=== PATIENT | male | born 1965 | race Caucasian/White ===

== ENCOUNTER 2021-06-19 14:11 | Inpatient (IN) | payer MEDICARE, OTHER ==
[2021-06-19] MEDS ORDERED: SODIUM CHLORIDE 0.9% 1,000 ML IV STA ×2 (15:05)
[2021-06-19 15:23] LABS: ALT 123 U/L (4-49); AST 99 U/L (17-59); African American GFR (CKD) >90 (>60 ml/min/1.73 sqM); Albumin 3.1 g/dL (3.5-5.0); Alkaline Phosphatase 208 U/L (38-126); Anion Gap 10 mmol/L; Basophils % (A) 0 %; Blood Urea Nitrogen 16 mg/dL (9-20); Carbon Dioxide 22 mmol/L (22-30); Chloride 97 mmol/L (98-107); Creatine Kinase 25 U/L (55-170); Eosinophils # (A) 0.3 k/uL (0-0.7); Eosinophils % (A) 3 %; Glucose 122 mg/dL (74-99); HGB 12.5 gm/dL (13.0-17.5); Lipase 23 U/L (23-300); Lymphocytes # (A) 0.9 k/uL (1.0-4.8); Lymphocytes % (A) 9 %; MCHC 32.9 g/dL (31.0-37.0); MCV 88.2 fL (80.0-100.0); Magnesium 1.8 mg/dL (1.6-2.3); Mean Platelet Volume 7.1; Monocytes # (A) 0.7 k/uL (0-1.0); Monocytes % (A) 6 %; Neutrophils # (A) 8.7 k/uL (1.3-7.7); Neutrophils % (A) 81 %; Non-African American GFR(CKD) >90 (>60 ml/min/1.73 sqM); Platelet Count 596 k/uL (150-450); Potassium 5.2 mmol/L (3.5-5.1); RBC 4.31 m/uL (4.30-5.90); RDW 13.2 % (11.5-15.5); Sodium 129 mmol/L (137-145); Total Bilirubin 0.8 mg/dL (0.2-1.3); Total Protein 6.5 g/dL (6.3-8.2); WBC 10.7 k/uL (3.8-10.6)
--- NOTE | 2021-06-19 15:27 | XR ---
EXAMINATION TYPE: XR chest 2V DATE OF EXAM: 06/19/2021 COMPARISON: 03/27/2017 HISTORY: Shortness of breath TECHNIQUE: Frontal and lateral views of the chest are obtained. FINDINGS: Scattered senescent parenchymal changes noted. Hyperinflation compatible with COPD. Coarse upper lobe infiltrates with underlying emphysematous change. Correlate for underlying pneumoni a. Superimposed interstitial lung disease difficult to exclude. Heart size is stable. Mediastinal structures are stable and grossly unremarkable. No evidence for hilar prominence. Degenerative changes dorsal spine. IMPRESSION: 1. Coarse upper lobe infiltrates with underlying emphysematous change. Correlate for underlying pneum onia. Superimposed interstitial lung disease difficult to exclude.
--- NOTE | 2021-06-19 16:19 | ED ---
Dizziness HPI - General Chief Complaint: Syncope Stated Complaint: FLORA Time Seen by Provider: 06/19/21 14:15 Source: patient, RN notes reviewed Mode of arrival: ambulatory Limitations: no limitations - History of Present Illness Initial Comments: 56-year-old male with a history of smoking history of heart disease who presents with complaints of weakness and near syncopal episodes. Lightheaded. He states she's been having black out episodes for past week or so he was found at home they have a blood pressure 71/47. He does admit to decreased oral intake and the 15th 20 pound weight loss over last month or so. He states he is urinating dark foul-smelling urine he was found have a temperature 100.5 upon arrival to emergency department orally but he does admit to smoking a cigarette just prior to coming in. He does not feel short of breath at this time he did earlier today he does get exertional dyspnea. No other current complaints or modifying factors MD Complaint: dizziness, lightheadedness, near syncope - Related Data Home Medications Medication Instructions Recorded Confirmed Buprenorphine HCl/Naloxone HCl 1 film SL TID 03/13/15 06/19/21 [Suboxone 8 mg-2 mg Sl Film] Aspirin [Adult Low Dose Aspirin EC] 81 tab PO DAILY 03/28/17 06/19/21 Albuterol Inhaler [Ventolin Hfa 2 puff INHALATION RT-QID PRN 06/19/21 06/19/21 Inhaler] Atorvastatin [Lipitor] 40 mg PO DAILY 06/19/21 06/19/21 Budesonide/Formoterol Fumarate 2 puff INHALATION RT-BID PRN 06/19/21 06/19/21 [Symbicort 160-4.5 Mcg Inhaler] Carvedilol [Coreg] 6.25 mg PO BID 06/19/21 06/19/21 Fluticasone/Umeclidin/Vilanter 1 puff INHALATION RT-DAILY PRN 06/19/21 06/19/21 [Trelegy Ellipta 200-62.5-25] Nicotine 21Mg/24Hr Patch [Habitrol] 1 patch TRANSDERM DAILY PRN 06/19/21 06/19/21 Sacubitril/Valsartan [Entresto 97 1 tab PO BID 06/19/21 06/19/21 mg-103 mg Tablet] Allergies Allergy/AdvReac Type Severity Reaction Status Date / Time clopidogrel bisulfate Allergy Dyspnea,HIV Verified 06/19/21 16:32 [From Plavix] ES,SWELLING Review of Systems ROS Statement: Those systems with pertinent positive or pertinent negative responses have been documented in the HPI. ROS Other: All systems not noted in ROS Statement are negative. 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, takes saboxone Last Myocardial Infarction Date:: 2008 History of Any Multi-Drug Resistant Organisms: None Reported Past Surgical History: Heart Catheterization, Heart Catheterization With Stent, Hernia Repair, Pacemaker Additional Past Surgical History / Comment(s): CARPAL TUNNEL BILATERAL, Heart cath 9 times with 5 stents Past Anesthesia/Blood Transfusion Reactions: No Reported Reaction Date of Last Stent Placement:: 2010 Type of Cardiac Device: Permanent Pacemaker Device Placement Date:: 2008 Past Psychological History: No Psychological Hx Reported Smoking Status: Current every day smoker Past Alcohol Use History: None Reported Past Drug Use History: Marijuana - Past Family History Father Family Medical History: No Reported History Mother Family Medical History: Myocardial Infarction ([place]) General Exam - General Exam Comments Initial Comments: This a well-developed thin appearing male who is awake alert oriented 3 Limitations: no limitations General appearance: alert, in no apparent distress Head exam: Present: atraumatic, normocephalic, normal inspection Eye exam: Present: normal appearance, PERRL, EOMI. Absent: scleral icterus, conjunctival injection, periorbital swelling ENT exam: Present: mucous membranes dry Neck exam: Present: normal inspection, full ROM, other. Absent: tenderness, meningismus, lymphadenopathy Respiratory exam: Present: decreased breath sounds. Absent: respiratory distress, wheezes, rales, rhonchi, stridor Cardiovascular Exam: Present: normal rhythm, tachycardia (No stridor JVD or bruits), normal heart sounds. Absent: systolic murmur, diastolic murmur, rubs, gallop, clicks GI/Abdominal exam: Present: soft, normal bowel sounds. Absent: distended, tenderness, guarding, rebound, rigid, bruit, pulsatile mass Extremities exam: Present: normal inspection, full ROM, normal capillary refill. Absent: tenderness, pedal edema, joint swelling, calf tenderness Back exam: Present: normal inspection Neurological exam: Present: alert, oriented X3, CN II-XII intact Psychiatric exam: Present: normal affect, normal mood Skin exam: Present: warm, dry, intact, normal color. Absent: rash Course Vital Signs 06/19/21 06/19/21 06/19/21 14:23 14:47 18:52 Temperature 100.1 F H Pulse Rate 105 H 90 82 Respiratory 20 18 20 Rate Blood Pressure 83/51 106/62 93/70 O2 Sat by Pulse 95 92 L 92 L Oximetry EKG Findings - EKG Results: EKG: interpreted by ERMD (Sinus rhythm 98. Interval 123 QRS 101 QT since QTC 360/372 poor R-wave progression no apparent acute ST-T wave changes.) Medical Decision Making - Medical Decision Making I did discuss findings with patient and his as well as with Dr. Pretty. Patient will be admitted for inpatient evaluation and treatment evidence pneumonia due to the symptom complex concern for neoplasm. Pulmonary medicine will be consulted - Lab Data Result diagrams: 06/19/21 15:07 06/19/21 15:07 Lab Results 06/19/21 06/19/21 06/19/21 Range/Units 14:45 15:07 15:07 WBC 10.7 H (3.8-10.6) k/uL RBC 4.31 (4.30-5.90) m/uL Hgb 12.5 L (13.0-17.5) gm/dL Hct 38.0 L (39.0-53.0) % MCV 88.2 (80.0-100.0) fL MCH 29.0 (25.0-35.0) pg MCHC 32.9 (31.0-37.0) g/dL RDW 13.2 (11.5-15.5) % Plt Count 596 H (150-450) k/uL MPV 7.1 Neutrophils % 81 % Lymphocytes % 9 % Monocytes % 6 % Eosinophils % 3 % Basophils % 0 % Neutrophils # 8.7 H (1.3-7.7) k/uL Lymphocytes # 0.9 L (1.0-4.8) k/uL Monocytes # 0.7 (0-1.0) k/uL Eosinophils # 0.3 (0-0.7) k/uL Basophils # 0.0 (0-0.2) k/uL Sodium 129 L (137-145) mmol/L Potassium 5.2 H (3.5-5.1) mmol/L Chloride 97 L (98-107) mmol/L Carbon Dioxide 22 (22-30) mmol/L Anion Gap 10 mmol/L BUN 16 (9-20) mg/dL Creatinine 0.73 (0.66-1.25) mg/dL Est GFR (CKD-EPI)AfAm >90 (>60 ml/min/1.73 sqM) Est GFR (CKD-EPI)NonAf >90 (>60 ml/min/1.73 sqM) Glucose 122 H (74-99) mg/dL Plasma Lactic Acid Yevgeniy (0.7-2.0) mmol/L Calcium 9.0 (8.4-10.2) mg/dL Magnesium 1.8 (1.6-2.3) mg/dL Total Bilirubin 0.8 (0.2-1.3) mg/dL AST 99 H (17-59) U/L ALT 123 H (4-49) U/L Alkaline Phosphatase 208 H (38-126) U/L Creatine Kinase 25 L (55-170) U/L Troponin I (0.000-0.034) ng/mL Total Protein 6.5 (6.3-8.2) g/dL Albumin 3.1 L (3.5-5.0) g/dL Lipase 23 (23-300) U/L Coronavirus (PCR) Not Detected (Not Detectd) 06/19/21 06/19/21 Range/Units 15:07 15:07 WBC (3.8-10.6) k/uL RBC (4.30-5.90) m/uL Hgb (13.0-17.5) gm/dL Hct (39.0-53.0) % MCV (80.0-100.0) fL MCH (25.0-35.0) pg MCHC (31.0-37.0) g/dL RDW (11.5-15.5) % Plt Count (150-450) k/uL MPV Neutrophils % % Lymphocytes % % Monocytes % % Eosinophils % % Basophils % % Neutrophils # (1.3-7.7) k/uL Lymphocytes # (1.0-4.8) k/uL Monocytes # (0-1.0) k/uL Eosinophils # (0-0.7) k/uL Basophils # (0-0.2) k/uL Sodium (137-145) mmol/L Potassium (3.5-5.1) mmol/L Chloride (98-107) mmol/L Carbon Dioxide (22-30) mmol/L Anion Gap mmol/L BUN (9-20) mg/dL Creatinine (0.66-1.25) mg/dL Est GFR (CKD-EPI)AfAm (>60 ml/min/1.73 sqM) Est GFR (CKD-EPI)NonAf (>60 ml/min/1.73 sqM) Glucose (74-99) mg/dL Plasma Lactic Acid Yevgeniy 1.6 (0.7-2.0) mmol/L Calcium (8.4-10.2) mg/dL Magnesium (1.6-2.3) mg/dL Total Bilirubin (0.2-1.3) mg/dL AST (17-59) U/L ALT (4-49) U/L Alkaline Phosphatase (38-126) U/L Creatine Kinase (55-170) U/L Troponin I <0.012 (0.000-0.034) ng/mL Total Protein (6.3-8.2) g/dL Albumin (3.5-5.0) g/dL Lipase (23-300) U/L Coronavirus (PCR) (Not Detectd) - Radiology Data Radiology results: report reviewed (Imaging reviewed evidence of bilateral upper lobe infiltrates), image reviewed Disposition Clinical Impression: Bilateral upper lobe pneumonia due to Escherichia coli, Febrile illness, acute, Dehydration, Failure to thrive in adult Disposition: ADMITTED IP TO THIS HOSP Condition: Fair Referrals: Celso Garcia MD [Primary Care Provider] - 1-2 days
[2021-06-19] MEDS ORDERED: LOPERAMIDE 2 MG CAP PO PRN (18:37)
[2021-06-19] MEDS ORDERED: ONDANSETRON 4 MG/2 ML VIAL IVP PRN (18:37)
[2021-06-19] MEDS ORDERED: MAG HYDROX/AL HYDROX/SIMETH 30 ML CUP PO PRN (18:37)
[2021-06-19] MEDS ORDERED: NALOXONE 0.4 MG/ML 1 ML VIAL IV PRN (18:37)
[2021-06-19] MEDS ORDERED: cefTRIAXone IN SWFI 1,000 MG/10 ML SYRINGE IVP STA (18:39)
[2021-06-19] MEDS ORDERED: SYMBICORT 160-4.5 MCG INHALER INHALATION PRN (18:42)
--- NOTE | 2021-06-19 18:45 | P.HPIM ---
History of Present Illness H&P Date: 06/19/21 This 56-year-old male with past medical history of coronary artery disease status post multiple stents COPD hypertension admitted to the hospital for not feeding well for the last several days feeding weak feeling dizzy losing weight Review of systems and systems has been reviewed all negative and positive findings as per history of present illness Constitutional: No acute distress, conversant, pleasant Eyes: Anicteric sclerae, moist conjunctiva, no lid-lag PERRLA ENMT: NC/AT Oropharynx clear, no erythema, exudates Neck: Supple, FROM, no masses, or JVD No carotid bruits No thyromegaly Lungs: Clear to auscultation Clear to percussion Normal respiratory effort, no accessory muscle use Cardiovascular: Heart regular in rate and rhythm, No murmurs, gallops, or rubs No peripheral edema Abdominal: Soft Nontender, no guarding, rebound or rigidity Abdomen moving with respiration Normoactive bowel sounds No hepatomegaly, No splenomegaly No palpable mass No abdominal wall hernia noted Skin: Normal temperature, tone, texture, turgor No induration No subcutaneous nodules No rash, lesions No ulcers Extremities: No digital cyanosis No clubbing Pedal pulses intact and symmetrical Radial pulses intact and symmetrical Normal gait and station No calf tenderness Psychiatric:Alert and oriented to person, place and time Appropriate affect Intact judgement Neuro: Muscles Strength 5/5 in all 4 extremities Sensation to light touch grossly present throughout Cranial nerves II-XII grossly intact No focal sensory deficits Suspected pneumonia we'll start the patient on IV antibiotics Lung mass and malignancy cannot be ruled out initially we'll check d-dimer if it's positive we'll check computed tomography scan of the lungs to rule out PE if not we'll check computed tomography scan of the lungs with IV contrast will consult pulmonology Current artery disease with dizziness we'll check troponins and will consult cardiology Status post pacemaker and defibrillator placement Multiple medical problems Past Medical History Past Medical History: Atrial Fibrillation, Coronary Artery Disease (CAD), Chest Pain / Angina, Heart Failure, COPD, Myocardial Infarction ([place]) Additional Past Medical History / Comment(s): 3 MIs in 2008, 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, takes saboxone Last Myocardial Infarction Date:: 2008 History of Any Multi-Drug Resistant Organisms: None Reported Past Surgical History: Heart Catheterization, Heart Catheterization With Stent, Hernia Repair, Pacemaker Additional Past Surgical History / Comment(s): CARPAL TUNNEL BILATERAL, Heart cath 9 times with 5 stents Past Anesthesia/Blood Transfusion Reactions: No Reported Reaction Date of Last Stent Placement:: 2010 Type of Cardiac Device: Permanent Pacemaker Device Placement Date:: 2008 Past Psychological History: No Psychological Hx Reported Smoking Status: Current every day smoker Past Alcohol Use History: None Reported Past Drug Use History: Marijuana - Past Family History Father Family Medical History: No Reported History Mother Family Medical History: Myocardial Infarction ([place]) Medications and Allergies Home Medications Medication Instructions Recorded Confirmed Type Buprenorphine HCl/Naloxone HCl 1 film SL TID 03/13/15 06/19/21 History [Suboxone 8 mg-2 mg Sl Film] Aspirin [Adult Low Dose Aspirin EC] 81 tab PO DAILY 03/28/17 06/19/21 History Albuterol Inhaler [Ventolin Hfa 2 puff INHALATION RT-QID PRN 06/19/21 06/19/21 History Inhaler] Atorvastatin [Lipitor] 40 mg PO DAILY 06/19/21 06/19/21 History Budesonide/Formoterol Fumarate 2 puff INHALATION RT-BID PRN 06/19/21 06/19/21 History [Symbicort 160-4.5 Mcg Inhaler] Carvedilol [Coreg] 6.25 mg PO BID 06/19/21 06/19/21 History Fluticasone/Umeclidin/Vilanter 1 puff INHALATION RT-DAILY PRN 06/19/21 06/19/21 History [Trelegy Ellipta 200-62.5-25] Nicotine 21Mg/24Hr Patch [Habitrol] 1 patch TRANSDERM DAILY PRN 06/19/21 06/19/21 History Sacubitril/Valsartan [Entresto 97 1 tab PO BID 06/19/21 06/19/21 History mg-103 mg Tablet] Allergies Allergy/AdvReac Type Severity Reaction Status Date / Time clopidogrel bisulfate Allergy Dyspnea,HIV Verified 06/19/21 16:32 [From Plavix] ES,SWELLING Physical Exam Vitals: Vital Signs Temp Pulse Resp BP Pulse Ox 06/19/21 14:47 90 18 106/62 92 L 06/19/21 14:23 100.1 F H 105 H 20 83/51 95 Intake and Output 06/19/21 06/19/21 06/19/21 06:59 14:59 22:59 Other: Weight 50.802 kg Results CBC & Chem 7: 06/19/21 15:07 06/19/21 15:07 Labs: Abnormal Lab Results - Last 24 Hours (Table) 06/19/21 06/19/21 Range/Units 15:07 15:07 WBC 10.7 H (3.8-10.6) k/uL Hgb 12.5 L (13.0-17.5) gm/dL Hct 38.0 L (39.0-53.0) % Plt Count 596 H (150-450) k/uL Neutrophils # 8.7 H (1.3-7.7) k/uL Lymphocytes # 0.9 L (1.0-4.8) k/uL Sodium 129 L (137-145) mmol/L Potassium 5.2 H (3.5-5.1) mmol/L Chloride 97 L (98-107) mmol/L Glucose 122 H (74-99) mg/dL AST 99 H (17-59) U/L ALT 123 H (4-49) U/L Alkaline Phosphatase 208 H (38-126) U/L Creatine Kinase 25 L (55-170) U/L Albumin 3.1 L (3.5-5.0) g/dL
[2021-06-19] MEDS ORDERED: PNEUMONIA PROTOCOL UTILIZED 1 EACH MISC PO PRN (18:58)
--- NOTE | 2021-06-19 19:05 | ED ---
Medical Decision Making - Lab Data Result diagrams: 06/19/21 15:07 06/19/21 15:07 Lab Results 06/19/21 06/19/21 06/19/21 Range/Units 14:45 15:07 15:07 WBC 10.7 H (3.8-10.6) k/uL RBC 4.31 (4.30-5.90) m/uL Hgb 12.5 L (13.0-17.5) gm/dL Hct 38.0 L (39.0-53.0) % MCV 88.2 (80.0-100.0) fL MCH 29.0 (25.0-35.0) pg MCHC 32.9 (31.0-37.0) g/dL RDW 13.2 (11.5-15.5) % Plt Count 596 H (150-450) k/uL MPV 7.1 Neutrophils % 81 % Lymphocytes % 9 % Monocytes % 6 % Eosinophils % 3 % Basophils % 0 % Neutrophils # 8.7 H (1.3-7.7) k/uL Lymphocytes # 0.9 L (1.0-4.8) k/uL Monocytes # 0.7 (0-1.0) k/uL Eosinophils # 0.3 (0-0.7) k/uL Basophils # 0.0 (0-0.2) k/uL Sodium 129 L (137-145) mmol/L Potassium 5.2 H (3.5-5.1) mmol/L Chloride 97 L (98-107) mmol/L Carbon Dioxide 22 (22-30) mmol/L Anion Gap 10 mmol/L BUN 16 (9-20) mg/dL Creatinine 0.73 (0.66-1.25) mg/dL Est GFR (CKD-EPI)AfAm >90 (>60 ml/min/1.73 sqM) Est GFR (CKD-EPI)NonAf >90 (>60 ml/min/1.73 sqM) Glucose 122 H (74-99) mg/dL Plasma Lactic Acid Yevgeniy (0.7-2.0) mmol/L Calcium 9.0 (8.4-10.2) mg/dL Magnesium 1.8 (1.6-2.3) mg/dL Total Bilirubin 0.8 (0.2-1.3) mg/dL AST 99 H (17-59) U/L ALT 123 H (4-49) U/L Alkaline Phosphatase 208 H (38-126) U/L Creatine Kinase 25 L (55-170) U/L Troponin I (0.000-0.034) ng/mL Total Protein 6.5 (6.3-8.2) g/dL Albumin 3.1 L (3.5-5.0) g/dL Lipase 23 (23-300) U/L Coronavirus (PCR) Not Detected (Not Detectd) 06/19/21 06/19/21 Range/Units 15:07 15:07 WBC (3.8-10.6) k/uL RBC (4.30-5.90) m/uL Hgb (13.0-17.5) gm/dL Hct (39.0-53.0) % MCV (80.0-100.0) fL MCH (25.0-35.0) pg MCHC (31.0-37.0) g/dL RDW (11.5-15.5) % Plt Count (150-450) k/uL MPV Neutrophils % % Lymphocytes % % Monocytes % % Eosinophils % % Basophils % % Neutrophils # (1.3-7.7) k/uL Lymphocytes # (1.0-4.8) k/uL Monocytes # (0-1.0) k/uL Eosinophils # (0-0.7) k/uL Basophils # (0-0.2) k/uL Sodium (137-145) mmol/L Potassium (3.5-5.1) mmol/L Chloride (98-107) mmol/L Carbon Dioxide (22-30) mmol/L Anion Gap mmol/L BUN (9-20) mg/dL Creatinine (0.66-1.25) mg/dL Est GFR (CKD-EPI)AfAm (>60 ml/min/1.73 sqM) Est GFR (CKD-EPI)NonAf (>60 ml/min/1.73 sqM) Glucose (74-99) mg/dL Plasma Lactic Acid Yevgeniy 1.6 (0.7-2.0) mmol/L Calcium (8.4-10.2) mg/dL Magnesium (1.6-2.3) mg/dL Total Bilirubin (0.2-1.3) mg/dL AST (17-59) U/L ALT (4-49) U/L Alkaline Phosphatase (38-126) U/L Creatine Kinase (55-170) U/L Troponin I <0.012 (0.000-0.034) ng/mL Total Protein (6.3-8.2) g/dL Albumin (3.5-5.0) g/dL Lipase (23-300) U/L Coronavirus (PCR) (Not Detectd) Disposition Clinical Impression: Bilateral upper lobe pneumonia due to Escherichia coli, Febrile illness, acute, Dehydration, Failure to thrive in adult, Hypotensive episode Disposition: ADMITTED IP TO THIS HOSP Condition: Fair Referrals: Celso Garcia MD [Primary Care Provider] - 1-2 days
--- NOTE | 2021-06-19 19:52 | CT ---
EXAMINATION TYPE: CT brain wo con DATE OF EXAM: 06/19/2021 COMPARISON: None HISTORY: Dizziness. CT DLP: 1119.4 mGycm Automated exposure control for dose reduction was used. Ventricles have normal size. There is no mass effect or midline shift. There is no sign of intracrani al hemorrhage. Calvarium is intact. There is normal aeration of the mastoid sinuses. There is wedge-s haped 3 cm area of hypodensity left posterior temporal lobe. The skull base is intact. 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
[2021-06-19] MEDS: AZITHROMYCIN 500 MG in SODIUM CHLORIDE 0.9% 250 ML IVPB SCH (19:54)
--- NOTE | 2021-06-19 20:34 | CT ---
EXAMINATION TYPE: CT angio chest DATE OF EXAM: 06/19/2021 COMPARISON: 03/27/2017 HISTORY: Elevated d-dimer. CT DLP: 288 mGycm Automated exposure control for dose reduction was used. CONTRAST: Performed with IV Contrast, patient injected with 100ml mL of Isovue 370. There are Three-D postprocessed images. There is extensive pulmonary emphysema. There is extensive honeycomb pattern throughout the lungs wit h coalescent areas in the mid and upper lung hendricks. There is bullous emphysema. Heart size is normal . There is no pericardial effusion. There is no evidence of filling defect in the pulmonary arteries. There are a few paratracheal lymph nodes up to 1 cm. There is left axillary pacemaker. The bony thorax is intact. IMPRESSION: No evidence of pulmonary embolism. Extensive bullous pulmonary emphysema. There is extensive honeycom b infiltrate in the mid and upper lung hendricks which is mostly new compared to the old exam.
[2021-06-19] MEDS: carvediloL 6.25 MG TAB PO SCH (23:11)
[2021-06-19] MEDS: NON FORMULARY DRUG (Buprenorphine Hcl/Naloxone Hcl [Suboxone 8 Mg-2 Mg Sl Film] 1 EACH Fil SUBLINGUAL SCH (23:33)
[2021-06-19] MEDS ORDERED: NICOTINE 21MG/24HR PATCH TRANSDERM SCH (23:45)
[2021-06-20 00:01] LABS: Appearance,Urine Clear (Clear); Bilirubin,Urine Negative (Negative); Blood,Urine Negative (Negative); Color,Urine Light Yellow; Glucose,Urine (UA) Negative (Negative); Ketones,Urine Negative (Negative); Leukocyte Esterase,Urine Negative (Negative); Nitrite,Urine Negative (Negative); PH, Urine 6.5 (5.0-8.0); Protein,Urine Negative (Negative); Urobilinogen,Urine <2.0 mg/dL (<2.0)
[2021-06-20] MEDS: carvediloL 6.25 MG TAB PO SCH ×2 (06:25→17:03)
[2021-06-20 07:46] LABS: Basophils % (A) 0 %; Eosinophils # (A) 0.7 k/uL (0-0.7); Eosinophils % (A) 7 %; HCT 36.6 % (39.0-53.0); HGB 12.2 gm/dL (13.0-17.5); Hypochromasia Slight; Lymphocytes % (A) 10 %; MCH 29.7 pg (25.0-35.0); MCHC 33.2 g/dL (31.0-37.0); MCV 89.5 fL (80.0-100.0); Mean Platelet Volume 6.9; Monocytes # (A) 0.7 k/uL (0-1.0); Monocytes % (A) 7 %; Neutrophils # (A) 7.7 k/uL (1.3-7.7); Neutrophils % (A) 76 %; Platelet Count 591 k/uL (150-450); RBC 4.09 m/uL (4.30-5.90); RDW 13.3 % (11.5-15.5); WBC 10.2 k/uL (3.8-10.6)
[2021-06-20 07:52] LABS: ALT 97 U/L (4-49); AST 68 U/L (17-59); African American GFR (CKD) >90 (>60 ml/min/1.73 sqM); Albumin 2.7 g/dL (3.5-5.0); Alkaline Phosphatase 165 U/L (38-126); Anion Gap 7 mmol/L; Blood Urea Nitrogen 9 mg/dL (9-20); Calcium 8.7 mg/dL (8.4-10.2); Carbon Dioxide 24 mmol/L (22-30); Chloride 101 mmol/L (98-107); Glucose 125 mg/dL (74-99); Non-African American GFR(CKD) >90 (>60 ml/min/1.73 sqM); Potassium 4.8 mmol/L (3.5-5.1); Sodium 132 mmol/L (137-145); Total Bilirubin 0.6 mg/dL (0.2-1.3)
[2021-06-20] MEDS: ALBUTEROL HFA INHALER INHALATION PRN ×2 (08:23→12:10)
[2021-06-20] MEDS: NICOTINE 14MG/24HR PATCH TRANSDERM SCH (09:42)
[2021-06-20] MEDS: NON FORMULARY DRUG (Buprenorphine Hcl/Naloxone Hcl [Suboxone 8 Mg-2 Mg Sl Film] 1 EACH Fil SUBLINGUAL SCH ×3 (09:42→19:47)
[2021-06-20] MEDS: ASPIRIN 81 MG PO SCH (09:42)
[2021-06-20] MEDS: ATORVASTATIN 40 MG TAB PO SCH (09:42)
--- NOTE | 2021-06-20 09:44 | XR ---
EXAMINATION TYPE: XR chest 2V DATE OF EXAM: 06/20/2021 COMPARISON: 06/19/2021 HISTORY: 56 years Male. STUDY INDICATION GIVEN: pneumonia . TECHNIQUE: Frontal and lateral chest radiographs. IMPRESSION: COPD/emphysema and/ or interstitial lung disease-fibrotic changes again seen. Bilateral upper lung op acities are not significantly changed and may be reflective of above process though developing/underl ricky infiltrate is difficult to entirely exclude. Cardiac device stable in position. Heart is normal in size. No pneumothorax or large effusion. Osseous structures acutely intact.
--- NOTE | 2021-06-20 10:46 | P.CRDCN ---
History of Present Illness Consult date: 06/20/21 Reason for Consult (text): CAD, dizziness History of present illness: HISTORY OF PRESENT ILLNESS This is a 56-year-old male with past medical history of paroxysmal atrial fibrillation not on correction anticoagulation, coronary artery disease with multiple stents placed [address] Arteaga from [place], heart failure with pacemaker/ICD placement at the time of his heart attacks 7 years ago, COPD, chronic tobacco and marijuana use. We have been asked to see him in consultation for and CAD. Patient gives history starting last Tuesday of lightheadedness when he bends over he stands up he starts feeling lightheaded like he is in a pass out. He checked his blood pressure was 82/46 he stopped taking his Coreg for about 3 days. 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 Patient states that he has been losing weight and forcing himself to eat and he has no appetite. He denies having any fever or chills. He continues to smoke with history of 43 years at 2-3 packs per day currently trying to stop at half a pack per day with nicotine patch. Patient denies having any cough or sputum production. He does have some wheezing. He does not recall when he had a last stress test or echocardiogram but thinks it's at least a year ago. EKG normal sinus rhythm with previous myocardial infarction. WBC 10.7, hemoglobin 12.5, platelet count 596. D-dimer 5.01. Sodium 129, potassium 5.2, chloride 92, CO2 22, BUN 16 and creatinine 0.73. Blood sugar 1 22. AST 99, ALT 123, alkaline phosphatase 208. CK 25. Albumin 3.1. Troponins negative on 3 draws. CAT scan of the brain revealed left posterior temporal lobe infarct which appears old or subacute. CT angiogram of the chest revealed no evidence of pulmonary embolism. Extensive bullous pulmonary emphysema. Extensive honeycomb infiltrate in the mid and upper lung hendricks which is mostly no Current cardiac medications include aspirin 81 mg daily, atorvastatin 40 mg daily, Coreg 6.25 mg twice daily, Entresto 97 mg103 mg twice daily. REVIEW OF SYSTEMS Constitutional: No fever, no chills. No weakness, fatigue or lethargy. EENT: No headache. Reports dizziness. Lungs: No shortness of breath, cough, no sputum production. No wheezing. Cardiovascular: No chest pain, no lower extremity edema. No palpitations. No paroxysmal nocturnal dyspnea. No orthopnea. Reports lightheadedness or dizziness. No syncopal episodes. Abdominal: No abdominal pain. No nausea, vomiting. No diarrhea. No constipation. No bloody or tarry stools.. Reports chronic loss of appetite. Reports weight loss Genitourinary: No dysuria.. No urinary retention. Musculoskeletal: No myalgias. No muscle weakness, no gait dysfunction, no frequent falls. No back pain. No neck pain. Integumentary: No wounds, no lesions. No rash or pruritus. No unusual bruising. Neurologic: No aphasia. No facial droop. No change in mentation. No head injury. No headache. No paralysis. No paresthesia. Psychiatric: No depression. No anxiety. Endocrine: No abnormal blood sugars. PHYSICAL EXAMINATION Gen: This is a thin cachectic appearing 56-year-old male. He is resting in bed appears to be comfortable and in no acute distress. VS: Afebrile, heart rate 93, blood pressure 111/65, pulse ox 92% on 2 L nasal cannula. HEENT: Head is atraumatic, normocephalic. Pupils equal, round. Sclerae is anicteric. NECK: Supple. No JVD. No lymphadenopathy. No thyromegaly. No carotid bruit LUNGS: Clear to auscultation. No wheezes or rhonchi. No intercostal retractions. HEART: Regular rate and rhythm. No murmur. ABDOMEN: Soft. Bowel sounds are present. No masses. No tenderness. EXTREMITIES: No pedal edema. No calf tenderness. NEUROLOGICAL: Patient is awake, alert and oriented x3. Cranial nerves 2 through 12 are grossly intact. 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 Nurse practitioner note has been reviewed, I agree with documented findings and plan of care. Patient was seen and examined. 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, takes saboxone Last Myocardial Infarction Date:: 2008 History of Any Multi-Drug Resistant Organisms: None Reported Past Surgical History: Heart Catheterization, Heart Catheterization With Stent, Hernia Repair, Pacemaker Additional Past Surgical History / Comment(s): CARPAL TUNNEL BILATERAL, Heart cath 9 times with 5 stents Past Anesthesia/Blood Transfusion Reactions: No Reported Reaction Date of Last Stent Placement:: 2010 Type of Cardiac Device: Permanent Pacemaker Device Placement Date:: 2008 Past Psychological History: No Psychological Hx Reported Smoking Status: Current every day smoker Past Alcohol Use History: None Reported Additional Past Alcohol Use History / Comment(s): half pack a day smoker Past Drug Use History: Marijuana Additional Drug Use History / Comment(s): Marijuana at night 6 nights a week to sleep - Past Family History Father Family Medical History: No Reported History Mother Family Medical History: Myocardial Infarction ([place]) Medications and Allergies Home Medications Medication Instructions Recorded Confirmed Type Buprenorphine HCl/Naloxone HCl 1 film SL TID 03/13/15 06/19/21 History [Suboxone 8 mg-2 mg Sl Film] Aspirin [Adult Low Dose Aspirin EC] 81 tab PO DAILY 03/28/17 06/19/21 History Albuterol Inhaler [Ventolin Hfa 2 puff INHALATION RT-QID PRN 06/19/21 06/19/21 History Inhaler] Atorvastatin [Lipitor] 40 mg PO DAILY 06/19/21 06/19/21 History Budesonide/Formoterol Fumarate 2 puff INHALATION RT-BID PRN 06/19/21 06/19/21 History [Symbicort 160-4.5 Mcg Inhaler] Carvedilol [Coreg] 6.25 mg PO BID 06/19/21 06/19/21 History Fluticasone/Umeclidin/Vilanter 1 puff INHALATION RT-DAILY PRN 06/19/21 06/19/21 History [Trelegy Ellipta 200-62.5-25] Nicotine 21Mg/24Hr Patch [Habitrol] 1 patch TRANSDERM DAILY PRN 06/19/21 06/19/21 History Sacubitril/Valsartan [Entresto 97 1 tab PO BID 06/19/21 06/19/21 History mg-103 mg Tablet] Allergies Allergy/AdvReac Type Severity Reaction Status Date / Time clopidogrel bisulfate Allergy Dyspnea,HIV Verified 06/19/21 16:32 [From Plavix] ES,SWELLING Physical Exam Vitals: Vital Signs Temp Pulse Pulse Resp BP BP Pulse Ox 06/20/21 03:55 98.1 F 85 16 95/52 91 L 06/20/21 00:00 98.3 F 85 18 103/61 94 L 06/19/21 23:08 68 18 94/64 93 L 06/19/21 18:52 82 20 93/70 92 L 06/19/21 14:47 90 18 106/62 92 L 06/19/21 14:23 100.1 F H 105 H 20 83/51 95 Intake and Output 06/19/21 06/20/21 06/20/21 22:59 06:59 14:59 Intake Total 540 Output Total 300 Balance 240 Intake: Oral 540 Output: Urine 300 Other: Voiding Method Toilet # Voids 1 Weight 50.802 kg Results 06/20/21 07:15 06/20/21 07:15 Cardiac Enzymes 06/19/21 06/19/21 06/19/21 Range/Units 15:07 15:07 18:50 AST 99 H (17-59) U/L Troponin I <0.012 <0.012 (0.000-0.034) ng/mL 06/19/21 06/20/21 Range/Units 20:32 07:15 AST 68 H (17-59) U/L Troponin I <0.012 (0.000-0.034) ng/mL CBC 06/19/21 06/20/21 Range/Units 15:07 07:15 WBC 10.7 H 10.2 (3.8-10.6) k/uL RBC 4.31 4.09 L (4.30-5.90) m/uL Hgb 12.5 L 12.2 L (13.0-17.5) gm/dL Hct 38.0 L 36.6 L (39.0-53.0) % Plt Count 596 H 591 H (150-450) k/uL Comprehensive Metabolic Panel 06/19/21 06/20/21 Range/Units 15:07 07:15 Sodium 129 L 132 L (137-145) mmol/L Potassium 5.2 H 4.8 (3.5-5.1) mmol/L Chloride 97 L 101 (98-107) mmol/L Carbon Dioxide 22 24 (22-30) mmol/L BUN 16 9 (9-20) mg/dL Creatinine 0.73 0.58 L (0.66-1.25) mg/dL Glucose 122 H 125 H (74-99) mg/dL Calcium 9.0 8.7 (8.4-10.2) mg/dL AST 99 H 68 H (17-59) U/L ALT 123 H 97 H (4-49) U/L Alkaline Phosphatase 208 H 165 H (38-126) U/L Total Protein 6.5 6.0 L (6.3-8.2) g/dL Albumin 3.1 L 2.7 L (3.5-5.0) g/dL Current Medications Generic Name Dose Route Start Last Admin Trade Name Freq PRN Reason Stop Dose Admin Acetaminophen 650 mg 06/19/21 18:37 Acetaminophen Tab 325 Mg Tab PO Q6HR PRN Mild Pain or Fever > 100.5 Al Hydroxide/Mg Hydroxide 15 ml 06/19/21 18:37 Mag Hydrox/Al Hydrox/Simeth 30 Ml Cup PO Q6HR PRN Indigestion Albuterol Sulfate 2 puff 06/19/21 18:42 Albuterol Hfa Inhaler INHALATION RT-QID PRN Shortness Of Breath Aspirin 81 mg 06/20/21 09:00 Aspirin 81 Mg PO DAILY [facility] Atorvastatin Calcium 40 mg 06/20/21 09:00 Atorvastatin 40 Mg Tab PO DAILY [facility] Budesonide/Formoterol Fumarate 2 puff 06/19/21 18:42 Symbicort 160-4.5 Mcg Inhaler INHALATION RT-BID PRN Shortness Of Breath Carvedilol 6.25 mg 06/19/21 19:45 06/20/21 06:25 Carvedilol 6.25 Mg Tab PO Not Given BID-W/MEALS [facility] Azithromycin 500 mg/ Sodium 250 mls @ 250 mls/hr 06/19/21 19:00 06/19/21 19:54 Chloride IVPB 250 mls/hr DAILY@1900 [facility] Administration Ceftriaxone Sodium 1 gm/ 50 mls @ 100 mls/hr 06/20/21 09:00 Sodium Chloride IVPB DAILY [facility] Loperamide HCl 2 mg 06/19/21 18:37 Loperamide 2 Mg Cap PO Q2HR PRN Loose Stool Miscellaneous Information 1 each 06/19/21 18:58 Pneumonia Protocol Utilized 1 Each Misc PO ONCE PRN Per Protocol Naloxone HCl 0.2 mg 06/19/21 18:37 Naloxone 0.4 Mg/Ml 1 Ml Vial IV Q2M PRN Opioid Reversal Nicotine 1 patch 06/19/21 23:45 06/20/21 00:03 Nicotine 21mg/24hr Patch TRANSDERM Not Given DAILY [facility] Non-Formulary Medication 1 film 06/19/21 22:00 06/19/21 23:33 Buprenorphine Hcl/Naloxone Hcl [Suboxone 8 Mg-2 Mg Sl Film] SUBLINGUAL Not Given TID [facility] Ondansetron HCl 4 mg 06/19/21 18:37 Ondansetron 4 Mg/2 Ml Vial IVP Q8HR PRN Nausea And Vomiting Intake and Output 06/19/21 06/20/21 06/20/21 22:59 06:59 14:59 Intake Total 540 Output Total 300 Balance 240 Intake: Oral 540 Output: Urine 300 Other: Voiding Method Toilet # Voids 1 Weight 50.802 kg 06/20/21 07:15 06/20/21 07:15
[2021-06-20] MEDS ORDERED: LORazepam 0.5 MG TAB PO PRN (10:58)
[2021-06-20 12:33] VITALS: BMI 17.5
[2021-06-20] MEDS: MIDODRINE 5 MG TAB PO SCH ×2 (12:33→17:03)
--- NOTE | 2021-06-20 13:07 | P.PN ---
Subjective Progress Note Date: 06/20/21 Principal diagnosis: This 56-year-old male with past medical history of coronary artery disease status post multiple stents COPD hypertension admitted to the hospital for not feeding well for the last several days feeding weak feeling dizzy losing weight Review of systems and systems has been reviewed all negative and positive findings as per history of present illness Patient feels better today continues to be weak less short of breath less dizzy Constitutional: No acute distress, conversant, pleasant Eyes: Anicteric sclerae, moist conjunctiva, no lid-lag PERRLA ENMT: NC/AT Oropharynx clear, no erythema, exudates Neck: Supple, FROM, no masses, or JVD No carotid bruits No thyromegaly Lungs: Clear to auscultation Clear to percussion Normal respiratory effort, no accessory muscle use Cardiovascular: Heart regular in rate and rhythm, No murmurs, gallops, or rubs No peripheral edema Abdominal: Soft Nontender, no guarding, rebound or rigidity Abdomen moving with respiration Normoactive bowel sounds No hepatomegaly, No splenomegaly No palpable mass No abdominal wall hernia noted Skin: Normal temperature, tone, texture, turgor No induration No subcutaneous nodules No rash, lesions No ulcers Extremities: No digital cyanosis No clubbing Pedal pulses intact and symmetrical Radial pulses intact and symmetrical Normal gait and station No calf tenderness Psychiatric:Alert and oriented to person, place and time Appropriate affect Intact judgement Neuro: Muscles Strength 5/5 in all 4 extremities Sensation to light touch grossly present throughout Cranial nerves II-XII grossly intact No focal sensory deficits Suspected pneumonia we'll start the patient on IV antibiotics Pneumonia on the computed tomography scan pulmonology has been consulted Current artery disease with dizziness we'll check troponins and will consult cardiology Status post pacemaker and defibrillator placement Multiple medical problems Objective - Vital Signs Vital signs: Vital Signs Temp 98.2 F 06/20/21 12:32 Pulse 79 06/20/21 12:32 Resp 16 06/20/21 12:32 BP 100/66 06/20/21 12:32 Pulse Ox 92 L 06/20/21 09:19 Intake & Output 06/19/21 06/20/21 06/20/21 18:59 06:59 18:59 Intake Total 540 118 Output Total 300 Balance 240 118 Weight 50.802 kg 50.802 kg 50.802 kg Intake: Oral 540 118 Output: Urine 300 Other: Voiding Method Toilet Toilet # Voids 1 - Labs CBC & Chem 7: 06/20/21 07:15 06/20/21 07:15 Labs: Abnormal Lab Results - Last 24 Hours (Table) 06/19/21 06/19/21 06/19/21 Range/Units 15:07 15:07 18:54 WBC 10.7 H (3.8-10.6) k/uL RBC (4.30-5.90) m/uL Hgb 12.5 L (13.0-17.5) gm/dL Hct 38.0 L (39.0-53.0) % Plt Count 596 H (150-450) k/uL Neutrophils # 8.7 H (1.3-7.7) k/uL Lymphocytes # 0.9 L (1.0-4.8) k/uL D-Dimer 5.01 H (<0.60) mg/L FEU Sodium 129 L (137-145) mmol/L Potassium 5.2 H (3.5-5.1) mmol/L Chloride 97 L (98-107) mmol/L Creatinine (0.66-1.25) mg/dL Glucose 122 H (74-99) mg/dL AST 99 H (17-59) U/L ALT 123 H (4-49) U/L Alkaline Phosphatase 208 H (38-126) U/L Creatine Kinase 25 L (55-170) U/L Total Protein (6.3-8.2) g/dL Albumin 3.1 L (3.5-5.0) g/dL 06/20/21 06/20/21 Range/Units 07:15 07:15 WBC (3.8-10.6) k/uL RBC 4.09 L (4.30-5.90) m/uL Hgb 12.2 L (13.0-17.5) gm/dL Hct 36.6 L (39.0-53.0) % Plt Count 591 H (150-450) k/uL Neutrophils # (1.3-7.7) k/uL Lymphocytes # (1.0-4.8) k/uL D-Dimer (<0.60) mg/L FEU Sodium 132 L (137-145) mmol/L Potassium (3.5-5.1) mmol/L Chloride (98-107) mmol/L Creatinine 0.58 L (0.66-1.25) mg/dL Glucose 125 H (74-99) mg/dL AST 68 H (17-59) U/L ALT 97 H (4-49) U/L Alkaline Phosphatase 165 H (38-126) U/L Creatine Kinase (55-170) U/L Total Protein 6.0 L (6.3-8.2) g/dL Albumin 2.7 L (3.5-5.0) g/dL
--- NOTE | 2021-06-20 15:47 | P.CNPUL ---
History of Present Illness Consult date: 06/20/21 Requesting physician: Mariana Pretty Reason for consult: dyspnea, cough, COPD, hypoxemia, abnormal CXR/CT Chief complaint: Shortness of breath. History of present illness: Pulmonary consult dated 06/20/2021. 56-year-old male who has a long-standing history of tobacco use, for many years, who presents with complaints of weakness, low blood pressure, and near syncope. He apparently was lightheaded. He apparently was having low blood pressures in the range of 70 systolic. The patient has apparently had significant weight loss over the last month or so. He apparently lost 15-20 pounds or so in the last month or we were asked to see the patient because of underlying COPD. The patient's chest x-ray showed significant COPD. He does have shortness of breath, although he tends to minimize his complaints. Shortness of breath occurs primarily with exertion. She denies any cough, phlegm production, hemoptysis, fever, chills, or chest pain. He's never seen a lung doctor other than see my partner here in the hospital, in the past. He's never been to our office, or had pulmonary function testing. He does continue to smoke cigarettes. He's been smoking probably for about 44 years. Currently, he has his oxygen off. He is getting saline at 20 mL an hour. His breathing medicat ions is Trelegy, 1 puff a day, which is a combination long-acting beta agonist, inhaled corticosteroid, and long-acting muscarinic antagonist. White count 10.2, hemoglobin 12.2, hematocrit 36.6, and platelet count 591,000. D-dimer was 5.01. Sodium 132, potassium 4.8, chlorides 101, CO2 24, anion gap 7, BUN 9, creatinine 0.58. AST was 68, ALT 97, and total protein was 2.7. Troponins were negative 3. Urine was negative. Chest x-ray shows some coarse upper lobe infiltrates, and emphysematous changes. Brain CT shows a left posterior temporal lobe infarct which appears old or subacute. CT angiogram showed no evidence of pulmonary embolism, extensive bullous pulmonary emphysema, and exte nsive honeycomb infiltrates in the mid and upper lung hendricks. Review of Systems REVIEW OF SYSTEMS: CONSTITUTIONAL: [Negative.] NEUROLOGIC: [ Negative.] HEENT: [ Negative.] CARDIAC: [Negative.] PULMONARY: Shortness of breath on exertion, more typically in the morning. GI: [Negative.] : [Negative.] RHEUMATOLOGIC: [ Negative.] IMMUNOLOGIC: [ Negative.] ENDOCRINE: [Negative. 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, takes saboxone Last Myocardial Infarction Date:: 2008 History of Any Multi-Drug Resistant Organisms: None Reported Past Surgical History: Heart Catheterization, Heart Catheterization With Stent, Hernia Repair, Pacemaker Additional Past Surgical History / Comment(s): CARPAL TUNNEL BILATERAL, Heart cath 9 times with 5 stents Past Anesthesia/Blood Transfusion Reactions: No Reported Reaction Date of Last Stent Placement:: 2010 Type of Cardiac Device: Permanent Pacemaker Device Placement Date:: 2008 Past Psychological History: No Psychological Hx Reported Smoking Status: Current every day smoker Past Alcohol Use History: None Reported Additional Past Alcohol Use History / Comment(s): half pack a day smoker Past Drug Use History: Marijuana Additional Drug Use History / Comment(s): Marijuana at night 6 nights a week to sleep - Past Family History Father Family Medical History: No Reported History Mother Family Medical History: Myocardial Infarction ([place]) Medications and Allergies Home Medications Medication Instructions Recorded Confirmed Type Buprenorphine HCl/Naloxone HCl 1 film SL TID 03/13/15 06/19/21 History [Suboxone 8 mg-2 mg Sl Film] Aspirin [Adult Low Dose Aspirin EC] 81 tab PO DAILY 03/28/17 06/19/21 History Albuterol Inhaler [Ventolin Hfa 2 puff INHALATION RT-QID PRN 06/19/21 06/19/21 History Inhaler] Atorvastatin [Lipitor] 40 mg PO DAILY 06/19/21 06/19/21 History Budesonide/Formoterol Fumarate 2 puff INHALATION RT-BID PRN 06/19/21 06/19/21 History [Symbicort 160-4.5 Mcg Inhaler] Carvedilol [Coreg] 6.25 mg PO BID 06/19/21 06/19/21 History Fluticasone/Umeclidin/Vilanter 1 puff INHALATION RT-DAILY PRN 06/19/21 06/19/21 History [Trelegy Ellipta 200-62.5-25] Nicotine 21Mg/24Hr Patch [Habitrol] 1 patch TRANSDERM DAILY PRN 06/19/21 06/19/21 History Sacubitril/Valsartan [Entresto 97 1 tab PO BID 06/19/21 06/19/21 History mg-103 mg Tablet] Allergies Allergy/AdvReac Type Severity Reaction Status Date / Time clopidogrel bisulfate Allergy Dyspnea,HIV Verified 06/19/21 16:32 [From Plavix] ES,SWELLING Physical Exam Osteopathic Statement: *. No significant issues noted on an osteopathic structural exam other than those noted in the History and Physical/Consult. Vitals: Vital Signs Temp Pulse Pulse Resp BP BP BP 06/20/21 12:32 98.2 F 79 16 06/20/21 09:26 111/75 06/20/21 09:19 93 16 111/65 06/20/21 03:55 98.1 F 85 16 95/52 06/20/21 00:00 98.3 F 85 18 103/61 06/19/21 23:08 68 18 94/64 06/19/21 18:52 82 20 93/70 BP BP Pulse Ox 06/20/21 12:32 100/66 06/20/21 09:26 116/87 112/72 06/20/21 09:19 92 L 06/20/21 03:55 91 L 06/20/21 00:00 94 L 06/19/21 23:08 93 L 06/19/21 18:52 92 L Intake and Output 06/20/21 06/20/21 06/20/21 06:59 14:59 22:59 Intake Total 540 358 Output Total 300 Balance 240 358 Intake: Oral 540 358 Output: Urine 300 Other: Voiding Method Toilet Toilet # Voids 1 Weight 50.802 kg 50.802 kg No acute distress, oriented 3. No respiratory distress. No audible wheezing or use of accessory muscles. HEENT examination is grossly unremarkable. Neck supple. Full range of motion. No adenopathy thyromegaly or neck vein dist ention. Cardiovascular examination reveals regular rhythm rate. S1-S2 normal. No S3 or S4. No discernible murmur noted. Heart rate 79 bpm. Lungs reveal severely diminished breath sounds bilaterally. No wheezes. No crackles. Minimal rhonchi. Room air saturation 95%. Abdomen soft bowel sounds are heard. No masses or tenderness. Extremities are intact. No cyanosis clubbing or edema. Skin is without rash or lesion. Neurologic examination is brief but nonfocal. Results - Laboratory Findings CBC and BMP: 06/20/21 07:15 06/20/21 07:15 PT/INR, D-dimer D-Dimer 5.01 mg/L FEU (<0.60) H 06/19/21 18:54 Abnormal lab findings: Abnormal Labs 06/19/21 06/19/21 06/19/21 15:07 15:07 18:54 WBC 10.7 H RBC Hgb 12.5 L Hct 38.0 L Plt Count 596 H Neutrophils # 8.7 H Lymphocytes # 0.9 L D-Dimer 5.01 H Sodium 129 L Potassium 5.2 H Chloride 97 L Creatinine Glucose 122 H AST 99 H ALT 123 H Alkaline Phosphatase 208 H Creatine Kinase 25 L Total Protein Albumin 3.1 L 06/20/21 06/20/21 07:15 07:15 WBC RBC 4.09 L Hgb 12.2 L Hct 36.6 L Plt Count 591 H Neutrophils # Lymphocytes # D-Dimer Sodium 132 L Potassium Chloride Creatinine 0.58 L Glucose 125 H AST 68 H ALT 97 H Alkaline Phosphatase 165 H Creatine Kinase Total Protein 6.0 L Albumin 2.7 L - Diagnostic Findings Chest x-ray: image reviewed CT scan - chest: image reviewed Assessment and Plan Assessment: Significant radiographic findings consistent with severe emphysema, in a patient with minimal pulmonary complaints. History of long-standing tobacco use, from 43-44 years. Near-syncope, currently being evaluated by the primary service. Prior history of myocardial infarction. History of atrial fibrillation, status post pacemaker insertion. History of CAD, with previous catheterization and multiple stents. History of angina pectoris. History of CHF. Her history of myocardial infarction. Plan: Plan dated 06/20/2021. Currently, the patient appears to be relatively stable from the pulmonary standpoint. The patient should follow-up with us after being discharged. The patient will need a full pulmonary function test, to better classify his chronic lung disease. Currently he is on an excellent medication, which contains a long-acting beta agonist, inhaled corticosteroid, and long-acting muscarinic antagonist. We will continue to follow make recommendations where appropriate. Patient's on room air. Saturations are stable. The patient is encouraged to quit smoking. Additional recommendations are forthcoming. Time with Patient: Greater than 30
--- NOTE | 2021-06-20 16:34 | ECHOF ---
Referral Reason:LVF MEASUREMENTS -------- HEIGHT: 170.2 cm WEIGHT: 50.8 kg BP: RVIDd: 2.5 cm (< 3.3) IVSd: 0.7 cm (0.6 - 1.1) LVIDd: 5.2 cm (3.9 - 5.3) LVPWd: 1.0 cm (0.6 - 1.1) IVSs: 0.9 cm LVIDs: 3.9 cm LVPWs: 1.2 cm Ao Diam: 3.2 cm (2.0 - 3.7) AV Cusp: 1.8 cm (1.5 - 2.6) MV EXCURSION: 24.534 mm (> 18.000) MV EF SLOPE: 168 mm/s (70 - 150) EPSS: 1.8 cm MV E Milad: 0.57 m/s MV DecT: 128 ms MV A Milad: 0.82 m/s MV E/A Ratio: 0.70 RAP: 5.00 mmHg FINDINGS -------- Paced rhythm. This was a techncally difficult study with suboptimal views, , Lumason utilized for enhancement of im ages. The left ventricular size is normal. Left ventricular wall thickness is normal. Overall left vent ricular systolic function is moderate-severely impaired with, an EF between 30 - 35 %. Mid anterior LV wall motion is hypokinetic. Anterseptal Hypokinesis Lateral hypokinesis Inferior Hypokines is [place] Hypokinesis. The right ventricle is normal in size. The left atrial size is normal. The right atrial size is normal. 5.0mg OF Lumason UTLIZED: 2 OR MORE WALL SEGMENTS NOT VISUALIZED. The aortic valve is trileaflet, and appears structurally normal. No aortic stenosis or regurgitation. Mild mitral regurgitation is present. Mild tricuspid regurgitation present. Right ventricular systolic pressure is normal at < 35 mmHg. There is no pulmonic regurgitation present. Echo free space represents a pericardial fat pad. CONCLUSIONS -------- 1. This was a techncally difficult study with suboptimal views, , Lumason utilized for enhancement of images. 2. The left ventricular size is normal. 3. Left ventricular wall thickness is normal. 4. Overall left ventricular systolic function is moderate-severely impaired with, an EF between 30 - 35 %. 5. Mid anterior LV wall motion is hypokinetic. 6. Anterseptal Hypokinesis 7. Lateral hypokinesis 8. Inferior Hypokinesis 9. [place] Hypokinesis. 10. The right ventricle is normal in size. 11. The left atrial size is normal. 12. The right atrial size is normal. 13. 5.0mg OF Lumason UTLIZED: 2 OR MORE WALL SEGMENTS NOT VISUALIZED. 14. The aortic valve is trileaflet, and appears structurally normal. No aortic stenosis or regurgitat ion. 15. Mild mitral regurgitation is present. 16. Mild tricuspid regurgitation present. 17. Echo free space represents a pericardial fat pad. DOCTOR PODIATRIC MEDICINE: Lisa Culp RDCS
[2021-06-20] MEDS: AZITHROMYCIN 500 MG in SODIUM CHLORIDE 0.9% 250 ML IVPB SCH (18:40)
[2021-06-20] MEDS: ACETAMINOPHEN TAB 325 MG TAB PO PRN (23:00)
[2021-06-21] MEDS: MIDODRINE 5 MG TAB PO SCH ×3 (06:52→16:41)
[2021-06-21] MEDS: carvediloL 6.25 MG TAB PO SCH ×2 (06:52→16:41)
[2021-06-21 07:25] LABS: ALT 93 U/L (4-49); AST 64 U/L (17-59); African American GFR (CKD) >90 (>60 ml/min/1.73 sqM); Albumin 2.3 g/dL (3.5-5.0); Alkaline Phosphatase 150 U/L (38-126); Anion Gap 5 mmol/L; Blood Urea Nitrogen 10 mg/dL (9-20); Calcium 8.4 mg/dL (8.4-10.2); Carbon Dioxide 23 mmol/L (22-30); Chloride 106 mmol/L (98-107); Glucose 100 mg/dL (74-99); Non-African American GFR(CKD) >90 (>60 ml/min/1.73 sqM); Potassium 4.2 mmol/L (3.5-5.1); Sodium 134 mmol/L (137-145); Total Bilirubin 0.4 mg/dL (0.2-1.3); Total Protein 5.3 g/dL (6.3-8.2)
[2021-06-21] MEDS: ALBUTEROL HFA INHALER INHALATION PRN ×4 (07:29→20:03)
[2021-06-21 07:36] LABS: Basophils % (A) 0 %; Eosinophils # (A) 0.8 k/uL (0-0.7); Eosinophils % (A) 10 %; HCT 33.9 % (39.0-53.0); HGB 10.9 gm/dL (13.0-17.5); Hypochromasia Slight; Lymphocytes # (A) 1.2 k/uL (1.0-4.8); Lymphocytes % (A) 15 %; MCHC 32.2 g/dL (31.0-37.0); MCV 90.2 fL (80.0-100.0); Mean Platelet Volume 6.9; Monocytes # (A) 0.5 k/uL (0-1.0); Monocytes % (A) 7 %; Neutrophils % (A) 66 %; Platelet Count 507 k/uL (150-450); RBC 3.76 m/uL (4.30-5.90); RDW 13.2 % (11.5-15.5); WBC 7.6 k/uL (3.8-10.6)
[2021-06-21] MEDS: NICOTINE 14MG/24HR PATCH TRANSDERM SCH (09:26)
[2021-06-21] MEDS: ASPIRIN 81 MG PO SCH (09:27)
[2021-06-21] MEDS: ATORVASTATIN 40 MG TAB PO SCH (09:27)
[2021-06-21] MEDS ORDERED: guaiFENesin-DM 100-10MG/5ML 10 ML CUP PO PRN (09:34)
[2021-06-21] MEDS: ACETAMINOPHEN TAB 325 MG TAB PO PRN ×2 (09:41→21:21)
[2021-06-21] MEDS: SODIUM CHLORIDE 0.9% 1,000 ML IV SCH (09:46)
[2021-06-21] MEDS: NON FORMULARY DRUG (Buprenorphine Hcl/Naloxone Hcl [Suboxone 8 Mg-2 Mg Sl Film] 1 EACH Fil SUBLINGUAL SCH ×2 (10:05→15:41)
--- NOTE | 2021-06-21 10:56 | P.PN ---
Subjective Progress Note Date: 06/21/21 HISTORY OF PRESENT ILLNESS This is a 56-year-old male with past medical history of paroxysmal atrial fibri llation not on penitentiary anticoagulation, coronary artery disease with multiple stents placed [address] Arteaga from [place], heart failure with pacemaker/ICD placement at the time of his heart attacks 7 years ago, COPD, chronic tobacco and marijuana use. We have been asked to see him in consultation for and CAD. Patient gives history starting last Tuesday of lightheadedness when he bends over he stands up he starts feeling lightheaded like he is in a pass out. He checked his blood pressure was 82/46 he stopped taking his Coreg for about 3 days. He eventually called his equipment specialist's office and was told to go to the nearest hospital and he also waited to come in. Patient states that he has been losing weight and forcing himself to eat and he has no appetite. He denies having any fever or chills. He continues to smoke with history of 43 years at 2-3 packs per day currently trying to stop at half a pack per day with nicotine patch. Patient denies having any cough or sputum production. He does have some wheezing. He does not recall when he had a last stress test or echocardiogram but thinks it's at least a year ago. EKG normal sinus rhythm with previous myocardial infarction. WBC 10.7, hemoglobin 12.5, platelet count 596. D-dimer 5.01. Sodium 129, potassium 5.2, chloride 92, CO2 22, BUN 16 and creatinine 0.73. Blood sugar 122. AST 99, ALT 123, alkaline phosphatase 208. CK 25. Albumin 3.1. Troponins negative on 3 draws. CAT scan of the brain revealed left posterior temporal lobe infarct which appears old or subacute. CT angiogram of the chest revealed no evidence of pulmonary embolism. Extensive bullous pulmonary emphysema. Extensive honeycomb infiltrate in the mid and upper lung hendricks which is mostly no Current cardiac medications include aspirin 81 mg daily, atorvastatin 40 mg daily, Coreg 6.25 mg twice daily, Entresto 97 mg103 mg twice daily. 06/21: Patient was started on midodrine yesterday at 2.5 mg 3 times daily and blood pressure is improving, orthostatics negative. Patient is complaining of having a rough night last night and is complaining of cough, shortness of breath. He is followed by pulmonary medicine and on antibiotics for possible pneumonia. Noted that liver function tests remained elevated. No changes to current cardiac plan. Echocardiogram revealed EF of 30-35%, mild mitral regurgitation, mild tricuspid regurgitation. PHYSICAL EXAMINATION Gen: This is a thin cachectic appearing 56-year-old male. He is resting in bed appears to be comfortable and in no acute distress. VS: Afebrile, heart rate 93, blood pressure 111/65, pulse ox 92% on 2 L nasal cannula. HEENT: Head is atraumatic, normocephalic. Pupils equal, round. Sclerae is anicteric. NECK: Supple. No JVD. No lymphadenopathy. No thyromegaly. No carotid bruit LUNGS: Clear to auscultation. No wheezes or rhonchi. No intercostal retra ctions. HEART: Regular rate and rhythm. No murmur. ABDOMEN: Soft. Bowel sounds are present. No masses. No tenderness. EXTREMITIES: No pedal edema. No calf tenderness. NEUROLOGICAL: Patient is awake, alert and oriented x3. Cranial nerves 2 through 12 are grossly intact. 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 Nurse practitioner note has been reviewed, I agree with documented findings and plan of care. Patient was seen and examined. Objective - Vital Signs Vital signs: Vital Signs Temp 98.2 F 06/21/21 04:00 Pulse 81 06/21/21 04:00 Resp 16 06/21/21 04:00 BP 107/67 06/21/21 04:00 Pulse Ox 95 06/21/21 04:00 Intake & Output 06/20/21 06/21/21 06/21/21 18:59 06:59 18:59 Intake Total 478 240 Balance 478 240 Weight 50.802 kg Intake: Oral 478 240 Other: Voiding Method Toilet Toilet # Voids 1 1 - Labs CBC & Chem 7: 06/21/21 06:37 06/21/21 06:37 Labs: Abnormal Lab Results - Last 24 Hours (Table) 06/21/21 06/21/21 Range/Units 06:37 06:37 RBC 3.76 L (4.30-5.90) m/uL Hgb 10.9 L (13.0-17.5) gm/dL Hct 33.9 L (39.0-53.0) % Plt Count 507 H (150-450) k/uL Eosinophils # 0.8 H (0-0.7) k/uL Sodium 134 L (137-145) mmol/L Creatinine 0.49 L (0.66-1.25) mg/dL Glucose 100 H (74-99) mg/dL AST 64 H (17-59) U/L ALT 93 H (4-49) U/L Alkaline Phosphatase 150 H (38-126) U/L Total Protein 5.3 L (6.3-8.2) g/dL Albumin 2.3 L (3.5-5.0) g/dL Microbiology - Last 24 Hours (Table) 06/19/21 19:03 Blood Culture - Preliminary Blood No Growth after 24 hours 06/19/21 19:03 Blood Culture - Preliminary Blood No Growth after 24 hours
--- NOTE | 2021-06-21 11:28 | P.PN ---
Subjective Progress Note Date: 06/21/21 Principal diagnosis: Patient spiking fever today Still feels weak This 56-year-old male with past medical history of coronary artery disease status post multiple stents COPD hypertension admitted to the hospital for not feeding well for the last several days feeding weak feeling dizzy losing weight Review of systems and systems has been reviewed all negative and positive findings as per history of present illness Patient feels better today continues to be weak less short of breath less dizzy Constitutional: No acute distress, conversant, pleasant Eyes: Anicteric sclerae, moist conjunctiva, no lid-lag PERRLA ENMT: NC/AT Oropharynx clear, no erythema, exudates Neck: Supple, FROM, no masses, or JVD No carotid bruits No thyromegaly Lungs: Clear to auscultation Clear to percussion Normal respiratory effort, no accessory muscle use Cardiovascular: Heart regular in rate and rhythm, No murmurs, gallops, or rubs No peripheral edema Abdominal: Soft Nontender, no guarding, rebound or rigidity Abdomen moving with respiration Normoactive bowel sounds No hepatomegaly, No splenomegaly No palpable mass No abdominal wall hernia noted Skin: Normal temperature, tone, texture, turgor No induration No subcutaneous nodules No rash, lesions No ulcers Extremities: No digital cyanosis No clubbing Pedal pulses intact and symmetrical Radial pulses intact and symmetrical Normal gait and station No calf tenderness Psychiatric:Alert and oriented to person, place and time Appropriate affect Intact judgement Neuro: Muscles Strength 5/5 in all 4 extremities Sensation to light touch grossly present throughout Cranial nerves II-XII grossly intact No focal sensory deficits Spiking fever continue current IV antibiotics Suspected pneumonia we'll start the patient on IV antibiotics Pneumonia on the computed tomography scan pulmonology has been consulted Current artery disease with dizziness we'll check troponins and will consult cardiology Status post pacemaker and defibrillator placement Multiple medical problems Objective - Vital Signs Vital signs: Vital Signs Temp 102.1 F H 06/21/21 09:36 Pulse 97 06/21/21 09:36 Resp 20 06/21/21 09:36 BP 99/62 06/21/21 09:36 Pulse Ox 91 L 06/21/21 09:36 Intake & Output 06/20/21 06/21/21 06/21/21 18:59 06:59 18:59 Intake Total 478 240 240 Balance 478 240 240 Weight 50.802 kg Intake: Oral 478 240 240 Other: Voiding Method Toilet Toilet # Voids 1 1 - Labs CBC & Chem 7: 06/21/21 06:37 06/21/21 06:37 Labs: Abnormal Lab Results - Last 24 Hours (Table) 06/21/21 06/21/21 Range/Units 06:37 06:37 RBC 3.76 L (4.30-5.90) m/uL Hgb 10.9 L (13.0-17.5) gm/dL Hct 33.9 L (39.0-53.0) % Plt Count 507 H (150-450) k/uL Eosinophils # 0.8 H (0-0.7) k/uL Sodium 134 L (137-145) mmol/L Creatinine 0.49 L (0.66-1.25) mg/dL Glucose 100 H (74-99) mg/dL AST 64 H (17-59) U/L ALT 93 H (4-49) U/L Alkaline Phosphatase 150 H (38-126) U/L Total Protein 5.3 L (6.3-8.2) g/dL Albumin 2.3 L (3.5-5.0) g/dL Microbiology - Last 24 Hours (Table) 06/19/21 19:03 Blood Culture - Preliminary Blood No Growth after 24 hours 06/19/21 19:03 Blood Culture - Preliminary Blood No Growth after 24 hours
--- NOTE | 2021-06-21 15:33 | P.PN ---
Subjective Progress Note Date: 06/21/21 Principal diagnosis: COPD exacerbation, pneumonia. Pulmonary consult dated 06/20/2021. 56-year-old male who has a long-standing history of tobacco use, for many years, who presents with complaints of weakness, low blood pressure, and near syncope. He apparently was lightheaded. He apparently was having low blood pressures in the range of 70 systolic. The patient has apparently had significant weight loss over the last month or so. He apparently lost 15-20 pounds or so in the last month or we were asked to see the patient because of underlying COPD. The patient's chest x-ray showed significant COPD. He does have shortness of breath, although he tends to minimize his complaints. Shortness of breath occurs primarily with exertion. She denies any cough, phlegm production, hemoptysis, fever, chills, or chest pain. He's never seen a lung doctor other than see my partner here in the hospital, in the past. He's never been to our office, or had pulmonary function testing. He does continue to smoke cigarettes. He's been smoking probably for about 44 years. Currently, he has his oxygen off. He is getting saline at 20 mL an hour. His breathing medications is Trelegy, 1 puff a day, which is a combination long-acting beta agonist, inhaled corticosteroid, and long-acting muscarinic antagonist. White count 10.2, hemoglobin 12.2, hematocrit 36.6, and platelet count 591,000. D- dimer was 5.01. Sodium 132, potassium 4.8, chlorides 101, CO2 24, anion gap 7, BUN 9, creatinine 0.58. AST was 68, ALT 97, and total protein was 2.7. Troponins were negative 3. Urine was negative. Chest x-ray shows some coarse upper lobe infiltrates, and emphysematous changes. Brain CT shows a left posterior temporal lobe infarct which appears old or subacute. CT angiogram showed no evidence of pulmonary embolism, extensive bullous pulmonary emphysema, and extensive honeycomb infiltrates in the mid and upper lung hendricks. Progress note dated 06/21/2021. 56-year-old male, seen in consultation yesterday, in room 364. The patient was admitted with a diagnosis of COPD exacerbation. In addition, when he was initially admitted, he was found to have low blood pressure, and had an episode of near syncope. In retrospect, this likely related to underlying sepsis. He did have a temperature last night of 102.1. He continues on Zithromax and Rocephin. He is on saline at 75 mL an hour. He is also getting O2 2 L. He's feeling a bit better today than he did last night. He states he had a rough night last night. Laboratory data includes a white count of 7.6, he will 10.9, hematocrit 33.9, platelet count 507,000. Sodium 134, potassium 4.2, chlorides 106, CO2 23, anion gap 5, BUN 10, creatinine 0.49. Glucose is 100. AST is 64, and ALT is 93. Chest x-ray revealed upper lobe infiltrates. Objective - Vital Signs Vital signs: Vital Signs Temp 98.1 F 06/21/21 12:40 Pulse 92 06/21/21 12:40 Resp 16 06/21/21 12:40 BP 104/59 06/21/21 12:40 Pulse Ox 92 L 06/21/21 12:40 Intake & Output 06/20/21 06/21/21 06/21/21 18:59 06:59 18:59 Intake Total 478 240 240 Balance 478 240 240 Weight 50.802 kg Intake: Oral 478 240 240 Other: Voiding Method Toilet Toilet Toilet # Voids 1 1 - Exam No acute distress, oriented 3. No respiratory distress. No audible wheezing or use of accessory muscles. HEENT examination is grossly unremarkable. Neck supple. Full range of motion. No adenopathy thyromegaly or neck vein distention. Cardiovascular examination reveals regular rhythm rate. S1-S2 normal. No S3 or S4. No discernible murmur noted. Heart rate 92 bpm. Lungs reveal severely diminished breath sounds bilaterally. No wheezes. No crackles. Minimal rhonchi. 2 L saturation is 93%. Abdomen soft bowel sounds are heard. No masses or tenderness. Extremities are intact. No cyanosis clubbing or edema. Skin is without rash or lesion. Neurologic examination is brief but nonfocal. - Labs CBC & Chem 7: 06/21/21 06:37 06/21/21 06:37 Labs: Abnormal Lab Results - Last 24 Hours (Table) 06/21/21 06/21/21 Range/Units 06:37 06:37 RBC 3.76 L (4.30-5.90) m/uL Hgb 10.9 L (13.0-17.5) gm/dL Hct 33.9 L (39.0-53.0) % Plt Count 507 H (150-450) k/uL Eosinophils # 0.8 H (0-0.7) k/uL Sodium 134 L (137-145) mmol/L Creatinine 0.49 L (0.66-1.25) mg/dL Glucose 100 H (74-99) mg/dL AST 64 H (17-59) U/L ALT 93 H (4-49) U/L Alkaline Phosphatase 150 H (38-126) U/L Total Protein 5.3 L (6.3-8.2) g/dL Albumin 2.3 L (3.5-5.0) g/dL Microbiology - Last 24 Hours (Table) 06/19/21 19:03 Blood Culture - Preliminary Blood No Growth after 24 hours 06/19/21 19:03 Blood Culture - Preliminary Blood No Growth after 24 hours Assessment and Plan Assessment: COPD exacerbation complicated by probable pneumonia. History of long-standing tobacco use, from 43-44 years. Near-syncope, which may relate to underlying hypotension secondary to sepsis. Prior history of myocardial infarction. History of atrial fibrillation, status post pacemaker insertion. History of CAD, with previous catheterization and multiple stents. History of angina pectoris. History of CHF. Her history of myocardial infarction. Plan: Plan dated 06/20/2021. Currently, the patient appears to be relatively stable from the pulmonary standpoint. The patient should follow-up with us after being discharged. The patient will need a full pulmonary function test, to better classify his chronic lung disease. Currently he is on an excellent medication, which contains a long-acting beta agonist, inhaled corticosteroid, and long-acting muscarinic antagonist. We will continue to follow make recommendations where appropriate. Patient's on room air. Saturations are stable. The patient is encouraged to q uit smoking. Additional recommendations are forthcoming. Plan dated 06/21/2021. The patient remains on Zithromax and Rocephin, for suspected pneumonia. The patient had a elevated temperature last night of 102.1. He is currently on 2 L nasal cannula. He is getting saline at 75 mL an hour. Clinically, the patient looks a low bit more ill today that he actually looked yesterday. He continues on Symbicort, and updrafts. Additional recommendations and suggestions are forthcoming. A pro-calcitonin level is ordered. Prognosis is guarded. Time with Patient: Less than 30
[2021-06-21] MEDS: AZITHROMYCIN 500 MG in SODIUM CHLORIDE 0.9% 250 ML IVPB SCH (18:38)
[2021-06-22] MEDS: NON FORMULARY DRUG (Buprenorphine Hcl/Naloxone Hcl [Suboxone 8 Mg-2 Mg Sl Film] 1 EACH Fil SUBLINGUAL SCH ×4 (03:29→23:13)
[2021-06-22] MEDS: SODIUM CHLORIDE 0.9% 1,000 ML IV SCH ×2 (03:30→09:31)
[2021-06-22] MEDS: carvediloL 6.25 MG TAB PO SCH (05:36)
[2021-06-22] MEDS: MIDODRINE 5 MG TAB PO SCH ×3 (05:36→16:46)
[2021-06-22 08:26] LABS: Basophils % (A) 0 %; Eosinophils # (A) 0.7 k/uL (0-0.7); Eosinophils % (A) 7 %; HCT 34.2 % (39.0-53.0); HGB 11.1 gm/dL (13.0-17.5); Hypochromasia Slight; Lymphocytes # (A) 0.9 k/uL (1.0-4.8); Lymphocytes % (A) 9 %; MCH 29.2 pg (25.0-35.0); MCHC 32.4 g/dL (31.0-37.0); MCV 90.1 fL (80.0-100.0); Mean Platelet Volume 7.2; Monocytes # (A) 0.7 k/uL (0-1.0); Monocytes % (A) 7 %; Neutrophils # (A) 7.9 k/uL (1.3-7.7); Neutrophils % (A) 76 %; Platelet Count 522 k/uL (150-450); WBC 10.4 k/uL (3.8-10.6)
[2021-06-22 08:49] LABS: ALT 96 U/L (4-49); AST 60 U/L (17-59); African American GFR (CKD) >90 (>60 ml/min/1.73 sqM); Albumin 2.5 g/dL (3.5-5.0); Alkaline Phosphatase 158 U/L (38-126); Anion Gap 6 mmol/L; Blood Urea Nitrogen 12 mg/dL (9-20); Calcium 8.5 mg/dL (8.4-10.2); Carbon Dioxide 22 mmol/L (22-30); Chloride 104 mmol/L (98-107); Glucose 102 mg/dL (74-99); Non-African American GFR(CKD) >90 (>60 ml/min/1.73 sqM); Potassium 4.8 mmol/L (3.5-5.1); Sodium 132 mmol/L (137-145); Total Bilirubin 0.5 mg/dL (0.2-1.3); Total Protein 5.5 g/dL (6.3-8.2)
[2021-06-22] MEDS: ALBUTEROL HFA INHALER INHALATION PRN ×3 (08:56→16:38)
[2021-06-22] MEDS: ATORVASTATIN 40 MG TAB PO SCH (09:33)
[2021-06-22] MEDS: ASPIRIN 81 MG PO SCH (09:33)
[2021-06-22] MEDS: NICOTINE 14MG/24HR PATCH TRANSDERM SCH (09:33)
[2021-06-22] MEDS: ACETAMINOPHEN TAB 325 MG TAB PO PRN ×2 (09:33→19:45)
--- NOTE | 2021-06-22 10:48 | XR ---
EXAMINATION TYPE: XR chest 2V DATE OF EXAM: 06/22/2021 COMPARISON: 06/20/2021 TECHNIQUE: PA and lateral views submitted. HISTORY: Cough FINDINGS: Diffuse emphysematous changes with bilateral upper lobe areas of consolidation stable. Heart size nor mal. Cardiac device noted. No pneumothorax or pleural effusion. Findings are stable. Underlying neopl astic process not excluded. IMPRESSION: 1. COPD with bilateral upper lobe areas of infiltrate or consolidation stable. Correlate for pneumoni a otherwise consider neoplastic disease.
--- NOTE | 2021-06-22 13:14 | P.PN ---
Subjective Progress Note Date: 06/22/21 Principal diagnosis: Patient continues to have chills and weakness This 56-year-old male with past medical history of coronary artery disease status post multiple stents COPD hypertension admitted to the hospital for not feeding well for the last several days feeding weak feeling dizzy losing weight Review of systems and systems has been reviewed all negative and positive findings as per history of present illness Patient feels better today continues to be weak less short of breath less dizzy Constitutional: No acute distress, conversant, pleasant Eyes: Anicteric sclerae, moist conjunctiva, no lid-lag PERRLA ENMT: NC/AT Oropharynx clear, no erythema, exudates Neck: Supple, FROM, no masses, or JVD No carotid bruits No thyromegaly Lungs: Clear to auscultation Clear to percussion Normal respiratory effort, no accessory muscle use Cardiovascular: Heart regular in rate and rhythm, No murmurs, gallops, or rubs No peripheral edema Abdominal: Soft Nontender, no guarding, rebound or rigidity Abdomen moving with respiration Normoactive bowel sounds No hepatomegaly, No splenomegaly No palpable mass No abdominal wall hernia noted Skin: Normal temperature, tone, texture, turgor No induration No subcutaneous nodules No rash, lesions No ulcers Extremities: No digital cyanosis No clubbing Pedal pulses intact and symmetrical Radial pulses intact and symmetrical Normal gait and station No calf tenderness Psychiatric:Alert and oriented to person, place and time Appropriate affect Intact judgement Neuro: Muscles Strength 5/5 in all 4 extremities Sensation to light touch grossly present throughout Cranial nerves II-XII grossly intact No focal sensory deficits Spiking fever continue current IV antibiotics Suspected pneumonia we'll start the patient on IV antibiotics Pneumonia on the computed tomography scan pulmonology has been consulted Current artery disease with dizziness we'll check troponins and will consult cardiology Multiple medical problems Continues to have chills and weakness we'll continue current IV antibiotics pulmonology following Objective - Vital Signs Vital signs: Vital Signs Temp 98.1 F 06/22/21 12:00 Pulse 84 06/22/21 12:00 Resp 18 06/22/21 12:00 BP 92/55 06/22/21 12:00 Pulse Ox 90 L 06/22/21 12:00 Intake & Output 06/21/21 06/22/21 06/22/21 18:59 06:59 18:59 Intake Total 1080 375 890 Balance 1080 375 890 Intake: Intake, IV Titration 600 375 650 Amount Sodium Chloride 0.9% 1, 600 375 600 000 ml @ 75 mls/hr IV . [id number] MARIANGEL Rx#:[id number] cefTRIAXone 1 gm In 50 Sodium Chloride 0.9% 50 ml @ 100 mls/hr IVPB DAILY [facility] Rx#:[id number] Oral 480 240 Other: Voiding Method Toilet Toilet # Voids 2 - Labs CBC & Chem 7: 06/22/21 07:26 06/22/21 07:26 Labs: Abnormal Lab Results - Last 24 Hours (Table) 06/21/21 06/22/21 06/22/21 Range/Units 06:37 07:26 07:26 RBC 3.80 L (4.30-5.90) m/uL Hgb 11.1 L (13.0-17.5) gm/dL Hct 34.2 L (39.0-53.0) % Plt Count 522 H (150-450) k/uL Neutrophils # 7.9 H (1.3-7.7) k/uL Lymphocytes # 0.9 L (1.0-4.8) k/uL Sodium 132 L (137-145) mmol/L Creatinine 0.52 L (0.66-1.25) mg/dL Glucose 102 H (74-99) mg/dL AST 60 H (17-59) U/L ALT 96 H (4-49) U/L Alkaline Phosphatase 158 H (38-126) U/L Total Protein 5.5 L (6.3-8.2) g/dL Albumin 2.5 L (3.5-5.0) g/dL Procalcitonin 0.15 H (0.02-0.09) ng/mL Microbiology - Last 24 Hours (Table) 06/19/21 16:40 Gram Stain - Preliminary Sputum Sputum Culture - Preliminary 06/19/21 19:03 Blood Culture - Preliminary Blood No Growth after 48 hours 06/19/21 19:03 Blood Culture - Preliminary Blood No Growth after 48 hours
--- NOTE | 2021-06-22 14:04 | P.PN ---
Subjective Progress Note Date: 06/22/21 HISTORY OF PRESENT ILLNESS: This is a 56-year-old male with past medical history of paroxysmal atrial fibrillation not on fci anticoagulation, coronary artery disease with mul tiple stents placed [address] Arteaga from [place], heart failure with pacemaker/ICD placement at the time of his heart attacks 7 years ago, COPD, chronic tobacco and marijuana use. We have been asked to see him in consultation for and CAD. Patient gives history starting last Tuesday of lightheadedness when he bends over he stands up he starts feeling lightheaded like he is in a pass out. He checked his blood pressure was 82/46 he stopped taking his Coreg for about 3 days. He eventually called his division merchandise manager's office and was told to go to the nearest hospital and he also waited to come in. Patient states that he has been losing weight and forcing himself to eat and he has no appetite. He denies having any fever or chills. He continues to smoke with history of 43 years at 2-3 packs per day currently trying to stop at half a pack per day with nicotine patch. Patient denies having any cough or sputum production. He does have some wheezing. He does not recall when he had a last stress test or echocardiogram but thinks it's at least a year ago. EKG normal sinus rhythm with previous myocardial infarction. WBC 10.7, hemoglobin 12.5, platelet count 596. D-dimer 5.01. Sodium 129, potassium 5.2, chloride 92, CO2 22, BUN 16 and creatinine 0.73. Blood sugar 122. AST 99, ALT 123, alkaline phosphatase 208. CK 25. Albumin 3.1. Troponins negative on 3 draws. CAT scan of the brain revealed left posterior temporal lobe infarct which appears old or subacute. CT angiogram of the chest revealed no evidence of pulmonary embolism. Extensive bullous pulmonary emphysema. Extensive honeycomb infiltrate in the mid and upper lung hendricks which is mostly no Current cardiac medications include aspirin 81 mg daily, atorvastatin 40 mg daily, Coreg 6.25 mg twice daily, Entresto 97 mg103 mg twice daily. 06/21: Patient was started on midodrine yesterday at 2.5 mg 3 times daily and blood pressure is improving, orthostatics negative. Patient is complaining of having a rough night last night and is complaining of cough, shortness of breath. He is followed by pulmonary medicine and on antibiotics for possible pneumonia. Noted that liver function tests remained elevated. No changes to current cardiac plan. Echocardiogram revealed EF of 30-35%, mild mitral regurgitation, mild tricuspid regurgitation. 06/22/2021 Patient examined this morning at the bedside. Patients blood pressure remains on the low side although it is improved since admission. Most recent blood pressure 94/50. Patient denies any dizziness or lightheadedness. PHYSICAL EXAM: VITAL SIGNS: Reviewed. GENERAL: Well-developed in no acute distress. NECK: Supple. No JVD or thyromegaly LUNGS: Respirations even and unlabored. Lungs essentially clear to auscultation bilaterally. HEART: Regular rate and rhythm. S1 and S2 heard. EXTREMITIES: Normal range of motion. No clubbing or cyanosis. Peripheral pulses intact. 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 Patient may be discharged home from a cardiac standpoint and follow up with his primary division merchandise manager and his additional cardiac medications may be slowly re- incorporated by his primary division merchandise manager. We will sign off. Please reconsult if needed. Nurse practitioner note has been reviewed by physician. Signing provider agrees with the documented findings, assessment, and plan of care. Objective - Vital Signs Vital signs: Vital Signs Temp 98.1 F 06/22/21 12:00 Pulse 84 06/22/21 12:00 Resp 18 06/22/21 12:00 BP 92/55 06/22/21 12:00 Pulse Ox 90 L 06/22/21 12:00 Intake & Output 06/21/21 06/22/21 06/22/21 18:59 06:59 18:59 Intake Total 1080 375 890 Balance 1080 375 890 Intake: Intake, IV Titration 600 375 650 Amount Sodium Chloride 0.9% 1, 600 375 600 000 ml @ 75 mls/hr IV . [id number] [facility] Rx#:[id number] cefTRIAXone 1 gm In 50 Sodium Chloride 0.9% 50 ml @ 100 mls/hr IVPB DAILY [facility] Rx#:[id number] Oral 480 240 Other: Voiding Method Toilet Toilet # Voids 2 - Labs CBC & Chem 7: 06/22/21 07:26 06/22/21 07:26 Labs: Abnormal Lab Results - Last 24 Hours (Table) 06/21/21 06/22/21 06/22/21 Range/Units 06:37 07:26 07:26 RBC 3.80 L (4.30-5.90) m/uL Hgb 11.1 L (13.0-17.5) gm/dL Hct 34.2 L (39.0-53.0) % Plt Count 522 H (150-450) k/uL Neutrophils # 7.9 H (1.3-7.7) k/uL Lymphocytes # 0.9 L (1.0-4.8) k/uL Sodium 132 L (137-145) mmol/L Creatinine 0.52 L (0.66-1.25) mg/dL Glucose 102 H (74-99) mg/dL AST 60 H (17-59) U/L ALT 96 H (4-49) U/L Alkaline Phosphatase 158 H (38-126) U/L Total Protein 5.5 L (6.3-8.2) g/dL Albumin 2.5 L (3.5-5.0) g/dL Procalcitonin 0.15 H (0.02-0.09) ng/mL Microbiology - Last 24 Hours (Table) 06/19/21 16:40 Gram Stain - Preliminary Sputum Sputum Culture - Preliminary 06/19/21 19:03 Blood Culture - Preliminary Blood No Growth after 48 hours 06/19/21 19:03 Blood Culture - Preliminary Blood No Growth after 48 hours
--- NOTE | 2021-06-22 14:05 | CDI ---
Documentation Clarification Form Date: 06/22/2021 01:55:51 PM From: Jasmyn Puri RN, CCDS Admit Date: 06/19/2021 06:58:00 PM Patient Name: Yuan Li Visit Number: [id number] Discharge Date: ATTENTION: The Clinical Documentation Specialists (CDI) and [facility] Coding Staff appreciate your assistance in clarifying documentation. Please respond to the clarification below the line at the bottom and electronically sign. The CDI & [facility] Coding staff will review the response and follow-up if needed. Please note: Queries are made part of the Legal Health Record. If you have any questions, please contact the author of this message via ITS. Dr. Mariana Pretty The Registered Dietitian assessment on 06/20/21, indicates this patient meets criteria for malnutrition, severe. . Based on this information and the findings below, is there an additional diagnosis that is clinically appropriate for this patient? History/Risk Factors: Atrial Fibrillation, Coronary Artery Disease, Heart Failure, COPD, [place], Current smoker Clinical Indicators: 56-year-old male with poor oral intake. Patient states loss of appetite x3 weeks due to decreased taste. RD Consult Assessment: Moderate fat wasting to buccal pads and moderate muscle wasting to orbital pads and temporal regions. History of consuming small meals at home. Current BMI: 17.5 Insufficient energy intake: Yes Weight Loss: 15-20 lbs. Loss of subcutaneous fat: Yes Loss of muscle mass: Yes Treatment: Dietary Consult: Yes Supplements: General healthful diet, Ensure and magic cup Monitor PO Is there an additional diagnosis that is clinically appropriate for this patient? [ ] Mild Protein-Calorie Malnutrition [ ] Moderate Protein-Calorie Malnutrition [ ] Severe Protein-Calorie Malnutrition [ ] Other condition, please specify [ ] Unable to Determine (Template Last Revised: June 2020) Moderate Protein-Calorie Malnutrition MTDD
--- NOTE | 2021-06-22 14:32 | CDI ---
Documentation Clarification Form Date: 06/22/2021 02:06:21 PM From: Jasmyn Puri RN, CCDS Admit Date: 06/19/2021 06:58:00 PM Patient Name: Yuan Li Visit Number: [id number] Discharge Date: ATTENTION: The Clinical Documentation Specialists (CDI) and [facility] Coding Staff appreciate your assistance in clarifying documentation. Please respond to the clarification below the line at the bottom and electronically sign. The CDI & [facility] Coding staff will review the response and follow-up if needed. Please note: Queries are made part of the Legal Health Record. If you have any questions, please contact the author of this message via ITS. Dr. Mariana Pretty The patient presented with the following clinical indicators. Additional clarification regarding the etiology/cause of the clinical indicators is requested 06/21 Pulmonary progress notes: admit with COPD exacerbation, found to have low blood pressure and episode of near syncope. In retrospect, this likely related to underlying sepsis History/Risk Factors: Atrial Fibrillation, Coronary Artery Disease, Heart Failure, COPD, [place], Current smoker Clinical Indicators: 56-year-old male with complaints of weakness, near syncopal episode. He admit to decrease oral intake and 15 to 20 pound weight loss over last month. 06/19 Vital signs: 87/51 105 20 100.1 06/19 WBC: 10.7, Neutrophils 8.7, Sodium 129, and UA: negative, Covid not detected 06/19 CXR: shows some coarse upper lobe infiltrates, and emphysematous changes 06/19 Lactic acid: 1.6 06/19 Blood cultures: Pending Treatment: Telemetry Monitoring Rocephin 1 GMIVPB Daily 06/19 Azithromycin 500 MG IVPB Daily IV Bolus: p9NS 1,000 MLS/HR 06/19 then IV@ 75mls/hr. In your professional opinion, please clarify if these findings signify one of the following conditions: [ ] Sepsis POA [ ] Sepsis, Not POA [ ] Sepsis ruled out [ ] Severe Sepsis with organ failure [ ] Septic Shock [ ] SIRS, without underlying infectious process [ ] Other, please specify [ ] Unable to determine SIRS Criteria: 2 or more of the following may indicate SIRS -Temperature < 96.8F (36C) or > 101.0F (38.3C) -Heart Rate > 90 bpm -Respiratory Rate > 20 breaths/min or PaCO2 < 32 mmHg -White Blood Cell Count > 12,000 or < 4,000 cells/mm3 or > 10% bands (Template Last Reviewed: June 2020) Sepsis ruled out MTDD
--- NOTE | 2021-06-22 16:09 | P.PN ---
Subjective Progress Note Date: 06/22/21 Principal diagnosis: Shortness of breath On 06/22/2021 patient seen in follow-up on selective care unit, he is awake, she did have low-grade fevers overnight, he is coughing and producing some yellow colored sputum, he is currently on 2 L of oxygen pulse ox of 91-93%. His lung sounds reveal diminished breath sounds but no rhonchi or wheezing. He currently remains on a combination of azithromycin and Rocephin for possibility of pneumonia. However his Procalcitonin level was negative at 0.15. His echocardiogram showed moderately severe impaired EF of 30-35%, no aortic s tenosis or regurgitation, mild mitral regurg, mild tricuspid regurg, no evidence of pulmonary hypertension and right ventricular systolic pressure was normal at less than 35 minutes of mercury. Sputum culture was sent and Gram stain showed no PMNs, few gram-negative bacilli, few gram-positive bacilli, few gram-positive cocci. Blood cultures have been negative. Today's labs have been reviewed, w angelo blood cell count is 10.4, hemoglobin is 11.1, sodium is 132, dressing electrolytes and renal profile were unremarkable, urinalysis showed no evidence of urinary tract infection. Patient currently remains on Invanz, he is on inhaled bronchodilators with Symbicort and albuterol, he remains on Robitussin. He remains on IV hydration with 0.9 normal saline at a rate of 75 ML per hour, continues on midodrine at 2.5 mg 3 times daily, blood pressure has improved. Objective - Vital Signs Vital signs: Vital Signs Temp 98.1 F 06/22/21 12:00 Pulse 84 06/22/21 12:00 Resp 18 06/22/21 12:00 BP 92/55 06/22/21 12:00 Pulse Ox 90 L 06/22/21 12:00 Intake & Output 06/21/21 06/22/21 06/22/21 18:59 06:59 18:59 Intake Total 1080 375 890 Balance 1080 375 890 Intake: Intake, IV Titration 600 375 650 Amount Sodium Chloride 0.9% 1, 600 375 600 000 ml @ 75 mls/hr IV . [id number] [facility] Rx#:[id number] cefTRIAXone 1 gm In 50 Sodium Chloride 0.9% 50 ml @ 100 mls/hr IVPB DAILY [facility] Rx#:[id number] Oral 480 240 Other: Voiding Method Toilet Toilet # Voids 2 - Exam GENERAL EXAM: Alert, very pleasant, 56-year-old white male on 2 L oxygen and the pulse ox of 90-92% comfortable in no apparent distress. HEAD: Normocephalic/atraumatic. EYES: Normal reaction of pupils, equal size. Conjunctiva pink, sclera white. NOSE: Clear with pink turbinates. THROAT: No erythema or exudates. NECK: No masses, no JVD, no thyroid enlargement, no adenopathy. CHEST: No chest wall deformity. Symmetrical expansion. LUNGS: Equal air entry with no crackles, wheeze, rhonchi or dullness. CVS: Regular rate and rhythm, normal S1 and S2, no gallops, no murmurs, no rubs ABDOMEN: Soft, nontender. No hepatosplenomegaly, normal bowel sounds, no guarding or rigidity. EXTREMITIES: No clubbing, no edema, no cyanosis, 2+ pulses and upper and lower extremities. MUSCULOSKELETAL: Muscle strength and tone normal. SPINE: No scoliosis or deformity SKIN: No rashes CENTRAL NERVOUS SYSTEM: Alert and oriented -3. No focal deficits, tone is normal in all 4 extremities. PSYCHIATRIC: Alert and oriented -3. Appropriate affect. Intact judgment and insight. - Labs CBC & Chem 7: 06/22/21 07:26 06/22/21 07:26 Labs: Abnormal Lab Results - Last 24 Hours (Table) 06/21/21 06/22/21 06/22/21 Range/Units 06:37 07:26 07:26 RBC 3.80 L (4.30-5.90) m/uL Hgb 11.1 L (13.0-17.5) gm/dL Hct 34.2 L (39.0-53.0) % Plt Count 522 H (150-450) k/uL Neutrophils # 7.9 H (1.3-7.7) k/uL Lymphocytes # 0.9 L (1.0-4.8) k/uL Sodium 132 L (137-145) mmol/L Creatinine 0.52 L (0.66-1.25) mg/dL Glucose 102 H (74-99) mg/dL AST 60 H (17-59) U/L ALT 96 H (4-49) U/L Alkaline Phosphatase 158 H (38-126) U/L Total Protein 5.5 L (6.3-8.2) g/dL Albumin 2.5 L (3.5-5.0) g/dL Procalcitonin 0.15 H (0.02-0.09) ng/mL Microbiology - Last 24 Hours (Table) 06/19/21 16:40 Gram Stain - Preliminary Sputum Sputum Culture - Preliminary 06/19/21 19:03 Blood Culture - Preliminary Blood No Growth after 48 hours 06/19/21 19:03 Blood Culture - Preliminary Blood No Growth after 48 hours Assessment and Plan Plan: Assessment: #1. Acute exacerbation of COPD, complicated by possible pneumonia, or possible areas of scarring #2. History of long-standing tobacco use, carries a [id number] smoking history #3. Near syncopal episode possibly related to hypotension and dehydration #4. Prior history of myocardial infarction #5. History of paroxysmal atrial fibrillation status post pacemaker insertion #6. History of coronary artery disease with prior stenting #7. History of CHF with systolic dysfunction #8. History of COPD #9. Lightheadedness and dizziness related to hypotension, orthostatic hypotension secondary to dehydration #10. Weight loss of 15-20 pounds in one month #11. Ischemic cardiomyopathy with EF of 30-35% status post AICD placement #12. History of laparoscopic bilateral inguinal hernia repair #13. History of prescription narcotic abuse, currently on Suboxone #14. History of anxiety Plan: Continue current medical treatment Today's chest x-ray has been reviewed still showing bilateral upper lobe areas of infiltrates that could relate to possible lung scarring or pneumonia We'll place the patient on the schedule for bronchoscopy with BAL tomorrow on 06/23/[address] Hickman Keep on current antibiotics for now Continue nebulized bronchodilators We'll continue to follow his clinical course Nothing by mouth after midnight Hold Lovenox in the morning This was discussed with the patient and he is agreeable to proceed I performed a history & physical examination of the patient and discussed their management with my nurse practitioner, Kathie Sheffield. I reviewed the nurse practitioner's note and agree with the documented findings and plan of care. Lung sounds are positive for dim breath sounds throughout the lung hendricks. The findings and the impression was discussed with the patient. I attest to the documentation by the nurse practitioner. Time with Patient: Less than 30
[2021-06-22] MEDS: carvediloL 3.125 MG TAB PO SCH (16:46)
[2021-06-22] MEDS: AZITHROMYCIN 500 MG in SODIUM CHLORIDE 0.9% 250 ML IVPB SCH (18:17)
[2021-06-23] MEDS: SODIUM CHLORIDE 0.9% 1,000 ML IV SCH ×3 (03:58→22:59)
[2021-06-23] MEDS: ACETAMINOPHEN TAB 325 MG TAB PO PRN ×3 (04:21→19:54)
[2021-06-23] MEDS: MIDODRINE 5 MG TAB PO SCH ×3 (06:33→18:08)
[2021-06-23] MEDS: carvediloL 3.125 MG TAB PO SCH ×2 (06:33→18:08)
[2021-06-23 08:09] LABS: Basophils % (A) 0 %; Eosinophils # (A) 0.7 k/uL (0-0.7); Eosinophils % (A) 7 %; HCT 32.4 % (39.0-53.0); HGB 10.6 gm/dL (13.0-17.5); Hypochromasia Slight; Lymphocytes # (A) 0.8 k/uL (1.0-4.8); Lymphocytes % (A) 9 %; MCH 29.4 pg (25.0-35.0); MCHC 32.7 g/dL (31.0-37.0); MCV 89.9 fL (80.0-100.0); Mean Platelet Volume 7.1; Monocytes # (A) 0.8 k/uL (0-1.0); Monocytes % (A) 9 %; Neutrophils # (A) 7.1 k/uL (1.3-7.7); Neutrophils % (A) 74 %; Platelet Count 469 k/uL (150-450); RDW 12.9 % (11.5-15.5); WBC 9.6 k/uL (3.8-10.6)
[2021-06-23 08:21] LABS: ALT 85 U/L (4-49); AST 51 U/L (17-59); African American GFR (CKD) >90 (>60 ml/min/1.73 sqM); Albumin 2.3 g/dL (3.5-5.0); Alkaline Phosphatase 147 U/L (38-126); Anion Gap 4 mmol/L; Blood Urea Nitrogen 10 mg/dL (9-20); Calcium 8.5 mg/dL (8.4-10.2); Carbon Dioxide 28 mmol/L (22-30); Chloride 103 mmol/L (98-107); Glucose 106 mg/dL (74-99); Non-African American GFR(CKD) >90 (>60 ml/min/1.73 sqM); Potassium 4.7 mmol/L (3.5-5.1); Sodium 135 mmol/L (137-145); Total Bilirubin 0.4 mg/dL (0.2-1.3); Total Protein 5.2 g/dL (6.3-8.2)
[2021-06-23] MEDS ORDERED: ENOXAPARIN 30 MG/0.3 ML SYRINGE SQ SCH (09:00)
[2021-06-23] MEDS: ATORVASTATIN 40 MG TAB PO SCH (09:00)
[2021-06-23] MEDS: ASPIRIN 81 MG PO SCH (09:00)
[2021-06-23] MEDS: NON FORMULARY DRUG (Buprenorphine Hcl/Naloxone Hcl [Suboxone 8 Mg-2 Mg Sl Film] 1 EACH Fil SUBLINGUAL SCH ×3 (09:00→19:49)
[2021-06-23] MEDS: NICOTINE 14MG/24HR PATCH TRANSDERM SCH (09:05)
--- NOTE | 2021-06-23 09:37 | P.PN ---
Subjective Progress Note Date: 06/23/21 Principal diagnosis: Shortness of breath On 06/22/2021 patient seen in follow-up on selective care unit, he is awake, she did have low-grade fevers overnight, he is coughing and producing some yellow colored sputum, he is currently on 2 L of oxygen pulse ox of 91-93%. His lung sounds reveal diminished breath sounds but no rhonchi or wheezing. He currently remains on a combination of azithromycin and Rocephin for possibility of pneumonia. However his Procalcitonin level was negative at 0.15. His echocardiogram showed moderately severe impaired EF of 30-35%, no aortic s tenosis or regurgitation, mild mitral regurg, mild tricuspid regurg, no evidence of pulmonary hypertension and right ventricular systolic pressure was normal at less than 35 minutes of mercury. Sputum culture was sent and Gram stain showed no PMNs, few gram-negative bacilli, few gram-positive bacilli, few gram-positive cocci. Blood cultures have been negative. Today's labs have been reviewed, w angelo blood cell count is 10.4, hemoglobin is 11.1, sodium is 132, dressing electrolytes and renal profile were unremarkable, urinalysis showed no evidence of urinary tract infection. Patient currently remains on Invanz, he is on inhaled bronchodilators with Symbicort and albuterol, he remains on Robitussin. He remains on IV hydration with 0.9 normal saline at a rate of 75 ML per hour, continues on midodrine at 2.5 mg 3 times daily, blood pressure has improved. On 06/23/2021 patient seen in follow-up on selective care unit, patient was having febrile episodes again last night with a T-max of 102.9F, he remains on antibiotics with the combination of azithromycin and Rocephin, blood cultures and sputum cultures have been negative thus far, his lung sounds reveal some fine crackles at the right lower and left mid lung. No complaints of chest discomfort, no pleurisy, no hemoptysis, patient is afebrile this morning. No acute events, patient is nothing by mouth after midnight for bronchoscopy with BAL today. Objective - Vital Signs Vital signs: Vital Signs Temp 98.9 F 06/23/21 08:00 Pulse 91 06/23/21 08:00 Resp 20 06/23/21 08:00 BP 98/50 06/23/21 08:00 Pulse Ox 93 L 06/23/21 08:00 Intake & Output 06/22/21 06/23/21 06/23/21 18:59 06:59 18:59 Intake Total 2010 300 Balance 2010 300 Intake: Intake, IV Titration 1177 Amount Sodium Chloride 0.9% 1, 1127 000 ml @ 75 mls/hr IV . [id number] [facility] Rx#:[id number] cefTRIAXone 1 gm In 50 Sodium Chloride 0.9% 50 ml @ 100 mls/hr IVPB DAILY [facility] Rx#:[id number] Oral 834 300 Other: Voiding Method Toilet # Voids 1 - Exam GENERAL EXAM: Alert, very pleasant, 56-year-old white male on 2 L oxygen and the pulse ox of 90-92% comfortable in no apparent distress. HEAD: Normocephalic/atraumatic. EYES: Normal reaction of pupils, equal size. Conjunctiva pink, sclera white. NOSE: Clear with pink turbinates. THROAT: No erythema or exudates. NECK: No masses, no JVD, no thyroid enlargement, no adenopathy. CHEST: No chest wall deformity. Symmetrical expansion. LUNGS: Equal air entry with fine crackles at the right base and mild exp wheezes CVS: Regular rate and rhythm, normal S1 and S2, no gallops, no murmurs, no rubs ABDOMEN: Soft, nontender. No hepatosplenomegaly, normal bowel sounds, no guarding or rigidity. EXTREMITIES: No clubbing, no edema, no cyanosis, 2+ pulses and upper and lower extremities. MUSCULOSKELETAL: Muscle strength and tone normal. SPINE: No scoliosis or deformity SKIN: No rashes CENTRAL NERVOUS SYSTEM: Alert and oriented -3. No focal deficits, tone is normal in all 4 extremities. PSYCHIATRIC: Alert and oriented -3. Appropriate affect. Intact judgment and insight. - Labs CBC & Chem 7: 06/23/21 07:41 06/23/21 07:41 Labs: Abnormal Lab Results - Last 24 Hours (Table) 06/23/21 06/23/21 Range/Units 07:41 07:41 RBC 3.60 L (4.30-5.90) m/uL Hgb 10.6 L (13.0-17.5) gm/dL Hct 32.4 L (39.0-53.0) % Plt Count 469 H (150-450) k/uL Lymphocytes # 0.8 L (1.0-4.8) k/uL Sodium 135 L (137-145) mmol/L Creatinine 0.55 L (0.66-1.25) mg/dL Glucose 106 H (74-99) mg/dL ALT 85 H (4-49) U/L Alkaline Phosphatase 147 H (38-126) U/L Total Protein 5.2 L (6.3-8.2) g/dL Albumin 2.3 L (3.5-5.0) g/dL Microbiology - Last 24 Hours (Table) 06/19/21 19:03 Blood Culture - Preliminary Blood No Growth after 72 hours 06/19/21 19:03 Blood Culture - Preliminary Blood No Growth after 72 hours Assessment and Plan Plan: Assessment: #1. Acute exacerbation of COPD, complicated by possible pneumonia, or possible areas of scarring #2. History of long-standing tobacco use, carries a [id number] smoking history #3. Near syncopal episode possibly related to hypotension and dehydration #4. Prior history of myocardial infarction #5. History of paroxysmal atrial fibrillation status post pacemaker insertion #6. History of coronary artery disease with prior stenting #7. History of CHF with systolic dysfunction #8. History of COPD #9. Lightheadedness and dizziness related to hypotension, orthostatic hypotension secondary to dehydration #10. Weight loss of 15-20 pounds in one month #11. Ischemic cardiomyopathy with EF of 30-35% status post AICD placement #12. History of laparoscopic bilateral inguinal hernia repair #13. History of prescription narcotic abuse, currently on Suboxone #14. History of anxiety Plan: Continue current medical treatment continue same antibiotics Patient's chest x-ray showing bilateral upper lobe areas of infiltrates without improvement Patient continues to have episodes of fever despite antibiotics No growth on cultures so far Patient agrees to bronchoscopy with BAL today with Dr. Hickman May resume Lovenox after procedure I performed a history & physical examination of the patient and discussed their management with my nurse practitioner, Kathie Sheffield. I reviewed the nurse practitioner's note and agree with the documented findings and plan of care. Lung sounds are positive for dim breath sounds throughout the lung hendricks. The findings and the impression was discussed with the patient. I attest to the documentation by the nurse practitioner. Time with Patient: Less than 30
[2021-06-23] MEDS ORDERED: MIDAZOLAM 2 MG/2 ML VIAL ONE (12:31)
[2021-06-23] MEDS ORDERED: LIDOCAINE 1% INJ 10MG/ML (20 ML MDV) ONE (12:31)
[2021-06-23] MEDS ORDERED: PROPOFOL 10 MG/ML 20 ML VIAL IV ONE (12:31)
[2021-06-23] MEDS ORDERED: KETAMINE 10 MG/ML 20 ML VIAL ONE (12:31)
[2021-06-23] MEDS ORDERED: IV FLUID CONTINUATION 1,000 ML IV ONE (12:32)
[2021-06-23] MEDS ORDERED: LIDOCAINE 2% INJ 20 MG/ML INTRATRACH ONE (12:35)
[2021-06-23] MEDS ORDERED: SODIUM CHLORIDE 0.9% 1,000 ML IV ONE (13:42)
--- NOTE | 2021-06-23 13:55 | P.PN ---
Subjective Progress Note Date: 06/23/21 Principal diagnosis: CC: Lightheadedness and low blood pressure Patient says that he still having fevers. He states that he does have cough with some sputum production. He is complaining of weakness and decreased appetite Objective - Vital Signs Vital signs: Vital Signs Temp 100.2 F H 06/23/21 11:45 Pulse 101 H 06/23/21 13:36 Resp 16 06/23/21 13:36 BP 92/51 06/23/21 13:36 Pulse Ox 95 06/23/21 13:36 Intake & Output 06/22/21 06/23/21 06/23/21 18:59 06:59 18:59 Intake Total 2010 300 225 Balance 2010 300 225 Weight 50.802 kg Intake: IV 225 Intake, IV Titration 1177 Amount Sodium Chloride 0.9% 1, 1127 000 ml @ 75 mls/hr IV . 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 Psych - Calm and cooperative - Labs CBC & Chem 7: 06/23/21 07:41 06/23/21 07:41 Labs: Abnormal Lab Results - Last 24 Hours (Table) 06/23/21 06/23/21 Range/Units 07:41 07:41 RBC 3.60 L (4.30-5.90) m/uL Hgb 10.6 L (13.0-17.5) gm/dL Hct 32.4 L (39.0-53.0) % Plt Count 469 H (150-450) k/uL Lymphocytes # 0.8 L (1.0-4.8) k/uL Sodium 135 L (137-145) mmol/L Creatinine 0.55 L (0.66-1.25) mg/dL Glucose 106 H (74-99) mg/dL ALT 85 H (4-49) U/L Alkaline Phosphatase 147 H (38-126) U/L Total Protein 5.2 L (6.3-8.2) g/dL Albumin 2.3 L (3.5-5.0) g/dL Microbiology - Last 24 Hours (Table) 06/19/21 16:40 Gram Stain - Final Sputum Sputum Culture - Final 06/19/21 19:03 Blood Culture - Preliminary Blood No Growth after 72 hours 06/19/21 19:03 Blood Culture - Preliminary Blood No Growth after 72 hours Assessment and Plan Assessment: Fevers with weight loss could be due to pneumonia versus possible malignancy -Chest x-ray shows bilateral opacification -Patient is scheduled for bronchoscopy with BAL -Resume Rocephin and azithromycin -Pro calcitonin was negative -Patient continues to have fevers despite being on antibiotics -Sputum culture and blood cultures are negative -Patient has a long-standing history of tobacco abuse COPD not in exacerbation -Patient currently on 2 L nasal cannula and is satting well -Patient states that he has oxygen at home but does not use and -Resume inhalers Orthostatic hypotension secondary to dehydration -Patient started on midodrine -Blood pressure has improved -Resume gentle fluids Chronic systolic heart failure (ejection fraction is 30-35%) -Patient is on Coreg -Not on JOSHUA inhibitor secondary to hypotension -Per cardiology no additional medications and patient can follow with his primary telephone service representative -Patient appears hypovolemic -Hold interested due to low blood pressure Chronic conditions Coronary artery disease Paroxysmal atrial fibrillation status post pacemaker (patient not on anticoagu lation. Defer to primary telephone service representative) COPD Tobacco abuse -Stable resume home meds CODE STATUS:full code DVT prophylaxis: Resume Lovenox after bronchoscopy Anticipated length of stay : Depending on hospital course Anticipated discharge place: Home
--- NOTE | 2021-06-23 15:15 | OP ---
OPERATIVE REPORT OPERATIVE REPORT: Bronchoscopy and bronchoalveolar lavage of the right upper lobe and bronchoalveolar lavage of the left upper lobe. PREOPERATIVE DIAGNOSIS: Bilateral pneumonia involving right upper lobe and left upper lobe along with intermittent fever. POSTOPERATIVE DIAGNOSIS: Bilateral upper lobe pneumonia. ANESTHESIA USED: IV conscious sedation. Please refer to DIXONAC OPERATOR documentation. PROCEDURE DESCRIPTION: The patient was brought into the bronchoscopy suite, placed in a supine position. Monitors were applied, including pulse oximetry, and oxygen saturation was monitored continuously. Blood pressure was intermittently monitored and cardiac rhythm was continuously monitored. The patient had O2 applied via Ventimask. After adequate IV conscious sedation, 2 mL of lidocaine were instilled into the left naris, and the bronchoscope was advanced through the left naris down to the area of the vocal cords. The vocal cords were noted to be patent and basically normal. Lidocaine was instilled over the vocal cords, and the bronchoscope was then advanced further down to the trachea. Thorough examination was done of the trachea, jennifer, right upper lobe, right middle lobe, right lower lobe, left upper lobe lingula and left lower lobe. There were hardly any purulent secretions noted in the airways. Then the bronchoscope was wedged into the left upper lobe bronchus and bronchoalveolar lavage was done from the left upper lobe. Then I moved to the right upper lobe, and a separate lavage was done and collected separately. Right upper lobe lavage was also done. The procedure was well tolerated. No evidence of any complications. The fluid obtained from the right upper lobe and left upper lobe was sent for different diagnostic studies. Again, the procedure was well tolerated, and no complications. MMODL / IJN: [id number] /
[2021-06-23] MEDS: AZITHROMYCIN 500 MG in SODIUM CHLORIDE 0.9% 250 ML IVPB SCH (18:08)
[2021-06-24] MEDS: ACETAMINOPHEN TAB 325 MG TAB PO PRN (03:54)
[2021-06-24] MEDS: carvediloL 3.125 MG TAB PO SCH ×2 (06:21→16:51)
[2021-06-24] MEDS: MIDODRINE 5 MG TAB PO SCH ×3 (06:22→16:51)
[2021-06-24 07:23] LABS: Appearance,BF Clear
[2021-06-24 07:25] LABS: Appearance,BF Clear
[2021-06-24 08:10] LABS: Basophils % (A) 0 %; Eosinophils # (A) 0.9 k/uL (0-0.7); Eosinophils % (A) 8 %; HGB 10.7 gm/dL (13.0-17.5); Hypochromasia Slight; Lymphocytes # (A) 1.1 k/uL (1.0-4.8); Lymphocytes % (A) 10 %; MCH 29.3 pg (25.0-35.0); MCHC 32.5 g/dL (31.0-37.0); MCV 90.2 fL (80.0-100.0); Monocytes # (A) 0.7 k/uL (0-1.0); Monocytes % (A) 6 %; Neutrophils # (A) 8.1 k/uL (1.3-7.7); Neutrophils % (A) 75 %; Platelet Count 530 k/uL (150-450); RBC 3.66 m/uL (4.30-5.90); RDW 13.2 % (11.5-15.5); WBC 10.9 k/uL (3.8-10.6)
[2021-06-24] MEDS: ALBUTEROL HFA INHALER INHALATION PRN (08:21)
[2021-06-24 08:26] LABS: African American GFR (CKD) >90 (>60 ml/min/1.73 sqM); Anion Gap 6 mmol/L; Blood Urea Nitrogen 12 mg/dL (9-20); Calcium 8.7 mg/dL (8.4-10.2); Carbon Dioxide 27 mmol/L (22-30); Chloride 100 mmol/L (98-107); Glucose 124 mg/dL (74-99); Magnesium 1.8 mg/dL (1.6-2.3); Non-African American GFR(CKD) >90 (>60 ml/min/1.73 sqM); Potassium 4.4 mmol/L (3.5-5.1); Sodium 133 mmol/L (137-145)
[2021-06-24] MEDS ORDERED: IPRATROPIUM-ALBUTEROL 3 ML NEB INHALATION PRN (08:31)
[2021-06-24] MEDS: ATORVASTATIN 40 MG TAB PO SCH (08:39)
[2021-06-24] MEDS: ASPIRIN 81 MG PO SCH (08:39)
[2021-06-24] MEDS: methylPREDNISolone SOD SUCCI 40 MG/ML 1 ML VIAL IV SCH ×3 (08:40→23:05)
[2021-06-24] MEDS: NICOTINE 14MG/24HR PATCH TRANSDERM SCH (08:40)
[2021-06-24] MEDS: NON FORMULARY DRUG (Buprenorphine Hcl/Naloxone Hcl [Suboxone 8 Mg-2 Mg Sl Film] 1 EACH Fil SUBLINGUAL SCH ×3 (09:40→20:09)
--- NOTE | 2021-06-24 09:50 | P.PN ---
Subjective Progress Note Date: 06/24/21 Principal diagnosis: Shortness of breath On 06/22/2021 patient seen in follow-up on selective care unit, he is awake, she did have low-grade fevers overnight, he is coughing and producing some yellow colored sputum, he is currently on 2 L of oxygen pulse ox of 91-93%. His lung sounds reveal diminished breath sounds but no rhonchi or wheezing. He currently remains on a combination of azithromycin and Rocephin for possibility of pneumonia. However his Procalcitonin level was negative at 0.15. His echocardiogram showed moderately severe impaired EF of 30-35%, no aortic s tenosis or regurgitation, mild mitral regurg, mild tricuspid regurg, no evidence of pulmonary hypertension and right ventricular systolic pressure was normal at less than 35 minutes of mercury. Sputum culture was sent and Gram stain showed no PMNs, few gram-negative bacilli, few gram-positive bacilli, few gram-positive cocci. Blood cultures have been negative. Today's labs have been reviewed, w angelo blood cell count is 10.4, hemoglobin is 11.1, sodium is 132, dressing electrolytes and renal profile were unremarkable, urinalysis showed no evidence of urinary tract infection. Patient currently remains on Invanz, he is on inhaled bronchodilators with Symbicort and albuterol, he remains on Robitussin. He remains on IV hydration with 0.9 normal saline at a rate of 75 ML per hour, continues on midodrine at 2.5 mg 3 times daily, blood pressure has improved. On 06/23/2021 patient seen in follow-up on selective care unit, patient was having febrile episodes again last night with a T-max of 102.9F, he remains on antibiotics with the combination of azithromycin and Rocephin, blood cultures and sputum cultures have been negative thus far, his lung sounds reveal some fine crackles at the right lower and left mid lung. No complaints of chest discomfort, no pleurisy, no hemoptysis, patient is afebrile this morning. No acute events, patient is nothing by mouth after midnight for bronchoscopy with BAL today. On 06/24/2021 patient seen in follow-up on selective care unit, he status post bronchoscopy with BAL yesterday, brought washings were taken and sent separately from bilateral upper lobes, back washings are still pending at this time. Patient in the meantime remains on the, addition of azithromycin and Rocephin, he is on inhaled albuterol and Symbicort. Overnight he states he said increased shortness of breath, he was desaturating down to 79 on 3 L of oxygen with slightest exertion such as walking to the sink. On physical exam is quite tight and wheezy, we will switch his inhaled bronchodilators to nebulized bronchodilators and add IV steroids. Patient again had fever spikes overnight, with a T-max of 100.6F. Objective - Vital Signs Vital signs: Vital Signs Temp 98.7 F 06/24/21 08:00 Pulse 74 06/24/21 08:00 Resp 18 06/24/21 08:00 BP 111/72 06/24/21 08:00 Pulse Ox 94 L 06/24/21 08:22 Intake & Output 06/23/21 06/24/21 06/24/21 18:59 06:59 18:59 Intake Total 225 240 Balance 225 240 Weight 50.802 kg Intake: IV 225 Oral 240 Other: Voiding Method Toilet # Voids 2 1 - Exam GENERAL EXAM: Alert, very pleasant, 56-year-old white male on 4 L oxygen and the pulse ox of 91-94% comfortable in no apparent distress. HEAD: Normocephalic/atraumatic. EYES: Normal reaction of pupils, equal size. Conjunctiva pink, sclera white. NOSE: Clear with pink turbinates. THROAT: No erythema or exudates. NECK: No masses, no JVD, no thyroid enlargement, no adenopathy. CHEST: No chest wall deformity. Symmetrical expansion. LUNGS: Equal air entry with diffuse expiratory wheezes CVS: Regular rate and rhythm, normal S1 and S2, no gallops, no murmurs, no rubs ABDOMEN: Soft, nontender. No hepatosplenomegaly, normal bowel sounds, no guarding or rigidity. EXTREMITIES: No clubbing, no edema, no cyanosis, 2+ pulses and upper and lower extremities. MUSCULOSKELETAL: Muscle strength and tone normal. SPINE: No scoliosis or deformity SKIN: No rashes CENTRAL NERVOUS SYSTEM: Alert and oriented -3. No focal deficits, tone is normal in all 4 extremities. PSYCHIATRIC: Alert and oriented -3. Appropriate affect. Intact judgment and insight. - Labs CBC & Chem 7: 06/24/21 07:29 06/24/21 07:29 Labs: Abnormal Lab Results - Last 24 Hours (Table) 06/24/21 06/24/21 Range/Units 07:29 07:29 WBC 10.9 H (3.8-10.6) k/uL RBC 3.66 L (4.30-5.90) m/uL Hgb 10.7 L (13.0-17.5) gm/dL Hct 33.0 L (39.0-53.0) % Plt Count 530 H (150-450) k/uL Neutrophils # 8.1 H (1.3-7.7) k/uL Eosinophils # 0.9 H (0-0.7) k/uL Sodium 133 L (137-145) mmol/L Creatinine 0.52 L (0.66-1.25) mg/dL Glucose 124 H (74-99) mg/dL Microbiology - Last 24 Hours (Table) 06/23/21 12:41 Acid Fast Bacilli Culture - Preliminary Bronchial Washings - Right 06/23/21 12:41 Bronchial Washings Culture - Preliminary Bronchial Washings - Right 06/23/21 12:41 Acid Fast Bacilli Culture - Preliminary Bronchial Washings - Left 06/23/21 12:41 Bronchial Washings Culture - Preliminary Bronchial Washings - Left 06/23/21 12:41 Fungal Culture - Preliminary Bronchial Washings - Right 06/23/21 12:41 Fungal Culture - Preliminary Bronchial Washings - Left 06/19/21 19:03 Blood Culture - Preliminary Blood No Growth after 96 hours 06/19/21 19:03 Blood Culture - Preliminary Blood No Growth after 96 hours 06/19/21 16:40 Gram Stain - Final Sputum Sputum Culture - Final Assessment and Plan Plan: Assessment: #1. Acute exacerbation of COPD, complicated by possible pneumonia, patient is status post bronchoscopy with BAL on 06/23/2021, BAL cultures are still pending at this time, patient remains on a combination of azithromycin and Rocephin. Patient continues to have persistent fever. #2. History of long-standing tobacco use, carries a [id number] smoking history #3. Near syncopal episode possibly related to hypotension and dehydration #4. Prior history of myocardial infarction #5. History of paroxysmal atrial fibrillation status post pacemaker insertion #6. History of coronary artery disease with prior stenting #7. History of CHF with systolic dysfunction #8. History of COPD #9. Lightheadedness and dizziness related to hypotension, orthostatic hypotension secondary to dehydration #10. Weight loss of 15-20 pounds in one month #11. Ischemic cardiomyopathy with EF of 30-35% status post AICD placement #12. History of laparoscopic bilateral inguinal hernia repair #13. History of prescription narcotic abuse, currently on Suboxone #14. History of anxiety Plan: BAL cultures are still pending continue same antibiotics Patient COPD is active We will add IV Solu-Medrol, and switch his inhaled bronchodilators to nebulized bronchodilators Patient continues to have episodes of fever despite antibiotics We'll continue to follow his clinical course Follow-up chest x-ray tomorrow Resume Lovenox, continue GI prophylaxis I performed a history & physical examination of the patient and discussed their management with my nurse practitioner, Kathie Sheffield. I reviewed the nurse practitioner's note and agree with the documented findings and plan of care. Lung sounds are positive for dim breath sounds throughout the lung hendricks. The findings and the impression was discussed with the patient. I attest to the documentation by the nurse practitioner. Time with Patient: Less than 30
--- NOTE | 2021-06-24 11:16 | P.PN ---
Subjective Progress Note Date: 06/24/21 Principal diagnosis: CC: Lightheadedness and low blood pressure Patient states that overnight he was feeling short of breath. His oxygen requirements are increasing and now he is up to 6 L nasal cannula. Patient had a T-max of 100.6 last night. 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 Psych - Calm and cooperative - Labs CBC & Chem 7: 06/24/21 07:29 06/24/21 07:29 Labs: Abnormal Lab Results - Last 24 Hours (Table) 06/24/21 06/24/21 Range/Units 07:29 07:29 WBC 10.9 H (3.8-10.6) k/uL RBC 3.66 L (4.30-5.90) m/uL Hgb 10.7 L (13.0-17.5) gm/dL Hct 33.0 L (39.0-53.0) % Plt Count 530 H (150-450) k/uL Neutrophils # 8.1 H (1.3-7.7) k/uL Eosinophils # 0.9 H (0-0.7) k/uL Sodium 133 L (137-145) mmol/L Creatinine 0.52 L (0.66-1.25) mg/dL Glucose 124 H (74-99) mg/dL Microbiology - Last 24 Hours (Table) 06/23/21 12:41 Acid Fast Bacilli Culture - Preliminary Bronchial Washings - Right 06/23/21 12:41 Bronchial Washings Culture - Preliminary Bronchial Washings - Right 06/23/21 12:41 Acid Fast Bacilli Culture - Preliminary Bronchial Washings - Left 06/23/21 12:41 Bronchial Washings Culture - Preliminary Bronchial Washings - Left 06/23/21 12:41 Fungal Culture - Preliminary Bronchial Washings - Right 06/23/21 12:41 Fungal Culture - Preliminary Bronchial Washings - Left 06/19/21 19:03 Blood Culture - Preliminary Blood No Growth after 96 hours 06/19/21 19:03 Blood Culture - Preliminary Blood No Growth after 96 hours 06/19/21 16:40 Gram Stain - Final Sputum Sputum Culture - Final Assessment and Plan Assessment: Fevers with weight loss could be due to pneumonia versus possible malignancy -Patient had bronchoscopy on 06/23/2021 that showed bilateral upper lobe pneumonia and there are no signs of mass -Resume Rocephin and azithromycin -Patient continues to have fevers despite being on antibiotics so will consult infectious disease -Pro calcitonin was negative -Sputum culture and blood cultures are negative. Follow-up cultures from bronchoscopy -Patient has a long-standing history of tobacco abuse COPD not in exacerbation Acute hypoxic respiratory failure -Patient currently on 6 L nasal cannula and O2 requirements are increasing -Patient states that he has oxygen at home but does not use and -Resume inhalers -Resume steroids and bronchodilators -Repeat chest x-ray in a.m. tomorrow Orthostatic hypotension secondary to dehydration -Patient started on midodrine -Blood pressure has improved Chronic systolic heart failure (ejection fraction is 30-35%) -Patient is on Coreg -Not on JOSHUA inhibitor secondary to hypotension -Per cardiology no additional medications and patient can follow with his primary avian keeper -Patient appears hypovolemic so holding diuretics Chronic conditions Coronary artery disease Paroxysmal atrial fibrillation status post pacemaker (patient not on anticoagu lation. Defer to primary avian keeper) COPD Tobacco abuse -Stable resume home meds CODE STATUS:full code DVT prophylaxis: Lovenox Anticipated length of stay : Depending on hospital course Anticipated discharge place: Home
[2021-06-24] MEDS: IPRATROPIUM-ALBUTEROL 3 ML NEB INHALATION SCH ×3 (12:04→19:24)
[2021-06-24] MEDS: IOPAMIDOL CONTRAST (ORAL USE) VIAL PO PRN ×2 (14:45→15:21)
[2021-06-24] MEDS: PIPERACILLIN-TAZOBACTAM 3.375 GM in SODIUM CHLORIDE 0.9% 100 ML IVPB SCH ×2 (16:52→23:04)
--- NOTE | 2021-06-24 17:42 | CT ---
EXAMINATION TYPE: CT abdomen pelvis w con DATE OF EXAM: 06/24/2021 COMPARISON: Unexplained weight loss HISTORY: Unexplained weight loss. CT DLP: 584.3 mGycm Automated exposure control for dose reduction was used. TECHNIQUE: Helical acquisition of images was performed from the lung bases through the pelvis. CONTRAST: Performed with Oral Contrast and with IV Contrast, patient injected with 100 mL of Isovue 300. FINDINGS: No definite hepatic focal lesion. The gallbladder is markedly contracted likely due to incomplete fas ting. Unremarkable spleen. Small pancreas. Unremarkable adrenals and kidneys. Scattered arterial athe rosclerotic calcifications with infrarenal abdominal aneurysm measuring 3 cm. Aneurysmal dilatation o f the left common iliac artery is also noted measuring 2.8 cm. Unremarkable urinary bladder. No prost atic enlargement. The stomach is distended likely with food and oral contrast. Unremarkable duodenum and small bowel. M oderate fecal loading of the colon. Mild wall thickening of the cecum surrounding the ileocecal junct ion, possibly artifactual. Small underlying lesion cannot be excluded at that location. Normal append ix. No pathologically enlarged abdominal or pelvic lymph nodes. No sizable ascites. Small pericardial effusion. Severe COPD changes are seen in the lung bases with apparent bilateral ba pb pulmonary infiltration, please correlate clinically for pneumonia or aspiration. Bilateral L5 par s interarticularis break with grade 2 anterolisthesis of L5 over S1. No aggressive bone lesion. IMPRESSION: 1. Questionable wall thickening in the cecum surrounding the ileocecal junction, possibly artifactual however underlying lesion can't be excluded, please correlate with coloscopy results. 2. 3 cm infrarenal abdominal aortic aneurysm with left common iliac artery aneurysm measuring up to 2 .8 cm. 3. Severe COPD. Bilateral basal pulmonary infiltration which could be related to recurrent aspiration or pneumonia, please correlate clinically. Other incidental findings as detailed above.
[2021-06-24] MEDS: BUDESONIDE 1 MG/2 ML NEBU INHALATION SCH (19:24)
[2021-06-24] MEDS: FORMOTEROL FUMARATE 20 MCG/2 ML NEBU INHALATION SCH (19:24)
[2021-06-24 20:12] LABS: Glucose,Whole Blood 271 mg/dL (75-99)
[2021-06-24] MEDS: INSULIN ASPART (NovoLOG) 100 UNIT/ML VIAL SQ SCH (20:21)
--- NOTE | 2021-06-24 23:10 | P.CONS ---
History of Present Illness - Reason for Consult Consult date: 06/24/21 Persistent fever Requesting physician: Karen Jung - Chief Complaint Shortness of breath x few days - History of Present Illness Patient is a 56-year male presenting to the hospital about a week ago on 06/19/2021 for evaluation of weakness and near syncopal episode patient complaining of feeling lightheaded and noticed to have a low blood pressure, patient on presentation to the hospital did have a fever 100.0 degrees formulae did and the patient has been running a fever on a daily basis for the last 5 days patient work-up during this hospital stay he did have mildly elevated white count of 10.7 with a left shift on admission subsequent white count has improved kidney function has been normal liver exams are mildly elevated procalcitonin was mildly elevated urine was negative fitch PCR was negative patient did have a CT angiogram of the chest negative for PE however did shows extensive pulmonary emphysema with extensive honeycomb pattern throughout the lungs with coalescent areas in the mid and upper lung hendricks patient is status post [facility] hoscopy completed yesterday patient has been treated with Rocephin and Zithromax with persistent fever infectious disease was consulted for further management of antibiotic therapy Review of Systems CONSTITUTIONAL: Positive for weakness. Fever EYES: No complaint. ENT:No complaint. RESPIRATORY:As per history of present illness CARDIOVASCULAR: No complaint. GENITOURINARY: No complaint. GASTROINTESTINAL: No complaint. MUSCULOSKELETAL: No complaint. INTEGUMENTARY: No complaint. PSYCHOLOGICAL: No complaint. ENDOCRINE: No complaint. NEUROLOGIC: No complaint. 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, takes saboxone Last Myocardial Infarction Date:: 2008 History of Any Multi-Drug Resistant Organisms: None Reported Past Surgical History: Heart Catheterization, Heart Catheterization With Stent, Hernia Repair, Pacemaker Additional Past Surgical History / Comment(s): CARPAL TUNNEL BILATERAL, Heart cath 9 times with 5 stents Past Anesthesia/Blood Transfusion Reactions: No Reported Reaction Date of Last Stent Placement:: 2010 Type of Cardiac Device: Permanent Pacemaker Device Placement Date:: 2008 Past Psychological History: No Psychological Hx Reported Smoking Status: Current every day smoker Past Alcohol Use History: None Reported Additional Past Alcohol Use History / Comment(s): half pack a day smoker Past Drug Use History: Marijuana Additional Drug Use History / Comment(s): Marijuana at night 6 nights a week to sleep - Past Family History Father Family Medical History: No Reported History Mother Family Medical History: Myocardial Infarction ([place]) Medications and Allergies Home Medications Medication Instructions Recorded Confirmed Type Buprenorphine HCl/Naloxone HCl 1 film SL TID 03/13/15 06/19/21 History [Suboxone 8 mg-2 mg Sl Film] Aspirin [Adult Low Dose Aspirin EC] 81 tab PO DAILY 03/28/17 06/19/21 History Albuterol Inhaler [Ventolin Hfa 2 puff INHALATION RT-QID PRN 06/19/21 06/19/21 History Inhaler] Atorvastatin [Lipitor] 40 mg PO DAILY 06/19/21 06/19/21 History Budesonide/Formoterol Fumarate 2 puff INHALATION RT-BID PRN 06/19/21 06/19/21 History [Symbicort 160-4.5 Mcg Inhaler] Carvedilol [Coreg] 6.25 mg PO BID 06/19/21 06/19/21 History Fluticasone/Umeclidin/Vilanter 1 puff INHALATION RT-DAILY PRN 06/19/21 06/19/21 History [Trelegy Ellipta 200-62.5-25] Nicotine 21Mg/24Hr Patch [Habitrol] 1 patch TRANSDERM DAILY PRN 06/19/2106/02 History Sacubitril/Valsartan [Entresto 97 1 tab PO BID 06/19/21 06/19/21 History mg-103 mg Tablet] Allergies Allergy/AdvReac Type Severity Reaction Status Date / Time clopidogrel bisulfate Allergy Dyspnea,HIV Verified 06/19/21 16:32 [From Plavix] ES,SWELLING Physical Exam Vitals: Vital Signs Temp Pulse Resp BP BP Pulse Ox 06/24/21 12:00 98 F 70 16 109/54 93 L 06/24/21 08:22 94 L 06/24/21 08:00 98.7 F 74 18 111/72 91 L 06/24/21 04:45 98.8 F 06/24/21 04:05 20 92 L 06/24/21 04:00 100.6 F H 102 H 22 100/61 88 L 06/24/21 00:00 99 F 87 17 97/54 93 L 06/23/21 20:45 100.4 F H 06/23/21 20:00 102.9 F H 107 H 18 113/71 90 L 06/23/21 16:00 98.2 F 74 16 109/65 93 L 06/23/21 13:36 101 H 16 92/51 95 Intake and Output 06/23/21 06/24/21 06/24/21 22:59 06:59 14:59 Intake Total 240 Balance 240 Intake: Oral 240 Other: Voiding Method Toilet Toilet # Voids 1 1 GENERAL DESCRIPTION: Middle-aged male lying in bed, no distress. No tachypnea or accessory muscle of respiration use. HEENT: Shows Pallor , no scleral icterus. Oral mucous membrane is dry. No pharyngeal erythema or thrush NECK: Trachea central, no thyromegaly. LUNGS: Unlabored breathing. Decreased intensity of breath sounds. No wheeze or crackle. HEART: S1, S2, regular rate and rhythm. No loud murmur ABDOMEN: Soft, no tenderness , guarding or rigidity, no organomegaly EXTREMITIES: No edema of feet. SKIN: No rash, no masses palpable. NEUROLOGICAL: The patient is awake, alert, oriented x3, mood and affect normal. Results CBC & Chem 7: 06/24/21 07:29 06/24/21 07:29 Labs: Abnormal Lab Results - Last 24 Hours (Table) 06/24/21 06/24/21 Range/Units 07:29 07:29 WBC 10.9 H (3.8-10.6) k/uL RBC 3.66 L (4.30-5.90) m/uL Hgb 10.7 L (13.0-17.5) gm/dL Hct 33.0 L (39.0-53.0) % Plt Count 530 H (150-450) k/uL Neutrophils # 8.1 H (1.3-7.7) k/uL Eosinophils # 0.9 H (0-0.7) k/uL Sodium 133 L (137-145) mmol/L Creatinine 0.52 L (0.66-1.25) mg/dL Glucose 124 H (74-99) mg/dL Microbiology - Last 24 Hours (Table) 06/23/21 12:41 Acid Fast Bacilli Culture - Preliminary Bronchial Washings - Right 06/23/21 12:41 Bronchial Washings Culture - Preliminary Bronchial Washings - Right 06/23/21 12:41 Acid Fast Bacilli Culture - Preliminary Bronchial Washings - Left 06/23/21 12:41 Bronchial Washings Culture - Preliminary Bronchial Washings - Left 06/23/21 12:41 Fungal Culture - Preliminary Bronchial Washings - Right 06/23/21 12:41 Fungal Culture - Preliminary Bronchial Washings - Left 06/19/21 19:03 Blood Culture - Preliminary Blood No Growth after 96 hours 06/19/21 19:03 Blood Culture - Preliminary Blood No Growth after 96 hours 06/19/21 16:40 Gram Stain - Final Sputum Sputum Culture - Final Assessment and Plan (1) Febrile illness, acute Current Visit: Yes Status: Acute Code(s): R50.9 - FEVER, UNSPECIFIED SNOMED Code(s): 308166293 Plan: 1-Patient with a fever source is likely pneumonia in this patient did have a extensive emphysema and abnormality seen on the CT angiogram of the chest this patient who is s/p bronchoscopy with the cultures currently pending with a fever not responding to Rocephin and Zithromax will need to cover for more resistant gram-negative pathogen 2-discontinue Rocephin and Zithromax 3-start the patient on Zosyn 3.375 g every 8 hours We will follow on clinical condition and cultures to further adjust medication if needed Thank you for this consultation will follow this patient along with you Time with Patient: Greater than 30
[2021-06-25 06:09] LABS: Glucose,Whole Blood 208 mg/dL (75-99)
[2021-06-25] MEDS: MIDODRINE 5 MG TAB PO SCH ×3 (06:10→16:55)
[2021-06-25] MEDS: carvediloL 3.125 MG TAB PO SCH ×2 (06:10→16:55)
[2021-06-25] MEDS: INSULIN ASPART (NovoLOG) 100 UNIT/ML VIAL SQ SCH ×4 (06:11→20:17)
[2021-06-25 07:57] LABS: Basophils % (A) 0 %; Eosinophils % (A) 0 %; HCT 34.1 % (39.0-53.0); HGB 11.1 gm/dL (13.0-17.5); Hypochromasia Slight; Lymphocytes % (A) 9 %; MCH 29.1 pg (25.0-35.0); MCHC 32.6 g/dL (31.0-37.0); MCV 89.2 fL (80.0-100.0); Monocytes # (A) 0.3 k/uL (0-1.0); Monocytes % (A) 3 %; Neutrophils # (A) 9.3 k/uL (1.3-7.7); Neutrophils % (A) 87 %; Platelet Count 617 k/uL (150-450); RBC 3.82 m/uL (4.30-5.90); RDW 13.3 % (11.5-15.5); WBC 10.7 k/uL (3.8-10.6)
[2021-06-25] MEDS: BUDESONIDE 1 MG/2 ML NEBU INHALATION SCH ×2 (08:04→19:35)
[2021-06-25] MEDS: IPRATROPIUM-ALBUTEROL 3 ML NEB INHALATION SCH ×4 (08:04→19:36)
[2021-06-25] MEDS: FORMOTEROL FUMARATE 20 MCG/2 ML NEBU INHALATION SCH ×2 (08:04→19:35)
--- NOTE | 2021-06-25 08:15 | XR ---
EXAMINATION TYPE: XR chest 2V DATE OF EXAM: 06/25/2021 COMPARISON: Chest x-ray 06/22/2021 HISTORY: Shortness of breath TECHNIQUE: Frontal and lateral views of the chest are obtained. FINDINGS: Bilateral airspace disease is again noted. Interstitium is increased. There is underlying emphysema. No evident pneumothorax or pleural effusion. Generators present in the left pectoral regio n, there is a lead in the right ventricle. IMPRESSION: Correlate for pneumonia, there is underlying emphysema him a follow-up recommended
[2021-06-25 08:48] LABS: African American GFR (CKD) >90 (>60 ml/min/1.73 sqM); Anion Gap 7 mmol/L; Blood Urea Nitrogen 19 mg/dL (9-20); Calcium 9.3 mg/dL (8.4-10.2); Carbon Dioxide 27 mmol/L (22-30); Chloride 104 mmol/L (98-107); Glucose 167 mg/dL (74-99); Non-African American GFR(CKD) >90 (>60 ml/min/1.73 sqM); Sodium 138 mmol/L (137-145)
[2021-06-25] MEDS: NON FORMULARY DRUG (Buprenorphine Hcl/Naloxone Hcl [Suboxone 8 Mg-2 Mg Sl Film] 1 EACH Fil SUBLINGUAL SCH ×2 (09:08→16:50)
[2021-06-25] MEDS: ENOXAPARIN 40 MG/0.4 ML SYRINGE SQ SCH (09:13)
[2021-06-25] MEDS: NICOTINE 14MG/24HR PATCH TRANSDERM SCH (09:13)
[2021-06-25] MEDS: PIPERACILLIN-TAZOBACTAM 3.375 GM in SODIUM CHLORIDE 0.9% 100 ML IVPB SCH ×3 (09:13→23:03)
[2021-06-25] MEDS: ATORVASTATIN 40 MG TAB PO SCH (09:14)
[2021-06-25] MEDS: ASPIRIN 81 MG PO SCH (09:14)
[2021-06-25] MEDS: methylPREDNISolone SOD SUCCI 40 MG/ML 1 ML VIAL IV SCH ×3 (09:14→23:04)
--- NOTE | 2021-06-25 09:15 | P.PN ---
Subjective Progress Note Date: 06/25/21 Principal diagnosis: Shortness of breath On 06/22/2021 patient seen in follow-up on selective care unit, he is awake, she did have low-grade fevers overnight, he is coughing and producing some yellow colored sputum, he is currently on 2 L of oxygen pulse ox of 91-93%. His lung sounds reveal diminished breath sounds but no rhonchi or wheezing. He currently remains on a combination of azithromycin and Rocephin for possibility of pneumonia. However his Procalcitonin level was negative at 0.15. His echocardiogram showed moderately severe impaired EF of 30-35%, no aortic s tenosis or regurgitation, mild mitral regurg, mild tricuspid regurg, no evidence of pulmonary hypertension and right ventricular systolic pressure was normal at less than 35 minutes of mercury. Sputum culture was sent and Gram stain showed no PMNs, few gram-negative bacilli, few gram-positive bacilli, few gram-positive cocci. Blood cultures have been negative. Today's labs have been reviewed, w angelo blood cell count is 10.4, hemoglobin is 11.1, sodium is 132, dressing electrolytes and renal profile were unremarkable, urinalysis showed no evidence of urinary tract infection. Patient currently remains on Invanz, he is on inhaled bronchodilators with Symbicort and albuterol, he remains on Robitussin. He remains on IV hydration with 0.9 normal saline at a rate of 75 ML per hour, continues on midodrine at 2.5 mg 3 times daily, blood pressure has improved. On 06/23/2021 patient seen in follow-up on selective care unit, patient was having febrile episodes again last night with a T-max of 102.9F, he remains on antibiotics with the combination of azithromycin and Rocephin, blood cultures and sputum cultures have been negative thus far, his lung sounds reveal some fine crackles at the right lower and left mid lung. No complaints of chest discomfort, no pleurisy, no hemoptysis, patient is afebrile this morning. No acute events, patient is nothing by mouth after midnight for bronchoscopy with BAL today. On 06/24/2021 patient seen in follow-up on selective care unit, he status post bronchoscopy with BAL yesterday, brought washings were taken and sent separately from bilateral upper lobes, back washings are still pending at this time. Patient in the meantime remains on the, addition of azithromycin and Rocephin, he is on inhaled albuterol and Symbicort. Overnight he states he said increased shortness of breath, he was desaturating down to 79 on 3 L of oxygen with slightest exertion such as walking to the sink. On physical exam is quite tight and wheezy, we will switch his inhaled bronchodilators to nebulized bronchodilators and add IV steroids. Patient again had fever spikes overnight, with a T-max of 100.6F. On 06/25/2021 patient seen in follow-up on selective care unit, he states his breathing is improving, still bronchospastic on physical exam, he is currently on 4 L of oxygen his pulse ox is 91-92%, afebrile overnight, blood pressure has been stable, he is status post bronchoscopy with bronchoalveolar lavage, and BAL cultures are still pending. Patient continues on antibiotics, currently has been transitioned to Zosyn, remains on IV steroids, breathing treatments. Follow-up chest x-ray today showing bilateral airspace disease, and increased in terstitium with underlying emphysema. No evident pneumothorax or pleural effusion. Patient states he is not coughing anything up, no complaints of chest discomfort, nausea vomiting or diarrhea, his labs have been reviewed his white blood cell count is 10.7, hemoglobin is 11.1, electrolytes are within normal limits, BUN is 19 creatinine 0.43. Objective - Vital Signs Vital signs: Vital Signs Temp 97.4 F L 06/25/21 04:00 Pulse 92 06/25/21 08:33 Resp 16 06/25/21 04:00 BP 131/80 06/25/21 04:00 Pulse Ox 92 L 06/25/21 04:00 Intake & Output 06/24/21 06/25/21 06/25/21 18:59 06:59 18:59 Intake Total 240 Balance 240 Intake: Oral 240 Other: Voiding Method Toilet # Voids 2 1 - Exam GENERAL EXAM: Alert, very pleasant, 56-year-old white male on 4 L oxygen and the pulse ox of 91-94% comfortable in no apparent distress. HEAD: Normocephalic/atraumatic. EYES: Normal reaction of pupils, equal size. Conjunctiva pink, sclera white. NOSE: Clear with pink turbinates. THROAT: No erythema or exudates. NECK: No masses, no JVD, no thyroid enlargement, no adenopathy. CHEST: No chest wall deformity. Symmetrical expansion. LUNGS: Equal air entry with diffuse expiratory wheezes CVS: Regular rate and rhythm, normal S1 and S2, no gallops, no murmurs, no rubs ABDOMEN: Soft, nontender. No hepatosplenomegaly, normal bowel sounds, no guarding or rigidity. EXTREMITIES: No clubbing, no edema, no cyanosis, 2+ pulses and upper and lower extremities. MUSCULOSKELETAL: Muscle strength and tone normal. SPINE: No scoliosis or deformity SKIN: No rashes CENTRAL NERVOUS SYSTEM: Alert and oriented -3. No focal deficits, tone is normal in all 4 extremities. PSYCHIATRIC: Alert and oriented -3. Appropriate affect. Intact judgment and insight. - Labs CBC & Chem 7: 06/25/21 07:26 06/25/21 07:26 Labs: Abnormal Lab Results - Last 24 Hours (Table) 06/24/21 06/25/21 06/25/21 Range/Units 19:59 06:04 07:26 WBC 10.7 H (3.8-10.6) k/uL RBC 3.82 L (4.30-5.90) m/uL Hgb 11.1 L (13.0-17.5) gm/dL Hct 34.1 L (39.0-53.0) % Plt Count 617 H (150-450) k/uL Neutrophils # 9.3 H (1.3-7.7) k/uL Creatinine (0.66-1.25) mg/dL Glucose (74-99) mg/dL POC Glucose (mg/dL) 271 H 208 H (75-99) mg/dL 06/25/21 Range/Units 07:26 WBC (3.8-10.6) k/uL RBC (4.30-5.90) m/uL Hgb (13.0-17.5) gm/dL Hct (39.0-53.0) % Plt Count (150-450) k/uL Neutrophils # (1.3-7.7) k/uL Creatinine 0.43 L (0.66-1.25) mg/dL Glucose 167 H (74-99) mg/dL POC Glucose (mg/dL) (75-99) mg/dL Microbiology - Last 24 Hours (Table) 06/19/21 19:03 Blood Culture - Preliminary Blood No Growth after 120 hours 06/19/21 19:03 Blood Culture - Preliminary Blood No Growth after 120 hours 06/23/21 12:41 Acid Fast Bacilli Smear - Final Bronchial Washings - Right Acid Fast Bacilli Culture - Preliminary 06/23/21 12:41 Acid Fast Bacilli Smear - Final Bronchial Washings - Left Acid Fast Bacilli Culture - Preliminary 06/23/21 12:41 Gram Stain - Preliminary Bronchial Washings - Left Bronchial Washings Culture - Preliminary 06/23/21 12:41 Gram Stain - Preliminary Bronchial Washings - Right Bronchial Washings Culture - Preliminary Assessment and Plan Plan: Assessment: #1. Acute exacerbation of COPD, complicated by possible pneumonia, patient is status post bronchoscopy with BAL on 06/23/2021, BAL cultures are still pending at this time, patient remains on a combination of azithromycin and Rocephin. Fever pattern is currently improved, patient is currently on Zosyn, and BAL cultures are still pending at this time #2. History of long-standing tobacco use, carries a [id number] smoking history #3. Near syncopal episode possibly related to hypotension and dehydration #4. Prior history of myocardial infarction #5. History of paroxysmal atrial fibrillation status post pacemaker insertion #6. History of coronary artery disease with prior stenting #7. History of CHF with systolic dysfunction #8. History of COPD #9. Lightheadedness and dizziness related to hypotension, orthostatic hypotension secondary to dehydration #10. Weight loss of 15-20 pounds in one month #11. Ischemic cardiomyopathy with EF of 30-35% status post AICD placement #12. History of laparoscopic bilateral inguinal hernia repair #13. History of prescription narcotic abuse, currently on Suboxone #14. History of anxiety Plan: Breathing is improving Still bronchospastic on today's exam Chest x-ray has been reviewed showing stable bilateral upper airspace disease with interstitial prominence BAL cultures are still pending Continue antibiotics per ID service recommendations, patient is currently on Zosyn Continue IV Solu-Medrol, and nebulized bronchodilators We'll continue to follow his clinical course Continue Lovenox, continue GI prophylaxis I performed a history & physical examination of the patient and discussed their management with my nurse practitioner, Kathie Sheffield. I reviewed the nurse practitioner's note and agree with the documented findings and plan of care. Lung sounds are positive for dim breath sounds throughout the lung hendricks. The findings and the impression was discussed with the patient. I attest to the documentation by the nurse practitioner. I have personally seen and examined the patient, performed the documentation and the assessment and plan as written. Number of minutes spent on the visit: [10] Time with Patient: Less than 30
--- NOTE | 2021-06-25 10:00 | P.PN ---
Subjective Progress Note Date: 06/25/21 Principal diagnosis: CC: Lightheadedness and low blood pressure Patient says that he feels better compared to yesterday. His fevers have resolved. He still feels short of breath. He is currently on 4 L nasal cannula and is satting in the low 90s. 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 Psych - Calm and cooperative - Labs CBC & Chem 7: 06/25/21 07:26 06/25/21 07:26 Labs: Abnormal Lab Results - Last 24 Hours (Table) 06/24/21 06/25/21 06/25/21 Range/Units 19:59 06:04 07:26 WBC 10.7 H (3.8-10.6) k/uL RBC 3.82 L (4.30-5.90) m/uL Hgb 11.1 L (13.0-17.5) gm/dL Hct 34.1 L (39.0-53.0) % Plt Count 617 H (150-450) k/uL Neutrophils # 9.3 H (1.3-7.7) k/uL Creatinine (0.66-1.25) mg/dL Glucose (74-99) mg/dL POC Glucose (mg/dL) 271 H 208 H (75-99) mg/dL 06/25/21 Range/Units 07:26 WBC (3.8-10.6) k/uL RBC (4.30-5.90) m/uL Hgb (13.0-17.5) gm/dL Hct (39.0-53.0) % Plt Count (150-450) k/uL Neutrophils # (1.3-7.7) k/uL Creatinine 0.43 L (0.66-1.25) mg/dL Glucose 167 H (74-99) mg/dL POC Glucose (mg/dL) (75-99) mg/dL Microbiology - Last 24 Hours (Table) 06/19/21 19:03 Blood Culture - Preliminary Blood No Growth after 120 hours 06/19/21 19:03 Blood Culture - Preliminary Blood No Growth after 120 hours 06/23/21 12:41 Acid Fast Bacilli Smear - Final Bronchial Washings - Right Acid Fast Bacilli Culture - Preliminary 06/23/21 12:41 Acid Fast Bacilli Smear - Final Bronchial Washings - Left Acid Fast Bacilli Culture - Preliminary 06/23/21 12:41 Gram Stain - Preliminary Bronchial Washings - Left Bronchial Washings Culture - Preliminary 06/23/21 12:41 Gram Stain - Preliminary Bronchial Washings - Right Bronchial Washings Culture - Preliminary Assessment and Plan Assessment: Fevers with weight loss likely due to pneumonia and severe COPD -Patient had bronchoscopy on 06/23/2021 that showed bilateral upper lobe pneumonia and there are no signs of mass -CT abdomen and pelvis is negative for any mass -Patient continues to have fevers despite being on antibiotics so will consult infectious disease -Pro calcitonin was negative COPD not in exacerbation Acute hypoxic respiratory failure Bilateral pneumonia -Patient currently on 4 L nasal cannula and O2 requirements are improving -Patient states that he has oxygen at home but does not use -Resume inhalers -Resume steroids and bronchodilators -Chest x-ray this morning shows stable lateral opacities with interstitial prominence -Infectious disease started the patient on IV Zosyn -Follow cultures from bronchoscopy Orthostatic hypotension secondary to dehydration -Patient started on midodrine -Blood pressure has improved Chronic systolic heart failure (ejection fraction is 30-35%) -Patient is on Coreg -Not on JOSHUA inhibitor secondary to hypotension -Per cardiology no additional medications and patient can follow with his primary equip tech -Patient appears hypovolemic so holding diuretics Chronic conditions Coronary artery disease Paroxysmal atrial fibrillation status post pacemaker (patient not on anticoagulation. Defer to primary equip tech) COPD Tobacco abuse -Stable resume home meds CODE STATUS:full code DVT prophylaxis: Lovenox Anticipated length of stay : [address]: Home
[2021-06-25 11:39] LABS: Glucose,Whole Blood 281 mg/dL (75-99)
[2021-06-25 16:35] LABS: Glucose,Whole Blood 183 mg/dL (75-99)
[2021-06-25 19:55] LABS: Glucose,Whole Blood 242 mg/dL (75-99)
[2021-06-26] MEDS: NON FORMULARY DRUG (Buprenorphine Hcl/Naloxone Hcl [Suboxone 8 Mg-2 Mg Sl Film] 1 EACH Fil SUBLINGUAL SCH ×2 (05:25→13:14)
[2021-06-26 06:10] LABS: Glucose,Whole Blood 186 mg/dL (75-99)
[2021-06-26] MEDS: MIDODRINE 5 MG TAB PO SCH ×2 (06:46→13:18)
[2021-06-26] MEDS: carvediloL 3.125 MG TAB PO SCH (06:47)
[2021-06-26] MEDS: INSULIN ASPART (NovoLOG) 100 UNIT/ML VIAL SQ SCH ×2 (06:47→13:19)
[2021-06-26] MEDS: BUDESONIDE 1 MG/2 ML NEBU INHALATION SCH (08:16)
[2021-06-26] MEDS: IPRATROPIUM-ALBUTEROL 3 ML NEB INHALATION SCH ×2 (08:16→13:13)
[2021-06-26] MEDS: FORMOTEROL FUMARATE 20 MCG/2 ML NEBU INHALATION SCH (08:16)
[2021-06-26] MEDS: ASPIRIN 81 MG PO SCH (08:18)
[2021-06-26] MEDS: PIPERACILLIN-TAZOBACTAM 3.375 GM in SODIUM CHLORIDE 0.9% 100 ML IVPB SCH (08:18)
[2021-06-26] MEDS: ATORVASTATIN 40 MG TAB PO SCH (08:18)
[2021-06-26] MEDS: ENOXAPARIN 40 MG/0.4 ML SYRINGE SQ SCH ×2 (08:18→08:23)
[2021-06-26] MEDS: methylPREDNISolone SOD SUCCI 40 MG/ML 1 ML VIAL IV SCH (08:19)
[2021-06-26] MEDS: NICOTINE 14MG/24HR PATCH TRANSDERM SCH (08:19)
[2021-06-26 08:26] VITALS: BP 117/75; RESP 16; TEMP 97.7
[2021-06-26 08:44] VITALS: PULSE 98
[2021-06-26 08:54] LABS: Basophils % (A) 0 %; Eosinophils % (A) 0 %; HCT 31.3 % (39.0-53.0); HGB 10.3 gm/dL (13.0-17.5); Hypochromasia Slight; Lymphocytes # (A) 1.2 k/uL (1.0-4.8); Lymphocytes % (A) 7 %; MCH 29.2 pg (25.0-35.0); MCHC 32.8 g/dL (31.0-37.0); Mean Platelet Volume 7.3; Monocytes # (A) 0.7 k/uL (0-1.0); Monocytes % (A) 4 %; Neutrophils # (A) 15.8 k/uL (1.3-7.7); Neutrophils % (A) 88 %; Platelet Count 670 k/uL (150-450); RBC 3.52 m/uL (4.30-5.90); RDW 13.6 % (11.5-15.5); WBC 17.9 k/uL (3.8-10.6)
--- NOTE | 2021-06-26 08:56 | P.PN ---
Subjective Progress Note Date: 06/25/21 Principal diagnosis: Fever/pneumonia Patient is a 56 year old male with a past medical history significant for smoking/COPD, patient presented to the hospital on 06/19/2021 for weakness and near syncopal episode in this patient noticed to have a significant pneumonia to the mid and upper lung in this patient status post bronchoscopy patient was running a fever that prompted this infectious disease consultation. On today's evaluation that is 06/25/2021 the patient fever pattern has improved and has been afebrile the last 24 hours, the patient is still complaining of feeling weak, denies having any chest pain very minimal cough no sputum production no abdominal pain or diarrhea Objective - Vital Signs Vital signs: Vital Signs Temp 97.6 F 06/25/21 20:00 Pulse 100 06/25/21 20:04 Resp 18 06/25/21 20:00 BP 116/70 06/25/21 20:00 Pulse Ox 94 L 06/25/21 20:00 Intake & Output 06/25/21 06/25/21 06/26/21 06:59 18:59 06:59 Intake Total 240 Balance 240 Intake: Oral 240 Other: Voiding Method Toilet Toilet Toilet # Voids 1 4 1 - Exam GENERAL DESCRIPTION: Middle-aged male lying in bed in no distress RESPIRATORY SYSTEM: Unlabored breathing , decreased breath sounds at bases HEART: S1 S2 regular rate and rhythm , ABDOMEN: Soft , no tenderness EXTREMITIES: No edema feet - Labs CBC & Chem 7: 06/25/21 07:26 06/25/21 07:26 Labs: Abnormal Lab Results - Last 24 Hours (Table) 06/25/21 06/25/21 06/25/21 Range/Units 06:04 07:26 07:26 WBC 10.7 H (3.8-10.6) k/uL RBC 3.82 L (4.30-5.90) m/uL Hgb 11.1 L (13.0-17.5) gm/dL Hct 34.1 L (39.0-53.0) % Plt Count 617 H (150-450) k/uL Neutrophils # 9.3 H (1.3-7.7) k/uL Creatinine 0.43 L (0.66-1.25) mg/dL Glucose 167 H (74-99) mg/dL POC Glucose (mg/dL) 208 H (75-99) mg/dL 06/25/21 06/25/21 06/25/21 Range/Units 11:38 16:33 19:53 WBC (3.8-10.6) k/uL RBC (4.30-5.90) m/uL Hgb (13.0-17.5) gm/dL Hct (39.0-53.0) % Plt Count (150-450) k/uL Neutrophils # (1.3-7.7) k/uL Creatinine (0.66-1.25) mg/dL Glucose (74-99) mg/dL POC Glucose (mg/dL) 281 H 183 H 242 H (75-99) mg/dL Microbiology - Last 24 Hours (Table) 06/19/21 19:03 Blood Culture - Final Blood No Growth after 144 hours 06/19/21 19:03 Blood Culture - Final Blood No Growth after 144 hours 06/23/21 12:41 Gram Stain - Final Bronchial Washings - Left Bronchial Washings Culture - Final 06/23/21 12:41 Gram Stain - Final Bronchial Washings - Right Bronchial Washings Culture - Final 06/23/21 12:41 Acid Fast Bacilli Smear - Final Bronchial Washings - Right Acid Fast Bacilli Culture - Preliminary 06/23/21 12:41 Acid Fast Bacilli Smear - Final Bronchial Washings - Left Acid Fast Bacilli Culture - Preliminary Assessment and Plan (1) Febrile illness, acute Current Visit: Yes Status: Acute Code(s): R50.9 - FEVER, UNSPECIFIED SNOMED Code(s): 309869290 Plan: 1-Patient with a fever source is likely pneumonia in this patient did have a extensive emphysema and abnormality seen on the CT angiogram of the chest this patient who is s/p bronchoscopy with the cultures currently pending with a fever not responding to Rocephin and Zithromax will need to cover for more resistant gram-negative pathogen 2Patient to continue with Zosyn 3.375 g every 8 hours, antibiotic will be adjusted further on the basis of cultures Time with Patient: Less than 30
[2021-06-26 09:09] LABS: African American GFR (CKD) >90 (>60 ml/min/1.73 sqM); Anion Gap 5 mmol/L; Blood Urea Nitrogen 26 mg/dL (9-20); Calcium 9.3 mg/dL (8.4-10.2); Carbon Dioxide 30 mmol/L (22-30); Chloride 102 mmol/L (98-107); Glucose 170 mg/dL (74-99); Non-African American GFR(CKD) >90 (>60 ml/min/1.73 sqM); Potassium 4.5 mmol/L (3.5-5.1); Sodium 137 mmol/L (137-145)
--- NOTE | 2021-06-26 11:34 | P.DS ---
Providers Date of admission: 06/19/21 18:58 Expected date of discharge: 06/26/21 Attending physician: Mariana Pretty MD Consults: 06/19/21 18:38 Consult Physician Routine Consulting Provider: Delmar Montana Consult Reason/Comments: lung mass ? Do you want consulting provider notified?: Yes 06/24/21 09:05 Consult Physician Routine Consulting Provider: Adryan Hankins Consult Reason/Comments: persistent fevers Do you want consulting provider notified?: Yes Primary care physician: Celso Garcia MD Hospital Course: Discharge Diagnosis: Bilateral pneumonia Severe COPD with exacerbation Acute hypoxic respiratory failure Orthostatic hypotension secondary to dehydration and BP meds Chronic systolic heart failure Coronary artery disease Paroxysmal atrial fibrillation status post pacemaker COPD Tobacco abuse Hospital Course: Patient is a 56-year-old male with a past medical history of coronary disease status post multiple stents, severe COPD, hypertension who presented to the hospital with shortness of breath weakness and weight loss. Patient's chest x-ray showed bilateral consolidation which is concerning for pneumonia. Patient was started on IV Rocephin and azithromycin. Pulmonology was consulted. Despite being on antibiotics patient continued to have fevers so pulmonology did a bronchoscopy. Bronchoscopy showed findings consistent with pneumonia. Patient was also started on steroids for COPD and breathing treatments. ID was also consulted. ID switched patient to IV Zosyn. Patient's fever then resolved. Cultures from bronchoscopy are negative to date. On the time of discharge patient reported significant improvement in his breathing and was walking around in his room. Patient said he would like to go home. Patient was deemed stable for discharge. Since patient has severe COPD I will discharge him on Augmentin for 5 more days and a prolonged antibiotic course. Patient st ates that he has oxygen at home already. I told patient that he needs to be on 4 L nasal cannula all the time. Patient was told to follow-up with pulmonology and cardiology. Patient had an echocardiogram done that showed an EF of 30-35%. This is known to the patient. He is not on any diuretics as he appears hypovolemic. When patient came in he was hypotensive so his Entrusto was discontinued. He was started on midodrine by cardiology. At the time of discharge patient's blood pressure improved and his dizziness also resolved. Cardiology cut his Coreg to 3.125 mg twice a day. Patient was told to continue to hold the Entrusto. Since patient was having weight loss he did have a CT abdomen and pelvis to rule out any underlying mass. This study was negative for any mass. The likely cause of his weight loss is severe COPD. I had an extensive conversation with the patient at the time of discharge and also during his hospital stay about smoking cessation. Patient seen and examined at bedside.[] Vital signs reviewed and stable. 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 Patient Condition at Discharge: Fair Plan - Discharge Summary Discharge Rx Participant: No New Discharge Prescriptions: New Midodrine [ProAmatine] 2.5 mg PO AC-TID 90 Days #90 tab Amoxicillin/Potassium Clav [Augmentin 875-125 Tablet] 1 tab PO Q12HR 5 Days #10 tab carvediloL [Coreg] 3.125 mg PO BID-W/MEALS tab predniSONE 50 mg PO DAILY 5 Days #5 tablet Continue Buprenorphine HCl/Naloxone HCl [Suboxone 8 mg-2 mg Sl Film] 1 film SL TID Aspirin [Adult Low Dose Aspirin EC] 81 tab PO DAILY Nicotine 21Mg/24Hr Patch [Habitrol] 1 patch TRANSDERM DAILY PRN PRN Reason: Nicotine Cravings Atorvastatin [Lipitor] 40 mg PO DAILY Albuterol Inhaler [Ventolin Hfa Inhaler] 2 puff INHALATION RT-QID PRN PRN Reason: Shortness Of Breath Fluticasone/Umeclidin/Vilanter [Trelegy Ellipta 200-62.5-25] 1 puff INHALATION RT-DAILY PRN PRN Reason: Shortness Of Breath Discontinued Carvedilol [Coreg] 6.25 mg PO BID Budesonide/Formoterol Fumarate [Symbicort 160-4.5 Mcg Inhaler] 2 puff INHALATION RT-BID PRN PRN Reason: Shortness Of Breath Sacubitril/Valsartan [Entresto 97 mg-103 mg Tablet] 1 tab PO BID Discharge Medication List Buprenorphine HCl/Naloxone HCl [Suboxone 8 mg-2 mg Sl Film] 1 film SL TID 11/12/15 [History] Aspirin [Adult Low Dose Aspirin EC] 81 tab PO DAILY 03/28/17 [History] Albuterol Inhaler [Ventolin Hfa Inhaler] 2 puff INHALATION RT-QID PRN 06/19/21 [History] Atorvastatin [Lipitor] 40 mg PO DAILY 06/19/21 [History] Fluticasone/Umeclidin/Vilanter [Trelegy Ellipta 200-62.5-25] 1 puff INHALATION RT-DAILY PRN 06/19/21 [History] Nicotine 21Mg/24Hr Patch [Habitrol] 1 patch TRANSDERM DAILY PRN 06/19/21 [History] Amoxicillin/Potassium Clav [Augmentin 875-125 Tablet] 1 tab PO Q12HR 5 Days #10 tab 06/26/21 [Rx] Midodrine [ProAmatine] 2.5 mg PO AC-TID 90 Days #90 tab 06/26/21 [Rx] carvediloL [Coreg] 3.125 mg PO BID-W/MEALS tab 06/26/21 [Rx] predniSONE 50 mg PO DAILY 5 Days #5 tablet 06/26/21 [Rx] Follow up Appointment(s)/Referral(s): Izabela Hickman MD [STAFF PHYSICIAN] - 1 Week Celso Garcia MD [Primary Care Provider] - 1-2 days Leonardo Hernández MD [STAFF PHYSICIAN] - 1 Week Patient Instructions/Handouts: How to Stop Smoking (DC) Discharge Disposition: HOME SELF-CARE
[2021-06-26 11:37] LABS: Glucose,Whole Blood 179 mg/dL (75-99)
--- NOTE | 2021-06-26 14:41 | P.PN ---
<Kathie Sheffield M - Last Filed: 06/26/21 14:27> Subjective Progress Note Date: 06/26/21 Principal diagnosis: Shortness of breath On 06/22/2021 patient seen in follow-up on selective care unit, he is awake, she did have low-grade fevers overnight, he is coughing and producing some yellow colored sputum, he is currently on 2 L of oxygen pulse ox of 91-93%. His lung sounds reveal diminished breath sounds but no rhonchi or wheezing. He currently remains on a combination of azithromycin and Rocephin for possibility of pneumonia. However his Procalcitonin level was negative at 0.15. His echocardiogram showed moderately severe impaired EF of 30-35%, no aortic stenosis or regurgitation, mild mitral regurg, mild tricuspid regurg, no evidence of pulmonary hypertension and right ventricular systolic pressure was normal at less than 35 minutes of mercury. Sputum culture was sent and Gram stain showed no PMNs, few gram-negative bacilli, few gram-positive bacilli, few gram-positive cocci. Blood cultures have been negative. Today's labs have been reviewed, white blood cell count is 10.4, hemoglobin is 11.1, sodium is 132, dressing electrolytes and renal profile were unremarkable, urinalysis showed no evidence of urinary tract infection. Patient currently remains on Invanz, he is on inhaled bronchodilators with Symbicort and albuterol, he remains on Robitussin. He remains on IV hydration with 0.9 normal saline at a rate of 75 ML per hour, continues on midodrine at 2.5 mg 3 times daily, blood pressure has improved. On 06/23/2021 patient seen in follow-up on selective care unit, patient was having febrile episodes again last night with a T-max of 102.9F, he remains on antibiotics with the combination of azithromycin and Rocephin, blood cultures and sputum cultures have been negative thus far, his lung sounds reveal some fine crackles at the right lower and left mid lung. No complaints of chest discomfort, no pleurisy, no hemoptysis, patient is afebrile this morning. No acute events, patient is nothing by mouth after midnight for bronchoscopy with BAL today. On 06/24/2021 patient seen in follow-up on selective care unit, he status post bronchoscopy with BAL yesterday, brought washings were taken and sent separately from bilateral upper lobes, back washings are still pending at this time. Patient in the meantime remains on the, addition of azithromycin and Rocephin, he is on inhaled albuterol and Symbicort. Overnight he states he said increased shortness of breath, he was desaturating down to 79 on 3 L of oxygen with slightest exertion such as walking to the sink. On physical exam is quite tight and wheezy, we will switch his inhaled bronchodilators to nebulized bronchodilators and add IV steroids. Patient again had fever spikes overnight, with a T-max of 100.6F. On 06/25/2021 patient seen in follow-up on selective care unit, he states his breathing is improving, still bronchospastic on physical exam, he is currently on 4 L of oxygen his pulse ox is 91-92%, afebrile overnight, blood pressure has been stable, he is status post bronchoscopy with bronchoalveolar lavage, and BAL cultures are still pending. Patient continues on antibiotics, currently has been transitioned to Zosyn, remains on IV steroids, breathing treatments. Follow-up chest x-ray today showing bilateral airspace disease, and increased interstitium with underlying emphysema. No evident pneumothorax or pleural effusion. Patient states he is not coughing anything up, no complaints of chest discomfort, nausea vomiting or diarrhea, his labs have been reviewed his white blood cell count is 10.7, hemoglobin is 11.1, electrolytes are within normal limits, BUN is 19 creatinine 0.43. On 06/26/2021 patient is seen in follow-up on selective care unit. He states h is breathing has improved, his been afebrile in the last 48 hours, he remains on Zosyn, IV steroids and breathing treatments, clinically feeling better, his been up and ambulating in the room, he is currently on 4 L of oxygen pulse ox is 92%, he is a BAL cultures showed jacey, no other growth. Viral cultures are negative. Today's labs have been noted. No acute events overnight. CT of the abdomen and pelvis did not show definite evidence of mass. CEA level was within normal limits, PSA was within normal limits. Objective - Vital Signs Vital signs: Vital Signs Temp 97.7 F 06/26/21 08:00 Pulse 98 06/26/21 08:41 Resp 16 06/26/21 08:00 BP 117/75 06/26/21 08:00 Pulse Ox 92 L 06/26/21 08:00 Intake & Output 06/25/21 06/26/21 06/26/21 18:59 06:59 18:59 Intake Total 118 Balance 118 Intake: Oral 118 Other: Voiding Method Toilet Toilet Toilet # Voids 4 1 - Exam GENERAL EXAM: Alert, very pleasant, 56-year-old white male on 4 L of oxygen and the pulse ox of 92% HEAD: Normocephalic/atraumatic. EYES: Normal reaction of pupils, equal size. Conjunctiva pink, sclera white. NOSE: Clear with pink turbinates. THROAT: No erythema or exudates. NECK: No masses, no JVD, no thyroid enlargement, no adenopathy. CHEST: No chest wall deformity. Symmetrical expansion. LUNGS: Equal air entry with diffuse expiratory wheezes CVS: Regular rate and rhythm, normal S1 and S2, no gallops, no murmurs, no rubs ABDOMEN: Soft, nontender. No hepatosplenomegaly, normal bowel sounds, no guarding or rigidity. EXTREMITIES: No clubbing, no edema, no cyanosis, 2+ pulses and upper and lower extremities. MUSCULOSKELETAL: Muscle strength and tone normal. SPINE: No scoliosis or deformity SKIN: No rashes CENTRAL NERVOUS SYSTEM: Alert and oriented -3. No focal deficits, tone is normal in all 4 extremities. PSYCHIATRIC: Alert and oriented -3. Appropriate affect. Intact judgment and insight. - Labs CBC & Chem 7: 06/26/21 08:12 06/26/21 08:12 Labs: Abnormal Lab Results - Last 24 Hours (Table) 06/25/21 06/25/21 06/26/21 Range/Units 16:33 19:53 06:08 WBC (3.8-10.6) k/uL RBC (4.30-5.90) m/uL Hgb (13.0-17.5) gm/dL Hct (39.0-53.0) % Plt Count (150-450) k/uL Neutrophils # (1.3-7.7) k/uL BUN (9-20) mg/dL Creatinine (0.66-1.25) mg/dL Glucose (74-99) mg/dL POC Glucose (mg/dL) 183 H 242 H 186 H (75-99) mg/dL 06/26/21 06/26/21 06/26/21 Range/Units 08:12 08:12 11:34 WBC 17.9 H (3.8-10.6) k/uL RBC 3.52 L (4.30-5.90) m/uL Hgb 10.3 L (13.0-17.5) gm/dL Hct 31.3 L (39.0-53.0) % Plt Count 670 H (150-450) k/uL Neutrophils # 15.8 H (1.3-7.7) k/uL BUN 26 H (9-20) mg/dL Creatinine 0.59 L (0.66-1.25) mg/dL Glucose 170 H (74-99) mg/dL POC Glucose (mg/dL) 179 H (75-99) mg/dL Microbiology - Last 24 Hours (Table) 06/23/21 12:41 Fungal Culture - Preliminary Bronchial Washings - Left Jacey albicans 06/23/21 12:41 Fungal Culture - Preliminary Bronchial Washings - Right Jacey albicans 06/19/21 19:03 Blood Culture - Final Blood No Growth after 144 hours 06/19/21 19:03 Blood Culture - Final Blood No Growth after 144 hours 06/23/21 12:41 Gram Stain - Final Bronchial Washings - Left Bronchial Washings Culture - Final 06/23/21 12:41 Gram Stain - Final Bronchial Washings - Right Bronchial Washings Culture - Final Assessment and Plan Plan: Assessment: #1. Acute exacerbation of COPD, complicated by possible pneumonia, patient is status post bronchoscopy with BAL on 06/23/2021, BAL cultures are still pending at this time, patient remains on a combination of azithromycin and Rocephin. Fever pattern is currently improved, patient is currently on Zosyn, and BAL cultures are still pending at this time #2. History of long-standing tobacco use, carries a [id number] smoking history #3. Near syncopal episode possibly related to hypotension and dehydration #4. Prior history of myocardial infarction #5. History of paroxysmal atrial fibrillation status post pacemaker insertion #6. History of coronary artery disease with prior stenting #7. History of CHF with systolic dysfunction #8. History of COPD #9. Lightheadedness and dizziness related to hypotension, orthostatic hypotension secondary to dehydration #10. Weight loss of 15-20 pounds in one month #11. Ischemic cardiomyopathy with EF of 30-35% status post AICD placement #12. History of laparoscopic bilateral inguinal hernia repair #13. History of prescription narcotic abuse, currently on Suboxone #14. History of anxiety Plan: Clinically stable, improving No fever in the last 48 hours No growth on BAL cultures Chest x-ray has been reviewed showing stable bilateral upper airspace disease with interstitial prominence We recommend at least 2 week course of Augmentin, completed prednisone taper Outpatient follow-up with Dr. Ulloa in the office in one or 2 weeks I performed a history & physical examination of the patient and discussed their management with my nurse practitioner, Kathie Sheffield. I reviewed the nurse practitioner's note and agree with the documented findings and plan of care. Lung sounds are positive for dim breath sounds throughout the lung hendricks. The findings and the impression was discussed with the patient. I attest to the documentation by the nurse practitioner. I have personally seen and examined the patient, performed the documentation and the assessment and plan as written. Number of minutes spent on the visit: [10] Time with Patient: Less than 30 <Marisol Lundberg - Last Filed: 06/26/21 19:23> Objective - Vital Signs Vital signs: Vital Signs Temp 97.7 F 06/26/21 08:00 Pulse 98 06/26/21 08:41 Resp 16 06/26/21 08:00 BP 117/75 06/26/21 08:00 Pulse Ox 92 L 06/26/21 08:00 Intake & Output 06/26/21 06/26/21 06/27/21 06:59 18:59 06:59 Intake Total 358 Balance 358 Intake: Oral 358 Other: Voiding Method Toilet Toilet # Voids 1 2 - Labs CBC & Chem 7: 06/26/21 08:12 06/26/21 08:12 Labs: Abnormal Lab Results - Last 24 Hours (Table) 06/25/21 06/26/21 06/26/21 Range/Units 19:53 06:08 08:12 WBC 17.9 H (3.8-10.6) k/uL RBC 3.52 L (4.30-5.90) m/uL Hgb 10.3 L (13.0-17.5) gm/dL Hct 31.3 L (39.0-53.0) % Plt Count 670 H (150-450) k/uL Neutrophils # 15.8 H (1.3-7.7) k/uL BUN (9-20) mg/dL Creatinine (0.66-1.25) mg/dL Glucose (74-99) mg/dL POC Glucose (mg/dL) 242 H 186 H (75-99) mg/dL 06/26/21 06/26/21 Range/Units 08:12 11:34 WBC (3.8-10.6) k/uL RBC (4.30-5.90) m/uL Hgb (13.0-17.5) gm/dL Hct (39.0-53.0) % Plt Count (150-450) k/uL Neutrophils # (1.3-7.7) k/uL BUN 26 H (9-20) mg/dL Creatinine 0.59 L (0.66-1.25) mg/dL Glucose 170 H (74-99) mg/dL POC Glucose (mg/dL) 179 H (75-99) mg/dL Microbiology - Last 24 Hours (Table) 06/23/21 12:41 Fungal Culture - Preliminary Bronchial Washings - Left Jcaey albicans 06/23/21 12:41 Fungal Culture - Preliminary Bronchial Washings - Right Jacey albicans 06/19/21 19:03 Blood Culture - Final Blood No Growth after 144 hours 06/19/21 19:03 Blood Culture - Final Blood No Growth after 144 hours 06/23/21 12:41 Gram Stain - Final Bronchial Washings - Left Bronchial Washings Culture - Final 06/23/21 12:41 Gram Stain - Final Bronchial Washings - Right Bronchial Washings Culture - Final Assessment and Plan Plan: This is a joint evaluation was done along with nurse practitioner this evaluation was done more than 10 minutes. Patient is doing well as is recovering from the pneumonia. Recommended extended course of Augmentin for the next 2 weeks along with a prednisone burst taper to the followed up in the office.
--- NOTE | 2021-06-30 07:54 | CDI ---
Documentation Clarification Form Date: 06/30/21 From: Merry Cisneros Admit Date: 06/19/2021 06:58:00 PM Patient Name: Yuan Li Visit Number: [id number] Discharge Date: 06/26/2021 03:17:00 PM ATTENTION: The Clinical Documentation Specialists (CDI) and [facility] Coding Staff appreciate your assistance in clarifying documentation. Please respond to the clarification below the line at the bottom and electronically sign. The CDI & [facility] Coding staff will review the response and follow-up if needed. Please note: Queries are made part of the Legal Health Record. If you have any questions, please contact the author of this message via ITS. Dr. Karen Jung, Pneumonia is documented in the H&P & DS. Additional clarification regarding the type of pneumonia is requested. History/Risk Factors: COPD/emphysema, CAD w stents, HTN w chronic systolic CHF, mod PCM, failure to thrive, Clinical Indicators: Patient complaining of feeling lightheaded and noticed to have a low blood pressure, patient on presentation to the hospital did have a fever 100.0 degrees formulae did and the patient has been running a fever on a daily basis for the last 5 days patient work-up during this hospital stay he did have mildly elevated white count of 10.7 with a left shift on admission subsequent white count has improved. 06/19 WBC/Left shift: 10.7/8.7 06/19 X-ray: Coarse upper lobe infiltrates with underlying emphysematous change. Correlate for underlying pneumonia. Superimposed interstitial lung disease difficult to exclude. Infectious Consult: Patient with a fever source is likely pneumonia in this patient did have a extensive emphysema and abnormality seen on the CT angiogram of the chest this patient who is s/p bronchoscopy with the cultures currently pending with a fever not responding to Rocephin and Zithromax will need to cover for more resistant gram-negative pathogen 2-discontinue Rocephin and Zithromax 3-start the patient on Zosyn 3.375 g every 8 hours Fungal culture: rare to few Jacey albicans Treatment: Bronchoscopy w BAL or right & left upper lobe, inhalers Antibiotics: IV Rocephin, IV Zithromax, IV Zoysn, O2-2L Please clarify the type of pneumonia, if known: [X ] Bacterial Pneumonia, specify causal organism (if known) [ ] Gram Negative Bacterial Pneumonia [ ] Bacterial Pneumonia Due to E. Coli [ ] Other bacteria (please specify) [ ] Other, please specify [ ] Unable to determine MTDD
--- NOTE | 2021-07-03 22:32 | P.PN ---
Subjective Progress Note Date: 06/26/21 Principal diagnosis: Fever/pneumonia Patient is a 56 year old male with a past medical history significant for smoking/COPD, patient presented to the hospital on 06/19/2021 for weakness and near syncopal episode in this patient noticed to have a significant pneumonia to the mid and upper lung in this patient status post bronchoscopy patient was running a fever that prompted this infectious disease consultation. On today's evaluation that is 06/26/2021 the patient is afebrile today, the patient denies having any chest pain very minimal cough no sputum production no abdominal pain or diarrhea Objective - Vital Signs Vital signs: Vital Signs Temp 97.7 F 06/26/21 08:00 Pulse 98 06/26/21 08:41 Resp 16 06/26/21 08:00 BP 117/75 06/26/21 08:00 Pulse Ox 92 L 06/26/21 08:00 Intake & Output 06/25/21 06/26/21 06/26/21 18:59 06:59 18:59 Intake Total 358 Balance 358 Intake: Oral 358 Other: Voiding Method Toilet Toilet Toilet # Voids 4 1 2 - Exam GENERAL DESCRIPTION: Middle-aged male lying in bed in no distress RESPIRATORY SYSTEM: Unlabored breathing , decreased breath sounds at bases HEART: S1 S2 regular rate and rhythm , ABDOMEN: Soft , no tenderness EXTREMITIES: No edema feet - Labs CBC & Chem 7: 06/26/21 08:12 06/26/21 08:12 Labs: Abnormal Lab Results - Last 24 Hours (Table) 06/25/21 06/25/21 06/26/21 Range/Units 16:33 19:53 06:08 WBC (3.8-10.6) k/uL RBC (4.30-5.90) m/uL Hgb (13.0-17.5) gm/dL Hct (39.0-53.0) % Plt Count (150-450) k/uL Neutrophils # (1.3-7.7) k/uL BUN (9-20) mg/dL Creatinine (0.66-1.25) mg/dL Glucose (74-99) mg/dL POC Glucose (mg/dL) 183 H 242 H 186 H (75-99) mg/dL 06/26/21 06/26/21 06/26/21 Range/Units 08:12 08:12 11:34 WBC 17.9 H (3.8-10.6) k/uL RBC 3.52 L (4.30-5.90) m/uL Hgb 10.3 L (13.0-17.5) gm/dL Hct 31.3 L (39.0-53.0) % Plt Count 670 H (150-450) k/uL Neutrophils # 15.8 H (1.3-7.7) k/uL BUN 26 H (9-20) mg/dL Creatinine 0.59 L (0.66-1.25) mg/dL Glucose 170 H (74-99) mg/dL POC Glucose (mg/dL) 179 H (75-99) mg/dL Microbiology - Last 24 Hours (Table) 06/23/21 12:41 Fungal Culture - Preliminary Bronchial Washings - Left Jacey albicans 06/23/21 12:41 Fungal Culture - Preliminary Bronchial Washings - Right Jacey albicans 06/19/21 19:03 Blood Culture - Final Blood No Growth after 144 hours 06/19/21 19:03 Blood Culture - Final Blood No Growth after 144 hours 06/23/21 12:41 Gram Stain - Final Bronchial Washings - Left Bronchial Washings Culture - Final 06/23/21 12:41 Gram Stain - Final Bronchial Washings - Right Bronchial Washings Culture - Final Assessment and Plan (1) Febrile illness, acute Status: Acute Code(s): R50.9 - FEVER, UNSPECIFIED SNOMED Code(s): 498049751 Plan: 1-Patient with a fever source is likely pneumonia in this patient did have a extensive emphysema and abnormality seen on the CT angiogram of the chest this patient who is s/p bronchoscopy with the cultures currently pending with a fever did not responded to Rocephin and Zithromax however the fever subsequently responded to Zosyn which be continued while waiting for the culture finalized continue supportive care Time with Patient: Less than 30
== END 2021-06-26 15:17 | disposition home or self-care (01) | DRG 193 ==
LOC: EC 14:11 → 3SCARD 18:58 → 3NCARDOBS 06-23 00:09 → 3SCARD 06-23 00:13
PROVIDERS: ADMIT Internal Medicine; ATTEND Internal Medicine
PROC: 0B9G8ZX Drainage of Left Upper Lung Lobe, Via Natural or Artificial Opening Endoscopic, Diagnostic (ICD-10-PCS; principal; 2021-06-23 08:50)
PROC: 0B9C8ZX Drainage of Right Upper Lung Lobe, Via Natural or Artificial Opening Endoscopic, Diagnostic (ICD-10-PCS; principal; 2021-06-23 08:50)
DX: J15.9 Unspecified bacterial pneumonia (principal); J96.01 Acute respiratory failure with hypoxia; E44.0 Moderate protein-calorie malnutrition; R64 Cachexia; Z68.1 Body mass index [BMI] 19.9 or less, adult; I50.22 Chronic systolic (congestive) heart failure; R62.7 Adult failure to thrive; I48.0 Paroxysmal atrial fibrillation; E86.0 Dehydration; I11.0 Hypertensive heart disease with heart failure; J43.9 Emphysema, unspecified; F11.10 Opioid abuse, uncomplicated; Z20.822 Contact with and (suspected) exposure to COVID-19; I25.5 Ischemic cardiomyopathy; I95.1 Orthostatic hypotension; E86.1 Hypovolemia; I08.1 Rheumatic disorders of both mitral and tricuspid valves; I25.10 Atherosclerotic heart disease of native coronary artery without angina pectoris; I25.2 Old myocardial infarction; F17.210 Nicotine dependence, cigarettes, uncomplicated; Z71.6 Tobacco abuse counseling; Z79.82 Long term (current) use of aspirin; Z79.51 Long term (current) use of inhaled steroids; Z79.899 Other long term (current) drug therapy; Z95.5 Presence of coronary angioplasty implant and graft; Z87.19 Personal history of other diseases of the digestive system; Z87.39 Personal history of other diseases of the musculoskeletal system and connective tissue; Z95.810 Presence of automatic (implantable) cardiac defibrillator; Z86.59 Personal history of other mental and behavioral disorders; Z86.73 Personal history of transient ischemic attack (TIA), and cerebral infarction without residual deficits; Z98.890 Other specified postprocedural states; Z88.8 Allergy status to other drugs, medicaments and biological substances; Z82.49 Family history of ischemic heart disease and other diseases of the circulatory system
CPT/HCPCS: 31624; 36415; 70450; 71046; 71275; 74177; 80048; 80053; 81003; 82378; 82550; 83605; 83690; 83735; 84145; 84153; 84484; 85025; 85379; 87040; 87070; 87075; 87102; 87116; 87205; 87206; 87252; 87305; 87496; 87498; 87502; 87529; 87634; 87635; 87798; 88108; 88305; 89050; 93005; 93306; 94640; 94760; 96361; 96374; 99285

== ENCOUNTER 2021-06-29 14:57 | Inpatient (IN) | payer MEDICARE, OTHER ==
[2021-06-29] MEDS ORDERED: IPRATROPIUM 0.5 MG/2.5 ML NEBU INHALATION STA (15:12)
--- NOTE | 2021-06-29 15:21 | ED ---
SOB HPI - General Chief Complaint: Shortness of Breath Stated Complaint: SOB/Swollen Feet/Fever Time Seen by Provider: 06/29/21 15:04 Source: patient, RN notes reviewed Mode of arrival: ambulatory Limitations: no limitations - History of Present Illness Initial Comments: 56-year-old male to the emergency Department with complaints of shortness of breath fever ankle edema. He was in the hospital being treated for bilateral pneumonia and COPD exacerbation from the to the of this month. In discharged 3 days ago but the next day started developing shortness of breath and low-grade fever as well as ankle edema. His temperature 100.9. He had been discharged home on oral antibiotics he was switched from Rocephin and Zithromax to Zosyn while in the hospital on the last visit. No chest pain no other complaints. He states he had had his medications altered due to weight loss etc. MD Complaint: shortness of breath - Related Data Home Medications Medication Instructions Recorded Confirmed Buprenorphine HCl/Naloxone HCl 1.5 film SL DAILY 03/13/15 06/29/21 [Suboxone 8 mg-2 mg Sl Film] Aspirin [Adult Low Dose Aspirin EC] 81 tab PO DAILY 03/28/17 06/29/21 Albuterol Inhaler [Ventolin Hfa 2 puff INHALATION RT-QID PRN 06/19/21 06/29/21 Inhaler] Atorvastatin [Lipitor] 40 mg PO HS 06/19/21 06/29/21 Fluticasone/Umeclidin/Vilanter 1 puff INHALATION RT-DAILY 06/19/21 06/29/21 [Trelegy Ellipta 200-62.5-25] Nicotine 21Mg/24Hr Patch [Habitrol] 1 patch TRANSDERM DAILY 06/19/21 06/29/21 carvediloL [Coreg] 3.125 mg PO HS 06/29/21 06/29/21 Previous Rx's Medication Instructions Recorded Amoxicillin/Potassium Clav 1 tab PO Q12HR 5 Days #10 tab 06/26/21 [Augmentin 875-125 Tablet] Allergies Allergy/AdvReac Type Severity Reaction Status Date / Time clopidogrel bisulfate Allergy Dyspnea,HIV Verified 06/29/21 17:33 [From Plavix] ES,SWELLING Review of Systems ROS Statement: Those systems with pertinent positive or pertinent negative responses have been documented in the HPI. ROS Other: All systems not noted in ROS Statement are negative. 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, takes saboxone Last Myocardial Infarction Date:: 2008 History of Any Multi-Drug Resistant Organisms: None Reported Past Surgical History: Heart Catheterization, Heart Catheterization With Stent, Hernia Repair, Pacemaker Additional Past Surgical History / Comment(s): CARPAL TUNNEL BILATERAL, Heart cath 9 times with 5 stents Past Anesthesia/Blood Transfusion Reactions: No Reported Reaction Date of Last Stent Placement:: 2010 Type of Cardiac Device: Permanent Pacemaker Device Placement Date:: 2008 Past Psychological History: No Psychological Hx Reported Smoking Status: Current every day smoker Past Alcohol Use History: None Reported Past Drug Use History: Marijuana - Past Family History Father Family Medical History: No Reported History Mother Family Medical History: Myocardial Infarction ([place]) General Exam - General Exam Comments Initial Comments: This is a well-developed asthenic appearing male who is awake alert oriented 3 Limitations: no limitations General appearance: alert, in no apparent distress Head exam: Present: atraumatic, normocephalic, normal inspection Eye exam: Present: normal appearance, PERRL, EOMI. Absent: scleral icterus, conjunctival injection, periorbital swelling ENT exam: Present: mucous membranes dry Neck exam: Present: normal inspection, full ROM, other (No Stridor JVD or bruits). Absent: tenderness, meningismus, lymphadenopathy Respiratory exam: Present: wheezes, decreased breath sounds. Absent: respiratory distress, rales, rhonchi, stridor Cardiovascular Exam: Present: regular rate, normal rhythm, normal heart sounds. Absent: systolic murmur, diastolic murmur, rubs, gallop, clicks GI/Abdominal exam: Present: soft, normal bowel sounds. Absent: distended, tenderness, guarding, rebound, rigid Extremities exam: Present: normal inspection, full ROM, normal capillary refill, pedal edema (Corey edema). Absent: tenderness, joint swelling, calf tenderness Back exam: Present: normal inspection Neurological exam: Present: alert, oriented X3, CN II-XII intact Psychiatric exam: Present: normal affect, normal mood Skin exam: Present: warm, dry, intact, normal color. Absent: rash Course Vital Signs 06/29/21 06/29/21 06/29/21 14:58 16:16 16:25 Temperature 98 F Pulse Rate 57 L 104 H 100 Respiratory 16 Rate Blood Pressure 126/75 O2 Sat by Pulse 93 L Oximetry 06/29/21 17:18 Temperature 101.4 F H Pulse Rate 100 Respiratory 18 Rate Blood Pressure 107/80 O2 Sat by Pulse 91 L Oximetry Medical Decision Making - Medical Decision Making I did discuss the findings with the patient family as well as with Dr. Wilkerson. Patient be admitted for further evaluation due to the fever and edema - Lab Data Result diagrams: 06/29/21 15:52 06/29/21 15:52 Lab Results 06/29/21 06/29/21 06/29/21 Range/Units 15:52 15:52 15:52 WBC 14.3 H (3.8-10.6) k/uL RBC 4.27 L (4.30-5.90) m/uL Hgb 12.4 L (13.0-17.5) gm/dL Hct 37.9 L (39.0-53.0) % MCV 88.7 (80.0-100.0) fL MCH 29.0 (25.0-35.0) pg MCHC 32.8 (31.0-37.0) g/dL RDW 14.2 (11.5-15.5) % Plt Count 554 H (150-450) k/uL MPV 7.3 Neutrophils % 81 % Lymphocytes % 9 % Monocytes % 4 % Eosinophils % 6 % Basophils % 1 % Neutrophils # 11.5 H (1.3-7.7) k/uL Lymphocytes # 1.3 (1.0-4.8) k/uL Monocytes # 0.6 (0-1.0) k/uL Eosinophils # 0.8 H (0-0.7) k/uL Basophils # 0.1 (0-0.2) k/uL Hypochromasia Slight PT 10.9 (9.0-12.0) sec INR 1.0 (<1.2) APTT 19.3 L (22.0-30.0) sec Sodium 133 L (137-145) mmol/L Potassium 4.6 (3.5-5.1) mmol/L Chloride 99 (98-107) mmol/L Carbon Dioxide 24 (22-30) mmol/L Anion Gap 10 mmol/L BUN 16 (9-20) mg/dL Creatinine 0.55 L (0.66-1.25) mg/dL Est GFR (CKD-EPI)AfAm >90 (>60 ml/min/1.73 sqM) Est GFR (CKD-EPI)NonAf >90 (>60 ml/min/1.73 sqM) Glucose 174 H (74-99) mg/dL Plasma Lactic Acid Yevgeniy (0.7-2.0) mmol/L Calcium 8.3 L (8.4-10.2) mg/dL Magnesium 2.0 (1.6-2.3) mg/dL Total Bilirubin 0.8 (0.2-1.3) mg/dL AST 46 (17-59) U/L ALT 158 H (4-49) U/L Alkaline Phosphatase 143 H (38-126) U/L Troponin I (0.000-0.034) ng/mL NT-Pro-B Natriuret Pep pg/mL Total Protein 6.3 (6.3-8.2) g/dL Albumin 2.9 L (3.5-5.0) g/dL Urine Color Urine Appearance (Clear) Urine pH (5.0-8.0) Ur Specific Horace (1.001-1.035) Urine Protein (Negative) Urine Glucose (UA) (Negative) Urine Ketones (Negative) Urine Blood (Negative) Urine Nitrite (Negative) Urine Bilirubin (Negative) Urine Urobilinogen (<2.0) mg/dL Ur Leukocyte Esterase (Negative) 06/29/21 06/29/21 06/29/21 Range/Units 15:52 15:52 15:52 WBC (3.8-10.6) k/uL RBC (4.30-5.90) m/uL Hgb (13.0-17.5) gm/dL Hct (39.0-53.0) % MCV (80.0-100.0) fL MCH (25.0-35.0) pg MCHC (31.0-37.0) g/dL RDW (11.5-15.5) % Plt Count (150-450) k/uL MPV Neutrophils % % Lymphocytes % % Monocytes % % Eosinophils % % Basophils % % Neutrophils # (1.3-7.7) k/uL Lymphocytes # (1.0-4.8) k/uL Monocytes # (0-1.0) k/uL Eosinophils # (0-0.7) k/uL Basophils # (0-0.2) k/uL Hypochromasia PT (9.0-12.0) sec INR (<1.2) APTT (22.0-30.0) sec Sodium (137-145) mmol/L Potassium (3.5-5.1) mmol/L Chloride (98-107) mmol/L Carbon Dioxide (22-30) mmol/L Anion Gap mmol/L BUN (9-20) mg/dL Creatinine (0.66-1.25) mg/dL Est GFR (CKD-EPI)AfAm (>60 ml/min/1.73 sqM) Est GFR (CKD-EPI)NonAf (>60 ml/min/1.73 sqM) Glucose (74-99) mg/dL Plasma Lactic Acid Yevgeniy 2.0 (0.7-2.0) mmol/L Calcium (8.4-10.2) mg/dL Magnesium (1.6-2.3) mg/dL Total Bilirubin (0.2-1.3) mg/dL AST (17-59) U/L ALT (4-49) U/L Alkaline Phosphatase (38-126) U/L Troponin I 0.017 (0.000-0.034) ng/mL NT-Pro-B Natriuret Pep 1520 pg/mL Total Protein (6.3-8.2) g/dL Albumin (3.5-5.0) g/dL Urine Color Urine Appearance (Clear) Urine pH (5.0-8.0) Ur Specific Horace (1.001-1.035) Urine Protein (Negative) Urine Glucose (UA) (Negative) Urine Ketones (Negative) Urine Blood (Negative) Urine Nitrite (Negative) Urine Bilirubin (Negative) Urine Urobilinogen (<2.0) mg/dL Ur Leukocyte Esterase (Negative) 06/29/21 Range/Units 15:52 WBC (3.8-10.6) k/uL RBC (4.30-5.90) m/uL Hgb (13.0-17.5) gm/dL Hct (39.0-53.0) % MCV (80.0-100.0) fL MCH (25.0-35.0) pg MCHC (31.0-37.0) g/dL RDW (11.5-15.5) % Plt Count (150-450) k/uL MPV Neutrophils % % Lymphocytes % % Monocytes % % Eosinophils % % Basophils % % Neutrophils # (1.3-7.7) k/uL Lymphocytes # (1.0-4.8) k/uL Monocytes # (0-1.0) k/uL Eosinophils # (0-0.7) k/uL Basophils # (0-0.2) k/uL Hypochromasia PT (9.0-12.0) sec INR (<1.2) APTT (22.0-30.0) sec Sodium (137-145) mmol/L Potassium (3.5-5.1) mmol/L Chloride (98-107) mmol/L Carbon Dioxide (22-30) mmol/L Anion Gap mmol/L BUN (9-20) mg/dL Creatinine (0.66-1.25) mg/dL Est GFR (CKD-EPI)AfAm (>60 ml/min/1.73 sqM) Est GFR (CKD-EPI)NonAf (>60 ml/min/1.73 sqM) Glucose (74-99) mg/dL Plasma Lactic Acid Yevgeniy (0.7-2.0) mmol/L Calcium (8.4-10.2) mg/dL Magnesium (1.6-2.3) mg/dL Total Bilirubin (0.2-1.3) mg/dL AST (17-59) U/L ALT (4-49) U/L Alkaline Phosphatase (38-126) U/L Troponin I (0.000-0.034) ng/mL NT-Pro-B Natriuret Pep pg/mL Total Protein (6.3-8.2) g/dL Albumin (3.5-5.0) g/dL Urine Color Yellow Urine Appearance Clear (Clear) Urine pH 7.0 (5.0-8.0) Ur Specific Horace 1.010 (1.001-1.035) Urine Protein Negative (Negative) Urine Glucose (UA) Negative (Negative) Urine Ketones Negative (Negative) Urine Blood Negative (Negative) Urine Nitrite Negative (Negative) Urine Bilirubin Negative (Negative) Urine Urobilinogen 3.0 (<2.0) mg/dL Ur Leukocyte Esterase Negative (Negative) - EKG Data -: EKG Interpreted by Me EKG shows normal: sinus rhythm EKG Comments: Sinus tachycardia rate of 109. Interval 96 QRS duration 100 daily since QTC 333/397 possible left atrial enlargement evidence of anteroseptal changes. - Radiology Data Radiology results: report reviewed (Imaging reviewed as well as report evidence of some improvement since previous films please see complete report), image reviewed Disposition Clinical Impression: Febrile illness, acute, Pneumonia, Elevated brain natriuretic peptide (BNP) level, Dyspnea Disposition: ADMITTED IP TO THIS HOSP Condition: Fair Referrals: Celso Garcia MD [Primary Care Provider] - 1-2 days
[2021-06-29 16:03] LABS: Basophils # (A) 0.1 k/uL (0-0.2); Basophils % (A) 1 %; Eosinophils # (A) 0.8 k/uL (0-0.7); Eosinophils % (A) 6 %; HCT 37.9 % (39.0-53.0); HGB 12.4 gm/dL (13.0-17.5); Hypochromasia Slight; Lymphocytes # (A) 1.3 k/uL (1.0-4.8); Lymphocytes % (A) 9 %; MCHC 32.8 g/dL (31.0-37.0); MCV 88.7 fL (80.0-100.0); Mean Platelet Volume 7.3; Monocytes # (A) 0.6 k/uL (0-1.0); Monocytes % (A) 4 %; Neutrophils # (A) 11.5 k/uL (1.3-7.7); Neutrophils % (A) 81 %; Platelet Count 554 k/uL (150-450); RBC 4.27 m/uL (4.30-5.90); RDW 14.2 % (11.5-15.5); WBC 14.3 k/uL (3.8-10.6)
[2021-06-29 16:05] LABS: Appearance,Urine Clear (Clear); Bilirubin,Urine Negative (Negative); Blood,Urine Negative (Negative); Color,Urine Yellow; Glucose,Urine (UA) Negative (Negative); Ketones,Urine Negative (Negative); Leukocyte Esterase,Urine Negative (Negative); Nitrite,Urine Negative (Negative); Protein,Urine Negative (Negative)
[2021-06-29] MEDS ORDERED: IPRATROPIUM-ALBUTEROL 3 ML NEB INHALATION STA (16:07)
--- NOTE | 2021-06-29 16:11 | XR ---
EXAMINATION TYPE: XR chest 2V DATE OF EXAM: 06/29/2021 COMPARISON: Chest x-ray 06/25/2021 HISTORY: Difficulty breathing, dyspnea, pneumonia TECHNIQUE: Frontal and lateral views of the chest are obtained. FINDINGS: Findings are similar to prior exam. Defibrillator is stable. Diffuse pleural parenchymal c hanges may be slightly improved in the right lung. No pneumothorax or pleural effusion. There is unde rlying emphysema. Heart is stable. IMPRESSION: There may be some slight interval improvement in aeration.
[2021-06-29 16:16] LABS: ALT 158 U/L (4-49); AST 46 U/L (17-59); African American GFR (CKD) >90 (>60 ml/min/1.73 sqM); Albumin 2.9 g/dL (3.5-5.0); Alkaline Phosphatase 143 U/L (38-126); Anion Gap 10 mmol/L; Blood Urea Nitrogen 16 mg/dL (9-20); Calcium 8.3 mg/dL (8.4-10.2); Carbon Dioxide 24 mmol/L (22-30); Chloride 99 mmol/L (98-107); Glucose 174 mg/dL (74-99); Non-African American GFR(CKD) >90 (>60 ml/min/1.73 sqM); Potassium 4.6 mmol/L (3.5-5.1); Sodium 133 mmol/L (137-145); Total Bilirubin 0.8 mg/dL (0.2-1.3); Total Protein 6.3 g/dL (6.3-8.2)
[2021-06-29 16:21] LABS: Partial Thromboplastin Time 19.3 sec (22.0-30.0); Prothrombin Time 10.9 sec (9.0-12.0)
[2021-06-29] MEDS ORDERED: ACETAMINOPHEN TAB 500 MG TAB PO STA (17:45)
[2021-06-29] MEDS ORDERED: FUROSEMIDE 10 MG/ML 4 ML VIAL IV STA (18:17)
[2021-06-29] MEDS ORDERED: PNEUMONIA PROTOCOL UTILIZED 1 EACH MISC PO PRN (18:22)
[2021-06-29] MEDS ORDERED: AMOXIC-POT CLAV 875-125MG 1 EACH TAB PO SCH (21:00)
[2021-06-29] MEDS: ATORVASTATIN 40 MG TAB PO SCH (22:01)
[2021-06-29] MEDS ORDERED: VANCOMYCIN IV PER PHARMACY 1 EACH MISC MISCELLANE PRN (22:46)
--- NOTE | 2021-06-29 22:54 | P.HPIM ---
History of Present Illness H&P Date: 06/29/21 (Patient seen at 2100) The patient is a 56-year-old male with a PMH of coronary artery disease status post multiple stents, hypertension, severe COPD, systolic CHF, who presents to the emergency room for lower extremity edema and fever. Of note, the patient was recently admitted to the hospital from 06/19 to 06/26 for pneumonia requiring IV antibiotics. The patient had undergone bronchoscopy which was also consistent with pneumonia. The patient's hypoxia and shortness of breath had gradually improved following which the patient was discharged with a course of oral Augmentin. Patient reports that since the day following his discharge, he started having intermittent fevers controlled with Tylenol. He reports compliance with his Augmentin at home. He also reported noticing lower extremity edema predominantly involving the ankles. He denied any additional complaints. Reports gradual improvement in his shortness of breath and denied chest discomfort. Continues to use chronic 2 L nasal cannula oxygen at home. Denied abdominal pain, nausea, vomiting, urinary complaints, diarrhea or headache, neck pain, visual disturbances. Laboratory evaluation was remarkable for leukocytosis of 14.3, sodium 133, glucose 174, ALT 158, alk phos 143, troponin 0.017, proBNP 1520, and unremarkable UA with coronavirus PCR negative. Tmax 101.4F. Chest x-ray revealed improvement in aeration with EKG showing sinus tachycardia at 109 bpm. Review of systems: Pertinent positives and negatives as discussed in HPI, a complete review of systems was performed and all other systems are negative. Physical examination: General: non toxic, no distress, appears at stated age, normal weight Derm: no unusual rashes/lesions no unusual ecchymoses, warm, dry Head: atraumatic, normocephalic, symmetric Eyes: EOMI, no lid lag, anicteric sclera, pupils equal round reactive to light ENT: Nose and ears atraumatic, no thrush, no pharyngeal erythema Neck: No thyromegaly, no cervical lymphadenopathy, trachea midline, supple Mouth: no lip lesion, mucus membranes moist Cardiovascular: S1S2 reg, no murmur, positive posterior tibial pulse bilateral, trace bilateral pedal edema, capillary refill less than 2 seconds Lungs: Expiratory wheezing with by basilar rales, no accessory muscle use Abdominal: soft, nontender to palpation, no guarding, no appreciable organomegaly, normal bowel sounds Ext: no gross muscle atrophy, muscle strength 5 out of 5 in all 4 extremities grossly, no contractures, Neuro: CN II-XI grossly intact, light touch intact all 4 extremities, finger to nose within normal limits, Psych: Alert, oriented, appropriate affect Assessment/plan SIRS without clear source -Switch to Zosyn and Vancomycin -Follow up blood cultures -Consult ID Mild acute CHF exacerbation -Patient's home Entresto was discontinued during prior admission -Start oral Lasix -Fluid restriction Thrombocytosis -At baseline Chronic conditions: HTN, COPD, CAD -C/w home meds DVT prophylaxis -Heparin subq The patient is admitted with an anticipated less than 2 midnight stay for evaluation of SIRS CODE STATUS: Full Code Discussed with: Patient Anticipated discharge date: Anticipated discharge place: Home Past Medical History Past Medical History: Atrial Fibrillation, Coronary Artery Disease (CAD), Chest Pain / Angina, Heart Failure, COPD, Myocardial Infarction ([place]) Additional Past Medical History / Comment(s): 3 MIs in 2008, 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, takes saboxone Last Myocardial Infarction Date:: 2008 History of Any Multi-Drug Resistant Organisms: None Reported Past Surgical History: Heart Catheterization, Heart Catheterization With Stent, Hernia Repair, Pacemaker Additional Past Surgical History / Comment(s): CARPAL TUNNEL BILATERAL, Heart cath 9 times with 5 stents Past Anesthesia/Blood Transfusion Reactions: No Reported Reaction Date of Last Stent Placement:: 2010 Type of Cardiac Device: Permanent Pacemaker, AICD Device Placement Date:: 2008 Past Psychological History: No Psychological Hx Reported Smoking Status: Current every day smoker Past Alcohol Use History: None Reported Additional Past Alcohol Use History / Comment(s): half pack a day smoker Past Drug Use History: None Reported - Past Family History Father Family Medical History: No Reported History Mother Family Medical History: Myocardial Infarction ([place]) Medications and Allergies Home Medications Medication Instructions Recorded Confirmed Type Buprenorphine HCl/Naloxone HCl 1.5 film SL DAILY 03/13/15 06/29/21 History [Suboxone 8 mg-2 mg Sl Film] Aspirin [Adult Low Dose Aspirin EC] 81 tab PO DAILY 03/28/17 06/29/21 History Albuterol Inhaler [Ventolin Hfa 2 puff INHALATION RT-QID PRN 06/19/21 06/29/21 History Inhaler] Atorvastatin [Lipitor] 40 mg PO HS 06/19/21 06/29/21 History Fluticasone/Umeclidin/Vilanter 1 puff INHALATION RT-DAILY 06/19/21 06/29/21 History [Trelegy Ellipta 200-62.5-25] Nicotine 21Mg/24Hr Patch [Habitrol] 1 patch TRANSDERM DAILY 06/19/21 06/29/21 History Amoxicillin/Potassium Clav 1 tab PO Q12HR 5 Days #10 tab 06/26/21 06/29/21 Rx [Augmentin 875-125 Tablet] carvediloL [Coreg] 3.125 mg PO HS 06/29/21 06/29/21 History Allergies Allergy/AdvReac Type Severity Reaction Status Date / Time clopidogrel bisulfate Allergy Dyspnea,HIV Verified 06/29/21 17:33 [From Plavix] ES,SWELLING Physical Exam Vitals: Vital Signs Temp Pulse Pulse Resp BP BP Pulse Ox 06/29/21 20:15 99.2 F 114 H 16 97/67 94 L 06/29/21 19:30 94 20 100/68 92 L 06/29/21 19:00 96 20 98/64 91 L 06/29/21 18:30 93 20 116/82 92 L 06/29/21 18:00 105 H 20 121/97 91 L 06/29/21 17:30 108 H 20 121/97 92 L 06/29/21 17:18 101.4 F H 100 18 107/80 91 L 06/29/21 16:30 101 H 20 115/80 91 L 06/29/21 16:25 100 06/29/21 16:16 104 H 06/29/21 15:30 112 H 20 113/87 91 L 06/29/21 14:58 98 F 57 L 16 126/75 93 L Intake and Output 06/29/21 06/29/21 06/29/21 06:59 14:59 22:59 Other: Weight 52.617 kg 52.617 kg Results CBC & Chem 7: 06/29/21 15:52 06/29/21 15:52 Labs: Abnormal Lab Results - Last 24 Hours (Table) 06/29/21 06/29/21 06/29/21 Range/Units 15:52 15:52 15:52 WBC 14.3 H (3.8-10.6) k/uL RBC 4.27 L (4.30-5.90) m/uL Hgb 12.4 L (13.0-17.5) gm/dL Hct 37.9 L (39.0-53.0) % Plt Count 554 H (150-450) k/uL Neutrophils # 11.5 H (1.3-7.7) k/uL Eosinophils # 0.8 H (0-0.7) k/uL APTT 19.3 L (22.0-30.0) sec Sodium 133 L (137-145) mmol/L Creatinine 0.55 L (0.66-1.25) mg/dL Glucose 174 H (74-99) mg/dL Calcium 8.3 L (8.4-10.2) mg/dL ALT 158 H (4-49) U/L Alkaline Phosphatase 143 H (38-126) U/L Albumin 2.9 L (3.5-5.0) g/dL Thrombosis Risk Factor Assmnt - Choose All That Apply Any of the Below Risk Factors Present?: Yes Each Factor Represents 1 point: Abnormal pulmonary function (COPD), Age 41-60 years, Swollen legs (current) Other Risk Factors: No Other congenital or acquired thrombophilia - If yes, enter type in comment: No Thrombosis Risk Factor Assessment Total Risk Factor Score: 3 Thrombosis Risk Factor Assessment Level: Moderate Risk
[2021-06-30] MEDS ORDERED: VANCOMYCIN 1,000 MG in SODIUM CHLORIDE 0.9% 250 ML IVPB ONE ×2
[2021-06-30] MEDS: PIPERACILLIN-TAZOBACTAM 3.375 GM in SODIUM CHLORIDE 0.9% 100 ML IVPB SCH ×3 (00:25→16:18)
[2021-06-30] MEDS: HEPARIN SODIUM,PORCINE/PF 5,000 UNIT/0.5 ML SYRINGE SQ SCH ×5 (00:26→21:52)
[2021-06-30] MEDS: carvediloL 3.125 MG TAB PO SCH ×2 (00:42→21:51)
[2021-06-30] MEDS: ACETAMINOPHEN TAB 325 MG TAB PO PRN ×3 (02:31→21:51)
[2021-06-30] MEDS: IPRATROPIUM-ALBUTEROL 3 ML NEB INHALATION PRN ×2 (07:11→11:23)
[2021-06-30] MEDS: SYMBICORT 80-4.5 MCG INHALER INHALATION SCH ×2 (07:11→20:34)
[2021-06-30] MEDS: IPRATROPIUM 0.5 MG/2.5 ML NEBU INHALATION SCH ×4 (07:17→20:34)
[2021-06-30 07:41] LABS: HIV 2 AB Non-Reactive (Non-Reactive); HIV AB P24 Non-Reactive (Non-Reactive); HIV P24 AG Non-Reactive (Non-Reactive)
[2021-06-30] MEDS ORDERED: FUROSEMIDE 40 MG TAB PO SCH (09:00)
[2021-06-30] MEDS: NICOTINE 21MG/24HR PATCH TRANSDERM SCH (09:02)
[2021-06-30] MEDS: ASPIRIN 81 MG PO SCH (09:03)
[2021-06-30] MEDS: NON FORMULARY DRUG (Buprenorphine Hcl/Naloxone Hcl [Suboxone 8 Mg-2 Mg Sl Film] 1 EACH Fil SUBLINGUAL SCH (11:01)
[2021-06-30] MEDS: VANCOMYCIN 1,000 MG in SODIUM CHLORIDE 0.9% 250 ML IVPB SCH ×2 (11:43→21:52)
[2021-06-30 12:02] LABS: HGB 11.1 g/dL (13.0-17.0); MCH 27.3 pg (27.0-32.0); MCHC 31.7 g/dL (32.0-37.0); MCV 86.2 fL (80.0-97.0); Mean Platelet Volume 9.6 fL (9.5-12.2); NRBC Per 100 WBC 0 /100 WBCS (0.0-0.0); Platelet Count 629 X 10*3/uL (140-440); RBC 4.06 X 10*6/uL (4.40-5.60); RDW 14.7 % (11.5-14.5); WBC 12.03 X 10*3/uL (4.50-10.00)
--- NOTE | 2021-06-30 12:23 | P.CNPUL ---
<Kathie Sheffield M - Last Filed: 06/30/21 11:48> History of Present Illness Consult date: 06/30/21 Requesting physician: René Dale Reason for consult: other Chief complaint: Fever, ankle swelling History of present illness: 56-year-old male patient with known history of COPD, chronic smoker, CAD, paroxysmal A. fib status post pacemaker insertion, chronic CHF with systolic dysfunction, ischemic cardiomyopathy with EF of 30-35% with AICD placement, anxiety who was recently hospitalized for acute exacerbation of COPD, complicated with possible pneumonia. Patient's chest x-ray showed bilateral airspace disease, underlying emphysema. CT angiogram of the chest showed no evidence of pulmonary embolism, extensive bullous pulmonary emphysema, with extensive honeycombing infiltrate in the mid and upper lung hendricks. Patient was treated with a combination of Rocephin and Zithromax initially, however he continued to have intermittent febrile episodes and subsequently he was switched to Zosyn by infectious disease service. Patient ended up having bronchoalveolar lavage on 06/24/[address] Ulloa, and BAL cultures showed no growth other than Jacey albicans. A separate BAL cultures were taken from right upper lobe and left lower lobe, cytology was negative for diagnostic malignancy. BAL cultures and viral cultures were negative. Patient was clinically improving, after being switched over to Zosyn patient's fever pattern had improved, and subsequently he was discharged home on oral course of Augmentin, and we recommended at least 2 week treatment with Augmentin, completion of prednisone taper and patient was sent home on home oxygen at 4 L. Patient states he was discharged on a Tuesday, by Tuesday night he started having increased swelling in his lower extremities, he could hardly get his socks on. At the same time he started developing a fever. He states he picked up his antibiotics and was taking them, he denied any worsening shortness of breath, no cough, no phlegm production, no hemoptysis no chest pain. No swelling or tenderness in the bilateral calves. He came into the emergency department for reevaluation on 06/29/2021. His temperature on admission was 101.4F. Chest x-ray showed findings similar to the prior exam with bilateral airspace disease, increased interstitium and underlying emphysema. Admission labs showed white blood cell count of 14.3, hemoglobin 12.4, sodium is 133, the rest of electrolytes were unremarkable, B1 is 16 creatinine 0.55, proBNP was 1520, troponin was 0.017, AST was 46, ALT was 158, alk phos was 146, urinalysis showed no evidence of infec tion, patient tested negative for COVID 19. Patient was started on vancomycin for antibiotic coverage, and Zosyn. He was started on oral Lasix after a single dose of IV Lasix 40 mg. Currently ankle edema is improving, he is diuresing, he continues on the bronchodilators. Review of Systems All systems: negative Constitutional: Reports fever, Denies chills Eyes: denies blurred vision, denies pain Ears, nose, mouth and throat: Denies headache, Denies sore throat Cardiovascular: Reports edema, Reports leg edema, Denies chest pain, Denies shortness of breath Respiratory: Denies cough Gastrointestinal: Denies abdominal pain, Denies diarrhea, Denies nausea, Denies vomiting Musculoskeletal: Denies myalgias Integumentary: Denies pruritus, Denies rash Neurological: Denies numbness, Denies weakness Psychiatric: Denies anxiety, Denies depression Endocrine: Denies fatigue, Denies weight change Past Medical History Past Medical History: Atrial Fibrillation, Coronary Artery Disease (CAD), Chest Pain / Angina, Heart Failure, COPD, Myocardial Infarction (ME) Additional Past Medical History / Comment(s): 3 MIs in 2008, 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, takes saboxone Last Myocardial Infarction Date:: 2008 History of Any Multi-Drug Resistant Organisms: None Reported Past Surgical History: Heart Catheterization, Heart Catheterization With Stent, Hernia Repair, Pacemaker Additional Past Surgical History / Comment(s): CARPAL TUNNEL BILATERAL, Heart cath 9 times with 5 stents Past Anesthesia/Blood Transfusion Reactions: No Reported Reaction Date of Last Stent Placement:: 2010 Type of Cardiac Device: Permanent Pacemaker, AICD Device Placement Date:: 2008 Past Psychological History: No Psychological Hx Reported Smoking Status: Current every day smoker Past Alcohol Use History: None Reported Additional Past Alcohol Use History / Comment(s): half pack a day smoker Past Drug Use History: None Reported - Past Family History Father Family Medical History: No Reported History Mother Family Medical History: Myocardial Infarction (ME) Medications and Allergies Home Medications Medication Instructions Recorded Confirmed Type Buprenorphine HCl/Naloxone HCl 1.5 film SL DAILY 03/13/15 06/29/21 History [Suboxone 8 mg-2 mg Sl Film] Aspirin [Adult Low Dose Aspirin EC] 81 tab PO DAILY 03/28/17 06/29/21 History Albuterol Inhaler [Ventolin Hfa 2 puff INHALATION RT-QID PRN 06/19/21 06/29/21 History Inhaler] Atorvastatin [Lipitor] 40 mg PO HS 06/19/21 06/29/21 History Fluticasone/Umeclidin/Vilanter 1 puff INHALATION RT-DAILY 06/19/21 06/29/21 History [Trelegy Ellipta 200-62.5-25] Nicotine 21Mg/24Hr Patch [Habitrol] 1 patch TRANSDERM DAILY 06/19/21 06/29/21 History Amoxicillin/Potassium Clav 1 tab PO Q12HR 5 Days #10 tab 06/26/21 06/29/21 Rx [Augmentin 875-125 Tablet] carvediloL [Coreg] 3.125 mg PO HS 06/29/21 06/29/21 History Allergies Allergy/AdvReac Type Severity Reaction Status Date / Time clopidogrel bisulfate Allergy Dyspnea,HIV Verified 06/29/21 17:33 [From Plavix] ES,SWELLING Physical Exam Vitals: Vital Signs Temp Pulse Pulse Resp BP BP Pulse Ox 06/30/21 11:33 70 16 06/30/21 11:23 72 16 06/30/21 10:28 06/30/21 09:04 98.6 F 06/30/21 07:58 97 16 06/30/21 07:23 78 16 06/30/21 07:12 85 16 95 06/30/21 07:00 98.1 F 97 16 101/68 95 06/30/21 01:07 99.9 F H 107 H 18 104/67 92 L 06/30/21 01:03 16 06/29/21 20:15 99.2 F 114 H 16 97/67 94 L 06/29/21 20:00 114 H 16 06/29/21 19:30 94 20 100/68 92 L 06/29/21 19:00 96 20 98/64 91 L 06/29/21 18:30 93 20 116/82 92 L 06/29/21 18:00 105 H 20 121/97 91 L 06/29/21 17:30 108 H 20 121/97 92 L 06/29/21 17:18 101.4 F H 100 18 107/80 91 L 06/29/21 16:30 101 H 20 115/80 91 L 06/29/21 16:25 100 06/29/21 16:16 104 H 06/29/21 15:30 112 H 20 113/87 91 L 06/29/21 14:58 98 F 57 L 16 126/75 93 L Pulse Ox Pulse Ox Pulse Ox 06/30/21 11:33 06/30/21 11:23 06/30/21 10:28 92 L 85 L 78 L 06/30/21 09:04 06/30/21 07:58 06/30/21 07:23 06/30/21 07:12 06/30/21 07:00 06/30/21 01:07 06/30/21 01:03 06/29/21 20:15 06/29/21 20:00 06/29/21 19:30 06/29/21 19:00 06/29/21 18:30 06/29/21 18:00 06/29/21 17:30 06/29/21 17:18 06/29/21 16:30 06/29/21 16:25 06/29/21 16:16 06/29/21 15:30 06/29/21 14:58 Intake and Output 06/29/21 06/30/21 06/30/21 22:59 06:59 14:59 Intake Total 120 Balance 120 Intake: Oral 120 Other: Voiding Method Toilet Weight 52.617 kg 52.617 kg Results - Laboratory Findings CBC and BMP: 06/29/21 15:52 06/29/21 15:52 PT/INR, D-dimer PT 10.9 sec (9.0-12.0) 06/29/21 15:52 INR 1.0 (<1.2) 06/29/21 15:52 Abnormal lab findings: Abnormal Labs 06/29/21 06/29/21 06/29/21 15:52 15:52 15:52 WBC 14.3 H RBC 4.27 L Hgb 12.4 L Hct 37.9 L Plt Count 554 H Neutrophils # 11.5 H Eosinophils # 0.8 H APTT 19.3 L Sodium 133 L Creatinine 0.55 L Glucose 174 H Calcium 8.3 L ALT 158 H Alkaline Phosphatase 143 H Albumin 2.9 L - Diagnostic Findings Chest x-ray: report reviewed, image reviewed Assessment and Plan Plan: Assessment: #1. Persistent fever, despite antibiotics, rule out bacteremia, blood cultures have been sent, current coverage with Zosyn and vancomycin. COVID-19 PCR was negative #2. Bilateral upper lobe pneumonia, stable on the chest x-ray, status post recent bronchoscopy with BAL on 06/24/2021, and BAL cultures were negative, viral cultures have been negative, COVID-19 PCR was negative #3. Recent hospitalization for acute exacerbation of COPD, and bilateral pneumonia, discharged home on 06/25/2021 to complete 2 week course of Augmentin #4. Bullous emphysema/COPD, on home oxygen since the recent hospitalization on 4 L #5. Increased swelling in bilateral lower extremities, possibly related to acute exacerbation of systolic CHF #6. Prior history of myocardial infarction #7. History of paroxysmal A. fib status post AICD and pacemaker insertion #8. CAD with prior stenting #9. History of CHF with systolic dysfunction #10. Ischemic cardiomyopathy with EF of 30-35% #11. History of laparoscopic bilateral inguinal hernia repair #12. 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 History of anxiety Plan: Continue antibiotics with Zosyn and vancomycin Continue nebulized bronchodilators All cultures from his previous admission have been reviewed, viral cultures reviewed, cytology reviewed and everything was negative Continue oral diuretics Blood cultures have been sent and pending We'll continue to follow his clinical course Chest x-ray shows stable bilateral upper lobe airspace disease ID Service has been consulted We'll continue to follow his clinical course I performed a history & physical examination of the patient and discussed their management with my nurse practitioner, Kathie Sheffield. I reviewed the nurse practitioner's note and agree with the documented findings and plan of care. Lung sounds are positive for diffuse wheezes throughout the lung hendricks. The findings and the impression was discussed with the patient. I attest to the documentation by the nurse practitioner. I have personally seen and examined the patient, performed the documentation and the assessment and plan as written. Number of minutes spent on the visit: [15] Time with Patient: Greater than 30 <Marisol Lundberg - Last Filed: 06/30/21 18:06> Physical Exam Vitals: Vital Signs Temp Pulse Pulse Resp BP BP Pulse Ox 06/30/21 16:33 108 H 18 06/30/21 16:22 101 H 16 96 06/30/21 16:17 98.4 F 06/30/21 15:00 100.8 F H 112 H 18 102/67 95 06/30/21 11:33 70 16 06/30/21 11:23 72 16 06/30/21 10:28 06/30/21 09:04 98.6 F 06/30/21 07:58 97 16 06/30/21 07:23 78 16 06/30/21 07:12 85 16 95 06/30/21 07:00 98.1 F 97 16 101/68 95 06/30/21 01:07 99.9 F H 107 H 18 104/67 92 L 06/30/21 01:03 16 06/29/21 20:15 99.2 F 114 H 16 97/67 94 L 06/29/21 20:00 114 H 16 06/29/21 19:30 94 20 100/68 92 L 06/29/21 19:00 96 20 98/64 91 L 06/29/21 18:30 93 20 116/82 92 L Pulse Ox Pulse Ox Pulse Ox 06/30/21 16:33 06/30/21 16:22 06/30/21 16:17 06/30/21 15:00 06/30/21 11:33 06/30/21 11:23 06/30/21 10:28 92 L 85 L 78 L 06/30/21 09:04 06/30/21 07:58 06/30/21 07:23 06/30/21 07:12 06/30/21 07:00 06/30/21 01:07 06/30/21 01:03 06/29/21 20:15 06/29/21 20:00 06/29/21 19:30 06/29/21 19:00 06/29/21 18:30 Intake and Output 06/30/21 06/30/21 06/30/21 06:59 14:59 22:59 Intake Total 120 Balance 120 Intake: Oral 120 Other: Voiding Method Toilet Weight 52.617 kg Results - Laboratory Findings CBC and BMP: 06/30/21 07:33 06/30/21 07:33 PT/INR, D-dimer PT 10.9 sec (9.0-12.0) 06/29/21 15:52 INR 1.0 (<1.2) 06/29/21 15:52 Abnormal lab findings: Abnormal Labs 06/29/21 06/29/21 06/29/21 15:52 15:52 15:52 WBC 14.3 H RBC 4.27 L Hgb 12.4 L Hct 37.9 L MCHC RDW Plt Count 554 H Neutrophils # 11.5 H Eosinophils # 0.8 H APTT 19.3 L Sodium 133 L Creatinine 0.55 L BUN/Creatinine Ratio Glucose 174 H Calcium 8.3 L ALT 158 H Alkaline Phosphatase 143 H Albumin 2.9 L 06/30/21 06/30/21 07:33 07:33 WBC 12.03 H RBC 4.06 L Hgb 11.1 L Hct 35.0 L MCHC 31.7 L RDW 14.7 H Plt Count 629 H Neutrophils # Eosinophils # APTT Sodium Creatinine BUN/Creatinine Ratio 22.11 H Glucose Calcium ALT Alkaline Phosphatase Albumin Assessment and Plan Plan: This is a joint evaluation that was done along with nurse practitioner. This ventilation was done and more than 30 minutes. I was present during the evaluation. I fully attest to the information mentioned above. I agree on the assessment and the plan. The patient will be started on antibiotics based on the fever and ongoing pneumonia with accommodation Zosyn and vancomycin. We'll continue to follow. Prognosis poor baseline above-mentioned comorbidities.
[2021-06-30 12:31] LABS: African American GFR (CKD) 128.8 (60.0-200.0); Anion Gap 11.5 mmol/L (10.00-18.00); BUN/Creat Ratio 22.11 Ratio (12.00-20.00); Blood Urea Nitrogen 13.4 mg/dL (9.0-27.0); Calcium 8.7 mg/dL (8.7-10.3); Carbon Dioxide 24.6 mmol/L (20.0-27.5); Non-African American GFR(CKD) 111.2 (60.0-200.0); Potassium 4.5 mmol/L (3.5-5.5)
--- NOTE | 2021-06-30 14:55 | P.PN ---
Subjective Progress Note Date: 06/30/21 (delayed charting seen at 1115) Principal diagnosis: fevers Patient is a 56-year-old male with known coronary artery disease status post multiple stents, severe COPD, hypertension, systolic congestive heart failure with ejection fraction 30-35%, and recent hospitalization from 06/19-06/26 for pneumonia who presented to the ER with complaints of lower extremity edema and fevers. In the ER he underwent an extensive evaluation. He is on have a fever of 101.4. Laboratory analysis demonstrated a white blood cell count of 14.3. Chest x-ray showed again right-sided pneumonia that appeared improved from prior. He was started on Zosyn and arrangements are made for admission. Pulmonology and infectious disease were consulted. Of note patient had been discharged home on Augmentin and has been taking all medications as prescribed Patient seen and examined at bedside. He reports that his breathing has been better since his discharge. However he started having fevers approximately 36 hours after discharge which have slowly worsened over time. He feels fairly weak. He has no other complaints currently. He denies any nausea vomiting or diarrhea. His edema is much better than at presentation General: ill appearing, mild distress, no distress, appears at stated age, cachexia Derm: warm, dry Head: atraumatic, normocephalic, symmetric Eyes: EOMI, no lid lag, anicteric sclera Mouth: no lip lesion, mucus membranes moist Cardiovascular: S1S2 reg, no murmur, positive posterior tibial pulse bilateral, Lungs: Course bs bilateral, + rhonchi, no rales , no accessory muscle use Abdominal: soft, nontender to palpation, no guarding, no appreciable org anomegaly Ext: no gross muscle atrophy, no edema, no contractures Neuro: CN II-XI grossly intact, no focal neuro deficits Psych: Alert, oriented, appropriate affect Assessment/Plan: Pneumonia, failed outpatient treatment with sepsis AE COPD Acute on chronic hypoxic respiratory failure - vanc/zosyn - Beta D glucan, MRSA nasal swab - Pulm and ID recs - Bronchodilators - pulm hygeine Acute exacerbation of systlic CHF with eF 30-35 % ASCAD - change oral lasix to once daily - ASA, lipitor, BB - entresto on hold due to recent hypotension Thrombocytosis - chronic at baseline - follow CBC Tobacco abuse - cessation - nicotine replacement if needed Underweight with BMI 18.2 - dietitian recs DVT prophylaxis: heparin Discussed with: Patient, nursing Anticipated discharge: in 3-[address]: home A total of 45 minutes was spent on the care of this complex patient more than 50% of the time was spent in counseling and care coordination. Objective - Vital Signs Vital signs: Vital Signs Temp 98.6 F 06/30/21 09:04 Pulse 70 06/30/21 11:33 Resp 16 06/30/21 11:33 BP 101/68 06/30/21 07:00 Pulse Ox 85 L 06/30/21 10:28 Intake & Output 06/29/21 06/30/21 06/30/21 18:59 06:59 18:59 Intake Total 120 Balance 120 Weight 52.617 kg 52.617 kg 52.617 kg Intake: Oral 120 Other: Voiding Method Toilet - Labs CBC & Chem 7: 06/30/21 07:33 06/30/21 07:33 Labs: Abnormal Lab Results - Last 24 Hours (Table) 06/29/21 06/29/21 06/29/21 Range/Units 15:52 15:52 15:52 WBC 14.3 H (3.8-10.6) k/uL RBC 4.27 L (4.30-5.90) m/uL Hgb 12.4 L (13.0-17.5) gm/dL Hct 37.9 L (39.0-53.0) % MCHC (32.0-37.0) g/dL RDW (11.5-14.5) % Plt Count 554 H (150-450) k/uL Neutrophils # 11.5 H (1.3-7.7) k/uL Eosinophils # 0.8 H (0-0.7) k/uL APTT 19.3 L (22.0-30.0) sec Sodium 133 L (137-145) mmol/L Creatinine 0.55 L (0.66-1.25) mg/dL BUN/Creatinine Ratio (12.00-20.00) Ratio Glucose 174 H (74-99) mg/dL Calcium 8.3 L (8.4-10.2) mg/dL ALT 158 H (4-49) U/L Alkaline Phosphatase 143 H (38-126) U/L Albumin 2.9 L (3.5-5.0) g/dL 06/30/21 06/30/21 Range/Units 07:33 07:33 WBC 12.03 H (3.8-10.6) k/uL RBC 4.06 L (4.30-5.90) m/uL Hgb 11.1 L (13.0-17.5) gm/dL Hct 35.0 L (39.0-53.0) % MCHC 31.7 L (32.0-37.0) g/dL RDW 14.7 H (11.5-14.5) % Plt Count 629 H (150-450) k/uL Neutrophils # (1.3-7.7) k/uL Eosinophils # (0-0.7) k/uL APTT (22.0-30.0) sec Sodium (137-145) mmol/L Creatinine (0.66-1.25) mg/dL BUN/Creatinine Ratio 22.11 H (12.00-20.00) Ratio Glucose (74-99) mg/dL Calcium (8.4-10.2) mg/dL ALT (4-49) U/L Alkaline Phosphatase (38-126) U/L Albumin (3.5-5.0) g/dL
[2021-06-30] MEDS: ATORVASTATIN 40 MG TAB PO SCH (21:51)
[2021-07-01] MEDS: PIPERACILLIN-TAZOBACTAM 3.375 GM in SODIUM CHLORIDE 0.9% 100 ML IVPB SCH ×3 (00:03→15:31)
[2021-07-01 07:02] LABS: HCT 33.5 % (39.0-53.0); HGB 10.9 gm/dL (13.0-17.5); Hypochromasia Slight; MCH 28.7 pg (25.0-35.0); MCHC 32.5 g/dL (31.0-37.0); MCV 88.1 fL (80.0-100.0); Mean Platelet Volume 7.3; Platelet Count 625 k/uL (150-450); RDW 14.2 % (11.5-15.5); WBC 10.6 k/uL (3.8-10.6)
[2021-07-01 07:16] LABS: ALT 79 U/L (4-49); AST 27 U/L (17-59); African American GFR (CKD) >90 (>60 ml/min/1.73 sqM); Albumin 2.4 g/dL (3.5-5.0); Albumin/Globulin Ratio 0.8; Alkaline Phosphatase 125 U/L (38-126); Anion Gap 4 mmol/L; Blood Urea Nitrogen 15 mg/dL (9-20); Carbon Dioxide 26 mmol/L (22-30); Chloride 101 mmol/L (98-107); Globulin 3.1 g/dL; Glucose 97 mg/dL (74-99); Magnesium 1.9 mg/dL (1.6-2.3); Non-African American GFR(CKD) >90 (>60 ml/min/1.73 sqM); Potassium 4.5 mmol/L (3.5-5.1); Sodium 131 mmol/L (137-145); Total Bilirubin 0.6 mg/dL (0.2-1.3); Total Protein 5.5 g/dL (6.3-8.2)
[2021-07-01] MEDS: ASPIRIN 81 MG PO SCH (07:25)
[2021-07-01] MEDS: FUROSEMIDE 40 MG TAB PO SCH (07:25)
[2021-07-01] MEDS: ACETAMINOPHEN TAB 325 MG TAB PO PRN ×3 (07:26→20:47)
[2021-07-01] MEDS: NICOTINE 21MG/24HR PATCH TRANSDERM SCH (07:27)
[2021-07-01] MEDS: HEPARIN SODIUM,PORCINE/PF 5,000 UNIT/0.5 ML SYRINGE SQ SCH ×2 (07:28→15:09)
[2021-07-01] MEDS: NON FORMULARY DRUG (Buprenorphine Hcl/Naloxone Hcl [Suboxone 8 Mg-2 Mg Sl Film] 1 EACH Fil SUBLINGUAL SCH (07:40)
[2021-07-01] MEDS: SYMBICORT 80-4.5 MCG INHALER INHALATION SCH ×2 (08:03→19:21)
[2021-07-01] MEDS: IPRATROPIUM 0.5 MG/2.5 ML NEBU INHALATION SCH ×4 (08:03→19:21)
[2021-07-01] MEDS: VANCOMYCIN 1,000 MG in SODIUM CHLORIDE 0.9% 250 ML IVPB SCH (10:03)
--- NOTE | 2021-07-01 10:43 | XR ---
EXAMINATION TYPE: XR chest 1V portable DATE OF EXAM: 07/01/2021 COMPARISON: Chest x-ray 06/29/2021 HISTORY: Redness of breath TECHNIQUE: Single frontal view of the chest is obtained. FINDINGS: Confluent densities present in the upper lobes as compared to prior exam. No evident pneum othorax or pleural effusion. There is underlying emphysema. Defibrillator is stable. Cardiac mediasti nal silhouette is unchanged. IMPRESSION: Worsening pneumonia.
--- NOTE | 2021-07-01 11:38 | P.PN ---
<Kathie Sheffield M - Last Filed: 07/01/21 11:28> Subjective Progress Note Date: 07/01/21 Principal diagnosis: swelling in BLE 56-year-old male patient with known history of COPD, chronic smoker, CAD, paroxysmal A. fib status post pacemaker insertion, chronic CHF with systolic dysfunction, ischemic cardiomyopathy with EF of 30-35% with AICD placement, anxiety who was recently hospitalized for acute exacerbation of COPD, complicated with possible pneumonia. Patient's chest x-ray showed bilateral airspace disease, underlying emphysema. CT angiogram of the chest showed no evidence of pulmonary embolism, extensive bullous pulmonary emphysema, with extensive honeycombing infiltrate in the mid and upper lung hendricks. Patient was treated with a combination of Rocephin and Zithromax initially, however he continued to have intermittent febrile episodes and subsequently he was switched to Zosyn by infectious disease service. Patient ended up having bronchoalveolar lavage on 06/24/[address] Ulloa, and BAL cultures showed no growth other than Jacey albicans. A separate BAL cultures were taken from right upper lobe and left lower lobe, cytology was negative for diagnostic malignancy. BAL cultures and viral cultures were negative. Patient was clinically improving, after being switched over to Zosyn patient's fever pattern had improved, and subsequently he was discharged home on oral course of Augmentin, and we recommended at least 2 week treatment with Augmentin, completion of prednisone taper and patient was sent home on home oxygen at 4 L. Patient states he was discharged on a Tuesday, by Tuesday night he started having increased swelling in his lower extremities, he could hardly get his socks on. At the same time he started developing a fever. He states he picked up his antibiotics and was taking them, he denied any worsening shortness of breath, no cough, no phlegm production, no hemoptysis no chest pain. No swelling or tenderness in the bilateral calves. He came into the emergency department for reevaluation on 06/29/2021. His temperature on admission was 101.4F. Chest x-ray showed findings similar to the prior exam with bilateral airspace disease, increased interstitium and underlying emphysema. Admission labs showed white blood cell count of 14.3, hemoglobin 12.4, sodium is 133, the rest of electrolytes were unremarkable, B1 is 16 creatinine 0.55, proBNP was 1520, troponin was 0.017, AST was 46, ALT was 158, alk phos was 146, urinalysis showed no evidence of infection, patient tested negative for COVID 19. Patient was started on vanc omycin for antibiotic coverage, and Zosyn. He was started on oral Lasix after a single dose of IV Lasix 40 mg. Currently ankle edema is improving, he is diuresing, he continues on the bronchodilators. On 07/01/2021 patient seen in follow-up on medical surgical floor, he states he is breathing comfortably, he is currently on 2 L of oxygen his pulse ox is 91- 93%. His ankle swelling is significantly down, this morning patient was able to produce a sputum specimen which was sent for culture, follow-up chest x-ray today showing confluent densities in the upper lobes, and worsening pneumonia. Patient currently remains on Zosyn and vancomycin. No fever or chills overnight. White blood cell count is 10.6, hemoglobin is 10.9, sodium is 131, depressive/lites and renal profile were unremarkable, LFTs are improved. No chest discomfort, no hemoptysis. Patient continues on nebulized bronchodi lators, he is on oral dose of Lasix 40 mg daily. Objective - Vital Signs Vital signs: Vital Signs Temp 99.7 F H 07/01/21 07:00 Pulse 109 H 07/01/21 09:31 Resp 16 07/01/21 07:00 BP 96/64 07/01/21 07:00 Pulse Ox 91 L 07/01/21 07:00 Intake & Output 06/30/21 07/01/21 07/01/21 18:59 06:59 18:59 Intake Total 240 118 Balance 240 118 Weight 52.617 kg Intake: Oral 240 118 Other: Voiding Method Toilet Toilet # Voids 2 - Exam GENERAL EXAM: Alert, very pleasant, 56-year-old white female, on 2 L of oxygen pulse ox of 91-93%, comfortable in no apparent distress. HEAD: Normocephalic/atraumatic. EYES: Normal reaction of pupils, equal size. Conjunctiva pink, sclera white. NOSE: Clear with pink turbinates. THROAT: No erythema or exudates. NECK: No masses, no JVD, no thyroid enlargement, no adenopathy. CHEST: No chest wall deformity. Symmetrical expansion. LUNGS: Equal air entry with no crackles, wheeze, rhonchi or dullness. CVS: Regular rate and rhythm, normal S1 and S2, no gallops, no murmurs, no rubs ABDOMEN: Soft, nontender. No hepatosplenomegaly, normal bowel sounds, no guarding or rigidity. EXTREMITIES: No clubbing, no edema, no cyanosis, 2+ pulses and upper and lower extremities. MUSCULOSKELETAL: Muscle strength and tone normal. SPINE: No scoliosis or deformity SKIN: No rashes CENTRAL NERVOUS SYSTEM: Alert and oriented -3. No focal deficits, tone is normal in all 4 extremities. PSYCHIATRIC: Alert and oriented -3. Appropriate affect. Intact judgment and insight. - Labs CBC & Chem 7: 07/01/21 06:37 07/01/21 06:37 Labs: Abnormal Lab Results - Last 24 Hours (Table) 06/30/21 06/30/21 07/01/21 Range/Units 07:33 07:33 06:37 WBC 12.03 H (4.50-10.00) X 10*3/uL RBC 4.06 L 3.80 L (4.40-5.60) X 10*6/uL Hgb 11.1 L 10.9 L (13.0-17.0) g/dL Hct 35.0 L 33.5 L (39.6-50.0) % MCHC 31.7 L (32.0-37.0) g/dL RDW 14.7 H (11.5-14.5) % Plt Count 629 H 625 H (140-440) X 10*3/uL Sodium (137-145) mmol/L BUN/Creatinine Ratio 22.11 H (12.00-20.00) Ratio Calcium (8.4-10.2) mg/dL ALT (4-49) U/L Total Protein (6.3-8.2) g/dL Albumin (3.5-5.0) g/dL 07/01/21 Range/Units 06:37 WBC (4.50-10.00) X 10*3/uL RBC (4.40-5.60) X 10*6/uL Hgb (13.0-17.0) g/dL Hct (39.6-50.0) % MCHC (32.0-37.0) g/dL RDW (11.5-14.5) % Plt Count (140-440) X 10*3/uL Sodium 131 L (137-145) mmol/L BUN/Creatinine Ratio (12.00-20.00) Ratio Calcium 8.0 L (8.4-10.2) mg/dL ALT 79 H (4-49) U/L Total Protein 5.5 L (6.3-8.2) g/dL Albumin 2.4 L (3.5-5.0) g/dL Microbiology - Last 24 Hours (Table) 07/01/21 06:30 Sputum Culture - Preliminary Sputum 06/30/21 14:03 Nasal Screen MRSA/MSSA - Preliminary Nasal Swab 06/29/21 19:24 Blood Culture - Preliminary Blood No Growth after 24 hours 06/29/21 15:40 Blood Culture - Preliminary Blood No Growth after 24 hours Assessment and Plan Plan: Assessment: #1. Persistent fever, despite antibiotics, rule out bacteremia, blood cultures have been sent, current coverage with Zosyn and vancomycin. COVID-19 PCR was negative #2. Bilateral upper lobe pneumonia, stable on the chest x-ray, status post recent bronchoscopy with BAL on 06/24/2021, and BAL cultures were negative, vir al cultures have been negative, COVID-19 PCR was negative #3. Recent hospitalization for acute exacerbation of COPD, and bilateral pneumonia, discharged home on 06/25/2021 to complete 2 week course of Augmentin #4. Bullous emphysema/COPD, on home oxygen since the recent hospitalization on 4 L #5. Increased swelling in bilateral lower extremities, possibly related to acute exacerbation of systolic CHF #6. Prior history of myocardial infarction #7. History of paroxysmal A. fib status post AICD and pacemaker insertion #8. CAD with prior stenting #9. History of CHF with systolic dysfunction #10. Ischemic cardiomyopathy with EF of 30-35% #11. History of laparoscopic bilateral inguinal hernia repair #12. 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 History of anxiety Plan: Continue antibiotics with Zosyn and vancomycin Continue nebulized bronchodilators Repeat sputum culture has been sent Clinically patient is improving No worsening dyspnea or cough Follow-up chest x-ray has been reviewed, and airspace disease in the right upper lobe appears worsened Clinically patient is stable, will continue to follow All cultures remain negative We'll continue with Zosyn and vancomycin Continue breathing treatments I have personally seen and examined the patient, performed the documentation and the assessment and plan as written. Number of minutes spent on the visit: [15] Time with Patient: Less than 30 <Marisol Lundberg - Last Filed: 07/01/21 15:39> Objective - Vital Signs Vital signs: Vital Signs Temp 100.7 F H 07/01/21 15:33 Pulse 115 H 07/01/21 15:34 Resp 16 07/01/21 14:45 BP 108/69 07/01/21 14:45 Pulse Ox 94 L 07/01/21 15:36 Intake & Output 06/30/21 07/01/21 07/01/21 18:59 06:59 18:59 Intake Total 240 118 Balance 240 118 Weight 52.617 kg Intake: Oral 240 118 Other: Voiding Method Toilet Toilet # Voids 2 - Labs CBC & Chem 7: 07/01/21 06:37 07/01/21 06:37 Labs: Abnormal Lab Results - Last 24 Hours (Table) 07/01/21 07/01/21 Range/Units 06:37 06:37 RBC 3.80 L (4.30-5.90) m/uL Hgb 10.9 L (13.0-17.5) gm/dL Hct 33.5 L (39.0-53.0) % Plt Count 625 H (150-450) k/uL Sodium 131 L (137-145) mmol/L Calcium 8.0 L (8.4-10.2) mg/dL ALT 79 H (4-49) U/L Total Protein 5.5 L (6.3-8.2) g/dL Albumin 2.4 L (3.5-5.0) g/dL Microbiology - Last 24 Hours (Table) 07/01/21 06:30 Sputum Culture - Preliminary Sputum 06/30/21 14:03 Nasal Screen MRSA/MSSA - Preliminary Nasal Swab 06/29/21 19:24 Blood Culture - Preliminary Blood No Growth after 24 hours 06/29/21 15:40 Blood Culture - Preliminary Blood No Growth after 24 hours Assessment and Plan Plan: I have personally seen and examined the patient and reviewed the documentation. I performed a joint evaluation with the nurse practitioner in this evaluation was done more than 20 minutes. I fully agree with the documentation above and the plan of care.
--- NOTE | 2021-07-01 16:47 | P.PN ---
Subjective Progress Note Date: 07/01/21 (delayed charting seen at 1130) Principal diagnosis: fevers Patient is a 56-year-old male with known coronary artery disease status post multiple stents, severe COPD, hypertension, systolic congestive heart failure with ejection fraction 30-35%, and recent hospitalization from 06/19-06/26 for pneumonia who presented to the ER with complaints of lower extremity edema and fevers. In the ER he underwent an extensive evaluation. He is on have a fever of 101.4. Laboratory analysis demonstrated a white blood cell count of 14.3. Chest x-ray showed again right-sided pneumonia that appeared improved from prior. He was started on Zosyn and arrangements are made for admission. P ulmonology and infectious disease were consulted. Of note patient had been discharged home on Augmentin and has been taking all medications as prescribed. His white blood cell count improved, however his chest x-ray worsened. HIV status was negative. His fungal cultures from prior admission are pending. Patient seen and examined at bedside. He reports that his breathing has been better since his discharge. However he started having fevers approximately 36 hours after discharge which have slowly worsened over time. He feels fairly weak. He has no other complaints currently. He denies any nausea vomiting or diarrhea. His edema is much better than at presentation General: ill appearing, mild distress, no distress, appears at stated age, cachexia Derm: warm, dry Head: atraumatic, normocephalic, symmetric Eyes: EOMI, no lid lag, anicteric sclera Mouth: no lip lesion, mucus membranes moist Cardiovascular: S1S2 reg, no murmur, positive posterior tibial pulse bilateral, Lungs: Course bs bilateral, + rhonchi, no rales , no accessory muscle use Abdominal: soft, nontender to palpation, no guarding, no appreciable organomegaly Ext: no gross muscle atrophy, no edema, no contractures Neuro: CN II-XI grossly intact, no focal neuro deficits Psych: Alert, oriented, appropriate affect Assessment/Plan: Pneumonia, failed outpatient treatment with sepsis AE COPD Acute on chronic hypoxic respiratory failure - vanc/zosyn - Await cultures. - Beta D glucan, MRSA nasal swab are both pending - HIV negative - Pulm and ID recs - Bronchodilators - pulm hygeine - Blood cultures negative to date. Acute exacerbation of systolic CHF with EF 30-35 % ASCAD - Oral Lasix - ASA, lipitor, BB - entresto on hold due to recent hypotension on last hospital stay. 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 Thrombocytosis - chronic at baseline - follow CBC Tobacco abuse - cessation - nicotine replacement if needed Underweight with BMI 18.2 - dietitian recsheri DVT prophylaxis: heparin Discussed with: Patient, nursing Anticipated discharge: in 3-[address]: home A total of 37 minutes was spent on the care of this complex patient more than 50% of the time was spent in counseling and care coordination. Objective - Vital Signs Vital signs: Vital Signs Temp 100.7 F H 07/01/21 15:33 Pulse 123 H 07/01/21 15:44 Resp 16 07/01/21 14:45 BP 108/69 07/01/21 14:45 Pulse Ox 94 L 07/01/21 15:36 Intake & Output 06/30/21 07/01/21 07/01/21 18:59 06:59 18:59 Intake Total 240 118 Balance 240 118 Weight 52.617 kg Intake: Oral 240 118 Other: Voiding Method Toilet Toilet # Voids 2 - Labs CBC & Chem 7: 07/01/21 06:37 07/01/21 06:37 Labs: Abnormal Lab Results - Last 24 Hours (Table) 07/01/21 07/01/21 Range/Units 06:37 06:37 RBC 3.80 L (4.30-5.90) m/uL Hgb 10.9 L (13.0-17.5) gm/dL Hct 33.5 L (39.0-53.0) % Plt Count 625 H (150-450) k/uL Sodium 131 L (137-145) mmol/L Calcium 8.0 L (8.4-10.2) mg/dL ALT 79 H (4-49) U/L Total Protein 5.5 L (6.3-8.2) g/dL Albumin 2.4 L (3.5-5.0) g/dL Microbiology - Last 24 Hours (Table) 07/01/21 06:30 Sputum Culture - Preliminary Sputum 06/30/21 14:03 Nasal Screen MRSA/MSSA - Preliminary Nasal Swab 06/29/21 19:24 Blood Culture - Preliminary Blood No Growth after 24 hours 06/29/21 15:40 Blood Culture - Preliminary Blood No Growth after 24 hours
[2021-07-01] MEDS: carvediloL 3.125 MG TAB PO SCH (20:47)
[2021-07-01] MEDS: ATORVASTATIN 40 MG TAB PO SCH (20:47)
[2021-07-01] MEDS ORDERED: VANCOMYCIN TROUGH DUE 1 EACH MISC MISCELLANE ONE (22:00)
--- NOTE | 2021-07-01 23:49 | P.CONS ---
History of Present Illness - Reason for Consult Consult date: 07/01/21 Pneumonia Requesting physician: Rama Washington - Chief Complaint Shortness of breath and fever x few days - History of Present Illness Patient is a 56-year male with a past medical history significant for smoking and COPD in this patient who was recently admitted at this facility with concern for pneumonia patient is status post bronchoscopy and the culture did show some Jacey patient was subsequent discharged home on oral antibiotics by the admitting team patient is presenting back to the hospital within 72-hour for evaluation of increasing shortness of breath and patient also developed a fever of 100.9 degrees formulae patient complaining of increased shortness of breath on minimal exertion even at rest patient also have a cough and is bringing up some greenish sputum no hemoptysis no pleuritic chest pain patient denies any nausea no vomiting no choking on food no abdominal pain or any diarrhea patient on presentation to the hospital did have a fever of 101.4 F patient did have white count of 12.03 kidney function has been normal HIV testing has been negative sputum has been obtained which is currently pending blood cultures currently pending patient is currently being treated with Zosyn and vancomycin infectious disease was consulted for further management of antibiotic therapy Review of Systems Positive point has been mentioned in the HPI rest of the systems are negative 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, takes saboxone Last Myocardial Infarction Date:: 2008 History of Any Multi-Drug Resistant Organisms: None Reported Past Surgical History: Heart Catheterization, Heart Catheterization With Stent, Hernia Repair, Pacemaker Additional Past Surgical History / Comment(s): CARPAL TUNNEL BILATERAL, Heart cath 9 times with 5 stents Past Anesthesia/Blood Transfusion Reactions: No Reported Reaction Date of Last Stent Placement:: 2010 Type of Cardiac Device: Permanent Pacemaker, AICD Device Placement Date:: 2008 Past Psychological History: No Psychological Hx Reported Smoking Status: Current every day smoker Past Alcohol Use History: None Reported Additional Past Alcohol Use History / Comment(s): half pack a day smoker Past Drug Use History: None Reported - Past Family History Father Family Medical History: No Reported History Mother Family Medical History: Myocardial Infarction (LA) Medications and Allergies Home Medications Medication Instructions Recorded Confirmed Type Buprenorphine HCl/Naloxone HCl 1.5 film SL DAILY 03/13/15 06/29/21 History [Suboxone 8 mg-2 mg Sl Film] Aspirin [Adult Low Dose Aspirin EC] 81 tab PO DAILY 03/28/17 06/29/21 History Albuterol Inhaler [Ventolin Hfa 2 puff INHALATION RT-QID PRN 06/19/21 06/29/21 History Inhaler] Atorvastatin [Lipitor] 40 mg PO HS 06/19/21 06/29/21 History Fluticasone/Umeclidin/Vilanter 1 puff INHALATION RT-DAILY 06/19/21 06/29/21 History [Trelegy Ellipta 200-62.5-25] Nicotine 21Mg/24Hr Patch [Habitrol] 1 patch TRANSDERM DAILY 06/19/21 06/29/21 History Amoxicillin/Potassium Clav 1 tab PO Q12HR 5 Days #10 tab 06/26/21 06/29/21 Rx [Augmentin 875-125 Tablet] carvediloL [Coreg] 3.125 mg PO HS 06/29/21 06/29/21 History Allergies Allergy/AdvReac Type Severity Reaction Status Date / Time clopidogrel bisulfate Allergy Dyspnea,HIV Verified 06/29/21 17:33 [From Plavix] ES,SWELLING Physical Exam Vitals: Vital Signs Temp Pulse Pulse Resp BP Pulse Ox Pulse Ox 07/01/21 09:31 109 H 07/01/21 07:00 99.7 F H 116 H 16 96/64 91 L 07/01/21 00:16 98.6 F 99 16 94/63 93 L 06/30/21 19:45 99.4 F 103 H 18 108/69 93 L 06/30/21 19:35 18 06/30/21 16:33 108 H 18 06/30/21 16:22 101 H 16 96 06/30/21 16:17 98.4 F 06/30/21 15:00 100.8 F H 112 H 18 102/67 95 06/30/21 11:33 70 16 06/30/21 11:23 72 16 06/30/21 10:28 92 L Pulse Ox Pulse Ox 07/01/21 09:31 07/01/21 07:00 07/01/21 00:16 06/30/21 19:45 06/30/21 19:35 06/30/21 16:33 06/30/21 16:22 06/30/21 16:17 06/30/21 15:00 06/30/21 11:33 06/30/21 11:23 06/30/21 10:28 85 L 78 L Intake and Output 06/30/21 07/01/21 07/01/21 22:59 06:59 14:59 Intake Total 120 118 Balance 120 118 Intake: Oral 120 118 Other: Voiding Method Toilet # Voids 2 GENERAL DESCRIPTION: Middle-aged male lying in bed, no distress. No tachypnea or accessory muscle of respiration use. HEENT: Shows Pallor , no scleral icterus. Oral mucous membrane is dry. No pharyngeal erythema or thrush NECK: Trachea central, no thyromegaly. LUNGS: Unlabored breathing. Coarse breath sounds bilaterally HEART: S1, S2, regular rate and rhythm. No loud murmur ABDOMEN: Soft, no tenderness , guarding or rigidity, no organomegaly EXTREMITIES: No edema of feet. SKIN: No rash, no masses palpable. NEUROLOGICAL: The patient is awake, alert, oriented x3, mood and affect normal. Results CBC & Chem 7: 07/01/21 06:37 07/01/21 06:37 Labs: Abnormal Lab Results - Last 24 Hours (Table) 06/30/21 06/30/21 07/01/21 Range/Units 07:33 07:33 06:37 WBC 12.03 H (4.50-10.00) X 10*3/uL RBC 4.06 L 3.80 L (4.40-5.60) X 10*6/uL Hgb 11.1 L 10.9 L (13.0-17.0) g/dL Hct 35.0 L 33.5 L (39.6-50.0) % MCHC 31.7 L (32.0-37.0) g/dL RDW 14.7 H (11.5-14.5) % Plt Count 629 H 625 H (140-440) X 10*3/uL Sodium (137-145) mmol/L BUN/Creatinine Ratio 22.11 H (12.00-20.00) Ratio Calcium (8.4-10.2) mg/dL ALT (4-49) U/L Total Protein (6.3-8.2) g/dL Albumin (3.5-5.0) g/dL 07/01/21 Range/Units 06:37 WBC (4.50-10.00) X 10*3/uL RBC (4.40-5.60) X 10*6/uL Hgb (13.0-17.0) g/dL Hct (39.6-50.0) % MCHC (32.0-37.0) g/dL RDW (11.5-14.5) % Plt Count (140-440) X 10*3/uL Sodium 131 L (137-145) mmol/L BUN/Creatinine Ratio (12.00-20.00) Ratio Calcium 8.0 L (8.4-10.2) mg/dL ALT 79 H (4-49) U/L Total Protein 5.5 L (6.3-8.2) g/dL Albumin 2.4 L (3.5-5.0) g/dL Microbiology - Last 24 Hours (Table) 06/30/21 14:03 Nasal Screen MRSA/MSSA - Preliminary Nasal Swab 06/29/21 19:24 Blood Culture - Preliminary Blood No Growth after 24 hours 06/29/21 15:40 Blood Culture - Preliminary Blood No Growth after 24 hours Assessment and Plan (1) Febrile illness, acute Current Visit: Yes Status: Acute Code(s): R50.9 - FEVER, UNSPECIFIED SNOMED Code(s): 370664984 (2) Pneumonia Current Visit: Yes Status: Acute Code(s): J18.9 - PNEUMONIA, UNSPECIFIED ORG ANISM SNOMED Code(s): 223834876 Plan: 1patient presented to hospital with a fever increasing shortness of breath and this patient was recently diagnosed with the right-sided pneumonia status post bronchoscopy and was culture showed Jacey unlikely colonizer not failing outpatient oral antibiotic therapy. 2sputum cultures obtained will be followed we will check urine for Legionella antigen 3continue with the Zosyn however discontinue vancomycin decrease risk of nephrotoxicity and add Levaquin 4we will check inflammatory markers and procalcitonin We will follow on clinical condition and cultures to further adjust medication if needed Thank you for this consultation will follow this patient along with you
[2021-07-02] MEDS: PIPERACILLIN-TAZOBACTAM 3.375 GM in SODIUM CHLORIDE 0.9% 100 ML IVPB SCH ×3 (00:13→16:06)
[2021-07-02] MEDS: HEPARIN SODIUM,PORCINE/PF 5,000 UNIT/0.5 ML SYRINGE SQ SCH ×3 (00:13→16:05)
[2021-07-02 06:24] LABS: African American GFR (CKD) >90 (>60 ml/min/1.73 sqM); Anion Gap 8 mmol/L; Blood Urea Nitrogen 17 mg/dL (9-20); Calcium 7.9 mg/dL (8.4-10.2); Carbon Dioxide 25 mmol/L (22-30); Chloride 97 mmol/L (98-107); Glucose 101 mg/dL (74-99); Non-African American GFR(CKD) >90 (>60 ml/min/1.73 sqM); Potassium 4.3 mmol/L (3.5-5.1); Sodium 130 mmol/L (137-145)
[2021-07-02 06:46] LABS: C Reactive Protein 20.8 mg/dL (<1.0)
[2021-07-02] MEDS: IPRATROPIUM-ALBUTEROL 3 ML NEB INHALATION PRN (07:38)
[2021-07-02] MEDS: SYMBICORT 80-4.5 MCG INHALER INHALATION SCH ×2 (07:38→19:36)
[2021-07-02] MEDS: IPRATROPIUM 0.5 MG/2.5 ML NEBU INHALATION SCH ×4 (07:43→19:37)
[2021-07-02] MEDS: NON FORMULARY DRUG (Buprenorphine Hcl/Naloxone Hcl [Suboxone 8 Mg-2 Mg Sl Film] 1 EACH Fil SUBLINGUAL SCH (07:58)
[2021-07-02] MEDS: ACETAMINOPHEN TAB 325 MG TAB PO PRN ×3 (08:12→20:16)
[2021-07-02] MEDS: ASPIRIN 81 MG PO SCH (08:14)
[2021-07-02] MEDS: LEVOFLOXACIN 750 MG TAB PO SCH (08:14)
[2021-07-02] MEDS: NICOTINE 21MG/24HR PATCH TRANSDERM SCH (08:14)
[2021-07-02] MEDS: FUROSEMIDE 40 MG TAB PO SCH (08:14)
[2021-07-02 09:15] LABS: HCT 29.7 % (39.6-50.0); HGB 9.3 g/dL (13.0-17.0); MCH 27.1 pg (27.0-32.0); MCHC 31.3 g/dL (32.0-37.0); MCV 86.6 fL (80.0-97.0); Mean Platelet Volume 9.6 fL (9.5-12.2); NRBC Per 100 WBC 0 /100 WBCS (0.0-0.0); Platelet Count 539 X 10*3/uL (140-440); RBC 3.43 X 10*6/uL (4.40-5.60); RDW 14.7 % (11.5-14.5); WBC 12.31 X 10*3/uL (4.50-10.00)
--- NOTE | 2021-07-02 10:06 | P.PN ---
Subjective Progress Note Date: 07/02/21 Pt seen today without oxygen on, saturating 87-88%, counseled on importance of O2 use. Pending [id number] level. Ongoing fevers. Objective - Vital Signs Vital signs: Vital Signs Temp 100.3 F H 07/02/21 08:22 Pulse 113 H 07/02/21 08:22 Resp 18 07/02/21 08:22 BP 100/66 07/02/21 08:22 Pulse Ox 88 L 07/02/21 08:22 Intake & Output 07/01/21 07/02/21 07/02/21 18:59 06:59 18:59 Intake Total 118 118 Balance 118 118 Intake: Oral 118 118 Other: Voiding Method Toilet Toilet Toilet # Voids 3 2 - Exam Gen: awake, alert HEENT: normocephalic, atraumatic, good hearing acuity, moist mucous membranes Resp: impaired air exchange, breathing comfortably with no accessory muscle use CVS: good distal perfusion x 4, GI: soft, NTTP, ND : no SPT, no CVAT, sung catheter not present MSK: no pitting edema, no clubbing Neuro: non-focal, moving all extremities Psych: cooperative, euthymic mood - Labs CBC & Chem 7: 07/02/21 05:19 07/02/21 05:19 Labs: Abnormal Lab Results - Last 24 Hours (Table) 07/01/21 07/02/21 07/02/21 Range/Units 06:37 05:19 05:19 WBC 12.31 H (4.50-10.00) X 10*3/uL RBC 3.43 L (4.40-5.60) X 10*6/uL Hgb 9.3 L (13.0-17.0) g/dL Hct 29.7 L (39.6-50.0) % MCHC 31.3 L (32.0-37.0) g/dL RDW 14.7 H (11.5-14.5) % Plt Count 539 H (140-440) X 10*3/uL Sodium 130 L (137-145) mmol/L Chloride 97 L (98-107) mmol/L Creatinine 0.57 L (0.66-1.25) mg/dL Glucose 101 H (74-99) mg/dL Calcium 7.9 L (8.4-10.2) mg/dL C-Reactive Protein 20.8 H (<1.0) mg/dL [id number] 336.0 H (99.0-242.0) mg/dL Procalcitonin (0.02-0.09) ng/mL 07/02/21 Range/Units 05:19 WBC (4.50-10.00) X 10*3/uL RBC (4.40-5.60) X 10*6/uL Hgb (13.0-17.0) g/dL Hct (39.6-50.0) % MCHC (32.0-37.0) g/dL RDW (11.5-14.5) % Plt Count (140-440) X 10*3/uL Sodium (137-145) mmol/L Chloride (98-107) mmol/L Creatinine (0.66-1.25) mg/dL Glucose (74-99) mg/dL Calcium (8.4-10.2) mg/dL C-Reactive Protein (<1.0) mg/dL Ensdu-7-Jwhuzwmebhn (99.0-242.0) mg/dL Procalcitonin 0.56 H (0.02-0.09) ng/mL Microbiology - Last 24 Hours (Table) 07/01/21 06:30 Gram Stain - Preliminary Sputum Sputum Culture - Preliminary 06/29/21 19:24 Blood Culture - Preliminary Blood No Growth after 48 hours 06/30/21 14:03 Nasal Screen MRSA/MSSA - Final Nasal Swab 06/29/21 15:40 Blood Culture - Preliminary Blood No Growth after 48 hours Assessment and Plan Assessment: Pneumonia, failed outpatient treatment with sepsis AE COPD Acute on chronic hypoxic respiratory failure - levoquin/zosyn - Await cultures. - Beta D glucan, MRSA nasal swab are both pending - HIV negative - Pulm and ID recs - Bronchodilators - pulm hygeine - Blood cultures negative to date. Acute exacerbation of systolic CHF with EF 30-35 % ASCAD - Oral Lasix - ASA, lipitor, BB - entresto on hold due to recent hypotension on last hospital stay. 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 Thrombocytosis - chronic at baseline - follow CBC Tobacco abuse - cessation - nicotine replacement if needed Underweight with BMI 18.2 - dietitian recs DVT prophylaxis: heparin Discussed with: Patient, nursing Anticipated discharge: in 3-[address]: home A total of 37 minutes was spent on the care of this complex patient more than 50% of the time was spent in counseling and care coordination.
--- NOTE | 2021-07-02 11:03 | P.PN ---
<Kathie Sehffield M - Last Filed: 07/02/21 10:49> Subjective Progress Note Date: 07/02/21 Principal diagnosis: swelling in BLE 56-year-old male patient with known history of COPD, chronic smoker, CAD, paroxysmal A. fib status post pacemaker insertion, chronic CHF with systolic dysfunction, ischemic cardiomyopathy with EF of 30-35% with AICD placement, anxiety who was recently hospitalized for acute exacerbation of COPD, complicated with possible pneumonia. Patient's chest x-ray showed bilateral airspace disease, underlying emphysema. CT angiogram of the chest showed no evidence of pulmonary embolism, extensive bullous pulmonary emphysema, with extensive honeycombing infiltrate in the mid and upper lung hendricks. Patient was treated with a combination of Rocephin and Zithromax initially, however he continued to have intermittent febrile episodes and subsequently he was switched to Zosyn by infectious disease service. Patient ended up having bronchoalveolar lavage on 06/24/[address] Ulloa, and BAL cultures showed no growth other than Jacey albicans. A separate BAL cultures were taken from right upper lobe and left lower lobe, cytology was negative for diagnostic malignancy. BAL cultures and viral cultures were negative. Patient was clinically improving, after being switched over to Zosyn patient's fever pattern had improved, and subsequently he was discharged home on oral course of Augmentin, and we recommended at least 2 week treatment with Augmentin, completion of prednisone taper and patient was sent home on home oxygen at 4 L. Patient states he was discharged on a Tuesday, by Tuesday night he started having increased swelling in his lower extremities, he could hardly get his socks on. At the same time he started developing a fever. He states he picked up his antibiotics and was taking them, he denied any worsening shortness of breath, no cough, no phlegm production, no hemoptysis no chest pain. No swelling or tenderness in the bilateral calves. He came into the emergency department for reevaluation on 06/29/2021. His temperature on admission was 101.4F. Chest x-ray showed findings similar to the prior exam with bilateral airspace disease, increased interstitium and underlying emphysema. Admission labs showed white blood cell count of 14.3, hemoglobin 12.4, sodium is 133, the rest of electrolytes were unremarkable, B1 is 16 creatinine 0.55, proBNP was 1520, troponin was 0.017, AST was 46, ALT was 158, alk phos was 146, urinalysis showed no evidence of infection, patient tested negative for COVID 19. Patient was started on vanc omycin for antibiotic coverage, and Zosyn. He was started on oral Lasix after a single dose of IV Lasix 40 mg. Currently ankle edema is improving, he is diuresing, he continues on the bronchodilators. On 07/01/2021 patient seen in follow-up on medical surgical floor, he states he is breathing comfortably, he is currently on 2 L of oxygen his pulse ox is 91- 93%. His ankle swelling is significantly down, this morning patient was able to produce a sputum specimen which was sent for culture, follow-up chest x-ray today showing confluent densities in the upper lobes, and worsening pneumonia. Patient currently remains on Zosyn and vancomycin. No fever or chills overnight. White blood cell count is 10.6, hemoglobin is 10.9, sodium is 131, the rest of the electrolytes and renal profile were unremarkable, LFTs are improved. No chest discomfort, no hemoptysis. Patient continues on nebulized bronchodilators, he is on oral dose of Lasix 40 mg daily. On 07/02/2021 patient seen in follow-up on medical surgical floor. He is still having intermittent fevers, T-max in last 24 hours 101.8F, patient was initially covered with a combination of Zosyn and vancomycin, ID service recommended discontinuing vancomycin and patient is currently on Zosyn and Levaquin has been added. Urine for Legionella antigen will be sent. Cultures reviewed, blood cultures have been negative, sputum Gram stain showing rare PMNs, few gram-positive cocci in clusters, few budding yeast. BAL cultures showed Jacey albicans. Today's labs reviewed, with blood cell count 12.3, hemoglobin is 9.3, sodium is 1:0, potassium is 4.3, B1 17 creatinine 0.57, CRP is 20.8, and pro-calcitonin level was 0.56. No worsening cough or hemoptysis, no chest pain, no altered mentation, hemodynamically has been stable, he has been tolerating ambulation in the room. Lower extremity swelling has significantly improved, patient remains on once daily dose of Lasix. Objective - Vital Signs Vital signs: Vital Signs Temp 100.3 F H 07/02/21 08:22 Pulse 113 H 07/02/21 08:22 Resp 18 07/02/21 08:22 BP 100/66 07/02/21 08:22 Pulse Ox 88 L 07/02/21 08:22 Intake & Output 07/01/21 07/02/21 07/02/21 18:59 06:59 18:59 Intake Total 118 118 Balance 118 118 Intake: Oral 118 118 Other: Voiding Method Toilet Toilet Toilet # Voids 3 2 - Exam GENERAL EXAM: Alert, very pleasant, 56-year-old white female, on 2 L of oxygen pulse ox of 91-93%, comfortable in no apparent distress. HEAD: Normocephalic/atraumatic. EYES: Normal reaction of pupils, equal size. Conjunctiva pink, sclera white. NOSE: Clear with pink turbinates. THROAT: No erythema or exudates. NECK: No masses, no JVD, no thyroid enlargement, no adenopathy. CHEST: No chest wall deformity. Symmetrical expansion. LUNGS: Equal air entry with no crackles, wheeze, rhonchi or dullness. CVS: Regular rate and rhythm, normal S1 and S2, no gallops, no murmurs, no rubs ABDOMEN: Soft, nontender. No hepatosplenomegaly, normal bowel sounds, no guarding or rigidity. EXTREMITIES: No clubbing, no edema, no cyanosis, 2+ pulses and upper and lower extremities. MUSCULOSKELETAL: Muscle strength and tone normal. SPINE: No scoliosis or deformity SKIN: No rashes CENTRAL NERVOUS SYSTEM: Alert and oriented -3. No focal deficits, tone is normal in all 4 extremities. PSYCHIATRIC: Alert and oriented -3. Appropriate affect. Intact judgment and insight. - Labs CBC & Chem 7: 07/02/21 05:19 07/02/21 05:19 Labs: Abnormal Lab Results - Last 24 Hours (Table) 07/01/21 07/02/21 07/02/21 Range/Units 06:37 05:19 05:19 WBC 12.31 H (4.50-10.00) X 10*3/uL RBC 3.43 L (4.40-5.60) X 10*6/uL Hgb 9.3 L (13.0-17.0) g/dL Hct 29.7 L (39.6-50.0) % MCHC 31.3 L (32.0-37.0) g/dL RDW 14.7 H (11.5-14.5) % Plt Count 539 H (140-440) X 10*3/uL Sodium 130 L (137-145) mmol/L Chloride 97 L (98-107) mmol/L Creatinine 0.57 L (0.66-1.25) mg/dL Glucose 101 H (74-99) mg/dL Calcium 7.9 L (8.4-10.2) mg/dL C-Reactive Protein 20.8 H (<1.0) mg/dL Gfhah-4-Uwlopnwdqcz 336.0 H (99.0-242.0) mg/dL Procalcitonin (0.02-0.09) ng/mL 07/02/21 Range/Units 05:19 WBC (4.50-10.00) X 10*3/uL RBC (4.40-5.60) X 10*6/uL Hgb (13.0-17.0) g/dL Hct (39.6-50.0) % MCHC (32.0-37.0) g/dL RDW (11.5-14.5) % Plt Count (140-440) X 10*3/uL Sodium (137-145) mmol/L Chloride (98-107) mmol/L Creatinine (0.66-1.25) mg/dL Glucose (74-99) mg/dL Calcium (8.4-10.2) mg/dL C-Reactive Protein (<1.0) mg/dL Hooam-2-Vulsdoxyweb (99.0-242.0) mg/dL Procalcitonin 0.56 H (0.02-0.09) ng/mL Microbiology - Last 24 Hours (Table) 07/01/21 06:30 Gram Stain - Preliminary Sputum Sputum Culture - Preliminary 06/29/21 19:24 Blood Culture - Preliminary Blood No Growth after 48 hours 06/30/21 14:03 Nasal Screen MRSA/MSSA - Final Nasal Swab 06/29/21 15:40 Blood Culture - Preliminary Blood No Growth after 48 hours Assessment and Plan Plan: Assessment: #1. Persistent fever, despite antibiotics, rule out bacteremia, blood cultures have been sent, current coverage with Zosyn and Levaquin. COVID-19 PCR was negative. Vancomycin has been discontinued #2. Bilateral upper lobe pneumonia, stable on the chest x-ray, status post recent bronchoscopy with BAL on 06/24/2021, and BAL cultures were negative, viral cultures have been negative, COVID-19 PCR was negative #3. Recent hospitalization for acute exacerbation of COPD, and bilateral pneumonia, discharged home on 06/25/2021 to complete 2 week course of Augmentin #4. Bullous emphysema/COPD, on home oxygen since the recent hospitalization on 4 L #5. Increased swelling in bilateral lower extremities, possibly related to acute exacerbation of systolic CHF #6. Prior history of myocardial infarction #7. History of paroxysmal A. fib status post AICD and pacemaker insertion #8. CAD with prior stenting #9. History of CHF with systolic dysfunction #10. Ischemic cardiomyopathy with EF of 30-35% #11. History of laparoscopic bilateral inguinal hernia repair #12. 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 History of anxiety Plan: Patient continues to have persistent fevers despite antibiotics Levaquin has been added, vancomycin discontinued BAL cultures only showed Jacey albicans Procalcitonin level elevated suggesting presence of bacterial infection Send a urine Legionella antigen Continue breathing treatments Will monitor his fever pattern, and clinical symptoms I have personally seen and examined the patient, performed the documentation and the assessment and plan as written. Number of minutes spent on the visit: [15] Time with Patient: Less than 30 <Marisol Lundberg - Last Filed: 07/03/21 15:35> Objective - Vital Signs Vital signs: Vital Signs Temp 98.2 F 07/03/21 13:53 Pulse 108 H 07/03/21 13:53 Resp 16 07/03/21 13:53 BP 94/59 07/03/21 13:53 Pulse Ox 95 07/03/21 13:53 Intake & Output 07/02/21 07/03/21 07/03/21 18:59 06:59 18:59 Intake Total 354 838 Balance 354 838 Weight 52.617 kg Intake: Oral 354 838 Other: Voiding Method Toilet Toilet # Voids 3 2 1 - Labs CBC & Chem 7: 07/02/21 05:19 07/02/21 05:19 Labs: Microbiology - Last 24 Hours (Table) 07/01/21 06:30 Gram Stain - Final Sputum Sputum Culture - Final 07/02/21 05:19 Blood Culture - Preliminary Blood No Growth after 24 hours 06/29/21 19:24 Blood Culture - Preliminary Blood No Growth after 72 hours 06/29/21 15:40 Blood Culture - Preliminary Blood No Growth after 72 hours Assessment and Plan Plan: I have personally seen and examined the patient and reviewed the documentation. I performed a joint evaluation with the nurse practitioner in this evaluation was done more than 20 minutes. I fully agree with the documentation above and the plan of CARE.
[2021-07-02] MEDS ORDERED: RX INFO: IV CONTRAST WAS GIVEN 1 EACH MISC MISCELLANE PRN (12:26)
--- NOTE | 2021-07-02 14:36 | CT ---
EXAMINATION TYPE: CT chest wo con DATE OF EXAM: 07/02/2021 INDICATION: pneumonia CT DLP: 199.0 mGy.cm Automated Exposure Control for Dose Reduction was Utilized. TECHNIQUE AND CONTRAST: Multiplanar CT scan of the chest without IV contrast demonstration. COMPARISON: CT dated 06/19/2021 FINDINGS: Background of severe COPD changes and severe emphysematous changes, predominantly centrilobular and p araseptal. Evident interval progression of the previously seen thick consolidation involving the righ t upper lobe with more consolidation also seen in the left upper lobe, medial aspect of the left lowe r lobe and medial aspect of the right lower lobe. Minimal infiltration is also seen in the middle lob e. The lingula is rather preserved. This is concerning for a progressive pneumonia. Underlying lesion cannot be excluded. Patent trachea and main bronchi. Stable 6 mm right lung base nodule. The more superior right lower lobe 6 mm spiculated nodule (image 44, series 4) is also stable. No pleural effusion. No gross cardiomegaly. Coronary arterial atheroscl erotic calcifications. Left upper chest wall single lead pacemaker. Small pericardial fluid. Enlarged aortopulmonary lymph node measuring up to 16mm with 13 mm subcarinal lymph node and scattere d smaller mediastinal lymph nodes. Hilar lymph nodes are suboptimally assessed. Attention on follow-u p. Air is seen between the liver and the right kidney, possibly representing portion of the colon, in completely included in the scan. Scattered arterial atherosclerotic calcifications. No aggressive bon e lesion. IMPRESSION: Background of severe COPD as described above. Findings are consistent with progressive pulmonary cons olidation, likely representing progressive pneumonia, please correlate clinically. Underlying lesion cannot be excluded. Follow-up to complete resolution is advised. Enlarged lymph nodes, likely reactiv e, attention on follow-up. Other incidental findings as described above.
[2021-07-02] MEDS: NYSTATIN 100,000 UNIT/ML SUSP 500,000 UNIT/5 ML CUP PO SCH ×2 (18:03→20:51)
[2021-07-02] MEDS: carvediloL 3.125 MG TAB PO SCH (20:16)
[2021-07-02] MEDS: ATORVASTATIN 40 MG TAB PO SCH (20:16)
--- NOTE | 2021-07-03 00:05 | P.PN ---
Subjective Progress Note Date: 07/02/21 Principal diagnosis: Pneumonia Patient is a 56-year-old male who was recently admitted to the hospital and was diagnosed with pneumonia status post bronchoscopy and those culture were negative patient was subsequently discharged home on oral antibiotics and currently admitted to the hospital within 72 hours with a fever. On today's evaluation that is grade 07/02/2021, the patient fever pattern has improved and did have a low-grade fever of 100.3F this morning, the patient is feeling slightly better, the patient denies having any chest pain he did have a cough with occasional sputum no hemoptysis no nausea no vomiting no abdominal pain and no diarrhea Objective - Vital Signs Vital signs: Vital Signs Temp 100.3 F H 07/02/21 08:22 Pulse 113 H 07/02/21 08:22 Resp 18 07/02/21 08:22 BP 100/66 07/02/21 08:22 Pulse Ox 88 L 07/02/21 08:22 Intake & Output 07/01/21 07/02/21 07/02/21 18:59 06:59 18:59 Intake Total 118 118 Balance 118 118 Intake: Oral 118 118 Other: Voiding Method Toilet Toilet Toilet # Voids 3 2 - Exam GENERAL DESCRIPTION: Middle-aged male lying in bed in no distress RESPIRATORY SYSTEM: Unlabored breathing , decreased breath sounds at bases HEART: S1 S2 regular rate and rhythm , ABDOMEN: Soft , no tenderness EXTREMITIES: No edema feet - Labs CBC & Chem 7: 07/02/21 05:19 07/02/21 05:19 Labs: Abnormal Lab Results - Last 24 Hours (Table) 07/01/21 07/02/21 07/02/21 Range/Units 06:37 05:19 05:19 WBC 12.31 H (4.50-10.00) X 10*3/uL RBC 3.43 L (4.40-5.60) X 10*6/uL Hgb 9.3 L (13.0-17.0) g/dL Hct 29.7 L (39.6-50.0) % MCHC 31.3 L (32.0-37.0) g/dL RDW 14.7 H (11.5-14.5) % Plt Count 539 H (140-440) X 10*3/uL Sodium 130 L (137-145) mmol/L Chloride 97 L (98-107) mmol/L Creatinine 0.57 L (0.66-1.25) mg/dL Glucose 101 H (74-99) mg/dL Calcium 7.9 L (8.4-10.2) mg/dL C-Reactive Protein 20.8 H (<1.0) mg/dL Xqgzd-5-Kwavhzdocng 336.0 H (99.0-242.0) mg/dL Procalcitonin (0.02-0.09) ng/mL 07/02/21 Range/Units 05:19 WBC (4.50-10.00) X 10*3/uL RBC (4.40-5.60) X 10*6/uL Hgb (13.0-17.0) g/dL Hct (39.6-50.0) % MCHC (32.0-37.0) g/dL RDW (11.5-14.5) % Plt Count (140-440) X 10*3/uL Sodium (137-145) mmol/L Chloride (98-107) mmol/L Creatinine (0.66-1.25) mg/dL Glucose (74-99) mg/dL Calcium (8.4-10.2) mg/dL C-Reactive Protein (<1.0) mg/dL Gmggc-5-Hwantvbiysd (99.0-242.0) mg/dL Procalcitonin 0.56 H (0.02-0.09) ng/mL Microbiology - Last 24 Hours (Table) 07/01/21 06:30 Gram Stain - Preliminary Sputum Sputum Culture - Preliminary 06/29/21 19:24 Blood Culture - Preliminary Blood No Growth after 48 hours 06/30/21 14:03 Nasal Screen MRSA/MSSA - Final Nasal Swab 06/29/21 15:40 Blood Culture - Preliminary Blood No Growth after 48 hours Assessment and Plan (1) Febrile illness, acute Current Visit: Yes Status: Acute Code(s): R50.9 - FEVER, UNSPECIFIED SNOMED Code(s): 176918426 (2) Pneumonia Current Visit: Yes Status: Acute Code(s): J18.9 - PNEUMONIA, UNSPECIFIED ORGANISM SNOMED Code(s): 694398747 Plan: 1patient presented to hospital with a fever increasing shortness of breath and this patient was recently diagnosed with the right-sided pneumonia status post bronchoscopy and was culture showed Jacey likely colonizer, failing outpatient oral antibiotic therapy. 2sputum cultures obtained will be followed we will check urine for Legionella antigen 3continue with the Zosyn and Levaquin [address] of the chest if any worsening findings may benefit from repeat bronchoscopy and culture this was discussed with the admitting and pulmonary team Time with Patient: Less than 30
[2021-07-03] MEDS: ACETAMINOPHEN TAB 325 MG TAB PO PRN ×2 (02:13→18:10)
[2021-07-03] MEDS: PIPERACILLIN-TAZOBACTAM 3.375 GM in SODIUM CHLORIDE 0.9% 100 ML IVPB SCH ×4 (07:46→19:13)
[2021-07-03] MEDS: NYSTATIN 100,000 UNIT/ML SUSP 500,000 UNIT/5 ML CUP PO SCH ×4 (07:51→20:23)
[2021-07-03] MEDS: HEPARIN SODIUM,PORCINE/PF 5,000 UNIT/0.5 ML SYRINGE SQ SCH ×4 (07:51→22:12)
[2021-07-03] MEDS: NICOTINE 21MG/24HR PATCH TRANSDERM SCH (07:52)
[2021-07-03] MEDS: IPRATROPIUM 0.5 MG/2.5 ML NEBU INHALATION SCH ×4 (08:01→20:41)
[2021-07-03] MEDS: SYMBICORT 80-4.5 MCG INHALER INHALATION SCH ×2 (08:01→20:41)
--- NOTE | 2021-07-03 09:41 | P.PN ---
Subjective Progress Note Date: 07/03/21 No new complaints today. Still spiking low grade fevers overnight to 100.6. Pending Fungitell. No bronch planned today. CT chest appears worse yesterday than previous admission. Objective - Vital Signs Vital signs: Vital Signs Temp 99.3 F 07/03/21 03:05 Pulse 104 H 07/03/21 02:01 Resp 18 07/03/21 08:00 BP 99/60 07/03/21 02:01 Pulse Ox 87 L 07/03/21 02:01 Intake & Output 07/02/21 07/03/21 07/03/21 18:59 06:59 18:59 Intake Total 354 Balance 354 Weight 52.617 kg Intake: Oral 354 Other: Voiding Method Toilet Toilet # Voids 3 2 - Exam Gen: awake, alert HEENT: normocephalic, atraumatic, good hearing acuity, moist mucous membranes Resp: impaired air exchange, breathing comfortably with no accessory muscle use CVS: good distal perfusion x 4, GI: soft, NTTP, ND : no SPT, no CVAT, sung catheter not present MSK: no pitting edema, no clubbing Neuro: non-focal, moving all extremities Psych: cooperative, euthymic mood - Labs CBC & Chem 7: 07/02/21 05:19 07/02/21 05:19 Labs: Abnormal Lab Results - Last 24 Hours (Table) 07/02/21 Range/Units 05:19 Procalcitonin 0.56 H (0.02-0.09) ng/mL Microbiology - Last 24 Hours (Table) 07/01/21 06:30 Gram Stain - Final Sputum Sputum Culture - Final 07/02/21 05:19 Blood Culture - Preliminary Blood No Growth after 24 hours 06/29/21 19:24 Blood Culture - Preliminary Blood No Growth after 72 hours 06/29/21 15:40 Blood Culture - Preliminary Blood No Growth after 72 hours Assessment and Plan Assessment: Pneumonia, failed outpatient treatment with sepsis AE COPD Acute on chronic hypoxic respiratory failure - levoquin/zosyn - PICC line pending 07/03 - Await cultures. - Beta D glucan, pending - MRSA negative - HIV negative - Pulm and ID recs - Bronchodilators - pulm hygeine - Blood cultures negative to date. Acute exacerbation of systolic CHF with EF 30-35 % ASCAD - Oral Lasix - ASA, lipitor, BB - entresto on hold due to recent hypotension on last hospital stay. Patient plans on following up with his primary office automation clerk regarding this. Thrombocytosis - chronic at baseline - follow CBC Tobacco abuse - cessation - nicotine replacement if needed Underweight with BMI 18.2 - dietitian recs DVT prophylaxis: heparin Anticipated discharge: in 3-[address]: home
[2021-07-03] MEDS: LEVOFLOXACIN 750 MG TAB PO SCH (11:30)
[2021-07-03] MEDS: FUROSEMIDE 40 MG TAB PO SCH (11:30)
[2021-07-03] MEDS: ASPIRIN 81 MG PO SCH (11:30)
--- NOTE | 2021-07-03 12:30 | IR ---
EXAMINATION TYPE: IR cvc insert >=5 years DATE OF EXAM: 07/03/2021 COMPARISON: NONE CLINICAL HISTORY: Infection Needs long-term intravenous access for antibiotics. PROCEDURE: Hand hygiene obtained with soap and water and alcohol-based hand rub. After informed consent, the skin overlying the right basilic vein was localized with ultrasound and n oted to be compressible and patent. An ultrasound image was obtained and submitted on the patient's chart. The overlying skin was prepped and draped and Lidocaine was used for local anesthesia. A ski n baron was made with a scalpel. Access was gained to the vein under ultrasound guidance with a 21 ga uge needle and a 0.018 inch wire was advanced. Access site was dilated with Peel-Away sheath and cat heter tailored to the appropriate length and advanced such that the distal tip is at the cavoatrial j unction. Spot image was obtained verifying placement. Catheter was fixed to the skin and a sterile dressing was placed following hemostasis. Catheter was aspirated and flushed with saline. Patient w as discharged in stable condition without complication.Maximal barrier technique is utilized. Ultras ound image is documented on the chart. Ultrasound used with sterile technique. Fluoro time and fluoroscopic images submitted to document procedure: 57 intraoperative C-arm images, 0.4 minutes fluoroscopy time IMPRESSION: STATUS POST ULTRASOUND AND FLUOROSCOPIC GUIDED PICC LINE PLACEMENT, READY FOR USE. THIS PROCEDURE WAS PERFORMED BY THE UNDERSIGNED.
--- NOTE | 2021-07-03 13:46 | P.PN ---
<Kathie Sheffield M - Last Filed: 07/03/21 13:31> Subjective Progress Note Date: 07/03/21 Principal diagnosis: swelling in BLE 56-year-old male patient with known history of COPD, chronic smoker, CAD, paroxysmal A. fib status post pacemaker insertion, chronic CHF with systolic dysfunction, ischemic cardiomyopathy with EF of 30-35% with AICD placement, anxiety who was recently hospitalized for acute exacerbation of COPD, complicated with possible pneumonia. Patient's chest x-ray showed bilateral airspace disease, underlying emphysema. CT angiogram of the chest showed no evidence of pulmonary embolism, extensive bullous pulmonary emphysema, with extensive honeycombing infiltrate in the mid and upper lung hendricks. Patient was treated with a combination of Rocephin and Zithromax initially, however he continued to have intermittent febrile episodes and subsequently he was switched to Zosyn by infectious disease service. Patient ended up having bronchoalveolar lavage on 06/24/[address] Ulloa, and BAL cultures showed no growth other than Jacey albicans. A separate BAL cultures were taken from right upper lobe and left lower lobe, cytology was negative for diagnostic malignancy. BAL cultures and viral cultures were negative. Patient was clinically improving, after being switched over to Zosyn patient's fever pattern had improved, and subsequently he was discharged home on oral course of Augmentin, and we recommended at least 2 week treatment with Augmentin, completion of prednisone taper and patient was sent home on home oxygen at 4 L. Patient states he was discharged on a Tuesday, by Tuesday night he started having increased swelling in his lower extremities, he could hardly get his socks on. At the same time he started developing a fever. He states he picked up his antibiotics and was taking them, he denied any worsening shortness of breath, no cough, no phlegm production, no hemoptysis no chest pain. No swelling or tenderness in the bilateral calves. He came into the emergency department for reevaluation on 06/29/2021. His temperature on admission was 101.4F. Chest x-ray showed findings similar to the prior exam with bilateral airspace disease, increased interstitium and underlying emphysema. Admission labs showed white blood cell count of 14.3, hemoglobin 12.4, sodium is 133, the rest of electrolytes were unremarkable, B1 is 16 creatinine 0.55, proBNP was 1520, troponin was 0.017, AST was 46, ALT was 158, alk phos was 146, urinalysis showed no evidence of infection, patient tested negative for COVID 19. Patient was started on vanc omycin for antibiotic coverage, and Zosyn. He was started on oral Lasix after a single dose of IV Lasix 40 mg. Currently ankle edema is improving, he is diuresing, he continues on the bronchodilators. On 07/01/2021 patient seen in follow-up on medical surgical floor, he states he is breathing comfortably, he is currently on 2 L of oxygen his pulse ox is 91- 93%. His ankle swelling is significantly down, this morning patient was able to produce a sputum specimen which was sent for culture, follow-up chest x-ray today showing confluent densities in the upper lobes, and worsening pneumonia. Patient currently remains on Zosyn and vancomycin. No fever or chills overnight. White blood cell count is 10.6, hemoglobin is 10.9, sodium is 131, the rest of the electrolytes and renal profile were unremarkable, LFTs are improved. No chest discomfort, no hemoptysis. Patient continues on nebulized bronchodilators, he is on oral dose of Lasix 40 mg daily. On 07/02/2021 patient seen in follow-up on medical surgical floor. He is still having intermittent fevers, T-max in last 24 hours 101.8F, patient was initially covered with a combination of Zosyn and vancomycin, ID service recommended discontinuing vancomycin and patient is currently on Zosyn and Levaquin has been added. Urine for Legionella antigen will be sent. Cultures reviewed, blood cultures have been negative, sputum Gram stain showing rare PMNs, few gram-positive cocci in clusters, few budding yeast. BAL cultures showed Jacey albicans. Today's labs reviewed, with blood cell count 12.3, hemoglobin is 9.3, sodium is 1:0, potassium is 4.3, B1 17 creatinine 0.57, CRP is 20.8, and pro-calcitonin level was 0.56. No worsening cough or hemoptysis, no chest pain, no altered mentation, hemodynamically has been stable, he has been tolerating ambulation in the room. Lower extremity swelling has significantly improved, patient remains on once daily dose of Lasix. 07/03/2021 patient seen in follow-up. He states there is no worsening dyspnea, occasional cough, no significant phlegm production, no chest discomfort, he remains on 2 L of oxygen the pulse ox of 90-93%, his fever pattern has improved in the last 24 hours, although the patient still has persistent low-grade fevers with a T-max of 100.6F. Room air pulse ox is 87%, and patient is very frustrated this morning as he was placed on the schedule for possible bronchoscopy with BAL without proper communication with him. Dr. Lundberg is at the bedside, and patient clinically has not worsened, he is currently on a combination of Levaquin and Zosyn, there has been no growth on BAL cultures from last admission, or blood or sputum culture, nasal swab for MRSA was negative. Follow blood cultures show no growth. Legionella urine antigen was negative. Yesterday CT of the chest was completed showing progressive chronic consolidation, likely representing progressive pneumonia, enlarged lymph nodes likely reactive. Objective - Vital Signs Vital signs: Vital Signs Temp 99.3 F 07/03/21 03:05 Pulse 100 07/03/21 12:00 Resp 18 07/03/21 08:00 BP 99/60 07/03/21 02:01 Pulse Ox 87 L 07/03/21 02:01 Intake & Output 07/02/21 07/03/21 07/03/21 18:59 06:59 18:59 Intake Total 354 Balance 354 Weight 52.617 kg Intake: Oral 354 Other: Voiding Method Toilet Toilet # Voids 3 2 1 - Exam GENERAL EXAM: Alert, very pleasant, 56-year-old white female, on 2 L of oxygen pulse ox of 91-93%, comfortable in no apparent distress. HEAD: Normocephalic/atraumatic. EYES: Normal reaction of pupils, equal size. Conjunctiva pink, sclera white. NOSE: Clear with pink turbinates. THROAT: No erythema or exudates. NECK: No masses, no JVD, no thyroid enlargement, no adenopathy. CHEST: No chest wall deformity. Symmetrical expansion. LUNGS: Equal air entry with no crackles, wheeze, rhonchi or dullness. CVS: Regular rate and rhythm, normal S1 and S2, no gallops, no murmurs, no rubs ABDOMEN: Soft, nontender. No hepatosplenomegaly, normal bowel sounds, no guarding or rigidity. EXTREMITIES: No clubbing, no edema, no cyanosis, 2+ pulses and upper and lower extremities. MUSCULOSKELETAL: Muscle strength and tone normal. SPINE: No scoliosis or deformity SKIN: No rashes CENTRAL NERVOUS SYSTEM: Alert and oriented -3. No focal deficits, tone is normal in all 4 extremities. PSYCHIATRIC: Alert and oriented -3. Appropriate affect. Intact judgment and insight. - Labs CBC & Chem 7: 07/02/21 05:19 07/02/21 05:19 Labs: Microbiology - Last 24 Hours (Table) 07/01/21 06:30 Gram Stain - Final Sputum Sputum Culture - Final 07/02/21 05:19 Blood Culture - Preliminary Blood No Growth after 24 hours 06/29/21 19:24 Blood Culture - Preliminary Blood No Growth after 72 hours 06/29/21 15:40 Blood Culture - Preliminary Blood No Growth after 72 hours Assessment and Plan Plan: Assessment: #1. Persistent fever, despite antibiotics, rule out bacteremia, blood cultures have been sent, current coverage with Zosyn and Levaquin. COVID-19 PCR was negative. Vancomycin has been discontinued #2. Bilateral upper lobe pneumonia, stable on the chest x-ray, status post recent bronchoscopy with BAL on 06/24/2021, and BAL cultures were negative, viral cultures have been negative, COVID-19 PCR was negative #3. Recent hospitalization for acute exacerbation of COPD, and bilateral pneumonia, discharged home on 06/25/2021 to complete 2 week course of Augmentin #4. Bullous emphysema/COPD, on home oxygen since the recent hospitalization on 4 L #5. Increased swelling in bilateral lower extremities, possibly related to acute exacerbation of systolic CHF #6. Prior history of myocardial infarction #7. History of paroxysmal A. fib status post AICD and pacemaker insertion #8. CAD with prior stenting #9. History of CHF with systolic dysfunction #10. Ischemic cardiomyopathy with EF of 30-35% #11. History of laparoscopic bilateral inguinal hernia repair #12. 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 History of anxiety Plan: Recommend continuing with medical treatment Possibility of bronchoscopy with BAL was discussed with the patient, however there is probably little value in repeating his bronch with BAL right now Findings of the CT chest were discussed with the patient Recommend placement of PICC line and patient will likely need extended IV antibiotics Clinically patient has been fairly stable, his fever pattern slightly improved Continue to follow his clinical course I have personally seen and examined the patient, performed the documentation and the assessment and plan as written. Number of minutes spent on the visit: [15] Time with Patient: Less than 30 <Marisol Lundberg - Last Filed: 07/03/21 15:30> Objective - Vital Signs Vital signs: Vital Signs Temp 98.2 F 07/03/21 13:53 Pulse 108 H 07/03/21 13:53 Resp 16 07/03/21 13:53 BP 94/59 07/03/21 13:53 Pulse Ox 95 07/03/21 13:53 Intake & Output 07/02/21 07/03/21 07/03/21 18:59 06:59 18:59 Intake Total 354 838 Balance 354 838 Weight 52.617 kg Intake: Oral 354 838 Other: Voiding Method Toilet Toilet # Voids 3 2 1 - Labs CBC & Chem 7: 07/02/21 05:19 07/02/21 05:19 Labs: Microbiology - Last 24 Hours (Table) 07/01/21 06:30 Gram Stain - Final Sputum Sputum Culture - Final 07/02/21 05:19 Blood Culture - Preliminary Blood No Growth after 24 hours 06/29/21 19:24 Blood Culture - Preliminary Blood No Growth after 72 hours 06/29/21 15:40 Blood Culture - Preliminary Blood No Growth after 72 hours Assessment and Plan Plan: I have personally seen and examined the patient and reviewed the documentation. I performed a joint evaluation with the nurse practitioner in this evaluation was done more than 20 minutes. I fully agree with the documentation above and the plan of care.
[2021-07-03] MEDS: NON FORMULARY DRUG (Buprenorphine Hcl/Naloxone Hcl [Suboxone 8 Mg-2 Mg Sl Film] 1 EACH Fil SUBLINGUAL SCH (14:13)
--- NOTE | 2021-07-03 16:03 | P.PN ---
Subjective Progress Note Date: 07/03/21 Principal diagnosis: Pneumonia Patient is a 56-year-old male who was recently admitted to the hospital and was diagnosed with pneumonia status post bronchoscopy and those culture were negative patient was subsequently discharged home on oral antibiotics and currently admitted to the hospital within 72 hours with a fever. On today's evaluation that is grade 07/03/2021, the patient did have a low-grade fever of 100.6F this morning the patient is afebrile since then, the patient is feeling slightly better, the patient denies having any chest pain he did have a cough with occasional sputum , the patient denies hemoptysis no nausea no vomiting no abdominal pain and no diarrhea Objective - Vital Signs Vital signs: Vital Signs Temp 99.3 F 07/03/21 03:05 Pulse 100 07/03/21 12:00 Resp 18 07/03/21 08:00 BP 99/60 07/03/21 02:01 Pulse Ox 87 L 07/03/21 02:01 Intake & Output 07/02/21 07/03/21 07/03/21 18:59 06:59 18:59 Intake Total 354 Balance 354 Weight 52.617 kg Intake: Oral 354 Other: Voiding Method Toilet Toilet # Voids 3 2 1 - Exam GENERAL DESCRIPTION: Middle-aged male lying in bed in no distress RESPIRATORY SYSTEM: Unlabored breathing , decreased breath sounds at bases HEART: S1 S2 regular rate and rhythm , ABDOMEN: Soft , no tenderness EXTREMITIES: No edema feet - Labs CBC & Chem 7: 07/02/21 05:19 07/02/21 05:19 Labs: Microbiology - Last 24 Hours (Table) 07/01/21 06:30 Gram Stain - Final Sputum Sputum Culture - Final 07/02/21 05:19 Blood Culture - Preliminary Blood No Growth after 24 hours 06/29/21 19:24 Blood Culture - Preliminary Blood No Growth after 72 hours 06/29/21 15:40 Blood Culture - Preliminary Blood No Growth after 72 hours Assessment and Plan (1) Febrile illness, acute Current Visit: Yes Status: Acute Code(s): R50.9 - FEVER, UNSPECIFIED SNOMED Code(s): 937652558 (2) Pneumonia Current Visit: Yes Status: Acute Code(s): J18.9 - PNEUMONIA, UNSPECIFIED ORGANISM SNOMED Code(s): 218081140 Plan: 1patient presented to hospital with a fever increasing shortness of breath and this patient was recently diagnosed with the right-sided pneumonia status post bronchoscopy and was culture showed Jacey likely colonizer, failing outpatient oral antibiotic therapy. 2sputum cultures as well as urine for Legionella antigen has been negative [address] of the chest did show progressive pulmonary consolidation, likely representing progressive pneumonia, pulmonary recommending no repeat bronchoscopy and prolonged course of antibiotics for the PICC line has been placed 4-with a sputum negative so far antibiotic will be adjusted to Unasyn Time with Patient: Less than 30
[2021-07-03] MEDS: AMPICILLIN-SULBACTAM 3 GM in SODIUM CHLORIDE 0.9% 100 ML IVPB SCH ×2 (17:58→23:55)
[2021-07-03] MEDS: ATORVASTATIN 40 MG TAB PO SCH (20:22)
[2021-07-03] MEDS: carvediloL 3.125 MG TAB PO SCH (20:23)
[2021-07-04] MEDS: ACETAMINOPHEN TAB 325 MG TAB PO PRN ×2 (00:05→07:59)
[2021-07-04] MEDS: AMPICILLIN-SULBACTAM 3 GM in SODIUM CHLORIDE 0.9% 100 ML IVPB SCH ×3 (06:05→17:36)
[2021-07-04] MEDS: NON FORMULARY DRUG (Buprenorphine Hcl/Naloxone Hcl [Suboxone 8 Mg-2 Mg Sl Film] 1 EACH Fil SUBLINGUAL SCH (07:29)
[2021-07-04] MEDS: NICOTINE 21MG/24HR PATCH TRANSDERM SCH (07:51)
[2021-07-04] MEDS: HEPARIN SODIUM,PORCINE/PF 5,000 UNIT/0.5 ML SYRINGE SQ SCH ×2 (07:51→17:36)
[2021-07-04] MEDS: NYSTATIN 100,000 UNIT/ML SUSP 500,000 UNIT/5 ML CUP PO SCH ×4 (07:51→20:04)
[2021-07-04] MEDS: FUROSEMIDE 40 MG TAB PO SCH (07:52)
[2021-07-04] MEDS: ASPIRIN 81 MG PO SCH (07:52)
[2021-07-04] MEDS: LEVOFLOXACIN 750 MG TAB PO SCH (07:52)
[2021-07-04] MEDS: IPRATROPIUM 0.5 MG/2.5 ML NEBU INHALATION SCH ×4 (08:25→20:47)
[2021-07-04] MEDS: SYMBICORT 80-4.5 MCG INHALER INHALATION SCH ×2 (08:25→20:47)
[2021-07-04] MEDS: ACETAMINOPHEN TAB 325 MG TAB PO SCH ×3 (08:49→17:38)
[2021-07-04] MEDS ORDERED: bisacodyL 10 MG SUPP RECTAL PRN (08:52)
[2021-07-04] MEDS: DOCUSATE 100 MG CAP PO SCH ×2 (09:53→20:04)
[2021-07-04] MEDS: polyethylene glycoL 3350 17 GM POWD.PACK PO SCH ×2 (09:53→12:14)
--- NOTE | 2021-07-04 11:33 | P.PN ---
Subjective Progress Note Date: 07/04/21 Pt continues to spike fevers. Tmax was 102.6 overnight. Now producing more sputum, thick yellow/greenish per nursing. Remains on 2L NC. Objective - Vital Signs Vital signs: Vital Signs Temp 102.6 F H 07/04/21 07:21 Pulse 102 H 07/04/21 08:00 Resp 18 07/04/21 08:00 BP 121/74 07/04/21 07:21 Pulse Ox 96 07/04/21 07:21 Intake & Output 07/03/21 07/04/21 07/04/21 18:59 06:59 18:59 Intake Total 1798 838 Balance 1798 838 Intake: Oral 1798 838 Other: Voiding Method Toilet Toilet # Voids 2 2 - Exam Gen: awake, alert HEENT: normocephalic, atraumatic, good hearing acuity, moist mucous membranes Resp: impaired air exchange, breathing comfortably with no accessory muscle use CVS: good distal perfusion x 4, GI: soft, NTTP, ND : no SPT, no CVAT, sung catheter not present MSK: no pitting edema, no clubbing Neuro: non-focal, moving all extremities Psych: cooperative, euthymic mood - Labs CBC & Chem 7: 07/02/21 05:19 07/02/21 05:19 Labs: Microbiology - Last 24 Hours (Table) 07/02/21 05:19 Blood Culture - Preliminary Blood No Growth after 48 hours 06/29/21 19:24 Blood Culture - Preliminary Blood No Growth after 96 hours 06/29/21 15:40 Blood Culture - Preliminary Blood No Growth after 96 hours 07/01/21 06:30 Gram Stain - Final Sputum Sputum Culture - Final Assessment and Plan Assessment: Pneumonia, failed outpatient treatment with sepsis AE COPD Acute on chronic hypoxic respiratory failure - levoquin/zosyn - PICC line pending 07/03 - Await cultures. - Beta D glucan, pending - MRSA negative - HIV negative - Pulm and ID recs - Bronchodilators - pulm hygeine - Blood cultures negative to date. - Repeat Sputum Cx and AFB stain on 07/04 Acute exacerbation of systolic CHF with EF 30-35 % ASCAD - Oral Lasix - ASA, lipitor, BB - entresto on hold due to recent hypotension on last hospital stay. 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 Thrombocytosis - chronic at baseline - follow CBC Tobacco abuse - cessation - nicotine replacement if needed Underweight with BMI 18.2 - dietitian recsheri DVT prophylaxis: heparin Anticipated discharge: in 3-[address]: home
[2021-07-04 11:53] LABS: Potassium 4.4 mmol/L (3.5-5.5)
[2021-07-04 11:54] LABS: African American GFR (CKD) 121.4 (60.0-200.0); Anion Gap 13.6 mmol/L (10.00-18.00); BUN/Creat Ratio 22.43 Ratio (12.00-20.00); Basophils # (A) 0.05 X 10*3/uL (0.00-0.10); Basophils % (A) 0.4 %; Blood Urea Nitrogen 15.7 mg/dL (9.0-27.0); Calcium 8.5 mg/dL (8.7-10.3); Carbon Dioxide 25.4 mmol/L (20.0-27.5); Eosinophils % (A) 4.4 %; HCT 30.5 % (39.6-50.0); HGB 9.5 g/dL (13.0-17.0); Immature Grans, Automated 1.7 %; Lymphocytes # (A) 1.05 X 10*3/uL (0.90-5.00); Lymphocytes % (A) 7.6 %; MCHC 31.1 g/dL (32.0-37.0); MCV 86.6 fL (80.0-97.0); Mean Platelet Volume 9.8 fL (9.5-12.2); Monocytes # (A) 1.14 X 10*3/uL (0.20-1.00); Monocytes % (A) 8.3 %; NRBC Per 100 WBC 0 /100 WBCS (0.0-0.0); Neutrophils # (A) 10.66 X 10*3/uL (1.80-7.70); Neutrophils % (A) 77.6 %; Non-African American GFR(CKD) 104.8 (60.0-200.0); Platelet Count 587 X 10*3/uL (140-440); RBC 3.52 X 10*6/uL (4.40-5.60); RDW 15.2 % (11.5-14.5); WBC 13.73 X 10*3/uL (4.50-10.00)
--- NOTE | 2021-07-04 12:55 | P.PN ---
<Karen Reed - Last Filed: 07/04/21 12:48> Subjective Progress Note Date: 07/04/21 56-year-old male patient with known history of COPD, chronic smoker, CAD, paroxysmal A. fib status post pacemaker insertion, chronic CHF with systolic dysfunction, ischemic cardiomyopathy with EF of 30-35% with AICD placement, anxiety who was recently hospitalized for acute exacerbation of COPD, complicated with possible pneumonia. Patient's chest x-ray showed bilateral airspace disease, underlying emphysema. CT angiogram of the chest showed no evidence of pulmonary embolism, extensive bullous pulmonary emphysema, with extensive honeycombing infiltrate in the mid and upper lung hendricks. Patient was treated with a combination of Rocephin and Zithromax initially, however he continued to have intermittent febrile episodes and subsequently he was switched to Zosyn by infectious disease service. Patient ended up having bronchoalveolar lavage on 06/24/[address] Ulloa, and BAL cultures showed no growth other than Jacey albicans. A separate BAL cultures were taken from right upper lobe and left lower lobe, cytology was negative for diagnostic malignancy. BAL cultures and viral cultures were negative. Patient was clinically improving, after being switched over to Zosyn patient's fever pattern had improved, and subsequently he was discharged home on oral course of Augmentin, and we recommended at least 2 week treatment with Augmentin, completion of prednisone taper and patient was sent home on home oxygen at 4 L. Patient states he was discharged on a Tuesday, by Tuesday night he started having increased swelling in his lower extremities, he could hardly get his socks on. At the same time he started developing a fever. He states he picked up his antibiotics and was taking them, he denied any worsening shortness of breath, no cough, no phlegm production, no hemoptysis no chest pain. No swelling or tenderness in the bilateral calves. He came into the emergency department for reevaluation on 06/29/2021. His temperature on admission was 101.4F. Chest x-ray showed findings similar to the prior exam with bilateral airspace disease, increased interstitium and underlying emphysema. Admission labs showed white blood cell count of 14.3, hemoglobin 12.4, sodium is 133, the rest of electrolytes were unremarkable, B1 is 16 creatinine 0.55, proBNP was 1520, troponin was 0.017, AST was 46, ALT was 158, alk phos was 146, urinalysis showed no evidence of infection, patient tested negative for COVID 19. Patient was started on vancomycin for antibiotic coverage, and Zosyn. He was started on oral Lasix after a single dose of IV Lasix 40 mg. Currently ankle edema is improving, he is diuresing, he continues on the bronchodilators. On 07/01/2021 patient seen in follow-up on medical surgical floor, he states he is breathing comfortably, he is currently on 2 L of oxygen his pulse ox is 91- 93%. His ankle swelling is significantly down, this morning patient was able to produce a sputum specimen which was sent for culture, follow-up chest x-ray today showing confluent densities in the upper lobes, and worsening pneumonia. Patient currently remains on Zosyn and vancomycin. No fever or chills overnight. White blood cell count is 10.6, hemoglobin is 10.9, sodium is 131, the rest of the electrolytes and renal profile were unremarkable, LFTs are improved. No chest discomfort, no hemoptysis. Patient continues on nebulized bronchodilators, he is on oral dose of Lasix 40 mg daily. On 07/02/2021 patient seen in follow-up on medical surgical floor. He is still having intermittent fevers, T-max in last 24 hours 101.8F, patient was initially covered with a combination of Zosyn and vancomycin, ID service recommended discontinuing vancomycin and patient is currently on Zosyn and Levaquin has been added. Urine for Legionella antigen will be sent. Cultures reviewed, blood cultures have been negative, sputum Gram stain showing rare PMNs, few gram-positive cocci in clusters, few budding yeast. BAL cultures showed Jacey albicans. Today's labs reviewed, with blood cell count 12.3, hemoglobin is 9.3, sodium is 1:0, potassium is 4.3, B1 17 creatinine 0.57, CRP is 20.8, and pro-calcitonin level was 0.56. No worsening cough or hemoptysis, no chest pain, no altered mentation, hemodynamically has been stable, he has been tolerating ambulation in the room. Lower extremity swelling has significantly improved, patient remains on once daily dose of Lasix. 07/03/2021 patient seen in follow-up. He states there is no worsening dyspnea, occasional cough, no significant phlegm production, no chest discomfort, he remains on 2 L of oxygen the pulse ox of 90-93%, his fever pattern has improved in the last 24 hours, although the patient still has persistent low-grade fevers with a T-max of 100.6F. Room air pulse ox is 87%, and patient is very frustrated this morning as he was placed on the schedule for possible bronchoscopy with BAL without proper communication with him. Dr. Lundberg is at the bedside, and patient clinically has not worsened, he is currently on a combination of Levaquin and Zosyn, there has been no growth on BAL cultures from last admission, or blood or sputum culture, nasal swab for MRSA was negative. Follow blood cultures show no growth. Legionella urine antigen was negative. Yesterday CT of the chest was completed showing progressive chronic cons olidation, likely representing progressive pneumonia, enlarged lymph nodes likely reactive. The patient is seen today 07/04/2021 in follow-up on the regular medical floor. He is currently sitting up in bed. Awake and alert in no acute distress. He is currently maintaining O2 saturations in the mid 90s on 2 L/m per nasal cannula. He did spike another fever this morning of 102.6. No worsening shortness of breath, cough or congestion. Blood cultures are revealing no growth. Sputum culture revealed no growth. White count 13.7. Hemoglobin 9.5. Platelets 587. Sodium 132. Potassium 4.4. BUN 16. Creatinine 0.7. Glucose 131. Antibiotics have been modified to Unasyn and Levaquin. He remains on oral diuretics. NicoDerm patch in place. Objective - Vital Signs Vital signs: Vital Signs Temp 102.6 F H 07/04/21 07:21 Pulse 102 H 07/04/21 08:00 Resp 18 07/04/21 08:00 BP 121/74 07/04/21 07:21 Pulse Ox 96 07/04/21 07:21 Intake & Output 07/03/21 07/04/21 07/04/21 18:59 06:59 18:59 Intake Total 1798 838 Balance 1798 838 Intake: Oral 1798 838 Other: Voiding Method Toilet Toilet # Voids 2 2 - Exam GENERAL EXAM: Alert, very pleasant, 56-year-old male patient, on 2 L of oxygen pulse ox of 96%, comfortable in no apparent distress. HEAD: Normocephalic/atraumatic. EYES: Normal reaction of pupils, equal size. Conjunctiva pink, sclera white. NOSE: Clear with pink turbinates. THROAT: No erythema or exudates. NECK: No masses, no JVD, no thyroid enlargement, no adenopathy. CHEST: No chest wall deformity. Symmetrical expansion. LUNGS: Equal air entry with few scattered rhonchi. CVS: Regular rate and rhythm, normal S1 and S2, no gallops, no murmurs, no rubs ABDOMEN: Soft, nontender. No hepatosplenomegaly, normal bowel sounds, no guarding or rigidity. EXTREMITIES: No clubbing, no edema, no cyanosis, 2+ pulses and upper and lower extremities. MUSCULOSKELETAL: Muscle strength and tone normal. SPINE: No scoliosis or deformity SKIN: No rashes CENTRAL NERVOUS SYSTEM: No focal deficits, tone is normal in all 4 extremities. PSYCHIATRIC: Alert and oriented -3. Appropriate affect. Intact judgment and insight. - Labs CBC & Chem 7: 07/04/21 07:21 07/04/21 07:21 Labs: Abnormal Lab Results - Last 24 Hours (Table) 07/04/21 07/04/21 Range/Units 07:21 07:21 WBC 13.73 H (4.50-10.00) X 10*3/uL RBC 3.52 L (4.40-5.60) X 10*6/uL Hgb 9.5 L (13.0-17.0) g/dL Hct 30.5 L (39.6-50.0) % MCHC 31.1 L (32.0-37.0) g/dL RDW 15.2 H (11.5-14.5) % Plt Count 587 H (140-440) X 10*3/uL Immature Gran # 0.23 H (0.00-0.04) X 10*3/uL Neutrophils # 10.66 H (1.80-7.70) X 10*3/uL Monocytes # 1.14 H (0.20-1.00) X 10*3/uL Eosinophils # 0.60 H (0.04-0.35) X 10*3/uL Sodium 132 L (135-145) mmol/L Chloride 93 L (96-109) mmol/L BUN/Creatinine Ratio 22.43 H (12.00-20.00) Ratio Glucose 131 H (70-110) mg/dL Calcium 8.5 L (8.7-10.3) mg/dL Microbiology - Last 24 Hours (Table) 07/02/21 05:19 Blood Culture - Preliminary Blood No Growth after 48 hours 06/29/21 19:24 Blood Culture - Preliminary Blood No Growth after 96 hours 06/29/21 15:40 Blood Culture - Preliminary Blood No Growth after 96 hours 07/01/21 06:30 Gram Stain - Final Sputum Sputum Culture - Final Assessment and Plan Assessment: 1 Persistent fever, despite antibiotics, rule out bacteremia, blood cultures h ave been sent, current coverage with Unasyn and Levaquin. COVID-19 PCR was negative. 2 Bilateral upper lobe pneumonia, stable on the chest x-ray, status post recent bronchoscopy with BAL on 06/24/2021, and BAL cultures were negative, viral cultures have been negative, COVID-19 PCR was negative 3 Recent hospitalization for acute exacerbation of COPD, and bilateral pneumonia, discharged home on 06/25/2021 to complete 2 week course of Augmentin 4 Bullous emphysema/COPD, on home oxygen since the recent hospitalization on 4 L 5 Increased swelling in bilateral lower extremities, possibly related to acute exacerbation of systolic CHF 6 Prior history of myocardial infarction 7 History of paroxysmal A. fib status post AICD and pacemaker insertion 8 CAD with prior stenting 9 History of CHF with systolic dysfunction 10 Ischemic cardiomyopathy with EF of 30-35% 11 History of laparoscopic bilateral inguinal hernia repair 12 History of prescription narcotic abuse currently on Suboxone 13 History of anxiety Plan: Patient was seen and evaluated Continues to spike fevers PICC line has been placed Antibiotics have been adjusted Follow-up chest x-ray in the a.m. Titrate the FiO2 as tolerated Increase his activity as tolerated We will continue to follow I, the cosigning physician, performed a history & physical examination of the patient. Lungs sounds with bilateral scattered rhonchi. Maintaining good O2 saturations in the 90s on 2 L/m per nasal cannula. I discussed the assessment and plan of care with my nurse practitioner, Karen Reed. I attest to the above note as dictated by her. I have personally seen and examined the patient, performed the documentation and the assessment and plan as written. Number of minutes spent on the visit: 10. <Marisol Lundberg - Last Filed: 07/04/21 14:44> Objective - Vital Signs Vital signs: Vital Signs Temp 98.2 F 07/04/21 14:00 Pulse 107 H 07/04/21 14:00 Resp 15 07/04/21 14:00 BP 129/79 07/04/21 14:00 Pulse Ox 90 L 07/04/21 14:00 Intake & Output 07/03/21 07/04/21 07/04/21 18:59 06:59 18:59 Intake Total 1798 1676 Balance 1798 1676 Intake: Oral 1796 1675 Other: Voiding Method Toilet Toilet # Voids 2 2 - Labs CBC & Chem 7: 07/04/21 07:21 07/04/21 07:21 Labs: Abnormal Lab Results - Last 24 Hours (Table) 07/04/21 07/04/21 Range/Units 07:21 07:21 WBC 13.73 H (4.50-10.00) X 10*3/uL RBC 3.52 L (4.40-5.60) X 10*6/uL Hgb 9.5 L (13.0-17.0) g/dL Hct 30.5 L (39.6-50.0) % MCHC 31.1 L (32.0-37.0) g/dL RDW 15.2 H (11.5-14.5) % Plt Count 587 H (140-440) X 10*3/uL Immature Gran # 0.23 H (0.00-0.04) X 10*3/uL Neutrophils # 10.66 H (1.80-7.70) X 10*3/uL Monocytes # 1.14 H (0.20-1.00) X 10*3/uL Eosinophils # 0.60 H (0.04-0.35) X 10*3/uL Sodium 132 L (135-145) mmol/L Chloride 93 L (96-109) mmol/L BUN/Creatinine Ratio 22.43 H (12.00-20.00) Ratio Glucose 131 H (70-110) mg/dL Calcium 8.5 L (8.7-10.3) mg/dL Microbiology - Last 24 Hours (Table) 07/02/21 05:19 Blood Culture - Preliminary Blood No Growth after 48 hours 06/29/21 19:24 Blood Culture - Preliminary Blood No Growth after 96 hours 06/29/21 15:40 Blood Culture - Preliminary Blood No Growth after 96 hours Assessment and Plan Assessment: I have personally seen and examined the patient and reviewed the documentation. I performed a joint evaluation with the nurse practitioner in this evaluation was done more than 20 minutes. I fully agree with the documentation above and the plan of care.
[2021-07-04] MEDS: FLUCONAZOLE 100 MG TAB PO SCH (17:37)
[2021-07-04] MEDS: ATORVASTATIN 40 MG TAB PO SCH (20:03)
[2021-07-04] MEDS: carvediloL 3.125 MG TAB PO SCH (20:04)
[2021-07-05] MEDS: HEPARIN SODIUM,PORCINE/PF 5,000 UNIT/0.5 ML SYRINGE SQ SCH ×4 (00:08→20:10)
[2021-07-05] MEDS: AMPICILLIN-SULBACTAM 3 GM in SODIUM CHLORIDE 0.9% 100 ML IVPB SCH ×5 (00:16→23:48)
[2021-07-05] MEDS: ACETAMINOPHEN TAB 325 MG TAB PO SCH ×5 (00:16→23:47)
--- NOTE | 2021-07-05 00:27 | P.PN ---
Subjective Progress Note Date: 07/04/21 Principal diagnosis: Pneumonia Patient is a 56-year-old male who was recently admitted to the hospital and was diagnosed with pneumonia status post bronchoscopy and those culture were negative patient was subsequently discharged home on oral antibiotics and currently admitted to the hospital within 72 hours with a fever. On today's evaluation that is grade 07/04/2021, the patient did did spike a fever of 101F however the patient is feeling slightly better, the patient denies having any chest pain he did have a cough and during of significant amount of sputum this morning unfortunately sample was not collected as the patient mentioned he did not have any cough , the patient denies hemoptysis no nausea no vomiting no abdominal pain and no diarrhea Objective - Vital Signs Vital signs: Vital Signs Temp 98.2 F 07/04/21 14:00 Pulse 107 H 07/04/21 14:00 Resp 15 07/04/21 14:00 BP 129/79 07/04/21 14:00 Pulse Ox 90 L 07/04/21 14:00 Intake & Output 07/03/21 07/04/21 07/04/21 18:59 06:59 18:59 Intake Total 1798 1676 Balance 1798 1676 Intake: Oral 1798 1676 Other: Voiding Method Toilet Toilet # Voids 2 2 - Exam GENERAL DESCRIPTION: Middle-aged male lying in bed in no distress RESPIRATORY SYSTEM: Unlabored breathing , decreased breath sounds at bases HEART: S1 S2 regular rate and rhythm , ABDOMEN: Soft , no tenderness EXTREMITIES: No edema feet - Labs CBC & Chem 7: 07/04/21 07:21 07/04/21 07:21 Labs: Abnormal Lab Results - Last 24 Hours (Table) 07/04/21 07/04/21 Range/Units 07:21 07:21 WBC 13.73 H (4.50-10.00) X 10*3/uL RBC 3.52 L (4.40-5.60) X 10*6/uL Hgb 9.5 L (13.0-17.0) g/dL Hct 30.5 L (39.6-50.0) % MCHC 31.1 L (32.0-37.0) g/dL RDW 15.2 H (11.5-14.5) % Plt Count 587 H (140-440) X 10*3/uL Immature Gran # 0.23 H (0.00-0.04) X 10*3/uL Neutrophils # 10.66 H (1.80-7.70) X 10*3/uL Monocytes # 1.14 H (0.20-1.00) X 10*3/uL Eosinophils # 0.60 H (0.04-0.35) X 10*3/uL Sodium 132 L (135-145) mmol/L Chloride 93 L (96-109) mmol/L BUN/Creatinine Ratio 22.43 H (12.00-20.00) Ratio Glucose 131 H (70-110) mg/dL Calcium 8.5 L (8.7-10.3) mg/dL Microbiology - Last 24 Hours (Table) 07/02/21 05:19 Blood Culture - Preliminary Blood No Growth after 48 hours 06/29/21 19:24 Blood Culture - Preliminary Blood No Growth after 96 hours 06/29/21 15:40 Blood Culture - Preliminary Blood No Growth after 96 hours Assessment and Plan (1) Febrile illness, acute Current Visit: Yes Status: Acute Code(s): R50.9 - FEVER, UNSPECIFIED SNOMED Code(s): 227020629 (2) Pneumonia Current Visit: Yes Status: Acute Code(s): J18.9 - PNEUMONIA, UNSPECIFIED ORG ANISM SNOMED Code(s): 947539282 Plan: 1patient presented to hospital with a fever increasing shortness of breath and this patient was recently diagnosed with the right-sided pneumonia status post bronchoscopy and was culture showed Jacey likely colonizer, failing outpatient oral antibiotic therapy. 2sputum cultures as well as urine for Legionella antigen has been negative [address] of the chest did show progressive pulmonary consolidation, likely representing progressive pneumonia, sputum culture has been requested and will also check cryptococcal antigen 4-patient to continue with Unasyn discontinued Levaquin and add Diflucan 400 mg daily Time with Patient: Less than 30
[2021-07-05] MEDS: NYSTATIN 100,000 UNIT/ML SUSP 500,000 UNIT/5 ML CUP PO SCH ×2 (07:14→12:46)
[2021-07-05] MEDS: FUROSEMIDE 40 MG TAB PO SCH (07:15)
[2021-07-05] MEDS: FLUCONAZOLE 100 MG TAB PO SCH (07:15)
[2021-07-05] MEDS: ASPIRIN 81 MG PO SCH (07:15)
[2021-07-05] MEDS: NICOTINE 21MG/24HR PATCH TRANSDERM SCH (07:15)
[2021-07-05] MEDS: DOCUSATE 100 MG CAP PO SCH ×2 (07:17→20:10)
[2021-07-05] MEDS: polyethylene glycoL 3350 17 GM POWD.PACK PO SCH (07:23)
[2021-07-05] MEDS: NON FORMULARY DRUG (Buprenorphine Hcl/Naloxone Hcl [Suboxone 8 Mg-2 Mg Sl Film] 1 EACH Fil SUBLINGUAL SCH (07:23)
--- NOTE | 2021-07-05 07:37 | XR ---
EXAMINATION TYPE: XR chest 1V DATE OF EXAM: 07/05/2021 HISTORY: Shortness of breath. COMPARISON: 07/01/2021 TECHNIQUE: Single view of the chest is submitted. FINDINGS: Demonstrated are scattered senescent parenchymal change. Persistent suprahilar and upper lobe airspace infiltrates with underlying cystic changes. Mild progre ssion right apical region. The heart is stable. Hilar and mediastinal structures are within normal limits. Degenerative changes are seen of the dorsal spine. IMPRESSION: 1. Persistent suprahilar and upper lobe airspace infiltrates with underlying cystic changes. Mild pr ogression right apical region.
[2021-07-05] MEDS: IPRATROPIUM 0.5 MG/2.5 ML NEBU INHALATION SCH ×4 (08:43→20:08)
[2021-07-05] MEDS: SYMBICORT 80-4.5 MCG INHALER INHALATION SCH ×2 (08:43→20:08)
[2021-07-05] MEDS: IPRATROPIUM-ALBUTEROL 3 ML NEB INHALATION PRN (11:07)
--- NOTE | 2021-07-05 12:53 | P.PN ---
Subjective Progress Note Date: 07/05/21 No new complaints today. Had breakthrough fever overnight. Oxygen stable. No further sputum production over last 24 hours. Feels more congested. CrAg pending, fungitell pending. On unasyn. Objective - Vital Signs Vital signs: Vital Signs Temp 98.3 F 07/05/21 07:36 Pulse 114 H 07/05/21 11:23 Resp 20 07/05/21 08:00 BP 109/74 07/05/21 07:36 Pulse Ox 99 07/05/21 07:36 Intake & Output 07/04/21 07/05/21 07/05/21 18:59 06:59 18:59 Intake Total 1676 838 Balance 1676 838 Intake: Oral 1677 838 Other: Voiding Method Toilet Toilet Toilet # Voids 3 2 - Exam Gen: awake, alert HEENT: normocephalic, atraumatic, good hearing acuity, moist mucous membranes Resp: impaired air exchange, breathing comfortably with no accessory muscle use CVS: good distal perfusion x 4, GI: soft, NTTP, ND : no SPT, no CVAT, sung catheter not present MSK: no pitting edema, no clubbing Neuro: non-focal, moving all extremities Psych: cooperative, euthymic mood - Labs CBC & Chem 7: 07/04/21 07:21 07/04/21 07:21 Labs: Abnormal Lab Results - Last 24 Hours (Table) 07/05/21 07/05/21 07/05/21 Range/Units 06:30 06:30 06:30 ESR 82 H (0-20) mm/Hr C-Reactive Protein 24.90 H (0.00-0.80) mg/dL Procalcitonin 0.68 H (0.02-0.09) ng/mL Microbiology - Last 24 Hours (Table) 07/02/21 05:19 Blood Culture - Preliminary Blood No Growth after 72 hours 06/29/21 19:24 Blood Culture - Preliminary Blood No Growth after 120 hours 06/29/21 15:40 Blood Culture - Preliminary Blood No Growth after 120 hours Assessment and Plan Assessment: Pneumonia, failed outpatient treatment with sepsis AE COPD Acute on chronic hypoxic respiratory failure - levoquin/zosyn - PICC line pending 3/4 - Await cultures. - Beta D glucan, pending - MRSA negative - HIV negative - Pulm and ID recs - Bronchodilators - pulm hygeine - Blood cultures negative to date. - Repeat Sputum Cx and AFB stain on 07/04 - CrAg, pending Acute exacerbation of systolic CHF with EF 30-35 % ASCAD - Oral Lasix - ASA, lipitor, BB - entresto on hold due to recent hypotension on last hospital stay. Patient plans on following up with his primary religious educator regarding this. Thrombocytosis - chronic at baseline - follow CBC Tobacco abuse - cessation - nicotine replacement if needed Underweight with BMI 18.2 - dietitian recs DVT prophylaxis: heparin Anticipated discharge: pending clinical course Anticipated discharge place: home
--- NOTE | 2021-07-05 13:39 | P.PN ---
Subjective Progress Note Date: 07/05/21 56-year-old male patient with known history of COPD, chronic smoker, CAD, paroxysmal A. fib status post pacemaker insertion, chronic CHF with systolic dysfunction, ischemic cardiomyopathy with EF of 30-35% with AICD placement, anxiety who was recently hospitalized for acute exacerbation of COPD, compli cated with possible pneumonia. Patient's chest x-ray showed bilateral airspace disease, underlying emphysema. CT angiogram of the chest showed no evidence of pulmonary embolism, extensive bullous pulmonary emphysema, with extensive honeycombing infiltrate in the mid and upper lung hendricks. Patient was treated with a combination of Rocephin and Zithromax initially, however he continued to have intermittent febrile episodes and subsequently he was switched to Zosyn by infectious disease service. Patient ended up having bronchoalveolar lavage on 06/24/[address] Ulloa, and BAL cultures showed no growth other than Jacey albicans. A separate BAL cultures were taken from right upper lobe and left lower lobe, cytology was negative for diagnostic malignancy. BAL cultures and viral cultures were negative. Patient was clinically improving, after being switched over to Zosyn patient's fever pattern had improved, and subsequently he was discharged home on oral course of Augmentin, and we recommended at least 2 week treatment with Augmentin, completion of prednisone taper and patient was sent home on home oxygen at 4 L. Patient states he was discharged on a Tuesday, by Tuesday night he started having increased swelling in his lower extremities, he could hardly get his socks on. At the same time he started developing a fever. He states he picked up his antibiotics and was taking them, he denied any worsening shortness of breath, no cough, no phlegm production, no hemoptysis no chest pain. No swelling or tenderness in the bilateral calves. He came into the emergency department for reevaluation on 06/29/2021. His temperature on admission was 101.4F. Chest x-ray showed findings similar to the prior exam with bilateral airspace disease, increased interstitium and underlying emphysema. Admission labs showed white blood cell count of 14.3, hemoglobin 12.4, sodium is 133, the rest of electrolytes were unremarkable, B1 is 16 creatinine 0.55, proBNP was 1520, troponin was 0.017, AST was 46, ALT was 158, alk phos was 146, urinalysis showed no evidence of infection, patient tested negative for COVID 19. Patient was started on vancomycin for antibiotic coverage, and Zosyn. He was started on oral Lasix after a single dose of IV Lasix 40 mg. Currently ankle edema is improving, he is diuresing, he continues on the bronchodilators. On 07/01/2021 patient seen in follow-up on medical surgical floor, he states he is breathing comfortably, he is currently on 2 L of oxygen his pulse ox is 91- 93%. His ankle swelling is significantly down, this morning patient was able to produce a sputum specimen which was sent for culture, follow-up chest x-ray today showing confluent densities in the upper lobes, and worsening pneumonia. Patient currently remains on Zosyn and vancomycin. No fever or chills overnight. White blood cell count is 10.6, hemoglobin is 10.9, sodium is 131, the rest of the electrolytes and renal profile were unremarkable, LFTs are improved. No chest discomfort, no hemoptysis. Patient continues on nebulized bronchodilators, he is on oral dose of Lasix 40 mg daily. On 07/02/2021 patient seen in follow-up on medical surgical floor. He is still having intermittent fevers, T-max in last 24 hours 101.8F, patient was initially covered with a combination of Zosyn and vancomycin, ID service recommended discontinuing vancomycin and patient is currently on Zosyn and Levaquin has been added. Urine for Legionella antigen will be sent. Cultures reviewed, blood cultures have been negative, sputum Gram stain showing rare PMNs, few gram-positive cocci in clusters, few budding yeast. BAL cultures showed Jacey albicans. Today's labs reviewed, with blood cell count 12.3, hemoglobin is 9.3, sodium is 1:0, potassium is 4.3, B1 17 creatinine 0.57, CRP is 20.8, and pro-calcitonin level was 0.56. No worsening cough or hemoptysis, no chest pain, no altered mentation, hemodynamically has been stable, he has been tolerating ambulation in the room. Lower extremity swelling has significantly improved, patient remains on once daily dose of Lasix. 07/03/2021 patient seen in follow-up. He states there is no worsening dyspnea, occasional cough, no significant phlegm production, no chest discomfort, he remains on 2 L of oxygen the pulse ox of 90-93%, his fever pattern has improved in the last 24 hours, although the patient still has persistent low-grade fevers with a T-max of 100.6F. Room air pulse ox is 87%, and patient is very fru strated this morning as he was placed on the schedule for possible bronchoscopy with BAL without proper communication with him. Dr. Lundberg is at the bedside, and patient clinically has not worsened, he is currently on a combination of Levaquin and Zosyn, there has been no growth on BAL cultures from last admission, or blood or sputum culture, nasal swab for MRSA was negative. Follow blood cultures show no growth. Legionella urine antigen was negative. Yesterday CT of the chest was completed showing progressive chronic consolidation, likely representing progressive pneumonia, enlarged lymph nodes likely reactive. The patient is seen today 07/04/2021 in follow-up on the regular medical floor. He is currently sitting up in bed. Awake and alert in no acute distress. He is currently maintaining O2 saturations in the mid 90s on 2 L/m per nasal cannula. He did spike another fever this morning of 102.6. No worsening shortness of breath, cough or congestion. Blood cultures are revealing no growth. Sputum culture revealed no growth. White count 13.7. Hemoglobin 9.5. Platelets 587. Sodium 132. Potassium 4.4. BUN 16. Creatinine 0.7. Glucose 131. Antibiotics have been modified to Unasyn and Levaquin. He remains on oral diuretics. NicoDerm patch in place. 07/05/2021, the patient is still running fever. He feels a bit more lethargic compared to yesterday. He remains on a combination of IV Unasyn and Levaquin. The pro-calcitonin Was at 0.68. The White Cell Count Is at 13.7. He Was at 9.5. Repeat Chest X-Ray Was Done on 07/05/2021 Shows Extensive Bilateral P neumonia with Persistent Upper Lobe Airspace Disease with Questionable Some Mild Progression in the Right Apical Region. Patient Remains on Oxygen at 2 L Per Minute Nasal Cannula. The cultures from the bronchioloalveolar lavage has been negative. The patient is currently on IV Unasyn and Diflucan was also added by infectious disease. Objective - Vital Signs Vital signs: Vital Signs Temp 98.3 F 07/05/21 07:36 Pulse 114 H 07/05/21 11:23 Resp 20 07/05/21 08:00 BP 109/74 07/05/21 07:36 Pulse Ox 99 07/05/21 07:36 Intake & Output 07/04/21 07/05/21 07/05/21 18:59 06:59 18:59 Intake Total 1676 838 Balance 6046 838 Intake: Oral 4910 838 Other: Voiding Method Toilet Toilet Toilet # Voids 3 2 - Exam GENERAL EXAM: Alert, very pleasant, 56-year-old male patient, on 2 L of oxygen pulse ox of 96%, comfortable in no apparent distress. HEAD: Normocephalic/atraumatic. EYES: Normal reaction of pupils, equal size. Conjunctiva pink, sclera white. NOSE: Clear with pink turbinates. THROAT: No erythema or exudates. NECK: No masses, no JVD, no thyroid enlargement, no adenopathy. CHEST: No chest wall deformity. Symmetrical expansion. LUNGS: Equal air entry with few scattered rhonchi. CVS: Regular rate and rhythm, normal S1 and S2, no gallops, no murmurs, no rubs ABDOMEN: Soft, nontender. No hepatosplenomegaly, normal bowel sounds, no guarding or rigidity. EXTREMITIES: No clubbing, no edema, no cyanosis, 2+ pulses and upper and lower extremities. MUSCULOSKELETAL: Muscle strength and tone normal. SPINE: No scoliosis or deformity SKIN: No rashes CENTRAL NERVOUS SYSTEM: No focal deficits, tone is normal in all 4 extremities. PSYCHIATRIC: Alert and oriented -3. Appropriate affect. Intact judgment and insight. - Labs CBC & Chem 7: 07/04/21 07:21 07/04/21 07:21 Labs: Abnormal Lab Results - Last 24 Hours (Table) 07/05/21 07/05/21 07/05/21 Range/Units 06:30 06:30 06:30 ESR 82 H (0-20) mm/Hr C-Reactive Protein 24.90 H (0.00-0.80) mg/dL Procalcitonin 0.68 H (0.02-0.09) ng/mL Microbiology - Last 24 Hours (Table) 07/02/21 05:19 Blood Culture - Preliminary Blood No Growth after 72 hours 06/29/21 19:24 Blood Culture - Preliminary Blood No Growth after 120 hours 02/28/22 15:40 Blood Culture - Preliminary Blood No Growth after 120 hours Assessment and Plan Assessment: I 1 Persistent fever, despite antibiotics, rule out bacteremia, blood cultures have been sent, current coverage with Unasyn and Levaquin and Diflucan. COVID-1 9 PCR was negative. There is of the bronchial lavage were all negative. 2 Bilateral upper lobe pneumonia, stable on the chest x-ray, status post recent bronchoscopy with BAL on 06/24/2021, and BAL cultures were negative, viral cultures have been negative, COVID-19 PCR was negative 3 Recent hospitalization for acute exacerbation of COPD, and bilateral pneumonia, discharged home on 06/25/2021 to complete 2 week course of Augmentin 4 Bullous emphysema/COPD, on home oxygen since the recent hospitalization on 4 L 5 Increased swelling in bilateral lower extremities, possibly related to acute exacerbation of systolic CHF 6 Prior history of myocardial infarction 7 History of paroxysmal A. fib status post AICD and pacemaker insertion 8 CAD with prior stenting 9 History of CHF with systolic dysfunction 10 Ischemic cardiomyopathy with EF of 30-35% 11 History of laparoscopic bilateral inguinal hernia repair 12 History of prescription narcotic abuse currently on Suboxone 13 History of anxiety Plan: The persistent fever is obviously concerning. We'll monitor the patient for another 24-48 hours. The fever remains unchanged, no other options other than repeating a bronchoscopy for another lavage. Meanwhile, I'll of the cultures of been negative. Continue same antibiotic coverage. No significant or worsening clinically. Chest x-ray findings are relatively stable. Keep O2 at 2 L. We'll follow.
--- NOTE | 2021-07-05 17:54 | P.PN ---
Subjective Progress Note Date: 07/05/21 Principal diagnosis: Pneumonia Patient is a 56-year-old male who was recently admitted to the hospital and was diagnosed with pneumonia status post bronchoscopy and those culture were negative patient was subsequently discharged home on oral antibiotics and currently admitted to the hospital within 72 hours with a fever. On today's evaluation that is grade 07/05/2021, the patient fever pattern has improved with a T-max of 100.3F, the patient is feeling slightly better, the patient denies having any chest pain he did have a cough but not bringing up any sputum, the patient denies hemoptysis no nausea no vomiting no abdominal pain and no diarrhea Objective - Vital Signs Vital signs: Vital Signs Temp 100.3 F H 07/05/21 14:00 Pulse 112 H 07/05/21 14:00 Resp 15 07/05/21 14:00 BP 102/58 07/05/21 14:00 Pulse Ox 85 L 07/05/21 14:00 Intake & Output 07/04/21 07/05/21 07/05/21 18:59 06:59 18:59 Intake Total 1676 1858 Balance 1676 1858 Intake: Oral 121 1858 Other: Voiding Method Toilet Toilet Toilet # Voids 3 2 - Exam GENERAL DESCRIPTION: Middle-aged male lying in bed in no distress RESPIRATORY SYSTEM: Unlabored breathing , decreased breath sounds at bases HEART: S1 S2 regular rate and rhythm , ABDOMEN: Soft , no tenderness EXTREMITIES: No edema feet - Labs CBC & Chem 7: 07/04/21 07:21 07/04/21 07:21 Labs: Abnormal Lab Results - Last 24 Hours (Table) 07/05/21 07/05/21 07/05/21 Range/Units 06:30 06:30 06:30 ESR 82 H (0-20) mm/Hr C-Reactive Protein 24.90 H (0.00-0.80) mg/dL Procalcitonin 0.68 H (0.02-0.09) ng/mL Microbiology - Last 24 Hours (Table) 07/02/21 05:19 Blood Culture - Preliminary Blood No Growth after 72 hours 06/29/21 19:24 Blood Culture - Preliminary Blood No Growth after 120 hours 06/29/21 15:40 Blood Culture - Preliminary Blood No Growth after 120 hours Assessment and Plan (1) Febrile illness, acute Current Visit: Yes Status: Acute Code(s): R50.9 - FEVER, UNSPECIFIED SNOMED Code(s): 019305198 (2) Pneumonia Current Visit: Yes Status: Acute Code(s): J18.9 - PNEUMONIA, UNSPECIFIED OR GANISM SNOMED Code(s): 669292420 Plan: 1patient presented to hospital with a fever increasing shortness of breath and this patient was recently diagnosed with the right-sided pneumonia status post bronchoscopy and was culture showed Jacey likely colonizer, failing outpatient oral antibiotic therapy. 2sputum cultures as well as urine for Legionella antigen has been negative [address] of the chest did show progressive pulmonary consolidation, likely representing progressive pneumonia, sputum culture has been requested which are currently pending and also waiting for cryptococcal antigen 4-patient to continue with Unasyn and Diflucan 400 mg daily however if persistent fever may benefit from repeat bronchoscopy and lavage Time with Patient: Less than 30
[2021-07-05] MEDS: ATORVASTATIN 40 MG TAB PO SCH (20:10)
[2021-07-05] MEDS: carvediloL 3.125 MG TAB PO SCH (20:10)
[2021-07-06] MEDS: AMPICILLIN-SULBACTAM 3 GM in SODIUM CHLORIDE 0.9% 100 ML IVPB SCH ×4 (05:32→23:17)
[2021-07-06] MEDS: ACETAMINOPHEN TAB 325 MG TAB PO SCH ×4 (05:32→23:17)
[2021-07-06] MEDS: NICOTINE 21MG/24HR PATCH TRANSDERM SCH (07:45)
[2021-07-06] MEDS: FLUCONAZOLE 100 MG TAB PO SCH (07:45)
[2021-07-06] MEDS: polyethylene glycoL 3350 17 GM POWD.PACK PO SCH (07:45)
[2021-07-06] MEDS: DOCUSATE 100 MG CAP PO SCH ×2 (07:46→20:54)
[2021-07-06] MEDS: ASPIRIN 81 MG PO SCH (07:46)
[2021-07-06] MEDS: FUROSEMIDE 40 MG TAB PO SCH (07:46)
[2021-07-06] MEDS: HEPARIN SODIUM,PORCINE/PF 5,000 UNIT/0.5 ML SYRINGE SQ SCH ×3 (07:50→23:16)
[2021-07-06] MEDS: SYMBICORT 80-4.5 MCG INHALER INHALATION SCH ×2 (08:47→19:43)
[2021-07-06] MEDS: IPRATROPIUM-ALBUTEROL 3 ML NEB INHALATION PRN ×2 (08:47→15:41)
[2021-07-06] MEDS: IPRATROPIUM 0.5 MG/2.5 ML NEBU INHALATION SCH ×4 (08:48→19:42)
[2021-07-06 08:56] LABS: Basophils # (A) 0.05 X 10*3/uL (0.00-0.10); Basophils % (A) 0.3 %; Eosinophils # (A) 0.73 X 10*3/uL (0.04-0.35); Eosinophils % (A) 4.7 %; HCT 29.3 % (39.6-50.0); HGB 9.4 g/dL (13.0-17.0); Immature Grans, Automated 1.2 %; Lymphocytes # (A) 1.28 X 10*3/uL (0.90-5.00); Lymphocytes % (A) 8.2 %; MCH 27.2 pg (27.0-32.0); MCHC 32.1 g/dL (32.0-37.0); MCV 84.7 fL (80.0-97.0); Mean Platelet Volume 9.8 fL (9.5-12.2); Monocytes # (A) 1.03 X 10*3/uL (0.20-1.00); Monocytes % (A) 6.6 %; NRBC Per 100 WBC 0 /100 WBCS (0.0-0.0); Neutrophils # (A) 12.37 X 10*3/uL (1.80-7.70); Platelet Count 598 X 10*3/uL (140-440); RBC 3.46 X 10*6/uL (4.40-5.60); RDW 15.3 % (11.5-14.5); WBC 15.64 X 10*3/uL (4.50-10.00)
[2021-07-06 09:28] LABS: African American GFR (CKD) 129.4 (60.0-200.0); Albumin 2.4 g/dL (3.8-4.9); Albumin/Globulin Ratio 0.75 (1.60-3.17); Anion Gap 12.9 mmol/L (10.00-18.00); BUN/Creat Ratio 26.67 Ratio (12.00-20.00); Bilirubin, Conjugated 0.22 mg/dL (0.20-0.40); Bilirubin,Unconjugated 0.18 mg/dL (0.20-1.00); Calcium 8.3 mg/dL (8.7-10.3); Carbon Dioxide 25.1 mmol/L (20.0-27.5); Globulin 3.2 g/dL (1.6-3.3); Non-African American GFR(CKD) 111.6 (60.0-200.0); Potassium 4.3 mmol/L (3.5-5.5); Total Bilirubin 0.4 mg/dL (0.30-1.20); Total Protein 5.6 g/dL (6.2-8.2)
--- NOTE | 2021-07-06 09:51 | P.PN ---
Subjective Progress Note Date: 07/06/21 Still having breakthrough fevers despite ATC tylenol. Was able to cough up sputum for re-culture and re-AFB stain. Objective - Vital Signs Vital signs: Vital Signs Temp 98 F 07/06/21 07:30 Pulse 107 H 07/06/21 09:03 Resp 18 07/06/21 07:30 BP 91/61 07/06/21 07:30 Pulse Ox 96 07/06/21 07:30 Intake & Output 07/05/21 07/06/21 07/06/21 18:59 06:59 18:59 Intake Total 2338 120 Balance 2338 120 Intake: Oral 2338 120 Other: Voiding Method Toilet Toilet # Voids 2 2 # Bowel Movements 1 1 - Exam Gen: awake, alert HEENT: normocephalic, atraumatic, good hearing acuity, moist mucous membranes Resp: impaired air exchange, breathing comfortably with no accessory muscle use CVS: good distal perfusion x 4, GI: soft, NTTP, ND : no SPT, no CVAT, sung catheter not present MSK: no pitting edema, no clubbing Neuro: non-focal, moving all extremities Psych: cooperative, euthymic mood - Labs CBC & Chem 7: 07/06/21 06:31 07/06/21 06:31 Labs: Abnormal Lab Results - Last 24 Hours (Table) 07/05/21 07/06/21 07/06/21 Range/Units 06:30 06:31 06:31 WBC 15.64 H (4.50-10.00) X 10*3/uL RBC 3.46 L (4.40-5.60) X 10*6/uL Hgb 9.4 L (13.0-17.0) g/dL Hct 29.3 L (39.6-50.0) % RDW 15.3 H (11.5-14.5) % Plt Count 598 H (140-440) X 10*3/uL Immature Gran # 0.18 H (0.00-0.04) X 10*3/uL Neutrophils # 12.37 H (1.80-7.70) X 10*3/uL Monocytes # 1.03 H (0.20-1.00) X 10*3/uL Eosinophils # 0.73 H (0.04-0.35) X 10*3/uL ESR 82 H (0-20) mm/Hr Sodium (135-145) mmol/L Chloride (96-109) mmol/L BUN/Creatinine Ratio (12.00-20.00) Ratio Calcium (8.7-10.3) mg/dL Unconjugated Bilirubin (0.20-1.00) mg/dL AST (14-35) U/L Alkaline Phosphatase (41-126) U/L Total Protein (6.2-8.2) g/dL Albumin (3.8-4.9) g/dL Albumin/Globulin Ratio (1.60-3.17) g/dL IgE 1651.00 H (0.00-114.00) IU/mL 07/06/21 Range/Units 06:31 WBC (4.50-10.00) X 10*3/uL RBC (4.40-5.60) X 10*6/uL Hgb (13.0-17.0) g/dL Hct (39.6-50.0) % RDW (11.5-14.5) % Plt Count (140-440) X 10*3/uL Immature Gran # (0.00-0.04) X 10*3/uL Neutrophils # (1.80-7.70) X 10*3/uL Monocytes # (0.20-1.00) X 10*3/uL Eosinophils # (0.04-0.35) X 10*3/uL ESR (0-20) mm/Hr Sodium 133 L (135-145) mmol/L Chloride 95 L (96-109) mmol/L BUN/Creatinine Ratio 26.67 H (12.00-20.00) Ratio Calcium 8.3 L (8.7-10.3) mg/dL Unconjugated Bilirubin 0.18 L (0.20-1.00) mg/dL AST 36 H (14-35) U/L Alkaline Phosphatase 158 H (41-126) U/L Total Protein 5.6 L (6.2-8.2) g/dL Albumin 2.4 L (3.8-4.9) g/dL Albumin/Globulin Ratio 0.75 L (1.60-3.17) g/dL IgE (0.00-114.00) IU/mL Microbiology - Last 24 Hours (Table) 07/02/21 05:19 Blood Culture - Preliminary Blood No Growth after 96 hours 06/29/21 19:24 Blood Culture - Final Blood No Growth after 144 hours 06/29/21 15:40 Blood Culture - Final Blood No Growth after 144 hours Assessment and Plan Assessment: Pneumonia, failed outpatient treatment with sepsis AE COPD Acute on chronic hypoxic respiratory failure - levoquin/zosyn - PICC line pending 07/03 - Await cultures. - Beta D glucan, < 31 (negative) - MRSA negative - HIV negative - Pulm and ID recs - Bronchodilators - pulm hygeine - Blood cultures negative to date. - Repeat Sputum Cx and AFB stain on 07/04 - CrAg, pending - Galactomannan pending - Immunoglobulin panel pending - IgE level elevated Acute exacerbation of systolic CHF with EF 30-35 % ASCAD - Oral Lasix - ASA, lipitor, BB - entresto on hold due to recent hypotension on last hospital stay. Patient plans on following up with his primary bay stocker regarding this. Thrombocytosis - chronic at baseline - follow CBC Tobacco abuse - cessation - nicotine replacement if needed Underweight with BMI 18.2 - dietitian recs DVT prophylaxis: heparin Anticipated discharge: pending clinical course Anticipated discharge place: home
[2021-07-06] MEDS: NON FORMULARY DRUG (Buprenorphine Hcl/Naloxone Hcl [Suboxone 8 Mg-2 Mg Sl Film] 1 EACH Fil SUBLINGUAL SCH (12:19)
--- NOTE | 2021-07-06 13:47 | P.PN ---
Subjective Progress Note Date: 07/06/21 Principal diagnosis: swelling in BLE 56-year-old male patient with known history of COPD, chronic smoker, CAD, paroxysmal A. fib status post pacemaker insertion, chronic CHF with systolic dysfunction, ischemic cardiomyopathy with EF of 30-35% with AICD placement, anxiety who was recently hospitalized for acute exacerbation of COPD, complicated with possible pneumonia. Patient's chest x-ray showed bilateral airspace disease, underlying emphysema. CT angiogram of the chest showed no evidence of pulmonary embolism, extensive bullous pulmonary emphysema, with extensive honeycombing infiltrate in the mid and upper lung hendricks. Patient was treated with a combination of Rocephin and Zithromax initially, however he continued to have intermittent febrile episodes and subsequently he was switched to Zosyn by infectious disease service. Patient ended up having bronchoalveolar lavage on 06/24/[address] Ulloa, and BAL cultures showed no growth other than Jacey albicans. A separate BAL cultures were taken from right upper lobe and left lower lobe, cytology was negative for diagnostic malignancy. BAL cultures and viral cultures were negative. Patient was clinically improving, after being switched over to Zosyn patient's fever pattern had improved, and subsequently he was discharged home on oral course of Augmentin, and we recommended at least 2 week treatment with Augmentin, completion of prednisone taper and patient was sent home on home oxygen at 4 L. Patient states he was discharged on a Tuesday, by Tuesday night he started having increased swelling in his lower extremities, he could hardly get his socks on. At the same time he started developing a fever. He states he picked up his antibiotics and was taking them, he denied any worsening shortness of breath, no cough, no phlegm production, no hemoptysis no chest pain. No swelling or tenderness in the bilateral calves. He came into the emergency department for reevaluation on 06/29/2021. His temperature on admission was 101.4F. Chest x-ray showed findings similar to the prior exam with bilateral airspace disease, increased interstitium and underlying emphysema. Admission labs showed white blood cell count of 14.3, hemoglobin 12.4, sodium is 133, the rest of electrolytes were unremarkable, B1 is 16 creatinine 0.55, proBNP was 1520, troponin was 0.017, AST was 46, ALT was 158, alk phos was 146, urinalysis showed no evidence of infection, patient tested negative for COVID 19. Patient was started on vancomycin for antibiotic coverage, and Zosyn. He was started on oral Lasix a fter a single dose of IV Lasix 40 mg. Currently ankle edema is improving, he is diuresing, he continues on the bronchodilators. On 07/01/2021 patient seen in follow-up on medical surgical floor, he states he is breathing comfortably, he is currently on 2 L of oxygen his pulse ox is 91- 93%. His ankle swelling is significantly down, this morning patient was able to produce a sputum specimen which was sent for culture, follow-up chest x-ray today showing confluent densities in the upper lobes, and worsening pneumonia. Patient currently remains on Zosyn and vancomycin. No fever or chills over night. White blood cell count is 10.6, hemoglobin is 10.9, sodium is 131, the rest of the electrolytes and renal profile were unremarkable, LFTs are improved. No chest discomfort, no hemoptysis. Patient continues on nebulized bronchodilators, he is on oral dose of Lasix 40 mg daily. On 07/02/2021 patient seen in follow-up on medical surgical floor. He is still having intermittent fevers, T-max in last 24 hours 101.8F, patient was initially covered with a combination of Zosyn and vancomycin, ID service recommended discontinuing vancomycin and patient is currently on Zosyn and Levaquin has been added. Urine for Legionella antigen will be sent. Cultures reviewed, blood cultures have been negative, sputum Gram stain showing rare PMNs, few gram-positive cocci in clusters, few budding yeast. BAL cultures showed Jacey albicans. Today's labs reviewed, with blood cell count 12.3, hemoglobin is 9.3, sodium is 1:0, potassium is 4.3, B1 17 creatinine 0.57, CRP is 20.8, and pro-calcitonin level was 0.56. No worsening cough or hemoptysis, no chest pain, no altered mentation, hemodynamically has been stable, he has been tolerating ambulation in the room. Lower extremity swelling has significantly improved, patient remains on once daily dose of Lasix. 07/03/2021 patient seen in follow-up. He states there is no worsening dyspnea, occasional cough, no significant phlegm production, no chest discomfort, he remains on 2 L of oxygen the pulse ox of 90-93%, his fever pattern has improved in the last 24 hours, although the patient still has persistent low-grade fevers with a T-max of 100.6F. Room air pulse ox is 87%, and patient is very frustrated this morning as he was placed on the schedule for possible bronchoscopy with BAL without proper communication with him. Dr. Lundberg is at the bedside, and patient clinically has not worsened, he is currently on a combination of Levaquin and Zosyn, there has been no growth on BAL cultures from last admission, or blood or sputum culture, nasal swab for MRSA was negative. Follow blood cultures show no growth. Legionella urine antigen was negative. Yesterday CT of the chest was completed showing progressive chronic consolid ation, likely representing progressive pneumonia, enlarged lymph nodes likely reactive. On 07/06/2021 patient seen in follow-up. Patient continues to have intermittent fevers, at 101.8F at noon today. Currently remains on Unasyn and Diflucan, no new growth on cultures including BAL from 06/23/2021. Clinically he appears to be breathing fairly comfortably, no worsening cough or dyspnea, does have exertional dyspnea, no chest discomfort. Patient is on 2 L, his pulse ox of 92- 96%. His chest x-ray from yesterday showed persistent suprahilar and upper lobe airspace infiltrate with underlying cystic changes. Today's labs have been reviewed, with blood cell count is 15.6, hemoglobin is 9.4, platelet count is 592, sodium is 133, potassium is 4.3, chloride is 95, BUN is 16, creatinine 0.6, Legionella urine antigen was negative. Objective - Vital Signs Vital signs: Vital Signs Temp 101.8 F H 07/06/21 11:57 Pulse 107 H 07/06/21 09:03 Resp 20 07/06/21 08:00 BP 91/61 07/06/21 07:30 Pulse Ox 91 L 07/06/21 11:30 Intake & Output 07/05/21 07/06/21 07/06/21 18:59 06:59 18:59 Intake Total 2338 120 Balance 2338 120 Intake: Oral 2338 120 Other: Voiding Method Toilet Toilet # Voids 2 2 # Bowel Movements 1 1 - Exam GENERAL EXAM: Alert, very pleasant, 56-year-old white female, on 2 L of oxygen pulse ox of 91-93%, comfortable in no apparent distress. HEAD: Normocephalic/atraumatic. EYES: Normal reaction of pupils, equal size. Conjunctiva pink, sclera white. NOSE: Clear with pink turbinates. THROAT: No erythema or exudates. NECK: No masses, no JVD, no thyroid enlargement, no adenopathy. CHEST: No chest wall deformity. Symmetrical expansion. LUNGS: Equal air entry with no crackles, wheeze, rhonchi or dullness. CVS: Regular rate and rhythm, normal S1 and S2, no gallops, no murmurs, no rubs ABDOMEN: Soft, nontender. No hepatosplenomegaly, normal bowel sounds, no guarding or rigidity. EXTREMITIES: No clubbing, no edema, no cyanosis, 2+ pulses and upper and lower extremities. MUSCULOSKELETAL: Muscle strength and tone normal. SPINE: No scoliosis or deformity SKIN: No rashes CENTRAL NERVOUS SYSTEM: Alert and oriented -3. No focal deficits, tone is normal in all 4 extremities. PSYCHIATRIC: Alert and oriented -3. Appropriate affect. Intact judgment and insight. - Labs CBC & Chem 7: 07/06/21 06:31 07/06/21 06:31 Labs: Abnormal Lab Results - Last 24 Hours (Table) 07/06/21 07/06/21 07/06/21 Range/Units 06:31 06:31 06:31 WBC 15.64 H (4.50-10.00) X 10*3/uL RBC 3.46 L (4.40-5.60) X 10*6/uL Hgb 9.4 L (13.0-17.0) g/dL Hct 29.3 L (39.6-50.0) % RDW 15.3 H (11.5-14.5) % Plt Count 598 H (140-440) X 10*3/uL Immature Gran # 0.18 H (0.00-0.04) X 10*3/uL Neutrophils # 12.37 H (1.80-7.70) X 10*3/uL Monocytes # 1.03 H (0.20-1.00) X 10*3/uL Eosinophils # 0.73 H (0.04-0.35) X 10*3/uL Sodium 133 L (135-145) mmol/L Chloride 95 L (96-109) mmol/L BUN/Creatinine Ratio 26.67 H (12.00-20.00) Ratio Calcium 8.3 L (8.7-10.3) mg/dL Unconjugated Bilirubin 0.18 L (0.20-1.00) mg/dL AST 36 H (14-35) U/L Alkaline Phosphatase 158 H (41-126) U/L Total Protein 5.6 L (6.2-8.2) g/dL Albumin 2.4 L (3.8-4.9) g/dL Albumin/Globulin Ratio 0.75 L (1.60-3.17) g/dL IgE 1651.00 H (0.00-114.00) IU/mL Microbiology - Last 24 Hours (Table) 07/02/21 05:19 Blood Culture - Preliminary Blood No Growth after 96 hours 06/29/21 19:24 Blood Culture - Final Blood No Growth after 144 hours 06/29/21 15:40 Blood Culture - Final Blood No Growth after 144 hours Assessment and Plan Plan: Assessment: #1. Persistent fever, despite antibiotics, rule out bacteremia, blood cultures have been sent, current coverage with Zosyn and Levaquin. COVID-19 PCR was negative. Vancomycin has been discontinued. #2. Bilateral upper lobe pneumonia, stable on the chest x-ray, status post recent bronchoscopy with BAL on 06/24/2021, and BAL cultures were negative, viral cultures have been negative, COVID-19 PCR was negative #3. Recent hospitalization for acute exacerbation of COPD, and bilateral pneumonia, discharged home on 06/25/2021 to complete 2 week course of Augmentin #4. Bullous emphysema/COPD, on home oxygen since the recent hospitalization on 4 L #5. Increased swelling in bilateral lower extremities, possibly related to acute exacerbation of systolic CHF #6. Prior history of myocardial infarction #7. History of paroxysmal A. fib status post AICD and pacemaker insertion #8. CAD with prior stenting #9. History of CHF with systolic dysfunction #10. Ischemic cardiomyopathy with EF of 30-35% #11. History of laparoscopic bilateral inguinal hernia repair #12. 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 History of anxiety Plan: Continue current antibiotics Patient continues to have intermittent fevers No new growth on his cultures including BAL cultures We discussed bronchoscopy with BAL and possible biopsies tomorrow with the patient He is agreeable to proceed He will need for general anesthesia, and intubation for the procedure Will need fluoroscopy Nothing by mouth after midnight We'll need consent for the procedure This was explained to the patient and he is agreeable with the plan I have personally seen and examined the patient, performed the documentation and the assessment and plan as written. Number of minutes spent on the visit: [15] Time with Patient: Less than 30
[2021-07-06] MEDS ORDERED: VANCOMYCIN IV PER PHARMACY 1 EACH MISC MISCELLANE PRN (14:27)
[2021-07-06] MEDS: VANCOMYCIN 1,000 MG in SODIUM CHLORIDE 0.9% 250 ML IVPB SCH (15:50)
[2021-07-06] MEDS: carvediloL 3.125 MG TAB PO SCH (20:54)
[2021-07-06] MEDS: ATORVASTATIN 40 MG TAB PO SCH (20:54)
[2021-07-07] MEDS: VANCOMYCIN 1,000 MG in SODIUM CHLORIDE 0.9% 250 ML IVPB SCH ×3 (01:08→16:42)
[2021-07-07 04:46] LABS: African American GFR (CKD) >90 (>60 ml/min/1.73 sqM); Non-African American GFR(CKD) >90 (>60 ml/min/1.73 sqM)
[2021-07-07] MEDS: ACETAMINOPHEN TAB 325 MG TAB PO SCH ×4 (05:43→23:03)
[2021-07-07] MEDS: AMPICILLIN-SULBACTAM 3 GM in SODIUM CHLORIDE 0.9% 100 ML IVPB SCH ×4 (05:44→23:03)
[2021-07-07] MEDS: IPRATROPIUM 0.5 MG/2.5 ML NEBU INHALATION SCH ×4 (07:21→19:42)
[2021-07-07] MEDS: SYMBICORT 80-4.5 MCG INHALER INHALATION SCH ×2 (07:21→19:41)
[2021-07-07] MEDS: NON FORMULARY DRUG (Buprenorphine Hcl/Naloxone Hcl [Suboxone 8 Mg-2 Mg Sl Film] 1 EACH Fil SUBLINGUAL SCH (08:46)
[2021-07-07] MEDS: HEPARIN SODIUM,PORCINE/PF 5,000 UNIT/0.5 ML SYRINGE SQ SCH ×3 (08:46→23:04)
[2021-07-07] MEDS: ASPIRIN 81 MG PO SCH (08:46)
[2021-07-07] MEDS: DOCUSATE 100 MG CAP PO SCH ×2 (08:47→20:04)
[2021-07-07] MEDS: FLUCONAZOLE 100 MG TAB PO SCH (08:47)
[2021-07-07] MEDS: FUROSEMIDE 40 MG TAB PO SCH (08:47)
[2021-07-07] MEDS: NICOTINE 21MG/24HR PATCH TRANSDERM SCH (08:51)
[2021-07-07] MEDS: polyethylene glycoL 3350 17 GM POWD.PACK PO SCH (08:52)
--- NOTE | 2021-07-07 12:07 | P.PN ---
Subjective Progress Note Date: 07/07/21 56-year-old male patient with known history of COPD, chronic smoker, CAD, paroxysmal A. fib status post pacemaker insertion, chronic CHF with systolic dysfunction, ischemic cardiomyopathy with EF of 30-35% with AICD placement, anxiety who was recently hospitalized for acute exacerbation of COPD, complica francis with possible pneumonia. Patient's chest x-ray showed bilateral airspace disease, underlying emphysema. CT angiogram of the chest showed no evidence of pulmonary embolism, extensive bullous pulmonary emphysema, with extensive honeycombing infiltrate in the mid and upper lung hendricks. Patient was treated with a combination of Rocephin and Zithromax initially, however he continued to have intermittent febrile episodes and subsequently he was switched to Zosyn by infectious disease service. Patient ended up having bronchoalveolar lavage on 06/24/[address] Ulloa, and BAL cultures showed no growth other than Jacey albicans. A separate BAL cultures were taken from right upper lobe and left lower lobe, cytology was negative for diagnostic malignancy. BAL cultures and viral cultures were negative. Patient was clinically improving, after being switched over to Zosyn patient's fever pattern had improved, and subsequently he was discharged home on oral course of Augmentin, and we recommended at least 2 week treatment with Augmentin, completion of prednisone taper and patient was sent home on home oxygen at 4 L. Patient states he was discharged on a Tuesday, by Tuesday night he started having increased swelling in his lower extremities, he could hardly get his socks on. At the same time he started developing a fever. He states he picked up his antibiotics and was taking them, he denied any worsening shortness of breath, no cough, no phlegm production, no hemoptysis no chest pain. No swelling or tenderness in the bilateral calves. He came into the emergency department for reevaluation on 06/29/2021. His temperature on admission was 101.4F. Chest x-ray showed findings similar to the prior exam with bilateral airspace disease, increased interstitium and underlying emphysema. Admission labs showed white blood cell count of 14.3, hemoglobin 12.4, sodium is 133, the rest of electrolytes were unremarkable, B1 is 16 creatinine 0.55, proBNP was 1520, troponin was 0.017, AST was 46, ALT was 158, alk phos was 146, urinalysis showed no evidence of infection, patient tested negative for COVID 19. Patient was started on vancomycin for antibiotic coverage, and Zosyn. He was started on oral Lasix after a single dose of IV Lasix 40 mg. Currently ankle edema is improving, he is diuresing, he continues on the bronchodilators. On 07/01/2021 patient seen in follow-up on medical surgical floor, he states he is breathing comfortably, he is currently on 2 L of oxygen his pulse ox is 91- 93%. His ankle swelling is significantly down, this morning patient was able to produce a sputum specimen which was sent for culture, follow-up chest x-ray today showing confluent densities in the upper lobes, and worsening pneumonia. Patient currently remains on Zosyn and vancomycin. No fever or chills overnight. White blood cell count is 10.6, hemoglobin is 10.9, sodium is 131, the rest of the electrolytes and renal profile were unremarkable, LFTs are improved. No chest discomfort, no hemoptysis. Patient continues on nebulized bronchodilators, he is on oral dose of Lasix 40 mg daily. On 07/02/2021 patient seen in follow-up on medical surgical floor. He is still having intermittent fevers, T-max in last 24 hours 101.8F, patient was initially covered with a combination of Zosyn and vancomycin, ID service recommended discontinuing vancomycin and patient is currently on Zosyn and Levaquin has been added. Urine for Legionella antigen will be sent. Cultures reviewed, blood cultures have been negative, sputum Gram stain showing rare PMNs, few gram-positive cocci in clusters, few budding yeast. BAL cultures showed Jacey albicans. Today's labs reviewed, with blood cell count 12.3, hemoglobin is 9.3, sodium is 1:0, potassium is 4.3, B1 17 creatinine 0.57, CRP is 20.8, and pro-calcitonin level was 0.56. No worsening cough or hemoptysis, no chest pain, no altered mentation, hemodynamically has been stable, he has been tolerating ambulation in the room. Lower extremity swelling has significantly improved, patient remains on once daily dose of Lasix. 07/03/2021 patient seen in follow-up. He states there is no worsening dyspnea, occasional cough, no significant phlegm production, no chest discomfort, he remains on 2 L of oxygen the pulse ox of 90-93%, his fever pattern has improved in the last 24 hours, although the patient still has persistent low-grade fevers with a T-max of 100.6F. Room air pulse ox is 87%, and patient is very frust rated this morning as he was placed on the schedule for possible bronchoscopy with BAL without proper communication with him. Dr. Lundberg is at the bedside, and patient clinically has not worsened, he is currently on a combination of Levaquin and Zosyn, there has been no growth on BAL cultures from last admission, or blood or sputum culture, nasal swab for MRSA was negative. Follow blood cultures show no growth. Legionella urine antigen was negative. Yesterday CT of the chest was completed showing progressive chronic consolidation, likely representing progressive pneumonia, enlarged lymph nodes likely reactive. The patient is seen today 07/04/2021 in follow-up on the regular medical floor. He is currently sitting up in bed. Awake and alert in no acute distress. He is currently maintaining O2 saturations in the mid 90s on 2 L/m per nasal cannula. He did spike another fever this morning of 102.6. No worsening shortness of breath, cough or congestion. Blood cultures are revealing no growth. Sputum culture revealed no growth. White count 13.7. Hemoglobin 9.5. Platelets 587. Sodium 132. Potassium 4.4. BUN 16. Creatinine 0.7. Glucose 131. Antibiotics have been modified to Unasyn and Levaquin. He remains on oral diuretics. NicoDerm patch in place. The patient is seen today 07/07/2021 in follow-up on the regular medical floor. He is currently sitting up in bed. Awake and alert in no acute distress. He did have some issues with increased hypoxemia while laying flat last night. He is currently on 6 L high flow nasal cannula with O2 saturation in low 90s. He's been afebrile. Hemodynamically stable. Sputum culture reveals no growth. AFB results pending. Blood culture reveals no growth. Creatinine 0.60. He is continued on Symbicort, DuoNeb inhalations antibiotics in the form of vancomycin and Unasyn. Remains on oral diuretics. Heparin for DVT prophylaxis. NicoDerm patch is in place. Objective - Vital Signs Vital signs: Vital Signs Temp 99 F 07/07/21 07:15 Pulse 109 H 07/07/21 11:39 Resp 18 07/07/21 07:15 BP 98/59 07/07/21 07:15 Pulse Ox 91 L 07/07/21 07:22 Intake & Output 07/06/21 07/07/21 07/07/21 18:59 06:59 18:59 Intake Total 240 Balance 240 Intake: Oral 240 Other: # Voids 1 2 - Exam GENERAL EXAM: Alert, very pleasant, 56-year-old male patient, on 6 L of oxygen pulse ox of 91%, comfortable in no apparent distress. HEAD: Normocephalic/atraumatic. EYES: Normal reaction of pupils, equal size. Conjunctiva pink, sclera white. NOSE: Clear with pink turbinates. THROAT: No erythema or exudates. NECK: No masses, no JVD, no thyroid enlargement, no adenopathy. CHEST: No chest wall deformity. Symmetrical expansion. LUNGS: Equal air entry with few scattered rhonchi. Diminished CVS: Regular rate and rhythm, normal S1 and S2, no gallops, no murmurs, no rubs ABDOMEN: Soft, nontender. No hepatosplenomegaly, normal bowel sounds, no guarding or rigidity. EXTREMITIES: No clubbing, no edema, no cyanosis, 2+ pulses and upper and lower extremities. MUSCULOSKELETAL: Muscle strength and tone normal. SPINE: No scoliosis or deformity SKIN: No rashes CENTRAL NERVOUS SYSTEM: No focal deficits, tone is normal in all 4 extremities. PSYCHIATRIC: Alert and oriented -3. Appropriate affect. Intact judgment and insight. - Labs CBC & Chem 7: 07/06/21 06:31 07/07/21 03:52 Labs: Abnormal Lab Results - Last 24 Hours (Table) 07/07/21 Range/Units 03:52 Creatinine 0.60 L (0.66-1.25) mg/dL Microbiology - Last 24 Hours (Table) 07/06/21 11:53 Gram Stain - Preliminary Sputum Sputum Culture - Preliminary 07/02/21 05:19 Blood Culture - Preliminary Blood No Growth after 120 hours 07/06/21 11:53 Acid Fast Bacilli Culture - Preliminary Sputum Assessment and Plan Assessment: 1 Persistent fever, despite antibiotics, rule out bacteremia, blood cultures reveal no growth, sputum culture revealing no growth, AFB pending. Current coverage with Unasyn and vancomycin. COVID-19 PCR was negative. Plan is for b ronchoscopy with BAL, brushings and biopsies today 07/07/2021. 2 Bilateral upper lobe pneumonia, stable on the chest x-ray, status post recent bronchoscopy with BAL on 06/24/2021, and BAL cultures were negative, viral cultures have been negative, COVID-19 PCR was negative 3 Recent hospitalization for acute exacerbation of COPD, and bilateral pneumonia, discharged home on 06/25/2021 to complete 2 week course of Augmentin 4 Bullous emphysema/COPD, on home oxygen since the recent hospitalization on 4 L 5 Increased swelling in bilateral lower extremities, possibly related to acute exacerbation of systolic CHF 6 Prior history of myocardial infarction 7 History of paroxysmal A. fib status post AICD and pacemaker insertion 8 CAD with prior stenting 9 History of CHF with systolic dysfunction 10 Ischemic cardiomyopathy with EF of 30-35% 11 History of laparoscopic bilateral inguinal hernia repair 12 History of prescription narcotic abuse currently on Suboxone 13 History of anxiety Plan: Patient was seen and evaluated Plan is for bronchoscopy with BAL and biopsies today Continued on vancomycin and Unasyn for now Titrate the FiO2 as tolerated Increase his activity as tolerated We will continue to follow I have personally seen and examined the patient, performed the documentation and the assessment and plan as written. Number of minutes spent on the visit: 10.
[2021-07-07] MEDS ORDERED: PROPOFOL 10 MG/ML 20 ML VIAL IV ONE (12:31)
[2021-07-07] MEDS ORDERED: SUCCINYLCHOLINE CHLORIDE 100 MG/5 ML SYR IV ONE (12:31)
[2021-07-07] MEDS ORDERED: MIDAZOLAM 2 MG/2 ML VIAL ONE (12:31)
[2021-07-07] MEDS ORDERED: LIDOCAINE 1% INJ 10MG/ML (20 ML MDV) ONE (12:31)
[2021-07-07] MEDS ORDERED: fentaNYL (PF) 50 MCG/ML 2 ML AMP ONE (12:31)
[2021-07-07] MEDS ORDERED: IV FLUID CONTINUATION 1,000 ML IV ONE (12:44)
--- NOTE | 2021-07-07 13:57 | XR ---
EXAMINATION TYPE: XR chest 1V portable DATE OF EXAM: 07/07/2021 Comparison: 07/05/2021 and 06/25/2021 Clinical History: 56-year-old male post-bronch Findings: Left anterior chest wall AICD generator with right atrial and right ventricular leads. Right PICC tip near the cavoatrial junction. Some coronary stents are suspected. Heart normal size. Hyperinflation. Reticular and patchy confluent upper and mid lung opacities. Changes especially at the right midlung have increased compared to 06/25/2021. Interstitial change in the right lower lung has increased from prior. No pleural effusion. No appreciable pneumothorax. Impression: Redemonstrated background COPD with extensive upper and mid lungs interstitial and airspace disease. Additional interstitial changes throughout the right lower lung may be slightly increased. No appreci able pneumothorax.
--- NOTE | 2021-07-07 14:24 | PCN ---
PROCEDURE NOTE PULMONARY/CRITICAL CARE PROCEDURE NOTE: PROCEDURE PERFORMED: Bronchoscopy, airway examination, therapeutic lavage, BAL right middle lobe, brushes right middle lobe, and transbronchial biopsies right middle lobe. OPERATORS: 1. Dr. [place]. 2. Dr. Sheffield. DESCRIPTION OF PROCEDURE: The procedure was done in room 1 [facility]. There was informed consent and universal timeout. Anesthesia provided general anesthesia, including Dr. Strong and Ivory Walker. After the patient was adequately sedated and being fully monitored and under the effects of general anesthesia, the bronchoscope was inserted through the bronchoscope adapter connected to the endotracheal tube. We did a quick inspection of the right upper lobe and its 3 segments, right middle lobe and its 2 segments, right lower lobe and its 5 segments, left upper lobe and its 2 segments, lingula and its 2 segments, and left lower lobe and its 4 segments. There was a mild degree of secretions noted throughout. There was no dominant mass or tumor. Next the bronchoscope was taken into the right middle lobe. Under fluoroscopic guidance, we did brushes to the right middle lobe. Next, multiple transbronchial biopsies were done under fluoroscopic guidance in the right middle lobe. The patient tolerated the procedure well with minimal bleeding. Finally, we did a formal BAL in the right middle lobe. Afterwards, we ensured that there was adequate hemostasis. Again there was minimal bleeding. Any sort of residual secretions or blood was suctioned. The patient was stable throughout the entire procedure. The bronchoscope was withdrawn. The specimen will be sent to the laboratory for analysis. I did speak to the patient's and let her know that everything went well and the procedure was done safely. There was no immediate complication. We looked for pneumothorax by fluoro. We did not see one. A formal chest x-ray was requested. Again, no issues or problems during this procedure, which went very well. MMODL / IJN: [id number] /
--- NOTE | 2021-07-07 14:58 | FL ---
Fluoroscopy support history: Right middle lobe biopsy 20 seconds fluoroscopy time supplied to the referring clinician, single intraoperative image document s the procedure.
[2021-07-07] MEDS: IPRATROPIUM-ALBUTEROL 3 ML NEB INHALATION PRN ×2 (15:28→19:40)
--- NOTE | 2021-07-07 16:09 | P.PN ---
Subjective Progress Note Date: 07/07/21 History of Present Illness H&P Date: 06/29/21 The patient is a 56-year-old male with a PMH of coronary artery disease status post multiple stents, hypertension, severe COPD, systolic CHF, who presents to the emergency room for lower extremity edema and fever. Of note, the patient was recently admitted to the hospital from 06/19 to 06/26 for pneumonia requiring IV antibiotics. The patient had undergone bronchoscopy which was also consistent with pneumonia. The patient's hypoxia and shortness of breath had gradually improved following which the patient was discharged with a course of oral Augmentin. Patient reports that since the day following his discharge, he started having intermittent fevers controlled with Tylenol. He reports compliance with his Augmentin at home. He also reported noticing lower extremity edema predominantly involving the ankles. He denied any additional complaints. Reports gradual improvement in his shortness of breath and denied chest discomfort. Continues to use chronic 2 L nasal cannula oxygen at home. Denied abdominal pain, nausea, vomiting, urinary complaints, diarrhea or headache, neck pain, visual disturbances. Laboratory evaluation was remarkable for leukocytosis of 14.3, sodium 133, glucose 174, ALT 158, alk phos 143, troponin 0.017, proBNP 1520, and unremarkable UA with coronavirus PCR negative. Tmax 101.4F. Chest x-ray revealed improvement in aeration with EKG showing sinus tachycardia at 109 bpm. Patient was seen and examined at the bedside. History of complaining of low- grade fever and shortness of breath. He is currently on 6 L nasal cannula. Scheduled for bronchoscopy today Objective - Vital Signs Vital signs: Vital Signs Temp 98.9 F 07/07/21 14:10 Pulse 104 H 07/07/21 15:39 Resp 18 07/07/21 14:10 BP 94/59 07/07/21 14:50 Pulse Ox 88 L 07/07/21 15:28 Intake & Output 07/06/21 07/07/21 07/07/21 18:59 06:59 18:59 Intake Total 240 150 Balance 240 150 Intake: IV 150 Oral 240 Other: # Voids 1 2 - Exam General: non toxic, no distress, appears older than his stated age. Derm: warm, dry Head: atraumatic, normocephalic, symmetric Eyes: EOMI, no lid lag, anicteric sclera Mouth: no lip lesion, mucus membranes moist Cardiovascular: S1S2 reg, no murmur, positive posterior tibial pulse bilateral, Lungs: Diminished air entry bilaterally with bilateral crackles. Abdominal: soft, nontender to palpation, no guarding, no appreciable organomegaly Ext: no gross muscle atrophy, no edema, no contractures Neuro: CN II-XI grossly intact, no focal neuro deficits Psych: Alert, oriented, appropriate affect - Labs CBC & Chem 7: 07/06/21 06:31 07/07/21 03:52 Labs: Abnormal Lab Results - Last 24 Hours (Table) 07/07/21 Range/Units 03:52 Creatinine 0.60 L (0.66-1.25) mg/dL Microbiology - Last 24 Hours (Table) 07/06/21 11:53 Gram Stain - Preliminary Sputum Sputum Culture - Preliminary 07/02/21 05:19 Blood Culture - Preliminary Blood No Growth after 120 hours 07/06/21 11:53 Acid Fast Bacilli Culture - Preliminary Sputum Assessment and Plan Assessment: Acute on chronic hypoxic respiratory failure Pneumonia, failed outpatient treatment with sepsis -Unasyn and Diflucan per infectious disease - Status post bronchoscopy with bronchoalveolar lavage July 07 - Beta D glucan, < 31 (negative) - Negative HIV - MRSA negative - Pulm and ID recs - Bronchodilators - pulm hygeine - Blood cultures negative to date. - Repeat Sputum Cx and AFB stain on 07/04 - CrAg, pending - Immunoglobulin panel pending - IgE level elevated Acute exacerbation of systolic CHF with EF 30-35 % ASCAD - Oral Lasix - ASA, lipitor, BB - entresto on hold due to recent hypotension on last hospital stay. Patient plans on following up with his primary service now developer regarding this. Bullous emphysema/COPD, on home oxygen since the recent hospitalization on 4 L Thrombocytosis - chronic at baseline - follow CBC Ongoing tobacco abuse - cessation - nicotine replacement if needed Underweight with BMI 18.2 - dietitian recs History of laparoscopic bilateral inguinal hernia repair History of prescription narcotic abuse currently on Suboxone History of anxiety DVT prophylaxis: heparin Anticipated discharge: pending clinical course Anticipated discharge place: home
[2021-07-07] MEDS: carvediloL 3.125 MG TAB PO SCH (20:04)
[2021-07-07] MEDS: ATORVASTATIN 40 MG TAB PO SCH (20:04)
--- NOTE | 2021-07-07 22:31 | P.PN ---
Subjective Progress Note Date: 07/06/21 Principal diagnosis: Pneumonia Patient is a 56-year-old male who was recently admitted to the hospital and was diagnosed with pneumonia status post bronchoscopy and those culture were negative patient was subsequently discharged home on oral antibiotics and currently admitted to the hospital within 72 hours with a fever. On today's evaluation that is grade 07/06/2021, the patient did have a low-grade fever this morning however the patient is feeling slightly better, the patient denies having any chest pain he did have a cough but not bringing up any sputum, the patient denies hemoptysis no nausea no vomiting no abdominal pain and no diarrhea with antibiotic therapy Objective - Vital Signs Vital signs: Vital Signs Temp 101.8 F H 07/06/21 11:57 Pulse 107 H 07/06/21 09:03 Resp 20 07/06/21 08:00 BP 91/61 07/06/21 07:30 Pulse Ox 91 L 07/06/21 11:30 Intake & Output 07/05/21 07/06/21 07/06/21 18:59 06:59 18:59 Intake Total 2338 240 Balance 2338 240 Intake: Oral 2338 240 Other: Voiding Method Toilet Toilet # Voids 2 2 # Bowel Movements 1 1 - Exam GENERAL DESCRIPTION: Middle-aged male lying in bed in no distress RESPIRATORY SYSTEM: Unlabored breathing , decreased breath sounds at bases HEART: S1 S2 regular rate and rhythm , ABDOMEN: Soft , no tenderness EXTREMITIES: No edema feet - Labs CBC & Chem 7: 07/06/21 06:31 07/07/21 03:52 Labs: Abnormal Lab Results - Last 24 Hours (Table) 07/06/21 07/06/21 07/06/21 Range/Units 06:31 06:31 06:31 WBC 15.64 H (4.50-10.00) X 10*3/uL RBC 3.46 L (4.40-5.60) X 10*6/uL Hgb 9.4 L (13.0-17.0) g/dL Hct 29.3 L (39.6-50.0) % RDW 15.3 H (11.5-14.5) % Plt Count 598 H (140-440) X 10*3/uL Immature Gran # 0.18 H (0.00-0.04) X 10*3/uL Neutrophils # 12.37 H (1.80-7.70) X 10*3/uL Monocytes # 1.03 H (0.20-1.00) X 10*3/uL Eosinophils # 0.73 H (0.04-0.35) X 10*3/uL Sodium 133 L (135-145) mmol/L Chloride 95 L (96-109) mmol/L BUN/Creatinine Ratio 26.67 H (12.00-20.00) Ratio Calcium 8.3 L (8.7-10.3) mg/dL Unconjugated Bilirubin 0.18 L (0.20-1.00) mg/dL AST 36 H (14-35) U/L Alkaline Phosphatase 158 H (41-126) U/L Total Protein 5.6 L (6.2-8.2) g/dL Albumin 2.4 L (3.8-4.9) g/dL Albumin/Globulin Ratio 0.75 L (1.60-3.17) g/dL IgE 1651.00 H (0.00-114.00) IU/mL Microbiology - Last 24 Hours (Table) 07/02/21 05:19 Blood Culture - Preliminary Blood No Growth after 96 hours 06/29/21 19:24 Blood Culture - Final Blood No Growth after 144 hours 06/29/21 15:40 Blood Culture - Final Blood No Growth after 144 hours Assessment and Plan (1) Febrile illness, acute Current Visit: Yes Status: Acute Code(s): R50.9 - FEVER, UNSPECIFIED SNOMED Code(s): 641458790 (2) Pneumonia Current Visit: Yes Status: Acute Code(s): J18.9 - PNEUMONIA, UNSPECIFIED ORGANISM SNOMED Code(s): 771887787 Plan: 1patient presented to hospital with a fever increasing shortness of breath and this patient was recently diagnosed with the right-sided pneumonia status post bronchoscopy and was culture showed Jacey likely colonizer, failing outpatient oral antibiotic therapy. 2sputum cultures as well as urine for Legionella antigen has been negative [address] of the chest did show progressive pulmonary consolidation, likely representing progressive pneumonia, sputum culture has been requested which are currently pending and also waiting for cryptococcal antigen 4-patient to continue with Unasyn, Diflucan 400 mg daily however if persistent fever we will add vancomycin pharmacy to dose while waiting for the cultures to be finalize Time with Patient: Less than 30
--- NOTE | 2021-07-07 22:33 | P.PN ---
Subjective Progress Note Date: 07/07/21 Principal diagnosis: Pneumonia Patient is a 56-year-old male who was recently admitted to the hospital and was diagnosed with pneumonia status post bronchoscopy and those culture were negative patient was subsequently discharged home on oral antibiotics and currently admitted to the hospital within 72 hours with a fever. Patient repeat CT did shows progression of his pneumonia and the patient is status post bronchoscopy biopsy and lavage completed 07/07/2021 On today's evaluation that is grade 07/07/2021, the patient is afebrile today, the patient denies having any chest pain, the patient did have a cough but not bringing up any sputum, the patient denies hemoptysis no nausea no vomiting no abdominal pain and no diarrhea with antibiotic therapy Objective - Vital Signs Vital signs: Vital Signs Temp 98.9 F 07/07/21 14:10 Pulse 98 07/07/21 14:10 Resp 18 07/07/21 14:10 BP 91/50 07/07/21 14:10 Pulse Ox 88 L 07/07/21 14:10 Intake & Output 07/06/21 07/07/21 07/07/21 18:59 06:59 18:59 Intake Total 240 150 Balance 240 150 Intake: IV 150 Oral 240 Other: # Voids 1 2 - Exam GENERAL DESCRIPTION: Middle-aged male lying in bed in no distress RESPIRATORY SYSTEM: Unlabored breathing , decreased breath sounds at bases HEART: S1 S2 regular rate and rhythm , ABDOMEN: Soft , no tenderness EXTREMITIES: No edema feet - Labs CBC & Chem 7: 07/06/21 06:31 07/07/21 03:52 Labs: Abnormal Lab Results - Last 24 Hours (Table) 07/07/21 Range/Units 03:52 Creatinine 0.60 L (0.66-1.25) mg/dL Microbiology - Last 24 Hours (Table) 07/06/21 11:53 Gram Stain - Preliminary Sputum Sputum Culture - Preliminary 07/02/21 05:19 Blood Culture - Preliminary Blood No Growth after 120 hours 07/06/21 11:53 Acid Fast Bacilli Culture - Preliminary Sputum Assessment and Plan (1) Febrile illness, acute Current Visit: Yes Status: Acute Code(s): R50.9 - FEVER, UNSPECIFIED SNOMED Code(s): 781628837 (2) Pneumonia Current Visit: Yes Status: Acute Code(s): J18.9 - PNEUMONIA, UNSPECIFIED ORGANISM SNOMED Code(s): 190754976 Plan: 1patient presented to hospital with a fever increasing shortness of breath and this patient was recently diagnosed with the right-sided pneumonia status post bronchoscopy and was culture showed Jacey likely colonizer, failing outpatient oral antibiotic therapy. 2sputum cultures as well as urine for Legionella antigen has been negative [address] of the chest did show progressive pulmonary consolidation, likely representing progressive pneumonia, patient is status post bronchoscopy biopsy and lavage and cultures will be followed 4-patient to continue with Unasyn vancomycin and Diflucan while waiting for the cultures to finalize Time with Patient: Less than 30
[2021-07-08] MEDS: VANCOMYCIN 1,000 MG in SODIUM CHLORIDE 0.9% 250 ML IVPB SCH ×2 (00:41→08:44)
[2021-07-08] MEDS: AMPICILLIN-SULBACTAM 3 GM in SODIUM CHLORIDE 0.9% 100 ML IVPB SCH ×4 (05:15→23:32)
[2021-07-08] MEDS: ACETAMINOPHEN TAB 325 MG TAB PO SCH ×4 (05:16→23:32)
[2021-07-08] MEDS ORDERED: VANCOMYCIN TROUGH DUE 1 EACH MISC MISCELLANE ONE (07:00)
[2021-07-08] MEDS: SYMBICORT 80-4.5 MCG INHALER INHALATION SCH ×2 (07:24→20:23)
[2021-07-08] MEDS: IPRATROPIUM-ALBUTEROL 3 ML NEB INHALATION PRN ×3 (07:24→20:23)
[2021-07-08] MEDS: IPRATROPIUM 0.5 MG/2.5 ML NEBU INHALATION SCH ×4 (07:24→20:23)
[2021-07-08] MEDS: HEPARIN SODIUM,PORCINE/PF 5,000 UNIT/0.5 ML SYRINGE SQ SCH ×3 (08:43→23:32)
[2021-07-08] MEDS: NICOTINE 21MG/24HR PATCH TRANSDERM SCH (08:49)
[2021-07-08] MEDS: FLUCONAZOLE 100 MG TAB PO SCH (08:51)
[2021-07-08] MEDS: polyethylene glycoL 3350 17 GM POWD.PACK PO SCH (08:51)
[2021-07-08] MEDS: FUROSEMIDE 40 MG TAB PO SCH (08:52)
[2021-07-08] MEDS: NON FORMULARY DRUG (Buprenorphine Hcl/Naloxone Hcl [Suboxone 8 Mg-2 Mg Sl Film] 1 EACH Fil SUBLINGUAL SCH (08:52)
[2021-07-08] MEDS: ASPIRIN 81 MG PO SCH (08:52)
[2021-07-08] MEDS: DOCUSATE 100 MG CAP PO SCH ×2 (08:52→21:11)
[2021-07-08 10:15] LABS: IgG Subclass 3 37.2 mg/dL (21.82-176.00); IgG Subclass 4 21.7 mg/dL (3.92-86.40)
[2021-07-08 10:33] LABS: Basophils % (A) 0 %; Eosinophils # (A) 0.6 k/uL (0-0.7); Eosinophils % (A) 6 %; Hypochromasia Marked; Lymphocytes % (A) 10 %; MCH 28.1 pg (25.0-35.0); MCHC 31.4 g/dL (31.0-37.0); MCV 89.4 fL (80.0-100.0); Mean Platelet Volume 7.6; Monocytes # (A) 0.7 k/uL (0-1.0); Monocytes % (A) 6 %; Neutrophils # (A) 7.8 k/uL (1.3-7.7); Neutrophils % (A) 75 %; Platelet Count 556 k/uL (150-450); RBC 2.91 m/uL (4.30-5.90); RDW 15.1 % (11.5-15.5); WBC 10.3 k/uL (3.8-10.6)
[2021-07-08 10:36] LABS: ALT 56 U/L (4-49); AST 81 U/L (17-59); African American GFR (CKD) >90 (>60 ml/min/1.73 sqM); Albumin/Globulin Ratio 0.6; Alkaline Phosphatase 155 U/L (38-126); Anion Gap 7 mmol/L; Blood Urea Nitrogen 18 mg/dL (9-20); Calcium 7.7 mg/dL (8.4-10.2); Carbon Dioxide 26 mmol/L (22-30); Chloride 102 mmol/L (98-107); Globulin 3.1 g/dL; Glucose 113 mg/dL (74-99); Non-African American GFR(CKD) >90 (>60 ml/min/1.73 sqM); Potassium 3.9 mmol/L (3.5-5.1); Sodium 135 mmol/L (137-145); Total Bilirubin 0.4 mg/dL (0.2-1.3); Total Protein 5.1 g/dL (6.3-8.2)
[2021-07-08 10:38] LABS: HGB 8.2 gm/dL (13.0-17.5)
--- NOTE | 2021-07-08 12:15 | P.PN ---
Subjective Progress Note Date: 07/08/21 56-year-old male patient with known history of COPD, chronic smoker, CAD, paroxysmal A. fib status post pacemaker insertion, chronic CHF with systolic dysfunction, ischemic cardiomyopathy with EF of 30-35% with AICD placement, anxiety who was recently hospitalized for acute exacerbation of COPD, complica francis with possible pneumonia. Patient's chest x-ray showed bilateral airspace disease, underlying emphysema. CT angiogram of the chest showed no evidence of pulmonary embolism, extensive bullous pulmonary emphysema, with extensive honeycombing infiltrate in the mid and upper lung hendricks. Patient was treated with a combination of Rocephin and Zithromax initially, however he continued to have intermittent febrile episodes and subsequently he was switched to Zosyn by infectious disease service. Patient ended up having bronchoalveolar lavage on 06/24/[address] Ulloa, and BAL cultures showed no growth other than Jacey albicans. A separate BAL cultures were taken from right upper lobe and left lower lobe, cytology was negative for diagnostic malignancy. BAL cultures and viral cultures were negative. Patient was clinically improving, after being switched over to Zosyn patient's fever pattern had improved, and subsequently he was discharged home on oral course of Augmentin, and we recommended at least 2 week treatment with Augmentin, completion of prednisone taper and patient was sent home on home oxygen at 4 L. Patient states he was discharged on a Tuesday, by Tuesday night he started having increased swelling in his lower extremities, he could hardly get his socks on. At the same time he started developing a fever. He states he picked up his antibiotics and was taking them, he denied any worsening shortness of breath, no cough, no phlegm production, no hemoptysis no chest pain. No swelling or tenderness in the bilateral calves. He came into the emergency department for reevaluation on 06/29/2021. His temperature on admission was 101.4F. Chest x-ray showed findings similar to the prior exam with bilateral airspace disease, increased interstitium and underlying emphysema. Admission labs showed white blood cell count of 14.3, hemoglobin 12.4, sodium is 133, the rest of electrolytes were unremarkable, B1 is 16 creatinine 0.55, proBNP was 1520, troponin was 0.017, AST was 46, ALT was 158, alk phos was 146, urinalysis showed no evidence of infection, patient tested negative for COVID 19. Patient was started on vancomycin for antibiotic coverage, and Zosyn. He was started on oral Lasix after a single dose of IV Lasix 40 mg. Currently ankle edema is improving, he is diuresing, he continues on the bronchodilators. On 07/01/2021 patient seen in follow-up on medical surgical floor, he states he is breathing comfortably, he is currently on 2 L of oxygen his pulse ox is 91- 93%. His ankle swelling is significantly down, this morning patient was able to produce a sputum specimen which was sent for culture, follow-up chest x-ray today showing confluent densities in the upper lobes, and worsening pneumonia. Patient currently remains on Zosyn and vancomycin. No fever or chills overnight. White blood cell count is 10.6, hemoglobin is 10.9, sodium is 131, the rest of the electrolytes and renal profile were unremarkable, LFTs are improved. No chest discomfort, no hemoptysis. Patient continues on nebulized bronchodilators, he is on oral dose of Lasix 40 mg daily. On 07/02/2021 patient seen in follow-up on medical surgical floor. He is still having intermittent fevers, T-max in last 24 hours 101.8F, patient was initially covered with a combination of Zosyn and vancomycin, ID service recommended discontinuing vancomycin and patient is currently on Zosyn and Levaquin has been added. Urine for Legionella antigen will be sent. Cultures reviewed, blood cultures have been negative, sputum Gram stain showing rare PMNs, few gram-positive cocci in clusters, few budding yeast. BAL cultures showed Jacey albicans. Today's labs reviewed, with blood cell count 12.3, hemoglobin is 9.3, sodium is 1:0, potassium is 4.3, B1 17 creatinine 0.57, CRP is 20.8, and pro-calcitonin level was 0.56. No worsening cough or hemoptysis, no chest pain, no altered mentation, hemodynamically has been stable, he has been tolerating ambulation in the room. Lower extremity swelling has significantly improved, patient remains on once daily dose of Lasix. 07/03/2021 patient seen in follow-up. He states there is no worsening dyspnea, occasional cough, no significant phlegm production, no chest discomfort, he remains on 2 L of oxygen the pulse ox of 90-93%, his fever pattern has improved in the last 24 hours, although the patient still has persistent low-grade fevers with a T-max of 100.6F. Room air pulse ox is 87%, and patient is very frust rated this morning as he was placed on the schedule for possible bronchoscopy with BAL without proper communication with him. Dr. Lundberg is at the bedside, and patient clinically has not worsened, he is currently on a combination of Levaquin and Zosyn, there has been no growth on BAL cultures from last admission, or blood or sputum culture, nasal swab for MRSA was negative. Follow blood cultures show no growth. Legionella urine antigen was negative. Yesterday CT of the chest was completed showing progressive chronic consolidation, likely representing progressive pneumonia, enlarged lymph nodes likely reactive. The patient is seen today 07/04/2021 in follow-up on the regular medical floor. He is currently sitting up in bed. Awake and alert in no acute distress. He is currently maintaining O2 saturations in the mid 90s on 2 L/m per nasal cannula. He did spike another fever this morning of 102.6. No worsening shortness of breath, cough or congestion. Blood cultures are revealing no growth. Sputum culture revealed no growth. White count 13.7. Hemoglobin 9.5. Platelets 587. Sodium 132. Potassium 4.4. BUN 16. Creatinine 0.7. Glucose 131. Antibiotics have been modified to Unasyn and Levaquin. He remains on oral diuretics. NicoDerm patch in place. The patient is seen today 07/07/2021 in follow-up on the regular medical floor. He is currently sitting up in bed. Awake and alert in no acute distress. He did have some issues with increased hypoxemia while laying flat last night. He is currently on 6 L high flow nasal cannula with O2 saturation in low 90s. He's been afebrile. Hemodynamically stable. Sputum culture reveals no growth. AFB results pending. Blood culture reveals no growth. Creatinine 0.60. He is continued on Symbicort, DuoNeb inhalations antibiotics in the form of vancomycin and Unasyn. Remains on oral diuretics. Heparin for DVT prophylaxis. NicoDerm patch is in place. The patient is seen today 07/08/2021 in follow-up on the regular medical floor. He remains awake and alert. Sitting up in bed. He is feeling a bit more short of breath and weak today compared to yesterday. He did undergo bronchoscopy with BAL, brushings and biopsies. Cultures and cytology pending. White count 10.3. Hemoglobin 8.2. Platelet count 556. Neutrophils 7.8. Sodium 135. Potassium 3.9. BUN 18. Creatinine 0.58. Glucose 113. Calcium 7.7. AST 81. ALT 56. Alk phos 155. Vancomycin trough 7.7. IgE level 1651. Initial sputum culture positive for Jacey only. He remains on Diflucan. He is also on antibiotics in the form of vancomycin and Unasyn. NicoDerm patch in place. Objective - Vital Signs Vital signs: Vital Signs Temp 102.6 F H 07/08/21 10:58 Pulse 94 07/08/21 11:15 Resp 18 07/08/21 07:28 BP 104/65 07/08/21 07:28 Pulse Ox 88 L 07/08/21 07:28 Intake & Output 07/07/21 07/08/21 07/08/21 18:59 06:59 18:59 Intake Total 150 537 Output Total 300 Balance 150 237 Intake: IV 150 Oral 537 Output: Urine 300 Other: # Voids 1 - Exam GENERAL EXAM: Alert, 56-year-old male patient, on 6 L of oxygen pulse ox of 88%, fairly comfortable in no apparent distress. HEAD: Normocephalic/atraumatic. EYES: Normal reaction of pupils, equal size. Conjunctiva pink, sclera white. NOSE: Clear with pink turbinates. THROAT: No erythema or exudates. NECK: No masses, no JVD, no thyroid enlargement, no adenopathy. CHEST: No chest wall deformity. Symmetrical expansion. LUNGS: Equal air entry with few scattered rhonchi. Diminished CVS: Regular rate and rhythm, normal S1 and S2, no gallops, no murmurs, no rubs ABDOMEN: Soft, nontender. No hepatosplenomegaly, normal bowel sounds, no guarding or rigidity. EXTREMITIES: No clubbing, no edema, no cyanosis, 2+ pulses and upper and lower extremities. MUSCULOSKELETAL: Muscle strength and tone normal. SPINE: No scoliosis or deformity SKIN: No rashes CENTRAL NERVOUS SYSTEM: No focal deficits, tone is normal in all 4 extremities. PSYCHIATRIC: Alert and oriented -3. Appropriate affect. Intact judgment and insight. - Labs CBC & Chem 7: 07/08/21 06:32 07/08/21 06:32 Labs: Abnormal Lab Results - Last 24 Hours (Table) 07/06/21 07/08/21 07/08/21 Range/Units 06:31 06:32 06:32 RBC 2.91 L (4.30-5.90) m/uL Hgb 8.2 L D (13.0-17.5) gm/dL Hct 26.0 L (39.0-53.0) % Plt Count 556 H (150-450) k/uL Neutrophils # 7.8 H (1.3-7.7) k/uL Sodium 135 L (137-145) mmol/L Creatinine 0.58 L (0.66-1.25) mg/dL Glucose 113 H (74-99) mg/dL Calcium 7.7 L (8.4-10.2) mg/dL AST 81 H (17-59) U/L ALT 56 H (4-49) U/L Alkaline Phosphatase 155 H (38-126) U/L Total Protein 5.1 L (6.3-8.2) g/dL Albumin 2.0 L (3.5-5.0) g/dL IgG2 128.00 L (241.80-700.30) mg/dL Microbiology - Last 24 Hours (Table) 07/06/21 11:53 Gram Stain - Final Sputum Sputum Culture - Final Jacey albicans 07/02/21 05:19 Blood Culture - Final Blood No Growth after 144 hours 07/06/21 11:53 Acid Fast Bacilli Smear - Final Sputum Acid Fast Bacilli Culture - Preliminary 07/07/21 11:31 Sputum Culture - Preliminary Sputum Assessment and Plan Assessment: 1 Persistent fever, despite antibiotics, rule out bacteremia, blood cultures reveal no growth, sputum culture revealing no growth, AFB pending. Current coverage with Unasyn and vancomycin. COVID-19 PCR was negative. Bronchoscopy with BAL, brushings and biopsies performed on 07/07/2021. Cultures and cytology pending. 2 Bilateral upper lobe pneumonia, stable on the chest x-ray, status post recent bronchoscopy with BAL on 06/24/2021, and BAL cultures were negative, viral cultures have been negative, COVID-19 PCR was negative 3 Recent hospitalization for acute exacerbation of COPD, and bilateral pneumonia, discharged home on 06/25/2021 to complete 2 week course of Augmentin 4 Bullous emphysema/COPD, on home oxygen since the recent hospitalization on 4 L 5 Increased swelling in bilateral lower extremities, possibly related to acute exacerbation of systolic CHF 6 Prior history of myocardial infarction 7 History of paroxysmal A. fib status post AICD and pacemaker insertion 8 CAD with prior stenting 9 History of CHF with systolic dysfunction 10 Ischemic cardiomyopathy with EF of 30-35% 11 History of laparoscopic bilateral inguinal hernia repair 12 History of prescription narcotic abuse currently on Suboxone 13 History of anxiety 14 Anemia, current hemoglobin 8.2 Plan: Patient was seen and evaluated Bronchoscopy with biopsies yesterday, cytology pending Continued on vancomycin and Unasyn for now Titrate the FiO2 as tolerated Increase his activity as tolerated We will continue to follow I have personally seen and examined the patient, performed the documentation and the assessment and plan as written. Number of minutes spent on the visit: 10.
--- NOTE | 2021-07-08 12:33 | P.PN ---
Subjective History of Present Illness H&P Date: 06/29/21 The patient is a 56-year-old male with a PMH of coronary artery disease status post multiple stents, hypertension, severe COPD, systolic CHF, who presents to the emergency room for lower extremity edema and fever. Of note, the patient was recently admitted to the hospital from 06/19 to 06/26 for pneumonia requiring IV antibiotics. The patient had undergone bronchoscopy which was also c onsistent with pneumonia. The patient's hypoxia and shortness of breath had gradually improved following which the patient was discharged with a course of oral Augmentin. Patient reports that since the day following his discharge, he started having intermittent fevers controlled with Tylenol. He reports compliance with his Augmentin at home. He also reported noticing lower extremity edema predominantly involving the ankles. He denied any additional complaints. Reports gradual improvement in his shortness of breath and denied chest discomfort. Continues to use chronic 2 L nasal cannula oxygen at home. Denied abdominal pain, nausea, vomiting, urinary complaints, diarrhea or headache, neck pain, visual disturbances. Laboratory evaluation was remarkable for leukocytosis of 14.3, sodium 133, glucose 174, ALT 158, alk phos 143, troponin 0.017, proBNP 1520, and unremarkable UA with coronavirus PCR negative. Tmax 101.4F. Chest x-ray revealed improvement in aeration with EKG showing sinus tachycardia at 109 bpm. Patient was seen and examined at the bedside. History of complaining of low- grade fever and shortness of breath. He is still on 6 L nasal cannula. Status post bronchoscopy July 07. Objective - Vital Signs Vital signs: Vital Signs Temp 102.6 F H 07/08/21 10:58 Pulse 94 07/08/21 11:15 Resp 18 07/08/21 07:28 BP 104/65 07/08/21 07:28 Pulse Ox 88 L 07/08/21 07:28 Intake & Output 07/07/21 07/08/21 07/08/21 18:59 06:59 18:59 Intake Total 150 537 Output Total 300 Balance 150 237 Intake: IV 150 Oral 537 Output: Urine 300 Other: # Voids 1 - Exam General: non toxic, no distress, appears older than his stated age. Derm: warm, dry Head: atraumatic, normocephalic, symmetric Eyes: EOMI, no lid lag, anicteric sclera Mouth: no lip lesion, mucus membranes moist Cardiovascular: S1S2 reg, no murmur, positive posterior tibial pulse bilateral, Lungs: Diminished air entry bilaterally with bilateral crackles. Abdominal: soft, nontender to palpation, no guarding, no appreciable organomegaly Ext: no gross muscle atrophy, no edema, no contractures Neuro: CN II-XI grossly intact, no focal neuro deficits Psych: Alert, oriented, appropriate affect - Labs CBC & Chem 7: 07/08/21 06:32 07/08/21 06:32 Labs: Abnormal Lab Results - Last 24 Hours (Table) 07/06/21 07/08/21 07/08/21 Range/Units 06:31 06:32 06:32 RBC 2.91 L (4.30-5.90) m/uL Hgb 8.2 L D (13.0-17.5) gm/dL Hct 26.0 L (39.0-53.0) % Plt Count 556 H (150-450) k/uL Neutrophils # 7.8 H (1.3-7.7) k/uL Sodium 135 L (137-145) mmol/L Creatinine 0.58 L (0.66-1.25) mg/dL Glucose 113 H (74-99) mg/dL Calcium 7.7 L (8.4-10.2) mg/dL AST 81 H (17-59) U/L ALT 56 H (4-49) U/L Alkaline Phosphatase 155 H (38-126) U/L Total Protein 5.1 L (6.3-8.2) g/dL Albumin 2.0 L (3.5-5.0) g/dL IgG2 128.00 L (241.80-700.30) mg/dL Microbiology - Last 24 Hours (Table) 07/06/21 11:53 Gram Stain - Final Sputum Sputum Culture - Final Jacey albicans 07/02/21 05:19 Blood Culture - Final Blood No Growth after 144 hours 07/06/21 11:53 Acid Fast Bacilli Smear - Final Sputum Acid Fast Bacilli Culture - Preliminary 07/07/21 11:31 Sputum Culture - Preliminary Sputum Assessment and Plan Assessment: Acute on chronic hypoxic respiratory failure Pneumonia, failed outpatient treatment with sepsis -Vancomycin, Unasyn and Diflucan per infectious disease - Status post bronchoscopy with bronchoalveolar lavage March 8 - Beta D glucan, < 31 (negative) - Negative HIV -QuantiFERON Gold TB test ordered July 08 - MRSA negative - Pulm and ID recs - Bronchodilators - pulm hygeine - Blood cultures negative to date. - Repeat Sputum Cx and AFB stain on 07/04 - CrAg, pending - Normal IgG1, IgG3 and IgG4 but IgG2 level is low - IgE level elevated Acute exacerbation of systolic CHF with EF 30-35 % ASCAD - Oral Lasix - ASA, lipitor, BB - entresto on hold due to recent hypotension on last hospital stay. 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 Bullous emphysema/COPD, on home oxygen since the recent hospitalization on 4 L Thrombocytosis - chronic at baseline - follow CBC Ongoing tobacco abuse - cessation - nicotine replacement if needed Underweight with BMI 18.2 - dietitian recs History of laparoscopic bilateral inguinal hernia repair History of prescription narcotic abuse currently on Suboxone History of anxiety DVT prophylaxis: heparin Anticipated discharge: pending clinical course Anticipated discharge place: home
[2021-07-08] MEDS: VANCOMYCIN 1,250 MG in SODIUM CHLORIDE 0.9% 250 ML IVPB SCH (17:06)
[2021-07-08] MEDS: carvediloL 3.125 MG TAB PO SCH (21:11)
[2021-07-08] MEDS: ATORVASTATIN 40 MG TAB PO SCH (21:11)
[2021-07-08 21:58] LABS: Appearance,BF Bloody
[2021-07-09] MEDS: VANCOMYCIN 1,250 MG in SODIUM CHLORIDE 0.9% 250 ML IVPB SCH ×4 (00:14→23:08)
[2021-07-09] MEDS: ACETAMINOPHEN TAB 325 MG TAB PO SCH ×4 (05:24→23:07)
[2021-07-09] MEDS: AMPICILLIN-SULBACTAM 3 GM in SODIUM CHLORIDE 0.9% 100 ML IVPB SCH ×5 (05:25→23:08)
[2021-07-09] MEDS: SYMBICORT 80-4.5 MCG INHALER INHALATION SCH ×2 (07:47→20:10)
[2021-07-09] MEDS: IPRATROPIUM 0.5 MG/2.5 ML NEBU INHALATION SCH ×4 (07:47→20:10)
[2021-07-09] MEDS: HEPARIN SODIUM,PORCINE/PF 5,000 UNIT/0.5 ML SYRINGE SQ SCH ×4 (09:02→23:08)
[2021-07-09] MEDS: NICOTINE 21MG/24HR PATCH TRANSDERM SCH (09:04)
[2021-07-09] MEDS: DOCUSATE 100 MG CAP PO SCH ×2 (09:05→19:51)
[2021-07-09] MEDS: FUROSEMIDE 40 MG TAB PO SCH (09:05)
[2021-07-09] MEDS: FLUCONAZOLE 100 MG TAB PO SCH (09:05)
[2021-07-09] MEDS: polyethylene glycoL 3350 17 GM POWD.PACK PO SCH (09:05)
[2021-07-09] MEDS: ASPIRIN 81 MG PO SCH (09:05)
[2021-07-09 10:59] LABS: African American GFR (CKD) 142.4 (60.0-200.0); BUN/Creat Ratio 25.89 Ratio (12.00-20.00); Blood Urea Nitrogen 12.3 mg/dL (9.0-27.0); Calcium 8.1 mg/dL (8.7-10.3); Carbon Dioxide 23.4 mmol/L (20.0-27.5); Non-African American GFR(CKD) 122.9 (60.0-200.0); Potassium 4.1 mmol/L (3.5-5.5)
[2021-07-09 11:26] LABS: Basophils # (A) 0.05 X 10*3/uL (0.00-0.10); Basophils % (A) 0.4 %; Eosinophils # (A) 0.95 X 10*3/uL (0.04-0.35); Eosinophils % (A) 7.6 %; HGB 8.1 g/dL (13.0-17.0); Immature Grans, Automated 0.9 %; Lymphocytes # (A) 1.41 X 10*3/uL (0.90-5.00); Lymphocytes % (A) 11.3 %; MCH 26.3 pg (27.0-32.0); MCHC 31.2 g/dL (32.0-37.0); MCV 84.4 fL (80.0-97.0); Mean Platelet Volume 9.9 fL (9.5-12.2); Monocytes # (A) 1.03 X 10*3/uL (0.20-1.00); Monocytes % (A) 8.3 %; NRBC Per 100 WBC 0 /100 WBCS (0.0-0.0); Neutrophils # (A) 8.93 X 10*3/uL (1.80-7.70); Neutrophils % (A) 71.5 %; Platelet Count 592 X 10*3/uL (140-440); RBC 3.08 X 10*6/uL (4.40-5.60); RDW 15.6 % (11.5-14.5); WBC 12.48 X 10*3/uL (4.50-10.00)
[2021-07-09] MEDS: NON FORMULARY DRUG (Buprenorphine Hcl/Naloxone Hcl [Suboxone 8 Mg-2 Mg Sl Film] 1 EACH Fil SUBLINGUAL SCH (11:44)
--- NOTE | 2021-07-09 11:54 | P.PN ---
Subjective Progress Note Date: 07/09/21 56-year-old male patient with known history of COPD, chronic smoker, CAD, paroxysmal A. fib status post pacemaker insertion, chronic CHF with systolic dysfunction, ischemic cardiomyopathy with EF of 30-35% with AICD placement, anxiety who was recently hospitalized for acute exacerbation of COPD, complica francis with possible pneumonia. Patient's chest x-ray showed bilateral airspace disease, underlying emphysema. CT angiogram of the chest showed no evidence of pulmonary embolism, extensive bullous pulmonary emphysema, with extensive honeycombing infiltrate in the mid and upper lung hendricks. Patient was treated with a combination of Rocephin and Zithromax initially, however he continued to have intermittent febrile episodes and subsequently he was switched to Zosyn by infectious disease service. Patient ended up having bronchoalveolar lavage on 06/24/[address] Ulloa, and BAL cultures showed no growth other than Jacey albicans. A separate BAL cultures were taken from right upper lobe and left lower lobe, cytology was negative for diagnostic malignancy. BAL cultures and viral cultures were negative. Patient was clinically improving, after being switched over to Zosyn patient's fever pattern had improved, and subsequently he was discharged home on oral course of Augmentin, and we recommended at least 2 week treatment with Augmentin, completion of prednisone taper and patient was sent home on home oxygen at 4 L. Patient states he was discharged on a Tuesday, by Tuesday night he started having increased swelling in his lower extremities, he could hardly get his socks on. At the same time he started developing a fever. He states he picked up his antibiotics and was taking them, he denied any worsening shortness of breath, no cough, no phlegm production, no hemoptysis no chest pain. No swelling or tenderness in the bilateral calves. He came into the emergency department for reevaluation on 06/29/2021. His temperature on admission was 101.4F. Chest x-ray showed findings similar to the prior exam with bilateral airspace disease, increased interstitium and underlying emphysema. Admission labs showed white blood cell count of 14.3, hemoglobin 12.4, sodium is 133, the rest of electrolytes were unremarkable, B1 is 16 creatinine 0.55, proBNP was 1520, troponin was 0.017, AST was 46, ALT was 158, alk phos was 146, urinalysis showed no evidence of infection, patient tested negative for COVID 19. Patient was started on vancomycin for antibiotic coverage, and Zosyn. He was started on oral Lasix after a single dose of IV Lasix 40 mg. Currently ankle edema is improving, he is diuresing, he continues on the bronchodilators. On 07/01/2021 patient seen in follow-up on medical surgical floor, he states he is breathing comfortably, he is currently on 2 L of oxygen his pulse ox is 91- 93%. His ankle swelling is significantly down, this morning patient was able to produce a sputum specimen which was sent for culture, follow-up chest x-ray today showing confluent densities in the upper lobes, and worsening pneumonia. Patient currently remains on Zosyn and vancomycin. No fever or chills overnight. White blood cell count is 10.6, hemoglobin is 10.9, sodium is 131, the rest of the electrolytes and renal profile were unremarkable, LFTs are improved. No chest discomfort, no hemoptysis. Patient continues on nebulized bronchodilators, he is on oral dose of Lasix 40 mg daily. On 07/02/2021 patient seen in follow-up on medical surgical floor. He is still having intermittent fevers, T-max in last 24 hours 101.8F, patient was initially covered with a combination of Zosyn and vancomycin, ID service recommended discontinuing vancomycin and patient is currently on Zosyn and Levaquin has been added. Urine for Legionella antigen will be sent. Cultures reviewed, blood cultures have been negative, sputum Gram stain showing rare PMNs, few gram-positive cocci in clusters, few budding yeast. BAL cultures showed Jacey albicans. Today's labs reviewed, with blood cell count 12.3, hemoglobin is 9.3, sodium is 1:0, potassium is 4.3, B1 17 creatinine 0.57, CRP is 20.8, and pro-calcitonin level was 0.56. No worsening cough or hemoptysis, no chest pain, no altered mentation, hemodynamically has been stable, he has been tolerating ambulation in the room. Lower extremity swelling has significantly improved, patient remains on once daily dose of Lasix. 07/03/2021 patient seen in follow-up. He states there is no worsening dyspnea, occasional cough, no significant phlegm production, no chest discomfort, he remains on 2 L of oxygen the pulse ox of 90-93%, his fever pattern has improved in the last 24 hours, although the patient still has persistent low-grade fevers with a T-max of 100.6F. Room air pulse ox is 87%, and patient is very frust rated this morning as he was placed on the schedule for possible bronchoscopy with BAL without proper communication with him. Dr. Lundberg is at the bedside, and patient clinically has not worsened, he is currently on a combination of Levaquin and Zosyn, there has been no growth on BAL cultures from last admission, or blood or sputum culture, nasal swab for MRSA was negative. Follow blood cultures show no growth. Legionella urine antigen was negative. Yesterday CT of the chest was completed showing progressive chronic consolidation, likely representing progressive pneumonia, enlarged lymph nodes likely reactive. The patient is seen today 07/04/2021 in follow-up on the regular medical floor. He is currently sitting up in bed. Awake and alert in no acute distress. He is currently maintaining O2 saturations in the mid 90s on 2 L/m per nasal cannula. He did spike another fever this morning of 102.6. No worsening shortness of breath, cough or congestion. Blood cultures are revealing no growth. Sputum culture revealed no growth. White count 13.7. Hemoglobin 9.5. Platelets 587. Sodium 132. Potassium 4.4. BUN 16. Creatinine 0.7. Glucose 131. Antibiotics have been modified to Unasyn and Levaquin. He remains on oral diuretics. NicoDerm patch in place. The patient is seen today 07/07/2021 in follow-up on the regular medical floor. He is currently sitting up in bed. Awake and alert in no acute distress. He did have some issues with increased hypoxemia while laying flat last night. He is currently on 6 L high flow nasal cannula with O2 saturation in low 90s. He's been afebrile. Hemodynamically stable. Sputum culture reveals no growth. AFB results pending. Blood culture reveals no growth. Creatinine 0.60. He is continued on Symbicort, DuoNeb inhalations antibiotics in the form of vancomycin and Unasyn. Remains on oral diuretics. Heparin for DVT prophylaxis. NicoDerm patch is in place. The patient is seen today 07/08/2021 in follow-up on the regular medical floor. He remains awake and alert. Sitting up in bed. He is feeling a bit more short of breath and weak today compared to yesterday. He did undergo bronchoscopy with BAL, brushings and biopsies. Cultures and cytology pending. White count 10.3. Hemoglobin 8.2. Platelet count 556. Neutrophils 7.8. Sodium 135. Potassium 3.9. BUN 18. Creatinine 0.58. Glucose 113. Calcium 7.7. AST 81. ALT 56. Alk phos 155. Vancomycin trough 7.7. IgE level 1651. Initial sputum culture positive for Jacey only. He remains on Diflucan. He is also on antibiotics in the form of vancomycin and Unasyn. NicoDerm patch in place. The patient is seen today 07/09/2021 in follow-up on the regular medical floor. He is sitting up in bed. Awake and alert. Feeling a bit better today compared to yesterday. Still with a loose cough. Still requiring 6 L high flow nasal cannula to maintain O2 saturation the high 80s low 90s. He is continued on vancomycin, Unasyn, Diflucan. Continued on bronchodilators. Cultures and pathology are still pending. White count 12.4. Hemoglobin 8.1. Platelets 592. Sodium 137. Potassium 4.1. BUN 12. Creatinine 0.5. Objective - Vital Signs Vital signs: Vital Signs Temp 98.1 F 07/09/21 07:45 Pulse 102 H 07/09/21 11:18 Resp 18 07/09/21 07:45 BP 116/77 07/09/21 07:45 Pulse Ox 84 L 07/09/21 07:54 Intake & Output 07/08/21 07/09/21 07/09/21 18:59 06:59 18:59 Intake Total 1491 838 Output Total 600 250 Balance 891 -250 838 Intake: Oral 1491 838 Output: Urine 600 250 Other: # Voids 1 - Exam GENERAL EXAM: Alert, 56-year-old male patient, on 6 L of oxygen pulse ox of 84%, fairly comfortable in no apparent distress. HEAD: Normocephalic/atraumatic. EYES: Normal reaction of pupils, equal size. Conjunctiva pink, sclera white. NOSE: Clear with pink turbinates. THROAT: No erythema or exudates. NECK: No masses, no JVD, no thyroid enlargement, no adenopathy. CHEST: No chest wall deformity. Symmetrical expansion. LUNGS: Equal air entry with few scattered rhonchi. Diminished CVS: Regular rate and rhythm, normal S1 and S2, no gallops, no murmurs, no rubs ABDOMEN: Soft, nontender. No hepatosplenomegaly, normal bowel sounds, no guarding or rigidity. EXTREMITIES: No clubbing, no edema, no cyanosis, 2+ pulses and upper and lower extremities. MUSCULOSKELETAL: Muscle strength and tone normal. SPINE: No scoliosis or deformity SKIN: No rashes CENTRAL NERVOUS SYSTEM: No focal deficits, tone is normal in all 4 extremities. PSYCHIATRIC: Alert and oriented -3. Appropriate affect. Intact judgment and insight. - Labs CBC & Chem 7: 07/09/21 06:58 07/09/21 06:58 Labs: Abnormal Lab Results - Last 24 Hours (Table) 07/09/21 07/09/21 Range/Units 06:58 06:58 WBC 12.48 H (4.50-10.00) X 10*3/uL RBC 3.08 L (4.40-5.60) X 10*6/uL Hgb 8.1 L (13.0-17.0) g/dL Hct 26.0 L (39.6-50.0) % MCH 26.3 L (27.0-32.0) pg MCHC 31.2 L (32.0-37.0) g/dL RDW 15.6 H (11.5-14.5) % Plt Count 592 H (140-440) X 10*3/uL Immature Gran # 0.11 H (0.00-0.04) X 10*3/uL Neutrophils # 8.93 H (1.80-7.70) X 10*3/uL Monocytes # 1.03 H (0.20-1.00) X 10*3/uL Eosinophils # 0.95 H (0.04-0.35) X 10*3/uL Creatinine 0.5 L (0.6-1.5) mg/dL BUN/Creatinine Ratio 25.89 H (12.00-20.00) Ratio Calcium 8.1 L (8.7-10.3) mg/dL Microbiology - Last 24 Hours (Table) 07/07/21 11:31 Gram Stain - Final Sputum Sputum Culture - Final Jacey albicans 07/07/21 12:43 Fungal Culture - Preliminary Bronchial Washings - Right 07/07/21 12:43 Acid Fast Bacilli Culture - Preliminary Bronchial Washings - Right 07/07/21 12:43 Bronchial Washings Culture - Preliminary Bronchial Washings - Right 07/06/21 11:53 Gram Stain - Final Sputum Sputum Culture - Final Jacey albicans 07/02/21 05:19 Blood Culture - Final Blood No Growth after 144 hours Assessment and Plan Assessment: 1 Persistent fever, despite antibiotics, rule out bacteremia, blood cultures reveal no growth, sputum culture revealing no growth, AFB pending. Current coverage with Unasyn and vancomycin. COVID-19 PCR was negative. Bronchoscopy with BAL, brushings and biopsies performed on 07/07/2021. Cultures and cytology pending. 2 Bilateral upper lobe pneumonia, stable on the chest x-ray, status post recent bronchoscopy with BAL on 06/24/2021, and BAL cultures were negative, viral cultures have been negative, COVID-19 PCR was negative 3 Recent hospitalization for acute exacerbation of COPD, and bilateral pneumonia, discharged home on 06/25/2021 to complete 2 week course of Augmentin 4 Bullous emphysema/COPD, on home oxygen since the recent hospitalization on 4 L 5 Increased swelling in bilateral lower extremities, possibly related to acute exacerbation of systolic CHF 6 Prior history of myocardial infarction 7 History of paroxysmal A. fib status post AICD and pacemaker insertion 8 CAD with prior stenting 9 History of CHF with systolic dysfunction 10 Ischemic cardiomyopathy with EF of 30-35% 11 History of laparoscopic bilateral inguinal hernia repair 12 History of prescription narcotic abuse currently on Suboxone 13 History of anxiety 14 Anemia, current hemoglobin 8.2 Plan: Patient was seen and evaluated Pulmonary cultures and cytology pending Continued on vancomycin and Unasyn Titrate the FiO2 as tolerated Increase his activity as tolerated We will continue to follow I have personally seen and examined the patient, performed the documentation and the assessment and plan as written. Number of minutes spent on the visit: 10.
--- NOTE | 2021-07-09 16:05 | P.PN ---
Subjective Progress Note Date: 07/09/21 History of Present Illness H&P Date: 06/29/21 The patient is a 56-year-old male with a PMH of coronary artery disease status post multiple stents, hypertension, severe COPD, systolic CHF, who presents to the emergency room for lower extremity edema and fever. Of note, the patient was recently admitted to the hospital from 06/19 to 06/26 for pneumonia requiring IV antibiotics. The patient had undergone bronchoscopy which was also consistent with pneumonia. The patient's hypoxia and shortness of breath had gradually improved following which the patient was discharged with a course of oral Augmentin. Patient reports that since the day following his discharge, he started having intermittent fevers controlled with Tylenol. He reports compliance with his Augmentin at home. He also reported noticing lower extremity edema predominantly involving the ankles. He denied any additional complaints. Reports gradual improvement in his shortness of breath and denied chest discomfort. Continues to use chronic 2 L nasal cannula oxygen at home. Denied abdominal pain, nausea, vomiting, urinary complaints, diarrhea or headache, neck pain, visual disturbances. Laboratory evaluation was remarkable for leukocytosis of 14.3, sodium 133, glucose 174, ALT 158, alk phos 143, troponin 0.017, proBNP 1520, and unremarkable UA with coronavirus PCR negative. Tmax 101.4F. Chest x-ray revealed improvement in aeration with EKG showing sinus tachycardia at 109 bpm. Patient was seen and examined at the bedside. History of complaining of shortness of breath. He is currently on nonrebreather Objective - Vital Signs Vital signs: Vital Signs Temp 99.8 F H 07/09/21 15:44 Pulse 106 H 07/09/21 15:44 Resp 20 07/09/21 15:44 BP 116/81 07/09/21 15:44 Pulse Ox 91 L 07/09/21 15:44 Intake & Output 07/08/21 07/09/21 07/09/21 18:59 06:59 18:59 Intake Total 1491 838 Output Total 600 250 Balance 891 -250 838 Intake: Oral 1491 838 Output: Urine 600 250 Other: # Voids 1 - Exam General: non toxic, no distress, appears older than his stated age. Derm: warm, dry Head: atraumatic, normocephalic, symmetric Eyes: EOMI, no lid lag, anicteric sclera Mouth: no lip lesion, mucus membranes moist Cardiovascular: S1S2 reg, no murmur, positive posterior tibial pulse bilateral, Lungs: Diminished air entry bilaterally with bilateral crackles. Abdominal: soft, nontender to palpation, no guarding, no appreciable or ganomegaly Ext: no gross muscle atrophy, no edema, no contractures Neuro: CN II-XI grossly intact, no focal neuro deficits Psych: Alert, oriented, appropriate affect - Labs CBC & Chem 7: 07/09/21 06:58 07/09/21 06:58 Labs: Abnormal Lab Results - Last 24 Hours (Table) 07/09/21 07/09/21 Range/Units 06:58 06:58 WBC 12.48 H (4.50-10.00) X 10*3/uL RBC 3.08 L (4.40-5.60) X 10*6/uL Hgb 8.1 L (13.0-17.0) g/dL Hct 26.0 L (39.6-50.0) % MCH 26.3 L (27.0-32.0) pg MCHC 31.2 L (32.0-37.0) g/dL RDW 15.6 H (11.5-14.5) % Plt Count 592 H (140-440) X 10*3/uL Immature Gran # 0.11 H (0.00-0.04) X 10*3/uL Neutrophils # 8.93 H (1.80-7.70) X 10*3/uL Monocytes # 1.03 H (0.20-1.00) X 10*3/uL Eosinophils # 0.95 H (0.04-0.35) X 10*3/uL Creatinine 0.5 L (0.6-1.5) mg/dL BUN/Creatinine Ratio 25.89 H (12.00-20.00) Ratio Calcium 8.1 L (8.7-10.3) mg/dL Microbiology - Last 24 Hours (Table) 07/07/21 11:31 Gram Stain - Final Sputum Sputum Culture - Final Jacey albicans 07/07/21 12:43 Fungal Culture - Preliminary Bronchial Washings - Right 07/07/21 12:43 Acid Fast Bacilli Culture - Preliminary Bronchial Washings - Right 07/07/21 12:43 Bronchial Washings Culture - Preliminary Bronchial Washings - Right Assessment and Plan Assessment: Acute on chronic hypoxic respiratory failure secondary to pneumonia and COPD exacerbation Pneumonia, failed outpatient treatment with sepsis -Vancomycin, Unasyn and Diflucan per infectious disease - Status post bronchoscopy with bronchoalveolar lavage July 07 - Beta D glucan, < 31 (negative) - Negative HIV -QuantiFERON Gold TB test ordered July 08 - MRSA negative - Pulm and ID recs - Bronchodilators - pulm hygeine - Blood cultures negative to date. - Repeat Sputum Cx and AFB stain on 07/04 -Sputum grew Jacey Albicans - Cryptococcal antigen, pending - Normal IgG1, IgG3 and IgG4 but IgG2 level is low - IgE level elevated Acute COPD exacerbation -Discussed with biofuels product development manager Dr. [place]. We'll start the patient IV Solu-Medrol -Bronchodilator treatment -Wean off oxygen as tolerated Acute exacerbation of systolic CHF with EF 30-35 % ASCAD -Oral Lasix -ASA, lipitor, BB -Entresto on hold due to recent hypotension on last hospital stay. 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 Bullous emphysema/COPD, on home oxygen since the recent hospitalization on 4 L Thrombocytosis - chronic at baseline - follow CBC Ongoing tobacco abuse -Smoking cessation was advised -nicotine replacement if needed Underweight with BMI 18.2 - dietitian recs History of laparoscopic bilateral inguinal hernia repair History of prescription narcotic abuse currently on Suboxone History of anxiety DVT prophylaxis: heparin Anticipated discharge: pending clinical course Anticipated discharge place: home
[2021-07-09] MEDS: methylPREDNISolone SOD SUCCI 125 MG/2 ML VIAL IV SCH ×2 (17:09→23:16)
[2021-07-09] MEDS: carvediloL 3.125 MG TAB PO SCH (19:50)
[2021-07-09] MEDS: ATORVASTATIN 40 MG TAB PO SCH (19:51)
--- NOTE | 2021-07-09 23:29 | P.PN ---
Subjective Progress Note Date: 07/08/21 Principal diagnosis: Pneumonia Patient is a 56-year-old male who was recently admitted to the hospital and was diagnosed with pneumonia status post bronchoscopy and those culture were negative patient was subsequently discharged home on oral antibiotics and currently admitted to the hospital within 72 hours with a fever. Patient repeat CT did shows progression of his pneumonia and the patient is status post bronchoscopy biopsy and lavage completed 07/07/2021 On today's evaluation that is grade 07/08/2021, the patient did spike a fever of 102F today, the patient denies having any chest pain, the patient did have a cough did have some blood tinged sputum, the patient denies hemoptysis no nausea no vomiting no abdominal pain and no diarrhea with antibiotic therapy Objective - Vital Signs Vital signs: Vital Signs Temp 102.6 F H 07/08/21 10:58 Pulse 94 07/08/21 11:15 Resp 18 07/08/21 07:28 BP 104/65 07/08/21 07:28 Pulse Ox 88 L 07/08/21 07:28 Intake & Output 07/07/21 07/08/21 07/08/21 18:59 06:59 18:59 Intake Total 150 537 Output Total 300 Balance 150 237 Intake: IV 150 Oral 537 Output: Urine 300 Other: # Voids 1 - Exam GENERAL DESCRIPTION: Middle-aged male lying in bed in no distress RESPIRATORY SYSTEM: Unlabored breathing , decreased breath sounds at bases HEART: S1 S2 regular rate and rhythm , ABDOMEN: Soft , no tenderness EXTREMITIES: No edema feet - Labs CBC & Chem 7: 07/09/21 06:58 07/09/21 06:58 Labs: Abnormal Lab Results - Last 24 Hours (Table) 07/06/21 07/08/21 07/08/21 Range/Units 06:31 06:32 06:32 RBC 2.91 L (4.30-5.90) m/uL Hgb 8.2 L D (13.0-17.5) gm/dL Hct 26.0 L (39.0-53.0) % Plt Count 556 H (150-450) k/uL Neutrophils # 7.8 H (1.3-7.7) k/uL Sodium 135 L (137-145) mmol/L Creatinine 0.58 L (0.66-1.25) mg/dL Glucose 113 H (74-99) mg/dL Calcium 7.7 L (8.4-10.2) mg/dL AST 81 H (17-59) U/L ALT 56 H (4-49) U/L Alkaline Phosphatase 155 H (38-126) U/L Total Protein 5.1 L (6.3-8.2) g/dL Albumin 2.0 L (3.5-5.0) g/dL IgG2 128.00 L (241.80-700.30) mg/dL Microbiology - Last 24 Hours (Table) 07/06/21 11:53 Gram Stain - Final Sputum Sputum Culture - Final Jacey albicans 07/02/21 05:19 Blood Culture - Final Blood No Growth after 144 hours 07/06/21 11:53 Acid Fast Bacilli Smear - Final Sputum Acid Fast Bacilli Culture - Preliminary 07/07/21 11:31 Sputum Culture - Preliminary Sputum Assessment and Plan (1) Febrile illness, acute Current Visit: Yes Status: Acute Code(s): R50.9 - FEVER, UNSPECIFIED SNOMED Code(s): 947446291 (2) Pneumonia Current Visit: Yes Status: Acute Code(s): J18.9 - PNEUMONIA, UNSPECIFIED ORGANISM SNOMED Code(s): 313328354 Plan: 1patient presented to hospital with a fever increasing shortness of breath and this patient was recently diagnosed with the right-sided pneumonia status post bronchoscopy and was culture showed Jacey likely colonizer, failing outpatient oral antibiotic therapy. 2sputum cultures as well as urine for Legionella antigen has been negative [address] of the chest did show progressive pulmonary consolidation, likely representing progressive pneumonia, patient is status post bronchoscopy biopsy and lavage and cultures are currently pending 4-patient to continue with Unasyn vancomycin and Diflucan and adjusting antibiotic further on the basis of cultures Time with Patient: Less than 30
--- NOTE | 2021-07-09 23:30 | P.PN ---
Subjective Progress Note Date: 07/09/21 Principal diagnosis: Pneumonia Patient is a 56-year-old male who was recently admitted to the hospital and was diagnosed with pneumonia status post bronchoscopy and those culture were negative patient was subsequently discharged home on oral antibiotics and currently admitted to the hospital within 72 hours with a fever. Patient repeat CT did shows progression of his pneumonia and the patient is status post bronchoscopy biopsy and lavage completed 07/07/2021 On today's evaluation that is grade 07/09/2021, the patient is afebrile today, the patient denies having any chest pain, the patient did have a cough but not bringing up any sputum, patient mentioned breathing slightly comfortably however is requiring more supplemental nasal cannula oxygen patient denies having any nausea no vomiting no abdominal pain or diarrhea Objective - Vital Signs Vital signs: Vital Signs Temp 99.8 F H 07/09/21 15:44 Pulse 93 07/09/21 20:23 Resp 20 07/09/21 20:00 BP 116/81 07/09/21 15:44 Pulse Ox 91 L 07/09/21 15:44 Intake & Output 07/09/21 07/09/21 07/10/21 06:59 18:59 06:59 Intake Total 1652 Output Total 250 200 Balance -250 1452 Intake: Oral 1652 Output: Urine 250 200 Other: Voiding Method Toilet # Voids 1 1 - Exam GENERAL DESCRIPTION: Middle-aged male lying in bed in no distress RESPIRATORY SYSTEM: Unlabored breathing , decreased breath sounds at bases HEART: S1 S2 regular rate and rhythm , ABDOMEN: Soft , no tenderness EXTREMITIES: No edema feet - Labs CBC & Chem 7: 07/09/21 06:58 07/09/21 06:58 Labs: Abnormal Lab Results - Last 24 Hours (Table) 07/09/21 07/09/21 Range/Units 06:58 06:58 WBC 12.48 H (4.50-10.00) X 10*3/uL RBC 3.08 L (4.40-5.60) X 10*6/uL Hgb 8.1 L (13.0-17.0) g/dL Hct 26.0 L (39.6-50.0) % MCH 26.3 L (27.0-32.0) pg MCHC 31.2 L (32.0-37.0) g/dL RDW 15.6 H (11.5-14.5) % Plt Count 592 H (140-440) X 10*3/uL Immature Gran # 0.11 H (0.00-0.04) X 10*3/uL Neutrophils # 8.93 H (1.80-7.70) X 10*3/uL Monocytes # 1.03 H (0.20-1.00) X 10*3/uL Eosinophils # 0.95 H (0.04-0.35) X 10*3/uL Creatinine 0.5 L (0.6-1.5) mg/dL BUN/Creatinine Ratio 25.89 H (12.00-20.00) Ratio Calcium 8.1 L (8.7-10.3) mg/dL Microbiology - Last 24 Hours (Table) 07/07/21 11:31 Gram Stain - Final Sputum Sputum Culture - Final Jacey albicans 07/07/21 12:43 Fungal Culture - Preliminary Bronchial Washings - Right 07/07/21 12:43 Acid Fast Bacilli Culture - Preliminary Bronchial Washings - Right 07/07/21 12:43 Bronchial Washings Culture - Preliminary Bronchial Washings - Right Assessment and Plan (1) Febrile illness, acute Current Visit: Yes Status: Acute Code(s): R50.9 - FEVER, UNSPECIFIED SNOMED Code(s): 292675127 (2) Pneumonia Current Visit: Yes Status: Acute Code(s): J18.9 - PNEUMONIA, UNSPECIFIED ORGANISM SNOMED Code(s): 119097289 Plan: 1patient presented to hospital with a fever increasing shortness of breath and this patient was recently diagnosed with the right-sided pneumonia status post bronchoscopy and was culture showed Jacey likely colonizer, failing outpatient oral antibiotic therapy. 2sputum cultures as well as urine for Legionella antigen has been negative [address] of the chest did show progressive pulmonary consolidation, likely representing progressive pneumonia, patient is status post bronchoscopy biopsy and lavage and cultures are currently pending 4-patient is currently covered with Unasyn vancomycin and Diflucan which will be continued while waiting for the culture to be finalize Time with Patient: Less than 30
[2021-07-10] MEDS: PIPERACILLIN-TAZOBACTAM 3.375 GM in SODIUM CHLORIDE 0.9% 100 ML IVPB SCH ×4 (01:50→23:19)
[2021-07-10] MEDS: ACETAMINOPHEN TAB 325 MG TAB PO SCH ×4 (05:40→20:22)
[2021-07-10] MEDS ORDERED: VANCOMYCIN TROUGH DUE 1 EACH MISC MISCELLANE ONE (07:00)
[2021-07-10 07:55] LABS: Basophils % (A) 0 %; Eosinophils % (A) 0 %; HCT 28.2 % (39.0-53.0); HGB 9.1 gm/dL (13.0-17.5); Hypochromasia Moderate; Lymphocytes % (A) 11 %; MCH 27.8 pg (25.0-35.0); MCHC 32.2 g/dL (31.0-37.0); MCV 86.2 fL (80.0-100.0); Mean Platelet Volume 7.5; Monocytes # (A) 0.3 k/uL (0-1.0); Monocytes % (A) 3 %; Neutrophils # (A) 7.7 k/uL (1.3-7.7); Neutrophils % (A) 84 %; Platelet Count 672 k/uL (150-450); Poikilocytosis Slight; RBC 3.27 m/uL (4.30-5.90); WBC 9.2 k/uL (3.8-10.6)
[2021-07-10 08:14] LABS: ALT 92 U/L (4-49); AST 107 U/L (17-59); African American GFR (CKD) >90 (>60 ml/min/1.73 sqM); Albumin 2.3 g/dL (3.5-5.0); Alkaline Phosphatase 203 U/L (38-126); Anion Gap 8 mmol/L; Blood Urea Nitrogen 19 mg/dL (9-20); Calcium 8.3 mg/dL (8.4-10.2); Carbon Dioxide 25 mmol/L (22-30); Chloride 104 mmol/L (98-107); Glucose 136 mg/dL (74-99); Non-African American GFR(CKD) >90 (>60 ml/min/1.73 sqM); Potassium 4.3 mmol/L (3.5-5.1); Sodium 137 mmol/L (137-145); Total Bilirubin 0.4 mg/dL (0.2-1.3); Total Protein 5.9 g/dL (6.3-8.2)
[2021-07-10 08:50] LABS: C Reactive Protein 32.5 mg/dL (<1.0)
[2021-07-10] MEDS: polyethylene glycoL 3350 17 GM POWD.PACK PO SCH (09:10)
[2021-07-10] MEDS: DOCUSATE 100 MG CAP PO SCH ×2 (09:11→20:22)
[2021-07-10] MEDS: FLUCONAZOLE 100 MG TAB PO SCH (09:20)
[2021-07-10] MEDS: HEPARIN SODIUM,PORCINE/PF 5,000 UNIT/0.5 ML SYRINGE SQ SCH ×3 (09:20→23:18)
[2021-07-10] MEDS: FUROSEMIDE 40 MG TAB PO SCH (09:20)
[2021-07-10] MEDS: NICOTINE 21MG/24HR PATCH TRANSDERM SCH (09:20)
[2021-07-10] MEDS: DOXYCYCLINE 100 MG CAP PO SCH ×2 (09:20→20:22)
[2021-07-10] MEDS: methylPREDNISolone SOD SUCCI 125 MG/2 ML VIAL IV SCH ×3 (09:20→23:19)
[2021-07-10] MEDS: ASPIRIN 81 MG PO SCH (09:20)
[2021-07-10] MEDS: NON FORMULARY DRUG (Buprenorphine Hcl/Naloxone Hcl [Suboxone 8 Mg-2 Mg Sl Film] 1 EACH Fil SUBLINGUAL SCH (09:21)
[2021-07-10] MEDS: IPRATROPIUM 0.5 MG/2.5 ML NEBU INHALATION SCH ×4 (09:27→21:33)
[2021-07-10] MEDS: SYMBICORT 80-4.5 MCG INHALER INHALATION SCH ×2 (09:28→21:33)
--- NOTE | 2021-07-10 11:40 | P.PN ---
Subjective Progress Note Date: 07/10/21 Principal diagnosis: swelling in BLE 56-year-old male patient with known history of COPD, chronic smoker, CAD, paroxysmal A. fib status post pacemaker insertion, chronic CHF with systolic dysfunction, ischemic cardiomyopathy with EF of 30-35% with AICD placement, anxiety who was recently hospitalized for acute exacerbation of COPD, complicated with possible pneumonia. Patient's chest x-ray showed bilateral airspace disease, underlying emphysema. CT angiogram of the chest showed no evidence of pulmonary embolism, extensive bullous pulmonary emphysema, with extensive honeycombing infiltrate in the mid and upper lung hendricks. Patient was treated with a combination of Rocephin and Zithromax initially, however he continued to have intermittent febrile episodes and subsequently he was switched to Zosyn by infectious disease service. Patient ended up having bronchoalveolar lavage on 06/24/[address] Ulloa, and BAL cultures showed no growth other than Jacey albicans. A separate BAL cultures were taken from right upper lobe and left lower lobe, cytology was negative for diagnostic malignancy. BAL cultures and viral cultures were negative. Patient was clinically improving, after being switched over to Zosyn patient's fever pattern had improved, and subsequently he was discharged home on oral course of Augmentin, and we recommended at least 2 week treatment with Augmentin, completion of prednisone taper and patient was sent home on home oxygen at 4 L. Patient states he was discharged on a Tuesday, by Tuesday night he started having increased swelling in his lower extremities, he could hardly get his socks on. At the same time he started developing a fever. He states he picked up his antibiotics and was taking them, he denied any worsening shortness of breath, no cough, no phlegm production, no hemoptysis no chest pain. No swelling or tenderness in the bilateral calves. He came into the emergency department for reevaluation on 06/29/2021. His temperature on admission was 101.4F. Chest x-ray showed findings similar to the prior exam with bilateral airspace disease, increased interstitium and underlying emphysema. Admission labs showed white blood cell count of 14.3, hemoglobin 12.4, sodium is 133, the rest of electrolytes were unremarkable, B1 is 16 creatinine 0.55, proBNP was 1520, troponin was 0.017, AST was 46, ALT was 158, alk phos was 146, urinalysis showed no evidence of infection, patient tested negative for COVID 19. Patient was started on vancomycin for antibiotic coverage, and Zosyn. He was started on oral Lasix a fter a single dose of IV Lasix 40 mg. Currently ankle edema is improving, he is diuresing, he continues on the bronchodilators. On 07/01/2021 patient seen in follow-up on medical surgical floor, he states he is breathing comfortably, he is currently on 2 L of oxygen his pulse ox is 91- 93%. His ankle swelling is significantly down, this morning patient was able to produce a sputum specimen which was sent for culture, follow-up chest x-ray today showing confluent densities in the upper lobes, and worsening pneumonia. Patient currently remains on Zosyn and vancomycin. No fever or chills over night. White blood cell count is 10.6, hemoglobin is 10.9, sodium is 131, the rest of the electrolytes and renal profile were unremarkable, LFTs are improved. No chest discomfort, no hemoptysis. Patient continues on nebulized bronchodilators, he is on oral dose of Lasix 40 mg daily. On 07/02/2021 patient seen in follow-up on medical surgical floor. He is still having intermittent fevers, T-max in last 24 hours 101.8F, patient was initially covered with a combination of Zosyn and vancomycin, ID service recommended discontinuing vancomycin and patient is currently on Zosyn and Levaquin has been added. Urine for Legionella antigen will be sent. Cultures reviewed, blood cultures have been negative, sputum Gram stain showing rare PMNs, few gram-positive cocci in clusters, few budding yeast. BAL cultures showed Jacey albicans. Today's labs reviewed, with blood cell count 12.3, hemoglobin is 9.3, sodium is 1:0, potassium is 4.3, B1 17 creatinine 0.57, CRP is 20.8, and pro-calcitonin level was 0.56. No worsening cough or hemoptysis, no chest pain, no altered mentation, hemodynamically has been stable, he has been tolerating ambulation in the room. Lower extremity swelling has significantly improved, patient remains on once daily dose of Lasix. 07/03/2021 patient seen in follow-up. He states there is no worsening dyspnea, occasional cough, no significant phlegm production, no chest discomfort, he remains on 2 L of oxygen the pulse ox of 90-93%, his fever pattern has improved in the last 24 hours, although the patient still has persistent low-grade fevers with a T-max of 100.6F. Room air pulse ox is 87%, and patient is very frustrated this morning as he was placed on the schedule for possible bronchoscopy with BAL without proper communication with him. Dr. Lundberg is at the bedside, and patient clinically has not worsened, he is currently on a combination of Levaquin and Zosyn, there has been no growth on BAL cultures from last admission, or blood or sputum culture, nasal swab for MRSA was negative. Follow blood cultures show no growth. Legionella urine antigen was negative. Yesterday CT of the chest was completed showing progressive chronic consolid ation, likely representing progressive pneumonia, enlarged lymph nodes likely reactive. On 07/06/2021 patient seen in follow-up. Patient continues to have intermittent fevers, at 101.8F at noon today. Currently remains on Unasyn and Diflucan, no new growth on cultures including BAL from 06/23/2021. Clinically he appears to be breathing fairly comfortably, no worsening cough or dyspnea, does have exertional dyspnea, no chest discomfort. Patient is on 2 L, his pulse ox of 92- 96%. His chest x-ray from yesterday showed persistent suprahilar and upper lobe airspace infiltrate with underlying cystic changes. Today's labs have been reviewed, with blood cell count is 15.6, hemoglobin is 9.4, platelet count is 592, sodium is 133, potassium is 4.3, chloride is 95, BUN is 16, creatinine 0.6, Legionella urine antigen was negative. On 07/10/2021 patient seen in follow-up. Patient is mildly dyspneic at rest, but states that his breathing is a little better, he is able to bring up some phlegm, steroids were added on yesterday, and patient continues on empiric antibiotics, so far he is BAL cultures have shown no growth other than Jacey. Patient remains on empiric antibiotics in the form of Zosyn, and doxycycline and Diflucan. Vancomycin has been discontinued. Has right middle lobe transbronchial biopsies showed bronchial mucosa and peribronchial alveolar tissue with features of organizing pneumonia and respiratory bronchiolitis, negative for neoplasm. Patient continues on amiodarone nebulized bronchodilators. His T-max in the last 24 hours was 99.8F. Follow-up pro-calcitonin level is pending today. fever pattern has improved in the last 24-48 hours. Today's labs have been reviewed white blood cell count is 9.2, hemoglobin is 9.1, platelet count is 672, electrolytes are within normal limits, BUN is 19 creatinine 0.37. She still has significant exertional dyspnea. But has been insisting on walking to the bathroom. Results of the biopsies and cultures have been discussed with the patient, current treatment plan was discussed. Objective - Vital Signs Vital signs: Vital Signs Temp 97.4 F L 07/10/21 08:00 Pulse 92 07/10/21 09:43 Resp 22 07/10/21 08:00 BP 124/78 07/10/21 08:00 Pulse Ox 82 L 07/10/21 08:00 Intake & Output 07/09/21 07/10/21 07/10/21 18:59 06:59 18:59 Intake Total 1652 590 0 Output Total 200 800 Balance 1452 -210 0 Intake: Intake, IV Titration 350 Amount Ampicillin-Sulbactam 3 gm 100 In Sodium Chloride 0.9% 100 ml @ 200 mls/hr IVPB Q6HR [facility] Rx#:[id number] Vancomycin 1,250 mg In 250 Sodium Chloride 0.9% 250 ml @ 125 mls/hr IVPB Q8H [facility] Rx#:[id number] Oral 1652 240 0 Output: Urine 200 800 Other: Voiding Method Toilet Toilet # Voids 1 3 # Bowel Movements 1 - Exam GENERAL EXAM: Alert, very pleasant, 56-year-old white female, on 8 L of oxygen pulse ox of 92-94%, comfortable in no apparent distress. HEAD: Normocephalic/atraumatic. EYES: Normal reaction of pupils, equal size. Conjunctiva pink, sclera white. NOSE: Clear with pink turbinates. THROAT: No erythema or exudates. NECK: No masses, no JVD, no thyroid enlargement, no adenopathy. CHEST: No chest wall deformity. Symmetrical expansion. LUNGS: Equal air entry with no crackles, wheeze, rhonchi or dullness. CVS: Regular rate and rhythm, normal S1 and S2, no gallops, no murmurs, no rubs ABDOMEN: Soft, nontender. No hepatosplenomegaly, normal bowel sounds, no guarding or rigidity. EXTREMITIES: No clubbing, no edema, no cyanosis, 2+ pulses and upper and lower extremities. MUSCULOSKELETAL: Muscle strength and tone normal. SPINE: No scoliosis or deformity SKIN: No rashes CENTRAL NERVOUS SYSTEM: Alert and oriented -3. No focal deficits, tone is normal in all 4 extremities. PSYCHIATRIC: Alert and oriented -3. Appropriate affect. Intact judgment and insight. - Labs CBC & Chem 7: 07/10/21 07:08 07/10/21 07:08 Labs: Abnormal Lab Results - Last 24 Hours (Table) 07/09/21 07/10/21 07/10/21 Range/Units 06:58 07:08 07:08 WBC 12.48 H (4.50-10.00) X 10*3/uL RBC 3.08 L 3.27 L (4.40-5.60) X 10*6/uL Hgb 8.1 L 9.1 L (13.0-17.0) g/dL Hct 26.0 L 28.2 L (39.6-50.0) % MCH 26.3 L (27.0-32.0) pg MCHC 31.2 L (32.0-37.0) g/dL RDW 15.6 H (11.5-14.5) % Plt Count 592 H 672 H (140-440) X 10*3/uL Immature Gran # 0.11 H (0.00-0.04) X 10*3/uL Neutrophils # 8.93 H (1.80-7.70) X 10*3/uL Monocytes # 1.03 H (0.20-1.00) X 10*3/uL Eosinophils # 0.95 H (0.04-0.35) X 10*3/uL Creatinine 0.37 L (0.66-1.25) mg/dL Glucose 136 H (74-99) mg/dL Calcium 8.3 L (8.4-10.2) mg/dL AST 107 H (17-59) U/L ALT 92 H (4-49) U/L Alkaline Phosphatase 203 H (38-126) U/L C-Reactive Protein 32.5 H (<1.0) mg/dL Total Protein 5.9 L (6.3-8.2) g/dL Albumin 2.3 L (3.5-5.0) g/dL Microbiology - Last 24 Hours (Table) 07/07/21 12:43 Acid Fast Bacilli Smear - Final Bronchial Washings - Right Acid Fast Bacilli Culture - Preliminary 07/07/21 11:31 Gram Stain - Final Sputum Sputum Culture - Final Jacey albicans Assessment and Plan Plan: Assessment: #1. Bilateral upper lobe pneumonia status post recent bronchoscopy with BAL on 06/24/2021, with negative BAL and viral cultures, COVID-19 PCR was negative. Patient is status post repeat bronchoscopy with BAL on 07/07/2021 with transbronchial biopsies of the right middle lobe, brushings and BAL of the right middle lobe, transbronchial biopsies were consistent with organizing pneumonia, BAL cultures negative thus far #2. Recent hospitalization for acute exacerbation of COPD, and bilateral pneumonia, discharged home on 06/25/2021 to complete 2 week course of Augmentin #3. Bullous emphysema/COPD, on home oxygen since the recent hospitalization on 4 L #4. Increased swelling in bilateral lower extremities, possibly related to acute exacerbation of systolic CHF #5. Prior history of myocardial infarction #6. History of paroxysmal A. fib status post AICD and pacemaker insertion #7. CAD with prior stenting #8. History of CHF with systolic dysfunction #9. Ischemic cardiomyopathy with EF of 30-35% #10. History of laparoscopic bilateral inguinal hernia repair #11. History of prescription narcotic abuse currently on Suboxone #12. History of anxiety Plan: Results the transbronchial biopsies have been discussed with the patient The biopsies consistent with organizing pneumonia Continue with IV Solu-Medrol 60 mg every 6 hours Continue antibiotics per ID service recommendations Fever pattern has improved No new growth on his cultures including BAL cultures Follow up procalcitonin level is pending CRP level has been noted Clinically patient is feeling better We'll continue to follow his progress I have personally seen and examined the patient, performed the documentation and the assessment and plan as written. Number of minutes spent on the visit: [15] Time with Patient: Less than 30
--- NOTE | 2021-07-10 14:30 | P.PN ---
Subjective Progress Note Date: 07/10/21 History of Present Illness H&P Date: 06/29/21 The patient is a 56-year-old male with a PMH of coronary artery disease status post multiple stents, hypertension, severe COPD, systolic CHF, who presents to the emergency room for lower extremity edema and fever. Of note, the patient was recently admitted to the hospital from 06/19 to 06/26 for pneumonia requiring IV antibiotics. The patient had undergone bronchoscopy which was also consistent with pneumonia. The patient's hypoxia and shortness of breath had gradually improved following which the patient was discharged with a course of oral Augmentin. Patient reports that since the day following his discharge, he started having intermittent fevers controlled with Tylenol. He reports compliance with his Augmentin at home. He also reported noticing lower extremity edema predominantly involving the ankles. He denied any additional complaints. Reports gradual improvement in his shortness of breath and denied chest discomfort. Continues to use chronic 2 L nasal cannula oxygen at home. Denied abdominal pain, nausea, vomiting, urinary complaints, diarrhea or headache, neck pain, visual disturbances. Laboratory evaluation was remarkable for leukocytosis of 14.3, sodium 133, glucose 174, ALT 158, alk phos 143, troponin 0.017, proBNP 1520, and unremarkable UA with coronavirus PCR negative. Tmax 101.4F. Chest x-ray revealed improvement in aeration with EKG showing sinus tachycardia at 109 bpm. Patient was seen and examined at the bedside. He is feeling better overnight he's currently on 6 L nasal cannula Objective - Vital Signs Vital signs: Vital Signs Temp 97.6 F 07/10/21 11:51 Pulse 97 07/10/21 14:00 Resp 20 07/10/21 14:00 BP 128/85 07/10/21 11:51 Pulse Ox 92 L 07/10/21 11:51 Intake & Output 07/09/21 07/10/21 07/10/21 18:59 06:59 18:59 Intake Total 1652 590 240 Output Total 200 800 225 Balance 1452 -210 15 Intake: Intake, IV Titration 350 Amount Ampicillin-Sulbactam 3 gm 100 In Sodium Chloride 0.9% 100 ml @ 200 mls/hr IVPB Q6HR [facility] Rx#:[id number] Vancomycin 1,250 mg In 250 Sodium Chloride 0.9% 250 ml @ 125 mls/hr IVPB Q8H [facility] Rx#:[id number] Oral 1652 240 240 Output: Urine 200 800 225 Other: Voiding Method Toilet Toilet # Voids 1 3 # Bowel Movements 1 - Exam General: non toxic, no distress, appears older than his stated age. Derm: warm, dry Head: atraumatic, normocephalic, symmetric Eyes: EOMI, no lid lag, anicteric sclera Mouth: no lip lesion, mucus membranes moist Cardiovascular: S1S2 reg, no murmur, positive posterior tibial pulse bilateral, Lungs: Diminished air entry without significant wheezing Abdominal: soft, nontender to palpation, no guarding, no appreciable organomegaly Ext: no gross muscle atrophy, no edema, no contractures Neuro: CN II-XI grossly intact, no focal neuro deficits Psych: Alert, oriented, appropriate affect - Labs CBC & Chem 7: 07/10/21 07:08 07/10/21 07:08 Labs: Abnormal Lab Results - Last 24 Hours (Table) 07/10/21 07/10/21 07/10/21 Range/Units 07:08 07:08 07:08 RBC 3.27 L (4.30-5.90) m/uL Hgb 9.1 L (13.0-17.5) gm/dL Hct 28.2 L (39.0-53.0) % Plt Count 672 H (150-450) k/uL Creatinine 0.37 L (0.66-1.25) mg/dL Glucose 136 H (74-99) mg/dL Calcium 8.3 L (8.4-10.2) mg/dL AST 107 H (17-59) U/L ALT 92 H (4-49) U/L Alkaline Phosphatase 203 H (38-126) U/L C-Reactive Protein 32.5 H (<1.0) mg/dL Total Protein 5.9 L (6.3-8.2) g/dL Albumin 2.3 L (3.5-5.0) g/dL Procalcitonin 0.53 H (0.02-0.09) ng/mL Microbiology - Last 24 Hours (Table) 07/07/21 12:43 Gram Stain - Preliminary Bronchial Washings - Right Bronchial Washings Culture - Preliminary 07/07/21 12:43 Acid Fast Bacilli Smear - Final Bronchial Washings - Right Acid Fast Bacilli Culture - Preliminary 07/07/21 11:31 Gram Stain - Final Sputum Sputum Culture - Final Jacey albicans Assessment and Plan Assessment: Acute on chronic hypoxic respiratory failure secondary to pneumonia and COPD exacerbation Pneumonia, failed outpatient treatment with sepsis -On Diflucan and doxycycline per infectious disease - Status post bronchoscopy with bronchoalveolar lavage July 07 - Beta D glucan, < 31 (negative) - Negative HIV -QuantiFERON Gold TB test came back negative - MRSA negative - Pulm and ID recs - Bronchodilators - pulm hygeine - Blood cultures negative to date. - Repeat Sputum Cx and AFB stain on 07/04 -Sputum grew Jacye Albicans - Cryptococcal antigen, pending - Normal IgG1, IgG3 and IgG4 but IgG2 level is low - IgE level elevated Acute COPD exacerbation -Improving with IV steroids -Bronchodilator treatment -Wean off oxygen as tolerated Acute exacerbation of systolic CHF with EF 30-35 % ASCAD -Oral Lasix -ASA, lipitor, BB -Entresto on hold due to recent hypotension on last hospital stay. Patient plans on following up with his primary sensor specialist regarding this. Bullous emphysema/COPD, on home oxygen since the recent hospitalization on 4 L Thrombocytosis - chronic at baseline - follow CBC Ongoing tobacco abuse -Smoking cessation was advised -nicotine replacement if needed Medical noncompliance Underweight with BMI 18.2 - dietitian recs History of laparoscopic bilateral inguinal hernia repair History of prescription narcotic abuse currently on Suboxone History of anxiety DVT prophylaxis: heparin Anticipated discharge: pending clinical course Anticipated discharge place: home
--- NOTE | 2021-07-10 15:49 | P.PN ---
Subjective Progress Note Date: 07/10/21 Principal diagnosis: Pneumonia Patient is a 56-year-old male who was recently admitted to the hospital and was diagnosed with pneumonia status post bronchoscopy and those culture were negative patient was subsequently discharged home on oral antibiotics and currently admitted to the hospital within 72 hours with a fever. Patient repeat CT did shows progression of his pneumonia and the patient is status post bronchoscopy biopsy and lavage completed 07/07/2021 On today's evaluation that is 07/10/2021, the patient remains to be afebrile, the patient denies chest pain, the patient is breathing more comfortably, the patient cough and decrease in intensity and is not being up any sputum or hemoptysis no nausea no vomiting no abdominal pain and no diarrhea Objective - Vital Signs Vital signs: Vital Signs Temp 97.6 F 07/10/21 11:51 Pulse 98 07/10/21 12:30 Resp 20 07/10/21 11:51 BP 128/85 07/10/21 11:51 Pulse Ox 92 L 07/10/21 11:51 Intake & Output 07/09/21 07/10/21 07/10/21 18:59 06:59 18:59 Intake Total 1652 590 0 Output Total 200 800 Balance 1452 -210 0 Intake: Intake, IV Titration 350 Amount Ampicillin-Sulbactam 3 gm 100 In Sodium Chloride 0.9% 100 ml @ 200 mls/hr IVPB Q6HR [facility] Rx#:[id number] Vancomycin 1,250 mg In 250 Sodium Chloride 0.9% 250 ml @ 125 mls/hr IVPB Q8H [facility] Rx#:[id number] Oral 1652 240 0 Output: Urine 200 800 Other: Voiding Method Toilet Toilet # Voids 1 3 # Bowel Movements 1 - Exam GENERAL DESCRIPTION: Middle-aged male lying in bed in no distress RESPIRATORY SYSTEM: Unlabored breathing , decreased breath sounds at bases HEART: S1 S2 regular rate and rhythm , ABDOMEN: Soft , no tenderness EXTREMITIES: No edema feet - Labs CBC & Chem 7: 07/10/21 07:08 07/10/21 07:08 Labs: Abnormal Lab Results - Last 24 Hours (Table) 07/10/21 07/10/21 07/10/21 Range/Units 07:08 07:08 07:08 RBC 3.27 L (4.30-5.90) m/uL Hgb 9.1 L (13.0-17.5) gm/dL Hct 28.2 L (39.0-53.0) % Plt Count 672 H (150-450) k/uL Creatinine 0.37 L (0.66-1.25) mg/dL Glucose 136 H (74-99) mg/dL Calcium 8.3 L (8.4-10.2) mg/dL AST 107 H (17-59) U/L ALT 92 H (4-49) U/L Alkaline Phosphatase 203 H (38-126) U/L C-Reactive Protein 32.5 H (<1.0) mg/dL Total Protein 5.9 L (6.3-8.2) g/dL Albumin 2.3 L (3.5-5.0) g/dL Procalcitonin 0.53 H (0.02-0.09) ng/mL Microbiology - Last 24 Hours (Table) 07/07/21 12:43 Acid Fast Bacilli Smear - Final Bronchial Washings - Right Acid Fast Bacilli Culture - Preliminary 07/07/21 11:31 Gram Stain - Final Sputum Sputum Culture - Final Jacey albicans Assessment and Plan (1) Febrile illness, acute Current Visit: Yes Status: Acute Code(s): R50.9 - FEVER, UNSPECIFIED SNOMED Code(s): 460220704 (2) Pneumonia Current Visit: Yes Status: Acute Code(s): J18.9 - PNEUMONIA, UNSPECIFIED ORGANISM SNOMED Code(s): 676534388 Plan: 1patient presented to hospital with a fever increasing shortness of breath and this patient was recently diagnosed with the right-sided pneumonia status post bronchoscopy and was culture showed Jacey likely colonizer, failing outpatient oral antibiotic therapy. 2sputum cultures as well as urine for Legionella antigen has been negative [address] of the chest did show progressive pulmonary consolidation, likely representing progressive pneumonia, patient is status post bronchoscopy biopsy and lavage and cultures are currently pending 4-patient antibiotics has been adjusted to Zosyn and doxycycline, and monitor his clinical course closely Time with Patient: Less than 30
[2021-07-10] MEDS: IPRATROPIUM-ALBUTEROL 3 ML NEB INHALATION PRN ×2 (15:57→21:33)
[2021-07-10] MEDS: ATORVASTATIN 40 MG TAB PO SCH (20:22)
[2021-07-10] MEDS: carvediloL 3.125 MG TAB PO SCH (20:22)
[2021-07-11] MEDS: ACETAMINOPHEN TAB 325 MG TAB PO SCH ×3 (05:54→17:04)
[2021-07-11 08:12] LABS: Basophils % (A) 0 %; Eosinophils % (A) 0 %; HCT 28.6 % (39.0-53.0); HGB 8.9 gm/dL (13.0-17.5); Hypochromasia Marked; Lymphocytes # (A) 1.4 k/uL (1.0-4.8); Lymphocytes % (A) 11 %; MCH 27.4 pg (25.0-35.0); MCHC 31.1 g/dL (31.0-37.0); MCV 88.2 fL (80.0-100.0); Mean Platelet Volume 7.8; Monocytes # (A) 0.5 k/uL (0-1.0); Monocytes % (A) 3 %; Neutrophils # (A) 11.1 k/uL (1.3-7.7); Neutrophils % (A) 84 %; Platelet Count 756 k/uL (150-450); RBC 3.24 m/uL (4.30-5.90); RDW 15.2 % (11.5-15.5); WBC 13.1 k/uL (3.8-10.6)
[2021-07-11 08:25] LABS: African American GFR (CKD) >90 (>60 ml/min/1.73 sqM); Anion Gap 11 mmol/L; Blood Urea Nitrogen 29 mg/dL (9-20); Calcium 8.9 mg/dL (8.4-10.2); Carbon Dioxide 25 mmol/L (22-30); Chloride 104 mmol/L (98-107); Glucose 164 mg/dL (74-99); Non-African American GFR(CKD) >90 (>60 ml/min/1.73 sqM); Potassium 4.2 mmol/L (3.5-5.1); Sodium 140 mmol/L (137-145)
[2021-07-11] MEDS: SYMBICORT 80-4.5 MCG INHALER INHALATION SCH ×2 (08:42→21:09)
[2021-07-11] MEDS: IPRATROPIUM 0.5 MG/2.5 ML NEBU INHALATION SCH ×4 (08:42→21:08)
[2021-07-11] MEDS: NON FORMULARY DRUG (Buprenorphine Hcl/Naloxone Hcl [Suboxone 8 Mg-2 Mg Sl Film] 1 EACH Fil SUBLINGUAL SCH (09:23)
[2021-07-11] MEDS: polyethylene glycoL 3350 17 GM POWD.PACK PO SCH (09:32)
[2021-07-11] MEDS: DOCUSATE 100 MG CAP PO SCH ×2 (09:35→20:07)
[2021-07-11] MEDS: HEPARIN SODIUM,PORCINE/PF 5,000 UNIT/0.5 ML SYRINGE SQ SCH ×3 (09:39→23:48)
[2021-07-11] MEDS: methylPREDNISolone SOD SUCCI 125 MG/2 ML VIAL IV SCH ×3 (09:39→23:51)
[2021-07-11] MEDS: PIPERACILLIN-TAZOBACTAM 3.375 GM in SODIUM CHLORIDE 0.9% 100 ML IVPB SCH ×3 (09:40→23:48)
[2021-07-11] MEDS: ASPIRIN 81 MG PO SCH (09:41)
[2021-07-11] MEDS: FLUCONAZOLE 100 MG TAB PO SCH (09:41)
[2021-07-11] MEDS: NICOTINE 21MG/24HR PATCH TRANSDERM SCH (09:41)
[2021-07-11] MEDS: DOXYCYCLINE 100 MG CAP PO SCH ×2 (09:41→20:07)
[2021-07-11] MEDS: FUROSEMIDE 40 MG TAB PO SCH (09:41)
[2021-07-11] MEDS: IPRATROPIUM-ALBUTEROL 3 ML NEB INHALATION PRN (11:38)
--- NOTE | 2021-07-11 14:59 | P.PN ---
Subjective Progress Note Date: 07/11/21 Principal diagnosis: Shortness of breath. 07/03/2021 patient seen in follow-up. He states there is no worsening dyspnea, occasional cough, no significant phlegm production, no chest discomfort, he remains on 2 L of oxygen the pulse ox of 90-93%, his fever pattern has improved in the last 24 hours, although the patient still has persistent low-grade fevers with a T-max of 100.6F. Room air pulse ox is 87%, and patient is very frustrated this morning as he was placed on the schedule for possible bronchoscopy with BAL without proper communication with him. Dr. Lundberg is at the bedside, and patient clinically has not worsened, he is currently on a combination of Levaquin and Zosyn, there has been no growth on BAL cultures from last admission, or blood or sputum culture, nasal swab for MRSA was negative. Follow blood cultures show no growth. Legionella urine antigen was negative. Yesterday CT of the chest was completed showing progressive chronic consolidation, likely representing progressive pneumonia, enlarged lymph nodes likely reactive. On 07/06/2021 patient seen in follow-up. Patient continues to have intermittent fevers, at 101.8F at noon today. Currently remains on Unasyn and Diflucan, no new growth on cultures including BAL from 06/23/2021. Clinically he appears to be breathing fairly comfortably, no worsening cough or dyspnea, does have exer tional dyspnea, no chest discomfort. Patient is on 2 L, his pulse ox of 92-96%. His chest x-ray from yesterday showed persistent suprahilar and upper lobe airspace infiltrate with underlying cystic changes. Today's labs have been reviewed, with blood cell count is 15.6, hemoglobin is 9.4, platelet count is 592, sodium is 133, potassium is 4.3, chloride is 95, BUN is 16, creatinine 0.6, Legionella urine antigen was negative. On 07/10/2021 patient seen in follow-up. Patient is mildly dyspneic at rest, but states that his breathing is a little better, he is able to bring up some phlegm, steroids were added on yesterday, and patient continues on empiric antibiotics, so far he is BAL cultures have shown no growth other than Jacey. Patient remains on empiric antibiotics in the form of Zosyn, and doxycycline and Diflucan. Vancomycin has been discontinued. Has right middle lobe transbr onchial biopsies showed bronchial mucosa and peribronchial alveolar tissue with features of organizing pneumonia and respiratory bronchiolitis, negative for neoplasm. Patient continues on amiodarone nebulized bronchodilators. His T-max in the last 24 hours was 99.8F. Follow-up pro-calcitonin level is pending today. fever pattern has improved in the last 24-48 hours. Today's labs have been reviewed white blood cell count is 9.2, hemoglobin is 9.1, platelet count is 672, electrolytes are within normal limits, BUN is 19 creatinine 0.37. She still has significant exertional dyspnea. But has been insisting on walking to the bathroom. Results of the biopsies and cultures have been discussed with the patient, current treatment plan was discussed. Progress note dated 07/11/2021. The patient's doing much better. The patient feels much less short of breath. He was started on steroids recently, because of shortness of breath, wheezing, and a transbronchial biopsy result which suggested respiratory bronchiolitis and organizing pneumonia. There was no evidence of any malignancy. Remains on antibiotic. No fever since July 08. White count 13.1, hemoglobin 8.9, hematocrit 28.6, platelet count 756,000. Sodium 140, potassium 4.2, chlorides 104, CO2 25, anion gap 11, BUN 29, and creatinine 0.48. Microbiologic studies have been negative all along. There was some Jacey in the sputum. The patient remains on Zosyn and doxycycline as per infectious diseases. The patient's oxygen has been turned down to between 5 and 6 L. Saturations are in the low 90s. Objective - Vital Signs Vital signs: Vital Signs Temp 97.6 F 07/11/21 11:45 Pulse 92 07/11/21 11:50 Resp 16 07/11/21 11:45 BP 125/82 07/11/21 11:45 Pulse Ox 92 L 07/11/21 11:45 Intake & Output 07/10/21 07/11/21 07/11/21 18:59 06:59 18:59 Intake Total 480 1080 236 Output Total 225 400 375 Balance 255 680 -139 Intake: Oral 480 1080 236 Output: Urine 225 400 375 Other: Voiding Method Toilet Toilet Toilet # Bowel Movements 1 - Exam No acute distress, oriented 3. Nasal O2 noted. Saturations are in the low 90s. No respiratory distress, conversational dyspnea, or use of accessory muscles. HEENT examination is grossly unremarkable. Neck supple. Full range of motion. No adenopathy thyromegaly or neck vein distention. Cardiovascular examination reveals regular rhythm rate. S1-S2 normal. No S3 or S4. No discernible murmur noted. Heart rate is 92 bpm. Lungs reveal bibasilar crackles and rhonchi. Minimal bilateral wheezes. Breath sounds are equal bilaterally. Saturations are in the low 90s, on 5-6 L nasal cannula. Abdomen soft bowel sounds are heard. No masses or tenderness. Extremities are intact. No cyanosis clubbing or edema. Skin is without rash or lesion. Neurologic examination is brief but nonfocal. - Labs CBC & Chem 7: 07/11/21 07:54 07/11/21 07:54 Labs: Abnormal Lab Results - Last 24 Hours (Table) 07/11/21 07/11/21 Range/Units 07:54 07:54 WBC 13.1 H (3.8-10.6) k/uL RBC 3.24 L (4.30-5.90) m/uL Hgb 8.9 L (13.0-17.5) gm/dL Hct 28.6 L (39.0-53.0) % Plt Count 756 H (150-450) k/uL Neutrophils # 11.1 H (1.3-7.7) k/uL BUN 29 H (9-20) mg/dL Creatinine 0.48 L (0.66-1.25) mg/dL Glucose 164 H (74-99) mg/dL Microbiology - Last 24 Hours (Table) 07/07/21 12:43 Gram Stain - Final Bronchial Washings - Right Bronchial Washings Culture - Final Assessment and Plan Assessment: Acute hypoxemic respiratory failure with bilateral infiltrates, could relate to infection and/or an inflammatory process. Bronchoscopy, BAL, and transbronchial biopsies, on July 07, revealed evidence of organizing pneumonia and respiratory bronchiolitis. Recent hospitalization for COPD exacerbation and bilateral pneumonia. Bullous emphysema. Prior history of myocardial infarction. History of paroxysmal atrial fibrillation, status post AICD/pacemaker placement. CAD with prior stenting. History of CHF with systolic dysfunction. Ischemic cardiomyopathy with ejection fraction of 30-35%. Laparoscopic bilateral inguinal hernia repair. History of prescription narcotic abuse. History of anxiety. Plan: Plan dated 07/11/2021. The patient is down to 5-6 L nasal cannula. He does feel a lot better. He is much less bronchospastic. He does have occasional cough. No fever since July 08. The patient continues on antibiotics as per infectious diseases, and Solu- Medrol, 60 mg every 6 hours. The patient is also receiving breathing treatments and inhalers. We will continue to follow make recommendations where appropriate. Labs, x-rays, and medications are reviewed. Prognosis is guarded. Time with Patient: Less than 30
--- NOTE | 2021-07-11 16:07 | P.PN ---
Subjective Progress Note Date: 07/11/21 History of Present Illness H&P Date: 06/29/21 The patient is a 56-year-old male with a PMH of coronary artery disease status post multiple stents, hypertension, severe COPD, systolic CHF, who presents to the emergency room for lower extremity edema and fever. Of note, the patient was recently admitted to the hospital from 06/19 to 06/26 for pneumonia requiring IV antibiotics. The patient had undergone bronchoscopy which was also consistent with pneumonia. The patient's hypoxia and shortness of breath had gradually improved following which the patient was discharged with a course of oral Augmentin. Patient reports that since the day following his discharge, he started having intermittent fevers controlled with Tylenol. He reports compliance with his Augmentin at home. He also reported noticing lower extremity edema predominantly involving the ankles. He denied any additional complaints. Reports gradual improvement in his shortness of breath and denied chest discomfort. Continues to use chronic 2 L nasal cannula oxygen at home. Denied abdominal pain, nausea, vomiting, urinary complaints, diarrhea or headache, neck pain, visual disturbances. Laboratory evaluation was remarkable for leukocytosis of 14.3, sodium 133, glucose 174, ALT 158, alk phos 143, troponin 0.017, proBNP 1520, and unremarkable UA with coronavirus PCR negative. Tmax 101.4F. Chest x-ray revealed improvement in aeration with EKG showing sinus tachycardia at 109 bpm. Patient was seen and examined at the bedside. He is feeling better overnight he's currently on 6 L nasal cannula Objective - Vital Signs Vital signs: Vital Signs Temp 97.6 F 07/11/21 11:45 Pulse 92 07/11/21 11:50 Resp 16 07/11/21 11:45 BP 125/82 07/11/21 11:45 Pulse Ox 92 L 07/11/21 11:45 Intake & Output 07/10/21 07/11/21 07/11/21 18:59 06:59 18:59 Intake Total 480 1080 236 Output Total 225 400 375 Balance 255 680 -139 Intake: Oral 480 1080 236 Output: Urine 225 400 375 Other: Voiding Method Toilet Toilet Toilet # Bowel Movements 1 - Exam General: non toxic, no distress, appears older than his stated age. Derm: warm, dry Head: atraumatic, normocephalic, symmetric Eyes: EOMI, no lid lag, anicteric sclera Mouth: no lip lesion, mucus membranes moist Cardiovascular: S1S2 reg, no murmur, positive posterior tibial pulse bilateral, Lungs: Diminished air entry without significant wheezing Abdominal: soft, nontender to palpation, no guarding, no appreciable organomegaly Ext: no gross muscle atrophy, no edema, no contractures Neuro: CN II-XI grossly intact, no focal neuro deficits Psych: Alert, oriented, appropriate affect - Labs CBC & Chem 7: 07/11/21 07:54 07/11/21 07:54 Labs: Abnormal Lab Results - Last 24 Hours (Table) 07/11/21 07/11/21 Range/Units 07:54 07:54 WBC 13.1 H (3.8-10.6) k/uL RBC 3.24 L (4.30-5.90) m/uL Hgb 8.9 L (13.0-17.5) gm/dL Hct 28.6 L (39.0-53.0) % Plt Count 756 H (150-450) k/uL Neutrophils # 11.1 H (1.3-7.7) k/uL BUN 29 H (9-20) mg/dL Creatinine 0.48 L (0.66-1.25) mg/dL Glucose 164 H (74-99) mg/dL Microbiology - Last 24 Hours (Table) 07/07/21 12:43 Gram Stain - Final Bronchial Washings - Right Bronchial Washings Culture - Final Assessment and Plan Assessment: Acute on chronic hypoxic respiratory failure secondary to pneumonia and COPD exacerbation Pneumonia, failed outpatient treatment with sepsis -On Diflucan and doxycycline per infectious disease - Status post bronchoscopy with bronchoalveolar lavage July 07 - Beta D glucan, < 31 (negative) - Negative HIV -QuantiFERON Gold TB test came back negative - MRSA negative - Pulm and ID recs - Bronchodilators - pulm hygeine - Blood cultures negative to date. - Repeat Sputum Cx and AFB stain on 07/04 -Sputum grew Jacey Albicans - Cryptococcal antigen, pending - Normal IgG1, IgG3 and IgG4 but IgG2 level is low - IgE level elevated Acute COPD exacerbation -Improving with IV steroids -Bronchodilator treatment -Wean off oxygen as tolerated Acute exacerbation of systolic CHF with EF 30-35 % ASCAD -Oral Lasix -ASA, lipitor, BB -Entresto on hold due to recent hypotension on last hospital stay. 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 Bullous emphysema/COPD, on home oxygen since the recent hospitalization on 4 L Thrombocytosis - chronic at baseline - follow CBC Ongoing tobacco abuse -Smoking cessation was advised -nicotine replacement if needed Medical noncompliance Underweight with BMI 18.2 - dietitian lois History of laparoscopic bilateral inguinal hernia repair History of prescription narcotic abuse currently on Suboxone History of anxiety DVT prophylaxis: heparin Anticipated discharge: pending clinical course Anticipated discharge place: home
[2021-07-11] MEDS: ATORVASTATIN 40 MG TAB PO SCH (20:07)
[2021-07-11] MEDS: carvediloL 3.125 MG TAB PO SCH (20:07)
--- NOTE | 2021-07-11 22:01 | P.PN ---
Subjective Progress Note Date: 07/11/21 Principal diagnosis: Pneumonia Patient is a 56-year-old male who was recently admitted to the hospital and was diagnosed with pneumonia status post bronchoscopy and those culture were negative patient was subsequently discharged home on oral antibiotics and currently admitted to the hospital within 72 hours with a fever. Patient repeat CT did shows progression of his pneumonia and the patient is status post bronchoscopy biopsy and lavage completed 07/07/2021 On today's evaluation that is 07/11/2021, the patient has been afebrile, the patient denies chest pain, the patient is breathing more comfortably and is down to 6 L nasal cannula oxygen, the patient cough and decrease in intensity and is not being up any sputum or hemoptysis no nausea no vomiting no abdominal pain and no diarrhea Objective - Vital Signs Vital signs: Vital Signs Temp 97.7 F 07/11/21 15:40 Pulse 93 07/11/21 15:40 Resp 16 07/11/21 15:40 BP 127/81 07/11/21 15:40 Pulse Ox 93 L 07/11/21 15:40 Intake & Output 07/10/21 07/11/21 07/11/21 18:59 06:59 18:59 Intake Total 480 1080 236 Output Total 225 400 375 Balance 255 680 -139 Intake: Oral 480 1080 236 Output: Urine 225 400 375 Other: Voiding Method Toilet Toilet Toilet # Bowel Movements 1 - Exam GENERAL DESCRIPTION: Middle-aged male lying in bed in no distress RESPIRATORY SYSTEM: Unlabored breathing , decreased breath sounds at bases HEART: S1 S2 regular rate and rhythm , ABDOMEN: Soft , no tenderness EXTREMITIES: No edema feet - Labs CBC & Chem 7: 07/11/21 07:54 07/11/21 07:54 Labs: Abnormal Lab Results - Last 24 Hours (Table) 07/11/21 07/11/21 Range/Units 07:54 07:54 WBC 13.1 H (3.8-10.6) k/uL RBC 3.24 L (4.30-5.90) m/uL Hgb 8.9 L (13.0-17.5) gm/dL Hct 28.6 L (39.0-53.0) % Plt Count 756 H (150-450) k/uL Neutrophils # 11.1 H (1.3-7.7) k/uL BUN 29 H (9-20) mg/dL Creatinine 0.48 L (0.66-1.25) mg/dL Glucose 164 H (74-99) mg/dL Microbiology - Last 24 Hours (Table) 07/07/21 12:43 Gram Stain - Final Bronchial Washings - Right Bronchial Washings Culture - Final Assessment and Plan (1) Febrile illness, acute Current Visit: Yes Status: Acute Code(s): R50.9 - FEVER, UNSPECIFIED SNOMED Code(s): 795121965 (2) Pneumonia Current Visit: Yes Status: Acute Code(s): J18.9 - PNEUMONIA, UNSPECIFIED ORGANISM SNOMED Code(s): 088593244 Plan: 1patient presented to hospital with a fever increasing shortness of breath and this patient was recently diagnosed with the right-sided pneumonia status post bronchoscopy and was culture showed Jacey likely colonizer, failing outpatient oral antibiotic therapy. 2sputum cultures as well as urine for Legionella antigen has been negative [address] of the chest did show progressive pulmonary consolidation, likely representing progressive pneumonia, patient is status post bronchoscopy biopsy and lavage and cultures are so far negative 4-patient to continue with Zosyn and doxycycline, and monitor his clinical course closely Time with Patient: Less than 30
[2021-07-12] MEDS: ACETAMINOPHEN TAB 325 MG TAB PO SCH ×5 (05:11→23:28)
[2021-07-12] MEDS: IPRATROPIUM 0.5 MG/2.5 ML NEBU INHALATION SCH ×4 (08:10→20:48)
[2021-07-12] MEDS: NON FORMULARY DRUG (Buprenorphine Hcl/Naloxone Hcl [Suboxone 8 Mg-2 Mg Sl Film] 1 EACH Fil SUBLINGUAL SCH (08:58)
[2021-07-12] MEDS: polyethylene glycoL 3350 17 GM POWD.PACK PO SCH (08:58)
[2021-07-12] MEDS: DOCUSATE 100 MG CAP PO SCH ×3 (08:58→20:56)
[2021-07-12] MEDS: PIPERACILLIN-TAZOBACTAM 3.375 GM in SODIUM CHLORIDE 0.9% 100 ML IVPB SCH ×3 (08:59→23:20)
[2021-07-12] MEDS: SYMBICORT 80-4.5 MCG INHALER INHALATION SCH ×2 (09:02→20:48)
[2021-07-12] MEDS: IPRATROPIUM-ALBUTEROL 3 ML NEB INHALATION PRN ×3 (09:02→16:02)
[2021-07-12] MEDS: NICOTINE 21MG/24HR PATCH TRANSDERM SCH (09:13)
[2021-07-12] MEDS: FUROSEMIDE 40 MG TAB PO SCH (09:14)
[2021-07-12] MEDS: HEPARIN SODIUM,PORCINE/PF 5,000 UNIT/0.5 ML SYRINGE SQ SCH ×3 (09:14→23:28)
[2021-07-12] MEDS: ASPIRIN 81 MG PO SCH (09:14)
[2021-07-12] MEDS: methylPREDNISolone SOD SUCCI 125 MG/2 ML VIAL IV SCH ×3 (09:14→23:19)
[2021-07-12] MEDS: DOXYCYCLINE 100 MG CAP PO SCH ×2 (09:14→20:54)
--- NOTE | 2021-07-12 13:19 | P.PN ---
Subjective Progress Note Date: 07/12/21 56-year-old male patient with known history of COPD, chronic smoker, CAD, paroxysmal A. fib status post pacemaker insertion, chronic CHF with systolic dysfunction, ischemic cardiomyopathy with EF of 30-35% with AICD placement, anxiety who was recently hospitalized for acute exacerbation of COPD, complica francis with possible pneumonia. Patient's chest x-ray showed bilateral airspace disease, underlying emphysema. CT angiogram of the chest showed no evidence of pulmonary embolism, extensive bullous pulmonary emphysema, with extensive honeycombing infiltrate in the mid and upper lung hendricks. Patient was treated with a combination of Rocephin and Zithromax initially, however he continued to have intermittent febrile episodes and subsequently he was switched to Zosyn by infectious disease service. Patient ended up having bronchoalveolar lavage on 06/24/[address] Ulloa, and BAL cultures showed no growth other than Jacey albicans. A separate BAL cultures were taken from right upper lobe and left lower lobe, cytology was negative for diagnostic malignancy. BAL cultures and viral cultures were negative. Patient was clinically improving, after being switched over to Zosyn patient's fever pattern had improved, and subsequently he was discharged home on oral course of Augmentin, and we recommended at least 2 week treatment with Augmentin, completion of prednisone taper and patient was sent home on home oxygen at 4 L. Patient states he was discharged on a Tuesday, by Tuesday night he started having increased swelling in his lower extremities, he could hardly get his socks on. At the same time he started developing a fever. He states he picked up his antibiotics and was taking them, he denied any worsening shortness of breath, no cough, no phlegm production, no hemoptysis no chest pain. No swelling or tenderness in the bilateral calves. He came into the emergency department for reevaluation on 06/29/2021. His temperature on admission was 101.4F. Chest x-ray showed findings similar to the prior exam with bilateral airspace disease, increased interstitium and underlying emphysema. Admission labs showed white blood cell count of 14.3, hemoglobin 12.4, sodium is 133, the rest of electrolytes were unremarkable, B1 is 16 creatinine 0.55, proBNP was 1520, troponin was 0.017, AST was 46, ALT was 158, alk phos was 146, urinalysis showed no evidence of infection, patient tested negative for COVID 19. Patient was started on vancomycin for antibiotic coverage, and Zosyn. He was started on oral Lasix after a single dose of IV Lasix 40 mg. Currently ankle edema is improving, he is diuresing, he continues on the bronchodilators. On 07/01/2021 patient seen in follow-up on medical surgical floor, he states he is breathing comfortably, he is currently on 2 L of oxygen his pulse ox is 91- 93%. His ankle swelling is significantly down, this morning patient was able to produce a sputum specimen which was sent for culture, follow-up chest x-ray today showing confluent densities in the upper lobes, and worsening pneumonia. Patient currently remains on Zosyn and vancomycin. No fever or chills overnight. White blood cell count is 10.6, hemoglobin is 10.9, sodium is 131, the rest of the electrolytes and renal profile were unremarkable, LFTs are improved. No chest discomfort, no hemoptysis. Patient continues on nebulized bronchodilators, he is on oral dose of Lasix 40 mg daily. On 07/02/2021 patient seen in follow-up on medical surgical floor. He is still having intermittent fevers, T-max in last 24 hours 101.8F, patient was initially covered with a combination of Zosyn and vancomycin, ID service recommended discontinuing vancomycin and patient is currently on Zosyn and Levaquin has been added. Urine for Legionella antigen will be sent. Cultures reviewed, blood cultures have been negative, sputum Gram stain showing rare PMNs, few gram-positive cocci in clusters, few budding yeast. BAL cultures showed Jacey albicans. Today's labs reviewed, with blood cell count 12.3, hemoglobin is 9.3, sodium is 1:0, potassium is 4.3, B1 17 creatinine 0.57, CRP is 20.8, and pro-calcitonin level was 0.56. No worsening cough or hemoptysis, no chest pain, no altered mentation, hemodynamically has been stable, he has been tolerating ambulation in the room. Lower extremity swelling has significantly improved, patient remains on once daily dose of Lasix. 07/03/2021 patient seen in follow-up. He states there is no worsening dyspnea, occasional cough, no significant phlegm production, no chest discomfort, he remains on 2 L of oxygen the pulse ox of 90-93%, his fever pattern has improved in the last 24 hours, although the patient still has persistent low-grade fevers with a T-max of 100.6F. Room air pulse ox is 87%, and patient is very frust rated this morning as he was placed on the schedule for possible bronchoscopy with BAL without proper communication with him. Dr. Lundberg is at the bedside, and patient clinically has not worsened, he is currently on a combination of Levaquin and Zosyn, there has been no growth on BAL cultures from last admission, or blood or sputum culture, nasal swab for MRSA was negative. Follow blood cultures show no growth. Legionella urine antigen was negative. Yesterday CT of the chest was completed showing progressive chronic consolidation, likely representing progressive pneumonia, enlarged lymph nodes likely reactive. The patient is seen today 07/04/2021 in follow-up on the regular medical floor. He is currently sitting up in bed. Awake and alert in no acute distress. He is currently maintaining O2 saturations in the mid 90s on 2 L/m per nasal cannula. He did spike another fever this morning of 102.6. No worsening shortness of breath, cough or congestion. Blood cultures are revealing no growth. Sputum culture revealed no growth. White count 13.7. Hemoglobin 9.5. Platelets 587. Sodium 132. Potassium 4.4. BUN 16. Creatinine 0.7. Glucose 131. Antibiotics have been modified to Unasyn and Levaquin. He remains on oral diuretics. NicoDerm patch in place. The patient is seen today 07/07/2021 in follow-up on the regular medical floor. He is currently sitting up in bed. Awake and alert in no acute distress. He did have some issues with increased hypoxemia while laying flat last night. He is currently on 6 L high flow nasal cannula with O2 saturation in low 90s. He's been afebrile. Hemodynamically stable. Sputum culture reveals no growth. AFB results pending. Blood culture reveals no growth. Creatinine 0.60. He is continued on Symbicort, DuoNeb inhalations antibiotics in the form of vancomycin and Unasyn. Remains on oral diuretics. Heparin for DVT prophylaxis. NicoDerm patch is in place. The patient is seen today 07/08/2021 in follow-up on the regular medical floor. He remains awake and alert. Sitting up in bed. He is feeling a bit more short of breath and weak today compared to yesterday. He did undergo bronchoscopy with BAL, brushings and biopsies. Cultures and cytology pending. White count 10.3. Hemoglobin 8.2. Platelet count 556. Neutrophils 7.8. Sodium 135. Potassium 3.9. BUN 18. Creatinine 0.58. Glucose 113. Calcium 7.7. AST 81. ALT 56. Alk phos 155. Vancomycin trough 7.7. IgE level 1651. Initial sputum culture positive for Jacey only. He remains on Diflucan. He is also on antibiotics in the form of vancomycin and Unasyn. NicoDerm patch in place. The patient is seen today 07/09/2021 in follow-up on the regular medical floor. He is sitting up in bed. Awake and alert. Feeling a bit better today compared to yesterday. Still with a loose cough. Still requiring 6 L high flow nasal cannula to maintain O2 saturation the high 80s low 90s. He is continued on vancomycin, Unasyn, Diflucan. Continued on bronchodilators. Cultures and pathology are still pending. White count 12.4. Hemoglobin 8.1. Platelets 592. Sodium 137. Potassium 4.1. BUN 12. Creatinine 0.5. The patient is seen today 07/12/2021 in follow-up on the selective care unit. He is currently sitting up in bed. Awake and alert in no acute distress. He is maintaining O2 saturations in the upper 80s low 90s on 6 L high flow nasal cannula. He is currently afebrile. Hemodynamically stable. Bronchial wash cultures revealed no growth. Cytology revealed evidence of organizing pneumonia. No evidence of malignancy. He remains on IV Solu-Medrol, DuoNeb inhalations, Symbicort. Antibiotics in form of Vibramycin and Zosyn. Objective - Vital Signs Vital signs: Vital Signs Temp 97.6 F 07/12/21 08:45 Pulse 92 07/12/21 09:13 Resp 26 H 07/12/21 08:45 BP 121/77 07/12/21 08:45 Pulse Ox 88 L 07/12/21 08:45 Intake & Output 07/11/21 07/12/21 07/12/21 17:59 06:59 18:59 Intake Total 118 Output Total 450 Balance -332 Intake: Oral 118 Output: Urine 450 Other: Voiding Method Toilet - Exam GENERAL EXAM: Alert, 56-year-old male patient, on 6 L of oxygen pulse ox of 88%, fairly comfortable in no apparent distress. HEAD: Normocephalic/atraumatic. EYES: Normal reaction of pupils, equal size. Conjunctiva pink, sclera white. NOSE: Clear with pink turbinates. THROAT: No erythema or exudates. NECK: No masses, no JVD, no thyroid enlargement, no adenopathy. CHEST: No chest wall deformity. Symmetrical expansion. LUNGS: Equal air entry with few scattered rhonchi. Diminished CVS: Regular rate and rhythm, normal S1 and S2, no gallops, no murmurs, no rubs ABDOMEN: Soft, nontender. No hepatosplenomegaly, normal bowel sounds, no guarding or rigidity. EXTREMITIES: No clubbing, no edema, no cyanosis, 2+ pulses and upper and lower extremities. MUSCULOSKELETAL: Muscle strength and tone normal. SPINE: No scoliosis or deformity SKIN: No rashes CENTRAL NERVOUS SYSTEM: No focal deficits, tone is normal in all 4 extremities. PSYCHIATRIC: Alert and oriented -3. Appropriate affect. Intact judgment and insight. - Labs CBC & Chem 7: 07/11/21 07:54 07/11/21 07:54 Labs: Microbiology - Last 24 Hours (Table) 07/07/21 12:43 Gram Stain - Final Bronchial Washings - Right Bronchial Washings Culture - Final Assessment and Plan Assessment: 1 Persistent fever, despite antibiotics, rule out bacteremia, blood cultures reveal no growth, sputum culture revealing no growth, AFB pending. Current coverage with Vibramycin and Zosyn. COVID-19 PCR was negative. Bronchoscopy with BAL, brushings and biopsies performed on 07/07/2021. Cultures revealing no growth. Cytology reveals evidence of organizing pneumonia. No evidence of malignancy.. 2 Bilateral upper lobe pneumonia, stable on the chest x-ray, status post recent bronchoscopy with BAL on 06/24/2021, and BAL cultures were negative, viral cultures have been negative, COVID-19 PCR was negative 3 Recent hospitalization for acute exacerbation of COPD, and bilateral pneumon ia, discharged home on 06/25/2021 to complete 2 week course of Augmentin 4 Bullous emphysema/COPD, on home oxygen since the recent hospitalization on 4 L 5 Increased swelling in bilateral lower extremities, possibly related to acute exacerbation of systolic CHF 6 Prior history of myocardial infarction 7 History of paroxysmal A. fib status post AICD and pacemaker insertion 8 CAD with prior stenting 9 History of CHF with systolic dysfunction 10 Ischemic cardiomyopathy with EF of 30-35% 11 History of laparoscopic bilateral inguinal hernia repair 12 History of prescription narcotic abuse currently on Suboxone 13 History of anxiety 14 Anemia, current hemoglobin 8.2 Plan: Patient was seen and evaluated Bronchial wash cultures revealing no growth Cytology positive for organizing pneumonia, negative malignancy Continued on Vibramycin and Zosyn Of continued on IV Solu-Medrol, bronchodilators Titrate the FiO2 as tolerated Increase his activity as tolerated Follow-up chest x-ray in a.m. We will continue to follow I have personally seen and examined the patient, performed the documentation and the assessment and plan as written. Number of minutes spent on the visit: 10.
--- NOTE | 2021-07-12 15:16 | P.PN ---
Subjective Progress Note Date: 07/12/21 History of Present Illness H&P Date: 06/29/21 The patient is a 56-year-old male with a PMH of coronary artery disease status post multiple stents, hypertension, severe COPD, systolic CHF, who presents to the emergency room for lower extremity edema and fever. Of note, the patient was recently admitted to the hospital from 06/19 to 06/26 for pneumonia requiring IV antibiotics. The patient had undergone bronchoscopy which was also consistent with pneumonia. The patient's hypoxia and shortness of breath had gradually improved following which the patient was discharged with a course of oral Augmentin. Patient reports that since the day following his discharge, he started having intermittent fevers controlled with Tylenol. He reports compliance with his Augmentin at home. He also reported noticing lower extremity edema predominantly involving the ankles. He denied any additional complaints. Reports gradual improvement in his shortness of breath and denied chest discomfort. Continues to use chronic 2 L nasal cannula oxygen at home. Denied abdominal pain, nausea, vomiting, urinary complaints, diarrhea or headache, neck pain, visual disturbances. Laboratory evaluation was remarkable for leukocytosis of 14.3, sodium 133, glucose 174, ALT 158, alk phos 143, troponin 0.017, proBNP 1520, and unremarkable UA with coronavirus PCR negative. Tmax 101.4F. Chest x-ray revealed improvement in aeration with EKG showing sinus tachycardia at 109 bpm. Patient was seen and examined at the bedside. Patient is feeling better. He is currently on 6 L nasal cannula Objective - Vital Signs Vital signs: Vital Signs Temp 97.6 F 07/12/21 08:45 Pulse 92 07/12/21 13:41 Resp 18 07/12/21 13:41 BP 121/77 07/12/21 08:45 Pulse Ox 88 L 07/12/21 08:45 Intake & Output 07/11/21 07/12/21 07/12/21 17:59 06:59 18:59 Intake Total 238 Output Total 850 Balance -612 Intake: Oral 238 Output: Urine 850 Other: Voiding Method Toilet # Bowel Movements 1 - Exam General: non toxic, no distress, appears older than his stated age. Derm: warm, dry Head: atraumatic, normocephalic, symmetric Eyes: EOMI, no lid lag, anicteric sclera Mouth: no lip lesion, mucus membranes moist Cardiovascular: S1S2 reg, no murmur, positive posterior tibial pulse bilateral, Lungs: Diminished air entry without significant wheezing Abdominal: soft, nontender to palpation, no guarding, no appreciable organomegaly Ext: no gross muscle atrophy, no edema, no contractures Neuro: CN II-XI grossly intact, no focal neuro deficits Psych: Alert, oriented, appropriate affect - Labs CBC & Chem 7: 07/11/21 07:54 07/11/21 07:54 Labs: Microbiology - Last 24 Hours (Table) 07/07/21 12:43 Gram Stain - Final Bronchial Washings - Right Bronchial Washings Culture - Final Assessment and Plan Assessment: Acute on chronic hypoxic respiratory failure secondary to pneumonia and COPD exacerbation Pneumonia, failed outpatient treatment with sepsis -On Diflucan and doxycycline per infectious disease - Status post bronchoscopy with bronchoalveolar lavage July 07 - Beta D glucan, < 31 (negative) - Negative HIV -QuantiFERON Gold TB test came back negative - MRSA negative - Pulm and ID recs - Bronchodilators - pulm hygeine - Blood cultures negative to date. - Repeat Sputum Cx and AFB stain on 07/04 -Sputum grew Jacey Albicans - Cryptococcal antigen, pending - Normal IgG1, IgG3 and IgG4 but IgG2 level is low - IgE level elevated Acute COPD exacerbation -Improving with IV steroids -Bronchodilator treatment -Wean off oxygen as tolerated Acute exacerbation of systolic CHF with EF 30-35 % ASCAD -Oral Lasix -ASA, lipitor, BB -Entresto on hold due to recent hypotension on last hospital stay. Patient plans on following up with his primary manager [employer] regarding this. Bullous emphysema/COPD, on home oxygen since the recent hospitalization on 4 L Thrombocytosis - chronic at baseline - follow CBC Ongoing tobacco abuse -Smoking cessation was advised -nicotine replacement if needed Medical noncompliance Underweight with BMI 18.2 - dietitian recs History of laparoscopic bilateral inguinal hernia repair History of prescription narcotic abuse currently on Suboxone History of anxiety DVT prophylaxis: heparin Anticipated discharge: pending clinical course Anticipated discharge place: home
[2021-07-12] MEDS: carvediloL 3.125 MG TAB PO SCH (20:54)
[2021-07-12] MEDS: ATORVASTATIN 40 MG TAB PO SCH (20:54)
[2021-07-12 22:07] LABS: Histoplasma Abs by ID Detected (None Detected)
[2021-07-13] MEDS: ACETAMINOPHEN TAB 325 MG TAB PO SCH ×3 (06:46→17:19)
[2021-07-13] MEDS: HEPARIN SODIUM,PORCINE/PF 5,000 UNIT/0.5 ML SYRINGE SQ SCH ×2 (07:59→17:17)
[2021-07-13] MEDS: PIPERACILLIN-TAZOBACTAM 3.375 GM in SODIUM CHLORIDE 0.9% 100 ML IVPB SCH ×2 (08:00→17:17)
[2021-07-13] MEDS: polyethylene glycoL 3350 17 GM POWD.PACK PO SCH (08:00)
[2021-07-13] MEDS: methylPREDNISolone SOD SUCCI 125 MG/2 ML VIAL IV SCH (08:00)
[2021-07-13] MEDS: DOCUSATE 100 MG CAP PO SCH ×2 (08:00→21:02)
[2021-07-13] MEDS: FUROSEMIDE 40 MG TAB PO SCH (08:01)
[2021-07-13] MEDS: ASPIRIN 81 MG PO SCH (08:01)
[2021-07-13] MEDS: NICOTINE 21MG/24HR PATCH TRANSDERM SCH (08:01)
[2021-07-13] MEDS: DOXYCYCLINE 100 MG CAP PO SCH ×2 (08:01→21:04)
[2021-07-13] MEDS: NON FORMULARY DRUG (Buprenorphine Hcl/Naloxone Hcl [Suboxone 8 Mg-2 Mg Sl Film] 1 EACH Fil SUBLINGUAL SCH (08:30)
--- NOTE | 2021-07-13 08:36 | XR ---
EXAMINATION TYPE: XR chest 1V portable DATE OF EXAM: 07/13/2021 COMPARISON: Chest x-ray 07/07/2021 HISTORY: Pneumonia TECHNIQUE: Single frontal view of the chest is obtained. FINDINGS: Right-sided PICC line shows the distal tip near the cavoatrial junction level. Left-sided generator is present with the defibrillator lead within the right ventricle. No evident pneumothorax or pleural effusion. Bilateral pneumonia, prominence interstitium and lung volume is again seen. Ther e are overlying leads. Cardiac mediastinal silhouette is stable. IMPRESSION: There may be some slight interval improvement in aeration.
[2021-07-13] MEDS ORDERED: SALINE NASAL GEL 14.1 GM TUBE NASAL PRN (11:01)
[2021-07-13] MEDS: SYMBICORT 80-4.5 MCG INHALER INHALATION SCH ×2 (11:37→20:14)
[2021-07-13] MEDS: IPRATROPIUM 0.5 MG/2.5 ML NEBU INHALATION SCH ×4 (11:38→20:12)
[2021-07-13] MEDS ORDERED: SODIUM CHLORIDE 0.65% NASAL SPRAY 44 ML BTL NASAL PRN (11:51)
--- NOTE | 2021-07-13 15:50 | P.PN ---
Subjective Progress Note Date: 07/13/21 56-year-old male patient with known history of COPD, chronic smoker, CAD, paroxysmal A. fib status post pacemaker insertion, chronic CHF with systolic dysfunction, ischemic cardiomyopathy with EF of 30-35% with AICD placement, anxiety who was recently hospitalized for acute exacerbation of COPD, compli cated with possible pneumonia. Patient's chest x-ray showed bilateral airspace disease, underlying emphysema. CT angiogram of the chest showed no evidence of pulmonary embolism, extensive bullous pulmonary emphysema, with extensive honeycombing infiltrate in the mid and upper lung hendricks. On 07/13/2021, seeing the patient for a follow-up. Noted the patient has advanced COPD with extensive bilateral consolidation in the upper lobes bilaterally. The patient's workup has been negative in terms of identifying any particular infectious agent. 2 bronchoscopies yielded no microbial growth. There is a positive histoplasma antibodies which could be essentially chronic. Presentation is not typical of acute histoplasma pneumonia. Note that the patient also underwent a right middle lobe transbronchial biopsies. The pathologic findings were consistent with bronchial mucosal inflammation and peribronchial alveolar tissue with organizing pneumonia and respiratory bronchiolitis. He was negative for malignancy. It was negative for any fungal elements. . Also, the bronchioloalveolar lavage showed no evidence of any fungal elements. The patient remains on IV Zosyn and doxycycline. The patient has a white cell count of 13.4 with hemoglobin 8.9. The platelet count is at 756. Rest of the electrodes are all within normal limits. His shortness of breath with limited amount of activity and sometimes even at rest. Nevertheless, there is no interval worsening his oxygenation and patient remains on 2 liters of oxygen by nasal cannula. The patient is a bit anxious. He has developed some increased edema in lower extremities bilaterally. In fact it is on the case. I took the patient off the IV Solu Medrol as the patient does not show any signs of bronchospasm wheezing and the patient is currently on 10 mg of prednisone. He is on bronchodilators. Is a bit anxious. He remains on oxygen at 2 L per minute nasal cannula. His current antibiotic coverage included IV Zosyn and doxycycline. Objective - Vital Signs Vital signs: Vital Signs Temp 97.8 F 07/13/21 11:08 Pulse 93 07/13/21 14:00 Resp 24 07/13/21 14:00 BP 136/87 07/13/21 11:08 Pulse Ox 94 L 07/13/21 13:17 Intake & Output 07/12/21 07/13/21 07/13/21 18:59 06:59 18:59 Intake Total 598 924 Output Total 1350 300 950 Balance -752 -300 -26 Intake: Oral 598 924 Output: Urine 1350 300 950 Other: Voiding Method Toilet Toilet Toilet Urinal Urinal # Voids 1 # Bowel Movements 1 1 - Exam GENERAL EXAM: Alert, very pleasant, 56-year-old male patient, on 2 L of oxygen pulse ox of 96%, comfortable in no apparent distress. HEAD: Normocephalic/atraumatic. EYES: Normal reaction of pupils, equal size. Conjunctiva pink, sclera white. NOSE: Clear with pink turbinates. THROAT: No erythema or exudates. NECK: No masses, no JVD, no thyroid enlargement, no adenopathy. CHEST: No chest wall deformity. Symmetrical expansion. LUNGS: Equal air entry with few scattered rhonchi. CVS: Regular rate and rhythm, normal S1 and S2, no gallops, no murmurs, no rubs ABDOMEN: Soft, nontender. No hepatosplenomegaly, normal bowel sounds, no guarding or rigidity. EXTREMITIES: No clubbing, no edema, no cyanosis, 2+ pulses and upper and lower extremities. MUSCULOSKELETAL: Muscle strength and tone normal. SPINE: No scoliosis or deformity SKIN: No rashes CENTRAL NERVOUS SYSTEM: No focal deficits, tone is normal in all 4 extremities. PSYCHIATRIC: Alert and oriented -3. Appropriate affect. Intact judgment and insight. - Labs CBC & Chem 7: 07/11/21 07:54 07/11/21 07:54 Labs: Abnormal Lab Results - Last 24 Hours (Table) 07/06/21 Range/Units 10:26 Histoplasma Ab Imm Diff Detected A (None Detected) Histoplasma Mycel Ab CF 1:128 H (<1:8) Histoplasma Yeast Ab CF 1:16 H (<1:8) Assessment and Plan Assessment: I 1 advanced COPD with bilateral pneumonia with upper lobe predominance. Bronchoscopy 2 has been negative for microbial growth. All of the microbial evaluation including bronchial lavage and transbronchial biopsy showed no evidence of any fungal growth within the lungs. Routine microbial and vitamin masses is been negative., COVID 19 19 testing is been negative. The patient has histoplasma antibodies, this was identified by complement-fixation. Nevertheless, the character presentation is atypical and this could be related to an old histoplasma exposure. Fungitell has been negative, Aspergillus antibodies have been negative. 2 acute hypoxic respiratory failure secondary to above currently on 6 L about 2 by nasal cannula 3 Recent hospitalization for acute exacerbation of COPD, and bilateral pneumonia, discharged home on 06/25/2021 to complete 2 week course of Augmentin 4 Bullous emphysema/COPD, on home oxygen 5 Increased swelling in bilateral lower extremities, possibly related to acute exacerbation of systolic CHF 6 Prior history of myocardial infarction 7 History of paroxysmal A. fib status post AICD and pacemaker insertion 8 CAD with prior stenting 9 History of CHF with systolic dysfunction 10 Ischemic cardiomyopathy with EF of 30-35% 11 History of laparoscopic bilateral inguinal hernia repair 12 History of prescription narcotic abuse currently on Suboxone 13 History of anxiety Plan: The patient is afebrile Check histoplasma urine antigen Continue same antibiotic coverage This continued IV Solu Medrol and put the patient on prednisone 10 mg for another 5 days and then discontinue The patient will be taken off the IV fluids and continue with oral Lasix Prognosis remains poor based on above. Attempt to wean down the oxygen and try to bring it down under 5 L We'll continue to follow Prognosis poor Case was discussed with the .
--- NOTE | 2021-07-13 17:16 | P.PN ---
Subjective Progress Note Date: 07/13/21 History of Present Illness H&P Date: 06/29/21 The patient is a 56-year-old male with a PMH of coronary artery disease status post multiple stents, hypertension, severe COPD, systolic CHF, who presents to the emergency room for lower extremity edema and fever. Of note, the patient was recently admitted to the hospital from 06/19 to 06/26 for pneumonia requiring IV antibiotics. The patient had undergone bronchoscopy which was also consistent with pneumonia. The patient's hypoxia and shortness of breath had gradually improved following which the patient was discharged with a course of oral Augmentin. Patient reports that since the day following his discharge, he started having intermittent fevers controlled with Tylenol. He reports compliance with his Augmentin at home. He also reported noticing lower extremity edema predominantly involving the ankles. He denied any additional complaints. Reports gradual improvement in his shortness of breath and denied chest discomfort. Continues to use chronic 2 L nasal cannula oxygen at home. Denied abdominal pain, nausea, vomiting, urinary complaints, diarrhea or headache, neck pain, visual disturbances. Laboratory evaluation was remarkable for leukocytosis of 14.3, sodium 133, glucose 174, ALT 158, alk phos 143, troponin 0.017, proBNP 1520, and unremarkable UA with coronavirus PCR negative. Tmax 101.4F. Chest x-ray revealed improvement in aeration with EKG showing sinus tachycardia at 109 bpm. Patient was seen and examined at the bedside. Still complaining of exertional dyspnea. He is currently on 6 L nasal cannula Objective - Vital Signs Vital signs: Vital Signs Temp 97.8 F 07/13/21 11:08 Pulse 92 07/13/21 16:26 Resp 24 07/13/21 14:00 BP 136/87 07/13/21 11:08 Pulse Ox 92 L 07/13/21 16:20 Intake & Output 07/12/21 07/13/21 07/13/21 18:59 06:59 18:59 Intake Total 598 924 Output Total 1350 300 950 Balance -752 -300 -26 Intake: Oral 598 924 Output: Urine 1350 300 950 Other: Voiding Method Toilet Toilet Toilet Urinal Urinal # Voids 1 # Bowel Movements 1 1 - Exam General: non toxic, no distress, appears older than his stated age. Derm: warm, dry Head: atraumatic, normocephalic, symmetric Eyes: EOMI, no lid lag, anicteric sclera Mouth: no lip lesion, mucus membranes moist Cardiovascular: S1S2 reg, no murmur, positive posterior tibial pulse bilateral, Lungs: Diminished air entry without significant wheezing Abdominal: soft, nontender to palpation, no guarding, no appreciable organomegaly Ext: no gross muscle atrophy, no edema, no contractures Neuro: CN II-XI grossly intact, no focal neuro deficits Psych: Alert, oriented, appropriate affect - Labs CBC & Chem 7: 07/11/21 07:54 07/11/21 07:54 Labs: Abnormal Lab Results - Last 24 Hours (Table) 07/06/21 Range/Units 10:26 Histoplasma Ab Imm Diff Detected A (None Detected) Histoplasma Mycel Ab CF 1:128 H (<1:8) Histoplasma Yeast Ab CF 1:16 H (<1:8) Assessment and Plan Assessment: Acute on chronic hypoxic respiratory failure secondary to pneumonia and COPD exacerbation Pneumonia, failed outpatient treatment with sepsis -There is a positive histoplasma antibodies which could be essentially chronic per ID and pulmonary. Presentation is not typical of acute histoplasma pneumonia. -Note that the patient also underwent a right middle lobe transbronchial biopsies. The pathologic findings were consistent with bronchial mucosal inf lammation and peribronchial alveolar tissue with organizing pneumonia and respiratory bronchiolitis. He was negative for malignancy. It was negative for any fungal elements. . Bronchioloalveolar lavage showed no evidence of any fungal elements. -Diflucan discontinued by infectious disease. Resume IV Zosyn and doxycycline per infectious disease - Status post bronchoscopy with bronchoalveolar lavage July 07 - Beta D glucan, < 31 (negative) - Negative HIV -QuantiFERON Gold TB test came back negative - MRSA negative - Pulm and ID recs -Resume Bronchodilators - pulm hygeine - Blood cultures negative to date. - Repeat Sputum Cx and AFB stain on 07/04 -Sputum grew Jacey Albicans--: I - Cryptococcal antigen--pending - Normal IgG1, IgG3 and IgG4 but IgG2 level is low - IgE level elevated Acute COPD exacerbation -Improving with IV steroids-switchED to by mouth prednisone per pulmonary -Bronchodilator treatment -Wean off oxygen as tolerated Acute exacerbation of systolic CHF with EF 30-35 % ASCAD -Oral Lasix -ASA, lipitor, BB -Entresto on hold due to recent hypotension on last hospital stay. 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 Bullous emphysema/COPD, on home oxygen since the recent hospitalization on 4 L Thrombocytosis - chronic at baseline - follow CBC Ongoing tobacco abuse -Smoking cessation was advised -nicotine replacement if needed Medical noncompliance Underweight with BMI 18.2 - dietitian recsheri History of laparoscopic bilateral inguinal hernia repair History of prescription narcotic abuse currently on Suboxone History of anxiety DVT prophylaxis: heparin Anticipated discharge: pending clinical course Anticipated discharge place: home
[2021-07-13] MEDS: carvediloL 3.125 MG TAB PO SCH (21:04)
[2021-07-13] MEDS: ATORVASTATIN 40 MG TAB PO SCH (21:04)
--- NOTE | 2021-07-13 22:46 | P.PN ---
Subjective Progress Note Date: 07/12/21 Principal diagnosis: Pneumonia Patient is a 56-year-old male who was recently admitted to the hospital and was diagnosed with pneumonia status post bronchoscopy and those culture were negative patient was subsequently discharged home on oral antibiotics and currently admitted to the hospital within 72 hours with a fever. Patient repeat CT did shows progression of his pneumonia and the patient is status post bronchoscopy biopsy and lavage completed 07/07/2021 On today's evaluation that is 07/12/2021, the patient remains to be afebrile, the patient denies chest pain, the patient is breathing comfortably on nasal cannula oxygen, the patient cough and decrease in intensity and mostly dry in nature, the patient denies nausea no vomiting no abdominal pain and no diarrhea Objective - Vital Signs Vital signs: Vital Signs Temp 97.6 F 07/12/21 08:45 Pulse 90 07/12/21 13:27 Resp 18 07/12/21 13:27 BP 121/77 07/12/21 08:45 Pulse Ox 88 L 07/12/21 08:45 Intake & Output 07/11/21 07/12/21 07/12/21 17:59 06:59 18:59 Intake Total 118 Output Total 450 Balance -332 Intake: Oral 118 Output: Urine 450 Other: Voiding Method Toilet - Exam GENERAL DESCRIPTION: Middle-aged male lying in bed in no distress RESPIRATORY SYSTEM: Unlabored breathing , decreased breath sounds at bases HEART: S1 S2 regular rate and rhythm , ABDOMEN: Soft , no tenderness EXTREMITIES: No edema feet - Labs CBC & Chem 7: 07/11/21 07:54 07/11/21 07:54 Labs: Microbiology - Last 24 Hours (Table) 07/07/21 12:43 Gram Stain - Final Bronchial Washings - Right Bronchial Washings Culture - Final Assessment and Plan (1) Febrile illness, acute Current Visit: Yes Status: Acute Code(s): R50.9 - FEVER, UNSPECIFIED SNOMED Code(s): 898671033 (2) Pneumonia Current Visit: Yes Status: Acute Code(s): J18.9 - PNEUMONIA, UNSPECIFIED ORGANISM SNOMED Code(s): 639232244 Plan: 1patient presented to hospital with a fever increasing shortness of breath and this patient was recently diagnosed with the right-sided pneumonia status post bronchoscopy and was culture showed Jacey likely colonizer, failing outpatient oral antibiotic therapy. 2sputum cultures as well as urine for Legionella antigen has been negative [address] of the chest did show progressive pulmonary consolidation, likely representing progressive pneumonia, patient is status post bronchoscopy biopsy and lavage and cultures are so far negative 4-patient currently being treated with Zosyn and doxycycline, which will be discontinued in view of overall resolution of fever Time with Patient: Less than 30
--- NOTE | 2021-07-13 22:49 | P.PN ---
Subjective Progress Note Date: 07/13/21 Principal diagnosis: Pneumonia Patient is a 56-year-old male who was recently admitted to the hospital and was diagnosed with pneumonia status post bronchoscopy and those culture were negative patient was subsequently discharged home on oral antibiotics and currently admitted to the hospital within 72 hours with a fever. Patient repeat CT did shows progression of his pneumonia and the patient is status post bronchoscopy biopsy and lavage completed 07/07/2021 On today's evaluation that is 07/13/2021, the patient denies having any fever or chills, patient had been complaining of being anxious and the shortness of breath on minimal exertion the patient denies having any chest pain denies any worsening, depression abdominal pain and no diarrhea Objective - Vital Signs Vital signs: Vital Signs Temp 97.8 F 07/13/21 11:08 Pulse 92 07/13/21 16:26 Resp 24 07/13/21 14:00 BP 136/87 07/13/21 11:08 Pulse Ox 92 L 07/13/21 16:20 Intake & Output 07/12/21 07/13/21 07/13/21 18:59 06:59 18:59 Intake Total 598 924 Output Total 1350 300 950 Balance -752 -300 -26 Intake: Oral 598 924 Output: Urine 1350 300 950 Other: Voiding Method Toilet Toilet Toilet Urinal Urinal # Voids 1 # Bowel Movements 1 1 - Exam GENERAL DESCRIPTION: Middle-aged male lying in bed in no distress RESPIRATORY SYSTEM: Unlabored breathing , decreased breath sounds at bases HEART: S1 S2 regular rate and rhythm , ABDOMEN: Soft , no tenderness EXTREMITIES: No edema feet - Labs CBC & Chem 7: 07/11/21 07:54 07/11/21 07:54 Labs: Abnormal Lab Results - Last 24 Hours (Table) 07/06/21 Range/Units 10:26 Histoplasma Ab Imm Diff Detected A (None Detected) Histoplasma Mycel Ab CF 1:128 H (<1:8) Histoplasma Yeast Ab CF 1:16 H (<1:8) Assessment and Plan (1) Febrile illness, acute Current Visit: Yes Status: Acute Code(s): R50.9 - FEVER, UNSPECIFIED SNOMED Code(s): 382198803 (2) Pneumonia Current Visit: Yes Status: Acute Code(s): J18.9 - PNEUMONIA, UNSPECIFIED ORGANISM SNOMED Code(s): 855837259 Plan: 1patient presented to hospital with a fever increasing shortness of breath and this patient was recently diagnosed with the right-sided pneumonia status post bronchoscopy and was culture showed Jacey likely colonizer, failing outpatient oral antibiotic therapy. 2sputum cultures as well as urine for Legionella antigen has been negative [address] of the chest did show progressive pulmonary consolidation, likely representing progressive pneumonia, patient is status post bronchoscopy biopsy and lavage and cultures are so far negative 4-patient currently being treated with Zosyn and doxycycline, which will be discontinued in view of overall resolution of fever 5- patient did have positive histoplasma antibodies however the transbronchial biopsy did not show any fungal element and the fungal cultures done in June remains to be negative as well we did request for histoplasma blood and urine antigen, for now we'll hold on amphotericin B which will be recommended antifungal for this extensive pneumonia if proved to be histoplasmosis, this was discussed with the medical team Time with Patient: Less than 30
[2021-07-14] MEDS: ACETAMINOPHEN TAB 325 MG TAB PO SCH ×5 (00:18→23:46)
[2021-07-14] MEDS: PIPERACILLIN-TAZOBACTAM 3.375 GM in SODIUM CHLORIDE 0.9% 100 ML IVPB SCH ×4 (00:19→23:46)
[2021-07-14] MEDS: HEPARIN SODIUM,PORCINE/PF 5,000 UNIT/0.5 ML SYRINGE SQ SCH ×4 (00:20→23:15)
[2021-07-14] MEDS: ALPRAZolam 0.5 MG TAB PO PRN ×2 (06:41→23:46)
[2021-07-14] MEDS: SYMBICORT 80-4.5 MCG INHALER INHALATION SCH ×2 (06:56→19:26)
[2021-07-14] MEDS: IPRATROPIUM 0.5 MG/2.5 ML NEBU INHALATION SCH ×4 (06:56→19:29)
[2021-07-14] MEDS: NON FORMULARY DRUG (Buprenorphine Hcl/Naloxone Hcl [Suboxone 8 Mg-2 Mg Sl Film] 1 EACH Fil SUBLINGUAL SCH (07:36)
[2021-07-14] MEDS: DOCUSATE 100 MG CAP PO SCH ×2 (07:41→20:44)
[2021-07-14] MEDS: polyethylene glycoL 3350 17 GM POWD.PACK PO SCH (07:41)
--- NOTE | 2021-07-14 07:43 | XR ---
EXAMINATION TYPE: XR chest 1V portable DATE OF EXAM: 07/14/2021 Comparison: 07/13/2021, 04/28/2017 Clinical History: 56-year-old male increase in shortness of breath Findings: Left anterior chest wall AICD generator with right ventricular lead. Right PICC tip at the cavoatrial junction. Heart upper limits of normal in size. Extensive pleural parenchymal scarring and irregular focal opacities in the upper lobes, right greater than left. Reticular changes in the lower lungs bu t with worsening patchy opacity at the right lower lung. No pleural effusion. Impression: 1. Redemonstrated extensive pleural parenchymal changes in the upper lobes. These findings are new co mpared to 2017. Correlate to exclude any active atypical fungal/mycobacterial infection. Extensive po stinfectious scarring or sequela of sarcoidosis or pneumoconiosis or other chronic fibrotic process a re in the differential as well. Surveillance will be needed to exclude any underlying mass. 2. Worsening infiltrate at the right base suggests pneumonia.
[2021-07-14] MEDS: predniSONE 10 MG TAB PO SCH (07:46)
[2021-07-14] MEDS: ASPIRIN 81 MG PO SCH (07:46)
[2021-07-14] MEDS: NICOTINE 21MG/24HR PATCH TRANSDERM SCH (07:46)
[2021-07-14] MEDS: DOXYCYCLINE 100 MG CAP PO SCH (07:46)
[2021-07-14] MEDS: FUROSEMIDE 40 MG TAB PO SCH (07:46)
[2021-07-14] MEDS ORDERED: predniSONE 20 MG TAB PO SCH (09:00)
[2021-07-14] MEDS: ITRACONAZOLE 100 MG CAP PO SCH ×3 (12:45→20:45)
[2021-07-14] MEDS: IPRATROPIUM-ALBUTEROL 3 ML NEB INHALATION PRN ×2 (15:26→19:26)
--- NOTE | 2021-07-14 15:57 | P.PN ---
Subjective Progress Note Date: 07/14/21 56-year-old male patient with known history of COPD, chronic smoker, CAD, paroxysmal A. fib status post pacemaker insertion, chronic CHF with systolic dysfunction, ischemic cardiomyopathy with EF of 30-35% with AICD placement, anxiety who was recently hospitalized for acute exacerbation of COPD, compli cated with possible pneumonia. Patient's chest x-ray showed bilateral airspace disease, underlying emphysema. CT angiogram of the chest showed no evidence of pulmonary embolism, extensive bullous pulmonary emphysema, with extensive honeycombing infiltrate in the mid and upper lung hendricks. On 07/13/2021, seeing the patient for a follow-up. Noted the patient has advanced COPD with extensive bilateral consolidation in the upper lobes bilaterally. The patient's workup has been negative in terms of identifying any particular infectious agent. 2 bronchoscopies yielded no microbial growth. There is a positive histoplasma antibodies which could be essentially chronic. Presentation is not typical of acute histoplasma pneumonia. Note that the patient also underwent a right middle lobe transbronchial biopsies. The pathologic findings were consistent with bronchial mucosal inflammation and peribronchial alveolar tissue with organizing pneumonia and respiratory bronchiolitis. He was negative for malignancy. It was negative for any fungal elements. . Also, the bronchioloalveolar lavage showed no evidence of any fungal elements. The patient remains on IV Zosyn and doxycycline. The patient has a white cell count of 13.4 with hemoglobin 8.9. The platelet count is at 756. Rest of the electrodes are all within normal limits. His shortness of breath with limited amount of activity and sometimes even at rest. Nevertheless, there is no interval worsening his oxygenation and patient remains on 2 liters of oxygen by nasal cannula. The patient is a bit anxious. He has developed some increased edema in lower extremities bilaterally. In fact it is on the case. I took the patient off the IV Solu Medrol as the patient does not show any signs of bronchospasm wheezing and the patient is currently on 10 mg of prednisone. He is on bronchodilators. Is a bit anxious. He remains on oxygen at 2 L per minute nasal cannula. His current antibiotic coverage included IV Zosyn and doxycycline. 07/14/2021, the patient is feeling well. The patient is currently on 10 L of oxygen nasal cannula. Nevertheless, despite the increased oxygen requirements, the patient is feeling better and he feels less short of breath and less anxious compared to yesterday. The patient is afebrile. The patient is hemodynamically stable. A repeat chest x-ray was done and the patient hasn't demonstrated extensive pleural parenchymal disease in the upper lobes bilaterally. There is some infiltration of the right lung base. Nevertheless, the upper lobe infiltration is more dense and smaller compared to the earlier films. Discussed the case with infectious disease. The patient was started on itraconazole. The patient was taken off the IV Solu Medrol and the patient is currently on 10 mg of prednisone a daily basis. The patient remains on IV Zosyn. Histoplasma urine antigen was sent. The samples from the lung biopsy are being also look for any fungal elements. The patient remains on bronchodilators. The patient is on Lasix 40 mg by mouth daily. He is quite debilitated at this point in time. Family is at the bedside. Objective - Vital Signs Vital signs: Vital Signs Temp 98.0 F 07/14/21 15:38 Pulse 98 07/14/21 15:40 Resp 19 07/14/21 15:38 BP 115/79 07/14/21 15:38 Pulse Ox 90 L 07/14/21 15:38 Intake & Output 07/13/21 07/14/21 07/14/21 18:59 06:59 18:59 Intake Total 1164 460 Output Total 911 775 6977 Balance 214 -450 -1340 Intake: Intake, IV Titration 100 Amount Piperacillin-Tazobactam 3 100 .375 gm In Sodium Chloride 0.9% 100 ml @ 25 mls/hr IVPB Q8HR [facility] Rx# :[id number] Oral 1164 360 Output: Urine 752 419 0689 Other: Voiding Method Toilet Toilet Toilet Urinal Urinal Urinal # Voids 1 2 # Bowel Movements 1 1 - Exam GENERAL EXAM: Alert, very pleasant, 56-year-old male patient, on 10L of oxygen pulse ox of 96%, comfortable in no apparent distress. HEAD: Normocephalic/atraumatic. EYES: Normal reaction of pupils, equal size. Conjunctiva pink, sclera white. NOSE: Clear with pink turbinates. THROAT: No erythema or exudates. NECK: No masses, no JVD, no thyroid enlargement, no adenopathy. CHEST: No chest wall deformity. Symmetrical expansion. LUNGS: Equal air entry with few scattered rhonchi. CVS: Regular rate and rhythm, normal S1 and S2, no gallops, no murmurs, no rubs ABDOMEN: Soft, nontender. No hepatosplenomegaly, normal bowel sounds, no guarding or rigidity. EXTREMITIES: No clubbing, no edema, no cyanosis, 2+ pulses and upper and lower extremities. MUSCULOSKELETAL: Muscle strength and tone normal. SPINE: No scoliosis or deformity SKIN: No rashes CENTRAL NERVOUS SYSTEM: No focal deficits, tone is normal in all 4 extremities. PSYCHIATRIC: Alert and oriented -3. Appropriate affect. Intact judgment and insight. - Labs CBC & Chem 7: 07/11/21 07:54 07/11/21 07:54 Assessment and Plan Assessment: I 1 advanced COPD with bilateral pneumonia with upper lobe predominance. Bronchoscopy 2 has been negative for microbial growth. All of the microbial evaluation including bronchial lavage and transbronchial biopsy showed no evidence of any fungal growth within the lungs. Routine microbial and vitamin masses is been negative., COVID 19 19 testing is been negative. The patient has histoplasma antibodies, this was identified by complement-fixation. Nevertheless, the character presentation is atypical and this could be related to an old histoplasma exposure. Fungitell has been negative, Aspergillus antibodies have been negative. 2 acute hypoxic respiratory failure secondary to above currently on 10 L O2 nasal cannula 3 Recent hospitalization for acute exacerbation of COPD, and bilateral pneumonia, discharged home on 06/25/2021 to complete 2 week course of Augmentin 4 Bullous emphysema/COPD, on home oxygen 5 Increased swelling in bilateral lower extremities, possibly related to acute exacerbation of systolic CHF 6 Prior history of myocardial infarction 7 History of paroxysmal A. fib status post AICD and pacemaker insertion 8 CAD with prior stenting 9 History of CHF with systolic dysfunction 10 Ischemic cardiomyopathy with EF of 30-35% 11 History of laparoscopic bilateral inguinal hernia repair 12 History of prescription narcotic abuse currently on Suboxone 13 History of anxiety Plan: The patient is afebrile Check histoplasma urine antigen Continue same antibiotic coverage Itraconazole was admitted to the regimen Continue prednisone 10 mg by mouth daily Continue oral Lasix Wean FiO2 to maintain a saturation above 90% Repeated chest x-ray with next 2448 hrs. A second look and the pathologic samples from the lung biopsy We'll continue to follow Long-term prognosis is poor and outcome is obviously poor baseline above- mentioned comorbidities.
--- NOTE | 2021-07-14 16:30 | P.PN ---
Subjective Progress Note Date: 07/14/21 Principal diagnosis: sob 56-year-old male with a PMH of coronary artery disease status post multiple stents, hypertension, severe COPD, systolic CHF, who presents to the emergency room for lower extremity edema and fever. Of note, the patient was recently admitted to the hospital from 06/19 to 06/26 for pneumonia requiring IV antibiotics. The patient had undergone bronchoscopy which was also consistent with pneumonia. The patient's hypoxia and shortness of breath had gradually improved following which the patient was discharged with a course of oral Augmentin. Patient reports that since the day following his discharge, he started having intermittent fevers controlled with Tylenol. He reports compliance with his Augmentin at home. He also reported noticing lower ex tremity edema predominantly involving the ankles. He denied any additional complaints. Reports gradual improvement in his shortness of breath and denied chest discomfort. Continues to use chronic 2 L nasal cannula oxygen at home. Denied abdominal pain, nausea, vomiting, urinary complaints, diarrhea or headache, neck pain, visual disturbances. Laboratory evaluation was remarkable for leukocytosis of 14.3, sodium 133, glucose 174, ALT 158, alk phos 143, troponin 0.017, proBNP 1520, and unremarkable UA with coronavirus PCR negative. Tmax 101.4F. Chest x-ray revealed improvement in aeration with EKG showing sinus tachycardia at 109 bpm. 07/14: Patient was not hypoxic this morning. Oxygen demands went up to 15 L. He is currently satting in the early 90s. He told me that the second bronch took a toll on him. Currently continues to be short of breath. Denies pain. Objective - Vital Signs Vital signs: Vital Signs Temp 98.0 F 07/14/21 15:38 Pulse 98 07/14/21 15:40 Resp 19 07/14/21 15:38 BP 115/79 07/14/21 15:38 Pulse Ox 90 L 07/14/21 15:38 Intake & Output 07/13/21 07/14/21 07/14/21 18:59 06:59 18:59 Intake Total 1164 460 Output Total 756 292 1682 Balance 214 450 1340 Intake: Intake, IV Titration 100 Amount Piperacillin-Tazobactam 3 100 .375 gm In Sodium Chloride 0.9% 100 ml @ 25 mls/hr IVPB Q8HR [facility] Rx# :[id number] Oral 1164 360 Output: Urine 554 024 4026 Other: Voiding Method Toilet Toilet Toilet Urinal Urinal Urinal # Voids 1 2 # Bowel Movements 1 1 - Exam General: non toxic, no distress, appears older than his stated age. Derm: warm, dry Head: atraumatic, normocephalic, symmetric Eyes: EOMI, no lid lag, anicteric sclera Mouth: no lip lesion, mucus membranes moist Cardiovascular: S1S2 reg, no murmur, positive posterior tibial pulse bilateral, Lungs: Diminished air entry without significant wheezing Abdominal: soft, nontender to palpation, no guarding, no appreciable organomegaly Ext: no gross muscle atrophy, no edema, no contractures Neuro: CN II-XI grossly intact, no focal neuro deficits Psych: Alert, oriented, appropriate affect - Labs CBC & Chem 7: 07/11/21 07:54 07/11/21 07:54 Assessment and Plan Plan: Acute on chronic hypoxic respiratory failure secondary to pneumonia and COPD exacerbation Pneumonia, failed outpatient treatment with sepsis -There is a positive histoplasma antibodies which could be essentially chronic per ID and pulmonary. Presentation is not typical of acute histoplasma pneumonia. -Note that the patient also underwent a right middle lobe transbronchial biopsies. The pathologic findings were consistent with bronchial mucosal inflammation and peribronchial alveolar tissue with organizing pneumonia and respiratory bronchiolitis. He was negative for malignancy. It was negative for any fungal elements. . Bronchioloalveolar lavage showed no evidence of any fungal elements. -Histoplama ag urine and blood pending. -Diflucan discontinued by infectious disease. Resume IV Zosyn, got doxycycline which is now d/babatunde - Status post bronchoscopy with bronchoalveolar lavage July 07 - Beta D glucan, < 31 (negative) - Negative HIV -QuantiFERON Gold TB test came back negative - MRSA negative - Pulm and ID recs -Resume Bronchodilators - pulm hygeine - Blood cultures negative to date. - Repeat Sputum Cx and AFB stain on 07/04 -Sputum grew Jacey Albicans--: I - Cryptococcal antigen--pending - Normal IgG1, IgG3 and IgG4 but IgG2 level is low - IgE level elevated Acute COPD exacerbation -Was on IV steroids, now oral per pulm -Bronchodilator treatment -Wean off oxygen as tolerated Acute exacerbation of systolic CHF with EF 30-35 % ASCAD -Oral Lasix -ASA, lipitor, BB -Entresto on hold due to recent hypotension on last hospital stay. 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 Bullous emphysema/COPD, on home oxygen since the recent hospitalization on 4 L Thrombocytosis - chronic at baseline - follow CBC Ongoing tobacco abuse -Smoking cessation was advised -nicotine replacement if needed Medical noncompliance Underweight with BMI 18.2 - dietitian recsheri History of laparoscopic bilateral inguinal hernia repair History of prescription narcotic abuse currently on Suboxone History of anxiety DVT prophylaxis: heparin Anticipated discharge: pending clinical course Anticipated discharge place: home
[2021-07-14] MEDS: carvediloL 3.125 MG TAB PO SCH (20:46)
[2021-07-15] MEDS: ACETAMINOPHEN TAB 325 MG TAB PO SCH ×5 (05:41→23:36)
[2021-07-15] MEDS: SYMBICORT 80-4.5 MCG INHALER INHALATION SCH ×2 (07:42→20:24)
[2021-07-15] MEDS: IPRATROPIUM 0.5 MG/2.5 ML NEBU INHALATION SCH ×4 (07:42→20:24)
[2021-07-15] MEDS: IPRATROPIUM-ALBUTEROL 3 ML NEB INHALATION PRN ×3 (07:42→15:24)
[2021-07-15] MEDS: DOCUSATE 100 MG CAP PO SCH ×2 (08:35→20:57)
[2021-07-15] MEDS: polyethylene glycoL 3350 17 GM POWD.PACK PO SCH (08:35)
[2021-07-15] MEDS: HEPARIN SODIUM,PORCINE/PF 5,000 UNIT/0.5 ML SYRINGE SQ SCH ×3 (08:44→23:37)
[2021-07-15] MEDS: predniSONE 10 MG TAB PO SCH (08:44)
[2021-07-15] MEDS: NICOTINE 21MG/24HR PATCH TRANSDERM SCH (08:44)
[2021-07-15] MEDS: FUROSEMIDE 40 MG TAB PO SCH (08:44)
[2021-07-15] MEDS: ASPIRIN 81 MG PO SCH (08:44)
[2021-07-15] MEDS: ITRACONAZOLE 100 MG CAP PO SCH ×3 (08:44→20:57)
[2021-07-15] MEDS: PIPERACILLIN-TAZOBACTAM 3.375 GM in SODIUM CHLORIDE 0.9% 100 ML IVPB SCH ×3 (08:45→23:37)
[2021-07-15 11:01] LABS: Anisocytosis Slight; Basophils % (A) 0 %; Eosinophils # (A) 0.7 k/uL (0-0.7); Eosinophils % (A) 5 %; HCT 38.5 % (39.0-53.0); HGB 11.8 gm/dL (13.0-17.5); Hypochromasia Marked; Lymphocytes % (A) 7 %; MCH 26.7 pg (25.0-35.0); MCHC 30.6 g/dL (31.0-37.0); Mean Platelet Volume 7.6; Monocytes # (A) 0.5 k/uL (0-1.0); Monocytes % (A) 3 %; Neutrophils # (A) 11.9 k/uL (1.3-7.7); Neutrophils % (A) 84 %; Platelet Count 717 k/uL (150-450); Poikilocytosis Slight; RBC 4.42 m/uL (4.30-5.90); RDW 17.7 % (11.5-15.5); WBC 14.3 k/uL (3.8-10.6)
[2021-07-15] MEDS: NON FORMULARY DRUG (Buprenorphine Hcl/Naloxone Hcl [Suboxone 8 Mg-2 Mg Sl Film] 1 EACH Fil SUBLINGUAL SCH (11:10)
[2021-07-15 11:24] LABS: ALT 86 U/L (4-49); AST 33 U/L (17-59); African American GFR (CKD) >90 (>60 ml/min/1.73 sqM); Albumin 2.8 g/dL (3.5-5.0); Alkaline Phosphatase 196 U/L (38-126); Anion Gap 9 mmol/L; Bilirubin, Delta 0.2 mg/dL (0.0-0.2); Bilirubin,Unconjugated 0.4 mg/dL (0.0-1.1); Blood Urea Nitrogen 20 mg/dL (9-20); Calcium 8.1 mg/dL (8.4-10.2); Carbon Dioxide 26 mmol/L (22-30); Chloride 99 mmol/L (98-107); Glucose 144 mg/dL (74-99); Non-African American GFR(CKD) >90 (>60 ml/min/1.73 sqM); Potassium 3.8 mmol/L (3.5-5.1); Sodium 134 mmol/L (137-145); Total Bilirubin 0.6 mg/dL (0.2-1.3); Total Protein 6.4 g/dL (6.3-8.2)
--- NOTE | 2021-07-15 13:10 | P.PN ---
Subjective Progress Note Date: 07/15/21 Principal diagnosis: sob 56-year-old male with a PMH of coronary artery disease status post multiple stents, hypertension, severe COPD, systolic CHF, who presents to the emergency room for lower extremity edema and fever. Of note, the patient was recently admitted to the hospital from 06/19 to 06/26 for pneumonia requiring IV antibiotics. The patient had undergone bronchoscopy which was also consistent with pneumonia. The patient's hypoxia and shortness of breath had gradually improved following which the patient was discharged with a course of oral Augmentin. Patient reports that since the day following his discharge, he started having intermittent fevers controlled with Tylenol. He reports compliance with his Augmentin at home. He also reported noticing lower ex tremity edema predominantly involving the ankles. He denied any additional complaints. Reports gradual improvement in his shortness of breath and denied chest discomfort. Continues to use chronic 2 L nasal cannula oxygen at home. Denied abdominal pain, nausea, vomiting, urinary complaints, diarrhea or headache, neck pain, visual disturbances. Laboratory evaluation was remarkable for leukocytosis of 14.3, sodium 133, glucose 174, ALT 158, alk phos 143, troponin 0.017, proBNP 1520, and unremarkable UA with coronavirus PCR negative. Tmax 101.4F. Chest x-ray revealed improvement in aeration with EKG showing sinus tachycardia at 109 bpm. 07/14: Patient was not hypoxic this morning. Oxygen demands went up to 15 L. He is currently satting in the early 90s. He told me that the second bronch took a toll on him. Currently continues to be short of breath. Denies pain. 07/15 Patient feeling better today, his O2 requirements are down to 10L, he was on 15L yesterday. No fevers or chills. Still with cough and sob. Objective - Vital Signs Vital signs: Vital Signs Temp 98.4 F 07/15/21 08:00 Pulse 94 07/15/21 12:16 Resp 18 07/15/21 12:16 BP 114/76 07/15/21 11:52 Pulse Ox 91 L 07/15/21 11:52 Intake & Output 07/14/21 07/15/21 07/15/21 18:59 06:59 18:59 Intake Total 460 580 240 Output Total 1800 1200 800 Balance -2360 -505 -570 Weight 50.8 kg Intake: Intake, IV Titration 100 100 Amount Piperacillin-Tazobactam 3 100 100 .375 gm In Sodium Chloride 0.9% 100 ml @ 25 mls/hr IVPB Q8HR [facility] Rx# :[id number] Oral 360 480 240 Output: Urine 1800 1200 800 Other: Voiding Method Toilet Urinal # Voids 2 1 # Bowel Movements 1 1 - Exam General: non toxic, no distress, appears older than his stated age. Derm: warm, dry Head: atraumatic, normocephalic, symmetric Eyes: EOMI, no lid lag, anicteric sclera Mouth: no lip lesion, mucus membranes moist Cardiovascular: S1S2 reg, no murmur, positive posterior tibial pulse bilateral, Lungs: Diminished air entry without significant wheezing Abdominal: soft, nontender to palpation, no guarding, no appreciable organome duran Ext: no gross muscle atrophy, no edema, no contractures Neuro: CN II-XI grossly intact, no focal neuro deficits Psych: Alert, oriented, appropriate affect - Labs CBC & Chem 7: 07/15/21 10:41 07/15/21 10:41 Labs: Abnormal Lab Results - Last 24 Hours (Table) 07/15/21 07/15/21 Range/Units 10:41 10:41 WBC 14.3 H (3.8-10.6) k/uL Hgb 11.8 L (13.0-17.5) gm/dL Hct 38.5 L (39.0-53.0) % MCHC 30.6 L (31.0-37.0) g/dL RDW 17.7 H (11.5-15.5) % Plt Count 717 H (150-450) k/uL Neutrophils # 11.9 H (1.3-7.7) k/uL Sodium 134 L (137-145) mmol/L Glucose 144 H (74-99) mg/dL Calcium 8.1 L (8.4-10.2) mg/dL ALT 86 H (4-49) U/L Alkaline Phosphatase 196 H (38-126) U/L Albumin 2.8 L (3.5-5.0) g/dL Assessment and Plan Plan: Acute on chronic hypoxic respiratory failure secondary to pneumonia and COPD exacerbation Pneumonia, failed outpatient treatment with sepsis -There is a positive histoplasma antibodies which could be essentially chronic per ID and pulmonary. -Note that the patient also underwent a right middle lobe transbronchial biopsies. The pathologic findings were consistent with bronchial mucosal inflammation and peribronchial alveolar tissue with organizing pneumonia and respiratory bronchiolitis. He was negative for malignancy. It was negative for any fungal elements. . Bronchioloalveolar lavage showed no evidence of any fungal elements. -Histoplama ag urine and blood pending. -Diflucan discontinued by infectious disease. Resume IV Zosyn, got doxycycline which is now d/babatunde. Itraconazole started on 07/14 for possible histoplasmosis - Status post bronchoscopy with bronchoalveolar lavage July 07 - Beta D glucan, < 31 (negative) - Negative HIV -QuantiFERON Gold TB test came back negative - MRSA negative - Pulm and ID recs -Resume Bronchodilators - pulm hygiene - Blood cultures negative to date. - Repeat Sputum Cx and AFB stain on 07/04 -Sputum grew Jacey Albicans - Cryptococcal antigen--negative - IgE level elevated Acute COPD exacerbation -Was on IV steroids, now oral per pulm -Bronchodilator treatment -Wean off oxygen as tolerated Acute exacerbation of systolic CHF with EF 30-35 % ASCAD -Oral Lasix -ASA, lipitor, BB -Entresto on hold due to recent hypotension on last hospital stay. 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 Bullous emphysema/COPD, on home oxygen since the recent hospitalization on 4 L Thrombocytosis - chronic at baseline - follow CBC Ongoing tobacco abuse -Smoking cessation was advised -nicotine replacement if needed Medical noncompliance Underweight with BMI 18.2 - dietitian recs History of laparoscopic bilateral inguinal hernia repair History of prescription narcotic abuse currently on Suboxone History of anxiety DVT prophylaxis: heparin Anticipated discharge: pending clinical course Anticipated discharge place: home
--- NOTE | 2021-07-15 14:09 | P.PN ---
Subjective Progress Note Date: 07/14/21 Principal diagnosis: Pneumonia Patient is a 56-year-old male who was recently admitted to the hospital and was diagnosed with pneumonia status post bronchoscopy and those culture were negative patient was subsequently discharged home on oral antibiotics and currently admitted to the hospital within 72 hours with a fever. Patient repeat CT did shows progression of his pneumonia and the patient is status post bronchoscopy biopsy and lavage completed 07/07/2021 On today's evaluation that is 07/14/2021, the patient is afebrile the patient however did have worsening of his respiratory status and is requiring 15 L nasal cannula, the patient denies having any chest pain no worsening, respiratory production no abdominal pain and no diarrhea Objective - Vital Signs Vital signs: Vital Signs Temp 97.9 F 07/14/21 11:28 Pulse 104 H 07/14/21 11:28 Resp 22 07/14/21 11:28 BP 110/78 07/14/21 11:28 Pulse Ox 87 L 07/14/21 11:28 Intake & Output 07/13/21 07/14/21 07/14/21 18:59 06:59 18:59 Intake Total 1164 220 Output Total 950 450 900 Balance 015 -648 -489 Intake: Intake, IV Titration 100 Amount Piperacillin-Tazobactam 3 100 .375 gm In Sodium Chloride 0.9% 100 ml @ 25 mls/hr IVPB Q8HR [facility] Rx# :[id number] Oral 1164 120 Output: Urine 950 450 900 Other: Voiding Method Toilet Toilet Toilet Urinal Urinal Urinal # Voids 1 2 # Bowel Movements 1 1 - Exam GENERAL DESCRIPTION: Middle-aged male lying in bed in no distress RESPIRATORY SYSTEM: Unlabored breathing , decreased breath sounds at bases HEART: S1 S2 regular rate and rhythm , ABDOMEN: Soft , no tenderness EXTREMITIES: No edema feet - Labs CBC & Chem 7: 07/15/21 10:41 07/15/21 10:41 Assessment and Plan (1) Febrile illness, acute Current Visit: Yes Status: Acute Code(s): R50.9 - FEVER, UNSPECIFIED SNOMED Code(s): 407303521 (2) Pneumonia Current Visit: Yes Status: Acute Code(s): J18.9 - PNEUMONIA, UNSPECIFIED ORGANISM SNOMED Code(s): 960253293 Plan: 1patient presented to hospital with a fever increasing shortness of breath and this patient was recently diagnosed with the right-sided pneumonia status post bronchoscopy and was culture showed Jacey likely colonizer, failing outpatient oral antibiotic therapy. 2sputum cultures as well as urine for Legionella antigen has been negative [address] of the chest did show progressive pulmonary consolidation, likely representing progressive pneumonia, patient is status post bronchoscopy biopsy and lavage and cultures are so far negative 4-patient is currently covered with the Zosyn and that'll be continued we'll discontinue the doxycycline, and add itraconazole while waiting for the histo plasma urine and blood antigens to be finalize, discuss with the pulmonary team on the floor and also discuss with the patient and the family Time with Patient: Less than 30
--- NOTE | 2021-07-15 14:10 | P.PN ---
Subjective Progress Note Date: 07/15/21 Principal diagnosis: Pneumonia Patient is a 56-year-old male who was recently admitted to the hospital and was diagnosed with pneumonia status post bronchoscopy and those culture were negative patient was subsequently discharged home on oral antibiotics and currently admitted to the hospital within 72 hours with a fever. Patient repeat CT did shows progression of his pneumonia and the patient is status post bronchoscopy biopsy and lavage completed 07/07/2021 On today's evaluation that is 07/15/2021, the patient remains to be afebrile the patient is breathing more comfortably today and is down to 10 L nasal cannula oxygen, the patient denies having any chest pain no worsening, respiratory production no abdominal pain and no diarrhea Objective - Vital Signs Vital signs: Vital Signs Temp 98.4 F 07/15/21 08:00 Pulse 94 07/15/21 12:16 Resp 18 07/15/21 12:16 BP 114/76 07/15/21 11:52 Pulse Ox 91 L 07/15/21 11:52 Intake & Output 07/14/21 07/15/21 07/15/21 18:59 06:59 18:59 Intake Total 460 580 240 Output Total 1800 1200 800 Balance -9296 -950 -560 Weight 50.8 kg Intake: Intake, IV Titration 100 100 Amount Piperacillin-Tazobactam 3 100 100 .375 gm In Sodium Chloride 0.9% 100 ml @ 25 mls/hr IVPB Q8HR [facility] Rx# :[id number] Oral 360 480 240 Output: Urine 1800 1200 800 Other: Voiding Method Toilet Urinal # Voids 2 1 # Bowel Movements 1 1 - Exam GENERAL DESCRIPTION: Middle-aged male lying in bed in no distress RESPIRATORY SYSTEM: Unlabored breathing , decreased breath sounds at bases HEART: S1 S2 regular rate and rhythm , ABDOMEN: Soft , no tenderness EXTREMITIES: No edema feet - Labs CBC & Chem 7: 07/15/21 10:41 07/15/21 10:41 Labs: Abnormal Lab Results - Last 24 Hours (Table) 07/15/21 07/15/21 Range/Units 10:41 10:41 WBC 14.3 H (3.8-10.6) k/uL Hgb 11.8 L (13.0-17.5) gm/dL Hct 38.5 L (39.0-53.0) % MCHC 30.6 L (31.0-37.0) g/dL RDW 17.7 H (11.5-15.5) % Plt Count 717 H (150-450) k/uL Neutrophils # 11.9 H (1.3-7.7) k/uL Sodium 134 L (137-145) mmol/L Glucose 144 H (74-99) mg/dL Calcium 8.1 L (8.4-10.2) mg/dL ALT 86 H (4-49) U/L Alkaline Phosphatase 196 H (38-126) U/L Albumin 2.8 L (3.5-5.0) g/dL Assessment and Plan (1) Febrile illness, acute Current Visit: Yes Status: Acute Code(s): R50.9 - FEVER, UNSPECIFIED SNOMED Code(s): 772190942 (2) Pneumonia Current Visit: Yes Status: Acute Code(s): J18.9 - PNEUMONIA, UNSPECIFIED ORGANISM SNOMED Code(s): 059485516 Plan: 1patient presented to hospital with a fever increasing shortness of breath and this patient was recently diagnosed with the right-sided pneumonia status post bronchoscopy and was culture showed Jacey likely colonizer, failing outpatient oral antibiotic therapy. 2sputum cultures as well as urine for Legionella antigen has been negative [address] of the chest did show progressive pulmonary consolidation, likely representing progressive pneumonia, patient is status post bronchoscopy biopsy and lavage and cultures are so far negative 4-patient to continue with the Zosyn and itraconazole while waiting for the workup to be completed and condition stabilized, discussed with the medical team Time with Patient: Less than 30
[2021-07-15 15:00] VITALS: BMI 17.5
--- NOTE | 2021-07-15 15:18 | P.PN ---
Subjective Progress Note Date: 07/15/21 Principal diagnosis: swelling in BLE 56-year-old male patient with known history of COPD, chronic smoker, CAD, paroxysmal A. fib status post pacemaker insertion, chronic CHF with systolic dysfunction, ischemic cardiomyopathy with EF of 30-35% with AICD placement, anxiety who was recently hospitalized for acute exacerbation of COPD, complicated with possible pneumonia. Patient's chest x-ray showed bilateral airspace disease, underlying emphysema. CT angiogram of the chest showed no evidence of pulmonary embolism, extensive bullous pulmonary emphysema, with extensive honeycombing infiltrate in the mid and upper lung hendricks. Patient was treated with a combination of Rocephin and Zithromax initially, however he continued to have intermittent febrile episodes and subsequently he was switched to Zosyn by infectious disease service. Patient ended up having bronchoalveolar lavage on 06/24/[address] Ulloa, and BAL cultures showed no growth other than Jacey albicans. A separate BAL cultures were taken from right upper lobe and left lower lobe, cytology was negative for diagnostic malignancy. BAL cultures and viral cultures were negative. Patient was clinically improving, after being switched over to Zosyn patient's fever pattern had improved, and subsequently he was discharged home on oral course of Augmentin, and we recommended at least 2 week treatment with Augmentin, completion of prednisone taper and patient was sent home on home oxygen at 4 L. Patient states he was discharged on a Tuesday, by Tuesday night he started having increased swelling in his lower extremities, he could hardly get his socks on. At the same time he started developing a fever. He states he picked up his antibiotics and was taking them, he denied any worsening shortness of breath, no cough, no phlegm production, no hemoptysis no chest pain. No swelling or tenderness in the bilateral calves. He came into the emergency department for reevaluation on 06/29/2021. His temperature on admission was 101.4F. Chest x-ray showed findings similar to the prior exam with bilateral airspace disease, increased interstitium and underlying emphysema. Admission labs showed white blood cell count of 14.3, hemoglobin 12.4, sodium is 133, the rest of electrolytes were unremarkable, B1 is 16 creatinine 0.55, proBNP was 1520, troponin was 0.017, AST was 46, ALT was 158, alk phos was 146, urinalysis showed no evidence of infection, patient tested negative for COVID 19. Patient was started on vancomycin for antibiotic coverage, and Zosyn. He was started on oral Lasix a fter a single dose of IV Lasix 40 mg. Currently ankle edema is improving, he is diuresing, he continues on the bronchodilators. On 07/01/2021 patient seen in follow-up on medical surgical floor, he states he is breathing comfortably, he is currently on 2 L of oxygen his pulse ox is 91- 93%. His ankle swelling is significantly down, this morning patient was able to produce a sputum specimen which was sent for culture, follow-up chest x-ray today showing confluent densities in the upper lobes, and worsening pneumonia. Patient currently remains on Zosyn and vancomycin. No fever or chills over night. White blood cell count is 10.6, hemoglobin is 10.9, sodium is 131, the rest of the electrolytes and renal profile were unremarkable, LFTs are improved. No chest discomfort, no hemoptysis. Patient continues on nebulized bronchodilators, he is on oral dose of Lasix 40 mg daily. On 07/02/2021 patient seen in follow-up on medical surgical floor. He is still having intermittent fevers, T-max in last 24 hours 101.8F, patient was initially covered with a combination of Zosyn and vancomycin, ID service recommended discontinuing vancomycin and patient is currently on Zosyn and Levaquin has been added. Urine for Legionella antigen will be sent. Cultures reviewed, blood cultures have been negative, sputum Gram stain showing rare PMNs, few gram-positive cocci in clusters, few budding yeast. BAL cultures showed Jacey albicans. Today's labs reviewed, with blood cell count 12.3, hemoglobin is 9.3, sodium is 1:0, potassium is 4.3, B1 17 creatinine 0.57, CRP is 20.8, and pro-calcitonin level was 0.56. No worsening cough or hemoptysis, no chest pain, no altered mentation, hemodynamically has been stable, he has been tolerating ambulation in the room. Lower extremity swelling has significantly improved, patient remains on once daily dose of Lasix. 07/03/2021 patient seen in follow-up. He states there is no worsening dyspnea, occasional cough, no significant phlegm production, no chest discomfort, he remains on 2 L of oxygen the pulse ox of 90-93%, his fever pattern has improved in the last 24 hours, although the patient still has persistent low-grade fevers with a T-max of 100.6F. Room air pulse ox is 87%, and patient is very frustrated this morning as he was placed on the schedule for possible bronchoscopy with BAL without proper communication with him. Dr. Lundberg is at the bedside, and patient clinically has not worsened, he is currently on a combination of Levaquin and Zosyn, there has been no growth on BAL cultures from last admission, or blood or sputum culture, nasal swab for MRSA was negative. Follow blood cultures show no growth. Legionella urine antigen was negative. Yesterday CT of the chest was completed showing progressive chronic consolid ation, likely representing progressive pneumonia, enlarged lymph nodes likely reactive. On 07/06/2021 patient seen in follow-up. Patient continues to have intermittent fevers, at 101.8F at noon today. Currently remains on Unasyn and Diflucan, no new growth on cultures including BAL from 06/23/2021. Clinically he appears to be breathing fairly comfortably, no worsening cough or dyspnea, does have exertional dyspnea, no chest discomfort. Patient is on 2 L, his pulse ox of 92- 96%. His chest x-ray from yesterday showed persistent suprahilar and upper lobe airspace infiltrate with underlying cystic changes. Today's labs have been reviewed, with blood cell count is 15.6, hemoglobin is 9.4, platelet count is 592, sodium is 133, potassium is 4.3, chloride is 95, BUN is 16, creatinine 0.6, Legionella urine antigen was negative. On 07/10/2021 patient seen in follow-up. Patient is mildly dyspneic at rest, but states that his breathing is a little better, he is able to bring up some phlegm, steroids were added on yesterday, and patient continues on empiric antibiotics, so far he is BAL cultures have shown no growth other than Jacey. Patient remains on empiric antibiotics in the form of Zosyn, and doxycycline and Diflucan. Vancomycin has been discontinued. Has right middle lobe transbronchial biopsies showed bronchial mucosa and peribronchial alveolar tissue with features of organizing pneumonia and respiratory bronchiolitis, negative for neoplasm. Patient continues on amiodarone nebulized bronchodilators. His T-max in the last 24 hours was 99.8F. Follow-up pro-calcitonin level is pending today. fever pattern has improved in the last 24-48 hours. Today's labs have been reviewed white blood cell count is 9.2, hemoglobin is 9.1, platelet count is 672, electrolytes are within normal limits, BUN is 19 creatinine 0.37. She still has significant exertional dyspnea. But has been insisting on walking to the bathroom. Results of the biopsies and cultures have been discussed with the patient, current treatment plan was discussed. On 07/15/2021 patient seen in follow-up. Patient is awake and alert, in no acute distress. Patient is awake and alert, complains of exertional dyspnea, desats were talking, and walking to the bathroom, he is currently on 10 L of o xygen pulse ox is 91%, slightly tachycardic, blood pressure is been stable. Denies any chest pain, no cough, not bringing up any phlegm. No hemoptysis. He remains on nitric on his old which was started yesterday, and Zosyn per ID service recommendations. So far all cultures remain negative. Biopsy of the right middle lobe showed organizing pneumonia. No malignancy. Fungal cultures have been negative, Diflucan has been discontinued. Quantiferon Gold TB test was negative. Histoplasma antibodies were elevated which could possibly be chronic. However transbronchial biopsy did not show evidence of a fungal elements, Histoplasma urine antigen pending. Patient remains on oral Lasix, and he is in negative net fluid balance, we significantly decreased his steroids and he is currently down to 10 mg of prednisone daily. He remains on nebulized bronchodilators. Objective - Vital Signs Vital signs: Vital Signs Temp 98.4 F 07/15/21 08:00 Pulse 94 07/15/21 12:16 Resp 18 07/15/21 12:16 BP 114/76 07/15/21 11:52 Pulse Ox 91 L 07/15/21 11:52 Intake & Output 07/14/21 07/15/21 07/15/21 18:59 06:59 18:59 Intake Total 460 580 240 Output Total 1800 1200 800 Balance -3361 -732 -239 Weight 50.8 kg Intake: Intake, IV Titration 100 100 Amount Piperacillin-Tazobactam 3 100 100 .375 gm In Sodium Chloride 0.9% 100 ml @ 25 mls/hr IVPB Q8HR [facility] Rx# :[id number] Oral 360 480 240 Output: Urine 1800 1200 800 Other: Voiding Method Toilet Urinal # Voids 2 1 # Bowel Movements 1 1 - Exam GENERAL EXAM: Alert, very pleasant, 56-year-old white female, on 10 L of oxygen pulse ox of 92%, comfortable in no apparent distress. HEAD: Normocephalic/atraumatic. EYES: Normal reaction of pupils, equal size. Conjunctiva pink, sclera white. NOSE: Clear with pink turbinates. THROAT: No erythema or exudates. NECK: No masses, no JVD, no thyroid enlargement, no adenopathy. CHEST: No chest wall deformity. Symmetrical expansion. LUNGS: Equal air entry with no crackles, wheeze, rhonchi or dullness. CVS: Regular rate and rhythm, normal S1 and S2, no gallops, no murmurs, no rubs ABDOMEN: Soft, nontender. No hepatosplenomegaly, normal bowel sounds, no guarding or rigidity. EXTREMITIES: No clubbing, no edema, no cyanosis, 2+ pulses and upper and lower extremities. MUSCULOSKELETAL: Muscle strength and tone normal. SPINE: No scoliosis or deformity SKIN: No rashes CENTRAL NERVOUS SYSTEM: Alert and oriented -3. No focal deficits, tone is normal in all 4 extremities. PSYCHIATRIC: Alert and oriented -3. Appropriate affect. Intact judgment and insight. - Labs CBC & Chem 7: 07/15/21 10:41 07/15/21 10:41 Labs: Abnormal Lab Results - Last 24 Hours (Table) 07/15/21 07/15/21 Range/Units 10:41 10:41 WBC 14.3 H (3.8-10.6) k/uL Hgb 11.8 L (13.0-17.5) gm/dL Hct 38.5 L (39.0-53.0) % MCHC 30.6 L (31.0-37.0) g/dL RDW 17.7 H (11.5-15.5) % Plt Count 717 H (150-450) k/uL Neutrophils # 11.9 H (1.3-7.7) k/uL Sodium 134 L (137-145) mmol/L Glucose 144 H (74-99) mg/dL Calcium 8.1 L (8.4-10.2) mg/dL ALT 86 H (4-49) U/L Alkaline Phosphatase 196 H (38-126) U/L Albumin 2.8 L (3.5-5.0) g/dL Assessment and Plan Plan: Assessment: #1. Bilateral upper lobe pneumonia status post recent bronchoscopy with BAL on 06/24/2021, with negative BAL and viral cultures, COVID-19 PCR was negative. Patient is status post repeat bronchoscopy with BAL on 07/07/2021 with transbronchial biopsies of the right middle lobe, brushings and BAL of the right middle lobe, transbronchial biopsies were consistent with organizing pneumonia, BAL cultures negative thus far. MRSA and fungal cultures are negative, Aspergillus negative. Diflucan has been discontinued, Itraconazole was added in view of elevated histoplasma antibodies and this was identified by complement fixation. Nevertheless the character presentation is atypical and this could be related to an old histoplasma exposure. 5 to tell has been negative, Aspergillus antibodies have been negative #2. Acute hypoxic respiratory failure secondary to the above currently on 10 L of oxygen #3. Recent hospitalization for acute exacerbation of COPD, and bilateral pneumonia, discharged home on 06/25/2021 to complete 2 week course of Augmentin #4. Bullous emphysema/COPD, on home oxygen since the recent hospitalization on 4 L #5. Increased swelling in bilateral lower extremities, possibly related to acute exacerbation of systolic CHF #6. Prior history of myocardial infarction #7. History of paroxysmal A. fib status post AICD and pacemaker insertion #8. CAD with prior stenting #9. History of CHF with systolic dysfunction #10. Ischemic cardiomyopathy with EF of 30-35% #11. History of laparoscopic bilateral inguinal hernia repair #12. 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 History of anxiety Plan: Continue antibiotics per ID service recommendations, patient continues on Itraco nazole and Zosyn So far all cultures are negative, Requested the pathology to take a second look at the transbronchial biopsy for evidence of histoplasmosis Continue oral prednisone No fever overnight Continue oral Lasix Continue weaning FiO2 Provide incentive spirometer We'll obtain 2 view chest x-ray tomorrow Follow-up labs tomorrow I have personally seen and examined the patient, performed the documentation and the assessment and plan as written. Number of minutes spent on the visit: [15] Time with Patient: Less than 30 (I have personally seen and examined the patient and reviewed the documentation. I performed a joint evaluation with the nurse practitioner in this evaluation was done more than 20 minutes. I fully agree with the documentation above and the plan of care. The patient is essentially stable compared)
[2021-07-15] MEDS: carvediloL 3.125 MG TAB PO SCH (20:57)
[2021-07-15] MEDS: ALPRAZolam 0.5 MG TAB PO PRN (23:36)
[2021-07-16] MEDS: ACETAMINOPHEN TAB 325 MG TAB PO SCH ×3 (06:22→17:39)
[2021-07-16 07:59] LABS: Anisocytosis Slight; Basophils # (A) 0.1 k/uL (0-0.2); Basophils % (A) 0 %; Eosinophils # (A) 0.9 k/uL (0-0.7); Eosinophils % (A) 7 %; HCT 36.2 % (39.0-53.0); HGB 11.2 gm/dL (13.0-17.5); Hypochromasia Marked; Lymphocytes # (A) 1.4 k/uL (1.0-4.8); Lymphocytes % (A) 11 %; MCH 27.2 pg (25.0-35.0); MCHC 30.8 g/dL (31.0-37.0); MCV 88.2 fL (80.0-100.0); Mean Platelet Volume 7.7; Monocytes # (A) 0.3 k/uL (0-1.0); Monocytes % (A) 3 %; Neutrophils # (A) 10.3 k/uL (1.3-7.7); Neutrophils % (A) 79 %; Platelet Count 604 k/uL (150-450); Poikilocytosis Slight; RBC 4.11 m/uL (4.30-5.90); RDW 17.8 % (11.5-15.5); WBC 13.1 k/uL (3.8-10.6)
[2021-07-16 08:12] LABS: ALT 59 U/L (4-49); AST 30 U/L (17-59); African American GFR (CKD) >90 (>60 ml/min/1.73 sqM); Albumin 2.5 g/dL (3.5-5.0); Alkaline Phosphatase 143 U/L (38-126); Anion Gap 6 mmol/L; Bilirubin, Delta 0.3 mg/dL (0.0-0.2); Bilirubin,Unconjugated 0.5 mg/dL (0.0-1.1); Blood Urea Nitrogen 19 mg/dL (9-20); Calcium 8.2 mg/dL (8.4-10.2); Carbon Dioxide 24 mmol/L (22-30); Chloride 105 mmol/L (98-107); Glucose 115 mg/dL (74-99); Magnesium 1.9 mg/dL (1.6-2.3); Non-African American GFR(CKD) >90 (>60 ml/min/1.73 sqM); Potassium 4.1 mmol/L (3.5-5.1); Sodium 135 mmol/L (137-145); Total Bilirubin 0.8 mg/dL (0.2-1.3)
[2021-07-16] MEDS: SYMBICORT 80-4.5 MCG INHALER INHALATION SCH ×2 (08:16→20:30)
[2021-07-16] MEDS: IPRATROPIUM 0.5 MG/2.5 ML NEBU INHALATION SCH ×4 (08:16→20:29)
[2021-07-16] MEDS: DOCUSATE 100 MG CAP PO SCH ×2 (08:59→20:59)
[2021-07-16] MEDS: polyethylene glycoL 3350 17 GM POWD.PACK PO SCH (08:59)
--- NOTE | 2021-07-16 09:06 | XR ---
EXAMINATION TYPE: XR chest 2V DATE OF EXAM: 07/16/2021 COMPARISON: Chest x-ray 07/14/2021 HISTORY: Pneumonia and shortness of breath TECHNIQUE: Frontal and lateral views of the chest are obtained. FINDINGS: Bilateral abnormal attenuation within the lungs shows a similar appearance. Right-sided PI CC line, defibrillator are again noted and stable. No evident pneumothorax or pleural effusion. Cardi ac mediastinal silhouette is stable. IMPRESSION: Correlate for pneumonia
[2021-07-16] MEDS: NON FORMULARY DRUG (Buprenorphine Hcl/Naloxone Hcl [Suboxone 8 Mg-2 Mg Sl Film] 1 EACH Fil SUBLINGUAL SCH (10:13)
[2021-07-16] MEDS: FUROSEMIDE 40 MG TAB PO SCH (10:15)
[2021-07-16] MEDS: ITRACONAZOLE 100 MG CAP PO SCH ×3 (10:15→21:00)
[2021-07-16] MEDS: predniSONE 10 MG TAB PO SCH (10:15)
[2021-07-16] MEDS: HEPARIN SODIUM,PORCINE/PF 5,000 UNIT/0.5 ML SYRINGE SQ SCH ×2 (10:15→17:40)
[2021-07-16] MEDS: ASPIRIN 81 MG PO SCH (10:16)
[2021-07-16] MEDS: LACTOBACILLUS ACIDOPH & BULGAR 1 EACH PACKET PO SCH (10:16)
[2021-07-16] MEDS: NICOTINE 21MG/24HR PATCH TRANSDERM SCH (10:16)
[2021-07-16] MEDS: PIPERACILLIN-TAZOBACTAM 3.375 GM in SODIUM CHLORIDE 0.9% 100 ML IVPB SCH ×2 (10:16→17:39)
--- NOTE | 2021-07-16 10:28 | P.PN ---
Subjective Progress Note Date: 07/16/21 Pt improving from 10 to 8L HFNC. Feels much better. No more fevers since 07/06. On itraconazole, zosyn. Gen: awake, alert HEENT: normocephalic, atraumatic, good hearing acuity, moist mucous membranes Resp: impaired air exchange, breathing comfortably with no accessory muscle use CVS: good distal perfusion x 4, GI: soft, NTTP, ND : no SPT, no CVAT, sung catheter not present MSK: no pitting edema, no clubbing Neuro: non-focal, moving all extremities Psych: cooperative, euthymic mood Sepsis with acute on chronic hypoxemic respiratory failure COPD Exacerbation High likelihood of Fungal Pneumonia secondary to Histoplasma - itraconazole, zosyn, prednisone - PICC line placed 07/03 - Pulm and ID recs - Blood cultures NGTD - Repeat Sputum Cx and AFB stain on 07/04, negative/NGTD - CrAg, galactomannan, [id number] negative - MRSA, HIV negative; Immunoglobulin G subgroup panel WNL - IgE level elevated - Histoplasma yeast CF Ab 1:16, mycel CF Ab 1:128; - Histoplasma immunodiffusion M/H precipitins are positive, this is 100% specific for acute active histoplasmosis, -oddly no granulomas seen on biopsy or hyphael elements seen on PAS, GMS stains - atypical histoplasma fungal presentation -Fungal Cx from 06/23, pending, will be updated 07/17 per Lab -Fungal Cx from 07/07, pending, will be updated 07/17 per Lab -blood histoplasma Ab pending result -urine histoplasma Ab pending collection Acute exacerbation of systolic CHF with EF 30-35 % ASCAD - Oral Lasix - ASA, lipitor, BB - entresto on hold due to recent hypotension on last hospital stay. Patient plans on following up with his primary grief counselor regarding this. Thrombocytosis - chronic at baseline - follow CBC Tobacco abuse - cessation - nicotine replacement if needed Underweight with BMI 18.2 - dietitian recs DVT prophylaxis: heparin Anticipated discharge: pending clinical course Anticipated discharge place: home Objective - Vital Signs Vital signs: Vital Signs Temp 98.2 F 07/16/21 04:00 Pulse 110 H 07/16/21 08:27 Resp 20 07/16/21 04:00 BP 109/71 07/16/21 04:00 Pulse Ox 91 L 07/16/21 04:00 Intake & Output 07/15/21 07/16/21 07/16/21 18:59 06:59 18:59 Intake Total 702 440 Output Total 800 250 Balance -98 190 Weight 50.8 kg Intake: Intake, IV Titration 200 Amount Piperacillin-Tazobactam 3 200 .375 gm In Sodium Chloride 0.9% 100 ml @ 25 mls/hr IVPB Q8HR [facility] Rx# :[id number] Oral 702 240 Output: Urine 800 250 - Labs CBC & Chem 7: 07/16/21 07:25 07/16/21 07:25 Labs: Abnormal Lab Results - Last 24 Hours (Table) 07/15/21 07/15/21 07/16/21 Range/Units 10:41 10:41 07:25 WBC 14.3 H 13.1 H (3.8-10.6) k/uL RBC 4.11 L (4.30-5.90) m/uL Hgb 11.8 L 11.2 L (13.0-17.5) gm/dL Hct 38.5 L 36.2 L (39.0-53.0) % MCHC 30.6 L 30.8 L (31.0-37.0) g/dL RDW 17.7 H 17.8 H (11.5-15.5) % Plt Count 717 H 604 H (150-450) k/uL Neutrophils # 11.9 H 10.3 H (1.3-7.7) k/uL Eosinophils # 0.9 H (0-0.7) k/uL Sodium 134 L (137-145) mmol/L Creatinine (0.66-1.25) mg/dL Glucose 144 H (74-99) mg/dL Calcium 8.1 L (8.4-10.2) mg/dL Delta Bilirubin (0.0-0.2) mg/dL ALT 86 H (4-49) U/L Alkaline Phosphatase 196 H (38-126) U/L Total Protein (6.3-8.2) g/dL Albumin 2.8 L (3.5-5.0) g/dL 07/16/21 Range/Units 07:25 WBC (3.8-10.6) k/uL RBC (4.30-5.90) m/uL Hgb (13.0-17.5) gm/dL Hct (39.0-53.0) % MCHC (31.0-37.0) g/dL RDW (11.5-15.5) % Plt Count (150-450) k/uL Neutrophils # (1.3-7.7) k/uL Eosinophils # (0-0.7) k/uL Sodium 135 L (137-145) mmol/L Creatinine 0.55 L (0.66-1.25) mg/dL Glucose 115 H (74-99) mg/dL Calcium 8.2 L (8.4-10.2) mg/dL Delta Bilirubin 0.3 H (0.0-0.2) mg/dL ALT 59 H (4-49) U/L Alkaline Phosphatase 143 H (38-126) U/L Total Protein 6.0 L (6.3-8.2) g/dL Albumin 2.5 L (3.5-5.0) g/dL
[2021-07-16] MEDS: FUROSEMIDE 10 MG/ML 4 ML VIAL IV SCH (13:08)
--- NOTE | 2021-07-16 14:18 | P.PN ---
Subjective Progress Note Date: 07/16/21 Principal diagnosis: swelling in BLE 56-year-old male patient with known history of COPD, chronic smoker, CAD, paroxysmal A. fib status post pacemaker insertion, chronic CHF with systolic dysfunction, ischemic cardiomyopathy with EF of 30-35% with AICD placement, anxiety who was recently hospitalized for acute exacerbation of COPD, complicated with possible pneumonia. Patient's chest x-ray showed bilateral airspace disease, underlying emphysema. CT angiogram of the chest showed no evidence of pulmonary embolism, extensive bullous pulmonary emphysema, with extensive honeycombing infiltrate in the mid and upper lung hendricks. Patient was treated with a combination of Rocephin and Zithromax initially, however he continued to have intermittent febrile episodes and subsequently he was switched to Zosyn by infectious disease service. Patient ended up having bronchoalveolar lavage on 06/24/[address] Ulloa, and BAL cultures showed no growth other than Jacey albicans. A separate BAL cultures were taken from right upper lobe and left lower lobe, cytology was negative for diagnostic malignancy. BAL cultures and viral cultures were negative. Patient was clinically improving, after being switched over to Zosyn patient's fever pattern had improved, and subsequently he was discharged home on oral course of Augmentin, and we recommended at least 2 week treatment with Augmentin, completion of prednisone taper and patient was sent home on home oxygen at 4 L. Patient states he was discharged on a Tuesday, by Tuesday night he started having increased swelling in his lower extremities, he could hardly get his socks on. At the same time he started developing a fever. He states he picked up his antibiotics and was taking them, he denied any worsening shortness of breath, no cough, no phlegm production, no hemoptysis no chest pain. No swelling or tenderness in the bilateral calves. He came into the emergency department for reevaluation on 06/29/2021. His temperature on admission was 101.4F. Chest x-ray showed findings similar to the prior exam with bilateral airspace disease, increased interstitium and underlying emphysema. Admission labs showed white blood cell count of 14.3, hemoglobin 12.4, sodium is 133, the rest of electrolytes were unremarkable, B1 is 16 creatinine 0.55, proBNP was 1520, troponin was 0.017, AST was 46, ALT was 158, alk phos was 146, urinalysis showed no evidence of infection, patient tested negative for COVID 19. Patient was started on vancomycin for antibiotic coverage, and Zosyn. He was started on oral Lasix a fter a single dose of IV Lasix 40 mg. Currently ankle edema is improving, he is diuresing, he continues on the bronchodilators. On 07/01/2021 patient seen in follow-up on medical surgical floor, he states he is breathing comfortably, he is currently on 2 L of oxygen his pulse ox is 91- 93%. His ankle swelling is significantly down, this morning patient was able to produce a sputum specimen which was sent for culture, follow-up chest x-ray today showing confluent densities in the upper lobes, and worsening pneumonia. Patient currently remains on Zosyn and vancomycin. No fever or chills over night. White blood cell count is 10.6, hemoglobin is 10.9, sodium is 131, the rest of the electrolytes and renal profile were unremarkable, LFTs are improved. No chest discomfort, no hemoptysis. Patient continues on nebulized bronchodilators, he is on oral dose of Lasix 40 mg daily. On 07/02/2021 patient seen in follow-up on medical surgical floor. He is still having intermittent fevers, T-max in last 24 hours 101.8F, patient was initially covered with a combination of Zosyn and vancomycin, ID service recommended discontinuing vancomycin and patient is currently on Zosyn and Levaquin has been added. Urine for Legionella antigen will be sent. Cultures reviewed, blood cultures have been negative, sputum Gram stain showing rare PMNs, few gram-positive cocci in clusters, few budding yeast. BAL cultures showed Jacey albicans. Today's labs reviewed, with blood cell count 12.3, hemoglobin is 9.3, sodium is 1:0, potassium is 4.3, B1 17 creatinine 0.57, CRP is 20.8, and pro-calcitonin level was 0.56. No worsening cough or hemoptysis, no chest pain, no altered mentation, hemodynamically has been stable, he has been tolerating ambulation in the room. Lower extremity swelling has significantly improved, patient remains on once daily dose of Lasix. 07/03/2021 patient seen in follow-up. He states there is no worsening dyspnea, occasional cough, no significant phlegm production, no chest discomfort, he remains on 2 L of oxygen the pulse ox of 90-93%, his fever pattern has improved in the last 24 hours, although the patient still has persistent low-grade fevers with a T-max of 100.6F. Room air pulse ox is 87%, and patient is very frustrated this morning as he was placed on the schedule for possible bronchoscopy with BAL without proper communication with him. Dr. Lundberg is at the bedside, and patient clinically has not worsened, he is currently on a combination of Levaquin and Zosyn, there has been no growth on BAL cultures from last admission, or blood or sputum culture, nasal swab for MRSA was negative. Follow blood cultures show no growth. Legionella urine antigen was negative. Yesterday CT of the chest was completed showing progressive chronic consolid ation, likely representing progressive pneumonia, enlarged lymph nodes likely reactive. On 07/06/2021 patient seen in follow-up. Patient continues to have intermittent fevers, at 101.8F at noon today. Currently remains on Unasyn and Diflucan, no new growth on cultures including BAL from 06/23/2021. Clinically he appears to be breathing fairly comfortably, no worsening cough or dyspnea, does have exertional dyspnea, no chest discomfort. Patient is on 2 L, his pulse ox of 92- 96%. His chest x-ray from yesterday showed persistent suprahilar and upper lobe airspace infiltrate with underlying cystic changes. Today's labs have been reviewed, with blood cell count is 15.6, hemoglobin is 9.4, platelet count is 592, sodium is 133, potassium is 4.3, chloride is 95, BUN is 16, creatinine 0.6, Legionella urine antigen was negative. On 07/10/2021 patient seen in follow-up. Patient is mildly dyspneic at rest, but states that his breathing is a little better, he is able to bring up some phlegm, steroids were added on yesterday, and patient continues on empiric antibiotics, so far he is BAL cultures have shown no growth other than Jacey. Patient remains on empiric antibiotics in the form of Zosyn, and doxycycline and Diflucan. Vancomycin has been discontinued. Has right middle lobe transbronchial biopsies showed bronchial mucosa and peribronchial alveolar tissue with features of organizing pneumonia and respiratory bronchiolitis, negative for neoplasm. Patient continues on amiodarone nebulized bronchodilators. His T-max in the last 24 hours was 99.8F. Follow-up pro-calcitonin level is pending today. fever pattern has improved in the last 24-48 hours. Today's labs have been reviewed white blood cell count is 9.2, hemoglobin is 9.1, platelet count is 672, electrolytes are within normal limits, BUN is 19 creatinine 0.37. She still has significant exertional dyspnea. But has been insisting on walking to the bathroom. Results of the biopsies and cultures have been discussed with the patient, current treatment plan was discussed. On 07/15/2021 patient seen in follow-up. Patient is awake and alert, in no acute distress. Patient is awake and alert, complains of exertional dyspnea, desats were talking, and walking to the bathroom, he is currently on 10 L of o xygen pulse ox is 91%, slightly tachycardic, blood pressure is been stable. Denies any chest pain, no cough, not bringing up any phlegm. No hemoptysis. He remains on nitric on his old which was started yesterday, and Zosyn per ID service recommendations. So far all cultures remain negative. Biopsy of the right middle lobe showed organizing pneumonia. No malignancy. Fungal cultures have been negative, Diflucan has been discontinued. Quantiferon Gold TB test was negative. Histoplasma antibodies were elevated which could possibly be chronic. However transbronchial biopsy did not show evidence of a fungal elements, Histoplasma urine antigen pending. Patient remains on oral Lasix, and he is in negative net fluid balance, we significantly decreased his steroids and he is currently down to 10 mg of prednisone daily. He remains on nebulized bronchodilators. On 07/16/2021 patient seen in follow-up on selective care unit, is currently on 8 L of oxygen, and his pulse ox is 86-88%. Patient states he is dyspneic with conversation and exertion, but no acute distress, no worsening dyspnea. he was able to get a good night's sleep last night. Afebrile, vital signs have been stable. Follow-up chest x-ray today shows stable abnormal attenuation within the lungs, without change. Patient remains on Zosyn and Itraconazole. Today's labs have been reviewed white blood cell count is 13.1, hemoglobin is 11.2, platelet count is 604, sodium is 135, demonstrated electrolytes and renal profile are unremarkable. No new growth on cultures. Patient is complaining of increased ankle edema, he remains on oral Lasix 40 mg once daily. Lung sounds are diminished, no crackles auscultated, no wheezing. Objective - Vital Signs Vital signs: Vital Signs Temp 97.6 F 07/16/21 08:00 Pulse 98 07/16/21 12:10 Resp 18 07/16/21 08:00 BP 108/69 07/16/21 08:00 Pulse Ox 87 L 07/16/21 08:00 Intake & Output 07/15/21 07/16/21 07/16/21 18:59 06:59 18:59 Intake Total 702 440 480 Output Total 800 250 600 Balance -98 190 -120 Weight 50.8 kg Intake: Intake, IV Titration 200 Amount Piperacillin-Tazobactam 3 200 .375 gm In Sodium Chloride 0.9% 100 ml @ 25 mls/hr IVPB Q8HR [facility] Rx# :[id number] Oral 702 240 480 Output: Urine 800 250 600 - Exam GENERAL EXAM: Alert, very pleasant, 56-year-old white female, on 8 L of oxygen pulse ox of 87-91%, comfortable in no apparent distress. HEAD: Normocephalic/atraumatic. EYES: Normal reaction of pupils, equal size. Conjunctiva pink, sclera white. NOSE: Clear with pink turbinates. THROAT: No erythema or exudates. NECK: No masses, no JVD, no thyroid enlargement, no adenopathy. CHEST: No chest wall deformity. Symmetrical expansion. LUNGS: Equal air entry with no crackles, wheeze, rhonchi or dullness. CVS: Regular rate and rhythm, normal S1 and S2, no gallops, no murmurs, no rubs ABDOMEN: Soft, nontender. No hepatosplenomegaly, normal bowel sounds, no guarding or rigidity. EXTREMITIES: No clubbing, no edema, no cyanosis, 2+ pulses and upper and lower extremities. MUSCULOSKELETAL: Muscle strength and tone normal. SPINE: No scoliosis or deformity SKIN: No rashes CENTRAL NERVOUS SYSTEM: Alert and oriented -3. No focal deficits, tone is normal in all 4 extremities. PSYCHIATRIC: Alert and oriented -3. Appropriate affect. Intact judgment and insight. - Labs CBC & Chem 7: 07/16/21 07:25 07/16/21 07:25 Labs: Abnormal Lab Results - Last 24 Hours (Table) 03/17/22 03/17/22 Range/Units 07:25 07:25 WBC 13.1 H (3.8-10.6) k/uL RBC 4.11 L (4.30-5.90) m/uL Hgb 11.2 L (13.0-17.5) gm/dL Hct 36.2 L (39.0-53.0) % MCHC 30.8 L (31.0-37.0) g/dL RDW 17.8 H (11.5-15.5) % Plt Count 604 H (150-450) k/uL Neutrophils # 10.3 H (1.3-7.7) k/uL Eosinophils # 0.9 H (0-0.7) k/uL Sodium 135 L (137-145) mmol/L Creatinine 0.55 L (0.66-1.25) mg/dL Glucose 115 H (74-99) mg/dL Calcium 8.2 L (8.4-10.2) mg/dL Delta Bilirubin 0.3 H (0.0-0.2) mg/dL ALT 59 H (4-49) U/L Alkaline Phosphatase 143 H (38-126) U/L Total Protein 6.0 L (6.3-8.2) g/dL Albumin 2.5 L (3.5-5.0) g/dL Assessment and Plan Plan: Assessment: #1. Bilateral upper lobe pneumonia status post recent bronchoscopy with BAL on 06/24/2021, with negative BAL and viral cultures, COVID-19 PCR was negative. Patient is status post repeat bronchoscopy with BAL on 07/07/2021 with transbronchial biopsies of the right middle lobe, brushings and BAL of the right middle lobe, transbronchial biopsies were consistent with organizing pneumonia, BAL cultures negative thus far. MRSA and fungal cultures are negative, Aspergillus negative. Diflucan has been discontinued, Itraconazole was added in view of elevated histoplasma antibodies and this was identified by complement fixation. Nevertheless the character presentation is atypical and this could be related to an old histoplasma exposure. 5 to tell has been negative, Aspergillus antibodies have been negative #2. Acute hypoxic respiratory failure secondary to the above currently on 10 L of oxygen #3. Recent hospitalization for acute exacerbation of COPD, and bilateral pneumonia, discharged home on 06/25/2021 to complete 2 week course of Augmentin #4. Bullous emphysema/COPD, on home oxygen since the recent hospitalization on 4 L #5. Increased swelling in bilateral lower extremities, possibly related to acute exacerbation of systolic CHF #6. Prior history of myocardial infarction #7. History of paroxysmal A. fib status post AICD and pacemaker insertion #8. CAD with prior stenting #9. History of CHF with systolic dysfunction #10. Ischemic cardiomyopathy with EF of 30-35% #11. History of laparoscopic bilateral inguinal hernia repair #12. 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 History of anxiety Plan: Follow-up chest x-ray has been reviewed and showed stable findings of bilateral continuation Clinically patient is about the same, Given extra dose of Lasix for increased ankle edema Continue antibiotics per ID service recommendations, patient continues on Itraconazole and Zosyn So far all cultures are negative, Continue oral prednisone No fever overnight Continue weaning FiO2 Provide incentive spirometer Follow-up pro-calcitonin tomorrow Awaiting results of the histoplasma urine antigen I have personally seen and examined the patient and reviewed the documentation. I performed a joint evaluation with the nurse practitioner in this evaluation was done more than 20 minutes. I fully agree with the documentation above and the plan of care. Ureter this patient today along with a nurse practitioner. The patient is currently on the same antibiotic coverage. Clinically stable. Chest x-ray was reviewed and is essentially stable. No interval worsening. Currently on 8 L of O2 by nasal cannula. We'll continue to follow. Long-term prognosis remains poor baseline above-mentioned comorbidities. Time with Patient: Less than 30
--- NOTE | 2021-07-16 17:14 | P.PN ---
Subjective Progress Note Date: 07/16/21 Principal diagnosis: Pneumonia Patient is a 56-year-old male who was recently admitted to the hospital and was diagnosed with pneumonia status post bronchoscopy and those culture were negative patient was subsequently discharged home on oral antibiotics and currently admitted to the hospital within 72 hours with a fever. Patient repeat CT did shows progression of his pneumonia and the patient is status post bronchoscopy biopsy and lavage completed 07/07/2021 On today's evaluation that is 07/16/2021, the patient denies any fever or any chills, the patient is complaining of shortness of breath on minimal exertion, is currently requiring 8 L nasal canal oxygen, the patient denies having any chest pain,no worsening cough or sputum production, no abdominal pain and no diarrhea Objective - Vital Signs Vital signs: Vital Signs Temp 97.6 F 07/16/21 08:00 Pulse 98 07/16/21 12:10 Resp 18 07/16/21 08:00 BP 108/69 07/16/21 08:00 Pulse Ox 87 L 07/16/21 08:00 Intake & Output 07/15/21 07/16/21 07/16/21 18:59 06:59 18:59 Intake Total 702 440 480 Output Total 800 250 600 Balance -98 190 -120 Weight 50.8 kg Intake: Intake, IV Titration 200 Amount Piperacillin-Tazobactam 3 200 .375 gm In Sodium Chloride 0.9% 100 ml @ 25 mls/hr IVPB Q8HR [facility] Rx# :[id number] Oral 702 240 480 Output: Urine 800 250 600 - Exam GENERAL DESCRIPTION: Middle-aged male lying in bed in no distress RESPIRATORY SYSTEM: Unlabored breathing , decreased breath sounds at bases HEART: S1 S2 regular rate and rhythm , ABDOMEN: Soft , no tenderness EXTREMITIES: No edema feet - Labs CBC & Chem 7: 07/16/21 07:25 07/16/21 07:25 Labs: Abnormal Lab Results - Last 24 Hours (Table) 07/16/21 07/16/21 Range/Units 07:25 07:25 WBC 13.1 H (3.8-10.6) k/uL RBC 4.11 L (4.30-5.90) m/uL Hgb 11.2 L (13.0-17.5) gm/dL Hct 36.2 L (39.0-53.0) % MCHC 30.8 L (31.0-37.0) g/dL RDW 17.8 H (11.5-15.5) % Plt Count 604 H (150-450) k/uL Neutrophils # 10.3 H (1.3-7.7) k/uL Eosinophils # 0.9 H (0-0.7) k/uL Sodium 135 L (137-145) mmol/L Creatinine 0.55 L (0.66-1.25) mg/dL Glucose 115 H (74-99) mg/dL Calcium 8.2 L (8.4-10.2) mg/dL Delta Bilirubin 0.3 H (0.0-0.2) mg/dL ALT 59 H (4-49) U/L Alkaline Phosphatase 143 H (38-126) U/L Total Protein 6.0 L (6.3-8.2) g/dL Albumin 2.5 L (3.5-5.0) g/dL Assessment and Plan (1) Febrile illness, acute Current Visit: Yes Status: Acute Code(s): R50.9 - FEVER, UNSPECIFIED SNOMED Code(s): 997581410 (2) Pneumonia Current Visit: Yes Status: Acute Code(s): J18.9 - PNEUMONIA, UNSPECIFIED ORGANISM SNOMED Code(s): 512113270 Plan: 1patient presented to hospital with a fever increasing shortness of breath and this patient was recently diagnosed with the right-sided pneumonia status post bronchoscopy and was culture showed Jacey likely colonizer, failing outpatient oral antibiotic therapy. 2sputum cultures as well as urine for Legionella antigen has been negative [address] of the chest did show progressive pulmonary consolidation, likely representing progressive pneumonia, patient is status post bronchoscopy biopsy and lavage and cultures are so far negative 4-patient is currently being treated with the Zosyn and itraconazole while waiting for the workup to be completed and condition stabilized, will check itraconazole level with a.m. lab and continue supportive care Time with Patient: Less than 30
[2021-07-16] MEDS: carvediloL 3.125 MG TAB PO SCH (21:00)
[2021-07-17] MEDS: PIPERACILLIN-TAZOBACTAM 3.375 GM in SODIUM CHLORIDE 0.9% 100 ML IVPB SCH ×3 (00:13→18:28)
[2021-07-17] MEDS: ALPRAZolam 0.5 MG TAB PO PRN ×2 (00:13→23:28)
[2021-07-17] MEDS: ACETAMINOPHEN TAB 325 MG TAB PO SCH ×7 (00:13→23:28)
[2021-07-17] MEDS: HEPARIN SODIUM,PORCINE/PF 5,000 UNIT/0.5 ML SYRINGE SQ SCH ×4 (03:14→23:36)
[2021-07-17] MEDS: SYMBICORT 80-4.5 MCG INHALER INHALATION SCH ×2 (09:03→20:00)
[2021-07-17] MEDS: IPRATROPIUM 0.5 MG/2.5 ML NEBU INHALATION SCH ×4 (09:03→19:58)
[2021-07-17] MEDS: ITRACONAZOLE 100 MG CAP PO SCH ×3 (09:57→21:10)
[2021-07-17] MEDS: predniSONE 10 MG TAB PO SCH (09:57)
[2021-07-17] MEDS: FUROSEMIDE 10 MG/ML 4 ML VIAL IV SCH (09:58)
[2021-07-17] MEDS: ASPIRIN 81 MG PO SCH (09:58)
[2021-07-17] MEDS: DOCUSATE 100 MG CAP PO SCH ×2 (09:59→20:21)
[2021-07-17] MEDS: NICOTINE 21MG/24HR PATCH TRANSDERM SCH (09:59)
[2021-07-17] MEDS: LACTOBACILLUS ACIDOPH & BULGAR 1 EACH PACKET PO SCH (09:59)
[2021-07-17] MEDS: NON FORMULARY DRUG (Buprenorphine Hcl/Naloxone Hcl [Suboxone 8 Mg-2 Mg Sl Film] 1 EACH Fil SUBLINGUAL SCH (10:00)
[2021-07-17] MEDS: polyethylene glycoL 3350 17 GM POWD.PACK PO SCH (10:00)
--- NOTE | 2021-07-17 10:18 | P.PN ---
Subjective Progress Note Date: 07/17/21 Pt improving from 10 to 8L HFNC. Feels much better. No more fevers since 07/06. On itraconazole, zosyn. Gen: awake, alert HEENT: normocephalic, atraumatic, good hearing acuity, moist mucous membranes Resp: impaired air exchange, breathing comfortably with no accessory muscle use CVS: good distal perfusion x 4, GI: soft, NTTP, ND : no SPT, no CVAT, sung catheter not present MSK: no pitting edema, no clubbing Neuro: non-focal, moving all extremities Psych: cooperative, euthymic mood Sepsis with acute on chronic hypoxemic respiratory failure COPD Exacerbation High likelihood of Fungal Pneumonia secondary to Histoplasma - itraconazole, zosyn, prednisone - PICC line placed 07/03 - Pulm and ID recs - Blood cultures NGTD - Repeat Sputum Cx and AFB stain on 07/04, negative/NGTD - CrAg, galactomannan, [id number] negative - MRSA, HIV negative; Immunoglobulin G subgroup panel WNL - IgE level elevated - Histoplasma yeast CF Ab 1:16, mycel CF Ab 1:128; - Histoplasma immunodiffusion M/H precipitins are positive, this is 100% specific for acute active histoplasmosis, -oddly no granulomas seen on biopsy or hyphael elements seen on PAS, GMS stains - atypical histoplasma fungal presentation -Fungal Cx from 06/23, pending, will be updated 07/17 per Lab -Fungal Cx from 07/07, pending, will be updated 07/17 per Lab -blood histoplasma Ab pending result -urine histoplasma Ab pending Acute exacerbation of systolic CHF with EF 30-35 % ASCAD - Oral Lasix - ASA, lipitor, BB - entresto on hold due to recent hypotension on last hospital stay. Patient plans on following up with his primary employment coach regarding this. Thrombocytosis - chronic at baseline - follow CBC Tobacco abuse - cessation - nicotine replacement if needed Underweight with BMI 18.2 - dietitian recs DVT prophylaxis: heparin Anticipated discharge: pending clinical course Anticipated discharge place: home Objective - Vital Signs Vital signs: Vital Signs Temp 98.7 F 07/17/21 04:00 Pulse 95 07/17/21 09:18 Resp 18 07/17/21 04:00 BP 103/71 07/17/21 04:00 Pulse Ox 89 L 07/17/21 09:04 Intake & Output 07/16/21 07/17/21 07/17/21 18:59 06:59 18:59 Intake Total 960 440 480 Output Total 1400 950 Balance -440 -510 480 Weight 49.3 kg Intake: Intake, IV Titration 100 Amount Piperacillin-Tazobactam 3 100 .375 gm In Sodium Chloride 0.9% 100 ml @ 25 mls/hr IVPB Q8HR [facility] Rx# :[id number] Oral 960 340 480 Output: Urine 1400 950 - Labs CBC & Chem 7: 07/16/21 07:25 07/16/21 07:25 Labs: Abnormal Lab Results - Last 24 Hours (Table) 07/16/21 07/16/21 Range/Units 07:25 07:25 ESR 28 H (0-15) mm/hr C-Reactive Protein 8.9 H (<1.0) mg/dL
[2021-07-17] MEDS: IPRATROPIUM-ALBUTEROL 3 ML NEB INHALATION PRN ×3 (11:59→19:59)
--- NOTE | 2021-07-17 14:33 | P.PN ---
Subjective Progress Note Date: 07/17/21 Principal diagnosis: swelling in BLE 56-year-old male patient with known history of COPD, chronic smoker, CAD, paroxysmal A. fib status post pacemaker insertion, chronic CHF with systolic dysfunction, ischemic cardiomyopathy with EF of 30-35% with AICD placement, anxiety who was recently hospitalized for acute exacerbation of COPD, complicated with possible pneumonia. Patient's chest x-ray showed bilateral airspace disease, underlying emphysema. CT angiogram of the chest showed no evidence of pulmonary embolism, extensive bullous pulmonary emphysema, with extensive honeycombing infiltrate in the mid and upper lung hendricks. Patient was treated with a combination of Rocephin and Zithromax initially, however he continued to have intermittent febrile episodes and subsequently he was switched to Zosyn by infectious disease service. Patient ended up having bronchoalveolar lavage on 06/24/[address] Ulloa, and BAL cultures showed no growth other than Jacey albicans. A separate BAL cultures were taken from right upper lobe and left lower lobe, cytology was negative for diagnostic malignancy. BAL cultures and viral cultures were negative. Patient was clinically improving, after being switched over to Zosyn patient's fever pattern had improved, and subsequently he was discharged home on oral course of Augmentin, and we recommended at least 2 week treatment with Augmentin, completion of prednisone taper and patient was sent home on home oxygen at 4 L. Patient states he was discharged on a Tuesday, by Tuesday night he started having increased swelling in his lower extremities, he could hardly get his socks on. At the same time he started developing a fever. He states he picked up his antibiotics and was taking them, he denied any worsening shortness of breath, no cough, no phlegm production, no hemoptysis no chest pain. No swelling or tenderness in the bilateral calves. He came into the emergency department for reevaluation on 06/29/2021. His temperature on admission was 101.4F. Chest x-ray showed findings similar to the prior exam with bilateral airspace disease, increased interstitium and underlying emphysema. Admission labs showed white blood cell count of 14.3, hemoglobin 12.4, sodium is 133, the rest of electrolytes were unremarkable, B1 is 16 creatinine 0.55, proBNP was 1520, troponin was 0.017, AST was 46, ALT was 158, alk phos was 146, urinalysis showed no evidence of infection, patient tested negative for COVID 19. Patient was started on vancomycin for antibiotic coverage, and Zosyn. He was started on oral Lasix a fter a single dose of IV Lasix 40 mg. Currently ankle edema is improving, he is diuresing, he continues on the bronchodilators. On 07/01/2021 patient seen in follow-up on medical surgical floor, he states he is breathing comfortably, he is currently on 2 L of oxygen his pulse ox is 91- 93%. His ankle swelling is significantly down, this morning patient was able to produce a sputum specimen which was sent for culture, follow-up chest x-ray today showing confluent densities in the upper lobes, and worsening pneumonia. Patient currently remains on Zosyn and vancomycin. No fever or chills over night. White blood cell count is 10.6, hemoglobin is 10.9, sodium is 131, the rest of the electrolytes and renal profile were unremarkable, LFTs are improved. No chest discomfort, no hemoptysis. Patient continues on nebulized bronchodilators, he is on oral dose of Lasix 40 mg daily. On 07/02/2021 patient seen in follow-up on medical surgical floor. He is still having intermittent fevers, T-max in last 24 hours 101.8F, patient was initially covered with a combination of Zosyn and vancomycin, ID service recommended discontinuing vancomycin and patient is currently on Zosyn and Levaquin has been added. Urine for Legionella antigen will be sent. Cultures reviewed, blood cultures have been negative, sputum Gram stain showing rare PMNs, few gram-positive cocci in clusters, few budding yeast. BAL cultures showed Jacey albicans. Today's labs reviewed, with blood cell count 12.3, hemoglobin is 9.3, sodium is 1:0, potassium is 4.3, B1 17 creatinine 0.57, CRP is 20.8, and pro-calcitonin level was 0.56. No worsening cough or hemoptysis, no chest pain, no altered mentation, hemodynamically has been stable, he has been tolerating ambulation in the room. Lower extremity swelling has significantly improved, patient remains on once daily dose of Lasix. 07/03/2021 patient seen in follow-up. He states there is no worsening dyspnea, occasional cough, no significant phlegm production, no chest discomfort, he remains on 2 L of oxygen the pulse ox of 90-93%, his fever pattern has improved in the last 24 hours, although the patient still has persistent low-grade fevers with a T-max of 100.6F. Room air pulse ox is 87%, and patient is very frustrated this morning as he was placed on the schedule for possible bronchoscopy with BAL without proper communication with him. Dr. Lundberg is at the bedside, and patient clinically has not worsened, he is currently on a combination of Levaquin and Zosyn, there has been no growth on BAL cultures from last admission, or blood or sputum culture, nasal swab for MRSA was negative. Follow blood cultures show no growth. Legionella urine antigen was negative. Yesterday CT of the chest was completed showing progressive chronic consolid ation, likely representing progressive pneumonia, enlarged lymph nodes likely reactive. On 07/06/2021 patient seen in follow-up. Patient continues to have intermittent fevers, at 101.8F at noon today. Currently remains on Unasyn and Diflucan, no new growth on cultures including BAL from 06/23/2021. Clinically he appears to be breathing fairly comfortably, no worsening cough or dyspnea, does have exertional dyspnea, no chest discomfort. Patient is on 2 L, his pulse ox of 92- 96%. His chest x-ray from yesterday showed persistent suprahilar and upper lobe airspace infiltrate with underlying cystic changes. Today's labs have been reviewed, with blood cell count is 15.6, hemoglobin is 9.4, platelet count is 592, sodium is 133, potassium is 4.3, chloride is 95, BUN is 16, creatinine 0.6, Legionella urine antigen was negative. On 07/10/2021 patient seen in follow-up. Patient is mildly dyspneic at rest, but states that his breathing is a little better, he is able to bring up some phlegm, steroids were added on yesterday, and patient continues on empiric antibiotics, so far he is BAL cultures have shown no growth other than Jacey. Patient remains on empiric antibiotics in the form of Zosyn, and doxycycline and Diflucan. Vancomycin has been discontinued. Has right middle lobe transbronchial biopsies showed bronchial mucosa and peribronchial alveolar tissue with features of organizing pneumonia and respiratory bronchiolitis, negative for neoplasm. Patient continues on amiodarone nebulized bronchodilators. His T-max in the last 24 hours was 99.8F. Follow-up pro-calcitonin level is pending today. fever pattern has improved in the last 24-48 hours. Today's labs have been reviewed white blood cell count is 9.2, hemoglobin is 9.1, platelet count is 672, electrolytes are within normal limits, BUN is 19 creatinine 0.37. She still has significant exertional dyspnea. But has been insisting on walking to the bathroom. Results of the biopsies and cultures have been discussed with the patient, current treatment plan was discussed. On 07/15/2021 patient seen in follow-up. Patient is awake and alert, in no acute distress. Patient is awake and alert, complains of exertional dyspnea, desats were talking, and walking to the bathroom, he is currently on 10 L of o xygen pulse ox is 91%, slightly tachycardic, blood pressure is been stable. Denies any chest pain, no cough, not bringing up any phlegm. No hemoptysis. He remains on nitric on his old which was started yesterday, and Zosyn per ID service recommendations. So far all cultures remain negative. Biopsy of the right middle lobe showed organizing pneumonia. No malignancy. Fungal cultures have been negative, Diflucan has been discontinued. Quantiferon Gold TB test was negative. Histoplasma antibodies were elevated which could possibly be chronic. However transbronchial biopsy did not show evidence of a fungal elements, Histoplasma urine antigen pending. Patient remains on oral Lasix, and he is in negative net fluid balance, we significantly decreased his steroids and he is currently down to 10 mg of prednisone daily. He remains on nebulized bronchodilators. On 07/16/2021 patient seen in follow-up on selective care unit, is currently on 8 L of oxygen, and his pulse ox is 86-88%. Patient states he is dyspneic with conversation and exertion, but no acute distress, no worsening dyspnea. he was able to get a good night's sleep last night. Afebrile, vital signs have been stable. Follow-up chest x-ray today shows stable abnormal attenuation within the lungs, without change. Patient remains on Zosyn and Itraconazole. Today's labs have been reviewed white blood cell count is 13.1, hemoglobin is 11.2, platelet count is 604, sodium is 135, demonstrated electrolytes and renal profile are unremarkable. No new growth on cultures. Patient is complaining of increased ankle edema, he remains on oral Lasix 40 mg once daily. Lung sounds are diminished, no crackles auscultated, no wheezing. On 07/17/2021 patient seen in follow-up on selective care unit, he is breathing quite comfortably, he remains stable, although still requiring high flow oxygen at 8 L the pulse ox of 89%, he is afebrile, hemodynamically has been stable, no complaints of worsening dyspnea or cough. Patient has been afebrile, no new growth on the cultures, or bal. Patient received additional dose of IV Lasix yesterday. His ankle edema has improved. Remains on maintenance dose of Lasix 40 mg daily. He is on nebulized bronchodilators, and remains on Zosyn and Itraconazole. He is on prednisone 10 mg daily. No acute events overnight. His been very compliant with her incentive spirometer, he is achieving 2.5 L on the today. Objective - Vital Signs Vital signs: Vital Signs Temp 98.1 F 07/17/21 08:00 Pulse 98 07/17/21 12:10 Resp 18 07/17/21 08:00 BP 104/69 07/17/21 08:00 Pulse Ox 89 L 07/17/21 09:04 Intake & Output 07/16/21 07/17/21 07/17/21 18:59 06:59 18:59 Intake Total 960 440 720 Output Total 1400 950 700 Balance -440 -510 20 Weight 49.3 kg Intake: Intake, IV Titration 100 Amount Piperacillin-Tazobactam 3 100 .375 gm In Sodium Chloride 0.9% 100 ml @ 25 mls/hr IVPB Q8HR ON LICENSE OF [facility] Rx# :[id number] Oral 960 340 720 Output: Urine 1400 950 700 Other: # Voids 1 - Exam GENERAL EXAM: Alert, very pleasant, 56-year-old white female, on 8 L of oxygen pulse ox of 87-91%, comfortable in no apparent distress. HEAD: Normocephalic/atraumatic. EYES: Normal reaction of pupils, equal size. Conjunctiva pink, sclera white. NOSE: Clear with pink turbinates. THROAT: No erythema or exudates. NECK: No masses, no JVD, no thyroid enlargement, no adenopathy. CHEST: No chest wall deformity. Symmetrical expansion. LUNGS: Equal air entry with no crackles, wheeze, rhonchi or dullness. CVS: Regular rate and rhythm, normal S1 and S2, no gallops, no murmurs, no rubs ABDOMEN: Soft, nontender. No hepatosplenomegaly, normal bowel sounds, no guarding or rigidity. EXTREMITIES: No clubbing, no edema, no cyanosis, 2+ pulses and upper and lower extremities. MUSCULOSKELETAL: Muscle strength and tone normal. SPINE: No scoliosis or deformity SKIN: No rashes CENTRAL NERVOUS SYSTEM: Alert and oriented -3. No focal deficits, tone is normal in all 4 extremities. PSYCHIATRIC: Alert and oriented -3. Appropriate affect. Intact judgment and insight. - Labs CBC & Chem 7: 07/16/21 07:25 07/16/21 07:25 Labs: Abnormal Lab Results - Last 24 Hours (Table) 07/16/21 07/16/21 Range/Units 07:25 07:25 ESR 28 H (0-15) mm/hr C-Reactive Protein 8.9 H (<1.0) mg/dL Microbiology - Last 24 Hours (Table) 07/07/21 12:43 Fungal Culture - Preliminary Bronchial Washings - Right Assessment and Plan Plan: Assessment: #1. Bilateral upper lobe pneumonia status post recent bronchoscopy with BAL on 06/24/2021, with negative BAL and viral cultures, COVID-19 PCR was negative. Patient is status post repeat bronchoscopy with BAL on 07/07/2021 with transbronchial biopsies of the right middle lobe, brushings and BAL of the right middle lobe, transbronchial biopsies were consistent with organizing pneumonia, BAL cultures negative thus far. MRSA and fungal cultures are negative, Aspergillus negative. Diflucan has been discontinued, Itraconazole was added in view of elevated histoplasma antibodies and this was identified by complement fixation. Nevertheless the character presentation is atypical and this could be related to an old histoplasma exposure. 5 to tell has been negative, Aspergillus antibodies have been negative #2. Acute hypoxic respiratory failure secondary to the above currently on 10 L of oxygen #3. Recent hospitalization for acute exacerbation of COPD, and bilateral pneumonia, discharged home on 06/25/2021 to complete 2 week course of Augmentin #4. Bullous emphysema/COPD, on home oxygen since the recent hospitalization on 4 L #5. Increased swelling in bilateral lower extremities, possibly related to acute exacerbation of systolic CHF #6. Prior history of myocardial infarction #7. History of paroxysmal A. fib status post AICD and pacemaker insertion #8. CAD with prior stenting #9. History of CHF with systolic dysfunction #10. Ischemic cardiomyopathy with EF of 30-35% #11. History of laparoscopic bilateral inguinal hernia repair #12. 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 History of anxiety Plan: Clinically patient remains about the same, No worsening dyspnea But still requiring high flow oxygen currently at 8 L Continue current treatment No new growth on the cultures Vital signs have been stable Continue bridging incentive spirometer Continue with once daily dose of IV Lasix Once patient's FiO2 requirement is down to 5 L or less may consider discharge home I have personally seen and examined the patient and reviewed the documentation. I performed a joint evaluation with the nurse practitioner in this evaluation wa s done more than 20 minutes. I fully agree with the documentation above and the plan of care. Time with Patient: Less than 30
--- NOTE | 2021-07-17 15:59 | P.PN ---
Subjective Progress Note Date: 07/17/21 Principal diagnosis: Pneumonia Patient is a 56-year-old male who was recently admitted to the hospital and was diagnosed with pneumonia status post bronchoscopy and those culture were negative patient was subsequently discharged home on oral antibiotics and currently admitted to the hospital within 72 hours with a fever. Patient repeat CT did shows progression of his pneumonia and the patient is status post bronchoscopy biopsy and lavage completed 07/07/2021 On today's evaluation that is 07/17/2021, the patient remains to be afebrile, the patient is breathing more comfortably, patient is is currently requiring 8 L nasal canal oxygen, the patient denies having any chest pain,no worsening cough or sputum production, no abdominal pain and no diarrhea Objective - Vital Signs Vital signs: Vital Signs Temp 98.1 F 07/17/21 08:00 Pulse 98 07/17/21 12:10 Resp 18 07/17/21 08:00 BP 104/69 07/17/21 08:00 Pulse Ox 89 L 07/17/21 09:04 Intake & Output 07/16/21 07/17/21 07/17/21 18:59 06:59 18:59 Intake Total 960 440 720 Output Total 1400 950 700 Balance -440 -510 20 Weight 49.3 kg Intake: Intake, IV Titration 100 Amount Piperacillin-Tazobactam 3 100 .375 gm In Sodium Chloride 0.9% 100 ml @ 25 mls/hr IVPB Q8HR [facility] Rx# :[id number] Oral 960 340 720 Output: Urine 1400 950 700 Other: # Voids 1 - Exam GENERAL DESCRIPTION: Middle-aged male lying in bed in no distress RESPIRATORY SYSTEM: Unlabored breathing , decreased breath sounds at bases HEART: S1 S2 regular rate and rhythm , ABDOMEN: Soft , no tenderness EXTREMITIES: No edema feet - Labs CBC & Chem 7: 07/16/21 07:25 07/16/21 07:25 Labs: Abnormal Lab Results - Last 24 Hours (Table) 07/16/21 07/16/21 Range/Units 07:25 07:25 ESR 28 H (0-15) mm/hr C-Reactive Protein 8.9 H (<1.0) mg/dL Microbiology - Last 24 Hours (Table) 07/07/21 12:43 Fungal Culture - Preliminary Bronchial Washings - Right Assessment and Plan (1) Febrile illness, acute Current Visit: Yes Status: Acute Code(s): R50.9 - FEVER, UNSPECIFIED SNOMED Code(s): 670322062 (2) Pneumonia Current Visit: Yes Status: Acute Code(s): J18.9 - PNEUMONIA, UNSPECIFIED ORG ANISM SNOMED Code(s): 615012271 Plan: 1patient presented to hospital with a fever increasing shortness of breath and this patient was recently diagnosed with the right-sided pneumonia status post bronchoscopy and was culture showed Jacey likely colonizer, failing outpatient oral antibiotic therapy. 2sputum cultures as well as urine for Legionella antigen has been negative [address] of the chest did show progressive pulmonary consolidation, likely representing progressive pneumonia, patient is status post bronchoscopy biopsy and lavage and cultures are so far negative 4-patient is currently being treated with the Zosyn and itraconazole in view of clinical response, itraconazole level has been ordered this morning and is currently pending Time with Patient: Less than 30
[2021-07-17] MEDS: HYDROCORTISONE SUCCINATE 100 MG/2 ML VIAL IV SCH (20:19)
[2021-07-17] MEDS: diphenhydrAMINE 50 MG/ML 1 ML VIAL IVP SCH (20:19)
[2021-07-17] MEDS: SODIUM CHLORIDE 0.9% 250 ML IV SCH ×2 (20:20→23:27)
[2021-07-17] MEDS: carvediloL 3.125 MG TAB PO SCH (20:21)
[2021-07-17] MEDS: DEXTROSE 5% IV SCH ×2 (21:09)
[2021-07-17] MEDS: AMPHOTERICIN B LIPOSOME IV SCH ×2 (21:09)
[2021-07-17] MEDS: WATER IV SCH ×2 (21:09)
[2021-07-18] MEDS: ACETAMINOPHEN TAB 325 MG TAB PO SCH ×5 (06:26→23:07)
[2021-07-18 08:44] LABS: Anisocytosis Slight; Basophils % (A) 0 %; Eosinophils # (A) 0.3 k/uL (0-0.7); Eosinophils % (A) 2 %; HCT 36.4 % (39.0-53.0); Hypochromasia Marked; Lymphocytes # (A) 1.5 k/uL (1.0-4.8); Lymphocytes % (A) 12 %; MCH 26.9 pg (25.0-35.0); MCHC 30.2 g/dL (31.0-37.0); MCV 89.3 fL (80.0-100.0); Mean Platelet Volume 7.8; Monocytes # (A) 0.4 k/uL (0-1.0); Monocytes % (A) 3 %; Neutrophils # (A) 10.2 k/uL (1.3-7.7); Neutrophils % (A) 81 %; Platelet Count 601 k/uL (150-450); RBC 4.08 m/uL (4.30-5.90); RDW 17.1 % (11.5-15.5); WBC 12.6 k/uL (3.8-10.6)
[2021-07-18 08:57] LABS: ALT 73 U/L (4-49); AST 33 U/L (17-59); African American GFR (CKD) >90 (>60 ml/min/1.73 sqM); Albumin 2.6 g/dL (3.5-5.0); Alkaline Phosphatase 170 U/L (38-126); Anion Gap 6 mmol/L; Bilirubin, Delta 0.3 mg/dL (0.0-0.2); Bilirubin,Unconjugated 0.2 mg/dL (0.0-1.1); Blood Urea Nitrogen 18 mg/dL (9-20); Calcium 8.7 mg/dL (8.4-10.2); Carbon Dioxide 28 mmol/L (22-30); Chloride 103 mmol/L (98-107); Glucose 143 mg/dL (74-99); Non-African American GFR(CKD) >90 (>60 ml/min/1.73 sqM); Potassium 4.2 mmol/L (3.5-5.1); Sodium 137 mmol/L (137-145); Total Bilirubin 0.5 mg/dL (0.2-1.3); Total Protein 6.2 g/dL (6.3-8.2)
[2021-07-18] MEDS: SYMBICORT 80-4.5 MCG INHALER INHALATION SCH (09:06)
[2021-07-18] MEDS: IPRATROPIUM-ALBUTEROL 3 ML NEB INHALATION PRN ×2 (09:06→12:39)
[2021-07-18] MEDS: IPRATROPIUM 0.5 MG/2.5 ML NEBU INHALATION SCH ×4 (09:09→20:02)
[2021-07-18] MEDS: DOCUSATE 100 MG CAP PO SCH ×2 (09:37→19:39)
[2021-07-18] MEDS: polyethylene glycoL 3350 17 GM POWD.PACK PO SCH (09:38)
[2021-07-18] MEDS: HEPARIN SODIUM,PORCINE/PF 5,000 UNIT/0.5 ML SYRINGE SQ SCH ×2 (09:46→17:45)
[2021-07-18] MEDS: NICOTINE 21MG/24HR PATCH TRANSDERM SCH (09:47)
[2021-07-18] MEDS: FUROSEMIDE 10 MG/ML 4 ML VIAL IV SCH (09:47)
[2021-07-18] MEDS: ITRACONAZOLE 100 MG CAP PO SCH ×3 (09:48→20:59)
[2021-07-18] MEDS: ASPIRIN 81 MG PO SCH (09:48)
[2021-07-18] MEDS: predniSONE 10 MG TAB PO SCH (09:48)
--- NOTE | 2021-07-18 10:13 | P.PN ---
Subjective Progress Note Date: 07/18/21 Pt improving from 8L to 6L HFNC. Feels much better. No more fevers since 07/06. On itraconazole, amphotericin B. Gen: awake, alert HEENT: normocephalic, atraumatic, good hearing acuity, moist mucous membranes Resp: impaired air exchange, breathing comfortably with no accessory muscle use CVS: good distal perfusion x 4, GI: soft, NTTP, ND : no SPT, no CVAT, sung catheter not present MSK: no pitting edema, no clubbing Neuro: non-focal, moving all extremities Psych: cooperative, euthymic mood Sepsis with acute on chronic hypoxemic respiratory failure COPD Exacerbation High likelihood of Fungal Pneumonia secondary to Histoplasma - itraconazole, amphotericin, prednisone - PICC line placed 07/03 - Pulm and ID recs - Blood cultures NGTD - Repeat Sputum Cx and AFB stain on 07/04, negative/NGTD - CrAg, galactomannan, [id number] negative - MRSA, HIV negative; Immunoglobulin G subgroup panel WNL - IgE level elevated - Histoplasma yeast CF Ab 1:16, mycel CF Ab 1:128; - Histoplasma immunodiffusion M/H precipitins are positive, this is 100% specific for acute active histoplasmosis, -oddly no granulomas seen on biopsy or hyphael elements seen on PAS, GMS stains - atypical histoplasma fungal presentation -Fungal Cx from 06/23, pending, will be updated 07/24 per Lab -Fungal Cx from 07/07, pending, will be updated 07/24 per Lab -blood histoplasma Ab pending result -urine histoplasma Ab + on 07/17 Acute exacerbation of systolic CHF with EF 30-35 % ASCAD - Oral Lasix - ASA, lipitor, BB - entresto on hold due to recent hypotension on last hospital stay. Patient plans on following up with his primary fitness attendant regarding this. Thrombocytosis - chronic at baseline - follow CBC Tobacco abuse - cessation - nicotine replacement if needed Underweight with BMI 18.2 - dietitian recs DVT prophylaxis: heparin Anticipated discharge: pending clinical course Anticipated discharge place: home Objective - Vital Signs Vital signs: Vital Signs Temp 97.9 F 07/18/21 04:00 Pulse 104 H 07/18/21 09:24 Resp 20 07/18/21 04:00 BP 140/90 07/18/21 04:00 Pulse Ox 93 L 07/18/21 09:09 Intake & Output 07/17/21 07/18/21 07/18/21 18:59 06:59 18:59 Intake Total 1200 240 Output Total 700 600 Balance 500 -600 240 Weight 50.7 kg Intake: Oral 1200 240 Output: Urine 700 600 Other: Voiding Method Bedside Commode Urinal # Voids 1 # Bowel Movements 1 - Labs CBC & Chem 7: 07/18/21 08:12 07/18/21 08:12 Labs: Abnormal Lab Results - Last 24 Hours (Table) 07/18/21 07/18/21 Range/Units 08:12 08:12 WBC 12.6 H (3.8-10.6) k/uL RBC 4.08 L (4.30-5.90) m/uL Hgb 11.0 L (13.0-17.5) gm/dL Hct 36.4 L (39.0-53.0) % MCHC 30.2 L (31.0-37.0) g/dL RDW 17.1 H (11.5-15.5) % Plt Count 601 H (150-450) k/uL Neutrophils # 10.2 H (1.3-7.7) k/uL Creatinine 0.46 L (0.66-1.25) mg/dL Glucose 143 H (74-99) mg/dL Delta Bilirubin 0.3 H (0.0-0.2) mg/dL ALT 73 H (4-49) U/L Alkaline Phosphatase 170 H (38-126) U/L Total Protein 6.2 L (6.3-8.2) g/dL Albumin 2.6 L (3.5-5.0) g/dL Microbiology - Last 24 Hours (Table) 07/07/21 12:43 Fungal Culture - Preliminary Bronchial Washings - Right
--- NOTE | 2021-07-18 13:35 | P.PN ---
Subjective Progress Note Date: 07/18/21 56-year-old male patient with known history of COPD, chronic smoker, CAD, paroxysmal A. fib status post pacemaker insertion, chronic CHF with systolic dysfunction, ischemic cardiomyopathy with EF of 30-35% with AICD placement, anxiety who was recently hospitalized for acute exacerbation of COPD, complicat ed with possible pneumonia. Patient's chest x-ray showed bilateral airspace disease, underlying emphysema. CT angiogram of the chest showed no evidence of pulmonary embolism, extensive bullous pulmonary emphysema, with extensive honeycombing infiltrate in the mid and upper lung hendricks. Patient was treated with a combination of Rocephin and Zithromax initially, however he continued to have intermittent febrile episodes and subsequently he was switched to Zosyn by infectious disease service. Patient ended up having bronchoalveolar lavage on 06/24/[address] Ulloa, and BAL cultures showed no growth other than Jacey albicans. A separate BAL cultures were taken from right upper lobe and left lower lobe, cytology was negative for diagnostic malignancy. BAL cultures and viral cultures were negative. Patient was clinically improving, after being switched over to Zosyn patient's fever pattern had improved, and subsequently he was discharged home on oral course of Augmentin, and we recommended at least 2 week treatment with Augmentin, completion of prednisone taper and patient was sent home on home oxygen at 4 L. Patient states he was discharged on a Tuesday, by Tuesday night he started having increased swelling in his lower extremities, he could hardly get his socks on. At the same time he started developing a fever. He states he picked up his antibiotics and was taking them, he denied any worsening shortness of breath, no cough, no phlegm production, no hemoptysis no chest pain. No swelling or tenderness in the bilateral calves. He came into the emergency department for reevaluation on 06/29/2021. His temperature on admission was 101.4F. Chest x-ray showed findings similar to the prior exam with bilateral airspace disease, increased interstitium and underlying emphysema. Admission labs showed white blood cell count of 14.3, hemoglobin 12.4, sodium is 133, the rest of electrolytes were unremarkable, B1 is 16 creatinine 0.55, proBNP was 1520, troponin was 0.017, AST was 46, ALT was 158, alk phos was 146, urinalysis showed no evidence of infection, patient tested negative for COVID 19. Patient was started on vancomycin for antibiotic coverage, and Zosyn. He was started on oral Lasix after a single dose of IV Lasix 40 mg. Currently ankle edema is improving, he is diuresing, he continues on the bronchodilators. On 07/01/2021 patient seen in follow-up on medical surgical floor, he states he is breathing comfortably, he is currently on 2 L of oxygen his pulse ox is 91- 93%. His ankle swelling is significantly down, this morning patient was able to produce a sputum specimen which was sent for culture, follow-up chest x-ray today showing confluent densities in the upper lobes, and worsening pneumonia. Patient currently remains on Zosyn and vancomycin. No fever or chills overnight. White blood cell count is 10.6, hemoglobin is 10.9, sodium is 131, the rest of the electrolytes and renal profile were unremarkable, LFTs are improved. No chest discomfort, no hemoptysis. Patient continues on nebulized bronchodilators, he is on oral dose of Lasix 40 mg daily. On 07/02/2021 patient seen in follow-up on medical surgical floor. He is still having intermittent fevers, T-max in last 24 hours 101.8F, patient was initially covered with a combination of Zosyn and vancomycin, ID service recommended discontinuing vancomycin and patient is currently on Zosyn and Levaquin has been added. Urine for Legionella antigen will be sent. Cultures reviewed, blood cultures have been negative, sputum Gram stain showing rare PMNs, few gram-positive cocci in clusters, few budding yeast. BAL cultures showed Jacey albicans. Today's labs reviewed, with blood cell count 12.3, hemoglobin is 9.3, sodium is 1:0, potassium is 4.3, B1 17 creatinine 0.57, CRP is 20.8, and pro-calcitonin level was 0.56. No worsening cough or hemoptysis, no chest pain, no altered mentation, hemodynamically has been stable, he has been tolerating ambulation in the room. Lower extremity swelling has significantly improved, patient remains on once daily dose of Lasix. 07/03/2021 patient seen in follow-up. He states there is no worsening dyspnea, occasional cough, no significant phlegm production, no chest discomfort, he remains on 2 L of oxygen the pulse ox of 90-93%, his fever pattern has improved in the last 24 hours, although the patient still has persistent low-grade fevers with a T-max of 100.6F. Room air pulse ox is 87%, and patient is very frustr ated this morning as he was placed on the schedule for possible bronchoscopy with BAL without proper communication with him. Dr. Lundberg is at the bedside, and patient clinically has not worsened, he is currently on a combination of Levaquin and Zosyn, there has been no growth on BAL cultures from last admission, or blood or sputum culture, nasal swab for MRSA was negative. Follow blood cultures show no growth. Legionella urine antigen was negative. Yesterday CT of the chest was completed showing progressive chronic consolidation, likely representing progressive pneumonia, enlarged lymph nodes likely reactive. On 07/06/2021 patient seen in follow-up. Patient continues to have intermittent fevers, at 101.8F at noon today. Currently remains on Unasyn and Diflucan, no new growth on cultures including BAL from 06/23/2021. Clinically he appears to be breathing fairly comfortably, no worsening cough or dyspnea, does have exertional dyspnea, no chest discomfort. Patient is on 2 L, his pulse ox of 92- 96%. His chest x-ray from yesterday showed persistent suprahilar and upper lobe airspace infiltrate with underlying cystic changes. Today's labs have been reviewed, with blood cell count is 15.6, hemoglobin is 9.4, platelet count is 592, sodium is 133, potassium is 4.3, chloride is 95, BUN is 16, creatinine 0.6, Legionella urine antigen was negative. On 07/10/2021 patient seen in follow-up. Patient is mildly dyspneic at rest, but states that his breathing is a little better, he is able to bring up some phlegm, steroids were added on yesterday, and patient continues on empiric antibiotics, so far he is BAL cultures have shown no growth other than Jacey. Patient remains on empiric antibiotics in the form of Zosyn, and doxycycline and Diflucan. Vancomycin has been discontinued. Has right middle lobe transbronchial biopsies showed bronchial mucosa and peribronchial alveolar tissue with features of organizing pneumonia and respiratory bronchiolitis, negative for neoplasm. Patient continues on amiodarone nebulized bronchodilators. His T-max in the last 24 hours was 99.8F. Follow-up pro- calcitonin level is pending today. fever pattern has improved in the last 24-48 hours. Today's labs have been reviewed white blood cell count is 9.2, hemoglobin is 9.1, platelet count is 672, electrolytes are within normal limits, BUN is 19 creatinine 0.37. She still has significant exertional dyspnea. But has been insisting on walking to the bathroom. Results of the biopsies and cultures have been discussed with the patient, current treatment plan was discussed. On 07/15/2021 patient seen in follow-up. Patient is awake and alert, in no acute distress. Patient is awake and alert, complains of exertional dyspnea, desats were talking, and walking to the bathroom, he is currently on 10 L of oxygen pulse ox is 91%, slightly tachycardic, blood pressure is been stable. Denies any chest pain, no cough, not bringing up any phlegm. No hemoptysis. He remains on nitric on his old which was started yesterday, and Zosyn per ID service recommendations. So far all cultures remain negative. Biopsy of the right middle lobe showed organizing pneumonia. No malignancy. Fungal cultures have been negative, Diflucan has been discontinued. Quantiferon Gold TB test was negative. Histoplasma antibodies were elevated which could possibly be chronic. However transbronchial biopsy did not show evidence of a fungal elements, Histoplasma urine antigen pending. Patient remains on oral Lasix, and he is in negative net fluid balance, we significantly decreased his steroids and he is currently down to 10 mg of prednisone daily. He remains on nebulized bronchodilators. On 07/16/2021 patient seen in follow-up on selective care unit, is currently on 8 L of oxygen, and his pulse ox is 86-88%. Patient states he is dyspneic with conversation and exertion, but no acute distress, no worsening dyspnea. he was able to get a good night's sleep last night. Afebrile, vital signs have been stable. Follow-up chest x-ray today shows stable abnormal attenuation within the lungs, without change. Patient remains on Zosyn and Itraconazole. Today's labs have been reviewed white blood cell count is 13.1, hemoglobin is 11.2, platelet count is 604, sodium is 135, demonstrated electrolytes and renal profile are unremarkable. No new growth on cultures. Patient is complaining of increased ankle edema, he remains on oral Lasix 40 mg once daily. Lung sounds are diminished, no crackles auscultated, no wheezing. On 07/17/2021 patient seen in follow-up on selective care unit, he is breathing quite comfortably, he remains stable, although still requiring high flow oxygen at 8 L the pulse ox of 89%, he is afebrile, hemodynamically has been stable, no complaints of worsening dyspnea or cough. Patient has been afebrile, no new growth on the cultures, or bal. Patient received additional dose of IV Lasix yesterday. His ankle edema has improved. Remains on maintenance dose of Lasix 40 mg daily. He is on nebulized bronchodilators, and remains on Zosyn and Itraconazole. He is on prednisone 10 mg daily. No acute events overnight. His been very compliant with her incentive spirometer, he is achieving 2.5 L on the today. 07/18/2021, the patient tested positive for Histoplasma urine antigen and the patient was started on IV amphotericin B. Noted the patient was already feeling better on the terconazole. He is currently on 8 L of oxygen by nasal cannula. Feeling well. Maintaining his pulse ox above 90%. Afebrile. White cell count of 12.6 with a hemoglobin 11.0 and a platelet count of 601. The rest of the blood work and electrodes are all stable. IVs on the case and the patient is currently on IV amphotericin B. The patient is also on prednisone 10 mg by mouth daily as part of his burst taper. He was on IV Lasix and he'll be switc hed to oral Lasix as of tomorrow. No major edema lower extremity is bilaterally. Using incentive spirometer. Objective - Vital Signs Vital signs: Vital Signs Temp 97.9 F 07/18/21 12:00 Pulse 106 H 07/18/21 12:52 Resp 18 07/18/21 12:00 BP 111/76 07/18/21 12:00 Pulse Ox 89 L 07/18/21 12:00 Intake & Output 07/17/21 07/18/21 07/18/21 18:59 06:59 18:59 Intake Total 1200 690 Output Total 700 600 950 Balance 500 -600 -260 Weight 50.7 kg Intake: Oral 1200 690 Output: Urine 700 600 950 Other: Voiding Method Bedside Commode Urinal # Voids 1 # Bowel Movements 1 1 - Exam GENERAL EXAM: Alert, very pleasant, 56-year-old white female, on 8 L of oxygen pulse ox of 87-91%, comfortable in no apparent distress. HEAD: Normocephalic/atraumatic. EYES: Normal reaction of pupils, equal size. Conjunctiva pink, sclera white. NOSE: Clear with pink turbinates. THROAT: No erythema or exudates. NECK: No masses, no JVD, no thyroid enlargement, no adenopathy. CHEST: No chest wall deformity. Symmetrical expansion. LUNGS: Equal air entry with no crackles, wheeze, rhonchi or dullness. CVS: Regular rate and rhythm, normal S1 and S2, no gallops, no murmurs, no rubs ABDOMEN: Soft, nontender. No hepatosplenomegaly, normal bowel sounds, no guarding or rigidity. EXTREMITIES: No clubbing, no edema, no cyanosis, 2+ pulses and upper and lower extremities. MUSCULOSKELETAL: Muscle strength and tone normal. SPINE: No scoliosis or deformity SKIN: No rashes CENTRAL NERVOUS SYSTEM: Alert and oriented -3. No focal deficits, tone is normal in all 4 extremities. PSYCHIATRIC: Alert and oriented -3. Appropriate affect. Intact judgment and insight. - Labs CBC & Chem 7: 07/18/21 08:12 07/18/21 08:12 Labs: Abnormal Lab Results - Last 24 Hours (Table) 07/18/21 07/18/21 Range/Units 08:12 08:12 WBC 12.6 H (3.8-10.6) k/uL RBC 4.08 L (4.30-5.90) m/uL Hgb 11.0 L (13.0-17.5) gm/dL Hct 36.4 L (39.0-53.0) % MCHC 30.2 L (31.0-37.0) g/dL RDW 17.1 H (11.5-15.5) % Plt Count 601 H (150-450) k/uL Neutrophils # 10.2 H (1.3-7.7) k/uL Creatinine 0.46 L (0.66-1.25) mg/dL Glucose 143 H (74-99) mg/dL Delta Bilirubin 0.3 H (0.0-0.2) mg/dL ALT 73 H (4-49) U/L Alkaline Phosphatase 170 H (38-126) U/L Total Protein 6.2 L (6.3-8.2) g/dL Albumin 2.6 L (3.5-5.0) g/dL Microbiology - Last 24 Hours (Table) 07/07/21 12:43 Fungal Culture - Preliminary Bronchial Washings - Right Assessment and Plan Plan: Assessment: #1. Histoplasma pneumonia with upper lobe predominance. The patient had bilateral upper lobe pneumonia status post recent bronchoscopy with BAL on 06/24/2021, with negative BAL and viral cultures, COVID-19 PCR was negative. Patient is status post repeat bronchoscopy with BAL on 07/07/2021 with transbronchial biopsies of the right middle lobe, brushings and BAL of the right middle lobe, transbronchial biopsies were consistent with organizing pneumonia, BAL cultures negative thus far. Meanwhile, the patient had positive histoplasma antibody titers. Histoplasma urine antigen came back positive. Initially was started on itraconazole and currently is on amphotericin B. He is doing well. #2. Acute hypoxic respiratory failure secondary to the above currently on 8 L of oxygen #3. Recent hospitalization for acute exacerbation of COPD, and bilateral pneumonia, discharged home on 06/25/2021 to complete 2 week course of Augmentin #4. Bullous emphysema/COPD, on home oxygen since the recent hospitalization on 4 L #5. Increased swelling in bilateral lower extremities, possibly related to acute exacerbation of systolic CHF #6. Prior history of myocardial infarction #7. History of paroxysmal A. fib status post AICD and pacemaker insertion #8. CAD with prior stenting #9. History of CHF with systolic dysfunction #10. Ischemic cardiomyopathy with EF of 30-35% #11. History of laparoscopic bilateral inguinal hernia repair #12. 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 History of anxiety Plan: Switch this patient oral Lasix Antifungal for IV Wean down FiO2 as tolerated currently on 8 L Vital signs have been stable Continue bridging incentive spirometer We'll continue to follow.
[2021-07-18] MEDS: NON FORMULARY DRUG (Buprenorphine Hcl/Naloxone Hcl [Suboxone 8 Mg-2 Mg Sl Film] 1 EACH Fil SUBLINGUAL SCH (17:29)
[2021-07-18] MEDS: LACTOBACILLUS ACIDOPH & BULGAR 1 EACH PACKET PO SCH (17:45)
[2021-07-18] MEDS: diphenhydrAMINE 50 MG/ML 1 ML VIAL IVP SCH (19:38)
[2021-07-18] MEDS: HYDROCORTISONE SUCCINATE 100 MG/2 ML VIAL IV SCH (19:38)
[2021-07-18] MEDS: carvediloL 3.125 MG TAB PO SCH (19:39)
[2021-07-18] MEDS: SODIUM CHLORIDE 0.9% 250 ML IV SCH ×2 (19:39→23:11)
[2021-07-18] MEDS: AMPHOTERICIN B LIPOSOME IV SCH ×2 (20:55)
[2021-07-18] MEDS: DEXTROSE 5% IV SCH ×2 (20:55)
[2021-07-18] MEDS: WATER IV SCH ×2 (20:55)
[2021-07-18] MEDS: ALPRAZolam 0.5 MG TAB PO PRN (23:07)
--- NOTE | 2021-07-18 23:14 | P.PN ---
Subjective Progress Note Date: 07/18/21 Principal diagnosis: Pneumonia Patient is a 56-year-old male who was recently admitted to the hospital and was diagnosed with pneumonia status post bronchoscopy and those culture were negative patient was subsequently discharged home on oral antibiotics and currently admitted to the hospital within 72 hours with a fever. Patient repeat CT did shows progression of his pneumonia and the patient is status post bronchoscopy biopsy and lavage completed 07/07/2021, patient histoplasma urine antigen was reported positive on 07/17/2021 On today's evaluation that is 07/18/2021, the patient denies any fever or chills, the patient is breathing slightly comfortably still requiring 6-8 L of nasal oxygen, the patient denies chest pain denies any worsening cough or sputum production no nausea no vomiting no abdominal pain and no diarrhea Objective - Vital Signs Vital signs: Vital Signs Temp 97.9 F 07/18/21 12:00 Pulse 109 H 07/18/21 13:44 Resp 20 07/18/21 13:44 BP 111/76 07/18/21 12:00 Pulse Ox 89 L 07/18/21 12:00 Intake & Output 07/17/21 07/18/21 07/18/21 18:59 06:59 18:59 Intake Total 1200 690 Output Total 700 600 950 Balance 500 -600 -260 Weight 50.7 kg Intake: Oral 1200 690 Output: Urine 700 600 950 Other: Voiding Method Bedside Commode Bedside Commode Urinal Urinal # Voids 1 # Bowel Movements 1 1 - Exam GENERAL DESCRIPTION: Middle-aged male lying in bed in no distress RESPIRATORY SYSTEM: Unlabored breathing , decreased breath sounds at bases HEART: S1 S2 regular rate and rhythm , ABDOMEN: Soft , no tenderness EXTREMITIES: No edema feet - Labs CBC & Chem 7: 07/18/21 08:12 07/18/21 08:12 Labs: Abnormal Lab Results - Last 24 Hours (Table) 07/18/21 07/18/21 Range/Units 08:12 08:12 WBC 12.6 H (3.8-10.6) k/uL RBC 4.08 L (4.30-5.90) m/uL Hgb 11.0 L (13.0-17.5) gm/dL Hct 36.4 L (39.0-53.0) % MCHC 30.2 L (31.0-37.0) g/dL RDW 17.1 H (11.5-15.5) % Plt Count 601 H (150-450) k/uL Neutrophils # 10.2 H (1.3-7.7) k/uL Creatinine 0.46 L (0.66-1.25) mg/dL Glucose 143 H (74-99) mg/dL Delta Bilirubin 0.3 H (0.0-0.2) mg/dL ALT 73 H (4-49) U/L Alkaline Phosphatase 170 H (38-126) U/L Total Protein 6.2 L (6.3-8.2) g/dL Albumin 2.6 L (3.5-5.0) g/dL Microbiology - Last 24 Hours (Table) 07/07/21 12:43 Fungal Culture - Preliminary Bronchial Washings - Right Assessment and Plan (1) Febrile illness, acute Current Visit: Yes Status: Acute Code(s): R50.9 - FEVER, UNSPECIFIED SNOMED Code(s): 520783595 (2) Pneumonia Current Visit: Yes Status: Acute Code(s): J18.9 - PNEUMONIA, UNSPECIFIED ORGANISM SNOMED Code(s): 489064155 Plan: 1patient presented to hospital with a fever increasing shortness of breath and this patient was recently diagnosed with the right-sided pneumonia status post bronchoscopy and was culture showed Jacey likely colonizer, failing outpatient oral antibiotic therapy. 2sputum cultures as well as urine for Legionella antigen has been negative [address] of the chest did show progressive pulmonary consolidation, likely representing progressive pneumonia, patient is status post bronchoscopy biopsy and lavage and cultures are so far negative 4-patient urine histoplasma antigen came back positive concerning for histoplasma infection in this patient who did have extensive pneumonia, liposomal amphotericin B has been admitted in addition to the itraconazole kidney function will monitor closely, prognosis remains to be guarded, discussed with pulmonary and admitting team Time with Patient: Greater than 30
[2021-07-19] MEDS: SYMBICORT 80-4.5 MCG INHALER INHALATION SCH ×3 (04:22→20:38)
[2021-07-19] MEDS: ACETAMINOPHEN TAB 325 MG TAB PO SCH (05:33)
--- NOTE | 2021-07-19 07:20 | XR ---
EXAMINATION TYPE: XR chest 1V DATE OF EXAM: 07/19/2021 CLINICAL HISTORY: Difficulty breathing and fungal pneumonia progress study. TECHNIQUE: Single AP portable upright view of the chest is obtained. COMPARISON: Chest x-ray from 3 days earlier and older studies. FINDINGS: Cardiac silhouette size stable and within normal limits with single lead pacemaker/defibri llator. Stable right-sided PICC line. Osseous structures are intact. Chronic parenchymal changes bila terally with right greater than left upper lung increased opacities. IMPRESSION: Chronic changes with persistent bilateral upper lung opacities could reflect areas of acu te infiltrate and/or scarring. No significant change from most recent x-ray.
[2021-07-19] MEDS: HEPARIN SODIUM,PORCINE/PF 5,000 UNIT/0.5 ML SYRINGE SQ SCH ×4 (08:26→23:26)
[2021-07-19] MEDS: FUROSEMIDE 40 MG TAB PO SCH (08:26)
[2021-07-19] MEDS: NICOTINE 21MG/24HR PATCH TRANSDERM SCH ×2 (08:26→16:11)
[2021-07-19] MEDS: ITRACONAZOLE 100 MG CAP PO SCH ×3 (08:27→21:05)
[2021-07-19] MEDS: ASPIRIN 81 MG PO SCH (08:27)
[2021-07-19] MEDS: predniSONE 10 MG TAB PO SCH (08:27)
[2021-07-19] MEDS: LACTOBACILLUS ACIDOPH & BULGAR 1 EACH PACKET PO SCH (08:27)
[2021-07-19] MEDS: DOCUSATE 100 MG CAP PO SCH ×3 (08:28→21:14)
[2021-07-19] MEDS: polyethylene glycoL 3350 17 GM POWD.PACK PO SCH (08:28)
[2021-07-19] MEDS: NON FORMULARY DRUG (Buprenorphine Hcl/Naloxone Hcl [Suboxone 8 Mg-2 Mg Sl Film] 1 EACH Fil SUBLINGUAL SCH (08:28)
[2021-07-19] MEDS: IPRATROPIUM-ALBUTEROL 3 ML NEB INHALATION PRN ×2 (08:52→16:11)
[2021-07-19] MEDS: IPRATROPIUM 0.5 MG/2.5 ML NEBU INHALATION SCH ×4 (08:52→20:38)
[2021-07-19] MEDS ORDERED: FUROSEMIDE 10 MG/ML 4 ML VIAL IV STA (09:51)
[2021-07-19] MEDS ORDERED: ACETAMINOPHEN TAB 325 MG TAB PO PRN (09:53)
--- NOTE | 2021-07-19 10:30 | P.PN ---
Subjective Progress Note Date: 07/19/21 Pt improving from 8L to 6L HFNC. Feels much better. No more fevers since 07/06. On itraconazole, amphotericin B. Gen: awake, alert HEENT: normocephalic, atraumatic, good hearing acuity, moist mucous membranes Resp: impaired air exchange, breathing comfortably with no accessory muscle use CVS: good distal perfusion x 4, GI: soft, NTTP, ND : no SPT, no CVAT, sung catheter not present MSK: no pitting edema, no clubbing Neuro: non-focal, moving all extremities Psych: cooperative, euthymic mood Sepsis with acute on chronic hypoxemic respiratory failure COPD Exacerbation Fungal Pneumonia secondary to Histoplasma - itraconazole, amphotericin, prednisone - PICC line placed 07/03 - Pulm and ID recs - Blood cultures NGTD - Repeat Sputum Cx and AFB stain on 07/04, negative/NGTD - CrAg, galactomannan, [id number] negative - MRSA, HIV negative; Immunoglobulin G subgroup panel WNL - IgE level elevated - Histoplasma yeast CF Ab 1:16, mycel CF Ab 1:128; - Histoplasma immunodiffusion M/H precipitins are positive, this is 100% specific for acute active histoplasmosis, -oddly no granulomas seen on biopsy or hyphael elements seen on PAS, GMS stains - atypical histoplasma fungal presentation -Fungal Cx from 06/23, pending, will be updated 07/24 per Lab -Fungal Cx from 07/07, pending, will be updated 07/24 per Lab -blood histoplasma Ab pending result -urine histoplasma Ab + on 07/17 Acute on chronic exacerbation of systolic CHF with EF 30-35 % ASCAD - Oral Lasix, with extra dose of lasix on 07/19 - ASA, lipitor, BB - entresto on hold due to recent hypotension on last hospital stay. 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 Thrombocytosis - chronic at baseline - follow CBC Tobacco abuse - cessation - nicotine replacement if needed Underweight with BMI 18.2 - dietitian recs DVT prophylaxis: heparin Anticipated discharge: pending clinical course Anticipated discharge place: home Objective - Vital Signs Vital signs: Vital Signs Temp 97.7 F 07/19/21 08:00 Pulse 96 07/19/21 09:05 Resp 20 07/19/21 08:00 BP 122/77 07/19/21 08:00 Pulse Ox 90 L 07/19/21 08:00 Intake & Output 07/18/21 07/19/21 07/19/21 18:59 06:59 18:59 Intake Total 690 420 Output Total 950 900 625 Balance -260 -900 -205 Weight 51.6 kg Intake: Oral 690 420 Output: Urine 950 900 625 Other: Voiding Method Bedside Commode Bedside Commode Urinal Urinal # Voids 1 # Bowel Movements 1 - Labs CBC & Chem 7: 07/18/21 08:12 07/18/21 08:12
--- NOTE | 2021-07-19 15:41 | P.PN ---
Subjective Progress Note Date: 07/19/21 56-year-old male patient with known history of COPD, chronic smoker, CAD, paroxysmal A. fib status post pacemaker insertion, chronic CHF with systolic dysfunction, ischemic cardiomyopathy with EF of 30-35% with AICD placement, anxiety who was recently hospitalized for acute exacerbation of COPD, complicat ed with possible pneumonia. Patient's chest x-ray showed bilateral airspace disease, underlying emphysema. CT angiogram of the chest showed no evidence of pulmonary embolism, extensive bullous pulmonary emphysema, with extensive honeycombing infiltrate in the mid and upper lung hendricks. Patient was treated with a combination of Rocephin and Zithromax initially, however he continued to have intermittent febrile episodes and subsequently he was switched to Zosyn by infectious disease service. Patient ended up having bronchoalveolar lavage on 06/24/[address] Ulloa, and BAL cultures showed no growth other than Jacey albicans. A separate BAL cultures were taken from right upper lobe and left lower lobe, cytology was negative for diagnostic malignancy. BAL cultures and viral cultures were negative. Patient was clinically improving, after being switched over to Zosyn patient's fever pattern had improved, and subsequently he was discharged home on oral course of Augmentin, and we recommended at least 2 week treatment with Augmentin, completion of prednisone taper and patient was sent home on home oxygen at 4 L. Patient states he was discharged on a Tuesday, by Tuesday night he started having increased swelling in his lower extremities, he could hardly get his socks on. At the same time he started developing a fever. He states he picked up his antibiotics and was taking them, he denied any worsening shortness of breath, no cough, no phlegm production, no hemoptysis no chest pain. No swelling or tenderness in the bilateral calves. He came into the emergency department for reevaluation on 06/29/2021. His temperature on admission was 101.4F. Chest x-ray showed findings similar to the prior exam with bilateral airspace disease, increased interstitium and underlying emphysema. Admission labs showed white blood cell count of 14.3, hemoglobin 12.4, sodium is 133, the rest of electrolytes were unremarkable, B1 is 16 creatinine 0.55, proBNP was 1520, troponin was 0.017, AST was 46, ALT was 158, alk phos was 146, urinalysis showed no evidence of infection, patient tested negative for COVID 19. Patient was started on vancomycin for antibiotic coverage, and Zosyn. He was started on oral Lasix after a single dose of IV Lasix 40 mg. Currently ankle edema is improving, he is diuresing, he continues on the bronchodilators. On 07/01/2021 patient seen in follow-up on medical surgical floor, he states he is breathing comfortably, he is currently on 2 L of oxygen his pulse ox is 91- 93%. His ankle swelling is significantly down, this morning patient was able to produce a sputum specimen which was sent for culture, follow-up chest x-ray today showing confluent densities in the upper lobes, and worsening pneumonia. Patient currently remains on Zosyn and vancomycin. No fever or chills overnight. White blood cell count is 10.6, hemoglobin is 10.9, sodium is 131, the rest of the electrolytes and renal profile were unremarkable, LFTs are improved. No chest discomfort, no hemoptysis. Patient continues on nebulized bronchodilators, he is on oral dose of Lasix 40 mg daily. On 07/02/2021 patient seen in follow-up on medical surgical floor. He is still having intermittent fevers, T-max in last 24 hours 101.8F, patient was initially covered with a combination of Zosyn and vancomycin, ID service recommended discontinuing vancomycin and patient is currently on Zosyn and Levaquin has been added. Urine for Legionella antigen will be sent. Cultures reviewed, blood cultures have been negative, sputum Gram stain showing rare PMNs, few gram-positive cocci in clusters, few budding yeast. BAL cultures showed Jacey albicans. Today's labs reviewed, with blood cell count 12.3, hemoglobin is 9.3, sodium is 1:0, potassium is 4.3, B1 17 creatinine 0.57, CRP is 20.8, and pro-calcitonin level was 0.56. No worsening cough or hemoptysis, no chest pain, no altered mentation, hemodynamically has been stable, he has been tolerating ambulation in the room. Lower extremity swelling has significantly improved, patient remains on once daily dose of Lasix. 07/03/2021 patient seen in follow-up. He states there is no worsening dyspnea, occasional cough, no significant phlegm production, no chest discomfort, he remains on 2 L of oxygen the pulse ox of 90-93%, his fever pattern has improved in the last 24 hours, although the patient still has persistent low-grade fevers with a T-max of 100.6F. Room air pulse ox is 87%, and patient is very frustr ated this morning as he was placed on the schedule for possible bronchoscopy with BAL without proper communication with him. Dr. Lundberg is at the bedside, and patient clinically has not worsened, he is currently on a combination of Levaquin and Zosyn, there has been no growth on BAL cultures from last admission, or blood or sputum culture, nasal swab for MRSA was negative. Follow blood cultures show no growth. Legionella urine antigen was negative. Yesterday CT of the chest was completed showing progressive chronic consolidation, likely representing progressive pneumonia, enlarged lymph nodes likely reactive. On 07/06/2021 patient seen in follow-up. Patient continues to have intermittent fevers, at 101.8F at noon today. Currently remains on Unasyn and Diflucan, no new growth on cultures including BAL from 06/23/2021. Clinically he appears to be breathing fairly comfortably, no worsening cough or dyspnea, does have exertional dyspnea, no chest discomfort. Patient is on 2 L, his pulse ox of 92- 96%. His chest x-ray from yesterday showed persistent suprahilar and upper lobe airspace infiltrate with underlying cystic changes. Today's labs have been reviewed, with blood cell count is 15.6, hemoglobin is 9.4, platelet count is 592, sodium is 133, potassium is 4.3, chloride is 95, BUN is 16, creatinine 0.6, Legionella urine antigen was negative. On 07/10/2021 patient seen in follow-up. Patient is mildly dyspneic at rest, but states that his breathing is a little better, he is able to bring up some phlegm, steroids were added on yesterday, and patient continues on empiric antibiotics, so far he is BAL cultures have shown no growth other than Jacey. Patient remains on empiric antibiotics in the form of Zosyn, and doxycycline and Diflucan. Vancomycin has been discontinued. Has right middle lobe transbronchial biopsies showed bronchial mucosa and peribronchial alveolar tissue with features of organizing pneumonia and respiratory bronchiolitis, negative for neoplasm. Patient continues on amiodarone nebulized bronchodilators. His T-max in the last 24 hours was 99.8F. Follow-up pro- calcitonin level is pending today. fever pattern has improved in the last 24-48 hours. Today's labs have been reviewed white blood cell count is 9.2, hemoglobin is 9.1, platelet count is 672, electrolytes are within normal limits, BUN is 19 creatinine 0.37. She still has significant exertional dyspnea. But has been insisting on walking to the bathroom. Results of the biopsies and cultures have been discussed with the patient, current treatment plan was discussed. On 07/15/2021 patient seen in follow-up. Patient is awake and alert, in no acute distress. Patient is awake and alert, complains of exertional dyspnea, desats were talking, and walking to the bathroom, he is currently on 10 L of oxygen pulse ox is 91%, slightly tachycardic, blood pressure is been stable. Denies any chest pain, no cough, not bringing up any phlegm. No hemoptysis. He remains on nitric on his old which was started yesterday, and Zosyn per ID service recommendations. So far all cultures remain negative. Biopsy of the right middle lobe showed organizing pneumonia. No malignancy. Fungal cultures have been negative, Diflucan has been discontinued. Quantiferon Gold TB test was negative. Histoplasma antibodies were elevated which could possibly be chronic. However transbronchial biopsy did not show evidence of a fungal elements, Histoplasma urine antigen pending. Patient remains on oral Lasix, and he is in negative net fluid balance, we significantly decreased his steroids and he is currently down to 10 mg of prednisone daily. He remains on nebulized bronchodilators. On 07/16/2021 patient seen in follow-up on selective care unit, is currently on 8 L of oxygen, and his pulse ox is 86-88%. Patient states he is dyspneic with conversation and exertion, but no acute distress, no worsening dyspnea. he was able to get a good night's sleep last night. Afebrile, vital signs have been stable. Follow-up chest x-ray today shows stable abnormal attenuation within the lungs, without change. Patient remains on Zosyn and Itraconazole. Today's labs have been reviewed white blood cell count is 13.1, hemoglobin is 11.2, platelet count is 604, sodium is 135, demonstrated electrolytes and renal profile are unremarkable. No new growth on cultures. Patient is complaining of increased ankle edema, he remains on oral Lasix 40 mg once daily. Lung sounds are diminished, no crackles auscultated, no wheezing. On 07/17/2021 patient seen in follow-up on selective care unit, he is breathing quite comfortably, he remains stable, although still requiring high flow oxygen at 8 L the pulse ox of 89%, he is afebrile, hemodynamically has been stable, no complaints of worsening dyspnea or cough. Patient has been afebrile, no new growth on the cultures, or bal. Patient received additional dose of IV Lasix yesterday. His ankle edema has improved. Remains on maintenance dose of Lasix 40 mg daily. He is on nebulized bronchodilators, and remains on Zosyn and Itraconazole. He is on prednisone 10 mg daily. No acute events overnight. His been very compliant with her incentive spirometer, he is achieving 2.5 L on the today. 07/18/2021, the patient tested positive for Histoplasma urine antigen and the patient was started on IV amphotericin B. Noted the patient was already feeling better on the terconazole. He is currently on 8 L of oxygen by nasal cannula. Feeling well. Maintaining his pulse ox above 90%. Afebrile. White cell count of 12.6 with a hemoglobin 11.0 and a platelet count of 601. The rest of the blood work and electrodes are all stable. IVs on the case and the patient is currently on IV amphotericin B. The patient is also on prednisone 10 mg by mouth daily as part of his burst taper. He was on IV Lasix and he'll be switc hed to oral Lasix as of tomorrow. No major edema lower extremity is bilaterally. Using incentive spirometer. 07/19/2021, the patient is doing well. No new complaints. Is currently on 6 L of O2 by nasal cannula. He remains on amphotericin B and itraconazole. No signs of any renal dysfunction be an BUN is 18 with a creatinine of 0.4 patient has otherwise a follow-up with a hemoglobin of 11.0. He is on oxygen and currently is on 6 L. No signs of any chest pain or shortness of breath. No fever or chills. No other significant events overnight. Clinically the patient reports that he is feeling improved and he is getting better on a daily basis. No signs of any fluid overload. Objective - Vital Signs Vital signs: Vital Signs Temp 98.6 F 07/19/21 12:00 Pulse 100 07/19/21 12:14 Resp 20 07/19/21 08:00 BP 114/75 07/19/21 12:00 Pulse Ox 93 L 07/19/21 12:00 Intake & Output 07/18/21 07/19/21 07/19/21 18:59 06:59 18:59 Intake Total 690 420 Output Total 950 900 625 Balance -260 -900 -205 Weight 51.6 kg Intake: Oral 690 420 Output: Urine 950 900 625 Other: Voiding Method Bedside Commode Bedside Commode Urinal Urinal # Voids 1 # Bowel Movements 1 1 - Exam GENERAL EXAM: Alert, very pleasant, 56-year-old white female, on 8 L of oxygen pulse ox of 87-91%, comfortable in no apparent distress. HEAD: Normocephalic/atraumatic. EYES: Normal reaction of pupils, equal size. Conjunctiva pink, sclera white. NOSE: Clear with pink turbinates. THROAT: No erythema or exudates. NECK: No masses, no JVD, no thyroid enlargement, no adenopathy. CHEST: No chest wall deformity. Symmetrical expansion. LUNGS: Equal air entry with no crackles, wheeze, rhonchi or dullness. CVS: Regular rate and rhythm, normal S1 and S2, no gallops, no murmurs, no rubs ABDOMEN: Soft, nontender. No hepatosplenomegaly, normal bowel sounds, no guarding or rigidity. EXTREMITIES: No clubbing, no edema, no cyanosis, 2+ pulses and upper and lower extremities. MUSCULOSKELETAL: Muscle strength and tone normal. SPINE: No scoliosis or deformity SKIN: No rashes CENTRAL NERVOUS SYSTEM: Alert and oriented -3. No focal deficits, tone is normal in all 4 extremities. PSYCHIATRIC: Alert and oriented -3. Appropriate affect. Intact judgment and insight. - Labs CBC & Chem 7: 07/18/21 08:12 07/18/21 08:12 Assessment and Plan Plan: Assessment: #1. Histoplasma pneumonia with upper lobe predominance. The patient had bilateral upper lobe pneumonia status post recent bronchoscopy with BAL on 06/24/2021, with negative BAL and viral cultures, COVID-19 PCR was negative. Patient is status post repeat bronchoscopy with BAL on 07/07/2021 with transbronchial biopsies of the right middle lobe, brushings and BAL of the right middle lobe, transbronchial biopsies were consistent with organizing pneumonia, BAL cultures negative thus far. Meanwhile, the patient had positive histoplasma antibody titers. Histoplasma urine antigen came back positive. Initially was started on itraconazole and currently is on amphotericin B. He is doing well. The patient continues to improve clinically #2. Acute hypoxic respiratory failure secondary to the above currently on 6 L of oxygen #3. Recent hospitalization for acute exacerbation of COPD, and bilateral pneumonia, discharged home on 06/25/2021 to complete 2 week course of Augmentin #4. Bullous emphysema/COPD, on home oxygen since the recent hospitalization on 4 L #5. Increased swelling in bilateral lower extremities, possibly related to acute exacerbation of systolic CHF #6. Prior history of myocardial infarction #7. History of paroxysmal A. fib status post AICD and pacemaker insertion #8. CAD with prior stenting #9. History of CHF with systolic dysfunction #10. Ischemic cardiomyopathy with EF of 30-35% #11. History of laparoscopic bilateral inguinal hernia repair #12. 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 History of anxiety Plan: Continue amphotericin B and itraconazole per IDs recommendation FiO2 has been weaned down to 6 L Watch for any signs of renal dysfunction along with amphotericin B Vital signs have been stable Continue bridging incentive spirometer We'll continue to follow.
[2021-07-19] MEDS: HYDROCORTISONE SUCCINATE 100 MG/2 ML VIAL IV SCH (21:04)
[2021-07-19] MEDS: diphenhydrAMINE 50 MG/ML 1 ML VIAL IVP SCH (21:04)
[2021-07-19] MEDS: carvediloL 3.125 MG TAB PO SCH (21:05)
[2021-07-19] MEDS: SODIUM CHLORIDE 0.9% 250 ML IV SCH (21:05)
[2021-07-19] MEDS: WATER IV SCH ×2 (21:47)
[2021-07-19] MEDS: DEXTROSE 5% IV SCH ×2 (21:47)
[2021-07-19] MEDS: AMPHOTERICIN B LIPOSOME IV SCH ×2 (21:47)
--- NOTE | 2021-07-19 23:08 | P.PN ---
Subjective Progress Note Date: 07/19/21 Principal diagnosis: Pneumonia Patient is a 56-year-old male who was recently admitted to the hospital and was diagnosed with pneumonia status post bronchoscopy and those culture were negative patient was subsequently discharged home on oral antibiotics and currently admitted to the hospital within 72 hours with a fever. Patient repeat CT did shows progression of his pneumonia and the patient is status post bronchoscopy biopsy and lavage completed 07/07/2021, patient histoplasma urine antigen was reported positive on 07/17/2021 On today's evaluation that is 07/19/2021, the patient remains to be afebrile, the patient is breathing slightly comfortably on 6 L of nasal oxygen, the patient denies chest pain denies any worsening cough or sputum production no nausea no vomiting no abdominal pain and no diarrhea Objective - Vital Signs Vital signs: Vital Signs Temp 97.7 F 07/19/21 08:00 Pulse 96 07/19/21 09:05 Resp 20 07/19/21 08:00 BP 122/77 07/19/21 08:00 Pulse Ox 90 L 07/19/21 08:00 Intake & Output 07/18/21 07/19/21 07/19/21 18:59 06:59 18:59 Intake Total 690 420 Output Total 950 900 625 Balance -260 -900 -205 Weight 51.6 kg Intake: Oral 690 420 Output: Urine 950 900 625 Other: Voiding Method Bedside Commode Bedside Commode Urinal Urinal # Voids 1 # Bowel Movements 1 - Exam GENERAL DESCRIPTION: Middle-aged male lying in bed in no distress RESPIRATORY SYSTEM: Unlabored breathing , decreased breath sounds at bases HEART: S1 S2 regular rate and rhythm , ABDOMEN: Soft , no tenderness EXTREMITIES: No edema feet - Labs CBC & Chem 7: 07/18/21 08:12 07/18/21 08:12 Assessment and Plan (1) Febrile illness, acute Current Visit: Yes Status: Acute Code(s): R50.9 - FEVER, UNSPECIFIED SNOMED Code(s): 792539835 (2) Pneumonia Current Visit: Yes Status: Acute Code(s): J18.9 - PNEUMONIA, UNSPECIFIED ORGANISM SNOMED Code(s): 313602176 Plan: 1patient presented to hospital with a fever increasing shortness of breath and this patient was recently diagnosed with the right-sided pneumonia status post bronchoscopy and was culture showed Jacey likely colonizer, failing outpatient oral antibiotic therapy. 2sputum cultures as well as urine for Legionella antigen has been negative [address] of the chest did show progressive pulmonary consolidation, likely representing progressive pneumonia, patient is status post bronchoscopy biopsy and lavage and cultures are so far negative 4-patient urine histoplasma antigen came back positive concerning for histoplasma infection in this patient who did have extensive pneumonia, liposomal amphotericin B has been admitted in addition to the itraconazole, kidney function will be monitored closely and plan is for amphotericin B only while inpatient and will be continued with itraconazole in the outpatient setting Time with Patient: Less than 30
[2021-07-19] MEDS: ALPRAZolam 0.5 MG TAB PO PRN (23:29)
[2021-07-19] MEDS: ACETAMINOPHEN TAB 325 MG TAB PO PRN (23:29)
[2021-07-20] MEDS: SODIUM CHLORIDE 0.9% 250 ML IV SCH ×2 (00:53→20:38)
[2021-07-20] MEDS: SYMBICORT 80-4.5 MCG INHALER INHALATION SCH ×2 (07:44→20:28)
[2021-07-20] MEDS: IPRATROPIUM-ALBUTEROL 3 ML NEB INHALATION PRN ×3 (07:44→15:35)
[2021-07-20] MEDS: IPRATROPIUM 0.5 MG/2.5 ML NEBU INHALATION SCH ×4 (07:48→20:28)
[2021-07-20 07:51] LABS: Anisocytosis Slight; Basophils # (A) 0.1 k/uL (0-0.2); Basophils % (A) 1 %; Eosinophils # (A) 0.2 k/uL (0-0.7); Eosinophils % (A) 1 %; HCT 36.1 % (39.0-53.0); Hypochromasia Marked; Lymphocytes # (A) 1.9 k/uL (1.0-4.8); Lymphocytes % (A) 13 %; MCH 27.4 pg (25.0-35.0); MCHC 30.6 g/dL (31.0-37.0); MCV 89.6 fL (80.0-100.0); Mean Platelet Volume 8.6; Monocytes # (A) 0.8 k/uL (0-1.0); Monocytes % (A) 5 %; Neutrophils # (A) 11.2 k/uL (1.3-7.7); Neutrophils % (A) 78 %; Platelet Count 578 k/uL (150-450); RBC 4.03 m/uL (4.30-5.90); RDW 17.4 % (11.5-15.5); WBC 14.4 k/uL (3.8-10.6)
[2021-07-20 08:05] LABS: African American GFR (CKD) >90 (>60 ml/min/1.73 sqM); Anion Gap 7 mmol/L; Blood Urea Nitrogen 27 mg/dL (9-20); C Reactive Protein 2.9 mg/dL (<1.0); Calcium 9.1 mg/dL (8.4-10.2); Carbon Dioxide 29 mmol/L (22-30); Chloride 100 mmol/L (98-107); Glucose 108 mg/dL (74-99); Non-African American GFR(CKD) >90 (>60 ml/min/1.73 sqM); Potassium 4.8 mmol/L (3.5-5.1); Sodium 136 mmol/L (137-145)
[2021-07-20] MEDS: polyethylene glycoL 3350 17 GM POWD.PACK PO SCH (08:36)
[2021-07-20] MEDS: NON FORMULARY DRUG (Buprenorphine Hcl/Naloxone Hcl [Suboxone 8 Mg-2 Mg Sl Film] 1 EACH Fil SUBLINGUAL SCH (08:36)
[2021-07-20] MEDS: ITRACONAZOLE 100 MG CAP PO SCH ×3 (08:40→20:36)
[2021-07-20] MEDS: DOCUSATE 100 MG CAP PO SCH ×2 (08:41→20:23)
[2021-07-20] MEDS: ASPIRIN 81 MG PO SCH (08:41)
[2021-07-20] MEDS: FUROSEMIDE 40 MG TAB PO SCH (08:41)
[2021-07-20] MEDS: predniSONE 10 MG TAB PO SCH (08:41)
[2021-07-20] MEDS: NICOTINE 21MG/24HR PATCH TRANSDERM SCH (08:41)
[2021-07-20] MEDS: HEPARIN SODIUM,PORCINE/PF 5,000 UNIT/0.5 ML SYRINGE SQ SCH ×2 (08:41→18:26)
[2021-07-20] MEDS: LACTOBACILLUS ACIDOPH & BULGAR 1 EACH PACKET PO SCH (08:42)
--- NOTE | 2021-07-20 15:19 | P.PN ---
Subjective Patient was examined at bedside not complaining of any new symptomatology. Continues to be on 6-7 L O2 saturating 90% and above. Case discussed with RN present at bedside. Objective - Vital Signs Vital signs: Vital Signs Temp 98 F 07/20/21 13:00 Pulse 118 H 07/20/21 13:00 Resp 24 07/20/21 13:00 BP 122/77 07/20/21 13:00 Pulse Ox 89 L 07/20/21 13:00 Intake & Output 07/19/21 07/20/21 07/20/21 18:59 06:59 18:59 Intake Total 420 1210 Output Total 4364 362 6423 Balance -128 -416 -840 Intake: Oral 420 1210 Output: Urine 6697 616 9248 Other: Voiding Method Bedside Commode Urinal # Voids 1 # Bowel Movements 1 - Exam Gen: awake, alert HEENT: normocephalic, atraumatic, good hearing acuity, moist mucous membranes Resp: impaired air exchange, breathing comfortably with no accessory muscle use - receiving breathing treatment. CVS: good distal perfusion x 4, GI: soft, NTTP, ND : no SPT, no CVAT, sung catheter not present MSK: no pitting edema, no clubbing Neuro: non-focal, moving all extremities Psych: cooperative, euthymic mood - Labs CBC & Chem 7: 07/20/21 06:50 07/20/21 06:50 Labs: Abnormal Lab Results - Last 24 Hours (Table) 07/20/21 07/20/21 Range/Units 06:50 06:50 WBC 14.4 H (3.8-10.6) k/uL RBC 4.03 L (4.30-5.90) m/uL Hgb 11.0 L (13.0-17.5) gm/dL Hct 36.1 L (39.0-53.0) % MCHC 30.6 L (31.0-37.0) g/dL RDW 17.4 H (11.5-15.5) % Plt Count 578 H (150-450) k/uL Neutrophils # 11.2 H (1.3-7.7) k/uL Sodium 136 L (137-145) mmol/L BUN 27 H (9-20) mg/dL Glucose 108 H (74-99) mg/dL C-Reactive Protein 2.9 H (<1.0) mg/dL Microbiology - Last 24 Hours (Table) 07/07/21 12:43 Acid Fast Bacilli Smear - Final Bronchial Washings - Right Acid Fast Bacilli Culture - Preliminary 07/06/21 11:53 Acid Fast Bacilli Smear - Final Sputum Acid Fast Bacilli Culture - Preliminary Assessment and Plan Assessment: Sepsis with acute on chronic hypoxemic respiratory failure COPD Exacerbation Fungal Pneumonia secondary to Histoplasma - itraconazole, amphotericin, prednisone - PICC line placed 07/03 - Blood cultures NGTD - Repeat Sputum Cx and AFB stain on 07/04, negative/NGTD - CrAg, galactomannan, [id number] negative - MRSA, HIV negative; Immunoglobulin G subgroup panel WNL - IgE level elevated - Histoplasma yeast CF Ab 1:16, mycel CF Ab 1:128; - Histoplasma immunodiffusion M/H precipitins are positive, this is 100% specific for acute active histoplasmosis, -oddly no granulomas seen on biopsy or hyphael elements seen on PAS, GMS stains - atypical histoplasma fungal presentation -Fungal Cx from 06/23, pending, will be updated 07/24 per Lab -Fungal Cx from 07/07, pending, will be updated 07/24 per Lab -blood histoplasma Ab pending result -urine histoplasma Ab + on 07/17 Acute on chronic exacerbation of systolic CHF with EF 30-35 % ASCAD - ASA, lipitor, BB - entresto on hold due to recent hypotension on last hospital stay. 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 Thrombocytosis - chronic at baseline - follow CBC Tobacco abuse - cessation - nicotine replacement if needed Underweight with BMI 18.2 - dietitian recs DVT prophylaxis: heparin Anticipated discharge: pending clinical course Anticipated discharge place: home
--- NOTE | 2021-07-20 17:04 | P.PN ---
Subjective Progress Note Date: 07/20/21 Principal diagnosis: Histoplasma pneumonia Patient was reevaluated today on 07/20/21, he is presently on 5 L nasal cannula with O2 saturation of 89%. Feeling better, breathing easier, no fever no chills, hardly any cough. Remains on amphotericin B and is also on itraconazole. Renal functioning remains stable. Clinically the patient seems to be responding to the treatment quite well. He will eventually need to be discharged home on itraconazole, and decision to stop amphotericin will be done by infectious disease on the case. Objective - Vital Signs Vital signs: Vital Signs Temp 98 F 07/20/21 13:00 Pulse 103 H 07/20/21 15:47 Resp 24 07/20/21 13:00 BP 122/77 07/20/21 13:00 Pulse Ox 89 L 07/20/21 13:00 Intake & Output 07/19/21 07/20/21 07/20/21 18:59 06:59 18:59 Intake Total 420 1210 Output Total 5990 019 7790 Balance -655 -600 -840 Intake: Oral 420 1210 Output: Urine 0953 149 0917 Other: Voiding Method Bedside Commode Urinal # Voids 1 # Bowel Movements 1 - Exam GENERAL EXAM: Revealed a 56-year-old white male in no distress. HEAD: Normocephalic/atraumatic. ENT: PERRLA, EOMI, nonicteric, no neck masses no JVD. CHEST: No chest wall deformity. Symmetrical expansion. LUNGS: Diminished breath sound bilaterally no rhonchi and no wheezes CVS: Regular rate and rhythm, normal S1 and S2, no gallops, no murmurs, no rubs ABDOMEN: Soft, nontender. No hepatosplenomegaly, normal bowel sounds, no guarding or rigidity. EXTREMITIES: No clubbing, no edema, no cyanosis, 2+ pulses and upper and lower extremities. MUSCULOSKELETAL: Muscle strength and tone normal. SKIN: No rashes CENTRAL NERVOUS SYSTEM: Alert and oriented 3 focal deficits. PSYCHIATRIC: Normal mood affect and normal mental status examination. - Labs CBC & Chem 7: 07/20/21 06:50 07/20/21 06:50 Labs: Abnormal Lab Results - Last 24 Hours (Table) 07/20/21 07/20/21 Range/Units 06:50 06:50 WBC 14.4 H (3.8-10.6) k/uL RBC 4.03 L (4.30-5.90) m/uL Hgb 11.0 L (13.0-17.5) gm/dL Hct 36.1 L (39.0-53.0) % MCHC 30.6 L (31.0-37.0) g/dL RDW 17.4 H (11.5-15.5) % Plt Count 578 H (150-450) k/uL Neutrophils # 11.2 H (1.3-7.7) k/uL Sodium 136 L (137-145) mmol/L BUN 27 H (9-20) mg/dL Glucose 108 H (74-99) mg/dL C-Reactive Protein 2.9 H (<1.0) mg/dL Microbiology - Last 24 Hours (Table) 07/07/21 12:43 Acid Fast Bacilli Smear - Final Bronchial Washings - Right Acid Fast Bacilli Culture - Preliminary 07/06/21 11:53 Acid Fast Bacilli Smear - Final Sputum Acid Fast Bacilli Culture - Preliminary Assessment and Plan Assessment: Impression: Acute on chronic hypoxic respiratory failure secondary to histoplasma pneumonia and underlying COPD. History of bullous emphysema History of myocardial infarction Paroxysmal atrial fibrillation Coronary artery disease and previous stent placement History of chronic CHF and systolic dysfunction ejection fraction of 30-35% History of Suboxone abuse History of generalized anxiety disorder. Recommendation: Continue antifungal therapy Continue bronchodilators Continue oxygen and titrate accordingly Continue incentive spirometry Will consider discharge planning was the patient is off amphotericin B. However the patient will be on long-term itraconazole therapy. Prognosis remains guarded. We will continue to follow Time with Patient: Less than 30
[2021-07-20] MEDS: carvediloL 3.125 MG TAB PO SCH (20:37)
[2021-07-20] MEDS: HYDROCORTISONE SUCCINATE 100 MG/2 ML VIAL IV SCH (20:37)
[2021-07-20] MEDS: diphenhydrAMINE 50 MG/ML 1 ML VIAL IVP SCH (20:37)
--- NOTE | 2021-07-20 22:03 | P.PN ---
Subjective Progress Note Date: 07/20/21 Principal diagnosis: Pneumonia Patient is a 56-year-old male who was recently admitted to the hospital and was diagnosed with pneumonia status post bronchoscopy and those culture were negative patient was subsequently discharged home on oral antibiotics and currently admitted to the hospital within 72 hours with a fever. Patient repeat CT did shows progression of his pneumonia and the patient is status post bronchoscopy biopsy and lavage completed 07/07/2021, patient histoplasma urine antigen was reported positive on 07/17/2021 On today's evaluation that is 07/20/2021, the patient denies any fever or chills, the patient is breathing slightly comfortably and is down to 5 L of nasal oxygen, the patient denies chest pain denies any worsening cough or sputum production no nausea no vomiting no abdominal pain and no diarrhea Objective - Vital Signs Vital signs: Vital Signs Temp 97.5 F L 07/20/21 08:00 Pulse 100 07/20/21 11:37 Resp 26 H 07/20/21 08:00 BP 110/72 07/20/21 08:00 Pulse Ox 89 L 07/20/21 08:47 Intake & Output 07/19/21 07/20/21 07/20/21 18:59 06:59 18:59 Intake Total 420 730 Output Total 1075 600 800 Balance -655 -600 -70 Intake: Oral 420 730 Output: Urine 1075 600 800 Other: Voiding Method Bedside Commode Urinal # Voids 1 # Bowel Movements 1 - Exam GENERAL DESCRIPTION: Middle-aged male lying in bed in no distress RESPIRATORY SYSTEM: Unlabored breathing , decreased breath sounds at bases HEART: S1 S2 regular rate and rhythm , ABDOMEN: Soft , no tenderness EXTREMITIES: No edema feet - Labs CBC & Chem 7: 07/20/21 06:50 07/20/21 06:50 Labs: Abnormal Lab Results - Last 24 Hours (Table) 07/20/21 07/20/21 Range/Units 06:50 06:50 WBC 14.4 H (3.8-10.6) k/uL RBC 4.03 L (4.30-5.90) m/uL Hgb 11.0 L (13.0-17.5) gm/dL Hct 36.1 L (39.0-53.0) % MCHC 30.6 L (31.0-37.0) g/dL RDW 17.4 H (11.5-15.5) % Plt Count 578 H (150-450) k/uL Neutrophils # 11.2 H (1.3-7.7) k/uL Sodium 136 L (137-145) mmol/L BUN 27 H (9-20) mg/dL Glucose 108 H (74-99) mg/dL C-Reactive Protein 2.9 H (<1.0) mg/dL Microbiology - Last 24 Hours (Table) 07/06/21 11:53 Acid Fast Bacilli Smear - Final Sputum Acid Fast Bacilli Culture - Preliminary Assessment and Plan (1) Febrile illness, acute Current Visit: Yes Status: Acute Code(s): R50.9 - FEVER, UNSPECIFIED SNOMED Code(s): 260291652 (2) Pneumonia Current Visit: Yes Status: Acute Code(s): J18.9 - PNEUMONIA, UNSPECIFIED ORGANISM SNOMED Code(s): 728543195 Plan: 1patient presented to hospital with a fever increasing shortness of breath and this patient was recently diagnosed with the right-sided pneumonia status post bronchoscopy and was culture showed Jacey likely colonizer, failing outpatient oral antibiotic therapy. 2sputum cultures as well as urine for Legionella antigen has been negative [address] of the chest did show progressive pulmonary consolidation, likely representing progressive pneumonia, patient is status post bronchoscopy biopsy and lavage and cultures are so far negative 4-patient urine as well as plasma histoplasma antigen came back positive concerning for histoplasma infection in this patient who did have extensive pneumonia, liposomal amphotericin B has been started in addition to the itraconazole, kidney function will be monitored closely and plan is for at least one week of amphotericin B before discharging the patient on itraconazole Time with Patient: Less than 30
[2021-07-20] MEDS: AMPHOTERICIN B LIPOSOME IV SCH ×2 (23:30)
[2021-07-20] MEDS: WATER IV SCH ×2 (23:30)
[2021-07-20] MEDS: DEXTROSE 5% IV SCH ×2 (23:30)
[2021-07-20] MEDS: ALPRAZolam 0.5 MG TAB PO PRN (23:55)
[2021-07-20] MEDS: ACETAMINOPHEN TAB 325 MG TAB PO PRN (23:56)
[2021-07-21] MEDS: SODIUM CHLORIDE 0.9% 250 ML IV SCH ×2 (00:30→21:07)
[2021-07-21] MEDS: HEPARIN SODIUM,PORCINE/PF 5,000 UNIT/0.5 ML SYRINGE SQ SCH ×3 (00:47→15:45)
[2021-07-21 07:59] LABS: Anisocytosis Slight; Basophils # (A) 0.1 k/uL (0-0.2); Basophils % (A) 1 %; Eosinophils # (A) 0.1 k/uL (0-0.7); Eosinophils % (A) 1 %; Hypochromasia Marked; Lymphocytes # (A) 1.7 k/uL (1.0-4.8); Lymphocytes % (A) 12 %; MCH 27.4 pg (25.0-35.0); MCHC 30.7 g/dL (31.0-37.0); MCV 89.1 fL (80.0-100.0); Mean Platelet Volume 7.9; Monocytes # (A) 0.9 k/uL (0-1.0); Monocytes % (A) 6 %; Neutrophils # (A) 11.8 k/uL (1.3-7.7); Neutrophils % (A) 79 %; Platelet Count 541 k/uL (150-450); RBC 3.48 m/uL (4.30-5.90)
[2021-07-21 08:11] LABS: HGB 9.5 gm/dL (13.0-17.5)
[2021-07-21 08:18] LABS: ALT 76 U/L (4-49); AST 32 U/L (17-59); African American GFR (CKD) >90 (>60 ml/min/1.73 sqM); Albumin 2.4 g/dL (3.5-5.0); Alkaline Phosphatase 150 U/L (38-126); Anion Gap 3 mmol/L; Blood Urea Nitrogen 30 mg/dL (9-20); Calcium 8.5 mg/dL (8.4-10.2); Carbon Dioxide 32 mmol/L (22-30); Chloride 101 mmol/L (98-107); Glucose 114 mg/dL (74-99); Non-African American GFR(CKD) >90 (>60 ml/min/1.73 sqM); Potassium 4.6 mmol/L (3.5-5.1); Sodium 136 mmol/L (137-145); Total Bilirubin 0.3 mg/dL (0.2-1.3); Total Protein 5.6 g/dL (6.3-8.2)
[2021-07-21] MEDS: NON FORMULARY DRUG (Buprenorphine Hcl/Naloxone Hcl [Suboxone 8 Mg-2 Mg Sl Film] 1 EACH Fil SUBLINGUAL SCH (08:41)
[2021-07-21] MEDS: polyethylene glycoL 3350 17 GM POWD.PACK PO SCH (08:42)
[2021-07-21] MEDS: DOCUSATE 100 MG CAP PO SCH ×2 (08:42→21:00)
[2021-07-21] MEDS: LACTOBACILLUS ACIDOPH & BULGAR 1 EACH PACKET PO SCH (08:44)
[2021-07-21] MEDS: predniSONE 10 MG TAB PO SCH (08:50)
[2021-07-21] MEDS: FUROSEMIDE 40 MG TAB PO SCH (08:50)
[2021-07-21] MEDS: ASPIRIN 81 MG PO SCH (08:50)
[2021-07-21] MEDS: NICOTINE 21MG/24HR PATCH TRANSDERM SCH (08:50)
[2021-07-21] MEDS ORDERED: ITRACONAZOLE ORAL SUSP 1,500 MG/150 ML BOTTLE PO SCH (09:00)
[2021-07-21] MEDS: IPRATROPIUM-ALBUTEROL 3 ML NEB INHALATION PRN ×2 (09:09→17:11)
[2021-07-21] MEDS: SYMBICORT 80-4.5 MCG INHALER INHALATION SCH ×2 (09:09→20:39)
[2021-07-21] MEDS: IPRATROPIUM 0.5 MG/2.5 ML NEBU INHALATION SCH ×4 (09:09→20:38)
[2021-07-21] MEDS: ITRACONAZOLE 100 MG CAP PO SCH ×2 (09:10→21:07)
--- NOTE | 2021-07-21 12:06 | P.PN ---
Subjective Progress Note Date: 07/21/21 Principal diagnosis: Histoplasma pneumonia Patient was reevaluated today on 07/20/21, he is presently on 5 L nasal cannula with O2 saturation of 89%. Feeling better, breathing easier, no fever no chills, hardly any cough. Remains on amphotericin B and is also on itraconazole. Renal functioning remains stable. Clinically the patient seems to be responding to the treatment quite well. He will eventually need to be discharged home on itraconazole, and decision to stop amphotericin will be done by infectious disease on the case. Reevaluated today on 07/21/21, patient is doing well, remains on 6 L nasal cannula, develop shortness of breath with any activity, today he has a bit of a cough but unable to clear secretions well. Remains on itraconazole and amphotericin B. He had a PICC line placed, and I believe the infectious disease physician may consider sending the patient home on IV amphotericin B and oral itraconazole. WBC count today is 15.0 hemoglobin 9.5 *Normal renal profile is normal. Objective - Vital Signs Vital signs: Vital Signs Temp 97.5 F L 07/21/21 11:35 Pulse 97 07/21/21 11:35 Resp 22 07/21/21 11:35 BP 123/75 07/21/21 11:35 Pulse Ox 92 L 07/21/21 11:35 Intake & Output 07/20/21 07/21/21 07/21/21 18:59 06:59 18:59 Intake Total 1450 220 Output Total 2050 800 600 Balance -600 -800 -380 Intake: Oral 1450 220 Output: Urine 0 800 600 Other: Voiding Method Bedside Commode Bedside Commode Urinal Urinal # Voids 1 1 # Bowel Movements 1 - Exam GENERAL EXAM: Revealed a 56-year-old white male in no distress. On 6 L nasal cannula. HEAD: Normocephalic/atraumatic. ENT: PERRLA, EOMI, nonicteric, no neck masses no JVD. CHEST: No chest wall deformity. Symmetrical expansion. LUNGS: Diminished breath sound bilaterally no rhonchi and no wheezes CVS: Regular rate and rhythm, normal S1 and S2, no gallops, no murmurs, no rubs ABDOMEN: Soft, nontender. No hepatosplenomegaly, normal bowel sounds, no guarding or rigidity. EXTREMITIES: No clubbing, no edema, no cyanosis, 2+ pulses and upper and lower extremities. MUSCULOSKELETAL: Muscle strength and tone normal. SKIN: No rashes CENTRAL NERVOUS SYSTEM: Alert and oriented 3 focal deficits. PSYCHIATRIC: Normal mood affect and normal mental status examination. - Labs CBC & Chem 7: 07/21/21 06:05 07/21/21 06:05 Labs: Abnormal Lab Results - Last 24 Hours (Table) 07/21/21 07/21/21 Range/Units 06:05 06:05 WBC 15.0 H (3.8-10.6) k/uL RBC 3.48 L (4.30-5.90) m/uL Hgb 9.5 L D (13.0-17.5) gm/dL Hct 31.0 L (39.0-53.0) % MCHC 30.7 L (31.0-37.0) g/dL RDW 18.0 H (11.5-15.5) % Plt Count 541 H (150-450) k/uL Neutrophils # 11.8 H (1.3-7.7) k/uL Sodium 136 L (137-145) mmol/L Carbon Dioxide 32 H (22-30) mmol/L BUN 30 H (9-20) mg/dL Glucose 114 H (74-99) mg/dL ALT 76 H (4-49) U/L Alkaline Phosphatase 150 H (38-126) U/L Total Protein 5.6 L (6.3-8.2) g/dL Albumin 2.4 L (3.5-5.0) g/dL Microbiology - Last 24 Hours (Table) 07/07/21 12:43 Acid Fast Bacilli Smear - Final Bronchial Washings - Right Acid Fast Bacilli Culture - Preliminary 07/06/21 11:53 Acid Fast Bacilli Smear - Final Sputum Acid Fast Bacilli Culture - Preliminary Assessment and Plan Assessment: Impression: Acute on chronic hypoxic respiratory failure secondary to histoplasma pneumonia and underlying COPD. History of bullous emphysema History of myocardial infarction Paroxysmal atrial fibrillation Coronary artery disease and previous stent placement History of chronic CHF and systolic dysfunction ejection fraction of 30-35% History of Suboxone abuse History of generalized anxiety disorder. Recommendation: Continue antifungal therapy, PICC line was placed yesterday. Continue bronchodilators Continue oxygen and titrate accordingly Continue incentive spirometry Will clear the patient for discharge if cleared by infectious disease on the case, may need IV amphotericin B on outpatient basis via PICC line. Continue long-term itraconazole therapy. Prognosis remains guarded. We will continue to follow Time with Patient: Less than 30
--- NOTE | 2021-07-21 16:11 | P.PN ---
Subjective Patient was examined at bedside today continues to complain of some shortness of breath. Family present at bedside eating donut comfortably. Unfortunately auctions saturations slightly decreasing 80% and had to go up on nasal cannula 7 L. He denies any productive cough, fever or chills. Objective - Vital Signs Vital signs: Vital Signs Temp 97.5 F L 07/21/21 11:35 Pulse 97 07/21/21 14:00 Resp 22 07/21/21 14:00 BP 123/75 07/21/21 11:35 Pulse Ox 92 L 07/21/21 11:35 Intake & Output 07/20/21 07/21/21 07/21/21 18:59 06:59 18:59 Intake Total 1450 220 Output Total 2049 800 600 Balance -600 -800 -380 Intake: Oral 1450 220 Output: Urine 2049 800 600 Other: Voiding Method Bedside Commode Bedside Commode Urinal Urinal # Voids 1 1 # Bowel Movements 1 1 - Exam Gen: awake, alert HEENT: normocephalic, atraumatic, good hearing acuity, moist mucous membranes Resp: impaired air exchange, breathing comfortably with no accessory muscle use - currently on 7 L nasal cannula CVS: good distal perfusion x 4, GI: soft, NTTP, ND : no SPT, no CVAT, sung catheter not present MSK: no pitting edema, no clubbing Neuro: non-focal, moving all extremities Psych: cooperative, euthymic mood - Labs CBC & Chem 7: 07/21/21 06:05 07/21/21 06:05 Labs: Abnormal Lab Results - Last 24 Hours (Table) 07/21/21 07/21/21 Range/Units 06:05 06:05 WBC 15.0 H (3.8-10.6) k/uL RBC 3.48 L (4.30-5.90) m/uL Hgb 9.5 L D (13.0-17.5) gm/dL Hct 31.0 L (39.0-53.0) % MCHC 30.7 L (31.0-37.0) g/dL RDW 18.0 H (11.5-15.5) % Plt Count 541 H (150-450) k/uL Neutrophils # 11.8 H (1.3-7.7) k/uL Sodium 136 L (137-145) mmol/L Carbon Dioxide 32 H (22-30) mmol/L BUN 30 H (9-20) mg/dL Glucose 114 H (74-99) mg/dL ALT 76 H (4-49) U/L Alkaline Phosphatase 150 H (38-126) U/L Total Protein 5.6 L (6.3-8.2) g/dL Albumin 2.4 L (3.5-5.0) g/dL Assessment and Plan Assessment: Sepsis with acute on chronic hypoxemic respiratory failure COPD Exacerbation Fungal Pneumonia secondary to Histoplasma - itraconazole, amphotericin, prednisone antimicrobials as per ID/consultants on discharge. - PICC line placed 07/03 - CrAg, galactomannan, [id number] negative - MRSA, HIV negative; Immunoglobulin G subgroup panel WNL - Histoplasma yeast CF Ab 1:16, mycel CF Ab 1:128; - Histoplasma immunodiffusion M/H precipitins are positive, this is 100% specific for acute active histoplasmosis, -oddly no granulomas seen on biopsy or hyphael elements seen on PAS, GMS stains - atypical histoplasma fungal presentation -Fungal Cx from 06/23, pending, will be updated 07/24 per Lab -Fungal Cx from 07/07, pending, will be updated 07/24 per Lab -blood histoplasma Ab pending result -urine histoplasma Ab + on 07/17 Acute on chronic exacerbation of systolic CHF with EF 30-35 % ASCAD - ASA, lipitor, BB - entresto on hold due to recent hypotension on last hospital stay. Patient plans on following up with his primary general production laborer regarding this. Thrombocytosis - chronic at baseline - follow CBC Tobacco abuse - cessation - nicotine replacement if needed Underweight with BMI 18.2 - dietitian recs DVT prophylaxis: heparin
[2021-07-21] MEDS: HYDROCORTISONE SUCCINATE 100 MG/2 ML VIAL IV SCH (21:07)
[2021-07-21] MEDS: carvediloL 3.125 MG TAB PO SCH (21:07)
[2021-07-21] MEDS: diphenhydrAMINE 50 MG/ML 1 ML VIAL IVP SCH (21:07)
[2021-07-21] MEDS: ALPRAZolam 0.5 MG TAB PO PRN (23:26)
[2021-07-21] MEDS: ACETAMINOPHEN TAB 325 MG TAB PO PRN (23:27)
[2021-07-22] MEDS: AMPHOTERICIN B LIPOSOME IV SCH ×4 (00:13→21:30)
[2021-07-22] MEDS: WATER IV SCH ×4 (00:13→21:30)
[2021-07-22] MEDS: DEXTROSE 5% IV SCH ×4 (00:13→21:30)
[2021-07-22] MEDS: HEPARIN SODIUM,PORCINE/PF 5,000 UNIT/0.5 ML SYRINGE SQ SCH ×4 (00:44→23:55)
[2021-07-22] MEDS: SODIUM CHLORIDE 0.9% 250 ML IV SCH ×3 (05:56→23:51)
[2021-07-22] MEDS: IPRATROPIUM 0.5 MG/2.5 ML NEBU INHALATION SCH ×4 (07:35→19:42)
[2021-07-22] MEDS: IPRATROPIUM-ALBUTEROL 3 ML NEB INHALATION PRN ×4 (07:36→19:41)
[2021-07-22] MEDS: SYMBICORT 80-4.5 MCG INHALER INHALATION SCH ×2 (07:36→19:41)
[2021-07-22] MEDS: NON FORMULARY DRUG (Buprenorphine Hcl/Naloxone Hcl [Suboxone 8 Mg-2 Mg Sl Film] 1 EACH Fil SUBLINGUAL SCH (08:36)
[2021-07-22] MEDS: FUROSEMIDE 40 MG TAB PO SCH (08:43)
[2021-07-22] MEDS: ASPIRIN 81 MG PO SCH (08:43)
[2021-07-22] MEDS: ITRACONAZOLE 100 MG CAP PO SCH ×2 (08:43→20:15)
[2021-07-22] MEDS: predniSONE 10 MG TAB PO SCH (08:43)
[2021-07-22] MEDS: NICOTINE 21MG/24HR PATCH TRANSDERM SCH (08:45)
[2021-07-22] MEDS: polyethylene glycoL 3350 17 GM POWD.PACK PO SCH (08:46)
[2021-07-22] MEDS: LACTOBACILLUS ACIDOPH & BULGAR 1 EACH PACKET PO SCH (08:46)
[2021-07-22] MEDS: DOCUSATE 100 MG CAP PO SCH ×2 (08:46→20:04)
[2021-07-22 09:02] LABS: Anisocytosis Slight; Basophils # (A) 0.1 k/uL (0-0.2); Basophils % (A) 1 %; Eosinophils # (A) 0.3 k/uL (0-0.7); Eosinophils % (A) 1 %; HCT 35.4 % (39.0-53.0); HGB 10.7 gm/dL (13.0-17.5); Hypochromasia Marked; Lymphocytes # (A) 2.3 k/uL (1.0-4.8); Lymphocytes % (A) 12 %; MCH 27.5 pg (25.0-35.0); MCHC 30.4 g/dL (31.0-37.0); MCV 90.5 fL (80.0-100.0); Monocytes # (A) 0.8 k/uL (0-1.0); Monocytes % (A) 4 %; Neutrophils % (A) 81 %; Platelet Count 526 k/uL (150-450); RBC 3.91 m/uL (4.30-5.90); WBC 19.7 k/uL (3.8-10.6)
[2021-07-22 09:12] LABS: African American GFR (CKD) >90 (>60 ml/min/1.73 sqM); Anion Gap 5 mmol/L; Blood Urea Nitrogen 33 mg/dL (9-20); Calcium 8.9 mg/dL (8.4-10.2); Carbon Dioxide 32 mmol/L (22-30); Chloride 98 mmol/L (98-107); Glucose 146 mg/dL (74-99); Non-African American GFR(CKD) >90 (>60 ml/min/1.73 sqM); Potassium 4.1 mmol/L (3.5-5.1); Sodium 135 mmol/L (137-145)
--- NOTE | 2021-07-22 10:53 | P.PN ---
Subjective Progress Note Date: 07/22/21 56-year-old male patient with known history of COPD, chronic smoker, CAD, paroxysmal A. fib status post pacemaker insertion, chronic CHF with systolic dysfunction, ischemic cardiomyopathy with EF of 30-35% with AICD placement, anxiety who was recently hospitalized for acute exacerbation of COPD, complica francis with possible pneumonia. Patient's chest x-ray showed bilateral airspace disease, underlying emphysema. CT angiogram of the chest showed no evidence of pulmonary embolism, extensive bullous pulmonary emphysema, with extensive honeycombing infiltrate in the mid and upper lung hendricks. Patient was treated with a combination of Rocephin and Zithromax initially, however he continued to have intermittent febrile episodes and subsequently he was switched to Zosyn by infectious disease service. Patient ended up having bronchoalveolar lavage on 06/24/[address] Ulloa, and BAL cultures showed no growth other than Jacey albicans. A separate BAL cultures were taken from right upper lobe and left lower lobe, cytology was negative for diagnostic malignancy. BAL cultures and viral cultures were negative. Patient was clinically improving, after being switched over to Zosyn patient's fever pattern had improved, and subsequently he was discharged home on oral course of Augmentin, and we recommended at least 2 week treatment with Augmentin, completion of prednisone taper and patient was sent home on home oxygen at 4 L. Patient states he was discharged on a Tuesday, by Tuesday night he started having increased swelling in his lower extremities, he could hardly get his socks on. At the same time he started developing a fever. He states he picked up his antibiotics and was taking them, he denied any worsening shortness of breath, no cough, no phlegm production, no hemoptysis no chest pain. No swelling or tenderness in the bilateral calves. He came into the emergency department for reevaluation on 06/29/2021. His temperature on admission was 101.4F. Chest x-ray showed findings similar to the prior exam with bilateral airspace disease, increased interstitium and underlying emphysema. Admission labs showed white blood cell count of 14.3, hemoglobin 12.4, sodium is 133, the rest of electrolytes were unremarkable, B1 is 16 creatinine 0.55, proBNP was 1520, troponin was 0.017, AST was 46, ALT was 158, alk phos was 146, urinalysis showed no evidence of infection, patient tested negative for COVID 19. Patient was started on vancomycin for antibiotic coverage, and Zosyn. He was started on oral Lasix after a single dose of IV Lasix 40 mg. Currently ankle edema is improving, he is diuresing, he continues on the bronchodilators. On 07/01/2021 patient seen in follow-up on medical surgical floor, he states he is breathing comfortably, he is currently on 2 L of oxygen his pulse ox is 91- 93%. His ankle swelling is significantly down, this morning patient was able to produce a sputum specimen which was sent for culture, follow-up chest x-ray today showing confluent densities in the upper lobes, and worsening pneumonia. Patient currently remains on Zosyn and vancomycin. No fever or chills overnight. White blood cell count is 10.6, hemoglobin is 10.9, sodium is 131, the rest of the electrolytes and renal profile were unremarkable, LFTs are improved. No chest discomfort, no hemoptysis. Patient continues on nebulized bronchodilators, he is on oral dose of Lasix 40 mg daily. On 07/02/2021 patient seen in follow-up on medical surgical floor. He is still having intermittent fevers, T-max in last 24 hours 101.8F, patient was initially covered with a combination of Zosyn and vancomycin, ID service recommended discontinuing vancomycin and patient is currently on Zosyn and Levaquin has been added. Urine for Legionella antigen will be sent. Cultures reviewed, blood cultures have been negative, sputum Gram stain showing rare PMNs, few gram-positive cocci in clusters, few budding yeast. BAL cultures showed Jacey albicans. Today's labs reviewed, with blood cell count 12.3, hemoglobin is 9.3, sodium is 1:0, potassium is 4.3, B1 17 creatinine 0.57, CRP is 20.8, and pro-calcitonin level was 0.56. No worsening cough or hemoptysis, no chest pain, no altered mentation, hemodynamically has been stable, he has been tolerating ambulation in the room. Lower extremity swelling has significantly improved, patient remains on once daily dose of Lasix. 07/03/2021 patient seen in follow-up. He states there is no worsening dyspnea, occasional cough, no significant phlegm production, no chest discomfort, he remains on 2 L of oxygen the pulse ox of 90-93%, his fever pattern has improved in the last 24 hours, although the patient still has persistent low-grade fevers with a T-max of 100.6F. Room air pulse ox is 87%, and patient is very frust rated this morning as he was placed on the schedule for possible bronchoscopy with BAL without proper communication with him. Dr. Lundberg is at the bedside, and patient clinically has not worsened, he is currently on a combination of Levaquin and Zosyn, there has been no growth on BAL cultures from last admission, or blood or sputum culture, nasal swab for MRSA was negative. Follow blood cultures show no growth. Legionella urine antigen was negative. Yesterday CT of the chest was completed showing progressive chronic consolidation, likely representing progressive pneumonia, enlarged lymph nodes likely reactive. The patient is seen today 07/04/2021 in follow-up on the regular medical floor. He is currently sitting up in bed. Awake and alert in no acute distress. He is currently maintaining O2 saturations in the mid 90s on 2 L/m per nasal cannula. He did spike another fever this morning of 102.6. No worsening shortness of breath, cough or congestion. Blood cultures are revealing no growth. Sputum culture revealed no growth. White count 13.7. Hemoglobin 9.5. Platelets 587. Sodium 132. Potassium 4.4. BUN 16. Creatinine 0.7. Glucose 131. Antibiotics have been modified to Unasyn and Levaquin. He remains on oral diuretics. NicoDerm patch in place. The patient is seen today 07/07/2021 in follow-up on the regular medical floor. He is currently sitting up in bed. Awake and alert in no acute distress. He did have some issues with increased hypoxemia while laying flat last night. He is currently on 6 L high flow nasal cannula with O2 saturation in low 90s. He's been afebrile. Hemodynamically stable. Sputum culture reveals no growth. AFB results pending. Blood culture reveals no growth. Creatinine 0.60. He is continued on Symbicort, DuoNeb inhalations antibiotics in the form of vancomycin and Unasyn. Remains on oral diuretics. Heparin for DVT prophylaxis. NicoDerm patch is in place. The patient is seen today 07/08/2021 in follow-up on the regular medical floor. He remains awake and alert. Sitting up in bed. He is feeling a bit more short of breath and weak today compared to yesterday. He did undergo bronchoscopy with BAL, brushings and biopsies. Cultures and cytology pending. White count 10.3. Hemoglobin 8.2. Platelet count 556. Neutrophils 7.8. Sodium 135. Potassium 3.9. BUN 18. Creatinine 0.58. Glucose 113. Calcium 7.7. AST 81. ALT 56. Alk phos 155. Vancomycin trough 7.7. IgE level 1651. Initial sputum culture positive for Jacey only. He remains on Diflucan. He is also on antibiotics in the form of vancomycin and Unasyn. NicoDerm patch in place. The patient is seen today 07/09/2021 in follow-up on the regular medical floor. He is sitting up in bed. Awake and alert. Feeling a bit better today compared to yesterday. Still with a loose cough. Still requiring 6 L high flow nasal cannula to maintain O2 saturation the high 80s low 90s. He is continued on vancomycin, Unasyn, Diflucan. Continued on bronchodilators. Cultures and pathology are still pending. White count 12.4. Hemoglobin 8.1. Platelets 592. Sodium 137. Potassium 4.1. BUN 12. Creatinine 0.5. The patient is seen today 07/12/2021 in follow-up on the selective care unit. He is currently sitting up in bed. Awake and alert in no acute distress. He is maintaining O2 saturations in the upper 80s low 90s on 6 L high flow nasal cannula. He is currently afebrile. Hemodynamically stable. Bronchial wash cultures revealed no growth. Cytology revealed evidence of organizing pneumonia. No evidence of malignancy. He remains on IV Solu-Medrol, DuoNeb inhalations, Symbicort. Antibiotics in form of Vibramycin and Zosyn. The patient is seen today 07/22/2021 in follow-up on the regular medical floor. He is currently sitting up at the bedside. Awake and alert in no acute distress. He is maintaining O2 saturations in the low 90s-80s on 5 L high flow nasal cannula. He denies any worsening shortness of breath. He has a loose nonproductive cough. No fever chills. Rhonchi wash cultures revealed no growt h. White count 19.7. Hemoglobin 10.7. Platelets 526. Sodium 135 potassium 4.1. BUN 33. Creatinine 0.1. He is continued on DuoNeb inhalations, Symbicort, Solu-Cortef. Serum histoplasma was positive. He is on amphotericin B per infectious disease. He is quite anxious to go home. Objective - Vital Signs Vital signs: Vital Signs Temp 98.2 F 07/22/21 07:53 Pulse 98 07/22/21 08:00 Resp 22 07/22/21 08:00 BP 128/76 07/22/21 07:53 Pulse Ox 87 L 07/22/21 07:53 Intake & Output 07/21/21 07/22/21 07/22/21 18:59 06:59 18:59 Intake Total 460 960 180 Output Total 600 1350 Balance -140 -390 180 Intake: Oral 460 960 180 Output: Urine 600 1350 Other: Voiding Method Bedside Commode Bedside Commode Bedside Commode Urinal Urinal Urinal # Voids 1 0 # Bowel Movements 1 0 - Exam GENERAL EXAM: Alert, 56-year-old male patient, on 5 L of oxygen pulse ox of 87%, fairly comfortable in no apparent distress. HEAD: Normocephalic/atraumatic. EYES: Normal reaction of pupils, equal size. Conjunctiva pink, sclera white. NOSE: Clear with pink turbinates. THROAT: No erythema or exudates. NECK: No masses, no JVD, no thyroid enlargement, no adenopathy. CHEST: No chest wall deformity. Symmetrical expansion. LUNGS: Equal air entry with few scattered rhonchi. Diminished CVS: Regular rate and rhythm, normal S1 and S2, no gallops, no murmurs, no rubs ABDOMEN: Soft, nontender. No hepatosplenomegaly, normal bowel sounds, no guard ing or rigidity. EXTREMITIES: No clubbing, no edema, no cyanosis, 2+ pulses and upper and lower extremities. MUSCULOSKELETAL: Muscle strength and tone normal. SPINE: No scoliosis or deformity SKIN: No rashes CENTRAL NERVOUS SYSTEM: No focal deficits, tone is normal in all 4 extremities. PSYCHIATRIC: Alert and oriented -3. Appropriate affect. Intact judgment and insight. - Labs CBC & Chem 7: 07/22/21 07:59 07/22/21 07:59 Labs: Abnormal Lab Results - Last 24 Hours (Table) 07/22/21 07/22/21 Range/Units 07:59 07:59 WBC 19.7 H (3.8-10.6) k/uL RBC 3.91 L (4.30-5.90) m/uL Hgb 10.7 L (13.0-17.5) gm/dL Hct 35.4 L (39.0-53.0) % MCHC 30.4 L (31.0-37.0) g/dL RDW 18.0 H (11.5-15.5) % Plt Count 526 H (150-450) k/uL Neutrophils # 16.0 H (1.3-7.7) k/uL Sodium 135 L (137-145) mmol/L Carbon Dioxide 32 H (22-30) mmol/L BUN 33 H (9-20) mg/dL Glucose 146 H (74-99) mg/dL C-Reactive Protein 3.0 H (<1.0) mg/dL Assessment and Plan Assessment: 1 Persistent fever, despite antibiotics, rule out bacteremia, blood cultures reveal no growth, sputum culture revealing no growth, AFB pending. Current coverage with Vibramycin and Zosyn. COVID-19 PCR was negative. Bronchoscopy with BAL, brushings and biopsies performed on 07/07/2021. Cultures revealing no growth. Cytology reveals evidence of organizing pneumonia. No evidence of malignancy. Serum plasma was positive for Histoplasma and is currently on amphotericin B and itraconazole. 2 Bilateral upper lobe pneumonia, stable on the chest x-ray, status post recent bronchoscopy with BAL on 06/24/2021, and BAL cultures were negative, viral cultures have been negative, COVID-19 PCR was negative 3 Recent hospitalization for acute exacerbation of COPD, and bilateral pneumonia, discharged home on 06/25/2021 to complete 2 week course of Augmentin 4 Bullous emphysema/COPD, on home oxygen since the recent hospitalization on 4 L 5 Increased swelling in bilateral lower extremities, possibly related to acute exacerbation of systolic CHF 6 Prior history of myocardial infarction 7 History of paroxysmal A. fib status post AICD and pacemaker insertion 8 CAD with prior stenting 9 History of CHF with systolic dysfunction 10 Ischemic cardiomyopathy with EF of 30-35% 11 History of laparoscopic bilateral inguinal hernia repair 12 History of prescription narcotic abuse currently on Suboxone 13 History of anxiety 14 Anemia, current hemoglobin 8.2 Plan: Patient was seen and evaluated He is quite anxious to go home We'll need home oxygen Remains on amphotericin B and a itraconazole Follow closely with ID services Follow up in the office in 1-2 weeks' I have personally seen and examined the patient, performed the documentation and the assessment and plan as written. Number of minutes spent on the visit: 10.
--- NOTE | 2021-07-22 12:37 | P.PN ---
Subjective Patient was examined at bedside today extremely anxious and angry. He wants to be discharge home. I did evaluate him he is currently on 6 L saturating mid 80% tachycardic in the 130s and slightly tachypneic. Case discussed with RN and case management. I have contacted pulmonary to get the patient reevaluated I also spoke with infectious disease that states that shortness of breath is pretty significant. He is getting worked up talking to me and states that he does not trust my medical judgment is have not seen him before. Objective - Vital Signs Vital signs: Vital Signs Temp 98.1 F 07/22/21 11:56 Pulse 113 H 07/22/21 11:56 Resp 18 07/22/21 11:56 BP 122/90 07/22/21 11:56 Pulse Ox 91 L 07/22/21 11:56 Intake & Output 07/21/21 07/22/21 07/22/21 18:59 06:59 18:59 Intake Total 460 960 360 Output Total 600 1350 800 Balance -140 -390 -440 Intake: Oral 460 960 360 Output: Urine 600 1350 800 Other: Voiding Method Bedside Commode Bedside Commode Bedside Commode Urinal Urinal Urinal # Voids 1 0 # Bowel Movements 1 1 - Exam Gen: awake, alert very anxious and distressed HEENT: normocephalic, atraumatic, good hearing acuity, moist mucous membranes Resp: impaired air exchange, some rhonchi appreciated, currently on 6 L nasal cannula and tachypneic CVS: good distal perfusion x 4, GI: soft, NTTP, ND : no SPT, no CVAT, sung catheter not present MSK: no pitting edema, no clubbing Neuro: non-focal, moving all extremities Psych: Not Very cooperative during my examination. Anxious - Labs CBC & Chem 7: 07/22/21 07:59 07/22/21 07:59 Labs: Abnormal Lab Results - Last 24 Hours (Table) 07/22/21 07/22/21 Range/Units 07:59 07:59 WBC 19.7 H (3.8-10.6) k/uL RBC 3.91 L (4.30-5.90) m/uL Hgb 10.7 L (13.0-17.5) gm/dL Hct 35.4 L (39.0-53.0) % MCHC 30.4 L (31.0-37.0) g/dL RDW 18.0 H (11.5-15.5) % Plt Count 526 H (150-450) k/uL Neutrophils # 16.0 H (1.3-7.7) k/uL Sodium 135 L (137-145) mmol/L Carbon Dioxide 32 H (22-30) mmol/L BUN 33 H (9-20) mg/dL Glucose 146 H (74-99) mg/dL C-Reactive Protein 3.0 H (<1.0) mg/dL Assessment and Plan Assessment: Assessment: #1 sepsis secondary to fungal pneumonia/histoplasmosis #2 COPD exacerbation secondary to above #3 acute hypoxic respiratory distress secondary to above currently on 6-7 L saturating 90% #4 congestive heart failure with reduced ejection fraction NYHA stage III class C #5 normocytosis #6 tobacco dependence #7 underweight BMI 18.2 Plan: -Admit to medicine for close monitoring -Aspiration/fall precaution -Maintain saturations above 90%, obtain chest x-ray -Patient is very upset and wants to be discharged immediately. Unfortunately given his respiratory status the fact that he is on 6 L saturating 89-90%, tachycardic at 120/130s. And tachypnea during my conversation patient is not clear to be discharged from my perspective. I have contacted pulmonary to evaluate the patient. I also spoke with ID that is agreeable. -Continue with antimicrobials as per infectious disease team currently on itraconazole and amphotericin B -Microbiology reviewed -DVT prophylaxis -PICC line placed 07/03 -Continue with breathing treatments scheduled. - CrAg, galactomannan, [id number] negative - MRSA, HIV negative; Immunoglobulin G subgroup panel WNL - Histoplasma yeast CF Ab 1:16, mycel CF Ab 1:128; - Histoplasma immunodiffusion M/H precipitins are positive, this is 100% specific for acute active histoplasmosis, -oddly no granulomas seen on biopsy or hyphael elements seen on PAS, GMS stains - atypical histoplasma fungal presentation -Fungal Cx from 06/23, pending, will be updated 07/24 per Lab -Fungal Cx from 07/07, pending, will be updated 07/24 per Lab -blood histoplasma Ab pending result -urine histoplasma Ab + on 07/17 DVT prophylaxis: heparin
--- NOTE | 2021-07-22 16:35 | P.PN ---
Subjective Progress Note Date: 07/21/21 Principal diagnosis: Pneumonia Patient is a 56-year-old male who was recently admitted to the hospital and was diagnosed with pneumonia status post bronchoscopy and those culture were negative patient was subsequently discharged home on oral antibiotics and currently admitted to the hospital within 72 hours with a fever. Patient repeat CT did shows progression of his pneumonia and the patient is status post bronchoscopy biopsy and lavage completed 07/07/2021, patient histoplasma urine antigen was reported positive on 07/17/2021 On today's evaluation that is 07/21/2021, the patient remains to be afebrile, the patient is breathing slightly comfortably on 5 L of nasal oxygen, the patient denies chest pain denies , the patient cough has decrease in density mostly dry in nature, the patient denies any nausea vomiting no abdominal pain no diarrhea Objective - Vital Signs Vital signs: Vital Signs Temp 98.0 F 07/21/21 08:00 Pulse 106 H 07/21/21 09:25 Resp 22 07/21/21 08:00 BP 127/75 07/21/21 08:00 Pulse Ox 81 L 07/21/21 09:12 Intake & Output 07/20/21 07/21/21 07/21/21 18:59 06:59 18:59 Intake Total 1450 220 Output Total 0 800 Balance -600 -800 220 Intake: Oral 1450 220 Output: Urine 2049 800 Other: Voiding Method Bedside Commode Bedside Commode Urinal Urinal # Voids 1 1 # Bowel Movements 1 - Exam GENERAL DESCRIPTION: Middle-aged male lying in bed in no distress RESPIRATORY SYSTEM: Unlabored breathing , decreased breath sounds at bases HEART: S1 S2 regular rate and rhythm , ABDOMEN: Soft , no tenderness EXTREMITIES: No edema feet - Labs CBC & Chem 7: 07/22/21 07:59 07/22/21 07:59 Labs: Abnormal Lab Results - Last 24 Hours (Table) 07/21/21 07/21/21 Range/Units 06:05 06:05 WBC 15.0 H (3.8-10.6) k/uL RBC 3.48 L (4.30-5.90) m/uL Hgb 9.5 L D (13.0-17.5) gm/dL Hct 31.0 L (39.0-53.0) % MCHC 30.7 L (31.0-37.0) g/dL RDW 18.0 H (11.5-15.5) % Plt Count 541 H (150-450) k/uL Neutrophils # 11.8 H (1.3-7.7) k/uL Sodium 136 L (137-145) mmol/L Carbon Dioxide 32 H (22-30) mmol/L BUN 30 H (9-20) mg/dL Glucose 114 H (74-99) mg/dL ALT 76 H (4-49) U/L Alkaline Phosphatase 150 H (38-126) U/L Total Protein 5.6 L (6.3-8.2) g/dL Albumin 2.4 L (3.5-5.0) g/dL Microbiology - Last 24 Hours (Table) 07/07/21 12:43 Acid Fast Bacilli Smear - Final Bronchial Washings - Right Acid Fast Bacilli Culture - Preliminary 07/06/21 11:53 Acid Fast Bacilli Smear - Final Sputum Acid Fast Bacilli Culture - Preliminary Assessment and Plan (1) Febrile illness, acute Current Visit: Yes Status: Acute Code(s): R50.9 - FEVER, UNSPECIFIED SNOMED Code(s): 715414544 (2) Pneumonia Current Visit: Yes Status: Acute Code(s): J18.9 - PNEUMONIA, UNSPECIFIED ORGANISM SNOMED Code(s): 972572028 Plan: 1patient presented to hospital with a fever increasing shortness of breath and this patient was recently diagnosed with the right-sided pneumonia status post bronchoscopy and was culture showed Jacey likely colonizer, failing outpatient oral antibiotic therapy. 2sputum cultures as well as urine for Legionella antigen has been negative [address] of the chest did show progressive pulmonary consolidation, likely representing progressive pneumonia, patient is status post bronchoscopy biopsy and lavage and cultures are so far negative 4-patient urine as well as plasma histoplasma antigen came back positive concerning for histoplasma infection in this patient who did have extensive pneumonia, patient is currently on liposomal amphotericin B and itraconazole, plan is for at least one week of amphotericin B before discharging the patient on itraconazole, kidney function has been normal Time with Patient: Less than 30
--- NOTE | 2021-07-22 16:37 | P.PN ---
Subjective Progress Note Date: 07/22/21 Principal diagnosis: Pneumonia Patient is a 56-year-old male who was recently admitted to the hospital and was diagnosed with pneumonia status post bronchoscopy and those culture were negative patient was subsequently discharged home on oral antibiotics and currently admitted to the hospital within 72 hours with a fever. Patient repeat CT did shows progression of his pneumonia and the patient is status post bronchoscopy biopsy and lavage completed 07/07/2021, patient histoplasma urine antigen was reported positive on 07/17/2021 On today's evaluation that is 07/22/2021, the patient denies any fever or any chills, the patient seemed to be slightly upset as his O2 was bumped up to 6 L, the patient denies chest pain , the patient cough has decrease in density mostly dry in nature, the patient denies any nausea vomiting no abdominal pain no diarrhea Objective - Vital Signs Vital signs: Vital Signs Temp 98.1 F 07/22/21 11:56 Pulse 113 H 07/22/21 11:56 Resp 18 07/22/21 11:56 BP 122/90 07/22/21 11:56 Pulse Ox 91 L 07/22/21 11:56 Intake & Output 07/21/21 07/22/21 07/22/21 18:59 06:59 18:59 Intake Total 460 960 360 Output Total 600 1350 800 Balance -140 -390 -440 Intake: Oral 460 960 360 Output: Urine 600 1350 800 Other: Voiding Method Bedside Commode Bedside Commode Bedside Commode Urinal Urinal Urinal # Voids 1 0 # Bowel Movements 1 1 - Exam GENERAL DESCRIPTION: Middle-aged male lying in bed in no distress RESPIRATORY SYSTEM: Unlabored breathing , decreased breath sounds at bases HEART: S1 S2 regular rate and rhythm , ABDOMEN: Soft , no tenderness EXTREMITIES: No edema feet - Labs CBC & Chem 7: 07/22/21 07:59 07/22/21 07:59 Labs: Abnormal Lab Results - Last 24 Hours (Table) 07/22/21 07/22/21 Range/Units 07:59 07:59 WBC 19.7 H (3.8-10.6) k/uL RBC 3.91 L (4.30-5.90) m/uL Hgb 10.7 L (13.0-17.5) gm/dL Hct 35.4 L (39.0-53.0) % MCHC 30.4 L (31.0-37.0) g/dL RDW 18.0 H (11.5-15.5) % Plt Count 526 H (150-450) k/uL Neutrophils # 16.0 H (1.3-7.7) k/uL Sodium 135 L (137-145) mmol/L Carbon Dioxide 32 H (22-30) mmol/L BUN 33 H (9-20) mg/dL Glucose 146 H (74-99) mg/dL C-Reactive Protein 3.0 H (<1.0) mg/dL Assessment and Plan (1) Febrile illness, acute Current Visit: Yes Status: Acute Code(s): R50.9 - FEVER, UNSPECIFIED SNOMED Code(s): 402410762 (2) Pneumonia Current Visit: Yes Status: Acute Code(s): J18.9 - PNEUMONIA, UNSPECIFIED ORGANISM SNOMED Code(s): 777706268 Plan: 1patient presented to hospital with a fever increasing shortness of breath and this patient was recently diagnosed with the right-sided pneumonia status post bronchoscopy and was culture showed Jacey likely colonizer, failing outpatient oral antibiotic therapy. 2sputum cultures as well as urine for Legionella antigen has been negative [address] of the chest did show progressive pulmonary consolidation, likely representing progressive pneumonia, patient is status post bronchoscopy biopsy and lavage and cultures are so far negative 4-patient urine as well as plasma histoplasma antigen came back positive concerning for histoplasma infection in this patient who did have extensive pneumonia, patient slowly clinically improving on liposomal amphotericin B and itraconazole, patient has been insisting on going home prescription for itraco nazole has been sent to the pharmacy,once the patient pulmonary status is stable for discharge from pulmonary performance consultant. Patient will be Able to go home on oral itraconazole and close outpatient follow-up, this was discussed with the medical team Time with Patient: Less than 30
[2021-07-22] MEDS: carvediloL 3.125 MG TAB PO SCH (20:15)
[2021-07-22] MEDS: diphenhydrAMINE 50 MG/ML 1 ML VIAL IVP SCH (20:15)
[2021-07-22] MEDS: HYDROCORTISONE SUCCINATE 100 MG/2 ML VIAL IV SCH (20:15)
[2021-07-22] MEDS: ALPRAZolam 0.5 MG TAB PO PRN (22:49)
[2021-07-23] MEDS: IPRATROPIUM-ALBUTEROL 3 ML NEB INHALATION PRN ×2 (07:04→10:49)
[2021-07-23] MEDS: SYMBICORT 80-4.5 MCG INHALER INHALATION SCH (07:05)
[2021-07-23 07:22] LABS: Anisocytosis Slight; Basophils # (A) 0.1 k/uL (0-0.2); Basophils % (A) 1 %; Eosinophils # (A) 0.2 k/uL (0-0.7); Eosinophils % (A) 1 %; HCT 35.1 % (39.0-53.0); HGB 10.7 gm/dL (13.0-17.5); Hypochromasia Marked; Lymphocytes # (A) 2.1 k/uL (1.0-4.8); Lymphocytes % (A) 12 %; MCH 27.4 pg (25.0-35.0); MCHC 30.4 g/dL (31.0-37.0); MCV 90.1 fL (80.0-100.0); Mean Platelet Volume 7.8; Monocytes # (A) 0.9 k/uL (0-1.0); Monocytes % (A) 5 %; Neutrophils # (A) 14.5 k/uL (1.3-7.7); Neutrophils % (A) 81 %; Platelet Count 506 k/uL (150-450); WBC 17.9 k/uL (3.8-10.6)
[2021-07-23] MEDS: IPRATROPIUM 0.5 MG/2.5 ML NEBU INHALATION SCH ×2 (07:23→10:49)
[2021-07-23 07:33] LABS: African American GFR (CKD) >90 (>60 ml/min/1.73 sqM); Anion Gap 8 mmol/L; Blood Urea Nitrogen 33 mg/dL (9-20); Calcium 8.9 mg/dL (8.4-10.2); Carbon Dioxide 29 mmol/L (22-30); Chloride 100 mmol/L (98-107); Glucose 115 mg/dL (74-99); Non-African American GFR(CKD) >90 (>60 ml/min/1.73 sqM); Potassium 4.6 mmol/L (3.5-5.1); Sodium 137 mmol/L (137-145)
[2021-07-23 09:03] VITALS: TEMP 98
[2021-07-23] MEDS: DOCUSATE 100 MG CAP PO SCH (09:12)
[2021-07-23] MEDS: NICOTINE 21MG/24HR PATCH TRANSDERM SCH (09:13)
[2021-07-23] MEDS: LACTOBACILLUS ACIDOPH & BULGAR 1 EACH PACKET PO SCH (09:13)
[2021-07-23] MEDS: ASPIRIN 81 MG PO SCH (09:13)
[2021-07-23] MEDS: ITRACONAZOLE 100 MG CAP PO SCH (09:13)
[2021-07-23] MEDS: HEPARIN SODIUM,PORCINE/PF 5,000 UNIT/0.5 ML SYRINGE SQ SCH (09:13)
[2021-07-23] MEDS: predniSONE 10 MG TAB PO SCH (09:13)
[2021-07-23] MEDS: polyethylene glycoL 3350 17 GM POWD.PACK PO SCH (09:15)
[2021-07-23] MEDS: NON FORMULARY DRUG (Buprenorphine Hcl/Naloxone Hcl [Suboxone 8 Mg-2 Mg Sl Film] 1 EACH Fil SUBLINGUAL SCH (09:15)
[2021-07-23] MEDS: FUROSEMIDE 40 MG TAB PO SCH (09:16)
[2021-07-23 11:59] VITALS: RESP 16
[2021-07-23 12:00] VITALS: BP 135/77; PULSE 107
--- NOTE | 2021-07-23 13:17 | P.PN ---
Subjective Progress Note Date: 07/23/21 Principal diagnosis: Histoplasma pneumonia Patient was reevaluated today on 07/20/21, he is presently on 5 L nasal cannula with O2 saturation of 89%. Feeling better, breathing easier, no fever no chills, hardly any cough. Remains on amphotericin B and is also on itraconazole. Renal functioning remains stable. Clinically the patient seems to be responding to the treatment quite well. He will eventually need to be discharged home on itraconazole, and decision to stop amphotericin will be done by infectious disease on the case. Reevaluated today on 07/21/21, patient is doing well, remains on 6 L nasal cannula, develop shortness of breath with any activity, today he has a bit of a cough but unable to clear secretions well. Remains on itraconazole and amphotericin B. He had a PICC line placed, and I believe the infectious disease physician may consider sending the patient home on IV amphotericin B and oral itraconazole. WBC count today is 15.0 hemoglobin 9.5 *Normal renal profile is normal. The patient is seen today 07/22/2021 in follow-up on the regular medical floor. He is currently sitting up at the bedside. Awake and alert in no acute distress. He is maintaining O2 saturations in the low 90s-80s on 5 L high flow nasal cannula. He denies any worsening shortness of breath. He has a loose nonproductive cough. No fever chills. Rhonchi wash cultures revealed no growth. White count 19.7. Hemoglobin 10.7. Platelets 526. Sodium 135 potassium 4.1. BUN 33. Creatinine 0.1. He is continued on DuoNeb inhalations, Symbicort, Solu-Cortef. Serum histoplasma was positive. He is on amphotericin B per infectious disease. He is quite anxious to go home. Reevaluated today on 07/23/2021, patient was not discharged yesterday, although I cleared for discharge. Patient is doing well, asymptomatic, he definitely wants to go home. Family asymptomatic. Of course he has shortness of breath with any activity. Hardly any cough no wheezing no fever no chills no hemoptysis and no chest pain. Objective - Vital Signs Vital signs: Vital Signs Temp 98.0 F 07/23/21 09:02 Pulse 107 H 07/23/21 11:45 Resp 16 07/23/21 11:30 BP 135/77 07/23/21 11:45 Pulse Ox 93 L 07/23/21 11:45 Intake & Output 07/22/21 07/23/21 07/23/21 18:59 06:59 18:59 Intake Total 721 42 4240 Output Total 1000 1250 550 Balance -280 -1230 770 Intake: IV 20 Invasive Line 3 20 Oral 720 1320 Output: Urine 1000 1250 550 Other: Voiding Method Bedside Commode Bedside Commode Urinal Urinal # Voids 0 # Bowel Movements 1 - Exam GENERAL EXAM: Revealed a 56-year-old white male in no distress. On 5 L nasal cannula. HEAD: Normocephalic/atraumatic. ENT: PERRLA, EOMI, nonicteric, no neck masses no JVD. CHEST: No chest wall deformity. Symmetrical expansion. LUNGS: Diminished breath sound bilaterally no rhonchi and no wheezes CVS: Regular rate and rhythm, normal S1 and S2, no gallops, no murmurs, no rubs ABDOMEN: Soft, nontender. No hepatosplenomegaly, normal bowel sounds, no guarding or rigidity. EXTREMITIES: No clubbing, no edema, no cyanosis, 2+ pulses and upper and lower extremities. MUSCULOSKELETAL: Muscle strength and tone normal. SKIN: No rashes CENTRAL NERVOUS SYSTEM: Alert and oriented 3 focal deficits. PSYCHIATRIC: Normal mood affect and normal mental status examination. - Labs CBC & Chem 7: 07/23/21 06:46 07/23/21 06:46 Labs: Abnormal Lab Results - Last 24 Hours (Table) 07/23/21 07/23/21 Range/Units 06:46 06:46 WBC 17.9 H (3.8-10.6) k/uL RBC 3.90 L (4.30-5.90) m/uL Hgb 10.7 L (13.0-17.5) gm/dL Hct 35.1 L (39.0-53.0) % MCHC 30.4 L (31.0-37.0) g/dL RDW 18.0 H (11.5-15.5) % Plt Count 506 H (150-450) k/uL Neutrophils # 14.5 H (1.3-7.7) k/uL BUN 33 H (9-20) mg/dL Glucose 115 H (74-99) mg/dL Assessment and Plan Assessment: Impression: Acute on chronic hypoxic respiratory failure secondary to histoplasma pneumonia and underlying COPD. History of bullous emphysema History of myocardial infarction Paroxysmal atrial fibrillation Coronary artery disease and previous stent placement History of chronic CHF and systolic dysfunction ejection fraction of 30-35% History of Suboxone abuse History of generalized anxiety disorder. Recommendation: Agree with discharge planning today. Continue bronchodilators Continue oxygen at home at 5 L Continue itraconazole. Continue incentive spirometry Will clear the patient for discharge if cleared by infectious disease Keep appointment as scheduled with Dr. Lundberg. Continue long-term itraconazole therapy. Prognosis remains guarded. We will continue to follow Time with Patient: Less than 30
--- NOTE | 2021-07-23 22:28 | P.DS ---
Providers Date of admission: 06/30/21 13:29 Expected date of discharge: 07/23/21 Attending physician: Kylah Wilkerson MD Consults: 06/30/21 08:16 Consult Physician Routine Consulting Provider: Marisol Lundberg Consult Reason/Comments: pneumonia Do you want consulting provider notified?: Yes 07/01/21 07:55 Consult Physician Routine Consulting Provider: Adryan Hankins Consult Reason/Comments: Pneumonia Do you want consulting provider notified?: Yes Primary care physician: Celso Garcia MD Hospital Course: Discharge Diagnosis: Pneumonia secondary to histoplasmosis infection AE COPD Acute on chronic hypoxic respiratory failure Acute exacerbation of systolic CHF with EF 30-35 % ASCAD Thrombocytosis Tobacco abuse Underweight with BMI 18.2 Coronary artery disease Paroxysmal atrial fibrillation Hospital Course: Patient is a 56-year-old male with known coronary artery disease status post multiple stents, severe COPD, hypertension, systolic congestive heart failure with ejection fraction 30-35%, and recent hospitalization from 06/19-06/26 for pneumonia ( had BAL with jet only, sent home on 4 L nasal cannula, Augmentin, and prednisone) ho presented to the ER with complaints of lower extremity edema and fevers. In the ER he underwent an extensive evaluation. He is on have a fever of 101.4. Laboratory analysis demonstrated a white blood cell count of 14.3. Chest x-ray showed again right-sided pneumonia that appeared improved from prior. He was started on Zosyn and arrangements are made for admission. Pulmonology and infectious disease were consulted and vancomycin was added. His white blood cell count improved, however his chest x-ray worsened. HIV status was negative. His fungal cultures from prior admission are pending. Patient was maintained on IV antibiotics. Initial beta D glucan came back negative. Cultures demonstrated Jet but fungal cultures were pending at time of discharge However his histoplasma antibody as well as urine antigen came back positive and he was ultimately started on itraconazole on amphotericin B. He made slow continued progress back to baseline. On the morning of 07/23 he was determined stable for discharge. Imaging: Initial chest x-ray, some improvement in aeration CT chest: Severe COPD with progressive pulmonary consolidation likely representing progressive pneumonia, enlarged lymph nodes Procedures: PICC line 07/03 Bronchoscopy with BAL and transbronchial biopsies 07/07 Pathology: Hypocellular specimen, features of organizing pneumonia with respiratory bronchiolitis negative for neoplasm Labs: - CrAg, galactomannan, [id number] negative - MRSA, HIV negative; Immunoglobulin G subgroup panel WNL - Histoplasma yeast CF Ab 1:16, mycel CF Ab 1:128; - Histoplasma immunodiffusion M/H precipitins are positive, this is 100% specific for acute active histoplasmosis, -oddly no granulomas seen on biopsy or hyphael elements seen on PAS, GMS stains - atypical histoplasma fungal presentation -Fungal Cx from 06/23, pending, will be updated 07/24 per Lab -Fungal Cx from 07/07, pending, will be updated 07/24 per Lab -blood histoplasma Ab pending result -urine histoplasma Ab + on 07/17 Follow-up: After consult for 30 days, continue with Lasix, Coreg. Follow-up with your family member caretaker in 1 week, Dr. Garcia 07/27, Dr. Hi burger on 08/03, Dr. Lundberg on 08/06 Patient seen and examined at bedside. He reports he wants to go home. Dyspnea is manageable. Already made arrangements for portable oxygen. No chest pain or unusual shortness of breath at this time. Eating and drinking well. No diarrhea or constipation. He is aware of the importance of follow-up Vital signs reviewed and stable. General: non toxic, no distress, appears older than stated age Derm: warm, dry Head: atraumatic, normocephalic, symmetric, temporal and buccal wasting Eyes: EOMI, no lid lag, anicteric sclera Mouth: no lip lesion, mucus membranes moist Cardiovascular: S1S2 reg, no murmur, positive posterior tibial pulse bilateral, Lungs: Decreased breath sounds bilateral , no accessory muscle use Abdominal: soft, nontender to palpation, no guarding, no appreciable organomegaly Ext: no gross muscle atrophy, no edema, no contractures Neuro: CN II-XI grossly intact, no focal neuro deficits Psych: Alert, oriented, appropriate affect A total of 45 minutes of time were spent preparing this complex discharge summary . Patient Condition at Discharge: Fair Plan - Discharge Summary Discharge Rx Participant: Yes New Discharge Prescriptions: New Itraconazole [Sporanox] 200 mg PO BID 30 Days #120 capsule polyethylene glycoL 3350 [Miralax] 17 gm PO DAILY packet Furosemide [Lasix] 40 mg PO DAILY #30 tab Acetaminophen Tab [Tylenol] 650 mg PO Q6HR PRN tab PRN Reason: Fever And/ Or Pain Sodium Chloride 0.65% Nasal [Deep Sea (Saline)] 1 spray NASAL Q4HR PRN ml PRN Reason: Dry Nasal Passages predniSONE [Deltasone] 20 mg PO DAILY #7 tab Continue Buprenorphine HCl/Naloxone HCl [Suboxone 8 mg-2 mg Sl Film] 1.5 film SL DAILY Aspirin [Adult Low Dose Aspirin EC] 81 tab PO DAILY Nicotine 21Mg/24Hr Patch [Habitrol] 1 patch TRANSDERM DAILY Atorvastatin [Lipitor] 40 mg PO HS carvediloL [Coreg] 3.125 mg PO HS Albuterol Inhaler [Ventolin Hfa Inhaler] 2 puff INHALATION RT-QID PRN PRN Reason: Shortness Of Breath Fluticasone/Umeclidin/Vilanter [Trelegy Ellipta 200-62.5-25] 1 puff INHALATION RT-DAILY Discontinued Amoxicillin/Potassium Clav [Augmentin 875-125 Tablet] 1 tab PO Q12HR 5 Days #10 tab Discharge Medication List Buprenorphine HCl/Naloxone HCl [Suboxone 8 mg-2 mg Sl Film] 1.5 film SL DAILY 03/13/15 [History] Aspirin [Adult Low Dose Aspirin EC] 81 tab PO DAILY 03/28/17 [History] Albuterol Inhaler [Ventolin Hfa Inhaler] 2 puff INHALATION RT-QID PRN 06/19/21 [History] Atorvastatin [Lipitor] 40 mg PO HS 06/19/21 [History] Fluticasone/Umeclidin/Vilanter [Trelegy Ellipta 200-62.5-25] 1 puff INHALATION RT-DAILY 06/19/21 [History] Nicotine 21Mg/24Hr Patch [Habitrol] 1 patch TRANSDERM DAILY 06/19/21 [History] carvediloL [Coreg] 3.125 mg PO HS 06/29/21 [History] Acetaminophen Tab [Tylenol] 650 mg PO Q6HR PRN tab 07/03/21 [Rx] Furosemide [Lasix] 40 mg PO DAILY #30 tab 07/03/21 [Rx] Itraconazole [Sporanox] 200 mg PO BID 30 Days #120 capsule 07/22/21 [Rx] Sodium Chloride 0.65% Nasal [Deep Sea (Saline)] 1 spray NASAL Q4HR PRN ml 07/23/21 [Rx] polyethylene glycoL 3350 [Miralax] 17 gm PO DAILY packet 07/23/21 [Rx] predniSONE [Deltasone] 20 mg PO DAILY #7 tab 07/23/21 [Rx] Follow up Appointment(s)/Referral(s): Joshua Simmons MD [Other] - 1 Week ([employer] -unable to get through. Please call to schedule appointment) Celso Garcia MD [Primary Care Provider] - 07/27/21 11:30 am (Tuesday) Adryan Hankins MD [STAFF PHYSICIAN] - 08/03/21 1:45 pm (Tuesday) Marisol Lundberg MD [STAFF PHYSICIAN] - 08/06/21 3:00 pm () Activity/Diet/Wound Care/Special Instructions: Activity: as tolerated Diet: regular Special Instructions: Assure you follow-up with all appointments. [facility] (phone [phone] fax:[phone]) has been referred to supply home oxygen and portable concentrator at discharge. Please contact them if any questions. Discharge Disposition: HOME SELF-CARE
== END 2021-07-23 12:47 | disposition home or self-care (01) | DRG 853 ==
LOC: EC 14:57 → 6NMEDSUR 18:24 → OBSVTOIN 06-30 13:29 → 3SCARD 07-09 13:29
PROVIDERS: ADMIT Internal Medicine; ATTEND Internal Medicine
PROC: 02HV33Z Insertion of Infusion Device into Superior Vena Cava, Percutaneous Approach (ICD-10-PCS; 2021-07-03)
PROC: 0BBD8ZX Excision of Right Middle Lung Lobe, Via Natural or Artificial Opening Endoscopic, Diagnostic (ICD-10-PCS; principal; 2021-07-07 12:30)
PROC: 0B9D8ZZ Drainage of Right Middle Lung Lobe, Via Natural or Artificial Opening Endoscopic (ICD-10-PCS; principal; 2021-07-07 12:30)
PROC: 0BDD8ZX Extraction of Right Middle Lung Lobe, Via Natural or Artificial Opening Endoscopic, Diagnostic (ICD-10-PCS; principal; 2021-07-07 12:30)
PROC: 5A0935A Assistance with Respiratory Ventilation, Less than 24 Consecutive Hours, High Flow/Velocity Cannula (ICD-10-PCS; 2021-07-09)
DX: A41.89 Other specified sepsis (principal); B39.2 Pulmonary histoplasmosis capsulati, unspecified; J96.21 Acute and chronic respiratory failure with hypoxia; I50.23 Acute on chronic systolic (congestive) heart failure; J16.8 Pneumonia due to other specified infectious organisms; Z68.1 Body mass index [BMI] 19.9 or less, adult; D64.9 Anemia, unspecified; D75.839 Thrombocytosis, unspecified; F17.210 Nicotine dependence, cigarettes, uncomplicated; F41.1 Generalized anxiety disorder; I11.0 Hypertensive heart disease with heart failure; I25.10 Atherosclerotic heart disease of native coronary artery without angina pectoris; I25.2 Old myocardial infarction; I25.5 Ischemic cardiomyopathy; I48.0 Paroxysmal atrial fibrillation; J84.89 Other specified interstitial pulmonary diseases; J43.9 Emphysema, unspecified; R63.6 Underweight; Z20.822 Contact with and (suspected) exposure to COVID-19; Z79.82 Long term (current) use of aspirin; Z99.81 Dependence on supplemental oxygen; Z79.899 Other long term (current) drug therapy; Z82.49 Family history of ischemic heart disease and other diseases of the circulatory system; Z91.19 Patient's noncompliance with other medical treatment and regimen; Z95.5 Presence of coronary angioplasty implant and graft; Z95.810 Presence of automatic (implantable) cardiac defibrillator; Z87.01 Personal history of pneumonia (recurrent); Z98.890 Other specified postprocedural states; Z79.891 Long term (current) use of opiate analgesic; Z88.8 Allergy status to other drugs, medicaments and biological substances
CPT/HCPCS: 31623; 31624; 31625; 36415; 36573; 71045; 71046; 71250; 80048; 80053; 80076; 80202; 80299; 81003; 82103; 82565; 82785; 82787; 83605; 83735; 83880; 84145; 84484; 85025; 85027; 85610; 85652; 85730; 86140; 86480; 86698; 87040; 87070; 87075; 87102; 87116; 87205; 87206; 87252; 87305; 87327; 87385; 87390; 87449; 87496; 87498; 87502; 87529; 87634; 87635; 87798; 88104; 88108; 88305; 88312; 89050; 93005; 94640; 94760; 96374; 99285

== ENCOUNTER 2021-07-26 15:13 | Emergency (ER) | payer MEDICARE, OTHER ==
[2021-07-26 15:26] VITALS: RESP 18
--- NOTE | 2021-07-26 15:49 | ED ---
General Adult HPI - General Source: patient, family Mode of arrival: wheelchair Limitations: no limitations <Kendrick Mejia - Last Filed: 07/26/21 16:04> <Terry Ponce - Last Filed: 07/26/21 17:43> - General Chief complaint: GI Bleed Stated complaint: GI Bleed/Blood in stool Time Seen by Provider: 07/26/21 15:40 - History of Present Illness Initial comments: Dictation was produced using [employer] dictation software. please excuse any grammatical, word or spelling errors. Chief Complaint: Patient is 56-year-old male just discharged from the hospital 3 days ago presents to the emergency department for bright red blood per rectum History of Present Illness: Patient is a 56-year-old male who just discharged from the hospital for histoplasmosis pneumonia. He was in the hospital for susana ral weeks. Just discharged 3 days ago. He was diagnosed with histoplasmosis pneumonia. He was sent home with supplemental oxygen. Patient has been doing well since being at home until this morning he started to have some suprapubic discomfort. He went to the bathroom and had bright red blood per rectum. 2 bloody bowel movements. Patient denies any rectal pain or abdominal pain at the moment. Denies any nausea or lightheadedness. Sister and daughter at the bedside state that patient does not seem pale. Has no history of GI bleed. Patient became anxious and states that he started to have a panic attack. Does not take any panic regulation medications. He is currently on a steroid taper. The ROS documented in this emergency department record has been reviewed and confirmed by me. Those systems with pertinent positive or negative responses have been documented in the HPI. All other systems are other negative and/or noncontributory. PHYSICAL EXAM: General Impression: Alert and oriented x3, not in acute distress, nasal cannula placed at 4 L HEENT: Normocephalic atraumatic, extra-ocular movements intact, pupils equal and reactive to light bilaterally, mucous membranes moist. Cardiovascular: Heart regular rate and rhythm Chest: Able to complete full sentences, no retractions, no tachypnea Abdomen: abdomen soft, non-tender, non-distended, no organomegaly Musculoskeletal: Pulses present and equal in all extremities, no peripheral edema Motor: no focal deficits noted Neurological: CN II-XII grossly intact, no focal motor or sensory deficits noted Skin: Intact with no visualized rashes Psych: Normal affect and mood Rectal exam: There is gross blood on digital rectal exam, no anal fissures or hemorrhoids or palpatory masses. ED course: 56-year-old male presents to the emergency department for 2 episodes of bright red blood per rectum. Signs upon arrival shows heart rate of 114, rest of vital signs within acceptable limits. Chart review was performed patient was hospitalized for several days treated respiratory failure secondary to histoplasmosis pneumonia. Patient care sent out to Dr. Ponce pending labs (Kendrick Mejia) - Related Data Home Medications Medication Instructions Recorded Confirmed Buprenorphine HCl/Naloxone HCl 1.5 film SL DAILY 03/13/15 06/29/21 [Suboxone 8 mg-2 mg Sl Film] Aspirin [Adult Low Dose Aspirin EC] 81 tab PO DAILY 03/28/17 06/29/21 Albuterol Inhaler [Ventolin Hfa 2 puff INHALATION RT-QID PRN 06/19/21 06/29/21 Inhaler] Atorvastatin [Lipitor] 40 mg PO HS 06/19/21 06/29/21 Fluticasone/Umeclidin/Vilanter 1 puff INHALATION RT-DAILY 06/19/21 06/29/21 [Trelegy Ellipta 200-62.5-25] Nicotine 21Mg/24Hr Patch [Habitrol] 1 patch TRANSDERM DAILY 06/19/21 06/29/21 carvediloL [Coreg] 3.125 mg PO HS 06/29/21 06/29/21 Previous Rx's Medication Instructions Recorded Acetaminophen Tab [Tylenol] 650 mg PO Q6HR PRN tab 07/03/21 Furosemide [Lasix] 40 mg PO DAILY #30 tab 07/03/21 Itraconazole [Sporanox] 200 mg PO BID 30 Days #120 capsule 07/22/21 Sodium Chloride 0.65% Nasal [Deep 1 spray NASAL Q4HR PRN ml 07/23/21 Sea (Saline)] polyethylene glycoL 3350 [Miralax] 17 gm PO DAILY packet 07/23/21 predniSONE [Deltasone] 20 mg PO DAILY #7 tab 07/23/21 Allergies Allergy/AdvReac Type Severity Reaction Status Date / Time clopidogrel bisulfate Allergy Dyspnea,HIV Verified 07/26/21 15:22 [From Plavix] ES,SWELLING Review of Systems ROS Other: All systems not noted in ROS Statement are negative. <Kendrick Mejia - Last Filed: 07/26/21 16:04> ROS Other: All systems not noted in ROS Statement are negative. <Terry Ponce - Last Filed: 07/26/21 17:43> ROS Statement: Those systems with pertinent positive or pertinent negative responses have been documented in the HPI. 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, takes saboxone Last Myocardial Infarction Date:: 2008 History of Any Multi-Drug Resistant Organisms: None Reported Past Surgical History: Heart Catheterization, Heart Catheterization With Stent, Hernia Repair, Pacemaker Additional Past Surgical History / Comment(s): CARPAL TUNNEL BILATERAL, Heart cath 9 times with 5 stents Past Anesthesia/Blood Transfusion Reactions: No Reported Reaction Date of Last Stent Placement:: 2010 Type of Cardiac Device: Permanent Pacemaker, AICD Device Placement Date:: 2008 Past Psychological History: No Psychological Hx Reported Smoking Status: Current every day smoker Past Alcohol Use History: None Reported Past Drug Use History: None Reported - Past Family History Father Family Medical History: No Reported History Mother Family Medical History: Myocardial Infarction (MD) <Kendrick Mejia - Last Filed: 07/26/21 16:04> General Exam Limitations: no limitations <Kendrick Mejia - Last Filed: 07/26/21 16:04> Course <Terry Ponce - Last Filed: 07/26/21 17:43> Vital Signs 07/26/21 07/26/21 07/26/21 15:22 16:05 16:46 Temperature 98.0 F Pulse Rate 114 H 102 H 101 H Respiratory 18 18 18 Rate Blood Pressure 123/79 126/92 120/76 O2 Sat by Pulse 98 95 95 Oximetry - Reevaluation(s) Reevaluation #1: 07/26/21 16:51 Patient was endorsed to me by Dr. Mejia secondary to shift change. Patient s tates that he has had about 3-4 bloody bowel movements since yesterday. Patient denies having any other symptoms or complaints. Patient denies anticoagulant medication use. Patient denies dizziness/lightheadedness, dyspnea, any pain, nausea or vomiting, or any other symptoms or complaints. Patient's abdomen is currently soft and nontender on examination. Patient's tachycardia has improved while in the ED. Patient and family are aware the patient's test results, and they all agree with transfer to [facility] at this time for admission and GI evaluation. We do not have GI coverage at our hospital today. 07/26/21 16:58 Case, H&P, test results and ED management thus far were discussed with Dr. Hill (ED physician at [facility]). He accepts ambulance transfer to the [facility] ED. He has no further recommendations at this time. (Terry Ponce) EKG Findings - EKG Comments: EKG Findings:: Normal sinus rhythm, no ectopy, ventricular rate of 99 bpm, nor mal IA interval, nonspecific intraventricular conduction delay, QRS duration of 132 ms, normal QT interval, normal axis <Terry Ponce - Last Filed: 07/26/21 17:43> Medical Decision Making - Lab Data Result diagrams: 07/26/21 15:53 07/26/21 15:53 <Terry Ponce - Last Filed: 07/26/21 17:43> - Medical Decision Making Patient is mildly tachycardic, but not hypotensive. Patient's hemoglobin is 8.6. Patient denies taking any anticoagulant medication. Patient has a soft and nontender abdominal exam. Given the patient's reported rectal bleeding and hemoglobin of 8.6, I feel that the patient should be admitted to a hospital for observation and GI evaluation. There is no GI coverage at our hospital today. Patient has been accepted for ambulance transfer to [facility]. Patient and family agree with this plan. (Terry Ponce) - Lab Data Lab Results 07/26/21 07/26/21 07/26/21 Range/Units 15:53 15:53 16:00 WBC 18.9 H (3.8-10.6) k/uL RBC 3.12 L (4.30-5.90) m/uL Hgb 8.6 L D (13.0-17.5) gm/dL Hct 27.6 L (39.0-53.0) % MCV 88.4 (80.0-100.0) fL MCH 27.6 (25.0-35.0) pg MCHC 31.2 (31.0-37.0) g/dL RDW 18.5 H (11.5-15.5) % Plt Count 489 H (150-450) k/uL MPV 7.8 Neutrophils % 88 % Lymphocytes % 7 % Monocytes % 3 % Eosinophils % 1 % Basophils % 0 % Neutrophils # 16.6 H (1.3-7.7) k/uL Lymphocytes # 1.4 (1.0-4.8) k/uL Monocytes # 0.5 (0-1.0) k/uL Eosinophils # 0.1 (0-0.7) k/uL Basophils # 0.1 (0-0.2) k/uL Hypochromasia Moderate Anisocytosis Slight PT (9.0-12.0) sec INR (<1.2) APTT (22.0-30.0) sec Sodium 129 L (137-145) mmol/L Potassium 5.5 H (3.5-5.1) mmol/L Chloride 97 L (98-107) mmol/L Carbon Dioxide 23 (22-30) mmol/L Anion Gap 9 mmol/L BUN 53 H (9-20) mg/dL Creatinine 1.03 (0.66-1.25) mg/dL Est GFR (CKD-EPI)AfAm >90 (>60 ml/min/1.73 sqM) Est GFR (CKD-EPI)NonAf 81 (>60 ml/min/1.73 sqM) Glucose 140 H (74-99) mg/dL Calcium 8.7 (8.4-10.2) mg/dL Stool Occult Blood (Negative) Blood Type A Positive Blood Type Recheck A Pos Bld Type Recheck Status No Antibody Screen NEGATIVE Spec Expiration Date 07/29/2021 - 235207/26/21 07/26/21 Range/Units 16:04 16:59 WBC (3.8-10.6) k/uL RBC (4.30-5.90) m/uL Hgb (13.0-17.5) gm/dL Hct (39.0-53.0) % MCV (80.0-100.0) fL MCH (25.0-35.0) pg MCHC (31.0-37.0) g/dL RDW (11.5-15.5) % Plt Count (150-450) k/uL MPV Neutrophils % % Lymphocytes % % Monocytes % % Eosinophils % % Basophils % % Neutrophils # (1.3-7.7) k/uL Lymphocytes # (1.0-4.8) k/uL Monocytes # (0-1.0) k/uL Eosinophils # (0-0.7) k/uL Basophils # (0-0.2) k/uL Hypochromasia Anisocytosis PT 10.5 (9.0-12.0) sec INR 1.0 (<1.2) APTT 20.0 L (22.0-30.0) sec Sodium (137-145) mmol/L Potassium (3.5-5.1) mmol/L Chloride (98-107) mmol/L Carbon Dioxide (22-30) mmol/L Anion Gap mmol/L BUN (9-20) mg/dL Creatinine (0.66-1.25) mg/dL Est GFR (CKD-EPI)AfAm (>60 ml/min/1.73 sqM) Est GFR (CKD-EPI)NonAf (>60 ml/min/1.73 sqM) Glucose (74-99) mg/dL Calcium (8.4-10.2) mg/dL Stool Occult Blood Positive (Negative) Blood Type Blood Type Recheck Bld Type Recheck Status Antibody Screen Spec Expiration Date Critical Care Time Critical Care Time: Yes Total Critical Care Time: 30 <Terry Ponce - Last Filed: 07/26/21 17:43> Disposition <Kendrick Mejia - Last Filed: 07/26/21 16:04> Is patient prescribed a controlled substance at d/c from ED?: No Time of Disposition: 16:59 - Out of Hospital Transfer - Req. Specs Out of Hospital Transfer - Requested Specifics: Other Emergency Center ([facility] emergency department) <Terry Ponce - Last Filed: 07/26/21 17:43> Clinical Impression: Gastrointestinal hemorrhage, Anemia, Hyperkalemia Disposition: OTHER INSTITUTION NOT DEFINED Condition: Stable Referrals: Cavataio,Celso, MD [Primary Care Provider] - 1-2 days
[2021-07-26] MEDS ORDERED: PANTOPRAZOLE 40 MG/10 ML VIAL IVP STA (16:15)
[2021-07-26] MEDS ORDERED: SODIUM CHLORIDE 0.9% 1,000 ML IV ONE (16:15)
[2021-07-26 16:20] LABS: African American GFR (CKD) >90 (>60 ml/min/1.73 sqM); Anion Gap 9 mmol/L; Blood Urea Nitrogen 53 mg/dL (9-20); Calcium 8.7 mg/dL (8.4-10.2); Carbon Dioxide 23 mmol/L (22-30); Chloride 97 mmol/L (98-107); Glucose 140 mg/dL (74-99); Non-African American GFR(CKD) 81 (>60 ml/min/1.73 sqM); Sodium 129 mmol/L (137-145)
[2021-07-26 16:21] LABS: Anisocytosis Slight; Basophils # (A) 0.1 k/uL (0-0.2); Basophils % (A) 0 %; Eosinophils # (A) 0.1 k/uL (0-0.7); Eosinophils % (A) 1 %; HCT 27.6 % (39.0-53.0); Hypochromasia Moderate; Lymphocytes # (A) 1.4 k/uL (1.0-4.8); Lymphocytes % (A) 7 %; MCH 27.6 pg (25.0-35.0); MCHC 31.2 g/dL (31.0-37.0); MCV 88.4 fL (80.0-100.0); Mean Platelet Volume 7.8; Monocytes # (A) 0.5 k/uL (0-1.0); Monocytes % (A) 3 %; Neutrophils # (A) 16.6 k/uL (1.3-7.7); Neutrophils % (A) 88 %; Platelet Count 489 k/uL (150-450); RBC 3.12 m/uL (4.30-5.90); RDW 18.5 % (11.5-15.5); WBC 18.9 k/uL (3.8-10.6)
[2021-07-26 16:31] LABS: Potassium 5.5 mmol/L (3.5-5.1)
[2021-07-26 16:32] LABS: HGB 8.6 gm/dL (13.0-17.5)
[2021-07-26 17:25] LABS: Prothrombin Time 10.5 sec (9.0-12.0)
[2021-07-26 18:28] VITALS: BP 136/100; PULSE 100; TEMP 98.2
== END 2021-07-26 18:28 | disposition other institution (70) ==
LOC: EC 15:13
DX: K92.2 Gastrointestinal hemorrhage, unspecified (principal); D64.9 Anemia, unspecified; E87.5 Hyperkalemia; I48.91 Unspecified atrial fibrillation; I25.10 Atherosclerotic heart disease of native coronary artery without angina pectoris; I50.9 Heart failure, unspecified; J44.9 Chronic obstructive pulmonary disease, unspecified; I25.2 Old myocardial infarction; F17.200 Nicotine dependence, unspecified, uncomplicated; Z79.82 Long term (current) use of aspirin; Z95.0 Presence of cardiac pacemaker
CPT/HCPCS: 99291; 96374; 96361; 36415; 93005; 86900; 86901; 80048; 85025; 85610; 85730; 86850; 82272; C9113

== ENCOUNTER 2021-07-29 23:28 | Observation (INO) | payer MEDICARE, OTHER ==
[2021-07-30 03:44] LABS: Anisocytosis Slight; Basophils # (A) 0.1 k/uL (0-0.2); Basophils % (A) 1 %; Eosinophils # (A) 0.9 k/uL (0-0.7); Eosinophils % (A) 7 %; HCT 26.2 % (39.0-53.0); HGB 8.4 gm/dL (13.0-17.5); Hypochromasia Slight; Lymphocytes # (A) 1.6 k/uL (1.0-4.8); Lymphocytes % (A) 13 %; MCH 27.7 pg (25.0-35.0); MCHC 31.9 g/dL (31.0-37.0); MCV 86.8 fL (80.0-100.0); Mean Platelet Volume 7.8; Monocytes # (A) 0.8 k/uL (0-1.0); Monocytes % (A) 7 %; Neutrophils # (A) 8.7 k/uL (1.3-7.7); Neutrophils % (A) 71 %; Platelet Count 376 k/uL (150-450); Poikilocytosis Slight; RBC 3.02 m/uL (4.30-5.90); RDW 18.4 % (11.5-15.5); WBC 12.2 k/uL (3.8-10.6)
--- NOTE | 2021-07-30 03:45 | ED ---
Fever HPI - General Chief Complaint: Fever Stated Complaint: fever Time Seen by Provider: 07/30/21 02:36 Source: patient Mode of arrival: wheelchair - History of Present Illness Initial Comments: This patient is a 56-year-old man who presents to have evaluation of fever. Patient states that his fever had actually started while he was in [facility] on July 29. The patient had been seen here on the , found to have some gastrointestinal bleeding and transferred to the other facility as there is no GI coverage. The patient had upper and lower endoscopy on the prior day. He states that he was then discharged on the even though he did have a fever at the other hospital. He was given Tylenol 1 home. The temperature persisted throughout most of the day. As it was still going on this evening he decided to be evaluated here. The patient did take Tylenol prior to coming in. He states in addition to the fever he has had chills. He denies other symptoms. His recent history is Given by the fact that he had been admitted for most of June with pneumonia and found to have histoplasmosis. While he was in the hospital he was being treated with amphotericin and ketoconizole. He was sent home taking oral diflucan. Complaint: fever Onset/Timin -: hour(s) Temperature Source: oral Context: recent procedure, recent antibiotic use Associated Symptoms: chills Treatments Prior to Arrival: Acetaminophen - Related Data Home Medications Medication Instructions Recorded Confirmed Buprenorphine HCl/Naloxone HCl 0.5 film SL TID PRN 03/13/15 08/04/21 [Suboxone 8 mg-2 mg Sl Film] Aspirin [Adult Low Dose Aspirin EC] 81 tab PO DAILY 03/28/17 08/04/21 Albuterol Inhaler [Ventolin Hfa 2 puff INHALATION RT-QID PRN 06/19/21 08/04/21 Inhaler] Atorvastatin [Lipitor] 40 mg PO HS 06/19/21 08/04/21 Fluticasone/Umeclidin/Vilanter 1 puff INHALATION RT-DAILY 06/19/21 08/04/21 [Trelegy Ellipta 200-62.5-25] Nicotine 21Mg/24Hr Patch [Habitrol] 1 patch TRANSDERM DAILY 06/19/21 08/04/21 carvediloL [Coreg] 3.125 mg PO HS 06/29/21 08/04/21 Pantoprazole [Protonix] 40 mg PO DAILY@1200 08/04/21 08/04/21 Sodium Chloride 0.65% Nasal [Deep 1 spray EA NOSTRIL Q4HR PRN 08/04/21 08/04/21 Sea (Saline)] Previous Rx's Medication Instructions Recorded Acetaminophen Tab [Tylenol] 650 mg PO Q6HR PRN tab 07/03/21 Furosemide [Lasix] 60 mg PO DAILY #45 tab 07/31/21 Itraconazole [Sporanox] 200 mg PO TID 30 Days #120 capsule 07/31/21 Allergies Allergy/AdvReac Type Severity Reaction Status Date / Time clopidogrel bisulfate Allergy Anaphylaxis Verified 08/04/21 21:41 [From Plavix] Review of Systems ROS Statement: Those systems with pertinent positive or pertinent negative responses have been documented in the HPI. ROS Other: All systems not noted in ROS Statement are negative. Constitutional: Reports: fever, chills. 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, takes saboxone Last Myocardial Infarction Date:: 2008 History of Any Multi-Drug Resistant Organisms: None Reported Past Surgical History: Heart Catheterization, Heart Catheterization With Stent, Hernia Repair, Pacemaker Additional Past Surgical History / Comment(s): CARPAL TUNNEL BILATERAL, Heart cath 9 times with 5 stents Past Anesthesia/Blood Transfusion Reactions: No Reported Reaction Date of Last Stent Placement:: 2010 Type of Cardiac Device: Permanent Pacemaker, AICD Device Placement Date:: 2008 Past Psychological History: No Psychological Hx Reported Smoking Status: Current every day smoker Past Alcohol Use History: None Reported Past Drug Use History: None Reported - Past Family History Father Family Medical History: No Reported History Mother Family Medical History: Myocardial Infarction (ND) General Exam General appearance: alert, in no apparent distress Head exam: Present: atraumatic, normocephalic Eye exam: Present: normal appearance. Absent: scleral icterus, conjunctival injection Neck exam: Present: normal inspection, full ROM. Absent: meningismus Respiratory exam: Present: normal lung sounds bilaterally. Absent: respiratory distress, wheezes, rales, rhonchi, stridor Cardiovascular Exam: Present: regular rate, normal rhythm, normal heart sounds. Absent: systolic murmur, diastolic murmur, rubs, gallop GI/Abdominal exam: Present: soft. Absent: distended, tenderness, guarding, rebound, rigid, mass Extremities exam: Present: normal inspection, normal capillary refill. Absent: pedal edema, calf tenderness Back exam: Present: normal inspection. Absent: CVA tenderness (R), CVA tenderness (L) Neurological exam: Present: alert Skin exam: Present: warm, dry, intact, normal color. Absent: rash Course Vital Signs 07/30/21 07/30/21 07/30/21 00:04 05:37 07:00 Temperature 98.8 F 99.2 F 98.7 F Pulse Rate 105 H 90 Pulse Rate [ 118 H Left] Respiratory 20 20 18 Rate Blood Pressure 103/68 104/64 Blood Pressure 133/69 [Left Arm] O2 Sat by Pulse 95 94 L 90 L Oximetry Medical Decision Making - Medical Decision Making Patient's 56-year-old man being treated for histoplasmosis infection. Had recent upper and lower endoscopy at [facility], and then developed fever. The patient on exam has no findings concerning for complication related to the recent procedures. His abdomen is soft and nontender. He is not having abdominal pain or any other gastrointestinal symptoms. - Lab Data Result diagrams: 07/30/21 03:14 07/31/21 12:49 Lab Results 07/30/21 07/30/21 07/30/21 Range/Units 03:14 03:14 03:14 WBC 12.2 H (3.8-10.6) k/uL RBC 3.02 L (4.30-5.90) m/uL Hgb 8.4 L (13.0-17.5) gm/dL Hct 26.2 L (39.0-53.0) % MCV 86.8 (80.0-100.0) fL MCH 27.7 (25.0-35.0) pg MCHC 31.9 (31.0-37.0) g/dL RDW 18.4 H (11.5-15.5) % Plt Count 376 (150-450) k/uL MPV 7.8 Neutrophils % 71 % Lymphocytes % 13 % Monocytes % 7 % Eosinophils % 7 % Basophils % 1 % Neutrophils # 8.7 H (1.3-7.7) k/uL Lymphocytes # 1.6 (1.0-4.8) k/uL Monocytes # 0.8 (0-1.0) k/uL Eosinophils # 0.9 H (0-0.7) k/uL Basophils # 0.1 (0-0.2) k/uL Hypochromasia Slight Poikilocytosis Slight Anisocytosis Slight Sodium 130 L (137-145) mmol/L Potassium 3.3 L (3.5-5.1) mmol/L Chloride 97 L (98-107) mmol/L Carbon Dioxide 27 (22-30) mmol/L Anion Gap 6 mmol/L BUN 9 (9-20) mg/dL Creatinine 0.63 L (0.66-1.25) mg/dL Est GFR (CKD-EPI)AfAm >90 (>60 ml/min/1.73 sqM) Est GFR (CKD-EPI)NonAf >90 (>60 ml/min/1.73 sqM) Glucose 114 H (74-99) mg/dL Calcium 7.6 L (8.4-10.2) mg/dL Total Bilirubin 0.8 (0.2-1.3) mg/dL AST 22 (17-59) U/L ALT 22 (4-49) U/L Alkaline Phosphatase 90 (38-126) U/L C-Reactive Protein 16.7 H (<1.0) mg/dL NT-Pro-B Natriuret Pep 2720 pg/mL Total Protein 5.8 L (6.3-8.2) g/dL Albumin 2.7 L (3.5-5.0) g/dL Urine Color Urine Appearance (Clear) Urine pH (5.0-8.0) Ur Specific [place] (1.001-1.035) Urine Protein (Negative) Urine Glucose (UA) (Negative) Urine Ketones (Negative) Urine Blood (Negative) Urine Nitrite (Negative) Urine Bilirubin (Negative) Urine Urobilinogen (<2.0) mg/dL Ur Leukocyte Esterase (Negative) Miscellaneous Test Misc Test Result 07/30/21 07/30/21 Range/Units 03:14 03:53 WBC (3.8-10.6) k/uL RBC (4.30-5.90) m/uL Hgb (13.0-17.5) gm/dL Hct (39.0-53.0) % MCV (80.0-100.0) fL MCH (25.0-35.0) pg MCHC (31.0-37.0) g/dL RDW (11.5-15.5) % Plt Count (150-450) k/uL MPV Neutrophils % % Lymphocytes % % Monocytes % % Eosinophils % % Basophils % % Neutrophils # (1.3-7.7) k/uL Lymphocytes # (1.0-4.8) k/uL Monocytes # (0-1.0) k/uL Eosinophils # (0-0.7) k/uL Basophils # (0-0.2) k/uL Hypochromasia Poikilocytosis Anisocytosis Sodium (137-145) mmol/L Potassium (3.5-5.1) mmol/L Chloride (98-107) mmol/L Carbon Dioxide (22-30) mmol/L Anion Gap mmol/L BUN (9-20) mg/dL Creatinine (0.66-1.25) mg/dL Est GFR (CKD-EPI)AfAm (>60 ml/min/1.73 sqM) Est GFR (CKD-EPI)NonAf (>60 ml/min/1.73 sqM) Glucose (74-99) mg/dL Calcium (8.4-10.2) mg/dL Total Bilirubin (0.2-1.3) mg/dL AST (17-59) U/L ALT (4-49) U/L Alkaline Phosphatase (38-126) U/L C-Reactive Protein (<1.0) mg/dL NT-Pro-B Natriuret Pep pg/mL Total Protein (6.3-8.2) g/dL Albumin (3.5-5.0) g/dL Urine Color Yellow Urine Appearance Clear (Clear) Urine pH 6.0 (5.0-8.0) Ur Specific [place] 1.014 (1.001-1.035) Urine Protein Trace H (Negative) Urine Glucose (UA) Negative (Negative) Urine Ketones Negative (Negative) Urine Blood Negative (Negative) Urine Nitrite Negative (Negative) Urine Bilirubin Negative (Negative) Urine Urobilinogen <2.0 (<2.0) mg/dL Ur Leukocyte Esterase Negative (Negative) Miscellaneous Test Itraconazole, Serum Misc Test Result See Comment Disposition Clinical Impression: Febrile illness, acute Disposition: ADMITTED IP TO THIS HOSP Condition: Good
[2021-07-30 04:08] LABS: Appearance,Urine Clear (Clear); Bilirubin,Urine Negative (Negative); Blood,Urine Negative (Negative); Color,Urine Yellow; Glucose,Urine (UA) Negative (Negative); Ketones,Urine Negative (Negative); Leukocyte Esterase,Urine Negative (Negative); Nitrite,Urine Negative (Negative); Protein,Urine Trace (Negative); Specific Gravity,Urine 1.014 (1.001-1.035); Urobilinogen,Urine <2.0 mg/dL (<2.0)
[2021-07-30 04:39] LABS: ALT 22 U/L (4-49); AST 22 U/L (17-59); African American GFR (CKD) >90 (>60 ml/min/1.73 sqM); Albumin 2.7 g/dL (3.5-5.0); Alkaline Phosphatase 90 U/L (38-126); Anion Gap 6 mmol/L; Blood Urea Nitrogen 9 mg/dL (9-20); Calcium 7.6 mg/dL (8.4-10.2); Carbon Dioxide 27 mmol/L (22-30); Chloride 97 mmol/L (98-107); Glucose 114 mg/dL (74-99); Non-African American GFR(CKD) >90 (>60 ml/min/1.73 sqM); Potassium 3.3 mmol/L (3.5-5.1); Sodium 130 mmol/L (137-145); Total Bilirubin 0.8 mg/dL (0.2-1.3); Total Protein 5.8 g/dL (6.3-8.2)
[2021-07-30] MEDS ORDERED: VANCOMYCIN IV PER PHARMACY 1 EACH MISC MISCELLANE PRN (04:49)
--- NOTE | 2021-07-30 04:53 | P.HPIM ---
History of Present Illness H&P Date: 07/30/21 Patient is a 56-year-old male with a PMH of recently diagnosed histoplasmosis pneumonia, severe COPD, systolic CHF with EF 30-35%, chronic hypoxic respiratory failure on 4 L nasal cannula oxygen continuously at home coronary artery disease status post multiple stents, paroxysmal A. fib, who presents to the emergency room with complaints of fever. Of note, the patient had a prolonged hospital stay when he was admitted on 06/30 for sepsis of unclear etiology, found to have histoplasmosis via antigen and antibody testing, and was discharged on itraconazole on 07/23. The patient subsequently presented back to the emergency room on 07/26 with complaints of GI bleeding for which she was transferred to [facility] where he underwent an endoscopy and colonoscopy without any notable findings. He reports receiving 1 unit of PRBCs however. The patient reports being discharged from there on 07/29 if but states that on the day of discharge, he had developed a fever for which she was given Tylenol with no new antibiotics. He states compliance with his itraconazole at home however. Reports developing fever and subjective chills shortly after his discharge on 07/29, which prompted him to come back to the emergency room. He denies any additional complaints however. Denied experiencing chest discomfort, shortness of breath, nausea, vomiting, abdominal pain, diarrhea, urinary complaints, hea daches, weakness, numbness, tingling. Denied bloody or black tarry stools. In the emergency room, laboratory evaluation was remarkable for leukocytosis of 12.2, hemoglobin 8.4, and an unremarkable UA. Review of systems: Pertinent positives and negatives as discussed in HPI, a complete review of s ystems was performed and all other systems are negative. Physical examination: General: Chronically ill-appearing frail male, appears at stated age Derm: no unusual rashes/lesions no unusual ecchymoses, warm, dry Head: atraumatic, normocephalic, symmetric Eyes: EOMI, no lid lag, anicteric sclera, pupils equal round reactive to light ENT: Nose and ears atraumatic, no thrush, no pharyngeal erythema Neck: No thyromegaly, no cervical lymphadenopathy, trachea midline, supple Mouth: no lip lesion, mucus membranes moist Cardiovascular: S1S2 reg, no murmur, positive posterior tibial pulse bilateral, no edema, capillary refill less than 2 seconds Lungs: CTA bilateral, no rhonchi, no rales , no accessory muscle use Abdominal: soft, nontender to palpation, no guarding, no appreciable organomegaly, normal bowel sounds Ext: no gross muscle atrophy, muscle strength 4 out of 5 in all 4 extremities grossly, no contractures, Neuro: CN II-XI grossly intact, light touch intact all 4 extremities, finger to nose within normal limits, Psych: Alert, oriented, appropriate affect Assessment/plan SIRS, unclear etiology -C/w home Itraconazole and start patient on vancomycin and Zosyn for now -Infectious disease consult -Follow up blood cultures Leukocytosis -Improved from baseline Normocytic anemia -At baseline, continue to monitor Chronic conditions: Chronic CHF, COPD, coronary artery disease -Continue with home meds DVT prophylaxis -Heparin subcu The patient is admitted with an anticipated greater than 2 midnight stay for evaluation of SIRS CODE STATUS: Full Code Discussed with: Patient Anticipated discharge place: Home I saw and evaluated the patient apparently today, and I agree with the documented assessment and plan by my colleague earlier this morning. Given patient's low ejection fraction, as well as his recent blood transfusion and his IV fluids for his recent hospitalization for GI bleed, I have concerns of this patient is volume overloaded and that his dyspnea on exertion as well as hypoxia and dyspnea at rest as well is secondary to this. Patient has a histoplasma active infection, doubt that he has a superimposed bacterial pneumonia at this point. We will obtain ID and pulmonary consultations as well. I added prednisone, DuoNeb's, Lasix to his medication regimen. He'll continue his itraconazole, ID to consider amphotericin. 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, takes saboxone Last Myocardial Infarction Date:: 2008 History of Any Multi-Drug Resistant Organisms: None Reported Past Surgical History: Heart Catheterization, Heart Catheterization With Stent, Hernia Repair, Pacemaker Additional Past Surgical History / Comment(s): CARPAL TUNNEL BILATERAL, Heart cath 9 times with 5 stents Past Anesthesia/Blood Transfusion Reactions: No Reported Reaction Date of Last Stent Placement:: 2010 Type of Cardiac Device: Permanent Pacemaker, AICD Device Placement Date:: 2008 Past Psychological History: No Psychological Hx Reported Smoking Status: Current every day smoker Past Alcohol Use History: None Reported Past Drug Use History: None Reported - Past Family History Father Family Medical History: No Reported History Mother Family Medical History: Myocardial Infarction ([place]) Medications and Allergies Home Medications Medication Instructions Recorded Confirmed Type Buprenorphine HCl/Naloxone HCl 1.5 film SL DAILY 03/13/15 07/30/21 History [Suboxone 8 mg-2 mg Sl Film] Aspirin [Adult Low Dose Aspirin EC] 81 tab PO DAILY 03/28/17 07/30/21 History Albuterol Inhaler [Ventolin Hfa 2 puff INHALATION RT-QID PRN 06/19/21 07/30/21 History Inhaler] Atorvastatin [Lipitor] 40 mg PO HS 06/19/21 07/30/21 History Fluticasone/Umeclidin/Vilanter 1 puff INHALATION RT-DAILY 06/19/21 07/30/21 History [Trelegy Ellipta 200-62.5-25] Nicotine 21Mg/24Hr Patch [Habitrol] 1 patch TRANSDERM DAILY 06/19/21 07/30/21 History carvediloL [Coreg] 3.125 mg PO HS 06/29/21 07/30/21 History Acetaminophen Tab [Tylenol] 650 mg PO Q6HR PRN tab 07/03/21 07/30/21 Rx Furosemide [Lasix] 40 mg PO DAILY #30 tab 07/03/21 07/30/21 Rx Itraconazole [Sporanox] 200 mg PO BID 30 Days #120 capsule 07/22/21 07/30/21 Rx Sodium Chloride 0.65% Nasal [Deep 1 spray NASAL Q4HR PRN ml 07/23/21 07/30/21 Rx Sea (Saline)] polyethylene glycoL 3350 [Miralax] 17 gm PO DAILY packet 07/23/21 07/30/21 Rx Allergies Allergy/AdvReac Type Severity Reaction Status Date / Time clopidogrel bisulfate Allergy Dyspnea,HIV Verified 07/30/21 07:55 [From Plavix] ES,SWELLING Physical Exam Osteopathic Statement: *. No significant issues noted on an osteopathic structural exam other than those noted in the History and Physical/Consult. Vitals: Vital Signs Temp Pulse Resp BP Pulse Ox 07/30/21 00:04 98.8 F 105 H 20 103/68 95 Intake and Output 07/29/21 07/29/21 07/30/21 14:59 22:59 06:59 Other: Weight 50.802 kg Results CBC & Chem 7: 07/30/21 03:14 07/30/21 03:14 Labs: Abnormal Lab Results - Last 24 Hours (Table) 07/30/21 07/30/21 Range/Units 03:14 03:53 WBC 12.2 H (3.8-10.6) k/uL RBC 3.02 L (4.30-5.90) m/uL Hgb 8.4 L (13.0-17.5) gm/dL Hct 26.2 L (39.0-53.0) % RDW 18.4 H (11.5-15.5) % Neutrophils # 8.7 H (1.3-7.7) k/uL Eosinophils # 0.9 H (0-0.7) k/uL Urine Protein Trace H (Negative)
[2021-07-30 05:01] LABS: C Reactive Protein 16.7 mg/dL (<1.0)
[2021-07-30] MEDS ORDERED: NALOXONE 0.4 MG/ML 1 ML VIAL IV PRN (05:37)
[2021-07-30] MEDS ORDERED: VANCOMYCIN 1,250 MG in SODIUM CHLORIDE 0.9% 250 ML IVPB ONE (06:00)
[2021-07-30] MEDS ORDERED: PIPERACILLIN-TAZOBACTAM 3.375 GM in SODIUM CHLORIDE 0.9% 100 ML IVPB SCH (06:00)
[2021-07-30] MEDS ORDERED: FUROSEMIDE 10 MG/ML 10 ML VIAL IV STA (08:26)
[2021-07-30] MEDS ORDERED: IPRATROPIUM-ALBUTEROL 3 ML NEB INHALATION PRN (08:29)
--- NOTE | 2021-07-30 08:40 | XR ---
EXAMINATION TYPE: XR chest 2V DATE OF EXAM: 07/30/2021 COMPARISON: X-ray dated 07/19/2021 HISTORY: Histoplasmosis infection, SOB TECHNIQUE: Frontal and lateral views of the chest are obtained. FINDINGS: Apparent interval progression of the previously seen thick patchy opacity involving the right upper a nd to a lesser extent midlung zone. The right lung base lateral opacities are more apparent today. Grossly unchanged heterogeneous patchy opacity in the left upper lung zone. Fibrotic changes are seen in the lung apices bilaterally. Suspected minimal pleural effusions. Unchanged cardiomediastinal anand houette and left chest wall single lead pacemaker. IMPRESSION: Progressive right pulmonary opacities as detailed above, concerning for progressive acute infection. Recommend clinical correlation and follow-up to resolution.
[2021-07-30] MEDS ORDERED: predniSONE 20 MG TAB PO SCH (09:00)
[2021-07-30] MEDS: HEPARIN SODIUM,PORCINE/PF 5,000 UNIT/0.5 ML SYRINGE SQ SCH ×2 (09:13→17:50)
[2021-07-30] MEDS: NICOTINE 21MG/24HR PATCH TRANSDERM SCH (10:19)
[2021-07-30] MEDS: IPRATROPIUM-ALBUTEROL 3 ML NEB INHALATION SCH ×3 (11:33→21:09)
[2021-07-30] MEDS: ITRACONAZOLE 100 MG CAP PO SCH ×3 (13:40→20:51)
[2021-07-30] MEDS ORDERED: VANCOMYCIN 1,000 MG in SODIUM CHLORIDE 0.9% 250 ML IVPB SCH (14:00)
[2021-07-30] MEDS: FUROSEMIDE 10 MG/ML 4 ML VIAL IV SCH (20:51)
--- NOTE | 2021-07-30 23:08 | P.CONS ---
History of Present Illness - Reason for Consult Consult date: 07/30/21 Pneumonia Requesting physician: Kylah Wilkerson - Chief Complaint Fever 1 day - History of Present Illness Patient is a 56-year-old male with a past medical history significant for COPD and smoking related his admission to the hospital and the patient was diagnosed with a pulmonary histoplasmosis on the basis of positive blood and urine antigen and did have positive serology patient was treated with IV amphotericin B and oral itraconazole patient was stabilized and subsequent discharged home on oral itraconazole patient mention he presented back to the ER on 07/26/2021 with the bleeding per rectum and the patient was transferred to [facility] as there was no GI service available patient mention he did have upper and lower GI and was diagnosed with some polyps no evidence of any bleeding peptic ulcer patient mention he was subsequently discharged home however the patient is presented back to the hospital with a 24-hour concerning for fever at home, the patient denies having any URI symptoms denies any chest pain or shortness of breath patient did have a cough but no worsening and is not bringing up any sputum no nausea vomiting no abdominal pain no diarrhea patient on presentation to the hospital was afebrile and did have a low-grade fever of 99.2 F patient had been setting 96% on 3 L nasal cannula, patient did have a white count 4.2 with a left shift creatinine was normal but there was abnormal CRP was 16.7 urine has been negative patient did have a chest x-ray progressive pulmonary opacities on the right side patient was started on vancomycin was admitted to the hospital infectious disease was consulted for further management of antibiotic therapy Review of Systems Positive point has been mentioned in the HPI rest of the systems are negative Past Medical History Past Medical History: Atrial Fibrillation, Coronary Artery Disease (CAD), Chest Pain / Angina, Heart Failure, COPD, Myocardial Infarction ([place]) Additional Past Medical History / Comment(s): Pt recently sent from [facility] ER to [facility] for lower GI bleed/he states he had endoscopies and was told he had an ulcer/polyps and hemorrhoids, pt also recently admitted to [facility] and treated for double pneumonia/sepsis/histoplasmosis infection and was sent home with home oxygen. Other hx: Severe COPD, past norco addiction and is on suboxone past 4 year and it is being weaned down, MIs x3. Last Myocardial Infarction Date:: 2008 History of Any Multi-Drug Resistant Organisms: None Reported Past Surgical History: AICD, Heart Catheterization, Heart Catheterization With Stent, Hernia Repair, Orthopedic Surgery, Pacemaker Additional Past Surgical History / Comment(s): PCI with stents, AICD/pacer, EGD/colonoscopy, bronchoscopies x2, bilateral inguinal hernia repairs, bilateral carpal tunnel releases. Past Anesthesia/Blood Transfusion Reactions: No Reported Reaction Date of Last Stent Placement:: 2010 Type of Cardiac Device: Permanent Pacemaker, AICD Device Placement Date:: 2008 Smoking Status: Former smoker - Past Family History Father Family Medical History: No Reported History Additional Family Medical History / Comment(s): Father pt believes d/t his spouses passing. Mother Family Medical History: Myocardial Infarction ([place]) Additional Family Medical History / Comment(s): Mother of a massive [place] at the age of 53yrs. Medications and Allergies Home Medications Medication Instructions Recorded Confirmed Type Buprenorphine HCl/Naloxone HCl 1.5 film SL DAILY 03/13/15 07/30/21 History [Suboxone 8 mg-2 mg Sl Film] Aspirin [Adult Low Dose Aspirin EC] 81 tab PO DAILY 03/28/17 07/30/21 History Albuterol Inhaler [Ventolin Hfa 2 puff INHALATION RT-QID PRN 06/19/21 07/30/21 History Inhaler] Atorvastatin [Lipitor] 40 mg PO HS 06/19/21 07/30/21 History Fluticasone/Umeclidin/Vilanter 1 puff INHALATION RT-DAILY 06/19/21 07/30/21 History [Trelegy Ellipta 200-62.5-25] Nicotine 21Mg/24Hr Patch [Habitrol] 1 patch TRANSDERM DAILY 06/19/21 07/30/21 History carvediloL [Coreg] 3.125 mg PO HS 06/29/21 07/30/21 History Acetaminophen Tab [Tylenol] 650 mg PO Q6HR PRN tab 07/03/21 07/30/21 Rx Furosemide [Lasix] 40 mg PO DAILY #30 tab 07/03/21 07/30/21 Rx Itraconazole [Sporanox] 200 mg PO BID 30 Days #120 capsule 07/22/21 07/30/21 Rx Sodium Chloride 0.65% Nasal [Deep 1 spray NASAL Q4HR PRN ml 07/23/21 07/30/21 Rx Sea (Saline)] polyethylene glycoL 3350 [Miralax] 17 gm PO DAILY packet 07/23/21 07/30/21 Rx Allergies Allergy/AdvReac Type Severity Reaction Status Date / Time clopidogrel bisulfate Allergy Dyspnea,HIV Verified 07/30/21 07:55 [From Plavix] ES,SWELLING Physical Exam Vitals: Vital Signs Temp Pulse Pulse Resp BP BP Pulse Ox 07/30/21 21:20 105 H 07/30/21 21:09 100 07/30/21 16:41 98.6 F 95 17 96 07/30/21 16:07 115 H 07/30/21 16:06 97 07/30/21 15:57 105 H 07/30/21 13:59 98.8 F 107 H 18 94/61 94 L 07/30/21 11:42 110 H 07/30/21 11:33 106 H 07/30/21 07:00 98.7 F 118 H 18 133/69 90 L 07/30/21 05:37 99.2 F 90 20 104/64 94 L 07/30/21 00:04 98.8 F 105 H 20 103/68 95 Intake and Output 07/30/21 07/30/21 07/31/21 14:59 22:59 06:59 Intake Total 720 Output Total 500 Balance 220 Intake: Oral 720 Output: Urine 500 Other: Weight 50.802 kg GENERAL DESCRIPTION: Middle-aged male lying in bed, no distress. No tachypnea or accessory muscle of respiration use. HEENT: Shows Pallor , no scleral icterus. Oral mucous membrane is dry. No pharyngeal erythema or thrush NECK: Trachea central, no thyromegaly. LUNGS: Unlabored breathing. Decreased intensity of breath sounds. No wheeze or crackle. HEART: S1, S2, regular rate and rhythm. No loud murmur ABDOMEN: Soft, no tenderness , guarding or rigidity, no organomegaly EXTREMITIES: No edema of feet. SKIN: No rash, no masses palpable. NEUROLOGICAL: The patient is awake, alert, oriented x3, mood and affect normal. Results CBC & Chem 7: 07/30/21 03:14 07/30/21 03:14 Labs: Abnormal Lab Results - Last 24 Hours (Table) 07/30/21 07/30/21 07/30/21 Range/Units 03:14 03:14 03:53 WBC 12.2 H (3.8-10.6) k/uL RBC 3.02 L (4.30-5.90) m/uL Hgb 8.4 L (13.0-17.5) gm/dL Hct 26.2 L (39.0-53.0) % RDW 18.4 H (11.5-15.5) % Neutrophils # 8.7 H (1.3-7.7) k/uL Eosinophils # 0.9 H (0-0.7) k/uL Sodium 130 L (137-145) mmol/L Potassium 3.3 L (3.5-5.1) mmol/L Chloride 97 L (98-107) mmol/L Creatinine 0.63 L (0.66-1.25) mg/dL Glucose 114 H (74-99) mg/dL Calcium 7.6 L (8.4-10.2) mg/dL C-Reactive Protein 16.7 H (<1.0) mg/dL Total Protein 5.8 L (6.3-8.2) g/dL Albumin 2.7 L (3.5-5.0) g/dL Urine Protein Trace H (Negative) Assessment and Plan (1) Pneumonia Current Visit: No Status: Acute Code(s): J18.9 - PNEUMONIA, UNSPECIFIED ORGANISM SNOMED Code(s): 419728324 Plan: 1patient presented to hospital with fever and this patient has been recently diagnosed and treated for pulmonary histoplasmosis patient respiratory status seems to be stable as the patient is currently down to 3 L nasal cannula and denies any worsening of hospital production x-ray findings show slight worsening however clinically no evidence of any worsening and clinically doubt secondary bacterial pneumonia. 2we will check his itraconazole level 3we will start the patient on itraconazole 200 g 3 times a day We will follow on clinical condition and cultures to further adjust medication if needed Thank you for this consultation will follow this patient along with you Time with Patient: Greater than 30
[2021-07-31] MEDS: HEPARIN SODIUM,PORCINE/PF 5,000 UNIT/0.5 ML SYRINGE SQ SCH ×3 (00:57→09:54)
[2021-07-31 03:58] VITALS: TEMP 97.9
[2021-07-31 08:15] VITALS: BP 106/67; RESP 18
[2021-07-31] MEDS: FUROSEMIDE 10 MG/ML 4 ML VIAL IV SCH (09:45)
[2021-07-31] MEDS: ITRACONAZOLE 100 MG CAP PO SCH (09:45)
[2021-07-31] MEDS: NICOTINE 21MG/24HR PATCH TRANSDERM SCH (09:45)
[2021-07-31] MEDS: IPRATROPIUM-ALBUTEROL 3 ML NEB INHALATION SCH ×2 (10:13→12:46)
--- NOTE | 2021-07-31 11:42 | XR ---
EXAMINATION TYPE: XR chest 2V DATE OF EXAM: 07/31/2021 COMPARISON: Chest x-ray 07/30/2021 HISTORY: Right upper lobe pneumonia TECHNIQUE: Frontal and lateral views of the chest are obtained. FINDINGS: The pleural-parenchymal changes are similar to prior exam, there may be some improvement i n aeration in the upper lobes. No evident pneumothorax or pleural effusion. Cardiac mediastinal sweat shows a stable appearance. IMPRESSION: Suspect some slight interval improvement in aeration.
[2021-07-31 12:31] VITALS: PULSE 116
--- NOTE | 2021-07-31 12:32 | P.CNPUL ---
History of Present Illness Consult date: 07/31/21 Requesting physician: René Dale Reason for consult: abnormal CXR/CT Chief complaint: Fever History of present illness: This is a pleasant 56-year-old male patient with a history of generalized a nxiety disorder, Suboxone abuse, chronic systolic congestive heart failure with ejection fraction 30-35% status post AICD placement, coronary artery disease with previous stent placement, paroxysmal atrial fibrillation, history of opioid abuse currently on Suboxone. He also has a history of acute on chronic hypoxic respiratory failure secondary to underlying COPD and recent diagnosis of histoplasma pneumonia. He also has noted bullous emphysema. He had undergone bronchoscopy with BAL and biopsies on 07/07/2021 during his last admission here and was discharged home on Diflucan. He had previously been on itraconazole and amphotericin B. He was discharged home on 07/23/2021. He represented here to the emergency room on 07/26/2021 with GI bleed and transferred him to [facility] where he had undergone upper and lower endoscopies and was found to have nonbleeding ulcers and hemorrhoids. No intervention was performed. He received 1 unit of packed red blood cells. Subsequently discharged home on 07/29/2021 and presented here again yesterday 07/30/2021 with complaints of fever. He has again been seen by infectious disease and is on itraconazole currently. He is feeling better today compared to yesterday. He sitting up in bed. Awake and alert in no acute distress. He is maintaining O2 saturations in the mid 90s on 3 L/m per nasal cannula. He is currently afebrile. Hemodynamically stable. White count 12.2. Hemoglobin 8.4. Platelets 376. Sodium 1:30. Potassium 3.3. BUN 9. Creatinine 0.63. ProBNP was 2720. He was initiated on IV diuretics. Chest x-ray shows improvement in the aeration of the upper lobe infiltrates right greater than left. Review of Systems REVIEW OF SYSTEMS: CONSTITUTIONAL: Febrile illness. Denies any recent significant weight loss or weight gain. EYES: Denies change in vision. EARS, NOSE, MOUTH, THROAT: Denies headaches, denies sore throat. CARDIOVASCULAR: Denies chest pain, palpitations or syncopal episodes. RESPIRATORY: Denies shortness of breath, cough, congestion or hemoptysis. GASTROINTESTINAL: Denies change in appetite, denies abdominal pain GENITOURINARY: Denies hematuria, denies infections. MUSKULOSKELETAL: Denies pain, denies swelling. INTEGUMENTARY: Denies rash, denies eczema. NEUROLOGICAL: Denies recent memory loss, no recent seizure activity. PSYCHIATRIC: Denies anxiety, denies depression. HEMATOLOGIC/LYMPHATIC: Denies anemia, denies enlarged lymph nodes. Past Medical History Past Medical History: Atrial Fibrillation, Coronary Artery Disease (CAD), Chest Pain / Angina, Heart Failure, COPD, Myocardial Infarction (ME) Additional Past Medical History / Comment(s): Pt recently sent from [facility] ER to [facility] for lower GI bleed/he states he had endoscopies and was told he had an ulcer/polyps and hemorrhoids, pt also recently admitted to [facility] and treated for double pneumonia/sepsis/histoplasmosis infection and was sent home with home oxygen. Other hx: Severe COPD, past norco addiction and is on suboxone past 4 year and it is being weaned down, MIs x3. Last Myocardial Infarction Date:: 2008 History of Any Multi-Drug Resistant Organisms: None Reported Past Surgical History: AICD, Heart Catheterization, Heart Catheterization With Stent, Hernia Repair, Orthopedic Surgery, Pacemaker Additional Past Surgical History / Comment(s): PCI with stents, AICD/pacer, EGD/colonoscopy, bronchoscopies x2, bilateral inguinal hernia repairs, bilateral carpal tunnel releases. Past Anesthesia/Blood Transfusion Reactions: No Reported Reaction Date of Last Stent Placement:: 2010 Type of Cardiac Device: Permanent Pacemaker, AICD Device Placement Date:: 2008 Smoking Status: Former smoker - Past Family History Father Family Medical History: No Reported History Additional Family Medical History / Comment(s): Father pt believes d/t his spouses passing. Mother Family Medical History: Myocardial Infarction (ME) Additional Family Medical History / Comment(s): Mother of a massive ME at the age of 53yrs. Medications and Allergies Home Medications Medication Instructions Recorded Confirmed Type Buprenorphine HCl/Naloxone HCl 1.5 film SL DAILY 03/13/15 07/30/21 History [Suboxone 8 mg-2 mg Sl Film] Aspirin [Adult Low Dose Aspirin EC] 81 tab PO DAILY 03/28/17 07/30/21 History Albuterol Inhaler [Ventolin Hfa 2 puff INHALATION RT-QID PRN 06/19/21 07/30/21 History Inhaler] Atorvastatin [Lipitor] 40 mg PO HS 06/19/21 07/30/21 History Fluticasone/Umeclidin/Vilanter 1 puff INHALATION RT-DAILY 06/19/21 07/30/21 History [Trelegy Ellipta 200-62.5-25] Nicotine 21Mg/24Hr Patch [Habitrol] 1 patch TRANSDERM DAILY 06/19/21 07/30/21 History carvediloL [Coreg] 3.125 mg PO HS 06/29/21 07/30/21 History Acetaminophen Tab [Tylenol] 650 mg PO Q6HR PRN tab 07/03/21 07/30/21 Rx Sodium Chloride 0.65% Nasal [Deep 1 spray NASAL Q4HR PRN ml 07/23/21 07/30/21 Rx Sea (Saline)] polyethylene glycoL 3350 [Miralax] 17 gm PO DAILY packet 07/23/21 07/30/21 Rx Furosemide [Lasix] 60 mg PO DAILY #45 tab 07/31/21 Rx Itraconazole [Sporanox] 200 mg PO TID 30 Days #120 capsule 07/31/21 Rx Allergies Allergy/AdvReac Type Severity Reaction Status Date / Time clopidogrel bisulfate Allergy Dyspnea,HIV Verified 07/30/21 07:55 [From Plavix] ES,SWELLING Physical Exam Vitals: Vital Signs Temp Pulse Pulse Resp BP Pulse Ox 07/31/21 10:23 100 07/31/21 10:13 100 07/31/21 07:00 97.9 F 96 18 106/67 95 07/31/21 00:32 97.9 F 93 17 98/61 93 L 07/30/21 21:20 105 H 07/30/21 21:09 100 07/30/21 20:19 98.1 F 94 17 104/67 94 L 07/30/21 20:00 17 07/30/21 16:41 98.6 F 95 17 96 07/30/21 16:07 115 H 07/30/21 16:06 97 07/30/21 15:57 105 H 07/30/21 13:59 98.8 F 107 H 18 94/61 94 L Intake and Output 07/30/21 07/31/21 07/31/21 22:59 06:59 14:59 Intake Total 240 Balance 240 Intake: Oral 240 Other: # Voids 2 2 GENERAL EXAM: Alert, 56-year-old male patient, on 3 L nasal cannula, comfortable in no apparent distress. HEAD: Normocephalic. EYES: Normal reaction of pupils, equal size. NOSE: Clear with pink turbinates. THROAT: No erythema or exudates. NECK: No masses, no JVD. CHEST: No chest wall deformity. LUNGS: Equal air entry with few scattered rhonchi right greater than left. CVS: S1 and S2 normal with no audible murmur, regular rhythm. ABDOMEN: No hepatosplenomegaly, normal bowel sounds, no guarding or rigidity. SPINE: No scoliosis or deformity SKIN: No rashes CENTRAL NERVOUS SYSTEM: No focal deficits, tone is normal in all 4 extremities. EXTREMITIES: There is no peripheral edema. No clubbing, no cyanosis. Peripheral pulses are intact. Results - Laboratory Findings CBC and BMP: 07/30/21 03:14 07/30/21 03:14 Abnormal lab findings: Abnormal Labs 07/30/21 07/30/21 07/30/21 03:14 03:14 03:53 WBC 12.2 H RBC 3.02 L Hgb 8.4 L Hct 26.2 L RDW 18.4 H Neutrophils # 8.7 H Eosinophils # 0.9 H Sodium 130 L Potassium 3.3 L Chloride 97 L Creatinine 0.63 L Glucose 114 H Calcium 7.6 L C-Reactive Protein 16.7 H Total Protein 5.8 L Albumin 2.7 L Urine Protein Trace H - Diagnostic Findings Chest x-ray: image reviewed Assessment and Plan Assessment: 1 Febrile illness at home. No documented fever here. Recent discharge for acute hypoxic respiratory failure secondary to histoplasmosis. Currently on itraconazole 2 Acute on chronic systolic congestive heart failure, currently on IV diuretics and chest x-ray showing significant improvement 3 Recent hospitalization at [facility] for GI bleed. Upper and lower endoscopies revealed evidence of ulcers and hemorrhoids but no active bleeding. Current hemoglobin 8.4. 4 Bullous emphysema/COPD, on home oxygen since the recent hospitalization on 4 L 5 Prior history of myocardial infarction 6 History of paroxysmal A. fib status post AICD/pacemaker insertion 7 CAD with prior stenting 8 History of CHF with systolic dysfunction 9 Ischemic cardiomyopathy with EF of 30-35%, Status post AICD placement 10 History of laparoscopic bilateral inguinal hernia repair 11 History of prescription narcotic abuse currently on Suboxone 12 History of anxiety Plan: The patient was seen and evaluated The patient has remained afebrile Continued on itraconazole Continues on oxygen at 3 L per nasal cannula, has home oxygen X-ray showing improvement post diuretics Cleared for discharge from the pulmonary standpoint I have personally seen and examined the patient, performed the documentation and the assessment and plan as written. Number of minutes spent on the visit: 20.
[2021-07-31] MEDS ORDERED: VANCOMYCIN TROUGH DUE 1 EACH MISC MISCELLANE ONE (13:00)
[2021-07-31 13:48] LABS: ALT 25 U/L (4-49); AST 26 U/L (17-59); African American GFR (CKD) >90 (>60 ml/min/1.73 sqM); Albumin 2.9 g/dL (3.5-5.0); Albumin/Globulin Ratio 0.9; Alkaline Phosphatase 91 U/L (38-126); Anion Gap 10 mmol/L; Blood Urea Nitrogen 17 mg/dL (9-20); Calcium 8.3 mg/dL (8.4-10.2); Carbon Dioxide 29 mmol/L (22-30); Chloride 94 mmol/L (98-107); Globulin 3.3 g/dL; Glucose 118 mg/dL (74-99); Non-African American GFR(CKD) >90 (>60 ml/min/1.73 sqM); Potassium 2.9 mmol/L (3.5-5.1); Sodium 133 mmol/L (137-145); Total Bilirubin 0.6 mg/dL (0.2-1.3); Total Protein 6.2 g/dL (6.3-8.2)
[2021-07-31 14:04] LABS: C Reactive Protein 15.8 mg/dL (<1.0)
--- NOTE | 2021-07-31 15:43 | P.DS ---
Providers Date of admission: 07/30/21 08:27 Expected date of discharge: 07/31/21 Attending physician: René Dale MD Consults: 07/30/21 04:50 Consult Physician Urgent Consulting Provider: Adryan Hankins Consult Reason/Comments: sepsis Do you want consulting provider notified?: Yes 07/30/21 10:51 Consult Physician Routine Consulting Provider: Delmar Montana Consult Reason/Comments: pulm histoplasmosis, end-stage COPD Do you want consulting provider notified?: Yes Primary care physician: [facility] Course: Acute on Chronic Systolic Heart Failure, EF 30-35% Pulmonary histoplasmosis COPD without exacerbation Coronary artery disease Hypertension Hyperlipidemia Patient is a 56-year-old male with a PMH of recently diagnosed histoplasmosis pneumonia, severe COPD, systolic CHF with EF 30-35%, chronic hypoxic respiratory failure on 4 L nasal cannula oxygen continuously at home coronary artery disease status post multiple stents, paroxysmal A. fib, who presents to the emergency room with complaints of fever and dyspnea on exertion. In the emergency room, laboratory evaluation was remarkable for leukocytosis of 12.2, hemoglobin 8.4, and an unremarkable UA. Patient was admitted to the hospitalist service for further management. Chest x-ray demonstrated findings of the patchy opacities that appeared to have had progressed from previous x-rays taken during last admission. However, it was noted that patient had received blood products as well as significant amount of fluids during his evaluation for GI bleed, and the patient was extremely orthopneic and dyspneic at rest during evaluation following day. He was subsequently started on IV Lasix, and rapidly improved. After 1 day of hospitalization, patient's chest x-ray was repeated and noted significantly improved aeration both the lower lung hendricks as well as the upper lung hendricks. Patient's oxygen requirement actually decreased from his baseline of 4 L down to 3 L. He was subsequently discharged home, with an increased dose of Lasix, to be tapered back down by PCP or cardiology in the clinic after physical exam evaluation. Patient was counseled on this. Otherwise, his itraconazole dosing increased from twice a day dosing to 3 times a day dosing. No other changes to medications. I spent 32 minutes coordinating this complex discharge Gen: awake, alert HEENT: normocephalic, atraumatic, good hearing acuity, moist mucous membranes Resp: impaired air exchange, breathing comfortably with no accessory muscle use CVS: good distal perfusion x 4, GI: soft, NTTP, ND : no SPT, no CVAT, sung catheter not present MSK:+ pitting edema, no clubbing Neuro: non-focal, moving all extremities Psych: cooperative, euthymic mood Patient Condition at Discharge: Good Plan - Discharge Summary New Discharge Prescriptions: Continue Buprenorphine HCl/Naloxone HCl [Suboxone 8 mg-2 mg Sl Film] 1.5 film SL DAILY Aspirin [Adult Low Dose Aspirin EC] 81 tab PO DAILY Nicotine 21Mg/24Hr Patch [Habitrol] 1 patch TRANSDERM DAILY Atorvastatin [Lipitor] 40 mg PO HS carvediloL [Coreg] 3.125 mg PO HS polyethylene glycoL 3350 [Miralax] 17 gm PO DAILY packet Albuterol Inhaler [Ventolin Hfa Inhaler] 2 puff INHALATION RT-QID PRN PRN Reason: Shortness Of Breath Fluticasone/Umeclidin/Vilanter [Trelegy Ellipta 200-62.5-25] 1 puff INHALATION RT-DAILY Acetaminophen Tab [Tylenol] 650 mg PO Q6HR PRN tab PRN Reason: Fever And/ Or Pain Sodium Chloride 0.65% Nasal [Deep Sea (Saline)] 1 spray NASAL Q4HR PRN ml PRN Reason: Dry Nasal Passages Changed Furosemide [Lasix] 60 mg PO DAILY #45 tab Itraconazole [Sporanox] 200 mg PO TID 30 Days #120 capsule Discharge Medication List Buprenorphine HCl/Naloxone HCl [Suboxone 8 mg-2 mg Sl Film] 1.5 film SL DAILY 03/13/15 [History] Aspirin [Adult Low Dose Aspirin EC] 81 tab PO DAILY 03/28/17 [History] Albuterol Inhaler [Ventolin Hfa Inhaler] 2 puff INHALATION RT-QID PRN 06/19/21 [History] Atorvastatin [Lipitor] 40 mg PO HS 06/19/21 [History] Fluticasone/Umeclidin/Vilanter [Trelegy Ellipta 200-62.5-25] 1 puff INHALATION RT-DAILY 06/19/21 [History] Nicotine 21Mg/24Hr Patch [Habitrol] 1 patch TRANSDERM DAILY 06/19/21 [History] carvediloL [Coreg] 3.125 mg PO HS 06/29/21 [History] Acetaminophen Tab [Tylenol] 650 mg PO Q6HR PRN tab 07/03/21 [Rx] Sodium Chloride 0.65% Nasal [Deep Sea (Saline)] 1 spray NASAL Q4HR PRN ml 07/23/21 [Rx] polyethylene glycoL 3350 [Miralax] 17 gm PO DAILY packet 07/23/21 [Rx] Furosemide [Lasix] 60 mg PO DAILY #45 tab 07/31/21 [Rx] Itraconazole [Sporanox] 200 mg PO TID 30 Days #120 capsule 07/31/21 [Rx] Follow up Appointment(s)/Referral(s): Delmar Montana DO [Doctor of Osteopathic Medicine] - 08/06/21 3:00 pm Celso Garcia MD [Primary Care Provider] - 1-2 days Lizeth Liu [NON-STAFF] - As Needed Adryan Hankins MD [STAFF PHYSICIAN] - 1 Week Patient Instructions/Handouts: COPD (Chronic Obstructive Pulmonary Disease) (DC), Sepsis (DC) Discharge Disposition: HOME SELF-CARE
--- NOTE | 2021-08-07 16:49 | P.PN ---
Subjective Progress Note Date: 07/31/21 Principal diagnosis: Pulmonary histoplasmosis Patient is a 56-year-old male with a past medical history significant for COPD with extensive infection with recent diagnosis of pulmonary histoplasmosis on outpatient oral Sporanox, presented to the hospital concerning for fever. On today's evaluation that is 07/31/2021, the patient remains to be afebrile, the patient denies having any chest pain no worsening shortness of breath no worsening cough or sputum production no nausea no vomiting no abdominal pain and no diarrhea Objective - Vital Signs Vital signs: Vital Signs Temp 97.9 F 07/31/21 07:00 Pulse 126 H 07/31/21 12:01 Resp 18 07/31/21 07:00 BP 106/67 07/31/21 07:00 Pulse Ox 81 L 07/31/21 12:01 Intake & Output 07/30/21 07/31/21 07/31/21 18:59 06:59 18:59 Intake Total 720 240 Output Total 500 Balance 220 240 Weight 50.802 kg Intake: Oral 720 240 Output: Urine 500 Other: # Voids 2 - Exam GENERAL DESCRIPTION: Middle-aged male lying in bed in no distress RESPIRATORY SYSTEM: Unlabored breathing , decreased intensity of breath sounds no wheeze HEART: S1 S2 regular rate and rhythm , ABDOMEN: Soft , no tenderness EXTREMITIES: No edema feet - Labs CBC & Chem 7: 07/30/21 03:14 07/31/21 12:49 Assessment and Plan (1) Pneumonia Status: Acute Code(s): J18.9 - PNEUMONIA, UNSPECIFIED ORGANISM SNOMED Code(s): 523155038 Plan: 1patient presented to hospital with fever and this patient has been recently diagnosed and treated for pulmonary histoplasmosis patient respiratory status seems to be stable as the patient is currently down to 3 L nasal cannula and denies any worsening of hospital production x-ray findings show slight worsening however clinically no evidence of any worsening and clinically doubt secondary bacterial pneumonia. 2 itraconazole level was requested yesterday is currently pending 3plan is for itraconazole 200 mg twice a day and a close outpatient follow-up does need to be adjusted on the basis of the level, questions and concerns were answered Time with Patient: Less than 30
== END 2021-07-31 14:35 | disposition home or self-care (01) ==
LOC: EC 23:28 → 6NMEDSUR 07-30 05:37 → OBSVTOIN 07-30 08:27 → INTOOBSV 07-30 08:27 → UNDODISIN 07-31 14:35
PROVIDERS: ADMIT Internal Medicine; ATTEND Internal Medicine
DX: I11.0 Hypertensive heart disease with heart failure (principal); I50.23 Acute on chronic systolic (congestive) heart failure; B39.2 Pulmonary histoplasmosis capsulati, unspecified; J43.9 Emphysema, unspecified; I25.10 Atherosclerotic heart disease of native coronary artery without angina pectoris; E78.5 Hyperlipidemia, unspecified; I48.0 Paroxysmal atrial fibrillation; J96.11 Chronic respiratory failure with hypoxia; D64.9 Anemia, unspecified; R65.10 Systemic inflammatory response syndrome (SIRS) of non-infectious origin without acute organ dysfunction; I25.2 Old myocardial infarction; F17.200 Nicotine dependence, unspecified, uncomplicated; K63.5 Polyp of colon; F41.1 Generalized anxiety disorder; F11.10 Opioid abuse, uncomplicated; J96.21 Acute and chronic respiratory failure with hypoxia; I25.5 Ischemic cardiomyopathy; K64.9 Unspecified hemorrhoids; Z99.81 Dependence on supplemental oxygen; Z71.9 Counseling, unspecified; Z95.5 Presence of coronary angioplasty implant and graft; Z95.810 Presence of automatic (implantable) cardiac defibrillator; Z79.82 Long term (current) use of aspirin; Z79.899 Other long term (current) drug therapy; Z79.51 Long term (current) use of inhaled steroids; Z79.891 Long term (current) use of opiate analgesic; Z87.19 Personal history of other diseases of the digestive system; Z88.8 Allergy status to other drugs, medicaments and biological substances; Z82.49 Family history of ischemic heart disease and other diseases of the circulatory system
CPT/HCPCS: 96376 ×2; 96366; 96372 ×2; 96375; 96365; 96367; 99284; 36415; 94640 ×3; 83880; 80053 ×2; 85025; 86140 ×2; 81003; 87040; 84145; 80299; 71046 ×2; G0378 ×2; S4990 ×2; J2543; J3370; J1940 ×3; J7512; J1644 ×2

== ENCOUNTER 2021-08-04 20:10 | Inpatient (IN) | payer MEDICARE, OTHER ==
[2021-08-04] MEDS ORDERED: SODIUM CHLORIDE 0.9% 500 ML 500 ML IV STA (20:21)
[2021-08-04] MEDS ORDERED: SODIUM CHLORIDE 0.9% 1,000 ML IV STA (20:21)
[2021-08-04 20:44] LABS: Glucose,Whole Blood 107 mg/dL (75-99)
[2021-08-04 20:50] LABS: ABG Base Excess 5.6 mmol/L; ABG HCO3 30 mmol/L (21-25); ABG PCO2 42 mmHg (35-45); ABG PH 7.45 (7.35-7.45); ABG PO2 284 mmHg (83-108); ABG TCO2 31 mmol/L (19-24); Allen Test Performed? Yes
[2021-08-04] MEDS ORDERED: SODIUM CHLORIDE 0.9% 500 ML 500 ML IV ONE (21:03)
[2021-08-04] MEDS ORDERED: NOREPINEPHRINE 4 MG in SODIUM CHLORIDE 0.9% 250 ML IV ONE (21:03)
--- NOTE | 2021-08-04 21:14 | XR ---
EXAMINATION TYPE: XR chest 1V portable DATE OF EXAM: 08/04/2021 CLINICAL HISTORY: Left-sided pneumothorax. TECHNIQUE: Single AP portable supine view of the chest is obtained. COMPARISON: Chest x-ray from July 31, 2021 FINDINGS: New Endotracheal tube terminates at the aortic knob level. New orogastric tube projects be low the diaphragm. New basilar pleural pigtail drainage catheter. Persistent left apical pneumothorax with upper lung lateral component slightly larger versus prior estimated 5-10%. Heart size remains within normal limits with single lead pacemaker/defibrillator. Upper lung parench ymal scarring with hilar retraction redemonstrated. Osseous structures are intact. IMPRESSION: 1. New endotracheal and orogastric tubes satisfactory in position. 2. Chronic parenchymal changes and upper lung volume loss redemonstrated. New small to tiny left side d pneumothorax despite pleural drainage catheter placement estimated 5-10%.
[2021-08-04 21:31] LABS: Anisocytosis Slight; Basophils % (A) 0 %; Eosinophils # (A) 0.1 k/uL (0-0.7); Eosinophils % (A) 1 %; Hypochromasia Marked; Lymphocytes # (A) 0.5 k/uL (1.0-4.8); Lymphocytes % (A) 5 %; MCH 26.9 pg (25.0-35.0); MCV 86.7 fL (80.0-100.0); Mean Platelet Volume 7.2; Monocytes # (A) 0.3 k/uL (0-1.0); Monocytes % (A) 3 %; Neutrophils # (A) 9.3 k/uL (1.3-7.7); Neutrophils % (A) 90 %; Platelet Count 423 k/uL (150-450); Poikilocytosis Slight; RBC 2.29 m/uL (4.30-5.90); RDW 17.9 % (11.5-15.5); WBC 10.3 k/uL (3.8-10.6)
[2021-08-04 21:40] LABS: ALT 33 U/L (4-49); AST 42 U/L (17-59); African American GFR (CKD) >90 (>60 ml/min/1.73 sqM); Albumin 2.2 g/dL (3.5-5.0); Alkaline Phosphatase 168 U/L (38-126); Anion Gap 4 mmol/L; Blood Urea Nitrogen 12 mg/dL (9-20); Calcium 6.5 mg/dL (8.4-10.2); Carbon Dioxide 26 mmol/L (22-30); Chloride 104 mmol/L (98-107); Creatine Kinase 30 U/L (55-170); Glucose 97 mg/dL (74-99); Magnesium 1.5 mg/dL (1.6-2.3); Non-African American GFR(CKD) >90 (>60 ml/min/1.73 sqM); Potassium 3.1 mmol/L (3.5-5.1); Sodium 134 mmol/L (137-145); Total Bilirubin 0.6 mg/dL (0.2-1.3)
[2021-08-04 21:55] LABS: Appearance,Urine Clear (Clear); Bilirubin,Urine Negative (Negative); Blood,Urine Negative (Negative); Color,Urine Light Yellow; Glucose,Urine (UA) Negative (Negative); Ketones,Urine Negative (Negative); Leukocyte Esterase,Urine Negative (Negative); Nitrite,Urine Negative (Negative); Protein,Urine Negative (Negative); Specific Gravity,Urine 1.005 (1.001-1.035); Urobilinogen,Urine <2.0 mg/dL (<2.0)
[2021-08-04 21:57] LABS: HCT 19.9 % (39.0-53.0); HGB 6.2 gm/dL (13.0-17.5)
[2021-08-04] MEDS ORDERED: IPRATROPIUM-ALBUTEROL 3 ML NEB INHALATION STA (22:07)
[2021-08-04] MEDS ORDERED: POTASSIUM CHLORIDE 20 MEQ in WATER FOR INJECTION 1 100ML.BAG IVPB STA (22:20)
[2021-08-04] MEDS ORDERED: MIDAZOLAM 1 MG/ML 5 ML VIAL IV STA (22:28)
[2021-08-04] MEDS ORDERED: fentaNYL (PF) 50 MCG/ML 2 ML AMP IV STA (22:29)
[2021-08-04] MEDS: MAGNESIUM SULFATE-D5W PMX 1 GM in DEXTROSE/WATER 1 100ML.BAG IVPB SCH (22:35)
--- NOTE | 2021-08-04 22:35 | ED ---
SOB HPI - General Chief Complaint: Shortness of Breath Stated Complaint: Respiratory Distress Time Seen by Provider: 08/04/21 20:10 Source: family, RN/MD, EMS, RN notes reviewed, old records reviewed Mode of arrival: EMS Limitations: physical limitation - History of Present Illness Initial Comments: 56-year-old male history of multiple medical problems including cardiomyopathy CHF recent admissions to this facility's history of recent histoplasmosis p neumonia history of recent GI bleed who apparently has been having left-sided chest pain over last several days and became short of breath today. EMS was called he was taken to [facility] on arrival there he was intubated relatively quickly after imaging performed found have a left-sided pneumothorax. Pleural decompression catheter was placed with marked improvement in pneumothorax. Patient was transferred here for further evaluation and care. No reports of fevers chills nausea vomiting sweats. Patient is a smoker he does have history of COPD/emphysema. MD Complaint: shortness of breath - Related Data Home Medications Medication Instructions Recorded Confirmed Buprenorphine HCl/Naloxone HCl 0.5 film SL TID PRN 03/13/15 08/04/21 [Suboxone 8 mg-2 mg Sl Film] Aspirin [Adult Low Dose Aspirin EC] 81 tab PO DAILY 03/28/17 08/04/21 Albuterol Inhaler [Ventolin Hfa 2 puff INHALATION RT-QID PRN 06/19/21 08/04/21 Inhaler] Atorvastatin [Lipitor] 40 mg PO HS 06/19/21 08/04/21 Fluticasone/Umeclidin/Vilanter 1 puff INHALATION RT-DAILY 06/19/21 08/04/21 [Otto Ellipta 200-62.5-25] Nicotine 21Mg/24Hr Patch [Habitrol] 1 patch TRANSDERM DAILY 06/19/21 08/04/21 carvediloL [Coreg] 3.125 mg PO HS 06/29/21 08/04/21 Pantoprazole [Protonix] 40 mg PO DAILY@1200 08/04/21 08/04/21 Sodium Chloride 0.65% Nasal [Deep 1 spray EA NOSTRIL Q4HR PRN 08/04/21 08/04/21 Sea (Saline)] Previous Rx's Medication Instructions Recorded Acetaminophen Tab [Tylenol] 650 mg PO Q6HR PRN tab 03/04/22 Furosemide [Lasix] 60 mg PO DAILY #45 tab 07/31/21 Itraconazole [Sporanox] 200 mg PO TID 30 Days #120 capsule 07/31/21 Allergies Allergy/AdvReac Type Severity Reaction Status Date / Time clopidogrel bisulfate Allergy Anaphylaxis Verified 08/04/21 21:41 [From Plavix] Review of Systems ROS Statement: Those systems with pertinent positive or pertinent negative responses have been documented in the HPI. ROS Other: All systems not noted in ROS Statement are negative. Past Medical History Past Medical History: Atrial Fibrillation, Coronary Artery Disease (CAD), Chest Pain / Angina, Heart Failure, COPD, Myocardial Infarction (VT) Additional Past Medical History / Comment(s): Pt recently sent from [facility] ER to [facility] for lower GI bleed/he states he had endoscopies and was told he had an ulcer/polyps and hemorrhoids, pt also recently admitted to [facility] and treated for double pneumonia/sepsis/histoplasmosis infection and was sent home with home oxygen. Other hx: Severe COPD, past norco addiction and is on suboxone past 4 year and it is being weaned down, MIs x3. Last Myocardial Infarction Date:: 2008 History of Any Multi-Drug Resistant Organisms: None Reported Past Surgical History: AICD, Heart Catheterization, Heart Catheterization With Stent, Hernia Repair, Orthopedic Surgery, Pacemaker Additional Past Surgical History / Comment(s): PCI with stents, AICD/pacer, EGD/colonoscopy, bronchoscopies x2, bilateral inguinal hernia repairs, bilateral carpal tunnel releases. Past Anesthesia/Blood Transfusion Reactions: No Reported Reaction Date of Last Stent Placement:: 2010 Type of Cardiac Device: Permanent Pacemaker, AICD Device Placement Date:: 2008 Past Psychological History: No Psychological Hx Reported Smoking Status: Former smoker - Past Family History Father Family Medical History: No Reported History Additional Family Medical History / Comment(s): Father pt believes d/t his spouses passing. Mother Family Medical History: Myocardial Infarction (VT) Additional Family Medical History / Comment(s): Mother of a massive VT at the age of 53yrs. General Exam - General Exam Comments Initial Comments: Well-developed asthenic appearing male who is unresponsive on a ventilator oral ET tube is in place decompression catheter in place. Limitations: altered mental status, physical limitation General appearance: obtunded Head exam: Present: atraumatic, normocephalic, normal inspection Eye exam: Present: normal appearance, PERRL, EOMI. Absent: scleral icterus, conjunctival injection, periorbital swelling ENT exam: Present: other (Endotracheal tube in place) Neck exam: Present: normal inspection, full ROM, other (No stridor JVD or bruits) Respiratory exam: Present: other (Good aeration bilaterally on auscultation) Cardiovascular Exam: Present: regular rate, normal rhythm, normal heart sounds. Absent: systolic murmur, diastolic murmur, rubs, gallop, clicks GI/Abdominal exam: Present: soft, normal bowel sounds. Absent: distended, tenderness, guarding, rebound, rigid Rectal exam: Present: deferred Extremities exam: Present: normal inspection, full ROM, normal capillary refill. Absent: tenderness, pedal edema, joint swelling, calf tenderness Back exam: Present: normal inspection Neurological exam: Present: altered Psychiatric exam: Present: other (Unable to evaluate) Skin exam: Present: warm, dry, intact, normal color. Absent: rash Course Vital Signs 08/04/21 08/04/21 08/04/21 20:23 20:48 21:00 Temperature 97.6 F Pulse Rate 82 85 92 Respiratory 22 22 22 Rate Blood Pressure 91/60 66/48 88/61 O2 Sat by Pulse 100 92 L 92 L Oximetry 08/04/21 08/04/21 08/04/21 22:07 22:13 22:20 Temperature Pulse Rate 92 93 92 Respiratory 24 Rate Blood Pressure 81/60 O2 Sat by Pulse 89 L Oximetry - Reevaluation(s) Reevaluation #1: 08/04/21 22:34 I did review the materials presented from the sending facility. I did review the x-ray the before and after pleural decompression he did demonstrate evidence of a marked pneumothorax on the left. Reevaluation #2: 08/04/21 22:39 I did have several discussions with family members patient is a full code he has no current advanced directives. Medical Decision Making - Medical Decision Making I did discuss the findings with Dr. Michelle as well as Dr. Lundberg. Patient will be admitted to ICU. Blood transfusion is ordered no evidence of bleeding at this time. He original hemoglobin to [facility] was 7.7. The current numbers likely somewhat dilutional - Lab Data Result diagrams: 08/04/21 21:20 08/04/21 21:20 Lab Results 08/04/21 08/04/21 08/04/21 Range/Units 20:42 20:47 21:20 WBC 10.3 (3.8-10.6) k/uL RBC 2.29 L (4.30-5.90) m/uL Hgb 6.2 L* D (13.0-17.5) gm/dL Hct 19.9 L* (39.0-53.0) % MCV 86.7 (80.0-100.0) fL MCH 26.9 (25.0-35.0) pg MCHC 31.0 (31.0-37.0) g/dL RDW 17.9 H (11.5-15.5) % Plt Count 423 (150-450) k/uL MPV 7.2 Neutrophils % 90 % Lymphocytes % 5 % Monocytes % 3 % Eosinophils % 1 % Basophils % 0 % Neutrophils # 9.3 H (1.3-7.7) k/uL Lymphocytes # 0.5 L (1.0-4.8) k/uL Monocytes # 0.3 (0-1.0) k/uL Eosinophils # 0.1 (0-0.7) k/uL Basophils # 0.0 (0-0.2) k/uL Hypochromasia Marked Poikilocytosis Slight Anisocytosis Slight Sample Site R brachial ABG pH 7.45 (7.35-7.45) ABG pCO2 42 (35-45) mmHg ABG pO2 284 H (83-108) mmHg ABG HCO3 30 H (21-25) mmol/L ABG Total CO2 31 H (19-24) mmol/L ABG O2 Saturation 100.0 H (94-97) % ABG Base Excess 5.6 mmol/L Wilman Test Yes FiO2 100 % Sodium (137-145) mmol/L Potassium (3.5-5.1) mmol/L Chloride (98-107) mmol/L Carbon Dioxide (22-30) mmol/L Anion Gap mmol/L BUN (9-20) mg/dL Creatinine (0.66-1.25) mg/dL Est GFR (CKD-EPI)AfAm (>60 ml/min/1.73 sqM) Est GFR (CKD-EPI)NonAf (>60 ml/min/1.73 sqM) Glucose (74-99) mg/dL POC Glucose (mg/dL) 107 H (75-99) mg/dL POC Glu Panel Flow Machine Operator ID Radha Christianson Plasma Lactic Acid Yevgeniy (0.7-2.0) mmol/L Calcium (8.4-10.2) mg/dL Magnesium (1.6-2.3) mg/dL Total Bilirubin (0.2-1.3) mg/dL AST (17-59) U/L ALT (4-49) U/L Alkaline Phosphatase (38-126) U/L Creatine Kinase (55-170) U/L Troponin I (0.000-0.034) ng/mL Total Protein (6.3-8.2) g/dL Albumin (3.5-5.0) g/dL Urine Color Urine Appearance (Clear) Urine pH (5.0-8.0) Ur Specific Conley (1.001-1.035) Urine Protein (Negative) Urine Glucose (UA) (Negative) Urine Ketones (Negative) Urine Blood (Negative) Urine Nitrite (Negative) Urine Bilirubin (Negative) Urine Urobilinogen (<2.0) mg/dL Ur Leukocyte Esterase (Negative) Blood Type Blood Type Recheck Bld Type Recheck Status Antibody Screen Spec Expiration Date 08/04/21 08/04/21 08/04/21 Range/Units 21:20 21:20 21:20 WBC (3.8-10.6) k/uL RBC (4.30-5.90) m/uL Hgb (13.0-17.5) gm/dL Hct (39.0-53.0) % MCV (80.0-100.0) fL MCH (25.0-35.0) pg MCHC (31.0-37.0) g/dL RDW (11.5-15.5) % Plt Count (150-450) k/uL MPV Neutrophils % % Lymphocytes % % Monocytes % % Eosinophils % % Basophils % % Neutrophils # (1.3-7.7) k/uL Lymphocytes # (1.0-4.8) k/uL Monocytes # (0-1.0) k/uL Eosinophils # (0-0.7) k/uL Basophils # (0-0.2) k/uL Hypochromasia Poikilocytosis Anisocytosis Sample Site ABG pH (7.35-7.45) ABG pCO2 (35-45) mmHg ABG pO2 (83-108) mmHg ABG HCO3 (21-25) mmol/L ABG Total CO2 (19-24) mmol/L ABG O2 Saturation (94-97) % ABG Base Excess mmol/L Wilman Test FiO2 % Sodium 134 L (137-145) mmol/L Potassium 3.1 L (3.5-5.1) mmol/L Chloride 104 (98-107) mmol/L Carbon Dioxide 26 (22-30) mmol/L Anion Gap 4 mmol/L BUN 12 (9-20) mg/dL Creatinine 0.63 L (0.66-1.25) mg/dL Est GFR (CKD-EPI)AfAm >90 (>60 ml/min/1.73 sqM) Est GFR (CKD-EPI)NonAf >90 (>60 ml/min/1.73 sqM) Glucose 97 (74-99) mg/dL POC Glucose (mg/dL) (75-99) mg/dL POC Glu Panel Flow Machine Operator ID Plasma Lactic Acid Yevgeniy 1.1 (0.7-2.0) mmol/L Calcium 6.5 L (8.4-10.2) mg/dL Magnesium 1.5 L (1.6-2.3) mg/dL Total Bilirubin 0.6 (0.2-1.3) mg/dL AST 42 (17-59) U/L ALT 33 (4-49) U/L Alkaline Phosphatase 168 H (38-126) U/L Creatine Kinase 30 L (55-170) U/L Troponin I (0.000-0.034) ng/mL Total Protein 5.0 L (6.3-8.2) g/dL Albumin 2.2 L (3.5-5.0) g/dL Urine Color Light Yellow Urine Appearance Clear (Clear) Urine pH 7.0 (5.0-8.0) Ur Specific Conley 1.005 (1.001-1.035) Urine Protein Negative (Negative) Urine Glucose (UA) Negative (Negative) Urine Ketones Negative (Negative) Urine Blood Negative (Negative) Urine Nitrite Negative (Negative) Urine Bilirubin Negative (Negative) Urine Urobilinogen <2.0 (<2.0) mg/dL Ur Leukocyte Esterase Negative (Negative) Blood Type Blood Type Recheck Bld Type Recheck Status Antibody Screen Spec Expiration Date 08/04/21 08/04/21 Range/Units 21:20 21:20 WBC (3.8-10.6) k/uL RBC (4.30-5.90) m/uL Hgb (13.0-17.5) gm/dL Hct (39.0-53.0) % MCV (80.0-100.0) fL MCH (25.0-35.0) pg MCHC (31.0-37.0) g/dL RDW (11.5-15.5) % Plt Count (150-450) k/uL MPV Neutrophils % % Lymphocytes % % Monocytes % % Eosinophils % % Basophils % % Neutrophils # (1.3-7.7) k/uL Lymphocytes # (1.0-4.8) k/uL Monocytes # (0-1.0) k/uL Eosinophils # (0-0.7) k/uL Basophils # (0-0.2) k/uL Hypochromasia Poikilocytosis Anisocytosis Sample Site ABG pH (7.35-7.45) ABG pCO2 (35-45) mmHg ABG pO2 (83-108) mmHg ABG HCO3 (21-25) mmol/L ABG Total CO2 (19-24) mmol/L ABG O2 Saturation (94-97) % ABG Base Excess mmol/L Wilamn Test FiO2 % Sodium (137-145) mmol/L Potassium (3.5-5.1) mmol/L Chloride (98-107) mmol/L Carbon Dioxide (22-30) mmol/L Anion Gap mmol/L BUN (9-20) mg/dL Creatinine (0.66-1.25) mg/dL Est GFR (CKD-EPI)AfAm (>60 ml/min/1.73 sqM) Est GFR (CKD-EPI)NonAf (>60 ml/min/1.73 sqM) Glucose (74-99) mg/dL POC Glucose (mg/dL) (75-99) mg/dL POC Glu Panel Flow Machine Operator ID Plasma Lactic Acid Yevgeniy (0.7-2.0) mmol/L Calcium (8.4-10.2) mg/dL Magnesium (1.6-2.3) mg/dL Total Bilirubin (0.2-1.3) mg/dL AST (17-59) U/L ALT (4-49) U/L Alkaline Phosphatase (38-126) U/L Creatine Kinase (55-170) U/L Troponin I 0.576 H* (0.000-0.034) ng/mL Total Protein (6.3-8.2) g/dL Albumin (3.5-5.0) g/dL Urine Color Urine Appearance (Clear) Urine pH (5.0-8.0) Ur Specific Conley (1.001-1.035) Urine Protein (Negative) Urine Glucose (UA) (Negative) Urine Ketones (Negative) Urine Blood (Negative) Urine Nitrite (Negative) Urine Bilirubin (Negative) Urine Urobilinogen (<2.0) mg/dL Ur Leukocyte Esterase (Negative) Blood Type A Positive Blood Type Recheck A Pos Bld Type Recheck Status No Antibody Screen NEGATIVE Spec Expiration Date 08/07/20212319 - EKG Data -: EKG Interpreted by Vt EKG shows normal: sinus rhythm EKG Comments: Sinus rhythm of 78. Interval 120 QRS duration 110 QT/QTC 398/431 low-voltage evidence of anteroseptal changes undetermined age - Radiology Data Radiology results: report reviewed (Imaging reviewed evidence of a residual 5- 10% pneumothorax on the left. Other infiltrates remained consistent with previous x-rays.), image reviewed Critical Care Time Critical Care Time: Yes Total Critical Care Time: 45 Critical Care Time: Critical care time includes initial presentation with history physical labs x- rays Disposition Clinical Impression: Acute respiratory failure, Pneumothorax on left, Non-STEMI (non-ST elevated myocardial infarction), Hypomagnesemia, Hypokalemia, Hypotensive episode, COPD (chronic obstructive pulmonary disease) Disposition: ADMITTED IP TO THIS HOSP Condition: Critical Referrals: Celso Garcia MD [Primary Care Provider] - 1-2 days Decision Date: 08/04/21 Decision Time: 21:45
[2021-08-04] MEDS ORDERED: NALOXONE 0.4 MG/ML 1 ML VIAL IV PRN (22:42)
--- NOTE | 2021-08-04 22:49 | ED ---
Medical Decision Making - Lab Data Result diagrams: 08/04/21 21:20 08/04/21 21:20 Lab Results 08/04/21 08/04/21 08/04/21 Range/Units 20:42 20:47 21:20 WBC 10.3 (3.8-10.6) k/uL RBC 2.29 L (4.30-5.90) m/uL Hgb 6.2 L* D (13.0-17.5) gm/dL Hct 19.9 L* (39.0-53.0) % MCV 86.7 (80.0-100.0) fL MCH 26.9 (25.0-35.0) pg MCHC 31.0 (31.0-37.0) g/dL RDW 17.9 H (11.5-15.5) % Plt Count 423 (150-450) k/uL MPV 7.2 Neutrophils % 90 % Lymphocytes % 5 % Monocytes % 3 % Eosinophils % 1 % Basophils % 0 % Neutrophils # 9.3 H (1.3-7.7) k/uL Lymphocytes # 0.5 L (1.0-4.8) k/uL Monocytes # 0.3 (0-1.0) k/uL Eosinophils # 0.1 (0-0.7) k/uL Basophils # 0.0 (0-0.2) k/uL Hypochromasia Marked Poikilocytosis Slight Anisocytosis Slight Sample Site R brachial ABG pH 7.45 (7.35-7.45) ABG pCO2 42 (35-45) mmHg ABG pO2 284 H (83-108) mmHg ABG HCO3 30 H (21-25) mmol/L ABG Total CO2 31 H (19-24) mmol/L ABG O2 Saturation 100.0 H (94-97) % ABG Base Excess 5.6 mmol/L Wilman Test Yes FiO2 100 % Sodium (137-145) mmol/L Potassium (3.5-5.1) mmol/L Chloride (98-107) mmol/L Carbon Dioxide (22-30) mmol/L Anion Gap mmol/L BUN (9-20) mg/dL Creatinine (0.66-1.25) mg/dL Est GFR (CKD-EPI)AfAm (>60 ml/min/1.73 sqM) Est GFR (CKD-EPI)NonAf (>60 ml/min/1.73 sqM) Glucose (74-99) mg/dL POC Glucose (mg/dL) 107 H (75-99) mg/dL POC Glu Jewel Grinder ID Radha Christianson Plasma Lactic Acid Yevgeniy (0.7-2.0) mmol/L Calcium (8.4-10.2) mg/dL Magnesium (1.6-2.3) mg/dL Total Bilirubin (0.2-1.3) mg/dL AST (17-59) U/L ALT (4-49) U/L Alkaline Phosphatase (38-126) U/L Creatine Kinase (55-170) U/L Troponin I (0.000-0.034) ng/mL Total Protein (6.3-8.2) g/dL Albumin (3.5-5.0) g/dL Urine Color Urine Appearance (Clear) Urine pH (5.0-8.0) Ur Specific [place] (1.001-1.035) Urine Protein (Negative) Urine Glucose (UA) (Negative) Urine Ketones (Negative) Urine Blood (Negative) Urine Nitrite (Negative) Urine Bilirubin (Negative) Urine Urobilinogen (<2.0) mg/dL Ur Leukocyte Esterase (Negative) Blood Type Blood Type Recheck Bld Type Recheck Status Antibody Screen Crossmatch Spec Expiration Date 08/04/21 08/04/21 08/04/21 Range/Units 21:20 21:20 21:20 WBC (3.8-10.6) k/uL RBC (4.30-5.90) m/uL Hgb (13.0-17.5) gm/dL Hct (39.0-53.0) % MCV (80.0-100.0) fL MCH (25.0-35.0) pg MCHC (31.0-37.0) g/dL RDW (11.5-15.5) % Plt Count (150-450) k/uL MPV Neutrophils % % Lymphocytes % % Monocytes % % Eosinophils % % Basophils % % Neutrophils # (1.3-7.7) k/uL Lymphocytes # (1.0-4.8) k/uL Monocytes # (0-1.0) k/uL Eosinophils # (0-0.7) k/uL Basophils # (0-0.2) k/uL Hypochromasia Poikilocytosis Anisocytosis Sample Site ABG pH (7.35-7.45) ABG pCO2 (35-45) mmHg ABG pO2 (83-108) mmHg ABG HCO3 (21-25) mmol/L ABG Total CO2 (19-24) mmol/L ABG O2 Saturation (94-97) % ABG Base Excess mmol/L Wilman Test FiO2 % Sodium 134 L (137-145) mmol/L Potassium 3.1 L (3.5-5.1) mmol/L Chloride 104 (98-107) mmol/L Carbon Dioxide 26 (22-30) mmol/L Anion Gap 4 mmol/L BUN 12 (9-20) mg/dL Creatinine 0.63 L (0.66-1.25) mg/dL Est GFR (CKD-EPI)AfAm >90 (>60 ml/min/1.73 sqM) Est GFR (CKD-EPI)NonAf >90 (>60 ml/min/1.73 sqM) Glucose 97 (74-99) mg/dL POC Glucose (mg/dL) (75-99) mg/dL POC Glu Jewel Grinder ID Plasma Lactic Acid Yevgeniy 1.1 (0.7-2.0) mmol/L Calcium 6.5 L (8.4-10.2) mg/dL Magnesium 1.5 L (1.6-2.3) mg/dL Total Bilirubin 0.6 (0.2-1.3) mg/dL AST 42 (17-59) U/L ALT 33 (4-49) U/L Alkaline Phosphatase 168 H (38-126) U/L Creatine Kinase 30 L (55-170) U/L Troponin I (0.000-0.034) ng/mL Total Protein 5.0 L (6.3-8.2) g/dL Albumin 2.2 L (3.5-5.0) g/dL Urine Color Light Yellow Urine Appearance Clear (Clear) Urine pH 7.0 (5.0-8.0) Ur Specific [place] 1.005 (1.001-1.035) Urine Protein Negative (Negative) Urine Glucose (UA) Negative (Negative) Urine Ketones Negative (Negative) Urine Blood Negative (Negative) Urine Nitrite Negative (Negative) Urine Bilirubin Negative (Negative) Urine Urobilinogen <2.0 (<2.0) mg/dL Ur Leukocyte Esterase Negative (Negative) Blood Type Blood Type Recheck Bld Type Recheck Status Antibody Screen Crossmatch Spec Expiration Date 08/04/21 08/04/21 Range/Units 21:20 21:20 WBC (3.8-10.6) k/uL RBC (4.30-5.90) m/uL Hgb (13.0-17.5) gm/dL Hct (39.0-53.0) % MCV (80.0-100.0) fL MCH (25.0-35.0) pg MCHC (31.0-37.0) g/dL RDW (11.5-15.5) % Plt Count (150-450) k/uL MPV Neutrophils % % Lymphocytes % % Monocytes % % Eosinophils % % Basophils % % Neutrophils # (1.3-7.7) k/uL Lymphocytes # (1.0-4.8) k/uL Monocytes # (0-1.0) k/uL Eosinophils # (0-0.7) k/uL Basophils # (0-0.2) k/uL Hypochromasia Poikilocytosis Anisocytosis Sample Site ABG pH (7.35-7.45) ABG pCO2 (35-45) mmHg ABG pO2 (83-108) mmHg ABG HCO3 (21-25) mmol/L ABG Total CO2 (19-24) mmol/L ABG O2 Saturation (94-97) % ABG Base Excess mmol/L Wilman Test FiO2 % Sodium (137-145) mmol/L Potassium (3.5-5.1) mmol/L Chloride (98-107) mmol/L Carbon Dioxide (22-30) mmol/L Anion Gap mmol/L BUN (9-20) mg/dL Creatinine (0.66-1.25) mg/dL Est GFR (CKD-EPI)AfAm (>60 ml/min/1.73 sqM) Est GFR (CKD-EPI)NonAf (>60 ml/min/1.73 sqM) Glucose (74-99) mg/dL POC Glucose (mg/dL) (75-99) mg/dL POC Glu Jewel Grinder ID Plasma Lactic Acid Yevgeniy (0.7-2.0) mmol/L Calcium (8.4-10.2) mg/dL Magnesium (1.6-2.3) mg/dL Total Bilirubin (0.2-1.3) mg/dL AST (17-59) U/L ALT (4-49) U/L Alkaline Phosphatase (38-126) U/L Creatine Kinase (55-170) U/L Troponin I 0.576 H* (0.000-0.034) ng/mL Total Protein (6.3-8.2) g/dL Albumin (3.5-5.0) g/dL Urine Color Urine Appearance (Clear) Urine pH (5.0-8.0) Ur Specific [place] (1.001-1.035) Urine Protein (Negative) Urine Glucose (UA) (Negative) Urine Ketones (Negative) Urine Blood (Negative) Urine Nitrite (Negative) Urine Bilirubin (Negative) Urine Urobilinogen (<2.0) mg/dL Ur Leukocyte Esterase (Negative) Blood Type A Positive Blood Type Recheck A Pos Bld Type Recheck Status No Antibody Screen NEGATIVE Crossmatch See Detail Spec Expiration Date 08/07/20212319 Disposition Clinical Impression: Acute respiratory failure, Pneumothorax on left, Non-STEMI (non-ST elevated myocardial infarction), Hypomagnesemia, Hypokalemia, Hypotensive episode, COPD (chronic obstructive pulmonary disease), Anemia Disposition: ADMITTED IP TO THIS HOSP Condition: Critical Referrals: Celso Garcia MD [Primary Care Provider] - 1-2 days
[2021-08-04] MEDS ORDERED: propofoL 100 ML IV ONE (23:29)
--- NOTE | 2021-08-05 00:11 | XR ---
EXAMINATION TYPE: XR chest 1V DATE OF EXAM: 08/05/2021 COMPARISON: Today HISTORY: Follow-up pneumothorax TECHNIQUE: Single view FINDINGS: There is a large left-sided pneumothorax. This is more than 80%. Heart is shifted to the ri ght side. Heart size is normal. There is endotracheal tube 4.5 cm from the jennifer. There is a left-si ded chest tube. There are soft tissue air on the left lateral chest wall. There is left axillary pace maker noted. There are chest leads. There is some airspace consolidation in the right upper lobe. IMPRESSION: Large left-sided pneumothorax significantly increased compared to exam 3 hours ago with evidence of t ension. There is left-sided chest tube and probably chest tube malfunction. Heart is shifted to the r ight side. IMPRESSION:
[2021-08-05 01:57] LABS: Glucose,Whole Blood 167 mg/dL (75-99)
--- NOTE | 2021-08-05 02:08 | P.HPIM ---
History of Present Illness H&P Date: 08/04/21 Chief Complaint: shortness o breath 56-year-old male with recent hospitalization diagnosed with histoplasmosis Patient unable to provide any meaningful history currently intubated and sedated Per reports patient had sudden onset shortness of breath , he was complaining of chest pain for several days with sudden worsening today, for which she was taken to the [facility] he was diagnosed with pneumothorax left pigtail drain was inserted patient was intubated to hypoxic respiratory failure was sent to our facility for further treatment Upon evaluating the patient he was noticed to have new onset subcutaneous emphysema repeat x-ray showed worsening left sided pneumothorax with tension affect resulting in deviation of the trachea and shifting of the heart apparently the chest to valve was off was switched to the open position patient oxygenation started improving we'll repeat chest x-ray at the later time to confirm improvement in left-sided pneumothorax No other history available at this time Review of Systems ROS unobtainable: due to endotracheal tube Past Medical History Past Medical History: Atrial Fibrillation, Coronary Artery Disease (CAD), Chest Pain / Angina, Heart Failure, COPD, Myocardial Infarction (NH) Additional Past Medical History / Comment(s): Pt recently sent from [facility] ER to [facility] for lower GI bleed/he states he had endoscopies and was told he had an ulcer/polyps and hemorrhoids, pt also recently admitted to [facility] and treated for double pneumonia/sepsis/histoplasmosis infection and was sent home with home oxygen. Other hx: Severe COPD, past norco addiction and is on suboxone past 4 year and it is being weaned down, MIs x3. Last Myocardial Infarction Date:: 2008 History of Any Multi-Drug Resistant Organisms: None Reported Past Surgical History: AICD, Heart Catheterization, Heart Catheterization With Stent, Hernia Repair, Orthopedic Surgery, Pacemaker Additional Past Surgical History / Comment(s): PCI with stents, AICD/pacer, EGD/colonoscopy, bronchoscopies x2, bilateral inguinal hernia repairs, bilateral carpal tunnel releases. Past Anesthesia/Blood Transfusion Reactions: No Reported Reaction Date of Last Stent Placement:: 2010 Type of Cardiac Device: Permanent Pacemaker, AICD Device Placement Date:: 2008 Past Psychological History: No Psychological Hx Reported Additional Psychological History / Comment(s): Pt resides with his spouse. He has home oxygen. Smoking Status: Former smoker Past Alcohol Use History: None Reported Additional Past Alcohol Use History / Comment(s): Pt started smoking in 1978 and had been cutting back then quit end of June 2021 Past Drug Use History: None Reported Additional Drug Use History / Comment(s): Marijuana at night 6 nights a week to sleep - Past Family History Father Family Medical History: No Reported History Additional Family Medical History / Comment(s): Father pt believes d/t his spouses passing. Mother Family Medical History: Myocardial Infarction (NH) Additional Family Medical History / Comment(s): Mother of a massive NH at the age of 53yrs. Medications and Allergies Home Medications Medication Instructions Recorded Confirmed Type Buprenorphine HCl/Naloxone HCl 0.5 film SL TID PRN 03/13/15 08/04/21 History [Suboxone 8 mg-2 mg Sl Film] Aspirin [Adult Low Dose Aspirin EC] 81 tab PO DAILY 03/28/17 08/04/21 History Albuterol Inhaler [Ventolin Hfa 2 puff INHALATION RT-QID PRN 06/19/21 08/04/21 History Inhaler] Atorvastatin [Lipitor] 40 mg PO HS 06/19/21 08/04/21 History Fluticasone/Umeclidin/Vilanter 1 puff INHALATION RT-DAILY 06/19/21 08/04/21 History [Trelegy Ellipta 200-62.5-25] Nicotine 21Mg/24Hr Patch [Habitrol] 1 patch TRANSDERM DAILY 06/19/21 08/04/21 History carvediloL [Coreg] 3.125 mg PO HS 06/29/21 08/04/21 History Acetaminophen Tab [Tylenol] 650 mg PO Q6HR PRN tab 07/03/21 08/04/21 Rx Furosemide [Lasix] 60 mg PO DAILY #45 tab 07/31/21 08/04/21 Rx Itraconazole [Sporanox] 200 mg PO TID 30 Days #120 capsule 07/31/21 08/04/21 Rx Pantoprazole [Protonix] 40 mg PO DAILY@1200 08/04/21 08/04/21 History Sodium Chloride 0.65% Nasal [Deep 1 spray EA NOSTRIL Q4HR PRN 08/04/21 08/04/21 History Sea (Saline)] Allergies Allergy/AdvReac Type Severity Reaction Status Date / Time clopidogrel bisulfate Allergy Anaphylaxis Verified 08/04/21 21:41 [From Plavix] Physical Exam Vitals: Vital Signs Temp Pulse Resp BP Pulse Ox 08/05/21 01:50 97.9 F 65 22 108/83 100 08/05/21 01:20 97.9 F 67 22 106/82 100 08/05/21 01:10 98.1 F 67 22 106/81 100 08/04/21 23:20 91 22 91/64 97 08/04/21 22:20 92 08/04/21 22:13 93 08/04/21 22:07 92 24 81/60 89 L 08/04/21 21:00 92 22 88/61 92 L 08/04/21 20:48 85 22 66/48 92 L 08/04/21 20:23 97.6 F 82 22 91/60 100 Intake and Output 08/04/21 08/04/21 08/05/21 14:59 22:59 06:59 Intake Total 0 Output Total 300 Balance -300 0 Intake: Blood Product 0 Rc As-1 Unit 0 [id number] Output: Urine 300 Uretheral (Bolaños) 300 Other: Weight 57.425 kg Constitutional: Intubated and sedated Neck: Supple, no masses, or JVD, significant subcutaneous emphysema No carotid bruits No thyromegaly Lungs: Severely diminished breath sounds over the left side Increased no to percussion over the left side, significant subcutaneous emphysema throughout the chest Normal respiratory effort, no accessory muscle use Cardiovascular: Heart regular in rate and rhythm, No murmurs, gallops, or rubs No peripheral edema Abdominal: Soft Nontender, no guarding, rebound or rigidity Abdomen moving with respiration Normoactive bowel sounds No hepatomegaly, No splenomegaly No palpable mass No abdominal wall hernia noted Skin: Significant subcutaneous emphysema and crepitation over the anterior chest, left-sided pigtail type of chest tube inserted in place Extremities: No digital cyanosis Clubbing toes Pedal pulses intact and symmetrical Radial pulses intact and symmetrical Psychiatric: Patient intubated sedated Neuro unable to perform patient intubated sedated Lymphatics: no palpable cervical or supraclavicular , or inguinal lymph nodes Results CBC & Chem 7: 08/04/21 21:20 08/04/21 21:20 Labs: Abnormal Lab Results - Last 24 Hours (Table) 08/04/21 08/04/21 08/04/21 Range/Units 20:42 20:47 21:20 RBC 2.29 L (4.30-5.90) m/uL Hgb 6.2 L* D (13.0-17.5) gm/dL Hct 19.9 L* (39.0-53.0) % RDW 17.9 H (11.5-15.5) % Neutrophils # 9.3 H (1.3-7.7) k/uL Lymphocytes # 0.5 L (1.0-4.8) k/uL ABG pO2 284 H (83-108) mmHg ABG HCO3 30 H (21-25) mmol/L ABG Total CO2 31 H (19-24) mmol/L ABG O2 Saturation 100.0 H (94-97) % Sodium (137-145) mmol/L Potassium (3.5-5.1) mmol/L Creatinine (0.66-1.25) mg/dL POC Glucose (mg/dL) 107 H (75-99) mg/dL Calcium (8.4-10.2) mg/dL Magnesium (1.6-2.3) mg/dL Alkaline Phosphatase (38-126) U/L Creatine Kinase (55-170) U/L Troponin I (0.000-0.034) ng/mL Total Protein (6.3-8.2) g/dL Albumin (3.5-5.0) g/dL Crossmatch 08/04/21 08/04/21 08/04/21 Range/Units 21:20 21:20 21:20 RBC (4.30-5.90) m/uL Hgb (13.0-17.5) gm/dL Hct (39.0-53.0) % RDW (11.5-15.5) % Neutrophils # (1.3-7.7) k/uL Lymphocytes # (1.0-4.8) k/uL ABG pO2 (83-108) mmHg ABG HCO3 (21-25) mmol/L ABG Total CO2 (19-24) mmol/L ABG O2 Saturation (94-97) % Sodium 134 L (137-145) mmol/L Potassium 3.1 L (3.5-5.1) mmol/L Creatinine 0.63 L (0.66-1.25) mg/dL POC Glucose (mg/dL) (75-99) mg/dL Calcium 6.5 L (8.4-10.2) mg/dL Magnesium 1.5 L (1.6-2.3) mg/dL Alkaline Phosphatase 168 H (38-126) U/L Creatine Kinase 30 L (55-170) U/L Troponin I 0.576 H* (0.000-0.034) ng/mL Total Protein 5.0 L (6.3-8.2) g/dL Albumin 2.2 L (3.5-5.0) g/dL Crossmatch See Detail 08/05/21 Range/Units 01:56 RBC (4.30-5.90) m/uL Hgb (13.0-17.5) gm/dL Hct (39.0-53.0) % RDW (11.5-15.5) % Neutrophils # (1.3-7.7) k/uL Lymphocytes # (1.0-4.8) k/uL ABG pO2 (83-108) mmHg ABG HCO3 (21-25) mmol/L ABG Total CO2 (19-24) mmol/L ABG O2 Saturation (94-97) % Sodium (137-145) mmol/L Potassium (3.5-5.1) mmol/L Creatinine (0.66-1.25) mg/dL POC Glucose (mg/dL) 167 H (75-99) mg/dL Calcium (8.4-10.2) mg/dL Magnesium (1.6-2.3) mg/dL Alkaline Phosphatase (38-126) U/L Creatine Kinase (55-170) U/L Troponin I (0.000-0.034) ng/mL Total Protein (6.3-8.2) g/dL Albumin (3.5-5.0) g/dL Crossmatch Assessment and Plan Assessment: Acute hypoxic respiratory failure status post intubation and mechanical ventilation Sudden onset spontaneous tension pneumothorax left-sided status post pleural decompression catheter insertion Worsening of tension pneumothorax improved after adjusting valve position of the catheter tube which was accidentally placed on off position for unknown duration Repeat chest x-ray confirmed worsening left-sided pneumothorax with tension affect shifting of the heart and the trachea to the right Admit to ICU ICU consult Vent care Sedation with propofol and because Lyme Cardiovascular support with IV pressors Status post Bolaños catheter insertion for strict I's and O's ID consultation for antifungal treatment for recent histoplasmosis infection Chronic conditions Recent GI bleeding worsening of hemoglobin compared to most recent trend. No reported GI bleeding patient will be given 1 unit blood transfusion monitor for GI bleeding PPI Elevated troponin, continue to trend, cardiology consult Resume cardiac meds History of congestive heart failure, status post ICD Electrolyte imbalance replace potassium and magnesium follow-up levels Full code Anticipated length of stay more than 2 midnights DVT prophylaxis mechanical due to recent GI bleeding and downtrending of hemoglobin
[2021-08-05] MEDS: MAGNESIUM SULFATE-D5W PMX 1 GM in DEXTROSE/WATER 1 100ML.BAG IVPB SCH (02:55)
[2021-08-05 05:57] LABS: ABG HCO3 28 mmol/L (21-25); ABG Oxygen Saturation 97.9 % (94-97); ABG PCO2 39 mmHg (35-45); ABG PH 7.46 (7.35-7.45); ABG PO2 95 mmHg (83-108); ABG TCO2 29 mmol/L (19-24); Allen Test Performed? Yes
[2021-08-05 08:06] LABS: ALT 35 U/L (4-49); AST 38 U/L (17-59); African American GFR (CKD) >90 (>60 ml/min/1.73 sqM); Albumin 2.6 g/dL (3.5-5.0); Alkaline Phosphatase 188 U/L (38-126); Anion Gap 9 mmol/L; Blood Urea Nitrogen 13 mg/dL (9-20); Calcium 7.6 mg/dL (8.4-10.2); Carbon Dioxide 26 mmol/L (22-30); Chloride 105 mmol/L (98-107); Glucose 147 mg/dL (74-99); Non-African American GFR(CKD) >90 (>60 ml/min/1.73 sqM); Potassium 3.6 mmol/L (3.5-5.1); Sodium 140 mmol/L (137-145); Total Bilirubin 0.7 mg/dL (0.2-1.3); Total Protein 5.8 g/dL (6.3-8.2)
[2021-08-05] MEDS ORDERED: CISATRACURIUM 2 MG/ML 5 ML VIAL IV ONE (08:11)
[2021-08-05 08:13] LABS: Anisocytosis Slight; Basophils % (A) 0 %; Eosinophils % (A) 0 %; HCT 28.4 % (39.0-53.0); Hypochromasia Moderate; Lymphocytes # (A) 1.2 k/uL (1.0-4.8); Lymphocytes % (A) 15 %; MCH 27.4 pg (25.0-35.0); MCHC 31.2 g/dL (31.0-37.0); MCV 87.8 fL (80.0-100.0); Mean Platelet Volume 7.7; Monocytes # (A) 0.2 k/uL (0-1.0); Monocytes % (A) 3 %; Neutrophils # (A) 6.4 k/uL (1.3-7.7); Neutrophils % (A) 81 %; Platelet Count 465 k/uL (150-450); Poikilocytosis Slight; RBC 3.23 m/uL (4.30-5.90); RDW 17.2 % (11.5-15.5); WBC 7.9 k/uL (3.8-10.6)
[2021-08-05 08:16] LABS: HGB 8.8 gm/dL (13.0-17.5)
--- NOTE | 2021-08-05 08:38 | XR ---
EXAMINATION TYPE: XR chest 1V portable DATE OF EXAM: 08/05/2021 CLINICAL HISTORY: Left-sided pneumothorax. TECHNIQUE: Single AP portable upright view of the chest is obtained. COMPARISON: Chest x-ray from earlier today and older studies FINDINGS: Stable Endotracheal tube and orogastric tubes. Stable left-sided pleural pigtail drainage catheter. Improved upper lateral pneumothorax on current study now not clearly seen. Overlying subcut aneous emphysema redemonstrated. Heart size remains within normal limits with single lead pacemaker/defibrillator. Upper lung parenchy mal scarring with hilar retraction redemonstrated. Increasing left upper lung opacity favors atelecta sis and/or infiltrate. Osseous structures are intact. IMPRESSION: Resolved small left-sided pneumothorax with pleural drainage catheter in place. Persisten t bilateral chronic upper lung scarring and volume loss. Areas of acute infiltrate and/or atelectasis difficult to exclude on background fibrosis.
--- NOTE | 2021-08-05 08:42 | XR ---
EXAMINATION TYPE: XR chest 1V DATE OF EXAM: 08/05/2021 COMPARISON: 08/04/2021 HISTORY: Postop TECHNIQUE: Single frontal view of the chest is obtained. FINDINGS: There is improvement in appearance of the pneumothorax now approximately 30% relative to t he prior exam. Could not exclude slight mediastinal deviation. Bilateral areas of consolidation or ma ss are stable and there is severe subcutaneous and cardiac device, ET and NG tube stable. Tiny right pleural effusion suspected. IMPRESSION: 1. Interval reduction in size of a large left pneumothorax now measuring approximately 30% cannot exc lude a small tension component although there does appear to be a chest tube in position correlate cl inically. 2. Bilateral areas of upper lobe consolidation or mass stable 3. Severe subcutaneous emphysema
[2021-08-05] MEDS: ENOXAPARIN 40 MG/0.4 ML SYRINGE SQ SCH (08:53)
[2021-08-05] MEDS: ASPIRIN 81 MG PO SCH (08:53)
[2021-08-05] MEDS: ITRACONAZOLE 100 MG CAP PO SCH ×3 (08:53→21:20)
[2021-08-05] MEDS: PANTOPRAZOLE 40 MG/10 ML VIAL IV SCH ×2 (08:53→21:20)
[2021-08-05] MEDS: SODIUM CHLORIDE 0.9% 1,000 ML IV SCH (08:54)
[2021-08-05 09:01] LABS: Partial Thromboplastin Time 23.6 sec (22.0-30.0); Prothrombin Time 10.6 sec (9.0-12.0)
[2021-08-05] MEDS: NON FORMULARY DRUG (Buprenorphine Hcl/Naloxone Hcl [Suboxone 8 Mg-2 Mg Sl Film] 1 EACH Fil SUBLINGUAL PRN ×2 (10:06→16:44)
[2021-08-05] MEDS ORDERED: LIDOCAINE 1% INJ 10MG/ML (20 ML MDV) ONE (10:26)
[2021-08-05] MEDS ORDERED: LIDOCAINE 1% INJ 10MG/ML (20 ML MDV) SQ ONE (10:49)
--- NOTE | 2021-08-05 11:18 | XR ---
EXAMINATION TYPE: XR chest 1V confirm line [facility] DATE OF EXAM: 08/05/2021 CLINICAL HISTORY: Right-sided PICC line. TECHNIQUE: Single AP portable semiupright view of the chest is obtained. COMPARISON: Chest x-ray from earlier today and older studies FINDINGS: Stable Endotracheal tube and orogastric tubes. Interval removal of left-sided pleural pigt ail drainage catheter. Stable left apical chest tube. New right-sided PICC line terminates at the cav al atrial junction. Extensive Overlying subcutaneous emphysema redemonstrated. No visualized pneumoth orax currently. Heart size remains within normal limits with single lead pacemaker/defibrillator. Suspect coronary st ent in the left circumflex distribution superiorly. Upper lung parenchymal scarring and opacity with hilar retraction redemonstrated. Osseous structures are intact. IMPRESSION: As above.
--- NOTE | 2021-08-05 12:04 | P.CNPUL ---
History of Present Illness Consult date: 08/05/21 Reason for consult: dyspnea, hypoxemia, pneumonia, pneumothorax History of present illness: 56-year-old male patient was brought in from an outside hospital because of an acute respiratory failure which occurred due to a large left-sided pneumothorax. The patient had a small bore chest tube inserted into the left lung and sized to a Heimlich valve. The patient was also intubated and placed on a mechanical ventilator and following that he was transferred to our hospital for further care. The patient was subsequently admitted to the intensive care unit. Serial chest x-ray was done since his admission and the patient continues to have a persistent pneumothorax on the left, subcutaneous emphysema bilaterally. Patient is currently intensive care unit. Pulmonary consultation was requested The patient is known to me. The patient is known to have COPD with extensive emphysematous changes bilaterally mainly involving the upper lobes and getting the most recent admissions, the patient has extensive pneumonia, bronchoscopy 2 without any microbial positive cultures and furthermore the patient had a positive histoplasma serum antigen and for that reason the patient was started initially on amphotericin B and subsequently the patient was switched to itraconazole orally and the patient was discharged home on 3 L about 2 by nasal cannula according to the family the patient was doing well. Yesterday, he was doing well and ambulating and acutely became short of breath and he went to the emergency department Hospital where he was found to have a large left-sided pneumothorax. His other comorbid conditions include coronary artery disease, paroxysmal atrial fibrillation, history of pacemaker/AICD placement for chronic ischemic cardiomyopathy with ejection fraction of 30-35%, chronic anxiety. The patient has a previous myocardial infarction. He has also previous history of prescription narcotic abuse and the patient is demented on Suboxone. Note that his interim history is also positive for a lower GI bleed for which she was hospitalized at [facility] following his admission to our hospital. The patient had an EGD that was negative and the colonoscopy showed hemorrhoids and a nonbleeding ulcer. At this point in time, the patient is on propofol running at 45 mcg/kg per minute. The patient is on a mechanical ventilator. The patient is on a volume cycled assist-control mode at the rate of 22 with a tidal volume of 450 and a PEEP of 5 with an FiO2 of 60%. He is at 7.46 with a pCO2 of 39 and pO2 of 95. The troponin was 0.576, there is white cell count is at 10.3 with a hemoglobin 10.2 and the patient's sodium level is at 131 with a potassium level of 3.1 and a BUN of 12 and a creatinine of 0.6. Normal coagulation profile. UA was negative. In the ICU, immediately inserted a second chest tube on the left and this was a 32-Togolese chest tube directed apex with further evaluation of the left-sided pneumothorax and subsequent chest x-ray shows reexpansion of the left lung and the patient continues to have airspace disease bilaterally in the upper lobes and a pacemaker/defibrillator over the left anterior chest area. The patient also required some pressors overnight and the patient was on low-dose norepinephrine infusion this morning. This was gradually weaned off and discontinued. A PICC line will be inserted. An arterial line with her also inserted Review of Systems ROS unobtainable: due to endotracheal tube Past Medical History Past Medical History: Atrial Fibrillation, Coronary Artery Disease (CAD), Chest Pain / Angina, Heart Failure, COPD, Myocardial Infarction ([place]) Additional Past Medical History / Comment(s): Pt recently sent from [facility] ER to [facility] for lower GI bleed/he states he had endoscopies and was told he had an ulcer/polyps and hemorrhoids, pt also recently admitted to [facility] and treated for double pneumonia/sepsis/histoplasmosis infection and was sent home with home oxygen. Other hx: Severe COPD, past norco addiction and is on suboxone past 4 year and it is being weaned down, MIs x3. Last Myocardial Infarction Date:: 2008 History of Any Multi-Drug Resistant Organisms: None Reported Past Surgical History: AICD, Heart Catheterization, Heart Catheterization With Stent, Hernia Repair, Orthopedic Surgery, Pacemaker Additional Past Surgical History / Comment(s): PCI with stents, AICD/pacer, EGD/colonoscopy, bronchoscopies x2, bilateral inguinal hernia repairs, bilateral carpal tunnel releases. Past Anesthesia/Blood Transfusion Reactions: No Reported Reaction Date of Last Stent Placement:: 2010 Type of Cardiac Device: Permanent Pacemaker, AICD Device Placement Date:: 2008 Past Psychological History: No Psychological Hx Reported Additional Psychological History / Comment(s): Pt resides with his spouse. He has home oxygen. Smoking Status: Former smoker Past Alcohol Use History: None Reported Additional Past Alcohol Use History / Comment(s): Pt started smoking in 1978 and had been cutting back then quit end of June 2021 Past Drug Use History: None Reported Additional Drug Use History / Comment(s): Marijuana at night 6 nights a week to sleep - Past Family History Father Family Medical History: No Reported History Additional Family Medical History / Comment(s): Father pt believes d/t his spouses passing. Mother Family Medical History: Myocardial Infarction ([place]) Additional Family Medical History / Comment(s): Mother of a massive [place] at the age of 53yrs. Medications and Allergies Home Medications Medication Instructions Recorded Confirmed Type Buprenorphine HCl/Naloxone HCl 0.5 film SL TID PRN 03/13/15 08/04/21 History [Suboxone 8 mg-2 mg Sl Film] Aspirin [Adult Low Dose Aspirin EC] 81 tab PO DAILY 03/28/17 08/04/21 History Albuterol Inhaler [Ventolin Hfa 2 puff INHALATION RT-QID PRN 06/19/21 08/04/21 History Inhaler] Atorvastatin [Lipitor] 40 mg PO HS 06/19/21 08/04/21 History Fluticasone/Umeclidin/Vilanter 1 puff INHALATION RT-DAILY 06/19/21 08/04/21 History [Trelegy Ellipta 200-62.5-25] Nicotine 21Mg/24Hr Patch [Habitrol] 1 patch TRANSDERM DAILY 06/19/21 08/04/21 History carvediloL [Coreg] 3.125 mg PO HS 06/29/21 08/04/21 History Acetaminophen Tab [Tylenol] 650 mg PO Q6HR PRN tab 07/03/21 08/04/21 Rx Furosemide [Lasix] 60 mg PO DAILY #45 tab 07/31/21 08/04/21 Rx Itraconazole [Sporanox] 200 mg PO TID 30 Days #120 capsule 07/31/21 08/04/21 Rx Pantoprazole [Protonix] 40 mg PO DAILY@1200 08/04/21 08/04/21 History Sodium Chloride 0.65% Nasal [Deep 1 spray EA NOSTRIL Q4HR PRN 08/04/21 08/04/21 History Sea (Saline)] Allergies Allergy/AdvReac Type Severity Reaction Status Date / Time clopidogrel bisulfate Allergy Anaphylaxis Verified 08/04/21 21:41 [From Plavix] Physical Exam Vitals: Vital Signs Temp Pulse Resp BP Pulse Ox 08/05/21 10:00 57 L 22 97 08/05/21 09:00 58 L 21 93/63 100 08/05/21 08:00 98.2 F 62 18 114/77 97 08/05/21 07:00 54 L 22 100/76 96 08/05/21 06:00 56 L 22 104/81 69 L 08/05/21 05:00 61 22 91/61 98 08/05/21 04:00 97.9 F 22 110/88 100 08/05/21 03:06 97.6 F 62 22 116/97 100 08/05/21 03:00 62 21 113/91 100 08/05/21 02:29 97.8 F 64 22 112/87 100 08/05/21 02:00 64 22 108/83 100 08/05/21 01:50 97.9 F 65 22 108/83 100 08/05/21 01:20 97.9 F 67 22 106/82 100 08/05/21 01:10 98.1 F 67 22 106/81 100 08/05/21 01:00 69 22 97/74 97 08/05/21 00:00 98.1 F 85 22 86/58 98 08/04/21 23:29 36 H 08/04/21 23:20 91 22 91/64 97 08/04/21 22:20 92 08/04/21 22:13 93 08/04/21 22:07 92 24 81/60 89 L 08/04/21 21:00 92 22 88/61 92 L 08/04/21 20:48 85 22 66/48 92 L 08/04/21 20:23 97.6 F 82 22 91/60 100 Intake and Output 08/04/21 08/05/21 08/05/21 22:59 06:59 14:59 Intake Total 994.715 269.511 Output Total 300 910 400 Balance -300 84.715 -130.489 Intake: IV 650 Sodium Chloride 0.9% 1, 650 000 ml @ 130 mls/hr IV . Q7H42M [facility] Rx#:[id number] Intake, IV Titration 34.715 269.511 Amount Norepinephrine 4 mg In 101.55 Sodium Chloride 0.9% 250 ml @ 0.05 MCG/KG/MIN 10. 939 mls/hr IV .[id number] Rx#:[id number] Sodium Chloride 0.9% 1, 100 000 ml @ 50 mls/hr IV . Q20H [facility] Rx#:[id number] propofoL 1,000 mg In 34.715 67.961 Empty Bag 1 bag @ 5 MCG/ KG/MIN 1.723 mls/hr IV . Q24H [facility] Rx#:[id number] Blood Product 310 Rc As-1 Unit 310 [id number] Output: Urine 300 910 400 Uretheral (Bolaños) 300 Other: Voiding Method Indwelling Catheter Indwelling Catheter Weight 57.425 kg 55.2 kg ABP, PAP, CO, CI - Last 8 Hours Arterial Blood Pressure 89/50 Arterial Blood Pressure 125/66 Gen. appearance the patient is sedated with propofol, has a body mass index of 20.3, calm and comfortable and sedated with the mechanical ventilator. He does have some evidence of subcutaneous emphysema over the neck and anterior chest area on inspection. Head exam was generally normal. There was no scleral icterus or corneal arcus. Mucous membranes were moist. Neck was supple and without jugular venous distension, thyromegaly, or carotid bruits. Carotids were easily palpable bilaterally. There was no adenopathy. There is evidence of septicemia 17 over the neck area especially on the right and the patient has a orogastric and orotracheal tube are both in place. Lungs sounds are diminished and the patient has evidence of subcutaneous emphysema over the anterior chest. The patient also has a left-sided chest tube which is a 32-Togolese chest tube with positive air leak. No significant fluid output from the left hemithorax. Scattered rhonchi. No significant wheezing. Cardiac exam revealed the PMI to be normally situated and sized. The rhythm was regular and no extrasystoles were noted during several minutes of auscultation. The first and second heart sounds were normal and physiologic splitting of the second heart sound was noted. There were no murmurs, rubs, clicks, or gallops. Patient has an AICD pocket over the left anterior chest area. Abdominal exam revealed normal bowel sounds. The abdomen was soft, non-tender, and without masses, organomegaly, or appreciable enlargement of the abdominal aorta. Examination of the extremities revealed easily palpable radial, femoral and pedal pulses. There was no cyanosis, clubbing or edema. Examination of the skin revealed no evidence of significant rashes, suspicious appearing nevi or other concerning lesions. Neurologically the patient is sedated and the patient is calm and comfortable Results - Laboratory Findings CBC and BMP: 08/05/21 07:16 08/05/21 07:16 ABG ABG pH 7.46 (7.35-7.45) H 08/05/21 05:54 ABG pCO2 39 mmHg (35-45) 08/05/21 05:54 ABG pO2 95 mmHg (83-108) 08/05/21 05:54 ABG O2 Saturation 97.9 % (94-97) H 08/05/21 05:54 PT/INR, D-dimer PT 10.6 sec (9.0-12.0) 08/05/21 08:37 INR 1.0 (<1.2) 08/05/21 08:37 Abnormal lab findings: Abnormal Labs 08/04/21 08/04/21 08/04/21 20:42 20:47 21:20 RBC 2.29 L Hgb 6.2 L* D Hct 19.9 L* RDW 17.9 H Plt Count Neutrophils # 9.3 H Lymphocytes # 0.5 L ABG pH ABG pO2 284 H ABG HCO3 30 H ABG Total CO2 31 H ABG O2 Saturation 100.0 H Sodium Potassium Creatinine Glucose POC Glucose (mg/dL) 107 H Calcium Magnesium Alkaline Phosphatase Creatine Kinase Troponin I Total Protein Albumin Crossmatch 08/04/21 08/04/21 08/04/21 21:20 21:20 21:20 RBC Hgb Hct RDW Plt Count Neutrophils # Lymphocytes # ABG pH ABG pO2 ABG HCO3 ABG Total CO2 ABG O2 Saturation Sodium 134 L Potassium 3.1 L Creatinine 0.63 L Glucose POC Glucose (mg/dL) Calcium 6.5 L Magnesium 1.5 L Alkaline Phosphatase 168 H Creatine Kinase 30 L Troponin I 0.576 H* Total Protein 5.0 L Albumin 2.2 L Crossmatch See Detail 08/05/21 08/05/21 08/05/21 01:56 05:54 07:16 RBC 3.23 L Hgb 8.8 L D Hct 28.4 L RDW 17.2 H Plt Count 465 H Neutrophils # Lymphocytes # ABG pH 7.46 H ABG pO2 ABG HCO3 28 H ABG Total CO2 29 H ABG O2 Saturation 97.9 H Sodium Potassium Creatinine Glucose POC Glucose (mg/dL) 167 H Calcium Magnesium Alkaline Phosphatase Creatine Kinase Troponin I Total Protein Albumin Crossmatch 08/05/21 07:16 RBC Hgb Hct RDW Plt Count Neutrophils # Lymphocytes # ABG pH ABG pO2 ABG HCO3 ABG Total CO2 ABG O2 Saturation Sodium Potassium Creatinine 0.54 L Glucose 147 H POC Glucose (mg/dL) Calcium 7.6 L Magnesium Alkaline Phosphatase 188 H Creatine Kinase Troponin I Total Protein 5.8 L Albumin 2.6 L Crossmatch - Diagnostic Findings Chest x-ray: image reviewed Assessment and Plan Plan: 1 acute hypoxic respiratory failure secondary to a large secondary pneumothorax, a complication of bullous emphysema and pneumonia for which the patient was being treated on outpatient basis. Patient is currently intubated on a mechanical ventilator. 2 large left-sided neck and a pneumothorax, post chest tube insertion and the patient currently is a 32-Togolese chest tube in place with adequate expansion of the left lung without any residual pneumothorax. There is persistent air leak on the Pleur-evac 3 advanced COPD with bullous changes in the upper lobes bilaterally 4 hypotension secondary to above, currently on low-dose norepinephrine infusion 5 Histoplasma pneumonia with upper lobe predominance. The patient had bilateral upper lobe pneumonia status post recent bronchoscopy with BAL on 06/24/2021, with negative BAL and viral cultures, COVID-19 PCR was negative. Patient is status post repeat bronchoscopy with BAL on 07/07/2021 with transbronchial biopsies of the right middle lobe, brushings and BAL of the right middle lobe, transbronchial biopsies were consistent with organizing pneumonia, BAL cultures negative thus far. Meanwhile, the patient had positive histoplasma antibody titers. Histoplasma serum antigen came back positive. 6 coronary artery disease with previous myocardial infarction 7 history of atrial fibrillation 8 history of pacemaker/SB placement 9 history of CHF with systolic heart failure with an ejection fraction of 3035% 10 history of bilateral inguinal hernia repair 11 history of prescription narcotic abuse currently on Suboxone 12 chronic anxiety Plan Continue ventilator support monitor the air leak from the left-sided chest tube Daily chest x-ray Start the patient on bronchodilators Resume itraconazole 200 mg by mouth 3 times a day Wean off pressors Gentle fluid hydration with normal state rate of 50 mL an hour IV Protonix Lovenox for DVT prophylaxis IV Dilaudid for pain control We'll initiate enteral feeding for nutritional support We'll insert a arterial line We'll continue to follow. Condition is obvious the critical. Time with Patient: Greater than 30
--- NOTE | 2021-08-05 12:06 | P.PCN ---
Date of Procedure: 08/05/21 Preoperative Diagnosis: Acute hypoxic respiratory failure, left-sided pneumothorax Postoperative Diagnosis: Acute hypoxic respiratory failure, left-sided pneumothorax Procedure(s) Performed: 1 left-sided chest tube insertion 2 Right radial arterial line insertion Anesthesia: local Operative Findings: Chest tube insertion A time-out was completed verifying correct patient, procedure, site, positioning, and special equipment if applicable. The patient was positioned appropriately for chest tube placement. The patient left chest was prepped and draped in sterile fashion. 1% Lidocaine was used to anesthetize the surrounding skin area. A 2 cm skin incision was made in the mid-axillary line at the inframammarycrease. Utilizing blunt dissection a subcutaneous tunnel was created cephalad just adjacent to the superior rib. The pleural space was entered bluntly and gush of air was observed. A finger was inserted into the pleural space to check for anatomy and guide tube insertion. A 32 F thoracostomy tube was inserted using a Susi clamp and positioned appropriately. The chest tube was sutured securely to the skin and a sterile dressing applied. A pleurevac was attached to the chest tube and a chest x-ray obtained. I personally performed this procedure and I was was present for the entire procedure. Estimated Blood Loss:0 The patient tolerated the procedure well and there were no complications. Arterial line insertion Indication: Hemodynamic monitoring. A time-out was completed verifying correct patient, procedure, site, p ositioning, and implant(s) or special equipment if applicable. Allens test was performed to ensure adequate perfusion. The patients right wrist was prepped and draped in sterile fashion. 1% Lidocaine was used to anesthetize the area. An 18G Arrow arterial line was introduced into the radial artery. The catheter was threaded over the guide wire and the needle was removed with appropriate pulsatile blood return. Blood loss was minimal. The catheter was then sutured in place to the skin and a sterile dressing applied. Perfusion to the extremity distal to the point of catheter insertion was checked and found to be adequate. The patient tolerated the procedure well and there were no complications.
[2021-08-05] MEDS: IPRATROPIUM-ALBUTEROL 3 ML NEB INHALATION SCH ×4 (12:09→23:45)
--- NOTE | 2021-08-05 12:09 | P.CRDCN ---
History of Present Illness Consult date: 08/05/21 History of present illness: This is a 56-year-old gentleman with history of paroxysmal atrial fibrillation, coronary artery disease with multiple stents placed in [place], heart failure and also AICD implantation, COPD and also recent GI bleeding was taken to the [facility] with complaints of shortness of breath. He was found to have evidence of tension pneumothorax. He was intubated and also had a chest tube and subsequently transferred to [facility]. Apparently he developed some subcutaneous emphysema continued to have more pneumothorax requ iring further chest tube placement. Patient is also intubated and sedated. We're asked to she the patient because of previous cardiac history and abnormal troponin. Patient also has severe anemia on admission. At the time of my examination patient intubated. Patient also had a recent episode of sepsis and the histoplasmosis. A chest x-ray shows bilateral upper lobe infiltrates. This point we will go to continue monitoring his troponin values and get an echocardiogram. Continue current medical therapy. Further recommendations depend upon the clinical course. Patient is not a candidate for acute intervention at this time. EKG showed sinus rhythm with evidence of previous anteroseptal myocardial infarction. No acute ischemic changes are noted at this time. Review of Systems Not obtained Past Medical History Past Medical History: Atrial Fibrillation, Coronary Artery Disease (CAD), Chest Pain / Angina, Heart Failure, COPD, Myocardial Infarction (ND) Additional Past Medical History / Comment(s): Pt recently sent from [facility] ER to [facility] for lower GI bleed/he states he had endoscopies and was told he had an ulcer/polyps and hemorrhoids, pt also recently admitted to [facility] and tr eated for double pneumonia/sepsis/histoplasmosis infection and was sent home with home oxygen. Other hx: Severe COPD, past norco addiction and is on suboxone past 4 year and it is being weaned down, MIs x3. Last Myocardial Infarction Date:: 2008 History of Any Multi-Drug Resistant Organisms: None Reported Past Surgical History: AICD, Heart Catheterization, Heart Catheterization With Stent, Hernia Repair, Orthopedic Surgery, Pacemaker Additional Past Surgical History / Comment(s): PCI with stents, AICD/pacer, EGD/colonoscopy, bronchoscopies x2, bilateral inguinal hernia repairs, bilateral carpal tunnel releases. Past Anesthesia/Blood Transfusion Reactions: No Reported Reaction Date of Last Stent Placement:: 2010 Type of Cardiac Device: Permanent Pacemaker, AICD Device Placement Date:: 2008 Past Psychological History: No Psychological Hx Reported Additional Psychological History / Comment(s): Pt resides with his spouse. He has home oxygen. Smoking Status: Former smoker Past Alcohol Use History: None Reported Additional Past Alcohol Use History / Comment(s): Pt started smoking in 1978 and had been cutting back then quit end of June 2021 Past Drug Use History: None Reported Additional Drug Use History / Comment(s): Marijuana at night 6 nights a week to sleep - Past Family History Father Family Medical History: No Reported History Additional Family Medical History / Comment(s): Father pt believes d/t his spouses passing. Mother Family Medical History: Myocardial Infarction (ND) Additional Family Medical History / Comment(s): Mother of a massive ND at the age of 53yrs. Medications and Allergies Home Medications Medication Instructions Recorded Confirmed Type Buprenorphine HCl/Naloxone HCl 0.5 film SL TID PRN 03/13/15 08/04/21 History [Suboxone 8 mg-2 mg Sl Film] Aspirin [Adult Low Dose Aspirin EC] 81 tab PO DAILY 03/28/17 08/04/21 History Albuterol Inhaler [Ventolin Hfa 2 puff INHALATION RT-QID PRN 06/19/21 08/04/21 History Inhaler] Atorvastatin [Lipitor] 40 mg PO HS 06/19/21 08/04/21 History Fluticasone/Umeclidin/Vilanter 1 puff INHALATION RT-DAILY 06/19/21 08/04/21 His tory [Trelegy Ellipta 200-62.5-25] Nicotine 21Mg/24Hr Patch [Habitrol] 1 patch TRANSDERM DAILY 06/19/21 08/04/21 History carvediloL [Coreg] 3.125 mg PO HS 06/29/21 08/04/21 History Acetaminophen Tab [Tylenol] 650 mg PO Q6HR PRN tab 07/03/21 08/04/21 Rx Furosemide [Lasix] 60 mg PO DAILY #45 tab 07/31/21 08/04/21 Rx Itraconazole [Sporanox] 200 mg PO TID 30 Days #120 capsule 07/31/21 08/04/21 Rx Pantoprazole [Protonix] 40 mg PO DAILY@1200 08/04/21 08/04/21 History Sodium Chloride 0.65% Nasal [Deep 1 spray EA NOSTRIL Q4HR PRN 08/04/21 08/04/21 History Sea (Saline)] Allergies Allergy/AdvReac Type Severity Reaction Status Date / Time clopidogrel bisulfate Allergy Anaphylaxis Verified 08/04/21 21:41 [From Plavix] Physical Exam Vitals: Vital Signs Temp Pulse Resp BP Pulse Ox 08/05/21 10:00 57 L 22 97 08/05/21 09:00 58 L 21 93/63 100 08/05/21 08:00 98.2 F 62 18 114/77 97 08/05/21 07:00 54 L 22 100/76 96 08/05/21 06:00 56 L 22 104/81 69 L 08/05/21 05:00 61 22 91/61 98 08/05/21 04:00 97.9 F 22 110/88 100 08/05/21 03:06 97.6 F 62 22 116/97 100 08/05/21 03:00 62 21 113/91 100 08/05/21 02:29 97.8 F 64 22 112/87 100 08/05/21 02:00 64 22 108/83 100 08/05/21 01:50 97.9 F 65 22 108/83 100 08/05/21 01:20 97.9 F 67 22 106/82 100 08/05/21 01:10 98.1 F 67 22 106/81 100 08/05/21 01:00 69 22 97/74 97 08/05/21 00:00 98.1 F 85 22 86/58 98 08/04/21 23:29 36 H 08/04/21 23:20 91 22 91/64 97 08/04/21 22:20 92 08/04/21 22:13 93 08/04/21 22:07 92 24 81/60 89 L 08/04/21 21:00 92 22 88/61 92 L 08/04/21 20:48 85 22 66/48 92 L 08/04/21 20:23 97.6 F 82 22 91/60 100 Intake and Output 08/04/21 08/05/21 08/05/21 22:59 06:59 14:59 Intake Total 994.715 269.511 Output Total 300 910 400 Balance -300 84.715 -130.489 Intake: IV 650 Sodium Chloride 0.9% 1, 650 000 ml @ 130 mls/hr IV . Q7H42M [facility] Rx#:[id number] Intake, IV Titration 34.715 269.511 Amount Norepinephrine 4 mg In 101.55 Sodium Chloride 0.9% 250 ml @ 0.05 MCG/KG/MIN 10. 939 mls/hr IV .[id number] [facility] Rx#:[id number] Sodium Chloride 0.9% 1, 100 000 ml @ 50 mls/hr IV . Q20H [facility] Rx#:[id number] propofoL 1,000 mg In 34.715 67.961 Empty Bag 1 bag @ 5 MCG/ KG/MIN 1.723 mls/hr IV . Q24H [facility] Rx#:[id number] Blood Product 310 Rc As-1 Unit 310 [id number] Output: Urine 300 910 400 Uretheral (Bolaños) 300 Other: Voiding Method Indwelling Catheter Indwelling Catheter Weight 57.425 kg 55.2 kg ABP, PAP, CO, CI - Last 8 Hours Arterial Blood Pressure 89/50 Arterial Blood Pressure 125/66 This patient is intubated and sedated. Lungs: Patient has a left-sided chest tube. Diminished breath sounds Heart: Distant heart sounds but regular, serial murmurs appreciated. Abdomen soft, extremities no significant edema Results 08/05/21 07:16 08/05/21 07:16 Cardiac Enzymes 08/04/21 08/04/21 08/05/21 Range/Units 21:20 21:20 07:16 AST 42 38 (17-59) U/L Troponin I 0.576 H* (0.000-0.034) ng/mL Coagulation 08/05/21 Range/Units 08:37 PT 10.6 (9.0-12.0) sec APTT 23.6 (22.0-30.0) sec CBC 08/04/21 08/05/21 Range/Units 21:20 07:16 WBC 10.3 7.9 (3.8-10.6) k/uL RBC 2.29 L 3.23 L (4.30-5.90) m/uL Hgb 6.2 L* D 8.8 L D (13.0-17.5) gm/dL Hct 19.9 L* 28.4 L (39.0-53.0) % Plt Count 423 465 H (150-450) k/uL Comprehensive Metabolic Panel 08/04/21 08/05/21 Range/Units 21:20 07:16 Sodium 134 L 140 (137-145) mmol/L Potassium 3.1 L 3.6 (3.5-5.1) mmol/L Chloride 104 105 (98-107) mmol/L Carbon Dioxide 26 26 (22-30) mmol/L BUN 12 13 (9-20) mg/dL Creatinine 0.63 L 0.54 L (0.66-1.25) mg/dL Glucose 97 147 H (74-99) mg/dL Calcium 6.5 L 7.6 L (8.4-10.2) mg/dL AST 42 38 (17-59) U/L ALT 33 35 (4-49) U/L Alkaline Phosphatase 168 H 188 H (38-126) U/L Total Protein 5.0 L 5.8 L (6.3-8.2) g/dL Albumin 2.2 L 2.6 L (3.5-5.0) g/dL Current Medications Generic Name Dose Route Start Last Admin Trade Name Freq PRN Reason Stop Dose Admin Albuterol/Ipratropium 3 ml 08/05/21 12:00 Ipratropium-Albuterol 3 Ml Neb INHALATION RT-Q4H [facility] Albuterol/Ipratropium 3 ml 08/05/21 08:02 Ipratropium-Albuterol 3 Ml Neb INHALATION RT-Q2H PRN Shortness Of Breath Or Wheezing Aspirin 81 mg 08/05/21 09:00 08/05/21 08:53 Aspirin 81 Mg PO 81 mg DAILY [facility] Administration Atorvastatin Calcium 40 mg 08/05/21 21:00 Atorvastatin 40 Mg Tab PO HS [facility] Enoxaparin Sodium 40 mg 08/05/21 09:00 08/05/21 08:53 Enoxaparin 40 Mg/0.4 Ml Syringe SQ 40 mg DAILY [facility] Administration Hydromorphone HCl 1 mg 08/05/21 08:04 Hydromorphone 1 Mg/Ml 1 Ml Syringe IVP Q4HR PRN Pain Norepinephrine Bitartrate 4 mg 254 mls @ 10.939 mls/hr 08/04/21 21:03 08/05/21 08:30 / Sodium Chloride IV 08/05/21 20:16 0 mcg/kg/min .[id number] ONE 0 mls/hr Titration Protocol 0.05 MCG/KG/MIN Propofol 1,000 mg/ IV Solution 100 mls @ 1.723 mls/hr 08/05/21 02:00 08/05/21 10:47 IV 45 mcg/kg/min .Q24H [facility] 15.505 mls/hr Titration Protocol 5 MCG/KG/MIN Sodium Chloride 1,000 mls @ 50 mls/hr 08/05/21 08:00 08/05/21 08:54 Saline 0.9% IV 50 mls/hr .Q20H [facility] Administration Itraconazole 200 mg 08/05/21 09:00 08/05/21 08:53 Itraconazole 100 Mg Cap PO 200 mg TID [facility] Administration Protocol Naloxone HCl 0.2 mg 08/04/21 22:42 Naloxone 0.4 Mg/Ml 1 Ml Vial IV Q2M PRN Opioid Reversal Non-Formulary Medication 0.5 film 08/05/21 07:48 08/05/21 10:06 Buprenorphine Hcl/Naloxone Hcl [Suboxone 8 Mg-2 Mg Sl Film] SUBLINGUAL 0.5 film TID PRN Administration Pain/Withdrawal Pantoprazole Sodium 40 mg 08/05/21 09:00 08/05/21 08:53 Pantoprazole 40 Mg/10 Ml Vial IV 40 mg BID [facility] Administration Intake and Output 08/04/21 08/05/21 08/05/21 22:59 06:59 14:59 Intake Total 994.715 269.511 Output Total 300 910 400 Balance -300 84.715 -130.489 Intake: IV 650 Sodium Chloride 0.9% 1, 650 000 ml @ 130 mls/hr IV . Q7H42M [facility] Rx#:[id number] Intake, IV Titration 34.715 269.511 Amount Norepinephrine 4 mg In 101.55 Sodium Chloride 0.9% 250 ml @ 0.05 MCG/KG/MIN 10. 939 mls/hr IV .[id number] [facility] Rx#:[id number] Sodium Chloride 0.9% 1, 100 000 ml @ 50 mls/hr IV . Q20H [facility] Rx#:[id number] propofoL 1,000 mg In 34.715 67.961 Empty Bag 1 bag @ 5 MCG/ KG/MIN 1.723 mls/hr IV . Q24H [facility] Rx#:[id number] Blood Product 310 Rc As-1 Unit 310 [id number] Output: Urine 300 910 400 Uretheral (Bolaños) 300 Other: Voiding Method Indwelling Catheter Indwelling Catheter Weight 57.425 kg 55.2 kg 08/05/21 07:16 08/05/21 07:16 EKG Interpretations (text) Sinus rhythm with evidence of old anteroseptal ND Assessment and Plan (1) Tension pneumothorax Current Visit: Yes Status: Acute Code(s): J93.0 - SPONTANEOUS TENSION PNEUMOTHORAX SNOMED Code(s): 820962349 (2) CAD (coronary artery disease) Current Visit: Yes Status: Acute Code(s): I25.10 - ATHSCL HEART DISEASE OF [place] CORONARY ARTERY W/O ANG PCTRS SNOMED Code(s): 01631101 (3) Acute respiratory failure Current Visit: Yes Status: Acute Code(s): J96.00 - ACUTE RESPIRATORY FAILURE, UNSP W HYPOXIA OR HYPERCAPNIA SNOMED Code(s): 12405411 (4) COPD (chronic obstructive pulmonary disease) Current Visit: Yes Status: Acute Code(s): J44.9 - CHRONIC OBSTRUCTIVE PULMONARY DISEASE, UNSPECIFIED SNOMED Code(s): 26031598 (5) Cardiomyopathy Current Visit: Yes Status: Acute Code(s): I42.9 - CARDIOMYOPATHY, UNSPECIFIED SNOMED Code(s): 81763572 (6) AICD (automatic cardioverter/defibrillator) present Current Visit: Yes Status: Acute Code(s): Z95.810 - PRESENCE OF AUTOMATIC (IMPLANTABLE) CARDIAC DEFIBRILLATOR SNOMED Code(s): 227600700 (7) Elevated troponin Current Visit: Yes Status: Acute Code(s): R77.8 - OTHER SPECIFIED [place]NOR MALITIES OF PLASMA PROTEINS SNOMED Code(s): 817217012 Plan: Main problem is tension pneumothorax and underlying histoplasmosis and COPD. 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 History of multiple stents. We'll follow his troponin trend. Patient is also anemic with a GI bleeding from gastric ulcer and hemorrhoids. Patient is not a candidate for any acute cardiac event intervention. We'll get an echocardiogram to assess LV function. Further management as per manager route. We'll follow. Prognosis is poor
--- NOTE | 2021-08-05 12:13 | IR ---
PICC LINE PLACEMENT: HISTORY: Infection requiring long-term antibiotic therapy PROCEDURE: Ultrasound guidance of PICC line placement. ZIPPER CUTTER: COMPLICATIONS: None ANESTHESIA: 1. 1% Lidocaine locally. FINDINGS/TECHNIQUE: The procedure was explained to the patient. The risks, complications, benefits and alternatives were discussed and any questions were answered. Informed consent was obtained. The patient was placed supine on the fluoroscopic table and prepped and draped in the usual sterile fash ion. Utilizing a 21 gauge needle and sonographic guidance, access in the right brachial vein was ac hieved and there is placement of a 0.018 guidewire. The vein is patent. A 5-F. sheath was placed ov er the guidewire. The guidewire and dilator were removed and a 5-F. Double lumen PICC line was place d through the sheath with the chest x-ray confirming the tip at the level of the SVC. The sheath was removed, the catheter was flushed and sutured into position. The patient was stable throughout the procedure and remained stable upon discharge from the Department of Radiology. The vein puncture was patent under ultrasound. A wood scale image was obtained to document patency of the vein punctured. All elements of the maximal barrier technique were utilized. IMPRESSION: 1. Successful PICC line placement under ultrasound performed bedside within the ICU.
--- NOTE | 2021-08-05 13:13 | P.PN ---
Subjective Patient was examined in the ICU. Currently mechanically ventilated low dose of pressors. Case discussed with RN present at bedside. A-line, Bolaños catheter in place. No family members are present at bedside today. Objective - Vital Signs Vital signs: Vital Signs Temp 98.3 F 08/05/21 12:00 Pulse 60 08/05/21 12:19 Resp 22 08/05/21 12:00 BP 93/63 08/05/21 09:00 Pulse Ox 99 08/05/21 12:00 Intake & Output 08/04/21 08/05/21 08/05/21 18:59 06:59 18:59 Intake Total 994.715 369.511 Output Total 1210 675 Balance -215.285 -305.489 Weight 55.2 kg Intake: IV 650 Sodium Chloride 0.9% 1, 650 000 ml @ 130 mls/hr IV . Q7H42M [facility] Rx#:[id number] Intake, IV Titration 34.715 369.511 Amount Norepinephrine 4 mg In 101.55 Sodium Chloride 0.9% 250 ml @ 0.05 MCG/KG/MIN 10. 939 mls/hr IV .[id number] [facility] Rx#:[id number] Sodium Chloride 0.9% 1, 200 000 ml @ 50 mls/hr IV . Q20H [facility] Rx#:[id number] propofoL 1,000 mg In 34.715 67.961 Empty Bag 1 bag @ 5 MCG/ KG/MIN 1.723 mls/hr IV . Q24H [facility] Rx#:[id number] Blood Product 310 Rc As-1 Unit 310 [id number] Output: Chest Tube Drainage 25 Chest Tube Left 25 Urine 1210 650 Uretheral (Bolaños) 300 Other: Voiding Method Indwelling Catheter Indwelling Catheter ABP, PAP, CO, CI - Last Documented Arterial Blood Pressure 121/69 - Exam Constitutional: Intubated and sedated Neck: Supple, no masses, or JVD, significant subcutaneous emphysema No carotid bruits No thyromegaly Lungs: Severely diminished breath sounds over the left side Increased no to percussion over the left side, significant subcutaneous emphysema throughout the chest Normal respiratory effort, no accessory muscle use Chest tube in place. Cardiovascular: Heart regular in rate and rhythm, No murmurs, gallops, or rubs No peripheral edema Abdominal: Soft Nontender, no guarding, rebound or rigidity Abdomen moving with respiration Normoactive bowel sounds No hepatomegaly, No splenomegaly No palpable mass No abdominal wall hernia noted Skin: Significant subcutaneous emphysema and crepitation over the anterior chest, left-sided pigtail type of chest tube inserted in place Extremities: No digital cyanosis Clubbing toes Pedal pulses intact and symmetrical Radial pulses intact and symmetrical Psychiatric: Patient intubated sedated Neuro unable to perform patient intubated sedated Lymphatics: no palpable cervical or supraclavicular , or inguinal lymph nodes - Labs CBC & Chem 7: 08/05/21 07:16 08/05/21 07:16 Labs: Abnormal Lab Results - Last 24 Hours (Table) 08/04/21 08/04/21 08/04/21 Range/Units 20:42 20:47 21:20 RBC 2.29 L (4.30-5.90) m/uL Hgb 6.2 L* D (13.0-17.5) gm/dL Hct 19.9 L* (39.0-53.0) % RDW 17.9 H (11.5-15.5) % Plt Count (150-450) k/uL Neutrophils # 9.3 H (1.3-7.7) k/uL Lymphocytes # 0.5 L (1.0-4.8) k/uL ABG pH (7.35-7.45) ABG pO2 284 H (83-108) mmHg ABG HCO3 30 H (21-25) mmol/L ABG Total CO2 31 H (19-24) mmol/L ABG O2 Saturation 100.0 H (94-97) % Sodium (137-145) mmol/L Potassium (3.5-5.1) mmol/L Creatinine (0.66-1.25) mg/dL Glucose (74-99) mg/dL POC Glucose (mg/dL) 107 H (75-99) mg/dL Calcium (8.4-10.2) mg/dL Magnesium (1.6-2.3) mg/dL Alkaline Phosphatase (38-126) U/L Creatine Kinase (55-170) U/L Troponin I (0.000-0.034) ng/mL Total Protein (6.3-8.2) g/dL Albumin (3.5-5.0) g/dL Crossmatch 04/05/22 04/05/22 04/05/22 Range/Units 21:20 21:20 21:20 RBC (4.30-5.90) m/uL Hgb (13.0-17.5) gm/dL Hct (39.0-53.0) % RDW (11.5-15.5) % Plt Count (150-450) k/uL Neutrophils # (1.3-7.7) k/uL Lymphocytes # (1.0-4.8) k/uL ABG pH (7.35-7.45) ABG pO2 (83-108) mmHg ABG HCO3 (21-25) mmol/L ABG Total CO2 (19-24) mmol/L ABG O2 Saturation (94-97) % Sodium 134 L (137-145) mmol/L Potassium 3.1 L (3.5-5.1) mmol/L Creatinine 0.63 L (0.66-1.25) mg/dL Glucose (74-99) mg/dL POC Glucose (mg/dL) (75-99) mg/dL Calcium 6.5 L (8.4-10.2) mg/dL Magnesium 1.5 L (1.6-2.3) mg/dL Alkaline Phosphatase 168 H (38-126) U/L Creatine Kinase 30 L (55-170) U/L Troponin I 0.576 H* (0.000-0.034) ng/mL Total Protein 5.0 L (6.3-8.2) g/dL Albumin 2.2 L (3.5-5.0) g/dL Crossmatch See Detail 08/05/21 08/05/21 08/05/21 Range/Units 01:56 05:54 07:16 RBC 3.23 L (4.30-5.90) m/uL Hgb 8.8 L D (13.0-17.5) gm/dL Hct 28.4 L (39.0-53.0) % RDW 17.2 H (11.5-15.5) % Plt Count 465 H (150-450) k/uL Neutrophils # (1.3-7.7) k/uL Lymphocytes # (1.0-4.8) k/uL ABG pH 7.46 H (7.35-7.45) ABG pO2 (83-108) mmHg ABG HCO3 28 H (21-25) mmol/L ABG Total CO2 29 H (19-24) mmol/L ABG O2 Saturation 97.9 H (94-97) % Sodium (137-145) mmol/L Potassium (3.5-5.1) mmol/L Creatinine (0.66-1.25) mg/dL Glucose (74-99) mg/dL POC Glucose (mg/dL) 167 H (75-99) mg/dL Calcium (8.4-10.2) mg/dL Magnesium (1.6-2.3) mg/dL Alkaline Phosphatase (38-126) U/L Creatine Kinase (55-170) U/L Troponin I (0.000-0.034) ng/mL Total Protein (6.3-8.2) g/dL Albumin (3.5-5.0) g/dL Crossmatch 08/05/21 Range/Units 07:16 RBC (4.30-5.90) m/uL Hgb (13.0-17.5) gm/dL Hct (39.0-53.0) % RDW (11.5-15.5) % Plt Count (150-450) k/uL Neutrophils # (1.3-7.7) k/uL Lymphocytes # (1.0-4.8) k/uL ABG pH (7.35-7.45) ABG pO2 (83-108) mmHg ABG HCO3 (21-25) mmol/L ABG Total CO2 (19-24) mmol/L ABG O2 Saturation (94-97) % Sodium (137-145) mmol/L Potassium (3.5-5.1) mmol/L Creatinine 0.54 L (0.66-1.25) mg/dL Glucose 147 H (74-99) mg/dL POC Glucose (mg/dL) (75-99) mg/dL Calcium 7.6 L (8.4-10.2) mg/dL Magnesium (1.6-2.3) mg/dL Alkaline Phosphatase 188 H (38-126) U/L Creatine Kinase (55-170) U/L Troponin I (0.000-0.034) ng/mL Total Protein 5.8 L (6.3-8.2) g/dL Albumin 2.6 L (3.5-5.0) g/dL Crossmatch Assessment and Plan Assessment: Assessment: #1 acute hypoxic respiratory failure #2 tension pneumothorax left-sided status post chest tube #3 recent history of GI bleed #4 elevated cardiac troponin secondary to ACS versus demand ischemia #5 history of histoplasmosis #6 history of congestive heart failure with ICD in place Plan: -Patient currently admitted to ICU level of care -Aspiration/fall precaution/HOB 30 -Mechanical ventilation as per ICU protocol -Agree with resuming antifungal treatment ID consulted -Currently also consulted obtain 2-D echocardiogram conservative management from their perspective. As a patient not a candidate for any intervention at this time -DVT prophylaxis SCDs for now Prognosis unfortunately poor
[2021-08-05] MEDS: HYDROmorphone 1 MG/ML 1 ML SYRINGE IVP PRN (14:35)
[2021-08-05] MEDS: NOREPINEPHRINE 4 MG in SODIUM CHLORIDE 0.9% 250 ML IV SCH (19:30)
[2021-08-05] MEDS: ATORVASTATIN 40 MG TAB PO SCH (21:20)
[2021-08-05] MEDS: NON FORMULARY DRUG (Buprenorphine Hcl/Naloxone Hcl [Suboxone 8 Mg-2 Mg Sl Film] 1 EACH Fil SUBLINGUAL SCH (21:21)
--- NOTE | 2021-08-05 23:05 | P.CONS ---
History of Present Illness - Reason for Consult Consult date: 08/05/21 - History of Present Illness Patient is a 56-year male with a past medical history significant for COPD with extensive emphysematous changes with a recent prolonged hospital stay and the patient did have extensive work-up he was diagnosed with histoplasmosis on the basis of positive serum and urine antigen patient was treated with the amphotericin B and Sporanox after a week of IV therapy the patient was discha rged on Sporanox 200 mg twice daily with the patient was taking he was seen in the office recently as his Sporanox level was low dose was increased to 200 mg 3 times a day patient apparently went to the bathroom last night and he was urinating standing up felt very weak and apparently subsequently did have a fall the patient was complaining of increasing shortness of breath for the patient was taken to the [facility] patient was noticed to have a large left- sided pneumothorax he did have a small bore chest tube inserted the left lung patient was intubated and subsequently transferred to [facility] ER for further evaluation patient has been evaluated by tie binder chest tube has been inserted, patient on presentation to the hospital was afebrile did have normal white count has been continued on Sporanox infectious disease was consulted for further management, most information has been obtained from review the chart and talking to the patient daughter at the bedside Past Medical History Past Medical History: Atrial Fibrillation, Coronary Artery Disease (CAD), Chest Pain / Angina, Heart Failure, COPD, Myocardial Infarction (DC) Additional Past Medical History / Comment(s): Pt recently sent from [facility] ER to [facility] for lower GI bleed/he states he had endoscopies and was told he had an ulcer/polyps and hemorrhoids, pt also recently admitted to [facility] and treated for double pneumonia/sepsis/histoplasmosis infection and was sent home with home oxygen. Other hx: Severe COPD, past norco addiction and is on suboxone past 4 year and it is being weaned down, MIs x3. Last Myocardial Infarction Date:: 2008 History of Any Multi-Drug Resistant Organisms: None Reported Past Surgical History: AICD, Heart Catheterization, Heart Catheterization With Stent, Hernia Repair, Orthopedic Surgery, Pacemaker Additional Past Surgical History / Comment(s): PCI with stents, AICD/pacer, EGD/colonoscopy, bronchoscopies x2, bilateral inguinal hernia repairs, bilateral carpal tunnel releases. Past Anesthesia/Blood Transfusion Reactions: No Reported Reaction Date of Last Stent Placement:: 2010 Type of Cardiac Device: Permanent Pacemaker, AICD Device Placement Date:: 2008 Past Psychological History: No Psychological Hx Reported Additional Psychological History / Comment(s): Pt resides with his spouse. He has home oxygen. Smoking Status: Former smoker Past Alcohol Use History: None Reported Additional Past Alcohol Use History / Comment(s): Pt started smoking in 1978 and had been cutting back then quit end of June 2021 Past Drug Use History: None Reported Additional Drug Use History / Comment(s): Marijuana at night 6 nights a week to sleep - Past Family History Father Family Medical History: No Reported History Additional Family Medical History / Comment(s): Father pt believes d/t his spouses passing. Mother Family Medical History: Myocardial Infarction (DC) Additional Family Medical History / Comment(s): Mother of a massive DC at the age of 53yrs. Medications and Allergies Home Medications Medication Instructions Recorded Confirmed Type Buprenorphine HCl/Naloxone HCl 0.5 film SL TID PRN 03/13/15 08/04/21 History [Suboxone 8 mg-2 mg Sl Film] Aspirin [Adult Low Dose Aspirin EC] 81 tab PO DAILY 03/28/17 08/04/21 History Albuterol Inhaler [Ventolin Hfa 2 puff INHALATION RT-QID PRN 06/19/21 08/04/21 History Inhaler] Atorvastatin [Lipitor] 40 mg PO HS 06/19/21 08/04/21 History Fluticasone/Umeclidin/Vilanter 1 puff INHALATION RT-DAILY 06/19/21 08/04/21 History [Trelegy Ellipta 200-62.5-25] Nicotine 21Mg/24Hr Patch [Habitrol] 1 patch TRANSDERM DAILY 06/19/21 08/04/21 History carvediloL [Coreg] 3.125 mg PO HS 06/29/21 08/04/21 History Acetaminophen Tab [Tylenol] 650 mg PO Q6HR PRN tab 07/03/21 08/04/21 Rx Furosemide [Lasix] 60 mg PO DAILY #45 tab 07/31/21 08/04/21 Rx Itraconazole [Sporanox] 200 mg PO TID 30 Days #120 capsule 07/31/21 08/04/21 Rx Pantoprazole [Protonix] 40 mg PO DAILY@1200 08/04/21 08/04/21 History Sodium Chloride 0.65% Nasal [Deep 1 spray EA NOSTRIL Q4HR PRN 08/04/21 08/04/21 History Sea (Saline)] Allergies Allergy/AdvReac Type Severity Reaction Status Date / Time clopidogrel bisulfate Allergy Anaphylaxis Verified 08/04/21 21:41 [From Plavix] Physical Exam Vitals: Vital Signs Temp Pulse Resp BP Pulse Ox 08/05/21 13:00 57 L 22 98 08/05/21 12:45 61 22 98 08/05/21 12:19 60 08/05/21 12:11 56 L 08/05/21 12:00 98.3 F 56 L 22 99 08/05/21 11:00 55 L 23 100 08/05/21 10:00 57 L 22 97 08/05/21 09:00 58 L 21 93/63 100 08/05/21 08:00 98.2 F 62 18 114/77 97 08/05/21 07:00 54 L 22 100/76 96 08/05/21 06:00 56 L 22 104/81 69 L 08/05/21 05:00 61 22 91/61 98 08/05/21 04:00 97.9 F 22 110/88 100 08/05/21 03:06 97.6 F 62 22 116/97 100 08/05/21 03:00 62 21 113/91 100 08/05/21 02:29 97.8 F 64 22 112/87 100 08/05/21 02:00 64 22 108/83 100 08/05/21 01:50 97.9 F 65 22 108/83 100 08/05/21 01:20 97.9 F 67 22 106/82 100 08/05/21 01:10 98.1 F 67 22 106/81 100 08/05/21 01:00 69 22 97/74 97 08/05/21 00:00 98.1 F 85 22 86/58 98 08/04/21 23:29 36 H 08/04/21 23:20 91 22 91/64 97 08/04/21 22:20 92 08/04/21 22:13 93 08/04/21 22:07 92 24 81/60 89 L 08/04/21 21:00 92 22 88/61 92 L 08/04/21 20:48 85 22 66/48 92 L 08/04/21 20:23 97.6 F 82 22 91/60 100 Intake and Output 08/04/21 08/05/21 08/05/21 22:59 06:59 14:59 Intake Total 994.715 419.511 Output Total 300 910 825 Balance -300 84.715 -405.489 Intake: IV 650 Sodium Chloride 0.9% 1, 650 000 ml @ 130 mls/hr IV . Q7H42M [facility] Rx#:[id number] Intake, IV Titration 34.715 419.511 Amount Norepinephrine 4 mg In 101.55 Sodium Chloride 0.9% 250 ml @ 0.05 MCG/KG/MIN 10. 939 mls/hr IV .[id number] [facility] Rx#:[id number] Sodium Chloride 0.9% 1, 250 000 ml @ 50 mls/hr IV . Q20H [facility] Rx#:[id number] propofoL 1,000 mg In 34.715 67.961 Empty Bag 1 bag @ 5 MCG/ KG/MIN 1.723 mls/hr IV . Q24H [facility] Rx#:[id number] Blood Product 310 Rc As-1 Unit 310 [id number] Output: Chest Tube Drainage 25 Chest Tube Left 25 Urine 300 910 800 Uretheral (Bolaños) 300 Other: Voiding Method Indwelling Catheter Indwelling Catheter Weight 57.425 kg 55.2 kg ABP, PAP, CO, CI - Last 8 Hours Arterial Blood Pressure 118/68 Arterial Blood Pressure 118/67 Arterial Blood Pressure 121/69 Arterial Blood Pressure 126/79 Arterial Blood Pressure 89/50 Arterial Blood Pressure 125/66 Results CBC & Chem 7: 08/05/21 07:16 08/05/21 07:16 Labs: Abnormal Lab Results - Last 24 Hours (Table) 08/04/21 08/04/21 08/04/21 Range/Units 20:42 20:47 21:20 RBC 2.29 L (4.30-5.90) m/uL Hgb 6.2 L* D (13.0-17.5) gm/dL Hct 19.9 L* (39.0-53.0) % RDW 17.9 H (11.5-15.5) % Plt Count (150-450) k/uL Neutrophils # 9.3 H (1.3-7.7) k/uL Lymphocytes # 0.5 L (1.0-4.8) k/uL ABG pH (7.35-7.45) ABG pO2 284 H (83-108) mmHg ABG HCO3 30 H (21-25) mmol/L ABG Total CO2 31 H (19-24) mmol/L ABG O2 Saturation 100.0 H (94-97) % Sodium (137-145) mmol/L Potassium (3.5-5.1) mmol/L Creatinine (0.66-1.25) mg/dL Glucose (74-99) mg/dL POC Glucose (mg/dL) 107 H (75-99) mg/dL Calcium (8.4-10.2) mg/dL Magnesium (1.6-2.3) mg/dL Alkaline Phosphatase (38-126) U/L Creatine Kinase (55-170) U/L Troponin I (0.000-0.034) ng/mL Total Protein (6.3-8.2) g/dL Albumin (3.5-5.0) g/dL Crossmatch 08/04/21 08/04/21 08/04/21 Range/Units 21:20 21:20 21:20 RBC (4.30-5.90) m/uL Hgb (13.0-17.5) gm/dL Hct (39.0-53.0) % RDW (11.5-15.5) % Plt Count (150-450) k/uL Neutrophils # (1.3-7.7) k/uL Lymphocytes # (1.0-4.8) k/uL ABG pH (7.35-7.45) ABG pO2 (83-108) mmHg ABG HCO3 (21-25) mmol/L ABG Total CO2 (19-24) mmol/L ABG O2 Saturation (94-97) % Sodium 134 L (137-145) mmol/L Potassium 3.1 L (3.5-5.1) mmol/L Creatinine 0.63 L (0.66-1.25) mg/dL Glucose (74-99) mg/dL POC Glucose (mg/dL) (75-99) mg/dL Calcium 6.5 L (8.4-10.2) mg/dL Magnesium 1.5 L (1.6-2.3) mg/dL Alkaline Phosphatase 168 H (38-126) U/L Creatine Kinase 30 L (55-170) U/L Troponin I 0.576 H* (0.000-0.034) ng/mL Total Protein 5.0 L (6.3-8.2) g/dL Albumin 2.2 L (3.5-5.0) g/dL Crossmatch See Detail 08/05/21 08/05/21 08/05/21 Range/Units 01:56 05:54 07:16 RBC 3.23 L (4.30-5.90) m/uL Hgb 8.8 L D (13.0-17.5) gm/dL Hct 28.4 L (39.0-53.0) % RDW 17.2 H (11.5-15.5) % Plt Count 465 H (150-450) k/uL Neutrophils # (1.3-7.7) k/uL Lymphocytes # (1.0-4.8) k/uL ABG pH 7.46 H (7.35-7.45) ABG pO2 (83-108) mmHg ABG HCO3 28 H (21-25) mmol/L ABG Total CO2 29 H (19-24) mmol/L ABG O2 Saturation 97.9 H (94-97) % Sodium (137-145) mmol/L Potassium (3.5-5.1) mmol/L Creatinine (0.66-1.25) mg/dL Glucose (74-99) mg/dL POC Glucose (mg/dL) 167 H (75-99) mg/dL Calcium (8.4-10.2) mg/dL Magnesium (1.6-2.3) mg/dL Alkaline Phosphatase (38-126) U/L Creatine Kinase (55-170) U/L Troponin I (0.000-0.034) ng/mL Total Protein (6.3-8.2) g/dL Albumin (3.5-5.0) g/dL Crossmatch 08/05/21 Range/Units 07:16 RBC (4.30-5.90) m/uL Hgb (13.0-17.5) gm/dL Hct (39.0-53.0) % RDW (11.5-15.5) % Plt Count (150-450) k/uL Neutrophils # (1.3-7.7) k/uL Lymphocytes # (1.0-4.8) k/uL ABG pH (7.35-7.45) ABG pO2 (83-108) mmHg ABG HCO3 (21-25) mmol/L ABG Total CO2 (19-24) mmol/L ABG O2 Saturation (94-97) % Sodium (137-145) mmol/L Potassium (3.5-5.1) mmol/L Creatinine 0.54 L (0.66-1.25) mg/dL Glucose 147 H (74-99) mg/dL POC Glucose (mg/dL) (75-99) mg/dL Calcium 7.6 L (8.4-10.2) mg/dL Magnesium (1.6-2.3) mg/dL Alkaline Phosphatase 188 H (38-126) U/L Creatine Kinase (55-170) U/L Troponin I (0.000-0.034) ng/mL Total Protein 5.8 L (6.3-8.2) g/dL Albumin 2.6 L (3.5-5.0) g/dL Crossmatch Assessment and Plan (1) Pneumonia Current Visit: No Status: Acute Code(s): J18.9 - PNEUMONIA, UNSPECIFIED ORGANISM SNOMED Code(s): 037270688 Plan: 1patient with COPD with extensive eczema and recent diagnosis with extensive histoplasma pneumonia on the basis of positive urine and serum antigen no admit to the hospital with large pneumothorax questionable related to the fall versus to his extensive emphysema in this patient who is status post chest tube placement patient this admission with no fever or elevated white count clinic suspicion low for secondary bacterial pneumonia 2patient to be continued on Sporanox 200 mg 3 times a day and his clinical course will be monitored closely. We will follow on clinical condition and cultures to further adjust medication if needed Thank you for this consultation will follow this patient along with you Time with Patient: Greater than 30
[2021-08-06 04:53] LABS: Anisocytosis Slight; HCT 29.1 % (39.0-53.0); HGB 9.3 gm/dL (13.0-17.5); Hypochromasia Marked; MCH 28.3 pg (25.0-35.0); MCHC 32.1 g/dL (31.0-37.0); MCV 88.4 fL (80.0-100.0); Mean Platelet Volume 8.1; Platelet Count 642 k/uL (150-450); Poikilocytosis Moderate; RBC 3.29 m/uL (4.30-5.90); RDW 17.9 % (11.5-15.5); WBC 12.8 k/uL (3.8-10.6)
[2021-08-06] MEDS: IPRATROPIUM-ALBUTEROL 3 ML NEB INHALATION SCH ×6 (04:58→23:49)
[2021-08-06 05:02] LABS: African American GFR (CKD) >90 (>60 ml/min/1.73 sqM); Anion Gap 9 mmol/L; Blood Urea Nitrogen 19 mg/dL (9-20); Calcium 8.1 mg/dL (8.4-10.2); Carbon Dioxide 23 mmol/L (22-30); Chloride 108 mmol/L (98-107); Glucose 150 mg/dL (74-99); Magnesium 2.5 mg/dL (1.6-2.3); Non-African American GFR(CKD) >90 (>60 ml/min/1.73 sqM); Potassium 3.8 mmol/L (3.5-5.1); Sodium 140 mmol/L (137-145)
[2021-08-06] MEDS: HYDROmorphone 1 MG/ML 1 ML SYRINGE IVP PRN ×2 (05:06→09:37)
[2021-08-06 05:41] LABS: ABG Base Excess 0.6 mmol/L; ABG HCO3 25 mmol/L (21-25); ABG Oxygen Saturation 97.8 % (94-97); ABG PCO2 41 mmHg (35-45); ABG PO2 103 mmHg (83-108); ABG TCO2 27 mmol/L (19-24); Allen Test Performed? Yes
--- NOTE | 2021-08-06 06:02 | XR ---
EXAMINATION TYPE: XR chest 1V portable DATE OF EXAM: 08/06/2021 COMPARISON: 08/05/2021 HISTORY: Check tube placement TECHNIQUE: Single view FINDINGS: Endotracheal tube is 3.5 cm from the jennifer. There is nasogastric tube in the stomach. Ther e is left-sided chest tube with the tip at the left lung apex. No pneumothorax. There is extensive so ft tissue air on the left and right chest extending into the base of the neck. There is patchy airspa ce consolidation in both upper lobes. There is left axillary pacemaker. There are chest leads. IMPRESSION: Tubing in good position. No definite pneumothorax. Upper lobe pulmonary infiltrates without change. IMPRESSION:
--- NOTE | 2021-08-06 07:15 | ECHOF ---
Referral Reason:Abnormal troponin MEASUREMENTS -------- HEIGHT: 165.1 cm WEIGHT: 54.9 kg BP: 118/68 IVSd: 1.0 cm (0.6 - 1.1) LVIDd: 5.5 cm (3.9 - 5.3) LVPWd: 1.0 cm (0.6 - 1.1) IVSs: 1.0 cm LVIDs: 4.5 cm LVPWs: 1.2 cm FINDINGS -------- Sinus rhythm. This was a technically difficult study with suboptimal views. Pt. on a vent. The left ventricular size is normal. Left ventricular wall thickness is normal. There is severe g lobal hypokinesis of LV . Overall left ventricular systolic function is moderate-severely impaired with, an EF between 30 - 35 %. The left atrium was not well visualized. The right atrium was not well visualized. 5.0mg of Lumason was utilized for enhancement of images The aortic valve was not well visualized. The mitral valve was not well visualized. The tricuspid valve was not well visualized. The pulmonic valve was not well visualized. CONCLUSIONS -------- 1. This was a technically difficult study with suboptimal views. 2. There is severe global hypokinesis of LV . 3. Overall left ventricular systolic function is moderate-severely impaired with, an EF between 30 - 35 %. MANAGER CAMP: Mai Villatoro [facility]
[2021-08-06] MEDS: DEXMEDETOMIDINE/0.9% NACL(PMX) 400 MCG in EMPTY BAG 1 BAG IV SCH (09:36)
[2021-08-06] MEDS: PANTOPRAZOLE 40 MG/10 ML VIAL IV SCH ×2 (09:55→22:37)
[2021-08-06] MEDS: ENOXAPARIN 40 MG/0.4 ML SYRINGE SQ SCH (09:55)
[2021-08-06] MEDS: ASPIRIN 81 MG PO SCH (09:55)
[2021-08-06] MEDS: NON FORMULARY DRUG (Buprenorphine Hcl/Naloxone Hcl [Suboxone 8 Mg-2 Mg Sl Film] 1 EACH Fil SUBLINGUAL SCH ×3 (09:55→22:38)
[2021-08-06] MEDS: ITRACONAZOLE 100 MG CAP PO SCH ×3 (09:56→22:38)
[2021-08-06] MEDS: SODIUM CHLORIDE 0.9% 1,000 ML IV SCH (09:57)
--- NOTE | 2021-08-06 10:00 | P.PN ---
Subjective Patient was examined at bedside today family present. All questions were answered to the 2 daughters present at bedside. Patient's oxygen saturation saturations were in the mid 80s I did increase the FiO2 at bedside. Case discussed with RN present at bedside. Objective - Vital Signs Vital signs: Vital Signs Temp 96.6 F L 08/06/21 08:00 Pulse 75 08/06/21 09:30 Resp 22 08/06/21 09:30 BP 93/63 08/06/21 09:30 Pulse Ox 88 L 08/06/21 09:30 Intake & Output 08/05/21 08/06/21 08/06/21 18:59 06:59 18:59 Intake Total 751.550 892.330 126.442 Output Total 1330 515 45 Balance -578.450 377.330 81.442 Weight 55.2 kg Intake: IV 550 50 Sodium Chloride 0.9% 1, 550 50 000 ml @ 50 mls/hr IV . Q20H [facility] Rx#:[id number] Intake, IV Titration 751.550 202.330 66.442 Amount Norepinephrine 4 mg In 21.696 Sodium Chloride 0.9% 250 ml @ 0.05 MCG/KG/MIN 10. 516 mls/hr IV .Q24H [facility] Rx#:[id number] Norepinephrine 4 mg In 101.55 Sodium Chloride 0.9% 250 ml @ 0.05 MCG/KG/MIN 10. 939 mls/hr IV .[id number] [facility] Rx#:[id number] Sodium Chloride 0.9% 1, 550 000 ml @ 50 mls/hr IV . Q20H [facility] Rx#:[id number] propofoL 1,000 mg In 100.000 180.634 66.442 Empty Bag 1 bag @ 5 MCG/ KG/MIN 1.723 mls/hr IV . Q24H [facility] Rx#:[id number] Tube Feeding 80 10 Other 60 Output: Chest Tube Drainage 55 70 Chest Tube Left 55 70 Urine 1275 445 45 Other: Voiding Method Indwelling Catheter Indwelling Catheter ABP, PAP, CO, CI - Last Documented Arterial Blood Pressure 118/59 - Exam Constitutional: Intubated and sedated Neck: Supple, no masses, or JVD, significant subcutaneous emphysema No carotid bruits No thyromegaly Lungs: Severely diminished breath sounds over the left side Increased no to percussion over the left side, significant subcutaneous emphysema throughout the chest Normal respiratory effort, no accessory muscle use Chest tube in place. Cardiovascular: Heart regular in rate and rhythm, No murmurs, gallops, or rubs No peripheral edema Abdominal: Soft Nontender, no guarding, rebound or rigidity Abdomen moving with respiration Normoactive bowel sounds No hepatomegaly, No splenomegaly No palpable mass No abdominal wall hernia noted Skin: Significant subcutaneous emphysema and crepitation over the anterior chest, left-sided pigtail type of chest tube inserted in place Extremities: No digital cyanosis Clubbing toes Pedal pulses intact and symmetrical Radial pulses intact and symmetrical Psychiatric: Patient intubated sedated Neuro unable to perform patient intubated sedated Lymphatics: no palpable cervical or supraclavicular , or inguinal lymph nodes - Labs CBC & Chem 7: 08/06/21 04:35 08/06/21 04:35 Labs: Abnormal Lab Results - Last 24 Hours (Table) 08/05/21 08/05/21 08/05/21 Range/Units 08:37 14:30 17:30 WBC (3.8-10.6) k/uL RBC (4.30-5.90) m/uL Hgb (13.0-17.5) gm/dL Hct (39.0-53.0) % RDW (11.5-15.5) % Plt Count (150-450) k/uL ABG Total CO2 (19-24) mmol/L ABG O2 Saturation (94-97) % Chloride (98-107) mmol/L Glucose (74-99) mg/dL Calcium (8.4-10.2) mg/dL Magnesium (1.6-2.3) mg/dL Troponin I 1.630 H* 1.370 H* (0.000-0.034) ng/mL Procalcitonin 1.69 H (0.02-0.09) ng/mL 08/06/21 08/06/21 08/06/21 Range/Units 04:35 04:35 05:40 WBC 12.8 H (3.8-10.6) k/uL RBC 3.29 L (4.30-5.90) m/uL Hgb 9.3 L (13.0-17.5) gm/dL Hct 29.1 L (39.0-53.0) % RDW 17.9 H (11.5-15.5) % Plt Count 642 H (150-450) k/uL ABG Total CO2 27 H (19-24) mmol/L ABG O2 Saturation 97.8 H (94-97) % Chloride 108 H (98-107) mmol/L Glucose 150 H (74-99) mg/dL Calcium 8.1 L (8.4-10.2) mg/dL Magnesium 2.5 H (1.6-2.3) mg/dL Troponin I (0.000-0.034) ng/mL Procalcitonin (0.02-0.09) ng/mL Microbiology - Last 24 Hours (Table) 08/05/21 21:08 Gram Stain - Preliminary Sputum Sputum Culture - Preliminary Assessment and Plan Assessment: Assessment: #1 acute hypoxic respiratory failure #2 tension pneumothorax left-sided status post chest tube #3 recent history of GI bleed #4 elevated cardiac troponin secondary to ACS versus demand ischemia #5 history of histoplasmosis #6 history of congestive heart failure with ICD in place Plan: -Patient currently admitted to ICU level of care -Aspiration/fall precaution/HOB 30 -Mechanical ventilation as per ICU protocol -Agree with resuming antifungal treatment ID consulted -Currently also consulted obtain 2-D echocardiogram conservative management from their perspective. As a patient not a candidate for any intervention at this time -Case discussed with family present at bedside 2 daughters. -DVT prophylaxis SCDs for now Prognosis unfortunately poor
[2021-08-06] MEDS: NICOTINE 21MG/24HR PATCH TRANSDERM SCH (11:03)
[2021-08-06 11:25] LABS: ABG HCO3 26 mmol/L (21-25); ABG Oxygen Saturation 90.8 % (94-97); ABG PCO2 34 mmHg (35-45); ABG PH 7.48 (7.35-7.45); ABG TCO2 27 mmol/L (19-24)
[2021-08-06 11:28] LABS: ABG PO2 59 mmHg (83-108); Allen Test Performed? no
--- NOTE | 2021-08-06 13:01 | P.PN ---
Subjective Progress Note Date: 08/06/21 On today's evaluation of 08/06/2021, seeing the patient for a follow-up. Noted the patient went into respiratory failure due to a large left-sided pneumothorax. Accordingly, the patient a chest tube inserted yesterday with successful reexpansion of the left lung. Nevertheless, the patient continued to have a significant amount of air leak from the chest tube. This morning, the patient is sedated with propofol. Propofol is running at 50 mcg/kg per minute. The patient is currently on assist control mode a mechanical ventilation with a rate of 22, tidal volume of 450 mL an FiO2 of 60% and a PEEP of 5. The patient's blood culture showed a pH of 7.4 with a pCO2 of 40 and pO2 of 103. Chest x-ray showing some case emphysema in the neck and anterior chest area and the patient has a left-sided chest tube in place without evidence of any pneumothorax. On a mechanical ventilator, the patient is losing approximately 200 mL of air and this is due to a large air leak that being suctioned and the Pleur-evac. Output in terms of fluid is minimal from the left-sided chest tube. The patient remains on a low dose norepinephrine infusion running at 0.04 mcg/kg per minute. The patient is on enteral feeding for nutritional support and the patient is sitting vital high protein at the rate of 10 mL an hour and the goal is at 40. His white cell count is at 12.8 with hemoglobin of 9.3 and a platelet count of 642. BUN is 19 with a creatinine of 0.6 and a sodium level is at 140. Troponin peaked at 1.6 dropped down to 1.3. No other significant events overnight. No other cardiac arrhythmias. Family is at the bedside. The patient remains on Sporanox. The patient continues to have opacity in the upper lobes bilaterally and is a dense areas of consolidations. He remains on Lovenox for prophylaxis 40 mg subcu every 24 hours. He is also on oral aspirin 81 mg by mouth daily. Objective - Vital Signs Vital signs: Vital Signs Temp 97.7 F 08/06/21 12:00 Pulse 108 H 08/06/21 12:00 Resp 28 H 08/06/21 12:00 BP 93/63 08/06/21 09:30 Pulse Ox 87 L 08/06/21 12:00 Intake & Output 08/05/21 08/06/21 08/06/21 18:59 06:59 18:59 Intake Total 751.550 892.330 519.589 Output Total 1330 515 540 Balance -578.450 377.330 -20.411 Weight 55.2 kg Intake: IV 550 240 Sodium Chloride 0.9% 1, 550 240 000 ml @ 50 mls/hr IV . Q20H [facility] Rx#:[id number] Intake, IV Titration 751.550 202.330 199.589 Amount Dexmedetomidine/0.9% NaCl 6.946 (Pmx) 400 mcg In Empty Bag 1 bag @ 0.2 MCG/KG/HR 2.76 mls/hr IV .Q24H [facility] Rx#:[id number] Norepinephrine 4 mg In 21.696 105.01 Sodium Chloride 0.9% 250 ml @ 0.05 MCG/KG/MIN 10. 516 mls/hr IV .Q24H [facility] Rx#:[id number] Norepinephrine 4 mg In 101.55 Sodium Chloride 0.9% 250 ml @ 0.05 MCG/KG/MIN 10. 939 mls/hr IV .[id number] [facility] Rx#:[id number] Sodium Chloride 0.9% 1, 550 000 ml @ 50 mls/hr IV . Q20H [facility] Rx#:[id number] propofoL 1,000 mg In 100.000 180.634 87.633 Empty Bag 1 bag @ 5 MCG/ KG/MIN 1.723 mls/hr IV . Q24H [facility] Rx#:[id number] Tube Feeding 80 50 Other 60 30 Output: Chest Tube Drainage 55 70 30 Chest Tube Left 55 70 30 Urine 1275 445 510 Other: Voiding Method Indwelling Catheter Indwelling Catheter ABP, PAP, CO, CI - Last Documented Arterial Blood Pressure 150/69 - Exam Gen. appearance the patient is sedated with propofol, has a body mass index of 20.3, calm and comfortable and sedated with the mechanical ventilator. He does have some evidence of subcutaneous emphysema over the neck and anterior chest area on inspection. Head exam was generally normal. There was no scleral icterus or corneal arcus. Mucous membranes were moist. Neck was supple and without jugular venous distension, thyromegaly, or carotid bruits. Carotids were easily palpable bilaterally. There was no adenopathy. There is evidence of subcutaneous emphysema over the neck area especially on the right and the patient has a orogastric and orotracheal tube are both in place. Lungs sounds are diminished and the patient has evidence of subcutaneous emphysema over the anterior chest. The patient also has a left-sided chest tube which is a 32-Albanian chest tube with positive air leak. No significant fluid output from the left hemithorax. Scattered rhonchi. No significant wheezing. The patient has significant air leak in the left-sided chest tube. Cardiac exam revealed the PMI to be normally situated and sized. The rhythm was regular and no extrasystoles were noted during several minutes of auscultation. The first and second heart sounds were normal and physiologic splitting of the second heart sound was noted. There were no murmurs, rubs, clicks, or gallops. Patient has an AICD pocket over the left anterior chest area. Abdominal exam revealed normal bowel sounds. The abdomen was soft, non-tender, and without masses, organomegaly, or appreciable enlargement of the abdominal aorta. Examination of the extremities revealed easily palpable radial, femoral and pedal pulses. There was no cyanosis, clubbing or edema. Examination of the skin revealed no evidence of significant rashes, suspicious appearing nevi or other concerning lesions. Neurologically the patient is sedated and the patient is calm and comfortable - Labs CBC & Chem 7: 08/06/21 04:35 08/06/21 04:35 Labs: Abnormal Lab Results - Last 24 Hours (Table) 08/05/21 08/05/21 08/05/21 Range/Units 08:37 14:30 17:30 WBC (3.8-10.6) k/uL RBC (4.30-5.90) m/uL Hgb (13.0-17.5) gm/dL Hct (39.0-53.0) % RDW (11.5-15.5) % Plt Count (150-450) k/uL ABG pH (7.35-7.45) ABG pCO2 (35-45) mmHg ABG pO2 (83-108) mmHg ABG HCO3 (21-25) mmol/L ABG Total CO2 (19-24) mmol/L ABG O2 Saturation (94-97) % Chloride (98-107) mmol/L Glucose (74-99) mg/dL Calcium (8.4-10.2) mg/dL Magnesium (1.6-2.3) mg/dL Troponin I 1.630 H* 1.370 H* (0.000-0.034) ng/mL Procalcitonin 1.69 H (0.02-0.09) ng/mL 08/06/21 08/06/21 08/06/21 Range/Units 04:35 04:35 05:40 WBC 12.8 H (3.8-10.6) k/uL RBC 3.29 L (4.30-5.90) m/uL Hgb 9.3 L (13.0-17.5) gm/dL Hct 29.1 L (39.0-53.0) % RDW 17.9 H (11.5-15.5) % Plt Count 642 H (150-450) k/uL ABG pH (7.35-7.45) ABG pCO2 (35-45) mmHg ABG pO2 (83-108) mmHg ABG HCO3 (21-25) mmol/L ABG Total CO2 27 H (19-24) mmol/L ABG O2 Saturation 97.8 H (94-97) % Chloride 108 H (98-107) mmol/L Glucose 150 H (74-99) mg/dL Calcium 8.1 L (8.4-10.2) mg/dL Magnesium 2.5 H (1.6-2.3) mg/dL Troponin I (0.000-0.034) ng/mL Procalcitonin (0.02-0.09) ng/mL 08/06/21 Range/Units 11:22 WBC (3.8-10.6) k/uL RBC (4.30-5.90) m/uL Hgb (13.0-17.5) gm/dL Hct (39.0-53.0) % RDW (11.5-15.5) % Plt Count (150-450) k/uL ABG pH 7.48 H (7.35-7.45) ABG pCO2 34 L (35-45) mmHg ABG pO2 59 L* (83-108) mmHg ABG HCO3 26 H (21-25) mmol/L ABG Total CO2 27 H (19-24) mmol/L ABG O2 Saturation 90.8 L (94-97) % Chloride (98-107) mmol/L Glucose (74-99) mg/dL Calcium (8.4-10.2) mg/dL Magnesium (1.6-2.3) mg/dL Troponin I (0.000-0.034) ng/mL Procalcitonin (0.02-0.09) ng/mL Microbiology - Last 24 Hours (Table) 08/05/21 21:08 Gram Stain - Preliminary Sputum Sputum Culture - Preliminary Assessment and Plan Plan: 1 acute hypoxic respiratory failure secondary to a large secondary pneumothorax, a complication of bullous emphysema and pneumonia , status post insertion of a large left-sided chest tube, 32-[place]banian, with reexpansion of the left lung without any complications. The patient is showing improvement and acid base status and oxygenation. There is however significant amount of air leak through the left-sided chest tube. 2 large left-sided neck and a pneumothorax, post chest tube insertion and the patient currently is a 32-[place] chest tube in place with adequate expansion of the left lung without any residual pneumothorax. There is persistent air leak o n the Pleur-evac the patient is losing approximately 100 mL of air from the generator to deliver tidal volume by the mechanical ventilator. 3 advanced COPD with bullous changes in the upper lobes bilaterally 4 acute non-ST segment elevation myocardial infarction with secondary hypotension secondary to above, currently on low-dose norepinephrine infusion, continues to be on low-dose pressors. The patient is known to have chronic systolic heart failure with impaired left ventricular ejection fraction. 5 Histoplasma pneumonia with upper lobe predominance. The patient had bilateral upper lobe pneumonia status post recent bronchoscopy with BAL on 06/24/2021, with negative BAL and viral cultures, COVID-19 PCR was negative. Patient is status post repeat bronchoscopy with BAL on 07/07/2021 with transbronchial biopsies of the right middle lobe, brushings and BAL of the right middle lobe, transbronchial biopsies were consistent with organizing pneumonia, BAL cultures negative thus far. Meanwhile, the patient had positive histoplasma antibody titers. Histoplasma serum antigen came back positive. 6 coronary artery disease with previous myocardial infarction 7 history of atrial fibrillation 8 history of pacemaker/SB placement 9 history of CHF with systolic heart failure with an ejection fraction of 3035% 10 history of bilateral inguinal hernia repair 11 history of prescription narcotic abuse currently on Suboxone 12 chronic anxiety Plan Continue ventilator support Stop sedation Assess mentation and weaning parameters The patient is known to have high level of anxiety. Once is off the propofol, may benefit from Precedex. Despite ongoing air leak, the left lung is adequately expanded. I did other give this patient a trial of weaning and extubation today knowing that long-term mechanical ventilation with obviously ultimately major disadvantage as the patient is quite debilitated at baseline. We should be able to possibly extubated this patient if he is able to arouse, show adequate mentation and adequate weaning parameters. As such, I'm cutting of the sedation, using Precedex for anxiety/agitation, we'll give the patient is point is breathing trial if the weaning parameters are adequate in consultation to extubate this patient to a BiPAP or a high flow oxygen. monitor the air leak from the left-sided chest tube Daily chest x-ray Start the patient on bronchodilators Continue itraconazole 200 mg by mouth 3 times a day Wean off pressors Gentle fluid hydration with normal state rate of 50 mL an hour IV Protonix Lovenox for DVT prophylaxis IV Dilaudid for pain control Hold enteral feeding for now and its patient for extubation Condition is critical we'll continue to follow make further recommendations based on his progress. This evaluation was done and more than 30 minutes and the family and the daughters were updated on his condition. Time with Patient: Greater than 30
[2021-08-06] MEDS: NOREPINEPHRINE 4 MG in SODIUM CHLORIDE 0.9% 250 ML IV SCH (16:34)
--- NOTE | 2021-08-06 17:42 | P.PN ---
Subjective Progress Note Date: 08/06/21 This is a 56-year-old gentleman with history of previous myocardial infarction stent placement, and ischemic cardiac myopathy, status post AICD. He was admitted to the hospital with tension pneumothorax and had chest tubes patient was hypotensive requiring pressors. We have seen this patient because of a bnormal troponin values. Patient today is extubated and seemed to be relatively stable. His blood pressure is more stable and is being weaned off the pressors. No arrhythmias are detected. His echo [place] showed an ejection fraction of 30-35%. The LV function is similar to what it was 5 months ago without any significant change. Patient hemoglobin is more stable. The elevation of troponin is most probably is related to anemia and hypoxia and secondary to metabolic issues. At this point I don't see any acute cardiac issues. Continue with current management. We'll follow Objective - Vital Signs Vital signs: Vital Signs Temp 101.2 F H 08/06/21 16:00 Pulse 112 H 08/06/21 16:15 Resp 17 08/06/21 16:15 BP 93/63 08/06/21 15:30 Pulse Ox 93 L 08/06/21 16:15 Intake & Output 08/05/21 08/06/21 08/06/21 18:59 06:59 18:59 Intake Total 751.550 892.330 599.589 Output Total 1330 515 665 Balance -578.450 377.330 -65.411 Weight 55.2 kg 55.2 kg Intake: IV 550 320 Sodium Chloride 0.9% 1, 550 320 000 ml @ 50 mls/hr IV . Q20H [facility] Rx#:[id number] Intake, IV Titration 751.550 202.330 199.589 Amount Dexmedetomidine/0.9% NaCl 6.946 (Pmx) 400 mcg In Empty Bag 1 bag @ 0.2 MCG/KG/HR 2.76 mls/hr IV .Q24H [facility] Rx#:[id number] Norepinephrine 4 mg In 21.696 105.01 Sodium Chloride 0.9% 250 ml @ 0.05 MCG/KG/MIN 10. 516 mls/hr IV .Q24H [facility] Rx#:[id number] Norepinephrine 4 mg In 101.55 Sodium Chloride 0.9% 250 ml @ 0.05 MCG/KG/MIN 10. 939 mls/hr IV .[id number] [facility] Rx#:[id number] Sodium Chloride 0.9% 1, 550 000 ml @ 50 mls/hr IV . Q20H [facility] Rx#:[id number] propofoL 1,000 mg In 100.000 180.634 87.633 Empty Bag 1 bag @ 5 MCG/ KG/MIN 1.723 mls/hr IV . Q24H [facility] Rx#:[id number] Tube Feeding 80 50 Other 60 30 Output: Chest Tube Drainage 55 70 30 Chest Tube Left 55 70 30 Urine 1275 445 635 Other: Voiding Method Indwelling Catheter Indwelling Catheter Indwelling Catheter ABP, PAP, CO, CI - Last Documented Arterial Blood Pressure 114/50 - Exam GENERAL EXAM: Patient is alert and oriented and appears to be mild to moderate distress HEENT: Normocephalic. Normal reaction of pupils, equal size, normal range of extraocular motion. No erythema or exudates in the throat. NECK: No masses, no nuchal rigidity. CHEST: Left-sided chest tube LUNGS: Diminished breath sounds HEART: Distant heart sounds ABDOMEN: No hepatosplenomegaly, normal bowel sounds, no guarding or rigidity. SKIN: No rashes CENTRAL NERVOUS SYSTEM: No focal deficits. EXTREMITIES: [No cyanosis, clubbing or edema.] - Labs CBC & Chem 7: 08/06/21 04:35 08/06/21 04:35 Labs: Abnormal Lab Results - Last 24 Hours (Table) 08/05/21 08/06/21 08/06/21 Range/Units 17:30 04:35 04:35 WBC 12.8 H (3.8-10.6) k/uL RBC 3.29 L (4.30-5.90) m/uL Hgb 9.3 L (13.0-17.5) gm/dL Hct 29.1 L (39.0-53.0) % RDW 17.9 H (11.5-15.5) % Plt Count 642 H (150-450) k/uL ABG pH (7.35-7.45) ABG pCO2 (35-45) mmHg ABG pO2 (83-108) mmHg ABG HCO3 (21-25) mmol/L ABG Total CO2 (19-24) mmol/L ABG O2 Saturation (94-97) % Chloride 108 H (98-107) mmol/L Glucose 150 H (74-99) mg/dL Calcium 8.1 L (8.4-10.2) mg/dL Magnesium 2.5 H (1.6-2.3) mg/dL Troponin I 1.370 H* (0.000-0.034) ng/mL 08/06/21 08/06/21 Range/Units 05:40 11:22 WBC (3.8-10.6) k/uL RBC (4.30-5.90) m/uL Hgb (13.0-17.5) gm/dL Hct (39.0-53.0) % RDW (11.5-15.5) % Plt Count (150-450) k/uL ABG pH 7.48 H (7.35-7.45) ABG pCO2 34 L (35-45) mmHg ABG pO2 59 L* (83-108) mmHg ABG HCO3 26 H (21-25) mmol/L ABG Total CO2 27 H 27 H (19-24) mmol/L ABG O2 Saturation 97.8 H 90.8 L (94-97) % Chloride (98-107) mmol/L Glucose (74-99) mg/dL Calcium (8.4-10.2) mg/dL Magnesium (1.6-2.3) mg/dL Troponin I (0.000-0.034) ng/mL Microbiology - Last 24 Hours (Table) 08/05/21 21:08 Gram Stain - Preliminary Sputum Sputum Culture - Preliminary Assessment and Plan (1) Tension pneumothorax Current Visit: Yes Status: Acute Code(s): J93.0 - SPONTANEOUS TENSION PNEUMOTHORAX SNOMED Code(s): 618610012 (2) CAD (coronary artery disease) Current Visit: Yes Status: Acute Code(s): I25.10 - ATHSCL HEART DISEASE OF [place] CORONARY ARTERY W/O ANG PCTRS SNOMED Code(s): 62507083 (3) Acute respiratory failure Current Visit: Yes Status: Acute Code(s): J96.00 - ACUTE RESPIRATORY FAILURE , UNSP W HYPOXIA OR HYPERCAPNIA SNOMED Code(s): 14742324 (4) COPD (chronic obstructive pulmonary disease) Current Visit: Yes Status: Acute Code(s): J44.9 - CHRONIC OBSTRUCTIVE PULMONARY DISEASE, UNSPECIFIED SNOMED Code(s): 41125632 (5) Cardiomyopathy Current Visit: Yes Status: Acute Code(s): I42.9 - CARDIOMYOPATHY, UNSPECIFIED SNOMED Code(s): 11544955 (6) AICD (automatic cardioverter/defibrillator) present Current Visit: Yes Status: Acute Code(s): Z95.810 - PRESENCE OF AUTOMATIC (IMPLANTABLE) CARDIAC DEFIBRILLATOR SNOMED Code(s): 998881316 (7) Elevated troponin Current Visit: Yes Status: Acute Code(s): R77.8 - OTHER SPECIFIED ABNORMALITIES OF PLASMA PROTEINS SNOMED Code(s): 941869656 Plan: Patient is mainly being treated for tension pneumothorax and pneumonia. Elevation of troponin values are most probably secondary to hypoxia and anemia. LV function is stable compared to the previous studies on the echocardiogram. Continue current medical therapy. We will follow
[2021-08-06 18:06] LABS: Glucose,Whole Blood 115 mg/dL (75-99)
[2021-08-06 21:50] LABS: Glucose,Whole Blood 125 mg/dL (75-99)
[2021-08-06] MEDS: ATORVASTATIN 40 MG TAB PO SCH (22:37)
[2021-08-07] MEDS: IPRATROPIUM-ALBUTEROL 3 ML NEB INHALATION SCH ×5 (03:36→21:03)
[2021-08-07 07:18] LABS: Anisocytosis Slight; HCT 29.1 % (39.0-53.0); Hypochromasia Marked; MCH 27.4 pg (25.0-35.0); MCHC 30.8 g/dL (31.0-37.0); MCV 88.8 fL (80.0-100.0); Mean Platelet Volume 7.9; Platelet Count 497 k/uL (150-450); Poikilocytosis Slight; RBC 3.28 m/uL (4.30-5.90); RDW 17.6 % (11.5-15.5)
[2021-08-07 08:20] LABS: African American GFR (CKD) >90 (>60 ml/min/1.73 sqM); Anion Gap 7 mmol/L; Blood Urea Nitrogen 18 mg/dL (9-20); Carbon Dioxide 27 mmol/L (22-30); Chloride 108 mmol/L (98-107); Glucose 106 mg/dL (74-99); Non-African American GFR(CKD) >90 (>60 ml/min/1.73 sqM); Potassium 3.8 mmol/L (3.5-5.1); Sodium 142 mmol/L (137-145)
--- NOTE | 2021-08-07 08:56 | XR ---
EXAMINATION TYPE: XR chest 1V portable DATE OF EXAM: 08/07/2021 COMPARISON: 08/06/2021 HISTORY: Tube placement TECHNIQUE: Single frontal view of the chest is obtained. FINDINGS: ET and NG tube have been removed. Cardiac device and left-sided chest tube seen with persi stent bilateral areas of consolidation. Right-sided PICC line noted. Diffuse subcutaneous emphysema. No sizable pneumothorax on today's exam. IMPRESSION: 1. Bilateral areas of consolidation or infiltrate stable. Underlying mass right upper lobe not exclud ed. No sizable pneumothorax on today's exam. 2. Stable subcutaneous emphysema
[2021-08-07] MEDS: NON FORMULARY DRUG (Buprenorphine Hcl/Naloxone Hcl [Suboxone 8 Mg-2 Mg Sl Film] 1 EACH Fil SUBLINGUAL SCH ×3 (09:22→20:34)
[2021-08-07] MEDS: ENOXAPARIN 40 MG/0.4 ML SYRINGE SQ SCH (09:23)
[2021-08-07] MEDS: NICOTINE 21MG/24HR PATCH TRANSDERM SCH (09:23)
[2021-08-07] MEDS: ASPIRIN 81 MG PO SCH (09:23)
[2021-08-07] MEDS: PANTOPRAZOLE 40 MG/10 ML VIAL IV SCH ×2 (09:24→20:34)
[2021-08-07] MEDS: ITRACONAZOLE 100 MG CAP PO SCH ×3 (09:24→20:34)
[2021-08-07] MEDS ORDERED: SODIUM CHLORIDE 0.65% NASAL SPRAY 44 ML BTL NASAL PRN (09:31)
[2021-08-07] MEDS: carvediloL 6.25 MG TAB PO SCH ×2 (10:43→17:58)
[2021-08-07 11:54] LABS: Glucose,Whole Blood 106 mg/dL (75-99)
--- NOTE | 2021-08-07 12:20 | P.PN ---
Subjective She was examined at bedside today he has been extubated. All questions were answered at bedside daughter was also there. RN present at bedside removing A- line. Currently on 5-6 L of nasal cannula saturating above 90%. Objective - Vital Signs Vital signs: Vital Signs Temp 98.4 F 08/07/21 09:00 Pulse 88 08/07/21 11:47 Resp 18 08/07/21 11:47 BP 136/83 08/07/21 11:00 Pulse Ox 92 L 08/07/21 11:00 Intake & Output 08/06/21 08/07/21 08/07/21 18:59 06:59 18:59 Intake Total 639.589 440 640.812 Output Total 765 640 350 Balance -125.411 -200 290.812 Weight 55.2 kg Intake: IV 360 240 100 Sodium Chloride 0.9% 1, 360 240 100 000 ml @ 20 mls/hr IV . Q24H [facility] Rx#:[id number] Intake, IV Titration 199.589 60.812 Amount Dexmedetomidine/0.9% NaCl 6.946 60.812 (Pmx) 400 mcg In Empty Bag 1 bag @ 0.2 MCG/KG/HR 2.76 mls/hr IV .Q24H [facility] Rx#:[id number] Norepinephrine 4 mg In 105.01 Sodium Chloride 0.9% 250 ml @ 0.05 MCG/KG/MIN 10. 516 mls/hr IV .Q24H [facility] Rx#:[id number] propofoL 1,000 mg In 87.633 Empty Bag 1 bag @ 5 MCG/ KG/MIN 1.723 mls/hr IV . Q24H [facility] Rx#:[id number] Oral 200 480 Tube Feeding 50 Other 30 Output: Chest Tube Drainage 60 100 Chest Tube Left 60 100 Urine 705 540 350 Other: Voiding Method Indwelling Catheter Indwelling Catheter ABP, PAP, CO, CI - Last Documented Arterial Blood Pressure 109/55 - Exam Constitutional: Awake alert oriented 3 today. Neck: Supple, no masses, or JVD, significant subcutaneous emphysema No carotid bruits No thyromegaly Lungs: Severely diminished breath sounds over the left side Increased no to percussion over the left side, significant subcutaneous emphysema throughout the chest Normal respiratory effort, no accessory muscle use Chest tube in place. Cardiovascular: Heart regular in rate and rhythm, No murmurs, gallops, or rubs No peripheral edema Abdominal: Soft Nontender, no guarding, rebound or rigidity Abdomen moving with respiration Normoactive bowel sounds No hepatomegaly, No splenomegaly No palpable mass No abdominal wall hernia noted Skin: Significant subcutaneous emphysema and crepitation over the anterior chest, left-sided pigtail type of chest tube inserted in place Extremities: No digital cyanosis Clubbing toes Pedal pulses intact and symmetrical Radial pulses intact and symmetrical - Labs CBC & Chem 7: 08/07/21 06:35 08/07/21 06:35 Labs: Abnormal Lab Results - Last 24 Hours (Table) 08/06/21 08/06/21 08/07/21 Range/Units 18:05 21:48 06:35 RBC 3.28 L (4.30-5.90) m/uL Hgb 9.0 L (13.0-17.5) gm/dL Hct 29.1 L (39.0-53.0) % MCHC 30.8 L (31.0-37.0) g/dL RDW 17.6 H (11.5-15.5) % Plt Count 497 H (150-450) k/uL Chloride (98-107) mmol/L Glucose (74-99) mg/dL POC Glucose (mg/dL) 115 H 125 H (75-99) mg/dL Calcium (8.4-10.2) mg/dL 08/07/21 08/07/21 Range/Units 06:35 11:52 RBC (4.30-5.90) m/uL Hgb (13.0-17.5) gm/dL Hct (39.0-53.0) % MCHC (31.0-37.0) g/dL RDW (11.5-15.5) % Plt Count (150-450) k/uL Chloride 108 H (98-107) mmol/L Glucose 106 H (74-99) mg/dL POC Glucose (mg/dL) 106 H (75-99) mg/dL Calcium 8.0 L (8.4-10.2) mg/dL Microbiology - Last 24 Hours (Table) 08/05/21 21:08 Gram Stain - Preliminary Sputum Sputum Culture - Preliminary Assessment and Plan Assessment: Assessment: #1 acute hypoxic respiratory failure #2 tension pneumothorax left-sided status post chest tube #3 recent history of GI bleed #4 elevated cardiac troponin secondary to ACS versus demand ischemia #5 history of histoplasmosis #6 history of congestive heart failure with ICD in place Plan: -Patient currently admitted to ICU level of care -Aspiration/fall precaution/HOB 30 -Patient was extubated yesterday 08/06/21. -Agree with resuming antifungal treatment ID consulted -Currently also consulted obtain 2-D echocardiogram conservative management from their perspective. As a patient not a candidate for any intervention at this time -Case discussed with family present at bedside with daughter. -DVT prophylaxis SCDs for now Prognosis unfortunately poor
--- NOTE | 2021-08-07 13:29 | P.PN ---
Subjective Progress Note Date: 08/07/21 On today's evaluation of 08/06/2021, seeing the patient for a follow-up. Noted the patient went into respiratory failure due to a large left-sided pneumothorax. Accordingly, the patient a chest tube inserted yesterday with successful reexpansion of the left lung. Nevertheless, the patient continued to have a significant amount of air leak from the chest tube. This morning, the patient is sedated with propofol. Propofol is running at 50 mcg/kg per minute. The patient is currently on assist control mode a mechanical ventilation with a rate of 22, tidal volume of 450 mL an FiO2 of 60% and a PEEP of 5. The patient's blood culture showed a pH of 7.4 with a pCO2 of 40 and pO2 of 103. Chest x-ray showing some case emphysema in the neck and anterior chest area and the patient has a left-sided chest tube in place without evidence of any pneumothorax. On a mechanical ventilator, the patient is losing approximately 200 mL of air and this is due to a large air leak that being suctioned and the Pleur-evac. Output in terms of fluid is minimal from the left-sided chest tube. The patient remains on a low dose norepinephrine infusion running at 0.04 mcg/kg per minute. The patient is on enteral feeding for nutritional support and the patient is sitting vital high protein at the rate of 10 mL an hour and the goal is at 40. His white cell count is at 12.8 with hemoglobin of 9.3 and a platelet count of 642. BUN is 19 with a creatinine of 0.6 and a sodium level is at 140. Troponin peaked at 1.6 dropped down to 1.3. No other significant events overnight. No other cardiac arrhythmias. Family is at the bedside. The patient remains on Sporanox. The patient continues to have opacity in the upper lobes bilaterally and is a dense areas of consolidations. He remains on Lovenox for prophylaxis 40 mg subcu every 24 hours. He is also on oral aspirin 81 mg by mouth daily. 08/07/2021, the patient is being seen for a follow-up. The patient was extubated yesterday and this morning he is on 6 L of O2 by nasal cannula. Family is at the bedside. Doing well. Communicating. His Clare status is very borderline and the patient gets short of breath with longer sentences and limited amount of activity. Currently is at bedrest. He continues to have a left-sided chest tube and the patient was having wide-open air leak yesterday and on today's evaluation, the air leak is improved and there is only intermittent air leak that has been noted. Meanwhile, the patient's subcutaneous emphysema is also improved. The chest x-ray from today shows upper lobe consolidation right more than left along with bullous changes in the upper lobes bilaterally. No evidence of any pneumothorax on today's chest x-ray. The patient remains on Precedex at 0.2 mcg/kg per minute and this will be gradually weaned off. The white cell count is at 8 with a hemoglobin of 9 and a platelet count of 497. Sodium is at home 42 with a potassium level of 3.8 and a BUN of 18 with a creatinine of 0.6. He remains on itraconazole 200 mg by mouth 3 times a day. He remains on Xanax and Lunesta basis for anxiety. He is on DuoNeb nebulized treatments around the clock the left sided chest tube is in place. He is off pressors for now. Cardiac rhythm is sinus. Objective - Vital Signs Vital signs: Vital Signs Temp 98.4 F 08/07/21 09:00 Pulse 90 08/07/21 12:00 Resp 12 08/07/21 12:00 BP 136/83 08/07/21 12:00 Pulse Ox 93 L 08/07/21 12:00 Intake & Output 08/06/21 08/07/21 08/07/21 18:59 06:59 18:59 Intake Total 639.589 440 660.812 Output Total 765 640 400 Balance -125.411 -200 260.812 Weight 55.2 kg Intake: IV 360 240 120 Sodium Chloride 0.9% 1, 360 240 120 000 ml @ 20 mls/hr IV . Q24H [facility] Rx#:[id number] Intake, IV Titration 199.589 60.812 Amount Dexmedetomidine/0.9% NaCl 6.946 60.812 (Pmx) 400 mcg In Empty Bag 1 bag @ 0.2 MCG/KG/HR 2.76 mls/hr IV .Q24H [facility] Rx#:[id number] Norepinephrine 4 mg In 105.01 Sodium Chloride 0.9% 250 ml @ 0.05 MCG/KG/MIN 10. 516 mls/hr IV .Q24H [facility] Rx#:[id number] propofoL 1,000 mg In 87.633 Empty Bag 1 bag @ 5 MCG/ KG/MIN 1.723 mls/hr IV . Q24H [facility] Rx#:[id number] Oral 200 480 Tube Feeding 50 Other 30 Output: Chest Tube Drainage 60 100 Chest Tube Left 60 100 Urine 705 540 400 Other: Voiding Method Indwelling Catheter Indwelling Catheter ABP, PAP, CO, CI - Last Documented Arterial Blood Pressure 109/55 - Exam Gen. appearance the patient think cachectic with a body mass index of 20.3 currently on 6 L of O2 by nasal cannula Head exam was generally normal. There was no scleral icterus or corneal arcus. Mucous membranes were moist. Neck was supple and without jugular venous distension, thyromegaly, or carotid bruits. Carotids were easily palpable bilaterally. There was no adenopathy. There is evidence of subcutaneous emphysema over the neck area and this has improved on today's evaluation Lungs sounds are diminished and the patient has evidence of subcutaneous emphysema over the anterior chest. The patient also has a left-sided chest tube which is a 32-Brazilian chest tube with positive air leak. No significant fluid output from the left hemithorax. Scattered rhonchi. No significant wheezing. The patient has intermittent air leak in the left-sided chest tube. Cardiac exam revealed the PMI to be normally situated and sized. The rhythm was regular and no extrasystoles were noted during several minutes of auscultation. The first and second heart sounds were normal and physiologic splitting of the second heart sound was noted. There were no murmurs, rubs, clicks, or gallops. Patient has an AICD pocket over the left anterior chest area. Abdominal exam revealed normal bowel sounds. The abdomen was soft, non-tender, and without masses, organomegaly, or appreciable enlargement of the abdominal aorta. Examination of the extremities revealed easily palpable radial, femoral and pedal pulses. There was no cyanosis, clubbing or edema. Examination of the skin revealed no evidence of significant rashes, suspicious appearing nevi or other concerning lesions. Neurologically the patient awake and alert and following commands and answering questions. Generalized weakness no 4 extremities, no focal neurological deficits. - Labs CBC & Chem 7: 08/07/21 06:35 08/07/21 06:35 Labs: Abnormal Lab Results - Last 24 Hours (Table) 08/06/21 08/06/21 08/07/21 Range/Units 18:05 21:48 06:35 RBC 3.28 L (4.30-5.90) m/uL Hgb 9.0 L (13.0-17.5) gm/dL Hct 29.1 L (39.0-53.0) % MCHC 30.8 L (31.0-37.0) g/dL RDW 17.6 H (11.5-15.5) % Plt Count 497 H (150-450) k/uL Chloride (98-107) mmol/L Glucose (74-99) mg/dL POC Glucose (mg/dL) 115 H 125 H (75-99) mg/dL Calcium (8.4-10.2) mg/dL 08/07/21 08/07/21 Range/Units 06:35 11:52 RBC (4.30-5.90) m/uL Hgb (13.0-17.5) gm/dL Hct (39.0-53.0) % MCHC (31.0-37.0) g/dL RDW (11.5-15.5) % Plt Count (150-450) k/uL Chloride 108 H (98-107) mmol/L Glucose 106 H (74-99) mg/dL POC Glucose (mg/dL) 106 H (75-99) mg/dL Calcium 8.0 L (8.4-10.2) mg/dL Assessment and Plan Plan: 1 acute hypoxic respiratory failure secondary to a large secondary pneumothorax, a complication of bullous emphysema and pneumonia , status post insertion of a large left-sided chest tube, 32-Brazilian, with reexpansion of the left lung without any complications. The patient was extubated on 07/06/2021 and currently is on 6 L of O2 by nasal cannula 2 large left-sided neck and a pneumothorax, post chest tube insertion and the patient currently is a 32-Brazilian chest tube in place with adequate expansion of the left lung without any residual pneumothorax. There was significant wide- open persistent air leak on the Pleur-evac the patient is losing approximately 100 mL of air from the generator to deliver tidal volume by the mechanical ventilator, and air leak continued to occur following his extubation. Nevertheless, this morning, they are leak is much improved is intermittent only. 3 advanced COPD with bullous changes in the upper lobes bilaterally 4 acute non-ST segment elevation myocardial infarction with secondary hypotension secondary to above, currently on low-dose norepinephrine infusion, continues to be on low-dose pressors. The patient is known to have chronic systolic heart failure with impaired left ventricular ejection fraction. 5 Histoplasma pneumonia with upper lobe predominance. The patient had bilateral upper lobe pneumonia status post recent bronchoscopy with BAL on 06/24/2021, with negative BAL and viral cultures, COVID-19 PCR was negative. Patient is status post repeat bronchoscopy with BAL on 07/07/2021 with transbronchial biopsies of the right middle lobe, brushings and BAL of the right middle lobe, transbronchial biopsies were consistent with organizing pneumonia, BAL cultures negative thus far. Meanwhile, the patient had positive histoplasma antibody titers. Histoplasma serum antigen came back positive. 6 coronary artery disease with previous myocardial infarction 7 history of atrial fibrillation 8 history of pacemaker/SB placement 9 history of CHF with systolic heart failure with an ejection fraction of 3035% 10 history of bilateral inguinal hernia repair 11 history of prescription narcotic abuse currently on Suboxone 12 chronic anxiety Plan Keep the patient on O2 at 6 L Wean down the FiO2 as tolerated to maintain saturation above 90% Weaned off the Precedex Start Xanax 0.25 mg on as-needed basis BiPAP if needed monitor the air leak from the left-sided chest tube Daily chest x-rays Continue bronchodilators Continue itraconazole 200 mg by mouth 3 times a day Wean off pressors Gentle fluid hydration with normal state rate of 50 mL an hour IV Protonix Lovenox for DVT prophylaxis IV Dilaudid for pain control Advance diet as tolerated Condition is critical we'll continue to follow make further recommendations based on his progress.
--- NOTE | 2021-08-07 15:57 | P.PN ---
Subjective Progress Note Date: 08/06/21 Principal diagnosis: Pulmonary histoplasmosis Patient is a 56-year-old male with a past medical history significant for advanced COPD extensive emphysema in this patient who was recently diagnosed with extensive pneumonia secondary to pulmonary histoplasmosis on the basis of a positive serum as well as urine and vision and the patient has been treated with Sporanox, presenting back to the hospital with increasing shortness of breath and noticed to have left-sided pneumothorax requiring a chest tube placement. On today's evaluation that is 08/06/2021 the patient is afebrile, the patient has been extubated this morning and is currently breathing comfortably on a n lilli cannula oxygen, denies any worsening left-sided chest pain did have a cough with occasional sputum no vomiting abdominal pain no diarrhea Objective - Vital Signs Vital signs: Vital Signs Temp 97.7 F 08/06/21 12:00 Pulse 107 H 08/06/21 13:30 Resp 16 08/06/21 13:30 BP 93/63 08/06/21 13:15 Pulse Ox 86 L 08/06/21 13:30 Intake & Output 08/05/21 08/06/21 08/06/21 18:59 06:59 18:59 Intake Total 751.550 892.330 539.589 Output Total 1330 515 580 Balance -578.450 377.330 -40.411 Weight 55.2 kg Intake: IV 550 260 Sodium Chloride 0.9% 1, 550 260 000 ml @ 50 mls/hr IV . Q20H [facility] Rx#:[id number] Intake, IV Titration 751.550 202.330 199.589 Amount Dexmedetomidine/0.9% NaCl 6.946 (Pmx) 400 mcg In Empty Bag 1 bag @ 0.2 MCG/KG/HR 2.76 mls/hr IV .Q24H [facility] Rx#:[id number] Norepinephrine 4 mg In 21.696 105.01 Sodium Chloride 0.9% 250 ml @ 0.05 MCG/KG/MIN 10. 516 mls/hr IV .Q24H [facility] Rx#:[id number] Norepinephrine 4 mg In 101.55 Sodium Chloride 0.9% 250 ml @ 0.05 MCG/KG/MIN 10. 939 mls/hr IV .[id number] [facility] Rx#:[id number] Sodium Chloride 0.9% 1, 550 000 ml @ 50 mls/hr IV . Q20H [facility] Rx#:[id number] propofoL 1,000 mg In 100.000 180.634 87.633 Empty Bag 1 bag @ 5 MCG/ KG/MIN 1.723 mls/hr IV . Q24H [facility] Rx#:[id number] Tube Feeding 80 50 Other 60 30 Output: Chest Tube Drainage 55 70 30 Chest Tube Left 55 70 30 Urine 1275 445 550 Other: Voiding Method Indwelling Catheter Indwelling Catheter Indwelling Catheter ABP, PAP, CO, CI - Last Documented Arterial Blood Pressure 129/65 - Exam GENERAL DESCRIPTION: Middle-aged male lying in bed in no distress RESPIRATORY SYSTEM: Unlabored breathing , decreased breath sounds at bases HEART: S1 S2 regular rate and rhythm , ABDOMEN: Soft , no tenderness EXTREMITIES: No edema feet - Labs CBC & Chem 7: 08/07/21 06:35 08/07/21 06:35 Labs: Abnormal Lab Results - Last 24 Hours (Table) 08/05/21 08/05/21 08/05/21 Range/Units 08:37 14:30 17:30 WBC (3.8-10.6) k/uL RBC (4.30-5.90) m/uL Hgb (13.0-17.5) gm/dL Hct (39.0-53.0) % RDW (11.5-15.5) % Plt Count (150-450) k/uL ABG pH (7.35-7.45) ABG pCO2 (35-45) mmHg ABG pO2 (83-108) mmHg ABG HCO3 (21-25) mmol/L ABG Total CO2 (19-24) mmol/L ABG O2 Saturation (94-97) % Chloride (98-107) mmol/L Glucose (74-99) mg/dL Calcium (8.4-10.2) mg/dL Magnesium (1.6-2.3) mg/dL Troponin I 1.630 H* 1.370 H* (0.000-0.034) ng/mL Procalcitonin 1.69 H (0.02-0.09) ng/mL 08/06/21 08/06/21 08/06/21 Range/Units 04:35 04:35 05:40 WBC 12.8 H (3.8-10.6) k/uL RBC 3.29 L (4.30-5.90) m/uL Hgb 9.3 L (13.0-17.5) gm/dL Hct 29.1 L (39.0-53.0) % RDW 17.9 H (11.5-15.5) % Plt Count 642 H (150-450) k/uL ABG pH (7.35-7.45) ABG pCO2 (35-45) mmHg ABG pO2 (83-108) mmHg ABG HCO3 (21-25) mmol/L ABG Total CO2 27 H (19-24) mmol/L ABG O2 Saturation 97.8 H (94-97) % Chloride 108 H (98-107) mmol/L Glucose 150 H (74-99) mg/dL Calcium 8.1 L (8.4-10.2) mg/dL Magnesium 2.5 H (1.6-2.3) mg/dL Troponin I (0.000-0.034) ng/mL Procalcitonin (0.02-0.09) ng/mL 08/06/21 Range/Units 11:22 WBC (3.8-10.6) k/uL RBC (4.30-5.90) m/uL Hgb (13.0-17.5) gm/dL Hct (39.0-53.0) % RDW (11.5-15.5) % Plt Count (150-450) k/uL ABG pH 7.48 H (7.35-7.45) ABG pCO2 34 L (35-45) mmHg ABG pO2 59 L* (83-108) mmHg ABG HCO3 26 H (21-25) mmol/L ABG Total CO2 27 H (19-24) mmol/L ABG O2 Saturation 90.8 L (94-97) % Chloride (98-107) mmol/L Glucose (74-99) mg/dL Calcium (8.4-10.2) mg/dL Magnesium (1.6-2.3) mg/dL Troponin I (0.000-0.034) ng/mL Procalcitonin (0.02-0.09) ng/mL Microbiology - Last 24 Hours (Table) 08/05/21 21:08 Gram Stain - Preliminary Sputum Sputum Culture - Preliminary Assessment and Plan (1) Pneumonia Current Visit: No Status: Acute Code(s): J18.9 - PNEUMONIA, UNSPECIFIED ORGANISM SNOMED Code(s): 230025998 Plan: 1patient with COPD with extensive eczema and recent diagnosis with extensive histoplasma pneumonia on the basis of positive urine and serum antigen no admit to the hospital with large pneumothorax questionable related to the fall versus to his extensive emphysema in this patient who is status post chest tube placement patient this admission with no fever or elevated white count clinic suspicion low for secondary bacterial pneumonia 2patient is currently being treated Sporanox 200 mg 3 times a day and his clinical course will be monitored closely. Time with Patient: Less than 30
--- NOTE | 2021-08-07 15:59 | P.PN ---
Subjective Progress Note Date: 08/07/21 Principal diagnosis: Pulmonary histoplasmosis Patient is a 56-year-old male with a past medical history significant for advanced COPD extensive emphysema in this patient who was recently diagnosed with extensive pneumonia secondary to pulmonary histoplasmosis on the basis of a positive serum as well as urine and vision and the patient has been treated with Sporanox, presenting back to the hospital with increasing shortness of breath and noticed to have left-sided pneumothorax requiring a chest tube placement. On today's evaluation that is 08/07/2021 the patient did spike a fever of 101F last evening however the patient is afebrile since then, the patient is abigail athing comfortably on a nasal cannula oxygen, complaining of some dryness to the nose from the nasal cannula oxygen, the patient denies any worsening left-sided chest pain did have a cough with occasional sputum no vomiting abdominal pain no diarrhea Objective - Vital Signs Vital signs: Vital Signs Temp 98.4 F 08/07/21 09:00 Pulse 90 08/07/21 12:00 Resp 12 08/07/21 12:00 BP 136/83 08/07/21 12:00 Pulse Ox 93 L 08/07/21 12:00 Intake & Output 08/06/21 08/07/21 08/07/21 18:59 06:59 18:59 Intake Total 639.589 440 660.812 Output Total 765 640 400 Balance -125.411 -200 260.812 Weight 55.2 kg Intake: IV 360 240 120 Sodium Chloride 0.9% 1, 360 240 120 000 ml @ 20 mls/hr IV . Q24H [facility] Rx#:[id number] Intake, IV Titration 199.589 60.812 Amount Dexmedetomidine/0.9% NaCl 6.946 60.812 (Pmx) 400 mcg In Empty Bag 1 bag @ 0.2 MCG/KG/HR 2.76 mls/hr IV .Q24H [facility] Rx#:[id number] Norepinephrine 4 mg In 105.01 Sodium Chloride 0.9% 250 ml @ 0.05 MCG/KG/MIN 10. 516 mls/hr IV .Q24H [facility] Rx#:[id number] propofoL 1,000 mg In 87.633 Empty Bag 1 bag @ 5 MCG/ KG/MIN 1.723 mls/hr IV . Q24H [facility] Rx#:[id number] Oral 200 480 Tube Feeding 50 Other 30 Output: Chest Tube Drainage 60 100 Chest Tube Left 60 100 Urine 705 540 400 Other: Voiding Method Indwelling Catheter Indwelling Catheter ABP, PAP, CO, CI - Last Documented Arterial Blood Pressure 109/55 - Exam GENERAL DESCRIPTION: Middle-aged male lying in bed in no distress RESPIRATORY SYSTEM: Unlabored breathing , decreased breath sounds at bases HEART: S1 S2 regular rate and rhythm , ABDOMEN: Soft , no tenderness EXTREMITIES: No edema feet - Labs CBC & Chem 7: 08/07/21 06:35 08/07/21 06:35 Labs: Abnormal Lab Results - Last 24 Hours (Table) 08/06/21 08/06/21 08/07/21 Range/Units 18:05 21:48 06:35 RBC 3.28 L (4.30-5.90) m/uL Hgb 9.0 L (13.0-17.5) gm/dL Hct 29.1 L (39.0-53.0) % MCHC 30.8 L (31.0-37.0) g/dL RDW 17.6 H (11.5-15.5) % Plt Count 497 H (150-450) k/uL Chloride (98-107) mmol/L Glucose (74-99) mg/dL POC Glucose (mg/dL) 115 H 125 H (75-99) mg/dL Calcium (8.4-10.2) mg/dL 08/07/21 08/07/21 Range/Units 06:35 11:52 RBC (4.30-5.90) m/uL Hgb (13.0-17.5) gm/dL Hct (39.0-53.0) % MCHC (31.0-37.0) g/dL RDW (11.5-15.5) % Plt Count (150-450) k/uL Chloride 108 H (98-107) mmol/L Glucose 106 H (74-99) mg/dL POC Glucose (mg/dL) 106 H (75-99) mg/dL Calcium 8.0 L (8.4-10.2) mg/dL Assessment and Plan (1) Pneumonia Current Visit: No Status: Acute Code(s): J18.9 - PNEUMONIA, UNSPECIFIED ORGANISM SNOMED Code(s): 126961820 Plan: 1patient with COPD with extensive eczema and recent diagnosis with extensive histoplasma pneumonia on the basis of positive urine and serum antigen no admit to the hospital with large pneumothorax questionable related to the fall versus to his extensive emphysema in this patient who is status post chest tube placement patient this admission , the patient did have a fever last evening however no fever since then and cultures so far negative 2patient to continue with Sporanox 200 mg 3 times a day and his clinical course will be monitored closely. Time with Patient: Less than 30
[2021-08-07] MEDS ORDERED: ALPRAZolam 0.25 MG TAB PO PRN (16:00)
[2021-08-07] MEDS: DEXMEDETOMIDINE/0.9% NACL(PMX) 400 MCG in EMPTY BAG 1 BAG IV SCH (16:15)
[2021-08-07 18:08] LABS: Glucose,Whole Blood 138 mg/dL (75-99)
[2021-08-07] MEDS: SODIUM CHLORIDE 0.9% 1,000 ML IV SCH (20:07)
[2021-08-07] MEDS: OXYMETAZOLINE 0.05% NASL SPRAY 1 SPRAY BOTTLE NASAL SCH (20:33)
[2021-08-07] MEDS: ATORVASTATIN 40 MG TAB PO SCH (20:34)
[2021-08-08] MEDS: IPRATROPIUM-ALBUTEROL 3 ML NEB INHALATION SCH ×3 (00:49→07:33)
[2021-08-08] MEDS: SODIUM CHLORIDE 0.9% 1,000 ML IV SCH (03:06)
[2021-08-08] MEDS: HYDROmorphone 1 MG/ML 1 ML SYRINGE IVP PRN ×2 (05:36→21:20)
[2021-08-08] MEDS: DEXMEDETOMIDINE/0.9% NACL(PMX) 400 MCG in EMPTY BAG 1 BAG IV SCH (06:25)
[2021-08-08] MEDS: carvediloL 6.25 MG TAB PO SCH ×2 (06:36→17:00)
--- NOTE | 2021-08-08 06:52 | XR ---
EXAMINATION TYPE: XR chest 1V portable DATE OF EXAM: 08/08/2021 5:32 AM COMPARISON:Chest radiograph from one day prior. Chest 07/02/2021. TECHNIQUE: XR chest 1V portable Frontal view of the chest. CLINICAL INDICATION:Male, 56 years old with history of chest tube; FINDINGS: Lungs/Pleura: Similar multifocal airspace opacities most pronounced in the lung apices and right grea ter than left.. Increased interstitial lung markings are again seen and not significantly changed. No evidence of pneumothorax or pleural effusion. Pulmonary vascularity: Unremarkable. Heart/mediastinum: Cardiomediastinal silhouette is unremarkable. Single-lead cardiac conduction devic e overlying the left hemithorax with lead projecting over the right ventricle. Musculoskeletal: No acute osseous pathology. Other findings: None Lines/Tubes: Right-sided PICC line with distal tip at the cavoatrial junction. Left thoracotomy tube is present without evidence of pneumothorax. IMPRESSION: 1. Unchanged scattered airspace opacities most pronounced in the lung apices. General appearance is similar to CT scan 07/01/2021. 2. Left thoracotomy tube without definitive pneumothorax.
[2021-08-08 07:12] LABS: ALT 23 U/L (4-49); AST 21 U/L (17-59); African American GFR (CKD) >90 (>60 ml/min/1.73 sqM); Albumin 2.4 g/dL (3.5-5.0); Alkaline Phosphatase 112 U/L (38-126); Anion Gap 3 mmol/L; Blood Urea Nitrogen 16 mg/dL (9-20); Carbon Dioxide 31 mmol/L (22-30); Chloride 105 mmol/L (98-107); Glucose 104 mg/dL (74-99); Non-African American GFR(CKD) >90 (>60 ml/min/1.73 sqM); Potassium 3.7 mmol/L (3.5-5.1); Sodium 139 mmol/L (137-145); Total Bilirubin 0.6 mg/dL (0.2-1.3); Total Protein 5.6 g/dL (6.3-8.2)
[2021-08-08] MEDS ORDERED: Potassium Replacement Protocol 1 EACH MISC MISCELLANE PRN (07:15)
[2021-08-08 07:23] LABS: Anisocytosis Slight; Basophils % (A) 0 %; Eosinophils # (A) 0.3 k/uL (0-0.7); Eosinophils % (A) 5 %; HCT 29.3 % (39.0-53.0); Hypochromasia Marked; Lymphocytes # (A) 1.3 k/uL (1.0-4.8); Lymphocytes % (A) 22 %; MCH 27.3 pg (25.0-35.0); MCHC 30.8 g/dL (31.0-37.0); MCV 88.6 fL (80.0-100.0); Mean Platelet Volume 7.1; Monocytes # (A) 0.3 k/uL (0-1.0); Monocytes % (A) 6 %; Neutrophils # (A) 3.8 k/uL (1.3-7.7); Neutrophils % (A) 65 %; Platelet Count 471 k/uL (150-450); Poikilocytosis Slight; RBC 3.31 m/uL (4.30-5.90); RDW 17.6 % (11.5-15.5); WBC 5.8 k/uL (3.8-10.6)
[2021-08-08] MEDS ORDERED: POTASSIUM CHLORIDE ER 20 MEQ TAB.ER PO SCH (08:00)
[2021-08-08] MEDS ORDERED: FUROSEMIDE 10 MG/ML 4 ML VIAL IV STA (09:29)
[2021-08-08] MEDS: NICOTINE 21MG/24HR PATCH TRANSDERM SCH (09:32)
[2021-08-08] MEDS: ASPIRIN 81 MG PO SCH (09:32)
[2021-08-08] MEDS: ENOXAPARIN 40 MG/0.4 ML SYRINGE SQ SCH (09:33)
[2021-08-08] MEDS: PANTOPRAZOLE 40 MG/10 ML VIAL IV SCH ×2 (09:33→21:07)
[2021-08-08] MEDS: TRELEGY INHALATION SCH (09:34)
[2021-08-08] MEDS: ITRACONAZOLE 100 MG CAP PO SCH ×3 (09:34→21:07)
[2021-08-08] MEDS: OXYMETAZOLINE 0.05% NASL SPRAY 1 SPRAY BOTTLE NASAL SCH ×2 (09:35→21:08)
[2021-08-08] MEDS: ALPRAZolam 0.25 MG TAB PO PRN ×2 (09:39→21:20)
[2021-08-08] MEDS: NON FORMULARY DRUG (Buprenorphine Hcl/Naloxone Hcl [Suboxone 8 Mg-2 Mg Sl Film] 1 EACH Fil SUBLINGUAL SCH ×3 (10:27→21:08)
[2021-08-08] MEDS: IPRATROPIUM-ALBUTEROL 3 ML NEB INHALATION PRN ×3 (11:41→20:16)
[2021-08-08 11:48] LABS: Glucose,Whole Blood 144 mg/dL (75-99)
--- NOTE | 2021-08-08 12:06 | P.PN ---
Subjective Progress Note Date: 08/08/21 On today's evaluation of 08/06/2021, seeing the patient for a follow-up. Noted the patient went into respiratory failure due to a large left-sided pneumothorax. Accordingly, the patient a chest tube inserted yesterday with successful reexpansion of the left lung. Nevertheless, the patient continued to have a significant amount of air leak from the chest tube. This morning, the patient is sedated with propofol. Propofol is running at 50 mcg/kg per minute. The patient is currently on assist control mode a mechanical ventilation with a rate of 22, tidal volume of 450 mL an FiO2 of 60% and a PEEP of 5. The patient's blood culture showed a pH of 7.4 with a pCO2 of 40 and pO2 of 103. Chest x-ray showing some case emphysema in the neck and anterior chest area and the patient has a left-sided chest tube in place without evidence of any pneumothorax. On a mechanical ventilator, the patient is losing approximately 200 mL of air and this is due to a large air leak that being suctioned and the Pleur-evac. Output in terms of fluid is minimal from the left-sided chest tube. The patient remains on a low dose norepinephrine infusion running at 0.04 mcg/kg per minute. The patient is on enteral feeding for nutritional support and the patient is sitting vital high protein at the rate of 10 mL an hour and the goal is at 40. His white cell count is at 12.8 with hemoglobin of 9.3 and a platelet count of 642. BUN is 19 with a creatinine of 0.6 and a sodium level is at 140. Troponin peaked at 1.6 dropped down to 1.3. No other significant events overnight. No other cardiac arrhythmias. Family is at the bedside. The patient remains on Sporanox. The patient continues to have opacity in the upper lobes bilaterally and is a dense areas of consolidations. He remains on Lovenox for prophylaxis 40 mg subcu every 24 hours. He is also on oral aspirin 81 mg by mouth daily. 08/07/2021, the patient is being seen for a follow-up. The patient was extubated yesterday and this morning he is on 6 L of O2 by nasal cannula. Family is at the bedside. Doing well. Communicating. His Clare status is very borderline and the patient gets short of breath with longer sentences and limited amount of activity. Currently is at bedrest. He continues to have a left-sided chest tube and the patient was having wide-open air leak yesterday and on today's evaluation, the air leak is improved and there is only intermittent air leak that has been noted. Meanwhile, the patient's subcutaneous emphysema is also improved. The chest x-ray from today shows upper lobe consolidation right more than left along with bullous changes in the upper lobes bilaterally. No evidence of any pneumothorax on today's chest x-ray. The patient remains on Precedex at 0.2 mcg/kg per minute and this will be gradually weaned off. The white cell count is at 8 with a hemoglobin of 9 and a platelet count of 497. Sodium is at home 42 with a potassium level of 3.8 and a BUN of 18 with a creatinine of 0.6. He remains on itraconazole 200 mg by mouth 3 times a day. He remains on Xanax and Lunesta basis for anxiety. He is on DuoNeb nebulized treatments around the clock the left sided chest tube is in place. He is off pressors for now. Cardiac rhythm is sinus. 08/08/2021, the patient is doing well in no specific complaints. He is currently on 6 L of O2 by nasal cannula. The chest x-ray from today is unchanged and the patient has improvement in the subcutaneous emphysema there is no evidence of any pneumothorax. Consolidation are seen in the upper lobes bilaterally right more than left. The patient continues to be monitored closely in the intensive care unit. He was given Afrin for some nasal congestion and postnasal drainage. He is currently off Precedex. His anxiety level is improved and the patient will be given Xanax 0.25 g 3 times a day on an as- needed basis. The chest tube is in place. The air leak is absent today. Based on that, made recommendations to put the chest tube to waterseal. No nausea. No vomiting. Tolerating diet. Complicated with his family. The white cell count of 5.8 with a hemoglobin of 9 and a platelet count of 471. BUN is at 60 with a creatinine of 0.55. Sodium level is at 139. He remains on itraconazole. Cardiac rhythm is sinus. He is on no pressors for now. Objective - Vital Signs Vital signs: Vital Signs Temp 97.9 F 08/08/21 09:00 Pulse 92 08/08/21 11:56 Resp 20 08/08/21 11:00 BP 125/83 08/08/21 11:00 Pulse Ox 93 L 08/08/21 11:00 Intake & Output 08/07/21 08/08/21 08/08/21 18:59 06:59 18:59 Intake Total 1287.068 440 100 Output Total 475 097 5652 Balance 517.068 -340 -1870 Weight 55.2 kg 55.1 kg Intake: IV 240 240 100 Sodium Chloride 0.9% 1, 240 240 100 000 ml @ 20 mls/hr IV . Q24H [facility] Rx#:[id number] Intake, IV Titration 67.068 Amount Dexmedetomidine/0.9% NaCl 67.068 (Pmx) 400 mcg In Empty Bag 1 bag @ 0.2 MCG/KG/HR 2.76 mls/hr IV .Q24H [facility] Rx#:[id number] Oral 980 200 Output: Chest Tube Drainage 20 Chest Tube Left 20 Urine 849 033 2224 Other: Voiding Method Indwelling Catheter Indwelling Catheter ABP, PAP, CO, CI - Last Documented Arterial Blood Pressure 109/55 - Exam Gen. appearance the patient think cachectic with a body mass index of 20.3 currently on 6 L of O2 by nasal cannula Head exam was generally normal. There was no scleral icterus or corneal arcus. Mucous membranes were moist. Neck was supple and without jugular venous distension, thyromegaly, or carotid bruits. Carotids were easily palpable bilaterally. There was no adenopathy. There is evidence of subcutaneous emphysema over the neck area and this has improved on today's evaluation Lungs sounds are diminished and the patient has evidence of subcutaneous emphysema over the anterior chest. The patient also has a left-sided chest tube which is a 32-[place] chest tube with positive air leak. No significant fluid output from the left hemithorax. Scattered rhonchi. No significant wheezing. The patient has no air leak in the left-sided chest tube. Cardiac exam revealed the PMI to be normally situated and sized. The rhythm was regular and no extrasystoles were noted during several minutes of auscultation. The first and second heart sounds were normal and physiologic splitting of the second heart sound was noted. There were no murmurs, rubs, clicks, or gallops. Patient has an AICD pocket over the left anterior chest area. Abdominal exam revealed normal bowel sounds. The abdomen was soft, non-tender, and without masses, organomegaly, or appreciable enlargement of the abdominal aorta. Examination of the extremities revealed easily palpable radial, femoral and pedal pulses. There was no cyanosis, clubbing or edema. Examination of the skin revealed no evidence of significant rashes, suspicious appearing nevi or other concerning lesions. Neurologically the patient awake and alert and following commands and answering questions. Generalized weakness no 4 extremities, no focal neurological d eficits. - Labs CBC & Chem 7: 08/08/21 05:39 08/08/21 05:39 Labs: Abnormal Lab Results - Last 24 Hours (Table) 08/07/21 08/08/21 08/08/21 Range/Units 18:06 05:39 05:39 RBC 3.31 L (4.30-5.90) m/uL Hgb 9.0 L (13.0-17.5) gm/dL Hct 29.3 L (39.0-53.0) % MCHC 30.8 L (31.0-37.0) g/dL RDW 17.6 H (11.5-15.5) % Plt Count 471 H (150-450) k/uL Carbon Dioxide 31 H (22-30) mmol/L Creatinine 0.55 L (0.66-1.25) mg/dL Glucose 104 H (74-99) mg/dL POC Glucose (mg/dL) 138 H (75-99) mg/dL Calcium 8.0 L (8.4-10.2) mg/dL Total Protein 5.6 L (6.3-8.2) g/dL Albumin 2.4 L (3.5-5.0) g/dL 08/08/21 Range/Units 11:46 RBC (4.30-5.90) m/uL Hgb (13.0-17.5) gm/dL Hct (39.0-53.0) % MCHC (31.0-37.0) g/dL RDW (11.5-15.5) % Plt Count (150-450) k/uL Carbon Dioxide (22-30) mmol/L Creatinine (0.66-1.25) mg/dL Glucose (74-99) mg/dL POC Glucose (mg/dL) 144 H (75-99) mg/dL Calcium (8.4-10.2) mg/dL Total Protein (6.3-8.2) g/dL Albumin (3.5-5.0) g/dL Microbiology - Last 24 Hours (Table) 08/05/21 21:08 Gram Stain - Final Sputum Sputum Culture - Final Assessment and Plan Plan: 1 acute hypoxic respiratory failure secondary to a large secondary pneumothorax, a complication of bullous emphysema and pneumonia , status post insertion of a large left-sided chest tube, 32-[place], with reexpansion of the left lung without any complications. The patient was extubated on 07/06/2021 and currently is on 6 L of O2 by nasal cannula 2 large left-sided neck and a pneumothorax, post chest tube insertion and the p atient currently is a 32-[place] chest tube in place with adequate expansion of the left lung without any residual pneumothorax. There was significant wide- open persistent air leak on the Pleur-evac the patient is losing approximately 100 mL of air from the generator to deliver tidal volume by the mechanical ventilator, and air leak continued to occur following his extubation. Nevertheless, this morning, the chest x-ray showing evidence of pneumothorax and there is no evidence of any air leak on today's evaluation in the Pleur-evac. 3 advanced COPD with bullous changes in the upper lobes bilaterally 4 acute non-ST segment elevation myocardial infarction with secondary hypotension secondary to above, currently the patient is off pressors.. The patient is known to have chronic systolic heart failure with impaired left ventricular ejection fraction. 5 Histoplasma pneumonia with upper lobe predominance. The patient had bilateral upper lobe pneumonia status post recent bronchoscopy with BAL on 06/24/2021, with negative BAL and viral cultures, COVID-19 PCR was negative. Patient is s tatus post repeat bronchoscopy with BAL on 07/07/2021 with transbronchial biopsies of the right middle lobe, brushings and BAL of the right middle lobe, transbronchial biopsies were consistent with organizing pneumonia, BAL cultures negative thus far. Meanwhile, the patient had positive histoplasma antibody titers. Histoplasma serum antigen came back positive. 6 coronary artery disease with previous myocardial infarction 7 history of atrial fibrillation 8 history of pacemaker/SB placement 9 history of CHF with systolic heart failure with an ejection fraction of 3035% 10 history of bilateral inguinal hernia repair 11 history of prescription narcotic abuse currently on Suboxone 12 chronic anxiety Plan Keep the patient on O2 at 6 L Wean down the FiO2 as tolerated to maintain saturation above 90% Precedex was discontinued Start Xanax 0.25 mg on as-needed basis, increase the dose up to 4 times a day as needed BiPAP if needed monitor the air leak from the left-sided chest tube, no air leaks for now and the patient will be placed on waterseal Daily chest x-rays Continue bronchodilators Continue itraconazole 200 mg by mouth 3 times a day Gentle fluid hydration with normal state rate of 50 mL an hour IV Protonix Lovenox for DVT prophylaxis IV Dilaudid for pain control Advance diet as tolerated Condition is critical we'll continue to follow make further recommendations based on his progress.
--- NOTE | 2021-08-08 15:39 | P.PN ---
Subjective Progress Note Date: 08/08/21 Principal diagnosis: Pulmonary histoplasmosis Patient is a 56-year-old male with a past medical history significant for advanced COPD extensive emphysema in this patient who was recently diagnosed with extensive pneumonia secondary to pulmonary histoplasmosis on the basis of a positive serum as well as urine and vision and the patient has been treated with Sporanox, presenting back to the hospital with increasing shortness of breath and noticed to have left-sided pneumothorax requiring a chest tube placement. On today's evaluation that is 08/08/2021 the patient is afebrile for more than 24 hours now, the patient is breathing comfortably on a 5 L nasal cannula ox ygen, the patient denies any worsening left-sided chest pain did have a cough with occasional sputum no vomiting abdominal pain no diarrhea Objective - Vital Signs Vital signs: Vital Signs Temp 98.2 F 08/08/21 12:00 Pulse 96 08/08/21 14:00 Resp 19 08/08/21 14:00 BP 102/79 08/08/21 14:00 Pulse Ox 90 L 08/08/21 14:00 Intake & Output 08/07/21 08/08/21 08/08/21 18:59 06:59 18:59 Intake Total 1287.068 440 160 Output Total 874 810 9704 Balance 517.650 -340 2220 Weight 55.2 kg 55.1 kg Intake: IV 240 240 160 Sodium Chloride 0.9% 1, 240 240 160 000 ml @ 20 mls/hr IV . Q24H [facility] Rx#:[id number] Intake, IV Titration 67.068 Amount Dexmedetomidine/0.9% NaCl 67.068 (Pmx) 400 mcg In Empty Bag 1 bag @ 0.2 MCG/KG/HR 2.76 mls/hr IV .Q24H [facility] Rx#:[id number] Oral 980 200 Output: Chest Tube Drainage 20 Chest Tube Left 20 Urine 440 954 9499 Other: Voiding Method Indwelling Catheter Indwelling Catheter ABP, PAP, CO, CI - Last Documented Arterial Blood Pressure 109/55 - Exam GENERAL DESCRIPTION: Middle-aged male lying in bed in no distress RESPIRATORY SYSTEM: Unlabored breathing , decreased breath sounds at bases HEART: S1 S2 regular rate and rhythm , ABDOMEN: Soft , no tenderness EXTREMITIES: No edema feet - Labs CBC & Chem 7: 08/08/21 05:39 08/08/21 05:39 Labs: Abnormal Lab Results - Last 24 Hours (Table) 08/07/21 08/08/21 08/08/21 Range/Units 18:06 05:39 05:39 RBC 3.31 L (4.30-5.90) m/uL Hgb 9.0 L (13.0-17.5) gm/dL Hct 29.3 L (39.0-53.0) % MCHC 30.8 L (31.0-37.0) g/dL RDW 17.6 H (11.5-15.5) % Plt Count 471 H (150-450) k/uL Carbon Dioxide 31 H (22-30) mmol/L Creatinine 0.55 L (0.66-1.25) mg/dL Glucose 104 H (74-99) mg/dL POC Glucose (mg/dL) 138 H (75-99) mg/dL Calcium 8.0 L (8.4-10.2) mg/dL Total Protein 5.6 L (6.3-8.2) g/dL Albumin 2.4 L (3.5-5.0) g/dL 08/08/21 Range/Units 11:46 RBC (4.30-5.90) m/uL Hgb (13.0-17.5) gm/dL Hct (39.0-53.0) % MCHC (31.0-37.0) g/dL RDW (11.5-15.5) % Plt Count (150-450) k/uL Carbon Dioxide (22-30) mmol/L Creatinine (0.66-1.25) mg/dL Glucose (74-99) mg/dL POC Glucose (mg/dL) 144 H (75-99) mg/dL Calcium (8.4-10.2) mg/dL Total Protein (6.3-8.2) g/dL Albumin (3.5-5.0) g/dL Microbiology - Last 24 Hours (Table) 08/05/21 21:08 Gram Stain - Final Sputum Sputum Culture - Final Assessment and Plan (1) Pneumonia Current Visit: No Status: Acute Code(s): J18.9 - PNEUMONIA, UNSPECIFIED ORGANISM SNOMED Code(s): 167260859 Plan: 1patient with COPD with extensive eczema and recent diagnosis with extensive histoplasma pneumonia on the basis of positive urine and serum antigen no admit to the hospital with large pneumothorax questionable related to the fall versus to his extensive emphysema in this patient who is status post chest tube placement patient this admission , the patient did have a fever last evening however no fever since then and cultures remains to be negative 2patient is currently being treated with Sporanox 200 mg 3 times a day and monitor his clinical course closely. The family at the bedside questions were answered Time with Patient: Less than 30
--- NOTE | 2021-08-08 18:25 | P.PN ---
Subjective Progress Note Date: 08/08/21 Patient was seen and examined. No acute events overnight. He is currently on 5 L nasal cannula maintaining O2 saturation greater than 90%. He reports slight improvement in his breathing. Precedex has been discontinued. Chest tube currently to water seal. CBC shows hemoglobin of 9 with MCV of 88.6 along with platelet count of 471. BMP shows a bicarb of 31, creatinine of 0.55, glucose of 104 and calcium of 8 with albumin of 2.4. Objective - Vital Signs Vital signs: Vital Signs Temp 98.8 F 08/08/21 16:00 Pulse 102 H 08/08/21 18:00 Resp 25 H 08/08/21 18:00 BP 133/91 08/08/21 18:00 Pulse Ox 91 L 08/08/21 18:00 Intake & Output 08/07/21 08/08/21 08/08/21 18:59 06:59 18:59 Intake Total 1287.068 440 220 Output Total 010 909 2092 Balance 517.529 -480 -4330 Weight 55.2 kg 55.1 kg Intake: IV 240 240 220 Sodium Chloride 0.9% 1, 240 240 220 000 ml @ 20 mls/hr IV . Q24H [facility] Rx#:[id number] Intake, IV Titration 67.068 Amount Dexmedetomidine/0.9% NaCl 67.068 (Pmx) 400 mcg In Empty Bag 1 bag @ 0.2 MCG/KG/HR 2.76 mls/hr IV .Q24H [facility] Rx#:[id number] Oral 980 200 Output: Chest Tube Drainage 20 Chest Tube Left 20 Urine 735 459 8893 Other: Voiding Method Indwelling Catheter Indwelling Catheter Indwelling Catheter ABP, PAP, CO, CI - Last Documented Arterial Blood Pressure 109/55 - Exam General: [non toxic], [no distress], [cachectic ill-appearing] Derm: [warm], [dry] Head: [atraumatic], [normocephalic], [symmetric] Eyes: [EOMI], [no lid lag], [anicteric sclera] Mouth: [no lip lesion], [mucus membranes moist] Cardiovascular: [S1S2 reg], [no murmur], [positive posterior tibial pulse bilateral], Lungs: [Decreased breath sounds bilateral], [no rhonchi, no rales] , [no accessory muscle use], [left sided chest tube in place] Abdominal: [soft], [ nontender to palpation], [no guarding], [no appreciable organomegaly] Ext: [no gross muscle atrophy], [no edema], [no contractures] Neuro: [no focal neuro deficits] Psych: [Alert], [oriented], [appropriate affect] - Labs CBC & Chem 7: 08/08/21 05:39 08/08/21 05:39 Labs: Abnormal Lab Results - Last 24 Hours (Table) 08/08/21 08/08/21 08/08/21 Range/Units 05:39 05:39 11:46 RBC 3.31 L (4.30-5.90) m/uL Hgb 9.0 L (13.0-17.5) gm/dL Hct 29.3 L (39.0-53.0) % MCHC 30.8 L (31.0-37.0) g/dL RDW 17.6 H (11.5-15.5) % Plt Count 471 H (150-450) k/uL Carbon Dioxide 31 H (22-30) mmol/L Creatinine 0.55 L (0.66-1.25) mg/dL Glucose 104 H (74-99) mg/dL POC Glucose (mg/dL) 144 H (75-99) mg/dL Calcium 8.0 L (8.4-10.2) mg/dL Total Protein 5.6 L (6.3-8.2) g/dL Albumin 2.4 L (3.5-5.0) g/dL Microbiology - Last 24 Hours (Table) 08/05/21 21:08 Gram Stain - Final Sputum Sputum Culture - Final Assessment and Plan Assessment: Assessment: #1 acute hypoxic respiratory failure #2 tension pneumothorax left-sided status post chest tube #3 recent history of GI bleed #4 elevated cardiac troponin secondary to ACS versus demand ischemia #5 history of histoplasmosis #6 history of congestive heart failure with ICD in place Plan: -Patient currently admitted to ICU level of care -Aspiration/fall precaution/HOB 30 -Patient was extubated 08/06/21. -Continue supplemental O2 to maintain O2 saturation greater than 92% -Agree with resuming itraconazole antifungal treatment ID consulted -Cardiology also consulted, echocardiogram shows EF 30-35%, recommend co nservative management from their perspective. As a patient not a candidate for any intervention at this time. -Case discussed with family present at bedside with daughter. -DVT prophylaxis SCDs for now Prognosis unfortunately poor.
[2021-08-08] MEDS: ATORVASTATIN 40 MG TAB PO SCH (21:07)
[2021-08-09] MEDS: SODIUM CHLORIDE 0.9% 1,000 ML IV SCH (04:10)
--- NOTE | 2021-08-09 06:06 | XR ---
EXAMINATION TYPE: XR chest 1V portable DATE OF EXAM: 08/09/2021 CLINICAL HISTORY: Difficulty breathing progress study. TECHNIQUE: Single AP portable upright view of the chest is obtained. COMPARISON: Chest x-ray from one day earlier and older studies. FINDINGS: Stable left apical chest tube. Stable right-sided PICC. Continued resolving subcutaneous emphysema.Heart size remains upper limits of normal with single lead pacemaker/defibrillator. Upper lung parenchymal scarring and opacity with hilar retraction redemonst rated. No visualized pneumothorax. Persistent right basilar opacity consistent with infiltrate and/or atelectasis. Osseous structures are intact. IMPRESSION: Persistent upper lung scarring and volume loss, areas of acute infiltrate not excluded. P ersistent right basilar acute infiltrate and/or atelectasis. Left-sided chest tube without pneumothor ax. No significant change from one day earlier.
[2021-08-09 06:31] LABS: Anisocytosis Slight; Basophils % (A) 0 %; Eosinophils # (A) 0.5 k/uL (0-0.7); Eosinophils % (A) 6 %; HCT 28.6 % (39.0-53.0); HGB 8.8 gm/dL (13.0-17.5); Hypochromasia Marked; Lymphocytes # (A) 1.2 k/uL (1.0-4.8); Lymphocytes % (A) 15 %; MCH 27.1 pg (25.0-35.0); MCHC 30.6 g/dL (31.0-37.0); MCV 88.6 fL (80.0-100.0); Mean Platelet Volume 7.7; Monocytes # (A) 0.5 k/uL (0-1.0); Monocytes % (A) 6 %; Neutrophils # (A) 5.4 k/uL (1.3-7.7); Neutrophils % (A) 71 %; Platelet Count 470 k/uL (150-450); Poikilocytosis Slight; RBC 3.23 m/uL (4.30-5.90); WBC 7.6 k/uL (3.8-10.6)
[2021-08-09] MEDS: carvediloL 6.25 MG TAB PO SCH ×2 (06:41→16:58)
[2021-08-09 06:43] LABS: ALT 27 U/L (4-49); AST 22 U/L (17-59); African American GFR (CKD) >90 (>60 ml/min/1.73 sqM); Albumin 2.4 g/dL (3.5-5.0); Alkaline Phosphatase 95 U/L (38-126); Anion Gap 3 mmol/L; Blood Urea Nitrogen 18 mg/dL (9-20); Carbon Dioxide 32 mmol/L (22-30); Chloride 100 mmol/L (98-107); Glucose 121 mg/dL (74-99); Non-African American GFR(CKD) >90 (>60 ml/min/1.73 sqM); Potassium 3.8 mmol/L (3.5-5.1); Sodium 135 mmol/L (137-145); Total Bilirubin 0.7 mg/dL (0.2-1.3); Total Protein 5.4 g/dL (6.3-8.2)
[2021-08-09] MEDS ORDERED: POTASSIUM CHLORIDE ER 20 MEQ TAB.ER PO SCH (08:00)
[2021-08-09] MEDS: IPRATROPIUM-ALBUTEROL 3 ML NEB INHALATION PRN ×5 (08:00→23:33)
[2021-08-09] MEDS: NICOTINE 21MG/24HR PATCH TRANSDERM SCH (09:10)
[2021-08-09] MEDS: PANTOPRAZOLE 40 MG/10 ML VIAL IV SCH ×2 (09:11→20:53)
[2021-08-09] MEDS: ASPIRIN 81 MG PO SCH (09:11)
[2021-08-09] MEDS: ITRACONAZOLE 100 MG CAP PO SCH ×3 (09:11→22:17)
[2021-08-09] MEDS: ENOXAPARIN 40 MG/0.4 ML SYRINGE SQ SCH (09:11)
[2021-08-09] MEDS: OXYMETAZOLINE 0.05% NASL SPRAY 1 SPRAY BOTTLE NASAL SCH ×2 (09:12→20:53)
[2021-08-09] MEDS: TRELEGY INHALATION SCH (09:23)
[2021-08-09] MEDS: NON FORMULARY DRUG (Buprenorphine Hcl/Naloxone Hcl [Suboxone 8 Mg-2 Mg Sl Film] 1 EACH Fil SUBLINGUAL SCH ×3 (09:41→22:17)
--- NOTE | 2021-08-09 12:10 | P.PN ---
Subjective Progress Note Date: 08/09/21 On today's evaluation of 08/06/2021, seeing the patient for a follow-up. Noted the patient went into respiratory failure due to a large left-sided pneumothorax. Accordingly, the patient a chest tube inserted yesterday with successful reexpansion of the left lung. Nevertheless, the patient continued to have a significant amount of air leak from the chest tube. This morning, the patient is sedated with propofol. Propofol is running at 50 mcg/kg per minute. The patient is currently on assist control mode a mechanical ventilation with a rate of 22, tidal volume of 450 mL an FiO2 of 60% and a PEEP of 5. The patient's blood culture showed a pH of 7.4 with a pCO2 of 40 and pO2 of 103. Chest x-ray showing some case emphysema in the neck and anterior chest area and the patient has a left-sided chest tube in place without evidence of any pneumothorax. On a mechanical ventilator, the patient is losing approximately 200 mL of air and this is due to a large air leak that being suctioned and the Pleur-evac. Output in terms of fluid is minimal from the left-sided chest tube. The patient remains on a low dose norepinephrine infusion running at 0.04 mcg/kg per minute. The patient is on enteral feeding for nutritional support and the patient is sitting vital high protein at the rate of 10 mL an hour and the goal is at 40. His white cell count is at 12.8 with hemoglobin of 9.3 and a platelet count of 642. BUN is 19 with a creatinine of 0.6 and a sodium level is at 140. Troponin peaked at 1.6 dropped down to 1.3. No other significant events overnight. No other cardiac arrhythmias. Family is at the bedside. The patient remains on Sporanox. The patient continues to have opacity in the upper lobes bilaterally and is a dense areas of consolidations. He remains on Lovenox for prophylaxis 40 mg subcu every 24 hours. He is also on oral aspirin 81 mg by mouth daily. 08/07/2021, the patient is being seen for a follow-up. The patient was extubated yesterday and this morning he is on 6 L of O2 by nasal cannula. Family is at the bedside. Doing well. Communicating. His Clare status is very borderline and the patient gets short of breath with longer sentences and limited amount of activity. Currently is at bedrest. He continues to have a left-sided chest tube and the patient was having wide-open air leak yesterday and on today's evaluation, the air leak is improved and there is only intermittent air leak that has been noted. Meanwhile, the patient's subcutaneous emphysema is also improved. The chest x-ray from today shows upper lobe consolidation right more than left along with bullous changes in the upper lobes bilaterally. No evidence of any pneumothorax on today's chest x-ray. The patient remains on Precedex at 0.2 mcg/kg per minute and this will be gradually weaned off. The white cell count is at 8 with a hemoglobin of 9 and a platelet count of 497. Sodium is at home 42 with a potassium level of 3.8 and a BUN of 18 with a creatinine of 0.6. He remains on itraconazole 200 mg by mouth 3 times a day. He remains on Xanax and Lunesta basis for anxiety. He is on DuoNeb nebulized treatments around the clock the left sided chest tube is in place. He is off pressors for now. Cardiac rhythm is sinus. 08/08/2021, the patient is doing well in no specific complaints. He is currently on 6 L of O2 by nasal cannula. The chest x-ray from today is unchanged and the patient has improvement in the subcutaneous emphysema there is no evidence of any pneumothorax. Consolidation are seen in the upper lobes bilaterally right more than left. The patient continues to be monitored closely in the intensive care unit. He was given Afrin for some nasal congestion and postnasal drainage. He is currently off Precedex. His anxiety level is improved and the patient will be given Xanax 0.25 g 3 times a day on an as- needed basis. The chest tube is in place. The air leak is absent today. Based on that, made recommendations to put the chest tube to waterseal. No nausea. No vomiting. Tolerating diet. Complicated with his family. The white cell count of 5.8 with a hemoglobin of 9 and a platelet count of 471. BUN is at 60 with a creatinine of 0.55. Sodium level is at 139. He remains on itraconazole. Cardiac rhythm is sinus. He is on no pressors for now. On 08/09/2021, the patient remains stable. He remains on O2 at 6 L of O2 by blake al cannula. No specific complaints. No chest pain. No shortness of breath. He was given a dose of Lasix yesterday 40 mg IV push and overall fluid balance is -3.0 L over the past 24 hours. Chest x-ray from today shows no evidence of any pneumothorax. There is also no evidence of any subcutaneous emphysema. Note that the Pleur-evac was disconnected from suction and the patient was on waterseal for the past 24 hours. No cardiac arrhythmias. The white cell count is at 7.6 with a hemoglobin of 8.8 and his sodium level is at 135 with a BUN of 18 and a creatinine of 0.5. The patient was on 6 L and I managed to cut him down to 3 L of O2 by nasal cannula. Tolerating diet. No nausea. No vomiting. No chest pain. No fever. No chills. Objective - Vital Signs Vital signs: Vital Signs Temp 98.0 F 08/09/21 08:00 Pulse 98 08/09/21 11:49 Resp 23 08/09/21 11:00 BP 105/66 08/09/21 11:00 Pulse Ox 94 L 08/09/21 11:00 Intake & Output 08/08/21 08/09/21 08/09/21 18:59 06:59 18:59 Intake Total 240 260 80 Output Total 2660 855 475 Balance -2420 -595 -395 Weight 56.7 kg Intake: IV 240 260 80 Sodium Chloride 0.9% 1, 240 260 80 000 ml @ 20 mls/hr IV . Q24H [facility] Rx#:[id number] Output: Chest Tube Drainage 20 Chest Tube Left 20 Urine 2660 835 475 Other: Voiding Method Indwelling Catheter Indwelling Catheter Indwelling Catheter ABP, PAP, CO, CI - Last Documented Arterial Blood Pressure 109/55 - Exam Gen. appearance the patient think cachectic with a body mass index of 20.3 currently on 3 L of O2 by nasal cannula Head exam was generally normal. There was no scleral icterus or corneal arcus. Mucous membranes were moist. Neck was supple and without jugular venous distension, thyromegaly, or carotid bruits. Carotids were easily palpable bilaterally. There was no adenopathy. There is evidence of subcutaneous emphysema over the neck area and this has improved on today's evaluation Lungs sounds are diminished and the patient has evidence of subcutaneous emphysema over the anterior chest. The patient also has a left-sided chest tube which is a 32-Maltese chest tube with positive air leak. No significant fluid output from the left hemithorax. Scattered rhonchi. No significant wheezing. The patient has no air leak in the left-sided chest tube. Cardiac exam revealed the PMI to be normally situated and sized. The rhythm was regular and no extrasystoles were noted during several minutes of auscultation. The first and second heart sounds were normal and physiologic splitting of the second heart sound was noted. There were no murmurs, rubs, clicks, or gallops. Patient has an AICD pocket over the left anterior chest area. Abdominal exam revealed normal bowel sounds. The abdomen was soft, non-tender, and without masses, organomegaly, or appreciable enlargement of the abdominal aorta. Examination of the extremities revealed easily palpable radial, femoral and pedal pulses. There was no cyanosis, clubbing or edema. Examination of the skin revealed no evidence of significant rashes, suspicious appearing nevi or other concerning lesions. Neurologically the patient awake and alert and following commands and answering questions. Generalized weakness no 4 extremities, no focal neurological deficits. - Labs CBC & Chem 7: 08/09/21 05:44 08/09/21 05:44 Labs: Abnormal Lab Results - Last 24 Hours (Table) 08/09/21 08/09/21 Range/Units 05:44 05:44 RBC 3.23 L (4.30-5.90) m/uL Hgb 8.8 L (13.0-17.5) gm/dL Hct 28.6 L (39.0-53.0) % MCHC 30.6 L (31.0-37.0) g/dL RDW 17.0 H (11.5-15.5) % Plt Count 470 H (150-450) k/uL Sodium 135 L (137-145) mmol/L Carbon Dioxide 32 H (22-30) mmol/L Creatinine 0.57 L (0.66-1.25) mg/dL Glucose 121 H (74-99) mg/dL Calcium 8.0 L (8.4-10.2) mg/dL Total Protein 5.4 L (6.3-8.2) g/dL Albumin 2.4 L (3.5-5.0) g/dL Microbiology - Last 24 Hours (Table) 08/05/21 21:08 Gram Stain - Final Sputum Sputum Culture - Final Assessment and Plan Plan: 1 acute hypoxic respiratory failure secondary to a large secondary pneumothorax, a complication of bullous emphysema and pneumonia , status post insertion of a large left-sided chest tube, 32-Maltese, with reexpansion of the left lung without any complications. The patient was extubated on 07/06/2021 and currently is on 3 L of O2 by nasal cannula 2 large left-sided neck and a pneumothorax, post chest tube insertion and the patient currently is a 32-Maltese chest tube in place with adequate expansion of the left lung without any residual pneumothorax. There was significant wide-open persistent air leak on the Pleur-evac the patient is losing approximately 100 mL of air from the generator to deliver tidal volume by the mechanical ventilator, and air leak continued to occur following his extubation. Nevertheless, this morning, the chest x-ray showing evidence of pneumothorax an d there is no evidence of any air leak on today's evaluation in the Pleur-evac. The chest tube is currently on was associated has been on with associated over the past 24 hours. 3 advanced COPD with bullous changes in the upper lobes bilaterally 4 acute non-ST segment elevation myocardial infarction with secondary hypotension secondary to above, currently the patient is off pressors.. The patient is known to have chronic systolic heart failure with impaired left ventricular ejection fraction. 5 Histoplasma pneumonia with upper lobe predominance. The patient had bilateral upper lobe pneumonia status post recent bronchoscopy with BAL on 06/24/2021, with negative BAL and viral cultures, COVID-19 PCR was negative. Patient is status post repeat bronchoscopy with BAL on 07/07/2021 with transbronchial biopsies of the right middle lobe, brushings and BAL of the right middle lobe, transbronchial biopsies were consistent with organizing pneumonia, BAL cultures negative thus far. Meanwhile, the patient had positive histoplasma antibody titers. Histoplasma serum antigen came back positive. 6 coronary artery disease with previous myocardial infarction 7 history of atrial fibrillation 8 history of pacemaker/SB placement 9 history of CHF with systolic heart failure with an ejection fraction of 3035% 10 history of bilateral inguinal hernia repair 11 history of prescription narcotic abuse currently on Suboxone 12 chronic anxiety Plan Keep the patient on O2 at 3 L of O2 by nasal cannula Wean down the FiO2 as tolerated to maintain saturation above 90% Chest tube has been attached to water seal. I'm suggesting capping the chest if for another 24 hours and the patient's chest x-ray tomorrow. If asymptomatic and there is no recurrence of the pneumothorax, the chest tube may possibly removed The patient and family understand that there is a high risk of having another pneumothorax in the future Continue 0.25 mg on as-needed basis, increase the dose up to 4 times a day as needed BiPAP if needed Daily chest x-rays Continue bronchodilators Continue itraconazole 200 mg by mouth 3 times a day Gentle fluid hydration with normal state rate of 50 mL an hour IV Protonix Lovenox for DVT prophylaxis IV Dilaudid for pain control Advance diet as tolerated Condition is still critical we'll continue to follow make further recommendations based on his progress.
[2021-08-09] MEDS: ALPRAZolam 0.25 MG TAB PO PRN (12:53)
--- NOTE | 2021-08-09 16:15 | P.PN ---
Subjective Progress Note Date: 08/09/21 Patient was seen and examined. No acute events overnight. He is currently on 5 L nasal cannula maintaining O2 saturation greater than 90%. He reports slight improvement in his breathing. Chest tube clamped. CBC shows hemoglobin of 8.8 with MCV of 88.6 along with platelet count of 471. BMP shows a bicarb of 32, creatinine of 0.57, glucose of 121 and calcium of 8 with albumin of 2.4. Objective - Vital Signs Vital signs: Vital Signs Temp 98.3 F 08/09/21 12:00 Pulse 98 08/09/21 16:07 Resp 19 08/09/21 15:00 BP 112/64 08/09/21 14:00 Pulse Ox 91 L 08/09/21 15:00 Intake & Output 08/08/21 08/09/21 08/09/21 18:59 06:59 18:59 Intake Total 240 260 160 Output Total 2660 855 825 Balance -2420 -595 -665 Weight 56.7 kg Intake: IV 240 260 160 Sodium Chloride 0.9% 1, 240 260 160 000 ml @ 20 mls/hr IV . Q24H [facility] Rx#:[id number] Output: Chest Tube Drainage 20 Chest Tube Left 20 Urine 2660 835 825 Other: Voiding Method Indwelling Catheter Indwelling Catheter Indwelling Catheter ABP, PAP, CO, CI - Last Documented Arterial Blood Pressure 109/55 - Exam General: [non toxic], [no distress], [cachectic ill-appearing] Derm: [warm], [dry] Head: [atraumatic], [normocephalic], [symmetric] Eyes: [EOMI], [no lid lag], [anicteric sclera] Mouth: [no lip lesion], [mucus membranes moist] Cardiovascular: [S1S2 reg], [no murmur], [positive posterior tibial pulse bilateral], Lungs: [Decreased breath sounds bilateral], [no rhonchi, no rales] , [no accessory muscle use], [left sided chest tube in place] Abdominal: [soft], [ nontender to palpation], [no guarding], [no appreciable organomegaly] Ext: [no gross muscle atrophy], [no edema], [no contractures] Neuro: [no focal neuro deficits] Psych: [Alert], [oriented], [appropriate affect] - Labs CBC & Chem 7: 08/09/21 05:44 08/09/21 05:44 Labs: Abnormal Lab Results - Last 24 Hours (Table) 08/09/21 08/09/21 Range/Units 05:44 05:44 RBC 3.23 L (4.30-5.90) m/uL Hgb 8.8 L (13.0-17.5) gm/dL Hct 28.6 L (39.0-53.0) % MCHC 30.6 L (31.0-37.0) g/dL RDW 17.0 H (11.5-15.5) % Plt Count 470 H (150-450) k/uL Sodium 135 L (137-145) mmol/L Carbon Dioxide 32 H (22-30) mmol/L Creatinine 0.57 L (0.66-1.25) mg/dL Glucose 121 H (74-99) mg/dL Calcium 8.0 L (8.4-10.2) mg/dL Total Protein 5.4 L (6.3-8.2) g/dL Albumin 2.4 L (3.5-5.0) g/dL Assessment and Plan Assessment: Assessment: #1 acute hypoxic respiratory failure #2 tension pneumothorax left-sided status post chest tube #3 recent history of GI bleed #4 elevated cardiac troponin secondary to ACS versus demand ischemia #5 history of histoplasmosis #6 history of congestive heart failure with ICD in place Plan: -Patient currently admitted to ICU level of care -Aspiration/fall precaution/HOB 30 -Patient was extubated 08/06/21. -Continue supplemental O2 to maintain O2 saturation greater than 92% -Agree with resuming itraconazole antifungal treatment ID consulted -Cardiology also consulted, echocardiogram shows EF 30-35%, recommend conservative management from their perspective. As a patient not a candidate for any intervention at this time. -Case discussed with family present at bedside with daughter. -Chest tube clamped. Hopeful removal of chest tube tomorrow if CXR stable. -DVT prophylaxis SCDs for now Prognosis unfortunately poor.
[2021-08-09] MEDS: HYDROmorphone 1 MG/ML 1 ML SYRINGE IVP PRN (18:06)
[2021-08-09] MEDS: ATORVASTATIN 40 MG TAB PO SCH (20:53)
--- NOTE | 2021-08-09 22:56 | P.PN ---
Subjective Progress Note Date: 08/09/21 Principal diagnosis: Pulmonary histoplasmosis Patient is a 56-year-old male with a past medical history significant for advanced COPD extensive emphysema in this patient who was recently diagnosed with extensive pneumonia secondary to pulmonary histoplasmosis on the basis of a positive serum as well as urine and vision and the patient has been treated with Sporanox, presenting back to the hospital with increasing shortness of breath and noticed to have left-sided pneumothorax requiring a chest tube placement. On today's evaluation that is 08/09/2021 the patient remains to be afebrile, the patient is breathing comfortably on a 5 L nasal cannula oxygen, the patient left-sided chest pain is currently controlled the patient did have a cough with occasional sputum no vomiting abdominal pain no diarrhea Objective - Vital Signs Vital signs: Vital Signs Temp 98.3 F 08/09/21 12:00 Pulse 93 08/09/21 13:00 Resp 23 08/09/21 13:00 BP 114/68 08/09/21 13:00 Pulse Ox 91 L 08/09/21 13:00 Intake & Output 08/08/21 08/09/21 08/09/21 18:59 06:59 18:59 Intake Total 240 260 100 Output Total 2660 855 600 Balance -2420 -595 -500 Weight 56.7 kg Intake: IV 240 260 100 Sodium Chloride 0.9% 1, 240 260 100 000 ml @ 20 mls/hr IV . Q24H [facility] Rx#:[id number] Output: Chest Tube Drainage 20 Chest Tube Left 20 Urine 2660 835 600 Other: Voiding Method Indwelling Catheter Indwelling Catheter Indwelling Catheter ABP, PAP, CO, CI - Last Documented Arterial Blood Pressure 109/55 - Exam GENERAL DESCRIPTION: Middle-aged male lying in bed in no distress RESPIRATORY SYSTEM: Unlabored breathing , decreased breath sounds at bases HEART: S1 S2 regular rate and rhythm , ABDOMEN: Soft , no tenderness EXTREMITIES: No edema feet - Labs CBC & Chem 7: 08/09/21 05:44 08/09/21 05:44 Labs: Abnormal Lab Results - Last 24 Hours (Table) 08/09/21 08/09/21 Range/Units 05:44 05:44 RBC 3.23 L (4.30-5.90) m/uL Hgb 8.8 L (13.0-17.5) gm/dL Hct 28.6 L (39.0-53.0) % MCHC 30.6 L (31.0-37.0) g/dL RDW 17.0 H (11.5-15.5) % Plt Count 470 H (150-450) k/uL Sodium 135 L (137-145) mmol/L Carbon Dioxide 32 H (22-30) mmol/L Creatinine 0.57 L (0.66-1.25) mg/dL Glucose 121 H (74-99) mg/dL Calcium 8.0 L (8.4-10.2) mg/dL Total Protein 5.4 L (6.3-8.2) g/dL Albumin 2.4 L (3.5-5.0) g/dL Microbiology - Last 24 Hours (Table) 08/05/21 21:08 Gram Stain - Final Sputum Sputum Culture - Final Assessment and Plan (1) Pneumonia Current Visit: No Status: Acute Code(s): J18.9 - PNEUMONIA, UNSPECIFIED ORGANISM SNOMED Code(s): 923959490 Plan: 1patient with COPD with extensive eczema and recent diagnosis with extensive histoplasma pneumonia on the basis of positive urine and serum antigen no admit to the hospital with large pneumothorax questionable related to the fall versus to his extensive emphysema in this patient who is status post chest tube placement patient this admission , the patient did have a fever 1 during this admission however no fever since then and cultures remains to be negative 2patient is currently being treated with Sporanox 200 mg 3 times a day and monitor his clinical course closely. Time with Patient: Less than 30
[2021-08-10] MEDS: ALPRAZolam 0.25 MG TAB PO PRN ×2 (00:12→18:02)
[2021-08-10] MEDS: IPRATROPIUM-ALBUTEROL 3 ML NEB INHALATION PRN ×6 (03:25→23:52)
[2021-08-10] MEDS: carvediloL 6.25 MG TAB PO SCH ×2 (08:32→18:02)
[2021-08-10] MEDS: ENOXAPARIN 40 MG/0.4 ML SYRINGE SQ SCH (08:32)
[2021-08-10] MEDS: ASPIRIN 81 MG PO SCH (08:32)
[2021-08-10] MEDS: PANTOPRAZOLE 40 MG/10 ML VIAL IV SCH ×2 (08:33→22:00)
[2021-08-10] MEDS: ITRACONAZOLE 100 MG CAP PO SCH ×3 (08:33→22:08)
[2021-08-10] MEDS: NICOTINE 21MG/24HR PATCH TRANSDERM SCH (08:33)
[2021-08-10] MEDS: OXYMETAZOLINE 0.05% NASL SPRAY 1 SPRAY BOTTLE NASAL SCH ×2 (08:34→09:11)
[2021-08-10] MEDS: NON FORMULARY DRUG (Buprenorphine Hcl/Naloxone Hcl [Suboxone 8 Mg-2 Mg Sl Film] 1 EACH Fil SUBLINGUAL SCH ×3 (09:13→22:01)
--- NOTE | 2021-08-10 10:06 | XR ---
EXAMINATION TYPE: XR chest 1V portable DATE OF EXAM: 08/10/2021 COMPARISON: 08/09/2021 HISTORY: Chest tube TECHNIQUE: Single frontal view of the chest is obtained. FINDINGS: Continued resolving subcutaneous emphysema. Heart size remains upper limits of normal wit h single lead pacemaker/defibrillator. Upper lung parenchymal opacity with hilar retraction redemonst rated. No visualized pneumothorax. Persistent right basilar opacity consistent with infiltrate and/or atelectasis slightly improved. Osseous structures are intact. IMPRESSION: 1. Bilateral areas"pleural thickening with no sizable pneumothorax. Pneumonia or neoplasm in the diff erential diagnosis. 2. There is very mild improvement of the right lower lobe area of infiltrate.
[2021-08-10] MEDS: TRELEGY INHALATION SCH (11:37)
[2021-08-10] MEDS: SODIUM CHLORIDE 0.9% 1,000 ML IV SCH (11:38)
[2021-08-10 11:51] LABS: African American GFR (CKD) >90 (>60 ml/min/1.73 sqM); Anion Gap 8 mmol/L; Blood Urea Nitrogen 18 mg/dL (9-20); Calcium 8.4 mg/dL (8.4-10.2); Carbon Dioxide 25 mmol/L (22-30); Chloride 103 mmol/L (98-107); Glucose 133 mg/dL (74-99); Non-African American GFR(CKD) >90 (>60 ml/min/1.73 sqM); Potassium 4.1 mmol/L (3.5-5.1); Sodium 136 mmol/L (137-145)
--- NOTE | 2021-08-10 12:17 | P.PN ---
Subjective Progress Note Date: 08/10/21 Principal diagnosis: Acute hypoxic respiratory failure secondary to large secondary pneumothorax, severe COPD, and histoplasma pneumonia On 08/09/2021, the patient remains stable. He remains on O2 at 6 L of O2 by nasal cannula. No specific complaints. No chest pain. No shortness of breath. He was given a dose of Lasix yesterday 40 mg IV push and overall fluid balance is -3.0 L over the past 24 hours. Chest x-ray from today shows no evidence of any pneumothorax. There is also no evidence of any subcutaneous emphysema. Note that the Pleur-evac was disconnected from suction and the patient was on waterseal for the past 24 hours. No cardiac arrhythmias. The white cell count is at 7.6 with a hemoglobin of 8.8 and his sodium level is at 135 with a BUN of 18 and a creatinine of 0.5. The patient was on 6 L and I managed to cut him down to 3 L of O2 by nasal cannula. Tolerating diet. No nausea. No vomiting. No chest pain. No fever. No chills. Patient was reevaluated today on 08/10/2021, remains in the ICU, on 5 L nasal cannula, O2 saturation is 92-94%, patient is doing well, continues to have left- sided chest tube in place, the chest tube was clamped for the last 24 hours, early this morning the patient was very short of breath, he had a vigorous coug h, and he felt gush of air around the chest tube, and he felt much better after that gush of air. Tube remains clamped, chest x-ray this morning showed no evidence of pneumothorax. However considering his clinical history, I'm a bit reluctant to discontinue the chest tube at this point as he may have had a pneumothorax overnight, and he was able to clear it with his vigorous cough earlier today. Hence I'm going to keep the chest tube suction but on waterseal. Patient remains on Sporanox. His sputum cultures remain negative. Overall the patient is steadily improving. CBC is relatively normal electrolytes are normal renal profile is normal Objective - Vital Signs Vital signs: Vital Signs Temp 98.4 F 08/10/21 12:00 Pulse 87 08/10/21 12:00 Resp 17 08/10/21 12:00 BP 101/67 08/10/21 12:00 Pulse Ox 92 L 08/10/21 12:00 Intake & Output 08/09/21 08/10/21 08/10/21 18:59 06:59 18:59 Intake Total 220 240 500 Output Total 945 1100 610 Balance -725 -860 -110 Intake: IV 220 240 100 Sodium Chloride 0.9% 1, 220 240 100 000 ml @ 20 mls/hr IV . Q24H [facility] Rx#:[id number] Oral 400 Output: Urine 945 1100 610 Other: Voiding Method Indwelling Catheter Indwelling Catheter Indwelling Catheter ABP, PAP, CO, CI - Last Documented Arterial Blood Pressure 109/55 - Exam Physical Exam: Revealed a 56-year-old white male in no distress. Head: Atraumatic, normocephalic. HEENT:[Neck is supple.] [No neck masses.] [No thyromegaly.] [No JVD.] Chest: [Diminished breath sounds at the bases no rhonchi and no wheezes left- sided chest tube is noted. No air leak is noted Cardiac Exam: [Normal S1 and S2, no S3 gallop, no murmur.] Abdomen: [Soft, nontender, no megaly, no rebound, no guarding, normal bowel sounds.] Extremities: [No clubbing, no edema, no cyanosis.] Neurological Exam: [No focal neurologic deficit.] Alert and oriented 3. Psychiatric: Normal mood affect and normal mental status examination. Skin: No rashes. - Labs CBC & Chem 7: 08/09/21 05:44 08/10/21 11:05 Labs: Abnormal Lab Results - Last 24 Hours (Table) 08/10/21 Range/Units 11:05 Sodium 136 L (137-145) mmol/L Creatinine 0.54 L (0.66-1.25) mg/dL Glucose 133 H (74-99) mg/dL Assessment and Plan Assessment: Impression: Acute hypoxic respiratory failure secondary to secondary pneumothorax, bullous emphysema/COPD, and histoplasma pneumonia. Acute left sided pneumothorax requiring chest tube placement Advanced COPD with bullous emphysema Chronic systolic congestive heart failure and LV dysfunction history of non-ST elevation myocardial infarction Histoplasma pneumonia involving upper lobes Coronary artery disease and previous [place] History of atrial fibrillation History of pacemaker implantation History of bilateral inguinal hernia repair Generalized anxiety disorder Recommendation: Continue to monitor the patient in the ICU Continue oxygen Continue chest tube in place, keep on waterseal. Off suction. Continue to treat his fungal pneumonia/Sporanox. Continue bronchodilators. Continue GI and DVT prophylaxis Continue Dilaudid for pain Advanced diet as tolerated Ambulate We'll likely transfer out of the ICU in the next 24 hours. Time with Patient: Less than 30
--- NOTE | 2021-08-10 12:55 | CDI ---
Documentation Clarification Form Date: 08/10/2021 11:14:00 AM From: Jasmyn Puri RN, CCDS Admit Date: 08/04/2021 10:42:00 PM Patient Name: Yuan Li Visit Number: [id number] Discharge Date: ATTENTION: The Clinical Documentation Specialists (CDI) and [facility] Coding Staff appreciate your assistance in clarifying documentation. Please respond to the clarification below the line at the bottom and electronically sign. The CDI & [facility] Coding staff will review the response and follow-up if needed. Please note: Queries are made part of the Legal Health Record. If you have any questions, please contact the author of this message via ITS. Dr. Roosevelt Fritz Conflicting documentation has been found in the medical record. As attending physician, please provide clarification. 08/04 Emergency clinical impression: non-ST elevated myocardial infarction 08/05 attending: Elevated cardiac troponin secondary to ACS versus demand ischemia 08/05 Cardiology The elevation of troponin is most probably is related to anemia and hypoxia and secondary to metabolic issue. At this point I don't see and acute cardiac issues. History/Risk Factors: Congestive heart failure, COPD, Atrial fibrillation, GI bleeding Clinical Indicators: 56-year-old male present as transfer from [facility] intubated and found to have a left-sides pneumothorax and a decompression catheter was placed. He had troponin elevation at presentation, 0.576 on 08/04, and 1.630 on 08/05/2108/04 EKG: Sinus rhythm with occasional ventricular premature complexes vent rate 78 bpm 08/05 ECHO: Overall left ventricular systolic function is moderate-severely impaired with, an EF between 30-35 % 08/04 Vital sign: 91/60 82 22 97.6 (mechanical ventilation) Treatment: ICU/Telemetry monitoring Vent monitoring per pulmonary Monitor O2 sat's per protocol 08/05 Transfuse 1 unit PRBC Monitor CBC/BMP per orders .9NS 500 ML Bolus x2 08/04 Please clarify which diagnosis is most appropriate: [ ] non-ST elevation myocardial infarction (NSTEMI [ ] Demand Ischemia secondary to anemia and hypoxia [ ] Type 11 IN secondary to anemia and hypoxia [ ] Other (please specify) [ ] Unable to determine (Template Last Revised: June 2020) -Secondary type II IN in the setting of acute hypoxia, &pneumothorax, COPD, histoplasmosis Dictated By: Izabela Johnson MD Signed By: <Electronically signed by Izabela Johnson MD> 08/10/21 1513 MTDD
--- NOTE | 2021-08-10 13:40 | PN ---
PROGRESS NOTE This gentleman has a history of CAD with previous PCI, but he came into the hospital with basically pulmonary problems and a pneumothorax. He has chest tubes and is being followed closely by Pulmonary. Cardiac-machado he is stable; no anginal symptoms. He is resting comfortably without any significant symptoms. Vitals are stable. He is in sinus rhythm. S1, S2 heard normally. Lungs reveal diminished air entry. Chest tube is still in place. Abdomen is soft. Lower extremities reveal diminished pulses. Central nervous system grossly no focal deficits. From a cardiac standpoint, plan is to continue current medical regimen, including carvedilol, aspirin, atorvastatin, and we will see him as needed from a cardiac standpoint. His pneumothorax issues are being managed by Pulmonology. MMODL / IJN: [id number] /
[2021-08-10 13:43] LABS: Anisocytosis Slight; Basophils % (A) 1 %; Eosinophils # (A) 0.5 k/uL (0-0.7); Eosinophils % (A) 6 %; HCT 29.8 % (39.0-53.0); HGB 9.1 gm/dL (13.0-17.5); Hypochromasia Marked; Lymphocytes # (A) 1.3 k/uL (1.0-4.8); Lymphocytes % (A) 16 %; MCH 26.9 pg (25.0-35.0); MCHC 30.7 g/dL (31.0-37.0); MCV 87.6 fL (80.0-100.0); Mean Platelet Volume 10.1; Monocytes # (A) 0.6 k/uL (0-1.0); Monocytes % (A) 8 %; Neutrophils # (A) 5.6 k/uL (1.3-7.7); Neutrophils % (A) 69 %; Platelet Count 525 k/uL (150-450); Poikilocytosis Slight; RDW 16.8 % (11.5-15.5); WBC 8.1 k/uL (3.8-10.6)
--- NOTE | 2021-08-10 15:13 | P.PN ---
Subjective Progress Note Date: 08/10/21 Patient was seen and examined ICU, he is currently on 4-5 L nasal cannula, oxygen saturation has been in the mid to high 90s. He denies any shortness of breath at rest, but he is complaining of some dyspnea with activity. Left-sided chest tube remains in place, it was clamped for the last 24 hours but this morning patient was complaining of significant respiratory distress, he reports feeling air leaking out of the chest tube when he is coughing. Chest x-ray this morning shows resolution of pneumothorax, chest tube will most likely made for additional day at least on waterseal. Otherwise he continues to improve daily, and has no new complaints or symptoms. Objective - Vital Signs Vital signs: Vital Signs Temp 98.4 F 08/10/21 12:00 Pulse 98 08/10/21 14:00 Resp 25 H 08/10/21 14:00 BP 98/60 08/10/21 14:00 Pulse Ox 92 L 08/10/21 14:00 Intake & Output 08/09/21 08/10/21 08/10/21 18:59 06:59 18:59 Intake Total 220 240 860 Output Total 945 1100 885 Balance -725 -860 -25 Intake: IV 220 240 160 Sodium Chloride 0.9% 1, 220 240 160 000 ml @ 20 mls/hr IV . Q24H [facility] Rx#:[id number] Oral 700 Output: Urine 945 1100 885 Other: Voiding Method Indwelling Catheter Indwelling Catheter Indwelling Catheter ABP, PAP, CO, CI - Last Documented Arterial Blood Pressure 109/55 - Constitutional General appearance: Present: cooperative, no acute distress, thin - EENT Eyes: Present: EOMI, PERRLA - Neck Neck: Present: normal ROM - Respiratory Details: Chest tube remains in the left side, connected to water seal Respiratory: bilateral: diminished, negative: wheezing - Cardiovascular Rhythm: regular Heart sounds: normal: S1, S2 Abnormal Heart Sounds: Absent: systolic murmur, diastolic murmur - Gastrointestinal General gastrointestinal: Present: normal bowel sounds. Absent: distended, tenderness - Integumentary Integumentary: Present: normal - Neurologic Neurologic: Present: CNII-XII intact, focal deficits - Musculoskeletal Musculoskeletal: Absent: generalized weakness - Psychiatric Psychiatric: Present: A&O x's 3, appropriate affect - Labs CBC & Chem 7: 08/10/21 11:05 08/10/21 11:05 Labs: Abnormal Lab Results - Last 24 Hours (Table) 08/10/21 08/10/21 Range/Units 11: 11:05 RBC 3.40 L (4.30-5.90) m/uL Hgb 9.1 L (13.0-17.5) gm/dL Hct 29.8 L (39.0-53.0) % MCHC 30.7 L (31.0-37.0) g/dL RDW 16.8 H (11.5-15.5) % Plt Count 525 H (150-450) k/uL Sodium 136 L (137-145) mmol/L Creatinine 0.54 L (0.66-1.25) mg/dL Glucose 133 H (74-99) mg/dL Assessment and Plan Plan: Acute hypoxic respiratory failure -Improving -Multifactorial: Secondary to pneumothorax, advanced COPD/emphysema, histoplasmosis pneumonia -Sided chest tube remains in place, pneumothorax appears to have resolved on chest x-ray today. -Chest will most likely remain for an additional day at least given his complicated history -Currently on 4 L, oxygen saturation in the mid 90s Histoplasmosis pneumonia -Improving, continue itraconazole -Patient further recommendations from infectious disease Advanced COPD with bullous emphysema -Continue bronchodilators -Supplemental oxygen to maintain saturation greater than 90% -Patient further recommendations from pulmonology Chronic systolic congestive heart failure and LV dysfunction history -Cardiology consulted, echocardiogram shows EF 30-35%, recommend conservative management from their perspective. As a patient not a candidate for any intervention at this time -Fluid restrictions Elevated cardiac troponin secondary to ACS versus demand ischemia -Resolving -Secondary type II IA in the setting of acute hypoxia, pneumothorax, COPD, histoplasmosis -No further workup per cardiology at this time Time with Patient: Less than 30
--- NOTE | 2021-08-10 20:43 | P.PN ---
Subjective Progress Note Date: 08/10/21 Principal diagnosis: Pulmonary histoplasmosis Patient is a 56-year-old male with a past medical history significant for advanced COPD extensive emphysema in this patient who was recently diagnosed with extensive pneumonia secondary to pulmonary histoplasmosis on the basis of a positive serum as well as urine and vision and the patient has been treated with Sporanox, presenting back to the hospital with increasing shortness of breath and noticed to have left-sided pneumothorax requiring a chest tube placement. On today's evaluation that is 08/10/2021 the patient continues to be afebrile, the patient is breathing comfortably on a 5 L nasal cannula oxygen, the patient left-sided chest pain has decreased in intensity, the patient did have mild cough but not bringing up any sputum no vomiting abdominal pain no diarrhea Objective - Vital Signs Vital signs: Vital Signs Temp 98.4 F 08/10/21 12:00 Pulse 89 08/10/21 13:00 Resp 20 08/10/21 13:00 BP 92/57 08/10/21 13:00 Pulse Ox 94 L 08/10/21 13:00 Intake & Output 08/09/21 08/10/21 08/10/21 18:59 06:59 18:59 Intake Total 220 240 840 Output Total 945 1100 810 Balance -725 -860 30 Intake: IV 220 240 140 Sodium Chloride 0.9% 1, 220 240 140 000 ml @ 20 mls/hr IV . Q24H [facility] Rx#:[id number] Oral 700 Output: Urine 945 1100 810 Other: Voiding Method Indwelling Catheter Indwelling Catheter Indwelling Catheter ABP, PAP, CO, CI - Last Documented Arterial Blood Pressure 109/55 - Exam GENERAL DESCRIPTION: Middle-aged male lying in bed in no distress RESPIRATORY SYSTEM: Unlabored breathing , decreased breath sounds at bases HEART: S1 S2 regular rate and rhythm , ABDOMEN: Soft , no tenderness EXTREMITIES: No edema feet - Labs CBC & Chem 7: 08/10/21 11:05 08/10/21 11:05 Labs: Abnormal Lab Results - Last 24 Hours (Table) 08/10/21 08/10/21 Range/Units 11: 11:05 RBC 3.40 L (4.30-5.90) m/uL Hgb 9.1 L (13.0-17.5) gm/dL Hct 29.8 L (39.0-53.0) % MCHC 30.7 L (31.0-37.0) g/dL RDW 16.8 H (11.5-15.5) % Plt Count 525 H (150-450) k/uL Sodium 136 L (137-145) mmol/L Creatinine 0.54 L (0.66-1.25) mg/dL Glucose 133 H (74-99) mg/dL Assessment and Plan (1) Pneumonia Current Visit: No Status: Acute Code(s): J18.9 - PNEUMONIA, UNSPECIFIED ORGANISM SNOMED Code(s): 578732344 Plan: 1patient with COPD with extensive eczema and recent diagnosis with extensive histoplasma pneumonia on the basis of positive urine and serum antigen no admit to the hospital with large pneumothorax questionable related to the fall versus to his extensive emphysema in this patient who is status post chest tube placement patient this admission , the patient did have a fever 1 during this admission however no fever since then and cultures remains to be negative 2patient to continue with Sporanox 200 mg 3 times a day and continue supportive care Time with Patient: Less than 30
[2021-08-10] MEDS: ATORVASTATIN 40 MG TAB PO SCH (22:00)
[2021-08-11] MEDS: OXYMETAZOLINE 0.05% NASL SPRAY 1 SPRAY BOTTLE NASAL SCH ×3 (01:13→20:27)
[2021-08-11] MEDS: ALPRAZolam 0.25 MG TAB PO PRN ×3 (01:14→23:13)
[2021-08-11] MEDS: IPRATROPIUM-ALBUTEROL 3 ML NEB INHALATION PRN ×6 (05:08→23:24)
[2021-08-11 07:53] LABS: Anisocytosis Slight; Basophils % (A) 0 %; Eosinophils # (A) 0.4 k/uL (0-0.7); Eosinophils % (A) 6 %; HCT 28.9 % (39.0-53.0); HGB 8.6 gm/dL (13.0-17.5); Hypochromasia Marked; Lymphocytes # (A) 1.2 k/uL (1.0-4.8); Lymphocytes % (A) 18 %; MCH 26.9 pg (25.0-35.0); MCHC 29.9 g/dL (31.0-37.0); MCV 90.1 fL (80.0-100.0); Mean Platelet Volume 7.7; Monocytes # (A) 0.5 k/uL (0-1.0); Monocytes % (A) 7 %; Neutrophils # (A) 4.5 k/uL (1.3-7.7); Neutrophils % (A) 66 %; Platelet Count 539 k/uL (150-450); RBC 3.21 m/uL (4.30-5.90); RDW 16.6 % (11.5-15.5); WBC 6.8 k/uL (3.8-10.6)
[2021-08-11] MEDS: TRELEGY INHALATION SCH (07:59)
[2021-08-11 08:21] LABS: African American GFR (CKD) >90 (>60 ml/min/1.73 sqM); Anion Gap 7 mmol/L; Blood Urea Nitrogen 16 mg/dL (9-20); Calcium 8.5 mg/dL (8.4-10.2); Carbon Dioxide 26 mmol/L (22-30); Chloride 100 mmol/L (98-107); Glucose 121 mg/dL (74-99); Non-African American GFR(CKD) >90 (>60 ml/min/1.73 sqM); Potassium 4.4 mmol/L (3.5-5.1); Sodium 133 mmol/L (137-145)
--- NOTE | 2021-08-11 08:23 | XR ---
EXAMINATION TYPE: XR chest 1V portable DATE OF EXAM: 08/11/2021 COMPARISON: 08/10/2021 HISTORY: Tube placement TECHNIQUE: Single frontal view of the chest is obtained. FINDINGS: Heart size remains upper limits of normal with single lead pacemaker/defibrillator. Upper lung parenchymal opacity with hilar retraction redemonstrated. No visualized pneumothorax. Persistent right basilar opacity consistent with infiltrate and/or atelectasis slightly improved. Osseous struc tures are intact. IMPRESSION: 1. Bilateral pleural-parenchymal changes with no sizable pneumothorax. Pneumonia or neoplasm in the d ifferential diagnosis.
[2021-08-11] MEDS: ASPIRIN 81 MG PO SCH (08:38)
[2021-08-11] MEDS: carvediloL 6.25 MG TAB PO SCH ×2 (08:38→16:33)
[2021-08-11] MEDS: ITRACONAZOLE 100 MG CAP PO SCH ×3 (08:39→21:38)
[2021-08-11] MEDS: PANTOPRAZOLE 40 MG/10 ML VIAL IV SCH ×2 (08:39→20:27)
[2021-08-11] MEDS: ENOXAPARIN 40 MG/0.4 ML SYRINGE SQ SCH (08:39)
[2021-08-11] MEDS: NON FORMULARY DRUG (Buprenorphine Hcl/Naloxone Hcl [Suboxone 8 Mg-2 Mg Sl Film] 1 EACH Fil SUBLINGUAL SCH ×3 (08:42→21:37)
[2021-08-11] MEDS: NICOTINE 21MG/24HR PATCH TRANSDERM SCH (08:51)
--- NOTE | 2021-08-11 11:26 | P.PN ---
Subjective Progress Note Date: 08/11/21 Principal diagnosis: Acute hypoxic respiratory failure secondary to large secondary pneumothorax, severe COPD, and histoplasma pneumonia On 08/09/2021, the patient remains stable. He remains on O2 at 6 L of O2 by nasal cannula. No specific complaints. No chest pain. No shortness of breath. He was given a dose of Lasix yesterday 40 mg IV push and overall fluid balance is -3.0 L over the past 24 hours. Chest x-ray from today shows no evidence of any pneumothorax. There is also no evidence of any subcutaneous emphysema. Note that the Pleur-evac was disconnected from suction and the patient was on waterseal for the past 24 hours. No cardiac arrhythmias. The white cell count is at 7.6 with a hemoglobin of 8.8 and his sodium level is at 135 with a BUN of 18 and a creatinine of 0.5. The patient was on 6 L and I managed to cut him down to 3 L of O2 by nasal cannula. Tolerating diet. No nausea. No vomiting. No chest pain. No fever. No chills. Patient was reevaluated today on 08/10/2021, remains in the ICU, on 5 L nasal cannula, O2 saturation is 92-94%, patient is doing well, continues to have left- sided chest tube in place, the chest tube was clamped for the last 24 hours, early this morning the patient was very short of breath, he had a vigorous coug h, and he felt gush of air around the chest tube, and he felt much better after that gush of air. Tube remains clamped, chest x-ray this morning showed no evidence of pneumothorax. However considering his clinical history, I'm a bit reluctant to discontinue the chest tube at this point as he may have had a pneumothorax overnight, and he was able to clear it with his vigorous cough earlier today. Hence I'm going to keep the chest tube suction but on waterseal. Patient remains on Sporanox. His sputum cultures remain negative. Overall the patient is steadily improving. CBC is relatively normal electrolytes are normal renal profile is normal Reevaluated today on08/11/21, patient remains in the ICU, on 5 L nasal cannula, not in any distress. Continues to have left-sided chest tube in place, no evidence of air leak, hence I'm going to clamped the chest tube again today, and follow-up chest x-ray in 24 hours, consider removing the chest tube in 24 hours if there is no evidence of pneumothorax or air leak tomorrow morning. Chest x- ray today showed no specific changes in the bilateral pleural parenchymal changes, and overall the patient is about the same. He does feel much more co mfortable today compared to the last few days. CBC count is 6.8 hemoglobin is 8.6 electrolytes are normal renal profile is normal Objective - Vital Signs Vital signs: Vital Signs Temp 98.2 F 08/11/21 08:00 Pulse 88 08/11/21 10:00 Resp 24 08/11/21 10:00 BP 97/71 08/11/21 10:00 Pulse Ox 97 08/11/21 10:00 Intake & Output 08/10/21 08/11/21 08/11/21 18:59 06:59 18:59 Intake Total 1290 370 250 Output Total 1210 1575 200 Balance 80 -1205 50 Weight 57.7 kg Intake: IV 240 220 Sodium Chloride 0.9% 1, 240 220 000 ml @ 20 mls/hr IV . Q24H [facility] Rx#:[id number] Oral 1050 150 250 Output: Urine 1210 1575 200 Other: Voiding Method Indwelling Catheter Indwelling Catheter Indwelling Catheter ABP, PAP, CO, CI - Last Documented Arterial Blood Pressure 109/55 - Exam Physical Exam: Revealed a 56-year-old white male in no distress. Head: Atraumatic, normocephalic. HEENT:[Neck is supple.] [No neck masses.] [No thyromegaly.] [No JVD.] Chest: [Diminished breath sounds at the bases no rhonchi and no wheezes left- sided chest tube is noted. No air leak is noted Cardiac Exam: [Normal S1 and S2, no S3 gallop, no murmur.] Abdomen: [Soft, nontender, no megaly, no rebound, no guarding, normal bowel sounds.] Extremities: [No clubbing, no edema, no cyanosis.] Neurological Exam: [No focal neurologic deficit.] Alert and oriented 3. Psychiatric: Normal mood affect and normal mental status examination. Skin: No rashes. - Labs CBC & Chem 7: 08/11/21 07:15 08/11/21 07:15 Labs: Abnormal Lab Results - Last 24 Hours (Table) 08/10/21 08/10/21 08/11/21 Range/Units 11:05 11:05 07:15 RBC 3.40 L 3.21 L (4.30-5.90) m/uL Hgb 9.1 L 8.6 L (13.0-17.5) gm/dL Hct 29.8 L 28.9 L (39.0-53.0) % MCHC 30.7 L 29.9 L (31.0-37.0) g/dL RDW 16.8 H 16.6 H (11.5-15.5) % Plt Count 525 H 539 H (150-450) k/uL Sodium 136 L (137-145) mmol/L Creatinine 0.54 L (0.66-1.25) mg/dL Glucose 133 H (74-99) mg/dL 08/11/21 Range/Units 07:15 RBC (4.30-5.90) m/uL Hgb (13.0-17.5) gm/dL Hct (39.0-53.0) % MCHC (31.0-37.0) g/dL RDW (11.5-15.5) % Plt Count (150-450) k/uL Sodium 133 L (137-145) mmol/L Creatinine 0.54 L (0.66-1.25) mg/dL Glucose 121 H (74-99) mg/dL Assessment and Plan Assessment: Impression: Acute hypoxic respiratory failure secondary to secondary pneumothorax, bullous emphysema/COPD, and histoplasma pneumonia. Acute left sided pneumothorax requiring chest tube placement Advanced COPD with bullous emphysema Chronic systolic congestive heart failure and LV dysfunction history of non-ST elevation myocardial infarction Histoplasma pneumonia involving upper lobes Coronary artery disease and previous UT History of atrial fibrillation History of pacemaker implantation History of bilateral inguinal hernia repair Generalized anxiety disorder Recommendation: Continue to monitor the patient in the ICU for the next 24 hours. Continue oxygen, titrate accordingly. Continue chest tube in place, however I will clamp the chest tube today and address possibly removing it tomorrow. Continue to treat his fungal pneumonia/Sporanox. Continue bronchodilators. Continue GI and DVT prophylaxis Continue Dilaudid for pain Advanced diet as tolerated Ambulate, will follow Time with Patient: Less than 30
[2021-08-11 15:14] VITALS: BMI 21.2
--- NOTE | 2021-08-11 15:29 | P.PN ---
Subjective Progress Note Date: 08/11/21 Patient doing well today, no new complaints. His chest tube is clamped off, minimal air leak. Gen: awake, alert HEENT: normocephalic, atraumatic, good hearing acuity, moist mucous membranes Resp: Impaired air exchange, breathing comfortably with no accessory muscle use CVS: good distal perfusion x 4, GI: soft, NTTP, ND : no SPT, no CVAT, sung catheter not present MSK: no pitting edema, no clubbing Neuro: non-focal, moving all extremities Psych: cooperative, euthymic mood Assessment/plan: Acute hypoxic respiratory failure -Improving -Multifactorial: Secondary to pneumothorax, advanced COPD/emphysema, histoplasmosis pneumonia -Sided chest tube remains in place, pneumothorax appears to have resolved on chest x-ray today. -Chest will most likely remain for an additional day at least given his complicated history -Currently on 4 L, oxygen saturation in the mid 90s Histoplasmosis pneumonia -Improving, continue itraconazole -Patient further recommendations from infectious disease Advanced COPD with bullous emphysema -Continue bronchodilators -Supplemental oxygen to maintain saturation greater than 90% -Patient further recommendations from pulmonology Chronic systolic congestive heart failure and LV dysfunction history -Cardiology consulted, echocardiogram shows EF 30-35%, recommend conservative management from their perspective. As a patient not a candidate for any intervention at this time -Fluid restrictions Elevated cardiac troponin secondary to ACS versus demand ischemia -Resolving -Secondary type II PR in the setting of acute hypoxia, pneumothorax, COPD, histoplasmosis -No further workup per cardiology at this time Patient is full code DVT prophylaxis with enoxaparin Objective - Vital Signs Vital signs: Vital Signs Temp 98.3 F 08/11/21 12:00 Pulse 92 08/11/21 14:00 Resp 25 H 08/11/21 14:00 BP 102/67 08/11/21 14:00 Pulse Ox 96 08/11/21 14:00 Intake & Output 08/10/21 08/11/21 08/11/21 18:59 06:59 18:59 Intake Total 1290 370 250 Output Total 1210 1575 600 Balance 80 -1205 -350 Weight 57.7 kg 57.7 kg Intake: IV 240 220 Sodium Chloride 0.9% 1, 240 220 000 ml @ 20 mls/hr IV . Q24H [facility] Rx#:[id number] Oral 1050 150 250 Output: Urine 1210 1575 600 Other: Voiding Method Indwelling Catheter Indwelling Catheter Indwelling Catheter ABP, PAP, CO, CI - Last Documented Arterial Blood Pressure 109/55 - Labs CBC & Chem 7: 08/11/21 07:15 08/11/21 07:15 Labs: Abnormal Lab Results - Last 24 Hours (Table) 08/11/21 08/11/21 Range/Units 07:15 07:15 RBC 3.21 L (4.30-5.90) m/uL Hgb 8.6 L (13.0-17.5) gm/dL Hct 28.9 L (39.0-53.0) % MCHC 29.9 L (31.0-37.0) g/dL RDW 16.6 H (11.5-15.5) % Plt Count 539 H (150-450) k/uL Sodium 133 L (137-145) mmol/L Creatinine 0.54 L (0.66-1.25) mg/dL Glucose 121 H (74-99) mg/dL
--- NOTE | 2021-08-11 15:39 | PN ---
PROGRESS NOTE Mr. Li is doing a little bit better. He has no chest pain. His ejection fraction is low, but he has no anginal symptoms. He has a tension pneumothorax which is being addressed by Pulmonology. Cardiac-machado he is stable. He still has a chest tube in; not much drainage. S1-S2 heard normally. Lungs reveal diminished air entry. Abdomen is soft. Lower extremities reveal diminished pulses. Central nervous system is normal. Will continue current medication from a cardiac standpoint and I will see him as needed. MMODL / IJN: [id number] /
[2021-08-11] MEDS: SODIUM CHLORIDE 0.9% 1,000 ML IV SCH (16:32)
[2021-08-11 20:08] LABS: Anisocytosis Slight; HGB 8.7 gm/dL (13.0-17.5); Hypochromasia Marked; MCH 27.2 pg (25.0-35.0); MCHC 28.8 g/dL (31.0-37.0); MCV 94.1 fL (80.0-100.0); Mean Platelet Volume 7.8; Platelet Count 501 k/uL (150-450); RBC 3.19 m/uL (4.30-5.90); RDW 16.1 % (11.5-15.5); WBC 9.1 k/uL (3.8-10.6)
[2021-08-11] MEDS: ATORVASTATIN 40 MG TAB PO SCH (20:27)
--- NOTE | 2021-08-11 21:02 | P.PN ---
Subjective Progress Note Date: 08/11/21 Principal diagnosis: Pulmonary histoplasmosis Patient is a 56-year-old male with a past medical history significant for advanced COPD extensive emphysema in this patient who was recently diagnosed with extensive pneumonia secondary to pulmonary histoplasmosis on the basis of a positive serum as well as urine and vision and the patient has been treated with Sporanox, presenting back to the hospital with increasing shortness of breath and noticed to have left-sided pneumothorax requiring a chest tube placement. On today's evaluation that is 08/11/2021 the patient remains to be afebrile, the patient is breathing comfortably on a 5 L nasal cannula oxygen, the patient left-sided chest pain has decreased in intensity, the patient chest tube has been clamped, the patient did have mild cough but no sputum no vomiting abdominal pain no diarrhea Objective - Vital Signs Vital signs: Vital Signs Temp 98.2 F 08/11/21 08:00 Pulse 87 08/11/21 13:12 Resp 24 08/11/21 10:00 BP 97/71 08/11/21 10:00 Pulse Ox 97 08/11/21 10:00 Intake & Output 08/10/21 08/11/21 08/11/21 18:59 06:59 18:59 Intake Total 1290 370 250 Output Total 1210 1575 200 Balance 80 -1205 50 Weight 57.7 kg Intake: IV 240 220 Sodium Chloride 0.9% 1, 240 220 000 ml @ 20 mls/hr IV . Q24H [facility] Rx#:[id number] Oral 1050 150 250 Output: Urine 1210 1575 200 Other: Voiding Method Indwelling Catheter Indwelling Catheter Indwelling Catheter ABP, PAP, CO, CI - Last Documented Arterial Blood Pressure 109/55 - Exam GENERAL DESCRIPTION: Middle-aged male lying in bed in no distress RESPIRATORY SYSTEM: Unlabored breathing , decreased breath sounds at bases HEART: S1 S2 regular rate and rhythm , ABDOMEN: Soft , no tenderness EXTREMITIES: No edema feet - Labs CBC & Chem 7: 08/11/21 19:29 08/11/21 07:15 Labs: Abnormal Lab Results - Last 24 Hours (Table) 08/10/21 08/11/21 08/11/21 Range/Units 11:05 07:15 07:15 RBC 3.40 L 3.21 L (4.30-5.90) m/uL Hgb 9.1 L 8.6 L (13.0-17.5) gm/dL Hct 29.8 L 28.9 L (39.0-53.0) % MCHC 30.7 L 29.9 L (31.0-37.0) g/dL RDW 16.8 H 16.6 H (11.5-15.5) % Plt Count 525 H 539 H (150-450) k/uL Sodium 133 L (137-145) mmol/L Creatinine 0.54 L (0.66-1.25) mg/dL Glucose 121 H (74-99) mg/dL Assessment and Plan (1) Pneumonia Current Visit: No Status: Acute Code(s): J18.9 - PNEUMONIA, UNSPECIFIED ORGANISM SNOMED Code(s): 678132936 Plan: 1patient with COPD with extensive eczema and recent diagnosis with extensive histoplasma pneumonia on the basis of positive urine and serum antigen no admit to the hospital with large pneumothorax questionable related to the fall versus to his extensive emphysema in this patient who is status post chest tube placement patient this admission , the patient did have a fever 1 during this admission however no fever since then and cultures remains to be negative 2patient is currently being treated with Sporanox 200 mg 3 times a day which will be continued and monitor his clinical course closely Time with Patient: Less than 30
[2021-08-11] MEDS: HYDROmorphone 1 MG/ML 1 ML SYRINGE IVP PRN (23:13)
[2021-08-12] MEDS: SODIUM CHLORIDE 0.9% 1,000 ML IV SCH (00:20)
[2021-08-12] MEDS: carvediloL 6.25 MG TAB PO SCH ×2 (07:00→19:13)
[2021-08-12] MEDS: IPRATROPIUM-ALBUTEROL 3 ML NEB INHALATION PRN ×4 (07:50→20:15)
[2021-08-12] MEDS: TRELEGY INHALATION SCH (08:01)
[2021-08-12] MEDS: NICOTINE 21MG/24HR PATCH TRANSDERM SCH (08:09)
[2021-08-12] MEDS: ASPIRIN 81 MG PO SCH (08:09)
[2021-08-12] MEDS: ENOXAPARIN 40 MG/0.4 ML SYRINGE SQ SCH (08:09)
[2021-08-12] MEDS: PANTOPRAZOLE 40 MG/10 ML VIAL IV SCH ×2 (08:09→20:46)
[2021-08-12] MEDS: NON FORMULARY DRUG (Buprenorphine Hcl/Naloxone Hcl [Suboxone 8 Mg-2 Mg Sl Film] 1 EACH Fil SUBLINGUAL SCH ×3 (08:09→21:55)
[2021-08-12] MEDS: OXYMETAZOLINE 0.05% NASL SPRAY 1 SPRAY BOTTLE NASAL SCH ×3 (08:10→21:58)
[2021-08-12] MEDS: ITRACONAZOLE 100 MG CAP PO SCH ×3 (08:10→21:55)
--- NOTE | 2021-08-12 08:37 | XR ---
EXAMINATION TYPE: XR chest 1V portable DATE OF EXAM: 08/12/2021 COMPARISON: NONE HISTORY: Shortness of breath TECHNIQUE: Single frontal view of the chest is obtained. FINDINGS: There is severe pleural reflection seen now along the medial margin of the left lung base. Lucency along the apex could be related to large bulla although chest tube noted in position. This i s stable from prior exam. Cardiac device is seen in bilateral areas of scarring or consolidation and/ or mass are seen in the upper lobes greater on the right. Subsegmental infiltrate persists at the rig ht lung base. Heart size is enlarged. IMPRESSION: 1. Interval development of a pleural reflection along the medial margin the left lung base. Suspect a small pneumothorax. Chest tube is noted. 2. Bilateral airspace disease or mass stable.
--- NOTE | 2021-08-12 12:41 | P.PN ---
Subjective Progress Note Date: 08/12/21 Principal diagnosis: Acute hypoxic respiratory failure 56-year-old male with diagnosed histoplasmosis pneumonia who was admitted for acute hypoxic respiratory failure secondary to pneumothorax and advanced COPD/emphysema. Patient seen and examined in the ICU. He reports that his breathing has improved. He denies any chest pain at this time. Reports shortness of breath on exertion. He is on 4 L of supplemental oxygen via nasal cannula. Denies nausea, vomiting, chest pain or palpitations. Afebrile in the last 24 hours. Chest tube is clamped. Chest x-ray imaging report reviewed. Interval appearance of small pneumothorax noted. Objective - Vital Signs Vital signs: Vital Signs Temp 98.1 F 08/12/21 04:00 Pulse 93 08/12/21 11:36 Resp 22 08/12/21 08:00 BP 96/61 08/12/21 11:00 Pulse Ox 92 L 08/12/21 11:00 Intake & Output 08/11/21 08/12/21 08/12/21 18:59 06:59 18:59 Intake Total 450 750 360 Output Total 950 1535 695 Balance -500 -785 -335 Weight 57.7 kg 57 kg Intake: Oral 450 750 360 Output: Urine 950 1535 695 Other: Voiding Method Indwelling Catheter Indwelling Catheter Indwelling Catheter # Bowel Movements 1 1 ABP, PAP, CO, CI - Last Documented Arterial Blood Pressure 109/55 - Exam Constitutional: No acute distress, on room air HEENT: Pupils equally reactive to light, atraumatic, normocephalic. Lungs: Bilaterally diminished, no wheezing or crackles, no use of accessory muscles Cardiovascular: RRR, S1-S2 normal, no murmur, no peripheral edema Abdominal: Soft, nontender, no guarding, rebound or rigidity Extremities: No cyanosis or clubbing Neuro: No focal neurological signs alert - Labs CBC & Chem 7: 08/11/21 19:29 08/11/21 07:15 Labs: Abnormal Lab Results - Last 24 Hours (Table) 08/11/21 Range/Units 19:29 RBC 3.19 L (4.30-5.90) m/uL Hgb 8.7 L (13.0-17.5) gm/dL Hct 30.0 L (39.0-53.0) % MCHC 28.8 L (31.0-37.0) g/dL RDW 16.1 H (11.5-15.5) % Plt Count 501 H (150-450) k/uL Assessment and Plan Assessment: 1. Acute hypoxic respiratory failure - Secondary to pneumothorax, COPD/emphysema, histoplasmosis pneumonia - On 4 L supplemental oxygen via nasal - Chest tube in situ, pulmonology following. Chest x-ray report reviewed 2. Histoplasmosis pneumonia - Continue itraconazole - Infectious disease following 3. Advanced COPD with bullous emphysema - Continue breathing treatments and bronchodilators - Maintain O2 sats above 88% - Pulmonology is following as well 4. Chronic systolic congestive heart failure - Compensated - EF of 30-35% - Cardiology consulted, recommended conservative management - Monitor intake and output, continue fluid restrictions 5. Elevated troponin -Likely type II in setting of acute hypoxia - No further workup per cardiology at this time CODE STATUS is full code DVT prophylaxis with Lovenox Discussed with patient and RN
--- NOTE | 2021-08-12 13:00 | P.PN ---
Subjective Progress Note Date: 08/12/21 Principal diagnosis: Acute hypoxic respiratory failure secondary to large secondary pneumothorax, severe COPD, and histoplasma pneumonia The patient is seen today 08/12/2021 in follow-up in the intensive care unit. He is currently sitting up. Awake and alert in no acute distress. Continue to maintain O2 saturations in the 90s on 5 L/m per nasal cannula. Left-sided chest tube remains in place. Had been clamped since yesterday. Today's chest x-ray does reveal an interval development of pleural reflection along the medial margin of the left lung base. Suspect a small pneumothorax. Bilateral airspace disease or masses stable. The chest tube was unclamped and there is a positive leak again today. Sputum culture revealed no growth. He is status post 1 unit of packed red blood cells this admission. Current hemoglobin 8.7. No new labs today. He continues to work well with the incentive spirometer. He remains on Lovenox for DVT prophylaxis. Continued on home Trelegy, DuoNeb inhalations. He is continued on Sporanox. NicoDerm patch remains in place. Objective - Vital Signs Vital signs: Vital Signs Temp 98.1 F 08/12/21 04:00 Pulse 93 08/12/21 11:36 Resp 22 08/12/21 08:00 BP 96/61 08/12/21 11:00 Pulse Ox 92 L 08/12/21 11:00 Intake & Output 08/11/21 08/12/21 08/12/21 18:59 06:59 18:59 Intake Total 450 750 360 Output Total 950 1535 695 Balance -500 -785 -335 Weight 57.7 kg 57 kg Intake: Oral 450 750 360 Output: Urine 950 1535 695 Other: Voiding Method Indwelling Catheter Indwelling Catheter Indwelling Catheter # Bowel Movements 1 1 ABP, PAP, CO, CI - Last Documented Arterial Blood Pressure 109/55 - Exam Gen. appearance: Very pleasant 56-year-old frail, cachectic male patient with a body mass index of 20.9 currently on 5 L of O2 by nasal cannula Head exam was generally normal. There was no scleral icterus or corneal arcus. Mucous membranes were moist. Neck was supple and without jugular venous distension, thyromegaly, or carotid bruits. Carotids were easily palpable bilaterally. There was no adenopathy. There is minimal evidence of subcutaneous emphysema over the neck area and this has improved on today's evaluation Lungs sounds are diminished and the patient has evidence of subcutaneous emphysema over the anterior chest. The patient also has a left-sided chest tube which is a 32-Azerbaijani chest tube with positive air leak. No significant fluid output from the left hemithorax. Scattered rhonchi. No significant wheezing. Cardiac exam revealed the PMI to be normally situated and sized. The rhythm was regular and no extrasystoles were noted during several minutes of auscultation. The first and second heart sounds were normal and physiologic splitting of the second heart sound was noted. There were no murmurs, rubs, clicks, or gallops. Patient has an AICD pocket over the left anterior chest area. Abdominal exam revealed normal bowel sounds. The abdomen was soft, non-tender, and without masses, organomegaly, or appreciable enlargement of the abdominal aorta. Examination of the extremities revealed easily palpable radial, femoral and pedal pulses. There was no cyanosis, clubbing or edema. Examination of the skin revealed no evidence of significant rashes, suspicious appearing nevi or other concerning lesions. Neurologically the patient awake and alert and following commands and answering questions. Generalized weakness no 4 extremities, no focal neurological deficits. - Labs CBC & Chem 7: 08/11/21 19:29 08/11/21 07:15 Labs: Abnormal Lab Results - Last 24 Hours (Table) 08/11/21 Range/Units 19:29 RBC 3.19 L (4.30-5.90) m/uL Hgb 8.7 L (13.0-17.5) gm/dL Hct 30.0 L (39.0-53.0) % MCHC 28.8 L (31.0-37.0) g/dL RDW 16.1 H (11.5-15.5) % Plt Count 501 H (150-450) k/uL Assessment and Plan Assessment: 1 acute hypoxic respiratory failure secondary to a large secondary pneumothorax, a complication of bullous emphysema and pneumonia , status post insertion of a large left-sided chest tube, 32-Azerbaijani, with reexpansion of the left lung without any complications. The patient was extubated on 07/06/2021 and cu rrently is on 5 L of O2 by nasal cannula 2 large left-sided neck and a pneumothorax, post chest tube insertion and the patient currently is a 32-Azerbaijani chest tube in place with adequate expansion of the left lung. The chest tube had been clamped yesterday on 08/11/2021. Unclamped today and there is still an air leak. Chest x-ray reveals interval development of a pleural reflection along the medial margin of the left base. Suspect a small pneumothorax. 3 advanced COPD with bullous changes in the upper lobes bilaterally 4 acute non-ST segment elevation myocardial infarction with secondary hypotension secondary to above, currently the patient is off pressors.. The patient is known to have chronic systolic heart failure with impaired left ventricular ejection fraction. 5 Histoplasma pneumonia with upper lobe predominance. The patient had bilateral upper lobe pneumonia status post recent bronchoscopy with BAL on 06/24/2021, with negative BAL and viral cultures, COVID-19 PCR was negative. Patient is status post repeat bronchoscopy with BAL on 07/07/2021 with transbronchial biopsies of the right middle lobe, brushings and BAL of the right middle lobe, transbronchial biopsies were consistent with organizing pneumonia, BAL cultures negative thus far. Meanwhile, the patient had positive histoplasma antibody titers. Histoplasma serum antigen came back positive. 6 coronary artery disease with previous myocardial infarction 7 history of atrial fibrillation 8 history of pacemaker/SB placement 9 history of CHF with systolic heart failure with an ejection fraction of 3035% 10 history of bilateral inguinal hernia repair 11 history of prescription narcotic abuse currently on Suboxone 12 chronic anxiety 13 chronic and ongoing tobacco dependence Plan The patient was seen and evaluated Chest x-ray reviewed Recurrent small left pneumothorax along the pleural reflection left base Chest tube unclamped into wall suction again, positive air leak Consult cardiothoracic surgeon Continue bronchodilators, Sporanox Continue to work with the incentive spirometer Increase his activity as tolerated Again educated regarding the importance of complete smoking cessation NicoDerm patch remains in place Titrate the FiO2 as tolerated We will continue to follow I have personally seen and examined the patient, performed the documentation and the assessment and plan as written. Number of minutes spent on the visit: 10.
--- NOTE | 2021-08-12 13:32 | P.GSCN ---
History of Present Illness Consult date: 08/12/21 Reason for Consult: Continuous left-sided chest tube leak Requesting physician: Izabela Hickman History of present illness: This is a 56-year-old gentleman who follows until outpatient basis with Dr. Garcia for primary care and Dr. Lundberg for pulmonology. Previous medical history includes severe COPD on home oxygen, pneumonia/sepsis, histoplasmosis infection, coronary artery disease with myocardial infarction status post stenting, paroxysmal atrial fibrillation, chronic systolic heart failure status post ICD placement, GI bleed, previous tobacco dependence, narcotic dependence on Suboxone, and marijuana use. He is vaccinated against covid. Over the last month and half or so the patient has had repeated admissions with shortness of breath, respiratory failure, pneumonia. This admission he presented to [facility] emergency room on 08/04/2021 with left-sided chest pain and significant shortness of breath. He was immediately intubated and quickly after was found to have a left-sided pneumothorax. Chest tube was placed in [place] and the patient was transferred to [facility] for further evaluation and monitoring, and he was admitted to the ICU. His chest tube was not felt to be functioning and was replaced on 08/05/[address] Lundberg. He was extubated 08/06/2021. Over the next several days the patient has had his chest tube clamped several times to assess readiness to be discontinued, however with each unclamping the patient has air leak present. Due to the inability to resolve the air leak and remove the chest tube consultation was placed to cardiothoracic surgery for recommendations. Review of Systems Review of systems was completed it was negative except as noted - Cardiovascular Reports as per HPI, Reports chest pain, Reports shortness of breath - Respiratory Reports as per HPI, Reports dyspnea Past Medical History Past Medical History: Atrial Fibrillation, Coronary Artery Disease (CAD), Chest Pain / Angina, Heart Failure, COPD, Myocardial Infarction (HI) Additional Past Medical History / Comment(s): Pt recently sent from [facility] ER to [facility] for lower GI bleed/he states he had endoscopies and was told he had an ulcer/polyps and hemorrhoids, pt also recently admitted to [facility] and treated for double pneumonia/sepsis/histoplasmosis infection and was sent home with home oxygen. Other hx: Severe COPD, past norco addiction and is on suboxone past 4 year and it is being weaned down, MIs x3. Last Myocardial Infarction Date:: 2008 History of Any Multi-Drug Resistant Organisms: None Reported Past Surgical History: AICD, Heart Catheterization, Heart Catheterization With Stent, Hernia Repair, Orthopedic Surgery, Pacemaker Additional Past Surgical History / Comment(s): PCI with stents, AICD/pacer, EGD/colonoscopy, bronchoscopies x2, bilateral inguinal hernia repairs, bilateral carpal tunnel releases. Past Anesthesia/Blood Transfusion Reactions: No Reported Reaction Date of Last Stent Placement:: 2010 Type of Cardiac Device: Permanent Pacemaker, AICD Device Placement Date:: 2008 Past Psychological History: No Psychological Hx Reported Additional Psychological History / Comment(s): Pt resides with his spouse. He has home oxygen. Smoking Status: Former smoker Past Alcohol Use History: None Reported Additional Past Alcohol Use History / Comment(s): Pt started smoking in 1978 and had been cutting back then quit end of June 2021 Past Drug Use History: None Reported Additional Drug Use History / Comment(s): Marijuana at night 6 nights a week to sleep - Past Family History Father Family Medical History: No Reported History Additional Family Medical History / Comment(s): Father pt believes d/t his spouses passing. Mother Family Medical History: Myocardial Infarction (HI) Additional Family Medical History / Comment(s): Mother of a massive HI at the age of 53yrs. Medications and Allergies Home Medications Medication Instructions Recorded Confirmed Type Buprenorphine HCl/Naloxone HCl 0.5 film SL TID PRN 03/13/15 08/04/21 History [Suboxone 8 mg-2 mg Sl Film] Aspirin [Adult Low Dose Aspirin EC] 81 tab PO DAILY 03/28/17 08/04/21 History Albuterol Inhaler [Ventolin Hfa 2 puff INHALATION RT-QID PRN 06/19/21 08/04/21 History Inhaler] Atorvastatin [Lipitor] 40 mg PO HS 06/19/21 08/04/21 History Fluticasone/Umeclidin/Vilanter 1 puff INHALATION RT-DAILY 06/19/21 08/04/21 History [Trelegy Ellipta 200-62.5-25] Nicotine 21Mg/24Hr Patch [Habitrol] 1 patch TRANSDERM DAILY 06/19/21 08/04/21 History carvediloL [Coreg] 3.125 mg PO HS 06/29/21 08/04/21 History Acetaminophen Tab [Tylenol] 650 mg PO Q6HR PRN tab 07/03/21 08/04/21 Rx Furosemide [Lasix] 60 mg PO DAILY #45 tab 07/31/21 08/04/21 Rx Itraconazole [Sporanox] 200 mg PO TID 30 Days #120 capsule 07/31/21 08/04/21 Rx Pantoprazole [Protonix] 40 mg PO DAILY@1200 08/04/21 08/04/21 History Sodium Chloride 0.65% Nasal [Deep 1 spray EA NOSTRIL Q4HR PRN 08/04/21 08/04/21 History Sea (Saline)] Allergies Allergy/AdvReac Type Severity Reaction Status Date / Time clopidogrel bisulfate Allergy Anaphylaxis Verified 08/04/21 21:41 [From Plavix] Surgical - Exam Vital Signs Temp Pulse Resp BP Pulse Ox 97.6 F 82 22 91/60 100 08/04/21 20:23 08/04/21 20:23 08/04/21 20:23 08/04/21 20:23 08/04/21 20:23 CONSTITUTIONAL: Awake and alert, appears comfortable, cooperative, well- developed, well-nourished, no pain, no acute distress EYES: Pupils equal, round, reactive to light, normal ocular movement ENT: Moist mucous membranes without oral lesions present NECK: No masses, no bruits, trachea midline RESPIRATORY: Lungs sounds diminished bilaterally, coarse breath sounds in the left lung base. Respirations even, nonlabored. Currently on 5 L high flow nasal cannula with oxygen saturation 96%. Able to achieve 1000 mL on incentive spirometry. Strong cough. CARDIOVASCULAR: S1, S2 present. Regular rate and rhythm, sinus rhythm on telemetry. Palpable peripheral pulses bilaterally. No edema present. No calf pain or tenderness noted. GASTROINTESTINAL: Abdomen soft, nontender, nondistended without masses or organomegaly noted. There is no rebound or guarding present. Active bowel sounds present 4 quadrants. GENITOURINARY: Bola[place] present, draining clear yellow urine INTEGUMENTARY: Skin is warm and dry with evidence of good perfusion. NEUROLOGIC: Cranial nerves II through XII intact, normal coordination, no obvious motor or sensory deficits, speech is normal MUSKULOSKELETAL: Able to move all extremities, strength equal bilaterally, normal posture PSYCHIATRIC: Alert and oriented to person place and time, appropriate affect, intact judgment and insight Results - Labs 08/11/21 19:29 08/11/21 07:15 Abnormal Lab Results - Last 24 Hours (Table) 08/11/21 Range/Units 19:29 RBC 3.19 L (4.30-5.90) m/uL Hgb 8.7 L (13.0-17.5) gm/dL Hct 30.0 L (39.0-53.0) % MCHC 28.8 L (31.0-37.0) g/dL RDW 16.1 H (11.5-15.5) % Plt Count 501 H (150-450) k/uL - Imaging Chest x-ray: report reviewed, image reviewed CT scan - chest: report reviewed, image reviewed Assessment and Plan Assessment: 1. Severe COPD with significant bullous emphysema on home oxygen, pneumothorax on the left post chest tube placement 2. Pneumonia/sepsis 3. History of histoplasmosis infection 4. History of coronary artery disease with myocardial infarction status post stenting 5. Paroxysmal atrial fibrillation 6. Chronic systolic heart failure status post ICD placement 7. GI bleed 8. Previous tobacco dependence 8. Narcotic dependence on Suboxone 9. Marijuana use Plan: The patient was seen and examined at the bedside with Dr. Gallardo. Chart/diagnostics reviewed. The patient is in no acute distress. Will place chest tube to water seal in the morning and repeat chest x-ray. When no pneumothorax present may consider discharging patient home with heimlich valve until air leak resolves. Encourage incentive spirometry use. Medical management of other comorbidities per primary service. More recommendations to follow. Thank you for this consult. We will follow along with you. I have personally seen and examined the patient, performed the documentation and the assessment and plan as written. Number of minutes spent on the visit: 30. CLAUDIA Rojo The patient is a 56 year old male with a history of histoplasmosis who presented to an outside hospital. He was found to have a spontaneous right PTX. He currently has a right-sided chest tube. CXR without evidence of significant PTX. Small, intermittent air leak is noted. Plan to transition to water seal in the morning. Additional recommendations to follow. I have personally seen and examined the patient, reviewed the documentation and the assessment and plan as written. Number of minutes spent on the visit: 45. Russ Gallardo MD
[2021-08-12] MEDS: ALPRAZolam 0.25 MG TAB PO PRN (14:37)
[2021-08-12] MEDS: ATORVASTATIN 40 MG TAB PO SCH (20:46)
[2021-08-13] MEDS: SODIUM CHLORIDE 0.9% 1,000 ML IV SCH ×2 (00:21→23:37)
[2021-08-13] MEDS: HYDROmorphone 1 MG/ML 1 ML SYRINGE IVP PRN ×2 (00:21→23:30)
[2021-08-13] MEDS: ALPRAZolam 0.25 MG TAB PO PRN ×3 (00:21→23:30)
[2021-08-13] MEDS: IPRATROPIUM-ALBUTEROL 3 ML NEB INHALATION PRN ×5 (00:52→20:04)
[2021-08-13] MEDS: carvediloL 6.25 MG TAB PO SCH ×2 (07:56→18:43)
[2021-08-13] MEDS: ITRACONAZOLE 100 MG CAP PO SCH ×3 (07:56→22:19)
[2021-08-13] MEDS: PANTOPRAZOLE 40 MG/10 ML VIAL IV SCH ×2 (07:56→20:39)
--- NOTE | 2021-08-13 07:58 | XR ---
EXAMINATION TYPE: XR chest 2V DATE OF EXAM: 08/13/2021 COMPARISON: 08/12/2021 TECHNIQUE: PA and lateral views submitted. HISTORY: Pneumothorax FINDINGS: No sizable pneumothorax on today's exam. Areas of irregular consolidation and interstitial pattern pe rsists unchanged. Heart size unchanged. COPD suspected. PICC line and cardiac device stable. No sizable pleural effusion. IMPRESSION: 1. No sizable pneumothorax on today's exam. 2. Persistent bilateral airspace disease correlate for scarring, pneumonia or neoplasm.
[2021-08-13] MEDS: NICOTINE 21MG/24HR PATCH TRANSDERM SCH (07:59)
[2021-08-13] MEDS: ASPIRIN 81 MG PO SCH (07:59)
[2021-08-13] MEDS: ENOXAPARIN 40 MG/0.4 ML SYRINGE SQ SCH (07:59)
[2021-08-13] MEDS: NON FORMULARY DRUG (Buprenorphine Hcl/Naloxone Hcl [Suboxone 8 Mg-2 Mg Sl Film] 1 EACH Fil SUBLINGUAL SCH ×3 (08:08→22:19)
[2021-08-13] MEDS: TRELEGY INHALATION SCH (08:43)
--- NOTE | 2021-08-13 08:51 | P.PN ---
Subjective Progress Note Date: 08/13/21 Principal diagnosis: Severe COPD with significant bullous emphysema on home oxygen, pneumothorax on the left post chest tube placement, pneumonia/sepsis. Previous medical history of histoplasmosis infection, coronary artery disease with myocardial infarction status post stenting, paroxysmal atrial fibrillation on no anticoagulation outpatient, chronic systolic heart failure status post ICD placement, GI bleed, previous tobacco dependence with recent cessation, narcotic dependence on Suboxone. marijuana use The patient was seen and examined this point sitting up in a recliner in the intensive care unit in no acute distress. Does complain of minimal pain at chest tube site, denies increased shortness of breath. Remains on 4 L nasal cannula with oxygen saturation in the high 90s. Able to achieve 1250 mL on his incentive spirometry. Left pleural chest tube remains, was placed to waterseal at midnight, a chest x-ray this morning reveals no pneumothorax, there is no air leak present in the chest tube this morning. Objective - Vital Signs Vital signs: Vital Signs Temp 97.6 F 08/13/21 04:00 Pulse 85 08/13/21 07:00 Resp 20 08/13/21 07:00 BP 115/69 08/13/21 07:00 Pulse Ox 95 08/13/21 07:00 Intake & Output 08/12/21 08/13/21 08/13/21 18:59 06:59 18:59 Intake Total 1800 660 240 Output Total 1470 1800 Balance 330 -1140 240 Weight 57 kg Intake: Oral 1800 660 240 Output: Urine 1470 1800 Other: Voiding Method Urinal Urinal # Voids 1 0 # Bowel Movements 1 ABP, PAP, CO, CI - Last Documented Arterial Blood Pressure 109/55 - Exam CONSTITUTIONAL: Appears comfortable, cooperative, no acute distress RESPIRATORY: Lungs sounds diminished bilaterally. Respirations even, nonlabored. Currently on 4 L nasal cannula with oxygen saturation 97%. Able to achieve 1250 mL on incentive spirometry. Strong cough. CARDIOVASCULAR: S1, S2 present. Regular rate and rhythm, sinus rhythm on telemetry. Palpable peripheral pulses bilaterally. No edema present. No calf pain or tenderness noted GASTROINTESTINAL: Abdomen soft, nontender, nondistended. Active bowel sounds present 4 quadrants. Tolerating diet GENITOURINARY: Continues to void clear, yellow urine INTEGUMENTARY: Skin is warm and dry with evidence of good perfusion NEUROLOGIC: Cranial nerves II through XII intact MUSKULOSKELETAL: Able to move all extremities, strength equal bilaterally, gait normal PSYCHIATRIC: Alert and oriented to person place and time, appropriate affect, intact judgment and insight INVASIVE LINES AND TUBES: Left pleural chest tube present to water seal since midnight, no air leaks present, positive tidaling, 20 mL serosanguineous drainage in the last 24 hours although patient does have drainage around the chest tube site - Labs CBC & Chem 7: 08/11/21 19:29 08/11/21 07:15 Labs: Abnormal Lab Results - Last 24 Hours (Table) 08/04/21 Range/Units 21:20 Crossmatch See Detail Assessment and Plan Assessment: 1. Severe COPD with significant bullous emphysema on home oxygen, pneumothorax on the left post chest tube placement 2. Pneumonia/sepsis 3. History of histoplasmosis infection 4. History of coronary artery disease with myocardial infarction status post stenting 5. Paroxysmal atrial fibrillation 6. Chronic systolic heart failure status post ICD placement 7. GI bleed 8. Previous tobacco dependence 8. Narcotic dependence on Suboxone 9. Marijuana use Plan: 1. Continue chest tube to water seal for now 2. Wean O2 as tolerated. Encourage incentive spirometry use 3. Increase activity as tolerated 4. Encourage continued smoking cessation 5. Medical management of other comorbidities per primary service 6. More recommendations to follow
--- NOTE | 2021-08-13 12:39 | P.PN ---
Subjective 56-year-old male with diagnosed histoplasmosis pneumonia who was admitted for acute hypoxic respiratory failure secondary to pneumothorax and advanced COPD/emphysema. 08/12/21- Patient seen and examined in the ICU. He reports that his breathing has improved. He denies any chest pain at this time. Reports shortness of breath on exertion. He is on 4 L of supplemental oxygen via nasal cannula. Denies nausea, vomiting, chest pain or palpitations. Afebrile in the last 24 hours. Chest tube is clamped. Chest x-ray imaging report reviewed. Interval appearance of small pneumothorax noted. 08/13/21 - overnight course discussed with [employer]. Patient has been seen by cardiac thoracic surgery. Left pleural chest tube in place. Chest x-ray from this morning shows no pneumothorax and there was no air leak isn't in the chest tube. Patient is on 4 L nasal cannula supplemental oxygen. He reports feeling much better. Denies chest pain, shortness of breath or palpitations. Afebrile. Objective - Vital Signs Vital signs: Vital Signs Temp 98.4 F 08/13/21 08:00 Pulse 75 08/13/21 11:00 Resp 17 08/13/21 11:00 BP 83/55 08/13/21 11:00 Pulse Ox 96 08/13/21 11:00 Intake & Output 08/12/21 08/13/21 08/13/21 18:59 06:59 18:59 Intake Total 1800 660 600 Output Total 1470 1800 0 Balance 330 -1140 600 Weight 57 kg Intake: Oral 1800 660 600 Output: Urine 1470 1800 0 Other: Voiding Method Urinal Urinal Urinal # Voids 1 0 # Bowel Movements 1 ABP, PAP, CO, CI - Last Documented Arterial Blood Pressure 109/55 - Exam Constitutional: No acute distress, 4 L supplemental oxygen HEENT: Pupils equally reactive to light, atraumatic, normocephalic. Lungs: Bilaterally diminished, no wheezing or crackles, no use of accessory muscles Cardiovascular: RRR, S1-S2 normal, no murmur, no peripheral edema Abdominal: Soft, nontender, no guarding, rebound or rigidity Extremities: No cyanosis or clubbing Neuro: No focal neurological signs alert - Labs CBC & Chem 7: 08/11/21 19:29 08/11/21 07:15 Labs: Abnormal Lab Results - Last 24 Hours (Table) 08/04/21 Range/Units 21:20 Crossmatch See Detail Assessment and Plan Assessment: 1. Acute hypoxic respiratory failure - Secondary to pneumothorax, COPD/emphysema, histoplasmosis pneumonia - On 4 L supplemental oxygen via nasal - Chest tube in situ, pulmonology following. Chest x-ray report reviewed -Cardiac thoracic surgery consulted by pulmonology, no air leak present today. Continue chest tube to waterseal. Wean O2 as tolerated. Continue incentive spirometry. 2. Histoplasmosis pneumonia - Continue itraconazole - Infectious disease following 3. Advanced COPD with bullous emphysema - Continue breathing treatments and bronchodilators - Maintain O2 sats above 88% - Pulmonology is following as well 4. Chronic systolic congestive heart failure - Compensated - EF of 30-35% - Cardiology consulted, recommended conservative management - Monitor intake and output, continue fluid restrictions 5. Elevated troponin -Likely type II in setting of acute hypoxia - No further workup per cardiology at this time CODE STATUS is full code DVT prophylaxis with Lovenox Discussed with patient and RN
--- NOTE | 2021-08-13 13:48 | P.PN ---
Subjective Progress Note Date: 08/13/21 Principal diagnosis: Acute hypoxic respiratory failure secondary to large secondary pneumothorax, severe COPD, and histoplasma pneumonia On 08/09/2021, the patient remains stable. He remains on O2 at 6 L of O2 by nasal cannula. No specific complaints. No chest pain. No shortness of breath. He was given a dose of Lasix yesterday 40 mg IV push and overall fluid balance is -3.0 L over the past 24 hours. Chest x-ray from today shows no evidence of any pneumothorax. There is also no evidence of any subcutaneous emphysema. Note that the Pleur-evac was disconnected from suction and the patient was on waterseal for the past 24 hours. No cardiac arrhythmias. The white cell count is at 7.6 with a hemoglobin of 8.8 and his sodium level is at 135 with a BUN of 18 and a creatinine of 0.5. The patient was on 6 L and I managed to cut him down to 3 L of O2 by nasal cannula. Tolerating diet. No nausea. No vomiting. No chest pain. No fever. No chills. Patient was reevaluated today on 08/10/2021, remains in the ICU, on 5 L nasal cannula, O2 saturation is 92-94%, patient is doing well, continues to have left- sided chest tube in place, the chest tube was clamped for the last 24 hours, early this morning the patient was very short of breath, he had a vigorous coug h, and he felt gush of air around the chest tube, and he felt much better after that gush of air. Tube remains clamped, chest x-ray this morning showed no evidence of pneumothorax. However considering his clinical history, I'm a bit reluctant to discontinue the chest tube at this point as he may have had a pneumothorax overnight, and he was able to clear it with his vigorous cough earlier today. Hence I'm going to keep the chest tube suction but on waterseal. Patient remains on Sporanox. His sputum cultures remain negative. Overall the patient is steadily improving. CBC is relatively normal electrolytes are normal renal profile is normal Reevaluated today on08/11/21, patient remains in the ICU, on 5 L nasal cannula, not in any distress. Continues to have left-sided chest tube in place, no evidence of air leak, hence I'm going to clamped the chest tube again today, and follow-up chest x-ray in 24 hours, consider removing the chest tube in 24 hours if there is no evidence of pneumothorax or air leak tomorrow morning. Chest x- ray today showed no specific changes in the bilateral pleural parenchymal changes, and overall the patient is about the same. He does feel much more co mfortable today compared to the last few days. CBC count is 6.8 hemoglobin is 8.6 electrolytes are normal renal profile is normal Reevaluated today on 08/13/21, patient is basically about the same. Yesterday I consulted thoracic surgery on the patient because of his persistent left-sided pneumothorax and persistent air leak. This morning the patient continues to have the chest tube in place, it was placed at waterseal at midnight, chest x- ray shows complete expansion of the left lung, and on visualization of the chest tube, he has intermittent tiny leak. Nonetheless the chest tube remains on waterseal. CBC is normal WBC count is 9.1 hemoglobin is 8.7. Objective - Vital Signs Vital signs: Vital Signs Temp 98.4 F 08/13/21 08:00 Pulse 84 08/13/21 13:25 Resp 18 08/13/21 13:25 BP 83/55 08/13/21 11:00 Pulse Ox 96 08/13/21 11:00 Intake & Output 08/12/21 08/13/21 08/13/21 18:59 06:59 18:59 Intake Total 1800 660 600 Output Total 1470 1800 0 Balance 330 -1140 600 Weight 57 kg Intake: Oral 1800 660 600 Output: Urine 1470 1800 0 Other: Voiding Method Urinal Urinal Urinal # Voids 1 0 # Bowel Movements 1 ABP, PAP, CO, CI - Last Documented Arterial Blood Pressure 109/55 - Exam Physical Exam: Revealed a 56-year-old white male in no distress. Head: Atraumatic, normocephalic. HEENT:[Neck is supple.] [No neck masses.] [No thyromegaly.] [No JVD.] Chest: [Diminished breath sounds at the bases no rhonchi and no wheezes left-si ded chest tube is noted. Cardiac Exam: [Normal S1 and S2, no S3 gallop, no murmur.] Abdomen: [Soft, nontender, no megaly, no rebound, no guarding, normal bowel sounds.] Extremities: [No clubbing, no edema, no cyanosis.] Neurological Exam: [No focal neurologic deficit.] Alert and oriented 3. Psychiatric: Normal mood affect and normal mental status examination. Skin: No rashes. - Labs CBC & Chem 7: 08/11/21 19:29 08/11/21 07:15 Labs: Abnormal Lab Results - Last 24 Hours (Table) 08/04/21 Range/Units 21:20 Crossmatch See Detail Assessment and Plan Assessment: Impression: Acute hypoxic respiratory failure secondary to secondary pneumothorax, bullous emphysema/COPD, and histoplasma pneumonia. Acute left sided pneumothorax requiring chest tube placement Advanced COPD with bullous emphysema Chronic systolic congestive heart failure and LV dysfunction history of non-ST elevation myocardial infarction Histoplasma pneumonia involving upper lobes Coronary artery disease and previous IN History of atrial fibrillation History of pacemaker implantation History of bilateral inguinal hernia repair Generalized anxiety disorder Recommendation: Continue to monitor the patient in the ICU for now. Incidentally removing the chest tube in the next 24 hours. Continue oxygen, titrate accordingly. Continue to treat his fungal pneumonia/Sporanox. Continue bronchodilators. Continue GI and DVT prophylaxis Continue Dilaudid for pain Advanced diet as tolerated Ambulate, will follow Time with Patient: Less than 30
--- NOTE | 2021-08-13 17:47 | P.PN ---
Subjective Progress Note Date: 08/12/21 Principal diagnosis: Pulmonary histoplasmosis Patient is a 56-year-old male with a past medical history significant for advanced COPD extensive emphysema in this patient who was recently diagnosed with extensive pneumonia secondary to pulmonary histoplasmosis on the basis of a positive serum as well as urine and vision and the patient has been treated with Sporanox, presenting back to the hospital with increasing shortness of breath and noticed to have left-sided pneumothorax requiring a chest tube placement. On today's evaluation that is 08/12/2021 the patient is afebrile, the patient is breathing comfortably down to 4 L nasal cannula oxygen, the patient left-sided chest pain has decreased in intensity, the patient did have mild cough but no sputum production, no vomiting abdominal pain no diarrhea Objective - Vital Signs Vital signs: Vital Signs Temp 98.1 F 08/12/21 04:00 Pulse 93 08/12/21 11:36 Resp 22 08/12/21 08:00 BP 96/61 08/12/21 11:00 Pulse Ox 92 L 08/12/21 11:00 Intake & Output 08/11/21 08/12/21 08/12/21 18:59 06:59 18:59 Intake Total 450 750 360 Output Total 950 1535 695 Balance -500 -785 -335 Weight 57.7 kg 57 kg Intake: Oral 450 750 360 Output: Urine 950 1535 695 Other: Voiding Method Indwelling Catheter Indwelling Catheter Indwelling Catheter # Bowel Movements 1 1 ABP, PAP, CO, CI - Last Documented Arterial Blood Pressure 109/55 - Exam GENERAL DESCRIPTION: Middle-aged male lying in bed in no distress RESPIRATORY SYSTEM: Unlabored breathing , decreased breath sounds at bases HEART: S1 S2 regular rate and rhythm , ABDOMEN: Soft , no tenderness EXTREMITIES: No edema feet - Labs CBC & Chem 7: 08/11/21 19:29 08/11/21 07:15 Labs: Abnormal Lab Results - Last 24 Hours (Table) 08/11/21 Range/Units 19:29 RBC 3.19 L (4.30-5.90) m/uL Hgb 8.7 L (13.0-17.5) gm/dL Hct 30.0 L (39.0-53.0) % MCHC 28.8 L (31.0-37.0) g/dL RDW 16.1 H (11.5-15.5) % Plt Count 501 H (150-450) k/uL Assessment and Plan (1) Pneumonia Current Visit: No Status: Acute Code(s): J18.9 - PNEUMONIA, UNSPECIFIED ORGANISM SNOMED Code(s): 963218992 Plan: 1patient with COPD with extensive emphysema and recent diagnosis of histoplasma pneumonia on the basis of positive urine and serum antigen no admit to the hospital with large pneumothorax questionable related to the fall versus to his extensive emphysema in this patient who is status post chest tube placement this admission , the patient did have a fever 1 during this admission however no fever since then and blood stained sputum cultures remains to be negative 2patient to continue with Sporanox 200 mg 3 times a day and monitor his clinical course closely Time with Patient: Less than 30
--- NOTE | 2021-08-13 17:48 | P.PN ---
Subjective Progress Note Date: 08/13/21 Principal diagnosis: Pulmonary histoplasmosis Patient is a 56-year-old male with a past medical history significant for advanced COPD extensive emphysema in this patient who was recently diagnosed with extensive pneumonia secondary to pulmonary histoplasmosis on the basis of a positive serum as well as urine and vision and the patient has been treated with Sporanox, presenting back to the hospital with increasing shortness of breath and noticed to have left-sided pneumothorax requiring a chest tube placement. On today's evaluation that is 08/13/2021 the patient remains to be afebrile, the patient is breathing comfortably FiO2 is down to 3L nasal cannula oxygen, the patient left-sided chest pain is currently controlled, the patient did have mild cough but no sputum production, no vomiting abdominal pain no diarrhea Objective - Vital Signs Vital signs: Vital Signs Temp 98.4 F 08/13/21 08:00 Pulse 84 08/13/21 13:25 Resp 18 08/13/21 13:25 BP 83/55 08/13/21 11:00 Pulse Ox 96 08/13/21 11:00 Intake & Output 08/12/21 08/13/21 08/13/21 18:59 06:59 18:59 Intake Total 1800 660 600 Output Total 1470 1800 0 Balance 330 -1140 600 Weight 57 kg Intake: Oral 1800 660 600 Output: Urine 1470 1800 0 Other: Voiding Method Urinal Urinal Urinal # Voids 1 0 # Bowel Movements 1 ABP, PAP, CO, CI - Last Documented Arterial Blood Pressure 109/55 - Exam GENERAL DESCRIPTION: Middle-aged male lying in bed in no distress RESPIRATORY SYSTEM: Unlabored breathing , decreased breath sounds at bases HEART: S1 S2 regular rate and rhythm , ABDOMEN: Soft , no tenderness EXTREMITIES: No edema feet - Labs CBC & Chem 7: 08/11/21 19:29 08/11/21 07:15 Labs: Abnormal Lab Results - Last 24 Hours (Table) 08/04/21 Range/Units 21:20 Crossmatch See Detail Assessment and Plan (1) Pneumonia Current Visit: No Status: Acute Code(s): J18.9 - PNEUMONIA, UNSPECIFIED ORGANISM SNOMED Code(s): 814298749 Plan: 1patient with COPD with extensive emphysema and recent diagnosis of histoplasma pneumonia on the basis of positive urine and serum antigen no admit to the hospital with large pneumothorax questionable related to the fall versus to his extensive emphysema in this patient who is status post chest tube placement this admission , currently being treated initially with chest tube and is being followed by pulmonary and CT surgery, the patient did have a fever 1 during this admission however no fever since then and blood stained sputum cultures remains to be negative 2patient will continue with Sporanox 200 mg 3 times a day and continue supportive care Time with Patient: Less than 30
[2021-08-13] MEDS: ATORVASTATIN 40 MG TAB PO SCH (20:40)
[2021-08-13] MEDS: OXYMETAZOLINE 0.05% NASL SPRAY 1 SPRAY BOTTLE NASAL SCH (20:40)
--- NOTE | 2021-08-14 08:17 | P.PN ---
Subjective Progress Note Date: 08/14/21 Principal diagnosis: Severe COPD with significant bullous emphysema on home oxygen, pneumothorax on the left post chest tube placement, pneumonia/sepsis. Previous medical history of histoplasmosis infection, coronary artery disease with myocardial infarction status post stenting, paroxysmal atrial fibrillation on no anticoagulation outpatient, chronic systolic heart failure status post ICD placement, GI bleed, previous tobacco dependence with recent cessation, narcotic dependence on Suboxone. marijuana use The patient was seen and examined this morning sitting up in bed in the intensive care unit in no acute distress. Denies significant pain, denies increased shortness of breath. Currently on 2 L nasal cannula with oxygen saturation in the mid 90s. Able to achieve 1250 mL on his incentive spirometry. Left pleural chest tube discontinued yesterday without incident, CXR this morning stable. No new concerns. Objective - Vital Signs Vital signs: Vital Signs Temp 97.9 F 08/14/21 00:00 Pulse 87 08/14/21 07:00 Resp 14 08/14/21 07:00 BP 85/52 08/14/21 07:00 Pulse Ox 92 L 08/14/21 07:00 Intake & Output 08/13/21 08/14/21 08/14/21 18:59 06:59 18:59 Intake Total 1800 240 Output Total 1002 1600 0 Balance 798 -1360 0 Weight 57.5 kg Intake: Oral 1800 240 Output: Urine 1000 1600 0 Stool 2 Other: Voiding Method Urinal Urinal # Voids 0 1 ABP, PAP, CO, CI - Last Documented Arterial Blood Pressure 109/55 - Exam CONSTITUTIONAL: Appears comfortable, cooperative, no acute distress RESPIRATORY: Lungs sounds diminished bilaterally. Respirations even, nonlabored. Currently on 2 L nasal cannula with oxygen saturation 94%. Able to achieve 1250 mL on incentive spirometry. Strong cough. CARDIOVASCULAR: S1, S2 present. Regular rate and rhythm, sinus rhythm on telemetry. Palpable peripheral pulses bilaterally. No edema present. No calf pain or tenderness noted GASTROINTESTINAL: Abdomen soft, nontender, nondistended. Active bowel sounds present 4 quadrants. Tolerating diet GENITOURINARY: Continues to void clear, yellow urine INTEGUMENTARY: Skin is warm and dry with evidence of good perfusion NEUROLOGIC: Cranial nerves II through XII intact MUSKULOSKELETAL: Able to move all extremities, strength equal bilaterally, gait normal PSYCHIATRIC: Alert and oriented to person place and time, appropriate affect, intact judgment and insight - Allied health notes Allied health notes reviewed: nursing - Labs CBC & Chem 7: 08/11/21 19:29 08/11/21 07:15 - Imaging and Cardiology Chest x-ray: image reviewed Assessment and Plan Assessment: 1. Severe COPD with significant bullous emphysema on home oxygen, pneumothorax on the left post chest tube placement 2. Pneumonia/sepsis 3. History of histoplasmosis infection 4. History of coronary artery disease with myocardial infarction status post stenting 5. Paroxysmal atrial fibrillation 6. Chronic systolic heart failure status post ICD placement 7. GI bleed 8. Previous tobacco dependence 8. Narcotic dependence on Suboxone 9. Marijuana use Plan: 1. Chest tube discontinued yesterday, follow up CXR stable 2. Wean O2 as tolerated. Encourage incentive spirometry use 3. Increase activity as tolerated 4. Encourage continued smoking cessation 5. Medical management of other comorbidities per primary service 6. Patient may be discharged from our standpoint when ok with other services. Discharge instructions regarding chest tube site placed on discharge plan
[2021-08-14] MEDS: NON FORMULARY DRUG (Buprenorphine Hcl/Naloxone Hcl [Suboxone 8 Mg-2 Mg Sl Film] 1 EACH Fil SUBLINGUAL SCH ×3 (08:23→20:56)
[2021-08-14] MEDS: ITRACONAZOLE 100 MG CAP PO SCH ×3 (08:23→20:56)
[2021-08-14] MEDS: NICOTINE 21MG/24HR PATCH TRANSDERM SCH (08:23)
[2021-08-14] MEDS: ASPIRIN 81 MG PO SCH (08:23)
[2021-08-14] MEDS: ENOXAPARIN 40 MG/0.4 ML SYRINGE SQ SCH (08:23)
[2021-08-14] MEDS: PANTOPRAZOLE 40 MG/10 ML VIAL IV SCH ×2 (08:23→20:56)
[2021-08-14] MEDS: carvediloL 6.25 MG TAB PO SCH ×2 (08:24→19:05)
[2021-08-14] MEDS: OXYMETAZOLINE 0.05% NASL SPRAY 1 SPRAY BOTTLE NASAL SCH ×2 (08:24→20:57)
--- NOTE | 2021-08-14 08:27 | XR ---
EXAMINATION TYPE: XR chest 2V DATE OF EXAM: 08/14/2021 COMPARISON: 08/13/2021 TECHNIQUE: PA and lateral views submitted. HISTORY: Chest tube removal FINDINGS: Chest tube is been removed and there is suggestion of 2 small air-fluid levels in the left upper lung which may represent a small pneumothorax. Bilateral large areas of upper lobe consolidation are note d which may been the basis of neoplasm or infectious etiology. Right lower lobe subsegmental infiltra te stable and there is underlying COPD. PICC line and cardiac device stable. Heart size unchanged.. IMPRESSION: 1. Chest tube is been removed and there is suggestion of two small air-fluid levels in the left upper lung which may represent a small pneumothorax. 2. Bilateral large areas of upper lobe consolidation are noted which may been the basis of neoplasm o r infectious etiology. Right lower lobe subsegmental infiltrate stable and there is underlying COPD.
[2021-08-14] MEDS: IPRATROPIUM-ALBUTEROL 3 ML NEB INHALATION PRN ×4 (08:55→23:57)
[2021-08-14] MEDS: TRELEGY INHALATION SCH (08:55)
--- NOTE | 2021-08-14 12:05 | P.PN ---
Subjective Progress Note Date: 08/14/21 Principal diagnosis: Acute hypoxic respiratory failure secondary to large secondary pneumothorax, severe COPD, and histoplasma pneumonia On 08/09/2021, the patient remains stable. He remains on O2 at 6 L of O2 by nasal cannula. No specific complaints. No chest pain. No shortness of breath. He was given a dose of Lasix yesterday 40 mg IV push and overall fluid balance is -3.0 L over the past 24 hours. Chest x-ray from today shows no evidence of any pneumothorax. There is also no evidence of any subcutaneous emphysema. Note that the Pleur-evac was disconnected from suction and the patient was on waterseal for the past 24 hours. No cardiac arrhythmias. The white cell count is at 7.6 with a hemoglobin of 8.8 and his sodium level is at 135 with a BUN of 18 and a creatinine of 0.5. The patient was on 6 L and I managed to cut him down to 3 L of O2 by nasal cannula. Tolerating diet. No nausea. No vomiting. No chest pain. No fever. No chills. Patient was reevaluated today on 08/10/2021, remains in the ICU, on 5 L nasal cannula, O2 saturation is 92-94%, patient is doing well, continues to have left- sided chest tube in place, the chest tube was clamped for the last 24 hours, early this morning the patient was very short of breath, he had a vigorous coug h, and he felt gush of air around the chest tube, and he felt much better after that gush of air. Tube remains clamped, chest x-ray this morning showed no evidence of pneumothorax. However considering his clinical history, I'm a bit reluctant to discontinue the chest tube at this point as he may have had a pneumothorax overnight, and he was able to clear it with his vigorous cough earlier today. Hence I'm going to keep the chest tube suction but on waterseal. Patient remains on Sporanox. His sputum cultures remain negative. Overall the patient is steadily improving. CBC is relatively normal electrolytes are normal renal profile is normal Reevaluated today on08/11/21, patient remains in the ICU, on 5 L nasal cannula, not in any distress. Continues to have left-sided chest tube in place, no evidence of air leak, hence I'm going to clamped the chest tube again today, and follow-up chest x-ray in 24 hours, consider removing the chest tube in 24 hours if there is no evidence of pneumothorax or air leak tomorrow morning. Chest x- ray today showed no specific changes in the bilateral pleural parenchymal changes, and overall the patient is about the same. He does feel much more co mfortable today compared to the last few days. CBC count is 6.8 hemoglobin is 8.6 electrolytes are normal renal profile is normal Reevaluated today on 08/13/21, patient is basically about the same. Yesterday I consulted thoracic surgery on the patient because of his persistent left-sided pneumothorax and persistent air leak. This morning the patient continues to have the chest tube in place, it was placed at waterseal at midnight, chest x- ray shows complete expansion of the left lung, and on visualization of the chest tube, he has intermittent tiny leak. Nonetheless the chest tube remains on waterseal. CBC is normal WBC count is 9.1 hemoglobin is 8.7. Reevaluated today on 08/14/21, patient is doing better, his chest tube was removed yesterday by thoracic surgery, and the patient is doing great, he is only on few liters nasal cannula, not in any distress, chest x-ray today is reassuring, hence I plan to transfer the patient out of the ICU to a regular medical floor and monitor over the next 24-48 hours then consider discharge planning. Objective - Vital Signs Vital signs: Vital Signs Temp 98.3 F 08/14/21 08:00 Pulse 89 08/14/21 11:00 Resp 23 08/14/21 11:00 BP 90/56 08/14/21 11:00 Pulse Ox 91 L 08/14/21 11:00 Intake & Output 08/13/21 08/14/21 08/14/21 18:59 06:59 18:59 Intake Total 1800 240 840 Output Total 1002 1600 0 Balance 798 -1360 840 Weight 57.5 kg Intake: Oral 1800 240 840 Output: Urine 1000 1600 0 Stool 2 Other: Voiding Method Urinal Urinal Urinal # Voids 0 1 ABP, PAP, CO, CI - Last Documented Arterial Blood Pressure 109/55 - Exam Physical Exam: Revealed a 56-year-old white male in no distress. Head: Atraumatic, normocephalic. HEENT:[Neck is supple.] [No neck masses.] [No thyromegaly.] [No JVD.] Chest: [Diminished breath sounds at the bases no rhonchi and no wheezes , chest tube has been removed. Cardiac Exam: [Normal S1 and S2, no S3 gallop, no murmur.] Abdomen: [Soft, nontender, no megaly, no rebound, no guarding, normal bowel sounds.] Extremities: [No clubbing, no edema, no cyanosis.] Neurological Exam: [No focal neurologic deficit.] Alert and oriented 3. Psychiatric: Normal mood affect and normal mental status examination. Skin: No rashes. - Labs CBC & Chem 7: 08/11/21 19:29 08/11/21 07:15 Assessment and Plan Assessment: Impression: Acute hypoxic respiratory failure secondary to secondary pneumothorax, bullous emphysema/COPD, and histoplasma pneumonia. Acute left sided pneumothorax requiring chest tube placement Advanced COPD with bullous emphysema Chronic systolic congestive heart failure and LV dysfunction history of non-ST elevation myocardial infarction Histoplasma pneumonia involving upper lobes Coronary artery disease and previous AK History of atrial fibrillation History of pacemaker implantation History of bilateral inguinal hernia repair Generalized anxiety disorder Recommendation: transfer patient out of the ICU to regular medical floor discussed and reviewed with the patient is chest x-ray today. Discussed with the patient plans to transfer out of the ICU. Continue oxygen, titrate accordingly. Continue to treat his fungal pneumonia/Sporanox. Continue bronchodilators. Continue GI and DVT prophylaxis Continue Dilaudid for pain Ambulate, will follow Time with Patient: Less than 30
--- NOTE | 2021-08-14 15:09 | P.PN ---
Subjective Progress Note Date: 08/14/21 Chest tube was discontinued yesterday. He is doing significantly better, pain is improving. He is back on 3 L of oxygen which is baseline, denies shortness of breath at rest, no coughing, no fevers or chills. Patient will be transferred out of the ICU to regular floor where he will be monitored over the next 24-48 hours Objective - Vital Signs Vital signs: Vital Signs Temp 98.3 F 08/14/21 08:00 Pulse 96 08/14/21 14:00 Resp 20 08/14/21 14:00 BP 120/73 08/14/21 14:00 Pulse Ox 93 L 08/14/21 14:00 Intake & Output 08/13/21 08/14/21 08/14/21 18:59 06:59 18:59 Intake Total 6822 989 2716 Output Total 1002 1600 700 Balance 798 -1360 500 Weight 57.5 kg Intake: Oral 6965 028 4173 Output: Urine 1000 1600 700 Stool 2 Other: Voiding Method Urinal Urinal Urinal # Voids 0 1 ABP, PAP, CO, CI - Last Documented Arterial Blood Pressure 109/55 - Constitutional General appearance: Present: average body habitus, disheveled - EENT Eyes: Present: EOMI, PERRLA - Neck Neck: Present: normal ROM. Absent: lymphadenopathy - Respiratory Respiratory: bilateral: diminished, negative: wheezing - Cardiovascular Rhythm: regular Heart sounds: normal: S1, S2 Abnormal Heart Sounds: Absent: systolic murmur - Gastrointestinal General gastrointestinal: Present: normal bowel sounds. Absent: tenderness - Integumentary Integumentary: Present: pale. Absent: cellulitis, cyanotic, rash - Neurologic Neurologic: Present: CNII-XII intact. Absent: focal deficits - Musculoskeletal Musculoskeletal: Present: strength equal bilaterally - Psychiatric Psychiatric: Present: A&O x's 3, appropriate affect - Labs CBC & Chem 7: 08/11/21 19:29 08/11/21 07:15 Assessment and Plan Plan: Acute hypoxic respiratory failure -Improving -Multifactorial: Secondary to pneumothorax, advanced COPD/emphysema, histoplasmosis pneumonia -Chest tube removed on 08/13/2021 -Currently on 3 L of oxygen which is baseline -Patient will be transferred out of the ICU to regular medical floor today Histoplasmosis pneumonia -Improving, continue itraconazole -Patient further recommendations from infectious disease Advanced COPD with bullous emphysema -Improving -Continue bronchodilators -Supplemental oxygen to maintain saturation greater than 90% -Patient further recommendations from pulmonology Chronic systolic congestive heart failure and LV dysfunction history -No signs of decompensation echocardiogram shows EF 30-35%, recommend conservative management from their perspective. As a patient not a candidate for any intervention at this time -Fluid restrictions Elevated cardiac troponin secondary to ACS versus demand ischemia -Resolving -Secondary type II MD in the setting of acute hypoxia, pneumothorax, COPD, histoplasmosis -No further workup per cardiology at this time Transfer out of ICU today, anticipate discharge home in 2 days Time with Patient: Greater than 30
--- NOTE | 2021-08-14 15:58 | P.PN ---
Subjective Progress Note Date: 08/14/21 Principal diagnosis: Pulmonary histoplasmosis Patient is a 56-year-old male with a past medical history significant for advanced COPD extensive emphysema in this patient who was recently diagnosed with extensive pneumonia secondary to pulmonary histoplasmosis on the basis of a positive serum as well as urine and vision and the patient has been treated with Sporanox, presenting back to the hospital with increasing shortness of breath and noticed to have left-sided pneumothorax requiring a chest tube placement which was discontinued on 08/13/2021 . On today's evaluation that is 08/14/2021 the patient denies any fever or any chills, the patient is breathing comfortably on nasal cannula oxygen, the patient denies any worsening left-sided chest pain, the patient did have mild cough but no sputum production, no vomiting abdominal pain no diarrhea Objective - Vital Signs Vital signs: Vital Signs Temp 98.3 F 08/14/21 08:00 Pulse 96 08/14/21 14:00 Resp 20 08/14/21 14:00 BP 120/73 08/14/21 14:00 Pulse Ox 93 L 08/14/21 14:00 Intake & Output 08/13/21 08/14/21 08/14/21 18:59 06:59 18:59 Intake Total 9736 134 8026 Output Total 1002 1600 700 Balance 798 -1360 500 Weight 57.5 kg Intake: Oral 6808 447 4819 Output: Urine 1000 1600 700 Stool 2 Other: Voiding Method Urinal Urinal Urinal # Voids 0 1 ABP, PAP, CO, CI - Last Documented Arterial Blood Pressure 109/55 - Exam GENERAL DESCRIPTION: Middle-aged male lying in bed in no distress RESPIRATORY SYSTEM: Unlabored breathing , decreased breath sounds at bases HEART: S1 S2 regular rate and rhythm , ABDOMEN: Soft , no tenderness EXTREMITIES: No edema feet - Labs CBC & Chem 7: 08/11/21 19:29 08/11/21 07:15 Assessment and Plan (1) Pneumonia Current Visit: No Status: Acute Code(s): J18.9 - PNEUMONIA, UNSPECIFIED ORGANISM SNOMED Code(s): 707398051 Plan: 1patient with COPD with extensive emphysema and recent diagnosis of histoplasma pneumonia on the basis of positive urine and serum antigen no admit to the hospital with large pneumothorax questionable related to the fall versus to his extensive emphysema in this patient who is status post chest tube placement this admission , currently being treated initially with chest tube and is being followed by pulmonary and CT surgery, the patient did have a fever 1 during this admission however no fever since then and blood stained sputum cultures remains to be negative 2patient currently being treated with Sporanox 200 mg 3 times a day we will recheck his itraconazole level possibly on Tuesday that'll be 2 weeks from dose change and continue supportive care Time with Patient: Less than 30
[2021-08-14 17:34] LABS: Glucose,Whole Blood 121 mg/dL (75-99)
[2021-08-14 20:25] LABS: Glucose,Whole Blood 158 mg/dL (75-99)
[2021-08-14] MEDS: ATORVASTATIN 40 MG TAB PO SCH (20:56)
[2021-08-14] MEDS: ALPRAZolam 0.25 MG TAB PO PRN (23:54)
[2021-08-14] MEDS: HYDROmorphone 1 MG/ML 1 ML SYRINGE IVP PRN (23:54)
[2021-08-15] MEDS: SODIUM CHLORIDE 0.9% 1,000 ML IV SCH (01:42)
[2021-08-15] MEDS: carvediloL 6.25 MG TAB PO SCH ×2 (06:16→18:19)
[2021-08-15] MEDS: TRELEGY INHALATION SCH (08:07)
[2021-08-15] MEDS: IPRATROPIUM-ALBUTEROL 3 ML NEB INHALATION PRN ×4 (08:07→20:40)
[2021-08-15 08:10] LABS: Anisocytosis Slight; Basophils # (A) 0.1 k/uL (0-0.2); Basophils % (A) 1 %; Eosinophils # (A) 0.5 k/uL (0-0.7); Eosinophils % (A) 6 %; HCT 30.2 % (39.0-53.0); HGB 8.8 gm/dL (13.0-17.5); Hypochromasia Marked; Lymphocytes # (A) 1.4 k/uL (1.0-4.8); Lymphocytes % (A) 19 %; MCH 25.9 pg (25.0-35.0); MCV 89.3 fL (80.0-100.0); Mean Platelet Volume 7.7; Monocytes # (A) 0.6 k/uL (0-1.0); Monocytes % (A) 8 %; Neutrophils # (A) 4.7 k/uL (1.3-7.7); Neutrophils % (A) 64 %; Platelet Count 575 k/uL (150-450); RBC 3.38 m/uL (4.30-5.90); RDW 16.4 % (11.5-15.5); WBC 7.4 k/uL (3.8-10.6)
[2021-08-15 08:22] LABS: ALT 62 U/L (4-49); AST 35 U/L (17-59); African American GFR (CKD) >90 (>60 ml/min/1.73 sqM); Albumin 2.8 g/dL (3.5-5.0); Alkaline Phosphatase 90 U/L (38-126); Anion Gap 9 mmol/L; Blood Urea Nitrogen 16 mg/dL (9-20); Calcium 8.9 mg/dL (8.4-10.2); Carbon Dioxide 27 mmol/L (22-30); Chloride 101 mmol/L (98-107); Glucose 106 mg/dL (74-99); Non-African American GFR(CKD) >90 (>60 ml/min/1.73 sqM); Potassium 4.2 mmol/L (3.5-5.1); Sodium 137 mmol/L (137-145); Total Bilirubin 0.4 mg/dL (0.2-1.3); Total Protein 6.1 g/dL (6.3-8.2)
[2021-08-15] MEDS: OXYMETAZOLINE 0.05% NASL SPRAY 1 SPRAY BOTTLE NASAL SCH ×2 (09:00→20:27)
[2021-08-15] MEDS ORDERED: HYDROcodone/APAP 10-325MG 1 EACH TAB PO PRN (09:28)
[2021-08-15] MEDS ORDERED: HYDROcodone/APAP 7.5-325MG 1 EACH TAB PO PRN (09:28)
[2021-08-15] MEDS: ASPIRIN 81 MG PO SCH (09:54)
[2021-08-15] MEDS: ITRACONAZOLE 100 MG CAP PO SCH ×3 (09:54→20:26)
[2021-08-15] MEDS: NON FORMULARY DRUG (Buprenorphine Hcl/Naloxone Hcl [Suboxone 8 Mg-2 Mg Sl Film] 1 EACH Fil SUBLINGUAL SCH ×3 (09:55→20:26)
[2021-08-15] MEDS: ENOXAPARIN 40 MG/0.4 ML SYRINGE SQ SCH (09:55)
[2021-08-15] MEDS: NICOTINE 21MG/24HR PATCH TRANSDERM SCH (09:55)
[2021-08-15] MEDS: PANTOPRAZOLE 40 MG/10 ML VIAL IV SCH ×2 (09:55→20:26)
--- NOTE | 2021-08-15 11:21 | P.PN ---
Subjective Progress Note Date: 08/15/21 Principal diagnosis: Acute hypoxic respiratory failure secondary to large secondary pneumothorax, severe COPD, and histoplasma pneumonia The patient is seen today August 15 2021 in follow-up on the regular medical floor. He is currently sitting up at the bedside. Awake and alert in no acute distress. He is maintaining O2 saturations in the 90s on 4 L/m per nasal cannula. He's been afebrile. Hemodynamically stable. White count 7.4. Hemoglobin 8.8. Platelets 575. Sodium 137. Potassium 4.2. Bicarb 27. BUN 16. Creatinine 0.55. Leukocytosis 106. If he is continued on Trelegy, DuoNeb inhalations. Working well with the incentive spirometer. NicoDerm patch in p lace. He remains on Sporanox. Lovenox for DVT prophylaxis. Objective - Vital Signs Vital signs: Vital Signs Temp 98.4 F 08/14/21 20:00 Pulse 84 08/15/21 11:04 Resp 20 08/15/21 02:00 BP 106/64 08/15/21 06:16 Pulse Ox 95 08/15/21 02:00 Intake & Output 08/14/21 08/15/21 08/15/21 18:59 06:59 18:59 Intake Total 1200 485 Output Total 700 Balance 500 485 Intake: Oral 1200 485 Output: Urine 700 Stool 0 Urine/Stool Mix 0 Other: Voiding Method Urinal Urinal # Voids 0 1 # Bowel Movements 0 ABP, PAP, CO, CI - Last Documented Arterial Blood Pressure 109/55 - Exam Gen. appearance: Very pleasant 56-year-old frail, cachectic male patient with a body mass index of 20.9 currently on 4 L of O2 by nasal cannula Head exam was generally normal. There was no scleral icterus or corneal arcus. Mucous membranes were moist. Neck was supple and without jugular venous distension, thyromegaly, or carotid bruits. Carotids were easily palpable bilaterally. There was no adenopathy. There is minimal evidence of subcutaneous emphysema over the neck area and this has improved on today's evaluation Lungs sounds are diminished. Scattered rhonchi. No significant wheezing. Cardiac exam revealed the PMI to be normally situated and sized. The rhythm was regular and no extrasystoles were noted during several minutes of auscultation. The first and second heart sounds were normal and physiologic splitting of the second heart sound was noted. There were no murmurs, rubs, clicks, or gallops. Patient has an AICD pocket over the left anterior chest area. Abdominal exam revealed normal bowel sounds. The abdomen was soft, non-tender, a nd without masses, organomegaly, or appreciable enlargement of the abdominal aorta. Examination of the extremities revealed easily palpable radial, femoral and pedal pulses. There was no cyanosis, clubbing or edema. Examination of the skin revealed no evidence of significant rashes, suspicious appearing nevi or other concerning lesions. Neurologically the patient awake and alert and following commands and answering questions. Generalized weakness no 4 extremities, no focal neurological deficits. - Labs CBC & Chem 7: 08/15/21 07:39 08/15/21 07:39 Labs: Abnormal Lab Results - Last 24 Hours (Table) 08/14/21 08/14/21 08/15/21 Range/Units 17:24 19:59 07:39 RBC 3.38 L (4.30-5.90) m/uL Hgb 8.8 L (13.0-17.5) gm/dL Hct 30.2 L (39.0-53.0) % MCHC 29.0 L (31.0-37.0) g/dL RDW 16.4 H (11.5-15.5) % Plt Count 575 H (150-450) k/uL Creatinine (0.66-1.25) mg/dL Glucose (74-99) mg/dL POC Glucose (mg/dL) 121 H 158 H (75-99) mg/dL ALT (4-49) U/L Total Protein (6.3-8.2) g/dL Albumin (3.5-5.0) g/dL 08/15/21 Range/Units 07:39 RBC (4.30-5.90) m/uL Hgb (13.0-17.5) gm/dL Hct (39.0-53.0) % MCHC (31.0-37.0) g/dL RDW (11.5-15.5) % Plt Count (150-450) k/uL Creatinine 0.55 L (0.66-1.25) mg/dL Glucose 106 H (74-99) mg/dL POC Glucose (mg/dL) (75-99) mg/dL ALT 62 H (4-49) U/L Total Protein 6.1 L (6.3-8.2) g/dL Albumin 2.8 L (3.5-5.0) g/dL Assessment and Plan Assessment: 1 acute hypoxic respiratory failure secondary to a large secondary pneumothorax, a complication of bullous emphysema and pneumonia , status post insertion of a large left-sided chest tube, 32-Persian, with reexpansion of the left lung without any complications. The patient was extubated on 07/06/2021 and currently is on 4 L of O2 by nasal cannula 2 large left-sided neck and a pneumothorax, post chest tube insertion and the patient currently is a 32-Persian chest tube in place with adequate expansion of the left lung. The chest tube had been clamped yesterday on 08/11/2021. Unclamped today and there is still an air leak. Chest x-ray reveals interval development of a pleural reflection along the medial margin of the left base. Suspect a small pneumothorax. 3 advanced COPD with bullous changes in the upper lobes bilaterally 4 acute non-ST segment elevation myocardial infarction with secondary hypotension secondary to above, currently the patient is off pressors.. The patient is known to have chronic systolic heart failure with impaired left vent ricular ejection fraction. 5 Histoplasma pneumonia with upper lobe predominance. The patient had bilateral upper lobe pneumonia status post recent bronchoscopy with BAL on 06/24/2021, with negative BAL and viral cultures, COVID-19 PCR was negative. Patient is status post repeat bronchoscopy with BAL on 07/07/2021 with transbronchial biopsies of the right middle lobe, brushings and BAL of the right middle lobe, transbronchial biopsies were consistent with organizing pneumonia, BAL cultures negative thus far. Meanwhile, the patient had positive histoplasma antibody titers. Histoplasma serum antigen came back positive. 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 Number of minutes spent on the visit: 10.
--- NOTE | 2021-08-15 15:48 | P.PN ---
Subjective Progress Note Date: 08/15/21 Patient was transferred from the ICU to regular floor last night. Chest tube removed 2 days ago, pain improving. Still complaining of shortness of breath with exertion but this is improving as well. He has a persistent dry cough, has been afebrile, he is on 4 L oxygen saturation in the mid 90s. Objective - Vital Signs Vital signs: Vital Signs Temp 98.4 F 08/14/21 20:00 Pulse 88 08/15/21 15:24 Resp 20 08/15/21 02:00 BP 106/64 08/15/21 06:16 Pulse Ox 95 08/15/21 02:00 Intake & Output 08/14/21 08/15/21 08/15/21 18:59 06:59 18:59 Intake Total 1200 485 920 Output Total 700 Balance 500 485 920 Intake: Oral 1200 485 920 Output: Urine 700 Stool 0 Urine/Stool Mix 0 Other: Voiding Method Urinal Urinal # Voids 0 1 # Bowel Movements 0 ABP, PAP, CO, CI - Last Documented Arterial Blood Pressure 109/55 - Constitutional General appearance: Present: average body habitus, cooperative, no acute distress - EENT Eyes: Present: EOMI, PERRLA - Neck Neck: Present: normal ROM - Respiratory Respiratory: bilateral: diminished, negative: wheezing - Cardiovascular Rhythm: regular Heart sounds: normal: S1, S2 Abnormal Heart Sounds: Absent: systolic murmur - Gastrointestinal General gastrointestinal: Present: hepatomegaly, normal bowel sounds. Absent: tenderness - Integumentary Integumentary: Absent: cyanotic, pale - Neurologic Neurologic: Present: CNII-XII intact, focal deficits - Musculoskeletal Musculoskeletal: Present: strength equal bilaterally - Psychiatric Psychiatric: Present: A&O x's 3, appropriate affect - Labs CBC & Chem 7: 08/15/21 07:39 08/15/21 07:39 Labs: Abnormal Lab Results - Last 24 Hours (Table) 08/14/21 08/14/21 08/15/21 Range/Units 17:24 19:59 07:39 RBC 3.38 L (4.30-5.90) m/uL Hgb 8.8 L (13.0-17.5) gm/dL Hct 30.2 L (39.0-53.0) % MCHC 29.0 L (31.0-37.0) g/dL RDW 16.4 H (11.5-15.5) % Plt Count 575 H (150-450) k/uL Creatinine (0.66-1.25) mg/dL Glucose (74-99) mg/dL POC Glucose (mg/dL) 121 H 158 H (75-99) mg/dL ALT (4-49) U/L Total Protein (6.3-8.2) g/dL Albumin (3.5-5.0) g/dL 08/15/21 Range/Units 07:39 RBC (4.30-5.90) m/uL Hgb (13.0-17.5) gm/dL Hct (39.0-53.0) % MCHC (31.0-37.0) g/dL RDW (11.5-15.5) % Plt Count (150-450) k/uL Creatinine 0.55 L (0.66-1.25) mg/dL Glucose 106 H (74-99) mg/dL POC Glucose (mg/dL) (75-99) mg/dL ALT 62 H (4-49) U/L Total Protein 6.1 L (6.3-8.2) g/dL Albumin 2.8 L (3.5-5.0) g/dL Assessment and Plan Plan: Acute hypoxic respiratory failure -Improving -Multifactorial: Secondary to pneumothorax, advanced COPD/emphysema, histoplasmosis pneumonia -Chest tube removed on 08/13/2021 -Currently on 3-4 L of oxygen which is baseline -Patient transferred out of the ICU to regular medical floor yesterday -patient to be discharged Tuesday per pulmonology Histoplasmosis pneumonia -Improving, continue itraconazole -Patient further recommendations from infectious disease Advanced COPD with bullous emphysema -Improving -Continue bronchodilators -Supplemental oxygen to maintain saturation greater than 90% -Patient further recommendations from pulmonology Chronic systolic congestive heart failure and LV dysfunction history -No signs of decompensation echocardiogram shows EF 30-35%, recommend conservative management from their perspective. As a patient not a candidate for any intervention at this time -Fluid restrictions Elevated cardiac troponin secondary to ACS versus demand ischemia -Resolving -Secondary type II PR in the setting of acute hypoxia, pneumothorax, COPD, histoplasmosis -No further workup per cardiology at this time anticipate discharge home in 2 days Time with Patient: Less than 30
--- NOTE | 2021-08-15 17:41 | P.PN ---
Subjective Progress Note Date: 08/15/21 Principal diagnosis: Pulmonary histoplasmosis Patient is a 56-year-old male with a past medical history significant for advanced COPD extensive emphysema in this patient who was recently diagnosed with extensive pneumonia secondary to pulmonary histoplasmosis on the basis of a positive serum as well as urine and vision and the patient has been treated with Sporanox, presenting back to the hospital with increasing shortness of breath and noticed to have left-sided pneumothorax requiring a chest tube placement which was discontinued on 08/13/2021 . On today's evaluation that is 08/15/2021 the patient remains to be afebrile, the patient is breathing comfortably on 4 L nasal cannula oxygen, the patient left- sided chest pain is currently controlled, the patient did have mild cough but no sputum production, the patient denies nausea vomiting abdominal pain no di arrhea Objective - Vital Signs Vital signs: Vital Signs Temp 98.4 F 08/14/21 20:00 Pulse 88 08/15/21 15:24 Resp 20 08/15/21 02:00 BP 106/64 08/15/21 06:16 Pulse Ox 95 08/15/21 02:00 Intake & Output 08/14/21 08/15/21 08/15/21 18:59 06:59 18:59 Intake Total 1200 485 920 Output Total 700 Balance 500 485 920 Intake: Oral 1200 485 920 Output: Urine 700 Stool 0 Urine/Stool Mix 0 Other: Voiding Method Urinal Urinal # Voids 0 1 # Bowel Movements 0 ABP, PAP, CO, CI - Last Documented Arterial Blood Pressure 109/55 - Exam GENERAL DESCRIPTION: Middle-aged male lying in bed in no distress RESPIRATORY SYSTEM: Unlabored breathing , decreased breath sounds at bases HEART: S1 S2 regular rate and rhythm , ABDOMEN: Soft , no tenderness EXTREMITIES: No edema feet - Labs CBC & Chem 7: 08/15/21 07:39 08/15/21 07:39 Labs: Abnormal Lab Results - Last 24 Hours (Table) 08/14/21 08/14/21 08/15/21 Range/Units 17:24 19:59 07:39 RBC 3.38 L (4.30-5.90) m/uL Hgb 8.8 L (13.0-17.5) gm/dL Hct 30.2 L (39.0-53.0) % MCHC 29.0 L (31.0-37.0) g/dL RDW 16.4 H (11.5-15.5) % Plt Count 575 H (150-450) k/uL Creatinine (0.66-1.25) mg/dL Glucose (74-99) mg/dL POC Glucose (mg/dL) 121 H 158 H (75-99) mg/dL ALT (4-49) U/L Total Protein (6.3-8.2) g/dL Albumin (3.5-5.0) g/dL 08/15/21 Range/Units 07:39 RBC (4.30-5.90) m/uL Hgb (13.0-17.5) gm/dL Hct (39.0-53.0) % MCHC (31.0-37.0) g/dL RDW (11.5-15.5) % Plt Count (150-450) k/uL Creatinine 0.55 L (0.66-1.25) mg/dL Glucose 106 H (74-99) mg/dL POC Glucose (mg/dL) (75-99) mg/dL ALT 62 H (4-49) U/L Total Protein 6.1 L (6.3-8.2) g/dL Albumin 2.8 L (3.5-5.0) g/dL Assessment and Plan (1) Pneumonia Current Visit: No Status: Acute Code(s): J18.9 - PNEUMONIA, UNSPECIFIED ORGANISM SNOMED Code(s): 080069664 Plan: 1patient with COPD with extensive emphysema and recent diagnosis of histoplasma pneumonia on the basis of positive urine and serum antigen no admit to the hospital with large pneumothorax questionable related to the fall versus to his extensive emphysema in this patient who is status post chest tube placement this admission , currently being treated initially with chest tube and is being followed by pulmonary and CT surgery, the patient did have a fever 1 during this admission however no fever since then and blood stained sputum cultures remains to be negative 2patient slowly clinical improvement and will continue with Sporanox 200 mg 3 times a day and continue supportive care Time with Patient: Less than 30
[2021-08-15] MEDS: ATORVASTATIN 40 MG TAB PO SCH (20:26)
[2021-08-15] MEDS: ALPRAZolam 0.25 MG TAB PO PRN (23:41)
[2021-08-15] MEDS: HYDROmorphone 1 MG/ML 1 ML SYRINGE IVP PRN (23:42)
[2021-08-16] MEDS: SODIUM CHLORIDE 0.9% 1,000 ML IV SCH (03:05)
[2021-08-16] MEDS: carvediloL 6.25 MG TAB PO SCH ×2 (06:46→17:17)
[2021-08-16 08:19] LABS: ALT 53 U/L (4-49); AST 29 U/L (17-59); African American GFR (CKD) >90 (>60 ml/min/1.73 sqM); Albumin 2.5 g/dL (3.5-5.0); Alkaline Phosphatase 80 U/L (38-126); Anion Gap 6 mmol/L; Blood Urea Nitrogen 16 mg/dL (9-20); Calcium 8.8 mg/dL (8.4-10.2); Carbon Dioxide 29 mmol/L (22-30); Chloride 102 mmol/L (98-107); Glucose 89 mg/dL (74-99); Non-African American GFR(CKD) >90 (>60 ml/min/1.73 sqM); Potassium 4.5 mmol/L (3.5-5.1); Sodium 137 mmol/L (137-145); Total Bilirubin 0.4 mg/dL (0.2-1.3); Total Protein 5.6 g/dL (6.3-8.2)
[2021-08-16 08:20] LABS: Anisocytosis Slight; Basophils % (A) 1 %; Eosinophils # (A) 0.4 k/uL (0-0.7); Eosinophils % (A) 7 %; HCT 25.4 % (39.0-53.0); HGB 7.8 gm/dL (13.0-17.5); Hypochromasia Marked; Lymphocytes # (A) 1.2 k/uL (1.0-4.8); Lymphocytes % (A) 19 %; MCH 26.6 pg (25.0-35.0); MCHC 30.7 g/dL (31.0-37.0); MCV 86.7 fL (80.0-100.0); Mean Platelet Volume 7.8; Monocytes # (A) 0.5 k/uL (0-1.0); Monocytes % (A) 8 %; Neutrophils # (A) 3.8 k/uL (1.3-7.7); Neutrophils % (A) 61 %; Platelet Count 544 k/uL (150-450); Poikilocytosis Slight; RBC 2.93 m/uL (4.30-5.90); RDW 16.5 % (11.5-15.5); WBC 6.3 k/uL (3.8-10.6)
[2021-08-16] MEDS: IPRATROPIUM-ALBUTEROL 3 ML NEB INHALATION PRN ×4 (08:33→19:40)
[2021-08-16] MEDS: TRELEGY INHALATION SCH (08:34)
--- NOTE | 2021-08-16 08:43 | XR ---
EXAMINATION TYPE: XR chest 1V portable DATE OF EXAM: 08/16/2021 HISTORY: Shortness of breath. COMPARISON: 08/14/2021 TECHNIQUE: Single view of the chest is submitted. FINDINGS: Demonstrated are scattered senescent parenchymal change. Persistent cavitary consolidative process within the upper lobes with air-fluid level seen. Overall n o change is appreciated. The heart is stable. Hilar and mediastinal structures are within normal limits. Degenerative changes are seen of the dorsal spine. IMPRESSION: 1. Persistent cavitary consolidative process within the upper lobes with air-fluid level seen. Overa ll no change is appreciated.
[2021-08-16] MEDS: ASPIRIN 81 MG PO SCH (09:05)
[2021-08-16] MEDS: ENOXAPARIN 40 MG/0.4 ML SYRINGE SQ SCH (09:05)
[2021-08-16] MEDS: OXYMETAZOLINE 0.05% NASL SPRAY 1 SPRAY BOTTLE NASAL SCH ×2 (09:05→22:22)
[2021-08-16] MEDS: PANTOPRAZOLE 40 MG/10 ML VIAL IV SCH ×2 (09:05→22:07)
[2021-08-16] MEDS: ITRACONAZOLE 100 MG CAP PO SCH ×3 (09:05→22:38)
[2021-08-16] MEDS: NICOTINE 21MG/24HR PATCH TRANSDERM SCH (09:05)
[2021-08-16] MEDS: NON FORMULARY DRUG (Buprenorphine Hcl/Naloxone Hcl [Suboxone 8 Mg-2 Mg Sl Film] 1 EACH Fil SUBLINGUAL SCH ×3 (09:21→22:38)
--- NOTE | 2021-08-16 12:03 | P.PN ---
Subjective Progress Note Date: 08/16/21 Principal diagnosis: Shortness of breath On 08/16/2021 patient seen in follow-up on medical surgical floor. He looks quite comfortable, he is awake and alert, very pleasant, cooperative, breathing comfortably, on 4 L of oxygen his pulse ox is 98%, his been afebrile, vital sign s have been stable. His chest x-ray today showing persisting cavitary consolidative process within the upper lobes with air fluid level seen, patient is status post left-sided pneumothorax requiring chest tube placement which had been removed a few days ago. No evidence of pneumothorax on the chest x-ray. Vital signs have been stable. Patient has no specific complaints. As been tolerating ambulation, she remains on Itraconazole, he remains on nebulized bronchodilators. Sputum culture had shown no growth. Today's labs have been reviewed with blood cell, 6.3, hemoglobin is 7.8, electrolytes and renal profile were within normal limits. Objective - Vital Signs Vital signs: Vital Signs Temp 98.1 F 08/16/21 08:59 Pulse 96 08/16/21 11:53 Resp 20 08/16/21 11:07 BP 109/68 08/16/21 11:07 Pulse Ox 98 08/16/21 11:07 Intake & Output 08/15/21 08/16/21 08/16/21 18:59 06:59 18:59 Intake Total 1400 485 240 Output Total 2 Balance 1398 485 240 Intake: Oral 1400 485 240 Output: Urine 2 Stool 0 Other: Voiding Method Urinal Urinal Urinal # Voids 2 ABP, PAP, CO, CI - Last Documented Arterial Blood Pressure 109/55 - Exam GENERAL EXAM: Alert, very pleasant, 56-year-old white male on 4 L of oxygen pulse ox 98% comfortable in no apparent distress. HEAD: Normocephalic/atraumatic. EYES: Normal reaction of pupils, equal size. Conjunctiva pink, sclera white. NOSE: Clear with pink turbinates. THROAT: No erythema or exudates. NECK: No masses, no JVD, no thyroid enlargement, no adenopathy. CHEST: No chest wall deformity. Symmetrical expansion. LUNGS: Diminished air entry with no crackles, wheeze, rhonchi or dullness. CVS: Regular rate and rhythm, normal S1 and S2, no gallops, no murmurs, no rubs ABDOMEN: Soft, nontender. No hepatosplenomegaly, normal bowel sounds, no guarding or rigidity. EXTREMITIES: No clubbing, no edema, no cyanosis, 2+ pulses and upper and lower extremities. MUSCULOSKELETAL: Muscle strength and tone normal. SPINE: No scoliosis or deformity SKIN: No rashes CENTRAL NERVOUS SYSTEM: Alert and oriented -3. No focal deficits, tone is normal in all 4 extremities. PSYCHIATRIC: Alert and oriented -3. Appropriate affect. Intact judgment and insight. - Labs CBC & Chem 7: 08/16/21 06:28 08/16/21 06:28 Labs: Abnormal Lab Results - Last 24 Hours (Table) 08/16/21 08/16/21 Range/Units 06:28 06:28 RBC 2.93 L (4.30-5.90) m/uL Hgb 7.8 L (13.0-17.5) gm/dL Hct 25.4 L (39.0-53.0) % MCHC 30.7 L (31.0-37.0) g/dL RDW 16.5 H (11.5-15.5) % Plt Count 544 H (150-450) k/uL Creatinine 0.52 L (0.66-1.25) mg/dL ALT 53 H (4-49) U/L Total Protein 5.6 L (6.3-8.2) g/dL Albumin 2.5 L (3.5-5.0) g/dL Assessment and Plan Plan: #1. Acute hypoxic respiratory failure related to a large secondary pneumothorax, a complication of bullous emphysema and histoplasma pneumonia #2. Acute left-sided pneumothorax requiring chest tube placement, which was subsequently removed post reinflation of the left lung #3. 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 Chronic systolic CHF and LV dysfunction with history of non-ST elevated myocardial infarction #5. Histoplasma pneumonia involving the upper lobes #6. Coronary artery disease and previous myocardial infarction #7. History of atrial fibrillation #8. History of pacemaker implantation #9. History of bilateral inguinal hernia repair #10. Generalized anxiety disorder Plan: Patient is doing well Today's chest x-ray reviewed showing persistent cavitary consolidative process within the upper lobes No evidence of left-sided pneumothorax Left lung remains reexpanded post left-sided chest tube removal Vital signs are stable Increase activity as tolerated Anticipate discharge in the morning if patient remains stable Patient has home O2, he can finish the course of Itraconazole as previously ordered, Outpatient follow-up with Dr. Lundberg in the office in 7-10 days I have personally seen and examined the patient, performed the documentation and the assessment and plan as written. Number of minutes spent on the visit: [10] Time with Patient: Less than 30
--- NOTE | 2021-08-16 15:36 | P.PN ---
Subjective Progress Note Date: 08/16/21 Patient was transferred out of the ICU 2 days ago. No significant events overnight. Addressee denies any shortness of breath, no chest pain. But he becomes significantly dyspneic with physical activity, after walking to the bathroom and coming back to his bed, his oxygen saturation dropped down to 82% o n 4 L, but recovered back to the 90s with movement. His chest x-ray today shows persistent cavitary consolidative process in the upper lobe. No pneumothorax. Overall the patient has been slowly improving each day and has no new complaints or symptoms. His hemoglobin dropped from 8.8 down to 7.8 today, has had no dark stools, no obvious signs of active bleeding or bruising, vital signs stable. Objective - Vital Signs Vital signs: Vital Signs Temp 98.1 F 08/16/21 08:59 Pulse 96 08/16/21 11:53 Resp 20 08/16/21 11:07 BP 109/68 08/16/21 11:07 Pulse Ox 98 08/16/21 11:07 Intake & Output 08/15/21 08/16/21 08/16/21 18:59 06:59 18:59 Intake Total 1400 485 240 Output Total 2 Balance 1398 485 240 Intake: Oral 1400 485 240 Output: Urine 2 Stool 0 Other: Voiding Method Urinal Urinal Urinal # Voids 2 ABP, PAP, CO, CI - Last Documented Arterial Blood Pressure 109/55 - Constitutional General appearance: Present: cooperative, no acute distress, thin - EENT Eyes: Present: EOMI, PERRLA - Respiratory Respiratory: right: rhonchi, bilateral: diminished, negative: wheezing - Cardiovascular Rhythm: regular Heart sounds: normal: S1, S2 Abnormal Heart Sounds: Absent: systolic murmur, diastolic murmur - Gastrointestinal General gastrointestinal: Present: normal bowel sounds. Absent: distended, hepatomegaly, tenderness - Integumentary Integumentary: Absent: cyanotic, jaundiced, pale, rash - Neurologic Neurologic: Present: CNII-XII intact. Absent: focal deficits - Musculoskeletal Musculoskeletal: Present: gait normal, strength equal bilaterally - Psychiatric Psychiatric: Present: A&O x's 3, appropriate affect - Labs CBC & Chem 7: 08/16/21 06:28 08/16/21 06:28 Labs: Abnormal Lab Results - Last 24 Hours (Table) 08/16/21 08/16/21 Range/Units 06:28 06:28 RBC 2.93 L (4.30-5.90) m/uL Hgb 7.8 L (13.0-17.5) gm/dL Hct 25.4 L (39.0-53.0) % MCHC 30.7 L (31.0-37.0) g/dL RDW 16.5 H (11.5-15.5) % Plt Count 544 H (150-450) k/uL Creatinine 0.52 L (0.66-1.25) mg/dL ALT 53 H (4-49) U/L Total Protein 5.6 L (6.3-8.2) g/dL Albumin 2.5 L (3.5-5.0) g/dL Assessment and Plan Plan: Acute hypoxic respiratory failure -Stable at rest on 4 L. Oxygen saturation drops down to the 80s with ambulation however -Patient was on 3 L of oxygen at home, home O2 requirement will need to be reassessed prior to discharge -Multifactorial: Secondary to pneumothorax, advanced COPD/emphysema, histoplasmosis pneumonia -Chest tube removed on 08/13/2021 -patient to be discharged Tuesday per pulmonology Normocytic anemia -Hemoglobin dropped to 7.8 down from 8.8 -No signs of active bleeding, no dark or bloody stools -Repeat hemoglobin and transfuse if less than 7 -Check iron studies Histoplasmosis pneumonia -Improving, continue itraconazole -Patient further recommendations from infectious disease Advanced COPD with bullous emphysema -Improving -Continue bronchodilators -Supplemental oxygen to maintain saturation greater than 90% Chronic systolic congestive heart failure and LV dysfunction history -No signs of decompensation echocardiogram shows EF 30-35%, recommend conservative management from their perspective. As a patient not a candidate for any intervention at this time -Fluid restrictions Elevated cardiac troponin secondary to ACS versus demand ischemia -Resolving -Secondary type II CT in the setting of acute hypoxia, pneumothorax, COPD, h istoplasmosis -No further workup per cardiology at this time anticipate discharge home tomorrow Time with Patient: Less than 30
--- NOTE | 2021-08-16 17:40 | P.PN ---
Subjective Progress Note Date: 08/16/21 Principal diagnosis: Pulmonary histoplasmosis Patient is a 56-year-old male with a past medical history significant for advanced COPD extensive emphysema in this patient who was recently diagnosed with extensive pneumonia secondary to pulmonary histoplasmosis on the basis of a positive serum as well as urine and vision and the patient has been treated with Sporanox, presenting back to the hospital with increasing shortness of breath and noticed to have left-sided pneumothorax requiring a chest tube placement which was discontinued on 08/13/2021 . On today's evaluation that is 08/16/2021 the patient continues to be afebrile, the patient is breathing comfortably on 4 L nasal cannula oxygen, the patient left-sided chest pain has resolved, the patient did have mild cough but no not bringing up any sputum, the patient denies nausea vomiting abdominal pain no di arrhea Objective - Vital Signs Vital signs: Vital Signs Temp 98.1 F 08/16/21 08:59 Pulse 92 08/16/21 16:14 Resp 20 08/16/21 11:07 BP 109/68 08/16/21 11:07 Pulse Ox 98 08/16/21 11:07 Intake & Output 08/15/21 08/16/21 08/16/21 18:59 06:59 18:59 Intake Total 1400 485 240 Output Total 2 Balance 1398 485 240 Intake: Oral 1400 485 240 Output: Urine 2 Stool 0 Other: Voiding Method Urinal Urinal Urinal # Voids 2 ABP, PAP, CO, CI - Last Documented Arterial Blood Pressure 109/55 - Exam GENERAL DESCRIPTION: Middle-aged male lying in bed in no distress RESPIRATORY SYSTEM: Unlabored breathing , decreased breath sounds at bases HEART: S1 S2 regular rate and rhythm , ABDOMEN: Soft , no tenderness EXTREMITIES: No edema feet - Labs CBC & Chem 7: 08/16/21 06:28 08/16/21 06:28 Labs: Abnormal Lab Results - Last 24 Hours (Table) 08/16/21 08/16/21 Range/Units 06:28 06:28 RBC 2.93 L (4.30-5.90) m/uL Hgb 7.8 L (13.0-17.5) gm/dL Hct 25.4 L (39.0-53.0) % MCHC 30.7 L (31.0-37.0) g/dL RDW 16.5 H (11.5-15.5) % Plt Count 544 H (150-450) k/uL Creatinine 0.52 L (0.66-1.25) mg/dL ALT 53 H (4-49) U/L Total Protein 5.6 L (6.3-8.2) g/dL Albumin 2.5 L (3.5-5.0) g/dL Assessment and Plan (1) Pneumonia Current Visit: No Status: Acute Code(s): J18.9 - PNEUMONIA, UNSPECIFIED ORGANISM SNOMED Code(s): 224791901 Plan: 1patient with COPD with extensive emphysema and recent diagnosis of histoplasma pneumonia on the basis of positive urine and serum antigen no admit to the hospital with large pneumothorax questionable related to the fall versus to his extensive emphysema in this patient who is status post chest tube placement this admission , currently being treated initially with chest tube and is being followed by pulmonary and CT surgery, the patient did have a fever 1 during this admission however no fever since then and blood stained sputum cultures remains to be negative 2patient is slowly clinically improving and the patient will continue with Sporanox 200 mg 3 times a day and will check his voriconazole level with a.m. labs Time with Patient: Less than 30
[2021-08-16] MEDS: ATORVASTATIN 40 MG TAB PO SCH (22:06)
[2021-08-17] MEDS: HYDROmorphone 1 MG/ML 1 ML SYRINGE IVP PRN ×2 (00:25→23:46)
[2021-08-17] MEDS: ALPRAZolam 0.25 MG TAB PO PRN ×2 (00:26→23:47)
[2021-08-17] MEDS: SODIUM CHLORIDE 0.9% 1,000 ML IV SCH ×2 (01:02→22:04)
[2021-08-17] MEDS: PANTOPRAZOLE 40 MG/10 ML VIAL IV SCH ×2 (07:55→20:22)
[2021-08-17 10:03] LABS: ALT 51 U/L (10-49); AST 20 U/L (14-35); African American GFR (CKD) 129.4 (60.0-200.0); Albumin 2.7 g/dL (3.8-4.9); Alkaline Phosphatase 82 U/L (41-126); Blood Urea Nitrogen 15.9 mg/dL (9.0-27.0); Calcium 8.9 mg/dL (8.7-10.3); Carbon Dioxide 26.3 mmol/L (20.0-27.5); Chloride 103 mmol/L (96-109); Globulin 2.7 g/dL (1.6-3.3); Glucose 96 mg/dL (70-110); Non-African American GFR(CKD) 111.6 (60.0-200.0); Potassium 4.4 mmol/L (3.5-5.5); Sodium 139 mmol/L (135-145); Total Bilirubin <0.15 mg/dL (0.30-1.20); Total Protein 5.4 g/dL (6.2-8.2)
[2021-08-17 10:10] LABS: Basophils # (A) 0.06 X 10*3/uL (0.00-0.10); Basophils % (A) 0.8 %; Eosinophils # (A) 0.48 X 10*3/uL (0.04-0.35); Eosinophils % (A) 6.1 %; HGB 7.1 g/dL (13.0-17.0); Immature Grans, Automated 1.7 %; Lymphocytes # (A) 1.26 X 10*3/uL (0.90-5.00); MCH 25.4 pg (27.0-32.0); MCHC 28.4 g/dL (32.0-37.0); MCV 89.6 fL (80.0-97.0); Mean Platelet Volume 10.6 fL (9.5-12.2); Monocytes % (A) 8.9 %; NRBC Per 100 WBC 0 /100 WBCS (0.0-0.0); Neutrophils # (A) 5.23 X 10*3/uL (1.80-7.70); Neutrophils % (A) 66.5 %; Platelet Count 528 X 10*3/uL (140-440); RBC 2.79 X 10*6/uL (4.40-5.60); RDW 16.7 % (11.5-14.5); WBC 7.86 X 10*3/uL (4.50-10.00)
[2021-08-17] MEDS: ENOXAPARIN 40 MG/0.4 ML SYRINGE SQ SCH (10:43)
[2021-08-17] MEDS: TRELEGY INHALATION SCH (10:43)
[2021-08-17] MEDS: ASPIRIN 81 MG PO SCH (10:52)
[2021-08-17] MEDS: NICOTINE 21MG/24HR PATCH TRANSDERM SCH (10:52)
[2021-08-17] MEDS: carvediloL 6.25 MG TAB PO SCH ×2 (10:52→18:37)
[2021-08-17] MEDS: OXYMETAZOLINE 0.05% NASL SPRAY 1 SPRAY BOTTLE NASAL SCH ×2 (10:53→20:22)
[2021-08-17] MEDS: NON FORMULARY DRUG (Buprenorphine Hcl/Naloxone Hcl [Suboxone 8 Mg-2 Mg Sl Film] 1 EACH Fil SUBLINGUAL SCH ×3 (11:21→21:52)
[2021-08-17] MEDS: ITRACONAZOLE 100 MG CAP PO SCH ×3 (11:30→21:52)
--- NOTE | 2021-08-17 12:29 | XR ---
EXAMINATION TYPE: XR chest 1V portable DATE OF EXAM: 08/17/2021 COMPARISON: Chest x-ray 08/16/2021 HISTORY: Shortness of breath TECHNIQUE: Single frontal view of the chest is obtained. FINDINGS: Right-sided PICC line is coursing with the tip in the right atrium, there is a generator i n the left pectoral region and leads within the right ventricle. Biapical abnormal density within the lungs again noted. No evident pneumothorax or pleural effusion. Cardiac mediastinal sweat is stable. Persistent patchy density present at the lung bases. IMPRESSION: Correlate for pneumonia. There is underlying emphysema
[2021-08-17 13:42] LABS: % Iron Saturation 9.49 (15.00-50.00); Iron 27 ug/dL (65-175); Total Iron Binding Capacity 281 ug/dL (228-460)
--- NOTE | 2021-08-17 14:18 | P.PN ---
Subjective Patient was examined at bedside today not complaining of any worsening shortness of breath, chest pain or palpitations. I also did discuss the case with RN we have noticed a drop in hemoglobin and also dark tarry stools as per patient. Objective - Vital Signs Vital signs: Vital Signs Temp 97.5 F L 08/17/21 13:48 Pulse 89 08/17/21 13:48 Resp 19 08/17/21 13:48 BP 107/71 08/17/21 13:48 Pulse Ox 94 L 08/17/21 13:48 Intake & Output 08/16/21 08/17/21 08/17/21 18:59 06:59 18:59 Intake Total 240 Balance 240 Weight 74 kg Intake: Oral 240 Other: Voiding Method Urinal Toilet Urinal # Bowel Movements 1 ABP, PAP, CO, CI - Last Documented Arterial Blood Pressure 109/55 - Exam Constitutional: Awake alert oriented 3 today. Neck: Supple, no masses, or JVD, significant subcutaneous emphysema No carotid bruits No thyromegaly Lungs: Some rhonchi appreciated no wheezing Normal respiratory effort, no accessory muscle use Cardiovascular: Heart regular in rate and rhythm, No murmurs, gallops, or rubs No peripheral edema Abdominal: Soft Nontender, no guarding, rebound or rigidity Abdomen moving with respiration Skin: Significant subcutaneous emphysema and crepitation over the anterior chest, left-sided pigtail type of chest tube inserted in place Extremities: No digital cyanosis Clubbing toes - Labs CBC & Chem 7: 08/17/21 03:32 08/17/21 03:32 Labs: Abnormal Lab Results - Last 24 Hours (Table) 08/17/21 08/17/21 Range/Units 03:32 03:32 RBC 2.79 L (4.40-5.60) X 10*6/uL Hgb 7.1 L (13.0-17.0) g/dL Hct 25.0 L (39.6-50.0) % MCH 25.4 L (27.0-32.0) pg MCHC 28.4 L (32.0-37.0) g/dL RDW 16.7 H (11.5-14.5) % Plt Count 528 H (140-440) X 10*3/uL Immature Gran # 0.13 H (0.00-0.04) X 10*3/uL Eosinophils # 0.48 H (0.04-0.35) X 10*3/uL Anion Gap 9.70 L (10.00-18.00) mmol/L BUN/Creatinine Ratio 26.50 H (12.00-20.00) Ratio Iron 27 L (65-175) ug/dL % Saturation 9.49 L (15.00-50.00) Transferrin 201.0 L (204.0-354.0) mg/dL Total Bilirubin <0.15 L (0.30-1.20) mg/dL ALT 51 H (10-49) U/L Total Protein 5.4 L (6.2-8.2) g/dL Albumin 2.7 L (3.8-4.9) g/dL Albumin/Globulin Ratio 1.00 L (1.60-3.17) g/dL Assessment and Plan Assessment: Assessment: #1 acute hypoxic respiratory failure secondary to underlying histoplasmosis #2 tension pneumothorax left-sided status post chest tube improved #3 recent history of GI bleed #4 elevated cardiac troponin secondary to ACS versus demand ischemia #5 history of histoplasmosis #6 history of congestive heart failure with ICD in place #7 acute blood loss anemia r/o GI bleed. Plan: -Patient currently admitted to ICU level of care -Aspiration/fall precaution/HOB 30 -Continue with itraconazole and follow levels as per ID -Drop in hemoglobin noted will consult GI and monitor hemoglobin at 7 pm. Transfuse if hemoglobin less than 7 -Fecal occult positive. -DVT prophylaxis Lovenox currently hold. Prognosis unfortunately poor
--- NOTE | 2021-08-17 14:20 | P.PN ---
Subjective Progress Note Date: 08/17/21 Principal diagnosis: Shortness of breath On 08/16/2021 patient seen in follow-up on medical surgical floor. He looks quite comfortable, he is awake and alert, very pleasant, cooperative, breathing comfortably, on 4 L of oxygen his pulse ox is 98%, his been afebrile, vital sign s have been stable. His chest x-ray today showing persisting cavitary consolidative process within the upper lobes with air fluid level seen, patient is status post left-sided pneumothorax requiring chest tube placement which had been removed a few days ago. No evidence of pneumothorax on the chest x-ray. Vital signs have been stable. Patient has no specific complaints. As been tolerating ambulation, she remains on Itraconazole, he remains on nebulized bronchodilators. Sputum culture had shown no growth. Today's labs have been reviewed with blood cell, 6.3, hemoglobin is 7.8, electrolytes and renal profile were within normal limits. On 08/17/2021 patient seen in follow-up on medical surgical floor. Yesterday she was transferred out of intensive care unit, denies any worsening dyspnea, no cough, no chest pain, he states he is a slightly anxious today, with tremor in his hands. But no worsening cough, no fever or chills, he remains on Itraconazole, remains on nebulized bronchodilators. His chest x-ray today showed no evident pneumothorax or pleural effusion. And persistent patchy density present at the lung bases. Today patient's hemoglobin noted to be trending down and is down to 7.1 compared to 7.8 on yesterday's labs, and hemoglobin of 8.82 days prior to that, platelet count is 528. Occult stool was positive, no complaints of abdominal discomfort, he continues on prophylactic Lovenox, he is on 81 mg of aspirin on a daily basis. He remains on IV Protonix 40 mg twice daily. GI service has been consulted Objective - Vital Signs Vital signs: Vital Signs Temp 97.5 F L 08/17/21 13:48 Pulse 89 08/17/21 13:48 Resp 19 08/17/21 13:48 BP 107/71 08/17/21 13:48 Pulse Ox 94 L 08/17/21 13:48 Intake & Output 08/16/21 08/17/21 08/17/21 18:59 06:59 18:59 Intake Total 240 Balance 240 Weight 74 kg Intake: Oral 240 Other: Voiding Method Urinal Toilet Urinal # Bowel Movements 1 ABP, PAP, CO, CI - Last Documented Arterial Blood Pressure 109/55 - Exam GENERAL EXAM: Alert, very pleasant, 56-year-old white male on 4 L of oxygen pulse ox 98% comfortable in no apparent distress. HEAD: Normocephalic/atraumatic. EYES: Normal reaction of pupils, equal size. Conjunctiva pink, sclera white. NOSE: Clear with pink turbinates. THROAT: No erythema or exudates. NECK: No masses, no JVD, no thyroid enlargement, no adenopathy. CHEST: No chest wall deformity. Symmetrical expansion. LUNGS: Diminished air entry with no crackles, wheeze, rhonchi or dullness. CVS: Regular rate and rhythm, normal S1 and S2, no gallops, no murmurs, no rubs ABDOMEN: Soft, nontender. No hepatosplenomegaly, normal bowel sounds, no guarding or rigidity. EXTREMITIES: No clubbing, no edema, no cyanosis, 2+ pulses and upper and lower extremities. MUSCULOSKELETAL: Muscle strength and tone normal. SPINE: No scoliosis or deformity SKIN: No rashes CENTRAL NERVOUS SYSTEM: Alert and oriented -3. No focal deficits, tone is normal in all 4 extremities. PSYCHIATRIC: Alert and oriented -3. Appropriate affect. Intact judgment and insight. - Labs CBC & Chem 7: 08/17/21 03:32 08/17/21 03:32 Labs: Abnormal Lab Results - Last 24 Hours (Table) 08/17/21 08/17/21 Range/Units 03:32 03:32 RBC 2.79 L (4.40-5.60) X 10*6/uL Hgb 7.1 L (13.0-17.0) g/dL Hct 25.0 L (39.6-50.0) % MCH 25.4 L (27.0-32.0) pg MCHC 28.4 L (32.0-37.0) g/dL RDW 16.7 H (11.5-14.5) % Plt Count 528 H (140-440) X 10*3/uL Immature Gran # 0.13 H (0.00-0.04) X 10*3/uL Eosinophils # 0.48 H (0.04-0.35) X 10*3/uL Anion Gap 9.70 L (10.00-18.00) mmol/L BUN/Creatinine Ratio 26.50 H (12.00-20.00) Ratio Iron 27 L (65-175) ug/dL % Saturation 9.49 L (15.00-50.00) Transferrin 201.0 L (204.0-354.0) mg/dL Total Bilirubin <0.15 L (0.30-1.20) mg/dL ALT 51 H (10-49) U/L Total Protein 5.4 L (6.2-8.2) g/dL Albumin 2.7 L (3.8-4.9) g/dL Albumin/Globulin Ratio 1.00 L (1.60-3.17) g/dL Assessment and Plan Plan: #1. Acute hypoxic respiratory failure related to a large secondary pneumothorax, a complication of bullous emphysema and histoplasma pneumonia #2. Acute left-sided pneumothorax requiring chest tube placement, which was subsequently removed post reinflation of the left lung #3. 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 Chronic systolic CHF and LV dysfunction with history of non-ST elevated myocardial infarction #5. Histoplasma pneumonia involving the upper lobes #6. Coronary artery disease and previous myocardial infarction #7. History of atrial fibrillation #8. History of pacemaker implantation #9. History of bilateral inguinal hernia repair #10. Generalized anxiety disorder #11. Acute blood loss anemia, hemoglobin is down to 7.1, with positive occult blood Plan: From pulmonary perspective patient remains stable No worsening dyspnea No chest discomfort no cough, no fever or chills He is being worked up for possible GI blood loss anemia GI service has been consulted for downtrending hemoglobin, and positive occult stool He can be considered for discharge from pulmonary perspective when cleared by GI service and medicine I have personally seen and examined the patient, performed the documentation and the assessment and plan as written. Number of minutes spent on the visit: [10] Time with Patient: Less than 30
[2021-08-17 19:23] LABS: Anisocytosis Slight; HCT 28.2 % (39.0-53.0); HGB 8.5 gm/dL (13.0-17.5); Hypochromasia Marked; MCH 26.2 pg (25.0-35.0); MCHC 30.1 g/dL (31.0-37.0); MCV 86.9 fL (80.0-100.0); Mean Platelet Volume 7.4; Platelet Count 568 k/uL (150-450); Poikilocytosis Slight; RBC 3.25 m/uL (4.30-5.90); RDW 16.3 % (11.5-15.5); WBC 9.3 k/uL (3.8-10.6)
[2021-08-17] MEDS: ATORVASTATIN 40 MG TAB PO SCH (20:22)
--- NOTE | 2021-08-17 21:04 | P.PN ---
Subjective Progress Note Date: 08/17/21 Principal diagnosis: Pulmonary histoplasmosis Patient is a 56-year-old male with a past medical history significant for advanced COPD extensive emphysema in this patient who was recently diagnosed with extensive pneumonia secondary to pulmonary histoplasmosis on the basis of a positive serum as well as urine and vision and the patient has been treated with Sporanox, presenting back to the hospital with increasing shortness of breath and noticed to have left-sided pneumothorax requiring a chest tube placement which was discontinued on 08/13/2021 . On today's evaluation that is 08/17/2021 the patient remains to be afebrile, the patient is breathing comfortably on 4 L nasal cannula oxygen, the patient left- sided chest pain has resolved, the patient did have mild cough but no sputum, he denies having abdominal pain however the patient was noticed to have a black stool Objective - Vital Signs Vital signs: Vital Signs Temp 97.6 F 08/17/21 07:37 Pulse 91 08/17/21 07:37 Resp 19 08/17/21 07:37 BP 116/74 08/17/21 07:37 Pulse Ox 97 08/17/21 07:37 Intake & Output 08/16/21 08/17/21 08/17/21 18:59 06:59 18:59 Intake Total 240 Balance 240 Weight 74 kg Intake: Oral 240 Other: Voiding Method Urinal Toilet Urinal # Bowel Movements 1 ABP, PAP, CO, CI - Last Documented Arterial Blood Pressure 109/55 - Exam GENERAL DESCRIPTION: Middle-aged male lying in bed in no distress RESPIRATORY SYSTEM: Unlabored breathing , decreased breath sounds at bases HEART: S1 S2 regular rate and rhythm , ABDOMEN: Soft , no tenderness EXTREMITIES: No edema feet - Labs CBC & Chem 7: 08/17/21 19:03 08/17/21 03:32 Labs: Abnormal Lab Results - Last 24 Hours (Table) 08/17/21 08/17/21 Range/Units 03:32 03:32 RBC 2.79 L (4.40-5.60) X 10*6/uL Hgb 7.1 L (13.0-17.0) g/dL Hct 25.0 L (39.6-50.0) % MCH 25.4 L (27.0-32.0) pg MCHC 28.4 L (32.0-37.0) g/dL RDW 16.7 H (11.5-14.5) % Plt Count 528 H (140-440) X 10*3/uL Immature Gran # 0.13 H (0.00-0.04) X 10*3/uL Eosinophils # 0.48 H (0.04-0.35) X 10*3/uL Anion Gap 9.70 L (10.00-18.00) mmol/L BUN/Creatinine Ratio 26.50 H (12.00-20.00) Ratio Total Bilirubin <0.15 L (0.30-1.20) mg/dL ALT 51 H (10-49) U/L Total Protein 5.4 L (6.2-8.2) g/dL Albumin 2.7 L (3.8-4.9) g/dL Albumin/Globulin Ratio 1.00 L (1.60-3.17) g/dL Assessment and Plan (1) Pneumonia Current Visit: No Status: Acute Code(s): J18.9 - PNEUMONIA, UNSPECIFIED ORGANISM SNOMED Code(s): 741204142 Plan: 1patient with COPD with extensive emphysema and recent diagnosis of histoplasma pneumonia on the basis of positive urine and serum antigen no admit to the hospital with large pneumothorax questionable related to the fall versus to his extensive emphysema in this patient who is status post chest tube placement this admission , currently being treated initially with chest tube and is being followed by pulmonary and CT surgery, the patient did have a fever 1 during this admission however no fever since then and blood stained sputum cultures remains to be negative 2patient to continue with Sporanox 200 mg 3 times a day 3-GI bleed and anemia GI services has been consulted Time with Patient: Less than 30
[2021-08-17] MEDS: IPRATROPIUM-ALBUTEROL 3 ML NEB INHALATION PRN (21:17)
[2021-08-18 07:48] VITALS: RESP 19
[2021-08-18] MEDS: carvediloL 6.25 MG TAB PO SCH (08:38)
[2021-08-18] MEDS: PANTOPRAZOLE 40 MG/10 ML VIAL IV SCH (08:38)
[2021-08-18] MEDS: ITRACONAZOLE 100 MG CAP PO SCH (08:39)
[2021-08-18] MEDS: NICOTINE 21MG/24HR PATCH TRANSDERM SCH (08:39)
[2021-08-18] MEDS: ASPIRIN 81 MG PO SCH (08:39)
[2021-08-18] MEDS: TRELEGY INHALATION SCH (08:40)
[2021-08-18] MEDS: OXYMETAZOLINE 0.05% NASL SPRAY 1 SPRAY BOTTLE NASAL SCH (08:40)
[2021-08-18] MEDS: IPRATROPIUM-ALBUTEROL 3 ML NEB INHALATION PRN (08:53)
[2021-08-18] MEDS: NON FORMULARY DRUG (Buprenorphine Hcl/Naloxone Hcl [Suboxone 8 Mg-2 Mg Sl Film] 1 EACH Fil SUBLINGUAL SCH (09:15)
[2021-08-18 09:30] LABS: Anisocytosis Slight; Basophils # (A) 0.1 k/uL (0-0.2); Basophils % (A) 1 %; Eosinophils # (A) 0.5 k/uL (0-0.7); Eosinophils % (A) 5 %; HCT 29.8 % (39.0-53.0); Hypochromasia Marked; Lymphocytes # (A) 1.1 k/uL (1.0-4.8); Lymphocytes % (A) 11 %; MCH 26.3 pg (25.0-35.0); MCHC 30.1 g/dL (31.0-37.0); MCV 87.5 fL (80.0-100.0); Mean Platelet Volume 7.8; Monocytes # (A) 0.7 k/uL (0-1.0); Monocytes % (A) 7 %; Neutrophils # (A) 7.6 k/uL (1.3-7.7); Neutrophils % (A) 76 %; Platelet Count 560 k/uL (150-450); Poikilocytosis Slight; RDW 16.5 % (11.5-15.5)
[2021-08-18 09:43] LABS: Potassium 4.1 mmol/L (3.5-5.1)
[2021-08-18 09:44] LABS: African American GFR (CKD) >90 (>60 ml/min/1.73 sqM); Anion Gap 6 mmol/L; Blood Urea Nitrogen 15 mg/dL (9-20); Calcium 8.9 mg/dL (8.4-10.2); Carbon Dioxide 31 mmol/L (22-30); Chloride 101 mmol/L (98-107); Glucose 101 mg/dL (74-99); Non-African American GFR(CKD) >90 (>60 ml/min/1.73 sqM); Sodium 138 mmol/L (137-145)
--- NOTE | 2021-08-18 11:03 | P.PN ---
Subjective Patient was examined at bedside today not complaining of any new symptomatology. He continues to be on 4 L nasal cannula without any significant tachypnea or tachycardia or desaturations noted. Saturating above 95% and very comfortable to conversation. We are still waiting on GIs recommendations. Objective - Vital Signs Vital signs: Vital Signs Temp 98.4 F 08/18/21 07:47 Pulse 89 08/18/21 09:02 Resp 19 08/18/21 07:47 BP 112/70 08/18/21 07:47 Pulse Ox 98 08/18/21 07:47 Intake & Output 08/17/21 08/18/21 08/18/21 18:59 06:59 18:59 Intake Total 1080 Balance 1080 Intake: Oral 1080 Other: # Voids 3 3 # Bowel Movements 1 ABP, PAP, CO, CI - Last Documented Arterial Blood Pressure 109/55 - Exam Constitutional: Awake alert oriented 3 today. Neck: Supple, no masses, or JVD, significant subcutaneous emphysema No carotid bruits No thyromegaly Lungs: Some rhonchi appreciated no wheezing Normal respiratory effort, no accessory muscle use Cardiovascular: Heart regular in rate and rhythm, No murmurs, gallops, or rubs No peripheral edema Abdominal: Soft Nontender, no guarding, rebound or rigidity Abdomen moving with respiration Skin: Significant subcutaneous emphysema and crepitation over the anterior chest, left-sided pigtail type of chest tube inserted in place Extremities: No digital cyanosis Clubbing toes - Labs CBC & Chem 7: 08/18/21 08:59 08/18/21 08:59 Labs: Abnormal Lab Results - Last 24 Hours (Table) 08/17/21 08/17/21 08/18/21 Range/Units 03:32 19:03 08:59 RBC 3.25 L 3.40 L (4.30-5.90) m/uL Hgb 8.5 L 9.0 L (13.0-17.5) gm/dL Hct 28.2 L 29.8 L (39.0-53.0) % MCHC 30.1 L 30.1 L (31.0-37.0) g/dL RDW 16.3 H 16.5 H (11.5-15.5) % Plt Count 568 H 560 H (150-450) k/uL Carbon Dioxide (22-30) mmol/L Creatinine (0.66-1.25) mg/dL Glucose (74-99) mg/dL Iron 27 L (65-175) ug/dL % Saturation 9.49 L (15.00-50.00) Transferrin 201.0 L (204.0-354.0) mg/dL 08/18/21 Range/Units 08:59 RBC (4.30-5.90) m/uL Hgb (13.0-17.5) gm/dL Hct (39.0-53.0) % MCHC (31.0-37.0) g/dL RDW (11.5-15.5) % Plt Count (150-450) k/uL Carbon Dioxide 31 H (22-30) mmol/L Creatinine 0.55 L (0.66-1.25) mg/dL Glucose 101 H (74-99) mg/dL Iron (65-175) ug/dL % Saturation (15.00-50.00) Transferrin (204.0-354.0) mg/dL Assessment and Plan Assessment: Assessment: #1 acute hypoxic respiratory failure secondary to underlying histoplasmosis #2 tension pneumothorax left-sided status post chest tube improved #3 recent history of GI bleed #4 elevated cardiac troponin secondary to ACS versus demand ischemia #5 history of histoplasmosis #6 history of congestive heart failure with ICD in place #7 acute blood loss anemia r/o GI bleed. Plan: -Patient currently admitted to ICU level of care -Aspiration/fall precaution/HOB 30 -Continue with itraconazole and follow levels as per ID -Drop in hemoglobin noted will consult GI and monitor hemoglobin at 7 pm. Transfuse if hemoglobin less than 7 -Repeat hemoglobin stable at 8.5 and 9.0. -Fecal occult positive. -DVT prophylaxis Lovenox currently hold. Prognosis unfortunately guarded
--- NOTE | 2021-08-18 12:03 | P.PN ---
Subjective Progress Note Date: 08/18/21 Principal diagnosis: Acute hypoxic respiratory failure secondary to large secondary pneumothorax, severe COPD, and histoplasma pneumonia The patient is seen today August 18 2021 in follow-up on the regular medical floor. He is currently sitting up at the bedside. Awake and alert in no acute distress. He is maintaining O2 saturations in the 90s on 4 L/m per nasal cannula. Most recent chest x-ray revealed a right-sided PICC line within the tip of the right atrium, left-sided permanent pacemaker implantation, biapical abnormal densities. No evidence of pneumothorax or pleural effusion. Persistent patchy densities to the lung bases. He's been afebrile. Hemodynamically stable. Yesterday he did have some dark stools. Stool positive for occult blood. Normal bowel movement today. White count 10.0. Hemoglobin 9.0. Platelets 560. Sodium 138. Potassium 4.1. Bicarb 31. BUN 15. Creatinine 0.55. Glucose [address] He is continuing Trelegy, DuoNeb inhalations. He remains on Sporanox. Lovenox for DVT prophylaxis. Objective - Vital Signs Vital signs: Vital Signs Temp 98.4 F 08/18/21 07:47 Pulse 89 08/18/21 09:02 Resp 19 08/18/21 07:47 BP 112/70 08/18/21 07:47 Pulse Ox 98 08/18/21 07:47 Intake & Output 08/17/21 08/18/21 08/18/21 18:59 06:59 18:59 Intake Total 1080 Balance 1080 Intake: Oral 1080 Other: # Voids 3 3 # Bowel Movements 1 ABP, PAP, CO, CI - Last Documented Arterial Blood Pressure 109/55 - Exam Gen. appearance: Very pleasant 56-year-old frail, cachectic male patient with a body mass index of 27.1 currently on 4 L of O2 by nasal cannula Head exam was generally normal. There was no scleral icterus or corneal arcus. Mucous membranes were moist. Neck was supple and without jugular venous distension, thyromegaly, or carotid bruits. Carotids were easily palpable bilaterally. There was no adenopathy. Lungs sounds are diminished. Scattered rhonchi. No significant wheezing. Cardiac exam revealed the PMI to be normally situated and sized. The rhythm was regular and no extrasystoles were noted during several minutes of auscultation. The first and second heart sounds were normal and physiologic splitting of the second heart sound was noted. There were no murmurs, rubs, clicks, or gallops. Patient has an AICD pocket over the left anterior chest area. Abdominal exam revealed normal bowel sounds. The abdomen was soft, non-tender, and without masses, organomegaly, or appreciable enlargement of the abdominal aorta. Examination of the extremities revealed Right upper extremity PICC line, easily palpable radial, femoral and pedal pulses. There was no cyanosis, clubbing or edema. Examination of the skin revealed no evidence of significant rashes, suspicious appearing nevi or other concerning lesions. Neurologically the patient awake and alert and following commands and answering questions. Generalized weakness no 4 extremities, no focal neurological de ficits. - Labs CBC & Chem 7: 08/18/21 08:59 08/18/21 08:59 Labs: Abnormal Lab Results - Last 24 Hours (Table) 08/17/21 08/17/21 08/18/21 Range/Units 03:32 19:03 08:59 RBC 3.25 L 3.40 L (4.30-5.90) m/uL Hgb 8.5 L 9.0 L (13.0-17.5) gm/dL Hct 28.2 L 29.8 L (39.0-53.0) % MCHC 30.1 L 30.1 L (31.0-37.0) g/dL RDW 16.3 H 16.5 H (11.5-15.5) % Plt Count 568 H 560 H (150-450) k/uL Carbon Dioxide (22-30) mmol/L Creatinine (0.66-1.25) mg/dL Glucose (74-99) mg/dL Iron 27 L (65-175) ug/dL % Saturation 9.49 L (15.00-50.00) Transferrin 201.0 L (204.0-354.0) mg/dL 08/18/21 Range/Units 08:59 RBC (4.30-5.90) m/uL Hgb (13.0-17.5) gm/dL Hct (39.0-53.0) % MCHC (31.0-37.0) g/dL RDW (11.5-15.5) % Plt Count (150-450) k/uL Carbon Dioxide 31 H (22-30) mmol/L Creatinine 0.55 L (0.66-1.25) mg/dL Glucose 101 H (74-99) mg/dL Iron (65-175) ug/dL % Saturation (15.00-50.00) Transferrin (204.0-354.0) mg/dL Assessment and Plan Assessment: 1 acute hypoxic respiratory failure secondary to a large secondary pneumothorax, a complication of bullous emphysema and pneumonia , status post insertion of a large left-sided chest tube, 32-Turkmen, with reexpansion of the left lung without any complications. The patient was extubated on 07/06/2021 and currently is on 4 L of O2 by nasal cannula. Chest tubes have been removed. 2 large left-sided neck and a pneumothorax, post chest tube insertion and the patient currently is a 32-Turkmen chest tube in place with adequate expansion of the left lung with subsequent removal. Follow-up chest x-ray reveals no significant pneumothorax. 3 advanced COPD with bullous changes in the upper lobes bilaterally 4 acute non-ST segment elevation myocardial infarction with secondary hypotension secondary to above, currently the patient is off pressors.. The patient is known to have chronic systolic heart failure with impaired left ventricular ejection fraction. 5 Histoplasma pneumonia with upper lobe predominance. The patient had bilateral upper lobe pneumonia status post recent bronchoscopy with BAL on 06/24/2021, with negative BAL and viral cultures, COVID-19 PCR was negative. Patient is st atus post repeat bronchoscopy with BAL on 07/07/2021 with transbronchial biopsies of the right middle lobe, brushings and BAL of the right middle lobe, transbronchial biopsies were consistent with organizing pneumonia, BAL cultures negative thus far. Meanwhile, the patient had positive histoplasma antibody titers. Histoplasma serum antigen came back positive. 6 coronary artery disease with previous myocardial infarction 7 history of atrial fibrillation 8 history of pacemaker/SB placement 9 history of CHF with systolic heart failure with an ejection fraction of 3035% 10 history of bilateral inguinal hernia repair 11 history of prescription narcotic abuse currently on Suboxone 12 chronic anxiety 13 chronic and ongoing tobacco dependence 13 anemia with stool for occult blood positive, pending GI evaluation Plan The patient was seen and evaluated Continue bronchodilators, Sporanox Continue to work with the incentive spirometer Again educated regarding the importance of complete smoking cessation NicoDerm patch remains in place Titrate the FiO2 as tolerated We will continue to follow I have personally seen and examined the patient, performed the documentation and the assessment and plan as written. Number of minutes spent on the visit: 10.
--- NOTE | 2021-08-18 13:26 | P.CONS ---
History of Present Illness - Reason for Consult Consult date: 08/18/21 positive occult stool, anemia Requesting physician: Inocencio Hernandez - Chief Complaint shortness of breath, respiratory distress - History of Present Illness This is a 56-year-old male who presented to the emergency department on 08/04/2021 as a transfer with acute respiratory failure due to a large left- sided pneumothorax. He was admitted to the ICU with a chest tube. He has a significant past medical history including COPD, pneumonia, coronary artery disease, proximal atrial fibrillation, history of pacemaker AICD placement for chronic ischemic cardiomyopathy and chronic anxiety. He was also recently seen in our emergency room approximately 3-4 weeks ago for GI bleed which he was sent to [facility] and underwent EGD and colonoscopy. At this time re port is not available. He states that he GD was negative and colonoscopy showed hemorrhoids and nonbleeding ulcer. The patient also has a history of chronic anemia. On admission he was noted to have a hemoglobin of 6.2. He has denied any rectal bleeding. He states then he did have a darker stool a few days ago but has been normal since then. He did have a positive occult stool and gastroenterology was consulted for this reason. He is seen and examined today without any complaints of abdominal pain, nausea, or vomiting. He denies any further dark stools. States his bowel movement today was normal brown stool. He is denying any chest pain and states shortness of breath has improved. He is on 4 L of nasal cannula, oxygen saturation 98%. He is currently not on any anticoagulation, he takes daily aspirin. Review of Systems REVIEW OF SYSTEMS: CARDIOPULMONARY: No chest pain, shortness of breath improved. Gastrointestinal: No abdominal pain. No nausea or vomiting. No hematemesis, coffee-ground emesis. No rectal bleeding, states he had a dark stool 1 day. GENITOURINARY: No dysuria or hematuria. MUSCULOSKELETAL: Reports normal range of motion., Joint pain. SKIN: No rashes. No jaundice. ENDOCRINE: No chills, fevers. No excessive weight gain or loss. No polydipsia or polyuria. PSYCHIATRIC: Unremarkable. NEUROLOGY: No change in mental status. Denies dizziness, headache. ENT: Vision unremarkable. CONSTITUTIONAL: No recent weight loss. No fever, chills, night sweats. Past Medical History Past Medical History: Atrial Fibrillation, Coronary Artery Disease (CAD), Chest Pain / Angina, Heart Failure, COPD, Myocardial Infarction ([place]) Additional Past Medical History / Comment(s): Pt recently sent from [facility] ER to [facility] for lower GI bleed/he states he had endoscopies and was told he had an ulcer/polyps and hemorrhoids, pt also recently admitted to [facility] and treat ed for double pneumonia/sepsis/histoplasmosis infection and was sent home with home oxygen. Other hx: Severe COPD, past norco addiction and is on suboxone past 4 year and it is being weaned down, MIs x3. Last Myocardial Infarction Date:: 2008 History of Any Multi-Drug Resistant Organisms: None Reported Past Surgical History: AICD, Heart Catheterization, Heart Catheterization With Stent, Hernia Repair, Orthopedic Surgery, Pacemaker Additional Past Surgical History / Comment(s): PCI with stents, AICD/pacer, EGD/colonoscopy, bronchoscopies x2, bilateral inguinal hernia repairs, bilateral carpal tunnel releases. Past Anesthesia/Blood Transfusion Reactions: No Reported Reaction Date of Last Stent Placement:: 2010 Type of Cardiac Device: Permanent Pacemaker, AICD Device Placement Date:: 2008 Past Psychological History: No Psychological Hx Reported Additional Psychological History / Comment(s): Pt resides with his spouse. He has home oxygen. Smoking Status: Former smoker Past Alcohol Use History: None Reported Additional Past Alcohol Use History / Comment(s): Pt started smoking in 1978 and had been cutting back then quit end of June 2021 Past Drug Use History: None Reported Additional Drug Use History / Comment(s): Marijuana at night 6 nights a week to sleep - Past Family History Father Family Medical History: No Reported History Additional Family Medical History / Comment(s): Father pt believes d/t his spouses passing. Mother Family Medical History: Myocardial Infarction ([place]) Additional Family Medical History / Comment(s): Mother of a massive [place] at t he age of 53yrs. Medications and Allergies Home Medications Medication Instructions Recorded Confirmed Type Buprenorphine HCl/Naloxone HCl 0.5 film SL TID PRN 03/13/15 08/04/21 History [Suboxone 8 mg-2 mg Sl Film] Aspirin [Adult Low Dose Aspirin EC] 81 tab PO DAILY 03/28/17 08/04/21 History Albuterol Inhaler [Ventolin Hfa 2 puff INHALATION RT-QID PRN 06/19/21 08/04/21 History Inhaler] Atorvastatin [Lipitor] 40 mg PO HS 06/19/21 08/04/21 History Fluticasone/Umeclidin/Vilanter 1 puff INHALATION RT-DAILY 06/19/21 08/04/21 History [Trelejagruti Ellipta 200-62.5-25] Nicotine 21Mg/24Hr Patch [Habitrol] 1 patch TRANSDERM DAILY 06/19/21 08/04/21 History carvediloL [Coreg] 3.125 mg PO HS 06/29/21 08/04/21 History Acetaminophen Tab [Tylenol] 650 mg PO Q6HR PRN tab 07/03/21 08/04/21 Rx Furosemide [Lasix] 60 mg PO DAILY #45 tab 07/31/21 08/04/21 Rx Itraconazole [Sporanox] 200 mg PO TID 30 Days #120 capsule 07/31/21 08/04/21 Rx Pantoprazole [Protonix] 40 mg PO DAILY@1200 08/04/21 08/04/21 History Sodium Chloride 0.65% Nasal [Deep 1 spray EA NOSTRIL Q4HR PRN 08/04/21 08/04/21 History Sea (Saline)] Allergies Allergy/AdvReac Type Severity Reaction Status Date / Time clopidogrel bisulfate Allergy Anaphylaxis Verified 08/04/21 21:41 [From Plavix] Physical Exam Vitals: Vital Signs Temp Pulse Pulse Resp BP Pulse Ox 08/18/21 09:02 89 08/18/21 08:54 90 08/18/21 07:47 98.4 F 89 19 112/70 98 08/17/21 23:52 98.1 F 87 20 113/71 95 08/17/21 21:30 92 08/17/21 21:19 88 08/17/21 17:17 97.8 F 94 19 124/69 96 08/17/21 13:48 97.5 F L 89 19 107/71 94 L Intake and Output 08/17/21 08/18/21 08/18/21 22:59 06:59 14:59 Intake Total 1080 Balance 1080 Intake: Oral 1080 Other: # Voids 3 3 # Bowel Movements 1 General appearance: The patient is alert, oriented, appears in no acute distress . HET: Head is normocephalic and atraumatic. Conjunctiva pink. Sclera anicteric. Neck: Supple without lymphadenopathy. Trachea midline. Heart: S1 S2. Regular rate and rhythm. Lungs: Diminished, scattered rhonchi. Abdomen: Soft, nontender, nondistended with bowel sounds. No guarding or rigidity. Skin: No rashes. No jaundice. Extremities: Normal skin color and turgor. No pedal edema. Neurological: No focal deficits. Alert and oriented x3. Results CBC & Chem 7: 08/18/21 08:59 08/18/21 08:59 Labs: Abnormal Lab Results - Last 24 Hours (Table) 08/17/21 08/17/21 08/17/21 Range/Units 03:32 03:32 19:03 RBC 2.79 L 3.25 L (4.40-5.60) X 10*6/uL Hgb 7.1 L 8.5 L (13.0-17.0) g/dL Hct 25.0 L 28.2 L (39.6-50.0) % MCH 25.4 L (27.0-32.0) pg MCHC 28.4 L 30.1 L (32.0-37.0) g/dL RDW 16.7 H 16.3 H (11.5-14.5) % Plt Count 528 H 568 H (140-440) X 10*3/uL Immature Gran # 0.13 H (0.00-0.04) X 10*3/uL Eosinophils # 0.48 H (0.04-0.35) X 10*3/uL Carbon Dioxide (22-30) mmol/L Creatinine (0.66-1.25) mg/dL Glucose (74-99) mg/dL Iron 27 L (65-175) ug/dL % Saturation 9.49 L (15.00-50.00) Transferrin 201.0 L (204.0-354.0) mg/dL 08/18/21 08/18/21 Range/Units 08:59 08:59 RBC 3.40 L (4.40-5.60) X 10*6/uL Hgb 9.0 L (13.0-17.0) g/dL Hct 29.8 L (39.6-50.0) % MCH (27.0-32.0) pg MCHC 30.1 L (32.0-37.0) g/dL RDW 16.5 H (11.5-14.5) % Plt Count 560 H (140-440) X 10*3/uL Immature Gran # (0.00-0.04) X 10*3/uL Eosinophils # (0.04-0.35) X 10*3/uL Carbon Dioxide 31 H (22-30) mmol/L Creatinine 0.55 L (0.66-1.25) mg/dL Glucose 101 H (74-99) mg/dL Iron (65-175) ug/dL % Saturation (15.00-50.00) Transferrin (204.0-354.0) mg/dL Assessment and Plan (1) Anemia Narrative/Plan: Assessment 56-year-old with multiple comorbidities who was admitted 2 weeks ago for acute respiratory failure with a left-sided pneumothorax. Patient also has a history of a recent GI bleed approximately 3 weeks ago was transferred to [facility] is there is no GI present here. He had an EGD and colonoscopy for which he reports EGD was within normal limits and colonoscopy showed colon polyps, ulcer and hemorrhoids. He denies any current rectal bleeding or blood in his stool. He states he did have one episode of dark stool 2-3 days ago but has been normal since then. Hemoglobin has been been improving with a repeat today of 9.0. Labs are consistent with a normochromic normocytic anemia likely related to multiple comorbidities. As patient has had a recent EGD and colonoscopy further endoscopic evaluation at this time. hemoglobin is stable, patient may be discharged home from a gastroenterology standpoint. continue with protonix as ordered. follow-up with dr. webber in 3-4 weeks. Current Visit: Yes Status: Acute Code(s): D64.9 - ANEMIA, UNSPECIFIED SNOMED Code(s): 745429616 (2) Acute respiratory failure Current Visit: Yes Status: Acute Code(s): J96.00 - ACUTE RESPIRATORY FAILURE, UNSP W HYPOXIA OR HYPERCAPNIA SNOMED Code(s): 94553241 (3) CAD (coronary artery disease) Current Visit: Yes Status: Acute Code(s): I25.10 - ATHSCL HEART DISEASE OF [place] CORONARY ARTERY W/O ANG PCTRS SNOMED Code(s): 19764086 (4) COPD (chronic obstructive pulmonary disease) Current Visit: Yes Status: Acute Code(s): J44.9 - CHRONIC OBSTRUCTIVE PULMONARY DISEASE, UNSPECIFIED SNOMED Code(s): 05441981 (5) Cardiomyopathy Current Visit: Yes Status: Acute Code(s): I42.9 - CARDIOMYOPATHY, UNSPECIFIED SNOMED Code(s): 17306217 Plan: 1. Continue diet as tolerated 2. Continue Protonix 40 mg twice a day 3. Please try to obtain EGD and colonoscopy from [facility] 4. No plans on endoscopic evaluation as patient recently had EGD and colonoscopy approximately 3 weeks ago Thank you for this consultation, patient is cleared by gastroenterology for discharge. Follow-up in 3-[address] Emily Webber I agree with the dictator's note, documented as a scribe by Ebony Nobles.
--- NOTE | 2021-08-18 13:45 | P.DS ---
Providers Date of admission: 08/04/21 22:42 Attending physician: Edgardo Villalobos MD Consults: 08/04/21 22:42 Consult Physician Stat Consulting Provider: Marisol Lundberg Consult Reason/Comments: Respiratory failure, left pneumothorax, ICU care Do you want consulting provider notified?: Already Contacted 08/04/21 22:47 Consult Physician Routine Consulting Provider: Guru Otto Consult Reason/Comments: Elevated troponin/N STEMI Do you want consulting provider notified?: Already Contacted 08/05/21 01:39 Consult Physician Routine Consulting Provider: Adryan Hankins Consult Reason/Comments: histoplasmosis Do you want consulting provider notified?: Yes, Notify in am 08/12/21 10:14 Consult Physician Routine Consulting Provider: Idris Patel Consult Reason/Comments: Continued left chest tube leak Do you want consulting provider notified?: Already Contacted 08/17/21 11:48 Consult Physician Routine Consulting Provider: Lisa Webber Consult Reason/Comments: positive occult stool, hgb dropping, history of GI bleeds Do you want consulting provider notified?: Yes Primary care physician: Celso Garcia MD Hospital Course: 56-year-old male with recent hospitalization diagnosed with histoplasmosis Patient unable to provide any meaningful history currently intubated and sedated Per reports patient had sudden onset shortness of breath , he was complaining of chest pain for several days with sudden worsening today, for which she was taken to the [facility] he was diagnosed with pneumothorax left pigtail drain was inserted patient was intubated to hypoxic respiratory failure was sent to our facility for further treatment Upon evaluating the patient he was noticed to have new onset subcutaneous emphysema repeat x-ray showed worsening left sided pneumothorax with tension affect resulting in deviation of the trachea and shifting of the heart apparently the chest to valve was off was switched to the open position patient oxygenation started improving we'll repeat chest x-ray at the later time to confirm improvement in left-sided pneumothorax Patient had an extensive hospital course he was originally admitted on 08/04/2021 into the intensive care unit. The patient had acute hypoxic respiratory failure secondary to large secondary no thorax a competition of bullous emphysema and pneumonia for which the patient was treated outpatient. Patient was intubated and on mechanical ventilation as per ICU protocol. Chest tube management was completed by pulmonary. Infectious disease was also on board patient did continue medication as per the recommendations. Eventually chest tube was removed patient was transferred out of the intensive care unit and he has been monitored on the medical floor. His oxygen saturations have returned back to baseline around 3-4 L saturating above 90% he is not tachycardic or tachypneic during my examination today. 20 [facility] with pulmonary that is recommended to continue same medications as home and he is okay to be discharged from their perspective. Unfortunately prior to discharge patient's hemoglobin was found to be decreasing with stool occult positive. His hemoglobin dropped from 8.8 to 7. 1 repeat CBC was completed which showed a hemoglobin of 9.0. Gastrology was consulted and recommended outpatient follow-up with gastrology for EGD/colonoscopy. The patient is okay to be discharged from their perspective and to continue with Protonix. I also coronary care with infectious disease that is recommended to discharge the patient from their perspective and follow palpation. Patient does have all scripts and refills that is Ardee been coordinate with an by ID. Patient Condition at Discharge: Critical Plan - Discharge Summary Discharge Rx Participant: Yes New Discharge Prescriptions: New carvediloL [Coreg] 6.25 mg PO BID-W/MEALS 30 Days #60 tab Continue Buprenorphine HCl/Naloxone HCl [Suboxone 8 mg-2 mg Sl Film] 0.5 film SL TID PRN PRN Reason: Pain/Withdrawal Aspirin [Adult Low Dose Aspirin EC] 81 tab PO DAILY Nicotine 21Mg/24Hr Patch [Habitrol] 1 patch TRANSDERM DAILY Atorvastatin [Lipitor] 40 mg PO HS Sodium Chloride 0.65% Nasal [Deep Sea (Saline)] 1 spray EA NOSTRIL Q4HR PRN PRN Reason: Dry Nasal Passages Albuterol Inhaler [Ventolin Hfa Inhaler] 2 puff INHALATION RT-QID PRN PRN Reason: Shortness Of Breath Fluticasone/Umeclidin/Vilanter [Trelegy Ellipta 200-62.5-25] 1 puff INHALATION RT-DAILY Acetaminophen Tab [Tylenol] 650 mg PO Q6HR PRN tab PRN Reason: Fever And/ Or Pain Itraconazole [Sporanox] 200 mg PO TID 30 Days #120 capsule Pantoprazole [Protonix] 40 mg PO DAILY@1200 Discontinued carvediloL [Coreg] 3.125 mg PO HS Furosemide [Lasix] 60 mg PO DAILY #45 tab Discharge Medication List Buprenorphine HCl/Naloxone HCl [Suboxone 8 mg-2 mg Sl Film] 0.5 film SL TID PRN 03/13/15 [History] Aspirin [Adult Low Dose Aspirin EC] 81 tab PO DAILY 03/28/17 [History] Albuterol Inhaler [Ventolin Hfa Inhaler] 2 puff INHALATION RT-QID PRN 06/19/21 [History] Atorvastatin [Lipitor] 40 mg PO HS 06/19/21 [History] Fluticasone/Umeclidin/Vilanter [Trelegy Ellipta 200-62.5-25] 1 puff INHALATION RT-DAILY 06/19/21 [History] Nicotine 21Mg/24Hr Patch [Habitrol] 1 patch TRANSDERM DAILY 06/19/21 [History] Acetaminophen Tab [Tylenol] 650 mg PO Q6HR PRN tab 07/03/21 [Rx] Itraconazole [Sporanox] 200 mg PO TID 30 Days #120 capsule 07/31/21 [Rx] Pantoprazole [Protonix] 40 mg PO DAILY@1200 08/04/21 [History] Sodium Chloride 0.65% Nasal [Deep Sea (Saline)] 1 spray EA NOSTRIL Q4HR PRN 08/04/21 [History] carvediloL [Coreg] 6.25 mg PO BID-W/MEALS 30 Days #60 tab 08/18/21 [Rx] Follow up Appointment(s)/Referral(s): Lisa Webber MD [STAFF PHYSICIAN] - 4 Weeks [facility], [NON-STAFF] - ([facility] will call you to schedule appointments, you can call them with any changes.) Celso Garcia MD [Primary Care Provider] - 1-2 days Marisol Lundberg MD [STAFF PHYSICIAN] - 1 Week Adryan Hankins MD [STAFF PHYSICIAN] - 1 Week Activity/Diet/Wound Care/Special Instructions: DISCHARGE INSTRUCTIONS: 1. No driving for 2 weeks, or until physician gives their ok. 2. No lifting, pushing, or pulling more than 10 pounds for 2 weeks. The physician will advise of any restriction changes. 3. Continue pain control per as needed orders. Alternate acetaminophen (Tylenol) and ibuprofen (Motrin/Advil) for pain. 4. Continue with incentive spirometry and splinting until otherwise directed by the physician. 5. Leave chest tube dressing for 48 hours. After that, remove all dressings and shower daily. 6. Routine incision care. No powders, lotions, ointments on incisions. 7. Please call surgeon/INCENDIARY POWDER MIXER for temp greater than 101 F or purulent drainage from incisions. 8. Smoking cessation counseling and program information provided. Discharge Disposition: HOME WITH HOME HEALTH SERVICES
[2021-08-18 15:10] VITALS: BP 118/77; PULSE 87; TEMP 98
--- NOTE | 2021-08-20 08:15 | CDI ---
Documentation Clarification Form Date: 08/20/2021 07:50:00 AM From: Etta Membreno Admit Date: 08/04/2021 10:42:00 PM Patient Name: Yuan Li Visit Number: [id number] Discharge Date: 08/18/2021 03:57:00 PM ATTENTION: The Clinical Documentation Specialists (CDI) and [facility] Coding Staff appreciate your assistance in clarifying documentation. Please respond to the clarification below the line at the bottom and electronically sign. The CDI & [facility] Coding staff will review the response and follow-up if needed. Please note: Queries are made part of the Legal Health Record. If you have any questions, please contact the author of this message via ITS. Dr. Edgardo Villalobos The patient presented with acute respiratory failure (intubated) tension pneumothorax, pneumonia and histoplasmosis infection. Sepsis is documented as pneumonia/sepsis in ER notes, H and P, surgical consult, cardiac consult, PN 08/13, 08/14, 08/18 and sepsis diagnosis not carried to [facility] by attending. Please clarify if patient had sepsis or was it ruled out. History/Risk Factors: pneumonia, histoplasmosis, pneumothorax Clinical Indicators: WBC: 10.3 Lactic acid: 1.1 Vitals signs: 97.6 Fm 82 bpm, 22, 91/60, 100% on mechanical vent Treatment: PICC line for IV Sporanox 200 mg 3 times a day ID Consult: Histoplasmosis pneumonia Antibiotics: Antifungal Sporanox IV Bolus: In your professional opinion, please clarify if these findings signify one of the following conditions: [ ] Sepsis POA [ ] Sepsis, due to Histoplasmosis pneumonia [ ] Sepsis ruled out [ ] Severe Sepsis with organ failure [ ] Other, please specify [ ] Unable to determine SIRS Criteria: 2 or more of the following may indicate SIRS -Temperature < 96.8F (36C) or > 101.0F (38.3C) -Heart Rate > 90 bpm -Respiratory Rate > 20 breaths/min or PaCO2 < 32 mmHg -White Blood Cell Count > 12,000 or < 4,000 cells/mm3 or > 10% bands i was the admitting physician , at time of admission , he did not meet sepsis criteria. if you have further concerns , please discuss with day time caring provider who carried on this patient care while inpatient [facility]
== END 2021-08-18 15:57 | disposition home health service (06) | DRG 208 ==
LOC: EC 20:10 → SUPCPDRO 20:10 → 2SICU 22:42 → 3SCARD 08-14 17:08 → 4SSUR 08-16 16:39
PROVIDERS: ADMIT Internal Medicine; ATTEND Internal Medicine
PROC: 0BH17EZ Insertion of Endotracheal Airway into Trachea, Via Natural or Artificial Opening (ICD-10-PCS; principal; 2021-08-04)
PROC: 5A1945Z Respiratory Ventilation, 24-96 Consecutive Hours (ICD-10-PCS; principal; 2021-08-04)
PROC: 3E043XZ Introduction of Vasopressor into Central Vein, Percutaneous Approach (ICD-10-PCS; 2021-08-04)
PROC: 03HY32Z Insertion of Monitoring Device into Upper Artery, Percutaneous Approach (ICD-10-PCS; 2021-08-05)
PROC: 4A133B1 Monitoring of Arterial Pressure, Peripheral, Percutaneous Approach (ICD-10-PCS; 2021-08-05)
PROC: 0W9B30Z Drainage of Left Pleural Cavity with Drainage Device, Percutaneous Approach (ICD-10-PCS; 2021-08-05)
PROC: 4A133J1 Monitoring of Arterial Pulse, Peripheral, Percutaneous Approach (ICD-10-PCS; 2021-08-05)
PROC: 02HV33Z Insertion of Infusion Device into Superior Vena Cava, Percutaneous Approach (ICD-10-PCS; 2021-08-05)
PROC: 0DH67UZ Insertion of Feeding Device into Stomach, Via Natural or Artificial Opening (ICD-10-PCS; 2021-08-05)
PROC: 3E0G76Z Introduction of Nutritional Substance into Upper GI, Via Natural or Artificial Opening (ICD-10-PCS; 2021-08-05)
PROC: 5A0935A Assistance with Respiratory Ventilation, Less than 24 Consecutive Hours, High Flow/Velocity Cannula (ICD-10-PCS; 2021-08-06)
DX: J93.0 Spontaneous tension pneumothorax (principal); B39.2 Pulmonary histoplasmosis capsulati, unspecified; I21.A1 Myocardial infarction type 2; J96.01 Acute respiratory failure with hypoxia; F11.20 Opioid dependence, uncomplicated; I50.22 Chronic systolic (congestive) heart failure; K92.2 Gastrointestinal hemorrhage, unspecified; T79.7XXA Traumatic subcutaneous emphysema, initial encounter; T85.698A Other mechanical complication of other specified internal prosthetic devices, implants and grafts, initial encounter; J93.82 Other air leak; D64.9 Anemia, unspecified; E83.42 Hypomagnesemia; E87.6 Hypokalemia; Z71.6 Tobacco abuse counseling; F17.210 Nicotine dependence, cigarettes, uncomplicated; F41.1 Generalized anxiety disorder; J43.9 Emphysema, unspecified; I25.10 Atherosclerotic heart disease of native coronary artery without angina pectoris; L30.9 Dermatitis, unspecified; I95.9 Hypotension, unspecified; I25.2 Old myocardial infarction; Z99.81 Dependence on supplemental oxygen; K64.9 Unspecified hemorrhoids; I25.5 Ischemic cardiomyopathy; I48.0 Paroxysmal atrial fibrillation; Z86.010 Personal history of colon polyps; Z87.11 Personal history of peptic ulcer disease; Z79.82 Long term (current) use of aspirin; Z79.899 Other long term (current) drug therapy; Z82.49 Family history of ischemic heart disease and other diseases of the circulatory system; Z95.5 Presence of coronary angioplasty implant and graft; Z95.810 Presence of automatic (implantable) cardiac defibrillator; Z28.311 Partially vaccinated for COVID-19; Z88.8 Allergy status to other drugs, medicaments and biological substances; Z71.3 Dietary counseling and surveillance
CPT/HCPCS: 36415; 36573; 36600; 71045; 71046; 80048; 80053; 80299; 81003; 82272; 82550; 82805; 83540; 83550; 83605; 83735; 84145; 84484; 85025; 85027; 85610; 85730; 86850; 86900; 86901; 86920; 87070; 87205; 87385; 93005; 93308; 94002; 94003; 94640; 94760; 96361; 96365; 96367; 96375; 99291

== ENCOUNTER → 2021-09-03 | Outpatient (CLI) | payer MEDICARE, OTHER ==
[2021-09-03 23:03] LABS: % Iron Saturation 8.16 (15.00-50.00)
[2021-09-03 23:05] LABS: Basophils # (A) 0.08 X 10*3/uL (0.00-0.10); Basophils % (A) 0.9 %; Eosinophils # (A) 0.63 X 10*3/uL (0.04-0.35); Eosinophils % (A) 6.7 %; HCT 36.3 % (39.6-50.0); HGB 10.3 g/dL (13.0-17.0); Immature Grans, Automated 0.6 %; Lymphocytes # (A) 1.56 X 10*3/uL (0.90-5.00); Lymphocytes % (A) 16.7 %; MCH 24.9 pg (27.0-32.0); MCHC 28.4 g/dL (32.0-37.0); MCV 87.7 fL (80.0-97.0); Mean Platelet Volume 11.9 fL (9.5-12.2); Monocytes # (A) 0.97 X 10*3/uL (0.20-1.00); Monocytes % (A) 10.4 %; NRBC Per 100 WBC 0 /100 WBCS (0.0-0.0); Neutrophils # (A) 6.06 X 10*3/uL (1.80-7.70); Neutrophils % (A) 64.7 %; Platelet Count 381 X 10*3/uL (140-440); RBC 4.14 X 10*6/uL (4.40-5.60); RDW 16.5 % (11.5-14.5); WBC 9.36 X 10*3/uL (4.50-10.00)
== END | disposition home or self-care (01) ==
LOC: LABWHC1 15:57
PROVIDERS: ATTEND Internal Medicine Gastroenterology
DX: D50.9 Iron deficiency anemia, unspecified (principal)
CPT/HCPCS: 36415; 82728; 83540; 83550; 85025

== ENCOUNTER → 2021-10-06 | Outpatient (CLI) | payer MEDICARE, OTHER | END | disposition home or self-care (01) | LOC: LABWHC1 15:42 | PROVIDERS: ATTEND Internal Medicine Infectious Disease | DX: B39.9 Histoplasmosis, unspecified (principal) | CPT/HCPCS: 36415 ==

== ENCOUNTER → 2021-11-30 | Outpatient (CLI) | payer MEDICARE, OTHER ==
[2021-11-30 17:47] LABS: Basophils # (A) 0.04 X 10*3/uL (0.00-0.10); Basophils % (A) 0.6 %; Eosinophils # (A) 0.15 X 10*3/uL (0.04-0.35); Eosinophils % (A) 2.2 %; HCT 44.5 % (39.6-50.0); HGB 13.8 g/dL (13.0-17.0); Immature Grans, Automated 1.3 %; Lymphocytes # (A) 0.98 X 10*3/uL (0.90-5.00); Lymphocytes % (A) 14.1 %; MCV 77.3 fL (80.0-97.0); Mean Platelet Volume 10.6 fL (9.5-12.2); Monocytes # (A) 0.72 X 10*3/uL (0.20-1.00); Monocytes % (A) 10.3 %; NRBC Per 100 WBC 0 /100 WBCS (0.0-0.0); Neutrophils # (A) 4.99 X 10*3/uL (1.80-7.70); Neutrophils % (A) 71.5 %; Platelet Count 295 X 10*3/uL (140-440); RBC 5.76 X 10*6/uL (4.40-5.60); RDW 20.1 % (11.5-14.5); WBC 6.97 X 10*3/uL (4.50-10.00)
[2021-11-30 18:17] LABS: African American GFR (CKD) 105.5 (60.0-200.0); Albumin 4.4 g/dL (3.8-4.9); Albumin/Globulin Ratio 1.25 (1.60-3.17); BUN/Creat Ratio 23.71 Ratio (12.00-20.00); C Reactive Protein 0.5 mg/dL (0.00-0.80); Calcium 9.8 mg/dL (8.7-10.3); Carbon Dioxide 26.1 mmol/L (20.0-27.5); Globulin 3.6 g/dL (1.6-3.3); Potassium 5.1 mmol/L (3.5-5.5); Total Bilirubin 0.4 mg/dL (0.30-1.20)
[2021-11-30 19:22] LABS: Erythrocyte Sedimentation Rate 28 mm/Hr (0-20)
== END | disposition home or self-care (01) ==
LOC: LABWHC1 13:17
PROVIDERS: ATTEND Internal Medicine Infectious Disease
DX: B39.2 Pulmonary histoplasmosis capsulati, unspecified (principal)
CPT/HCPCS: 36415; 80053; 83516; 85025; 85652; 86140

== ENCOUNTER → 2022-03-01 | Outpatient (CLI) | payer MEDICARE, OTHER ==
[2022-03-01 11:01] LABS: ALT 18 U/L (4-49); AST 26 U/L (17-59); African American GFR (CKD) >90 (>60 ml/min/1.73 sqM); Albumin 4.4 g/dL (3.5-5.0); Albumin/Globulin Ratio 1.4; Alkaline Phosphatase 116 U/L (38-126); Anion Gap 13 mmol/L; Blood Urea Nitrogen 15 mg/dL (9-20); Calcium 9.4 mg/dL (8.4-10.2); Carbon Dioxide 27 mmol/L (22-30); Chloride 95 mmol/L (98-107); Globulin 3.2 g/dL; Glucose 91 mg/dL (74-99); Non-African American GFR(CKD) >90 (>60 ml/min/1.73 sqM); Potassium 4.9 mmol/L (3.5-5.1); Sodium 135 mmol/L (137-145); Total Bilirubin 0.7 mg/dL (0.2-1.3); Total Protein 7.6 g/dL (6.3-8.2)
[2022-03-01 11:04] LABS: HCT 40.5 % (39.0-53.0); HGB 13.3 gm/dL (13.0-17.5); Hypochromasia Slight; MCH 27.2 pg (25.0-35.0); MCHC 32.8 g/dL (31.0-37.0); MCV 82.9 fL (80.0-100.0); Mean Platelet Volume 8.6; Platelet Count 367 k/uL (150-450); RBC 4.89 m/uL (4.30-5.90); RDW 15.3 % (11.5-15.5); WBC 11.4 k/uL (3.8-10.6)
[2022-03-01 11:17] LABS: C Reactive Protein 2.6 mg/dL (<1.0)
--- NOTE | 2022-03-01 12:58 | CT ---
EXAMINATION TYPE: CT chest w con DATE OF EXAM: 03/01/2022 COMPARISON: 07/02/2021 HISTORY: Pulmonary histoplasmosis capsulation CT DLP: 214.3 mGycm, Automated exposure control for dose reduction was used. CONTRAST: Performed injected with 70 mL of Isovue 300. TECHNIQUE: Axial images were obtained at 5 mm thick sections. Reconstructed images are reviewed on freee computer in the coronal plane. FINDINGS: Portion of the thyroid visualized is normal. Emphysematous changes are present better visualized lower lung field. There is some pulmonary fibrosis and large blebs or bulla in the posterior right mid lung field. Ther e is dense consolidation at the right apex with cavitation may be increasing density over the interva l. The left upper lobe consolidation however appears somewhat improved. However, underlying masslike area remain present No enlarged mediastinal or hilar adenopathy is evident. Previous enlarged mediastinal adenopathy is not identified on the current exam. Largest lymph node is in the right paratracheal region measuring 0.8 cm. Obvious enlarged hilar adenopathy is not identified. The ascending aorta diameter at the lev el of the main pulmonary artery is 3.0 cm. The main pulmonary artery diameter at the bifurcation is 2.[address] sections are obtained through the upper abdomen. Abdomen is essentially unremarkable. IMPRESSIONS: 1. Improving left upper lobe consolidation with underlying residual mass remaining present. 2. Worsening right upper lobe consolidation.
== END | disposition home or self-care (01) ==
LOC: RADCTMAIN 08:30
PROVIDERS: ATTEND Internal Medicine Infectious Disease
DX: R91.8 Other nonspecific abnormal finding of lung field (principal); B39.2 Pulmonary histoplasmosis capsulati, unspecified
CPT/HCPCS: 80053; 85027; 86140; 71260; 36415; Q9967

== ENCOUNTER → 2022-08-23 | Outpatient (CLI) | payer MEDICARE, OTHER ==
[2022-08-24 02:12] LABS: Basophils # (A) 0.06 X 10*3/uL (0.00-0.10); Basophils % (A) 0.6 %; Eosinophils # (A) 0.28 X 10*3/uL (0.04-0.35); Eosinophils % (A) 2.7 %; HCT 39.2 % (39.6-50.0); HGB 11.8 g/dL (13.0-17.0); Immature Grans, Automated 0.5 %; Lymphocytes # (A) 1.28 X 10*3/uL (0.90-5.00); Lymphocytes % (A) 12.2 %; MCH 26.1 pg (27.0-32.0); MCHC 30.1 g/dL (32.0-37.0); MCV 86.7 fL (80.0-97.0); Mean Platelet Volume 10.5 fL (9.5-12.2); Monocytes # (A) 0.72 X 10*3/uL (0.20-1.00); Monocytes % (A) 6.9 %; NRBC Per 100 WBC 0 /100 WBCS (0.0-0.0); Neutrophils # (A) 8.07 X 10*3/uL (1.80-7.70); Neutrophils % (A) 77.1 %; Platelet Count 359 X 10*3/uL (140-440); RBC 4.52 X 10*6/uL (4.40-5.60); RDW 15.3 % (11.5-14.5); WBC 10.46 X 10*3/uL (4.50-10.00)
[2022-08-24 03:59] LABS: African American GFR (CKD) 113.4 (60.0-200.0); Albumin 4.4 g/dL (3.8-4.9); Albumin/Globulin Ratio 1.63 (1.60-3.17); BUN/Creat Ratio 12.68 Ratio (12.00-20.00); Blood Urea Nitrogen 10.3 mg/dL (9.0-27.0); C Reactive Protein 8.9 mg/dL (0.00-0.80); Calcium 9.6 mg/dL (8.7-10.3); Carbon Dioxide 26.7 mmol/L (20.0-27.5); Globulin 2.7 g/dL (1.6-3.3); Non-African American GFR(CKD) 97.9 (60.0-200.0); Potassium 4.8 mmol/L (3.5-5.5); Total Bilirubin 0.3 mg/dL (0.30-1.20); Total Protein 7.2 g/dL (6.2-8.2)
== END | disposition home or self-care (01) ==
LOC: LABWHC1 14:42
PROVIDERS: ATTEND Nurse Practitioner Acute Care
DX: I50.22 Chronic systolic (congestive) heart failure (principal); B39.2 Pulmonary histoplasmosis capsulati, unspecified
CPT/HCPCS: 36415; 80053; 84145; 85025; 86140

== ENCOUNTER → 2022-08-25 | Outpatient (CLI) | payer MEDICARE, OTHER | END | disposition home or self-care (01) | LOC: LABWHC1 13:50 | PROVIDERS: ATTEND Internal Medicine Infectious Disease | DX: I50.22 Chronic systolic (congestive) heart failure (principal) | CPT/HCPCS: 36415 ==

== ENCOUNTER → 2023-01-12 | Outpatient (CLI) | payer MEDICARE, OTHER ==
--- NOTE | 2023-01-13 09:23 | CT ---
EXAMINATION TYPE: CT chest w con CT DLP: 239.1 mGycm, Automated exposure control for dose reduction was used. DATE OF EXAM: 01/12/2023 5:37 PM COMPARISON: 06/09/2022 CT CLINICAL INDICATION:Male, 57 years old with history of J18.9 Pneumonia, pneumonia TECHNIQUE: Multiple axial images were obtained through the chest. Sagittal and coronal reformats were created for review. Contrast used:100 cc mL of Isovue 300 with IV Contrast (None if empty) Oral contrast used: (None if empty) FINDINGS: LUNGS/ PLEURA: Emphysema changes with superimposed bronchiectasis and consolidation in the upper lung s overall the morphology is not significantly changed from 06/09/2022. No new or enlarging pulmonary no dules identified. Scattered streaky atelectasis and scarring also present. No pneumothorax or pleural fusion. AIRWAY: Patent and unremarkable. HEART: Size within normal limits. Moderate to severe coronary artery cusp patient's. Cardiac conducti on device with leads terminating in the right ventricle. MEDIASTINUM: No gross evidence of adenopathy. VASCULATURE: No aortic aneurysm. MUSCULOSKELETAL: Mild disc degeneration changes are present throughout the thoracolumbar spine. SOFT TISSUES/LYMPH NODES: Unremarkable. LOWER NECK: No significant findings. UPPER ABDOMEN: Gastric diverticulum near the left adrenal gland. IMPRESSION: Emphysema changes with superimposed bronchiectasis and consolidation in the upper lungs overall the m orphology is not significantly changed from 06/09/2022. Findings favor atelectasis with superimposed in fection not entirely excluded but felt to be less likely given stability.
== END | disposition home or self-care (01) ==
LOC: RADCTMAIN 16:56
PROVIDERS: ATTEND Internal Medicine Critical Care Medicine
DX: J18.9 Pneumonia, unspecified organism (principal); J47.9 Bronchiectasis, uncomplicated; J43.8 Other emphysema
CPT/HCPCS: 71260; Q9967

== ENCOUNTER → 2024-07-09 | Outpatient (CLI) | payer MEDICARE, OTHER ==
[~2024-07-09] MED LIST: REGADENOSON 0.4 MG/5 ML SYRINGE IV PRN
--- NOTE | 2024-07-09 12:13 | CA ---
Lexiscan Nuclear Stress Test Report Name: Yuan Li Exam Date: 07/09/2024 10:17 Exam Location: [place] Stress Ht (in): 67 Wt (lb): 130 BSA: 1.68 Ordering Phys: Tr Owens DO Referring Phys: Anna Irvin [facility] Technologist: JUAN RASHID Age: 59 Gender: M : 1965 Procedure CPT: Indications: I50.22 CHRONIC SYSTOLIC (CONGESTIVE) HEART FAILURE ICD-10 Codes: Patient History: Medications: SEE LIST,,, Meds past 24 hrs: Pretest Chest Pain: STRESS TEST Lexiscan Protocol Exercise Duration (min:sec): 02:[address] Depressions (mm): Angina Score: Millan Score: Resting HR (bpm): 75 Peak HR (bpm): 97 Resting BP (mmHg): 131 / 86 Peak BP (mmHg): 119 / 73 MPHR: 160 Target HR: 136 % MPHR: 61 METS: 1.0 Total Dose: Peak Dose: Atropine: Double Product: 50090 BP Response: Stress Termination: INFUSION COMPLETE Stress Symptoms: NO SYMPTOMS Stress Summary: ECG ANALYSIS Resting ECG: Stress ECG: CONCLUSIONS At baseline EKG showed normal sinus rhythm, normal axis, Q waves V1 and V2 consistent with prior marker infarction with T-wave inversions V4 through V6 and minimal ST depressions in the inferior leads. Patient recieved IV infusion of Lexiscan 0.4mg and at peak infusion EKG showed no significant changes from baseline. Conclusions: 1. Nonspecific stress EKG portion second baseline EKG abnormalities 2. Nuclear imaging to be reported separately. Dr. Tr Owens DO (Electronically Signed) Final Date: 09 July 2024 12:12
--- NOTE | 2024-07-09 15:23 | NM ---
EXAMINATION TYPE: NM stress lexiscan cardiolite DATE OF EXAM: 07/09/2024 COMPARISON: Chest CT January 12, 2023 CLINICAL INDICATION: Male, 59 years old with history of I50.22 CHRONIC SYSTOLIC (CONGESTIVE) HEART FA ILURE; history of hypertension and hypercholesterolemia along with tobacco use. History of 3 heart at tacks and angioplasty x5 TECHNIQUE: After the intravenous administration of 10.2 mCi Tc 99m Sestamibi - Cardiolite resting SP ECT images acquired 45 minutes post injection. The patient received 0.4mg Lexiscan, 23.9 mCi Tc 99m Sestamibi - Stress images obtained [address] injection FINDINGS: Review of stress and rest SPECT images demonstrates poor uptake involving the septal wall and into th e apex on stress and rest images suggesting old infarct. Diminished color intensity involving the ant erior septal wall in the base extending into the mid segment is noted on stress versus rest images. C annot exclude acute ischemia. Abnormal elevated end-diastolic volume of 94 cc. Abnormal estimated eje ction fraction of 30%. IMPRESSION: Evidence of old infarct/dilated cardiomyopathy. Cannot exclude acute margoth infarct ischemi a. Consider further investigation with direct catheter angiogram. [facility], , 07/09/2024 3:21 PM
== END | disposition home or self-care (01) ==
LOC: RADNMMAIN 09:02
PROVIDERS: ATTEND Internal Medicine
DX: R94.31 Abnormal electrocardiogram [ECG] [EKG] (principal); I50.22 Chronic systolic (congestive) heart failure; I42.0 Dilated cardiomyopathy
CPT/HCPCS: 93017; 78452; A9500; J2785

== ENCOUNTER 2024-08-08 21:29 | Inpatient (IN) | payer MEDICARE ==
[2024-08-08] MEDS ORDERED: RX INFO: IV CONTRAST WAS GIVEN 1 EACH MISC MISCELLANE PRN (22:10)
[2024-08-08] MEDS: IPRATROPIUM-ALBUTEROL 3 ML NEB INHALATION STA (22:20)
[2024-08-08] MEDS: methylPREDNISolone SOD SUCCI 125 MG/2 ML VIAL IV STA (22:26)
[2024-08-08] MEDS: MAGNESIUM SULFATE-D5W PMX 1 GM in DEXTROSE/WATER 1 100ML.BAG IVPB STA (22:28)
[2024-08-08 22:31] LABS: Basophils # (A) 0.04 10*3/uL (0.00-0.10); Basophils % (A) 0.3 %; Eosinophils # (A) 0.15 10*3/uL (0.04-0.35); Eosinophils % (A) 1.2 %; HCT 52.2 % (39.6-50.0); HGB 17.5 g/dL (13.0-17.0); Lymphocytes % (A) 11.4 %; MCH 30.2 pg (27.0-32.0); MCHC 33.5 g/dL (32.0-37.0); MCV 90.2 fL (80.0-97.0); Mean Platelet Volume 9.8 fL (9.5-12.2); Monocytes # (A) 0.76 10*3/uL (0.20-1.00); Monocytes % (A) 6.2 %; Neutrophils # (A) 9.74 10*3/uL (1.80-7.70); Neutrophils % (A) 79.4 %; Platelet Count 243 10*3/uL (140-440); RBC 5.79 10*6/uL (4.40-5.60); WBC 12.28 10*3/uL (4.50-10.00)
[2024-08-08 22:40] LABS: INR 0.9 (<1.2); Partial Thromboplastin Time 24.4 sec (22.0-30.0); Prothrombin Time 10.1 sec (10.0-12.5)
[2024-08-08 22:44] LABS: ALT 42 U/L (4-49); AST 30 U/L (17-59); African American GFR (CKD) >90 (>60 ml/min/1.73 sqM); Albumin 4.6 g/dL (3.5-5.0); Alkaline Phosphatase 74 U/L (38-126); Anion Gap 9 mmol/L; Blood Urea Nitrogen 15 mg/dL (9-20); Calcium 9.9 mg/dL (8.4-10.2); Carbon Dioxide 28 mmol/L (22-30); Chloride 98 mmol/L (98-107); Glucose 106 mg/dL (74-99); Non-African American GFR(CKD) >90 (>60 ml/min/1.73 sqM); Potassium 4.3 mmol/L (3.5-5.1); Sodium 135 mmol/L (137-145); Total Bilirubin 0.6 mg/dL (0.2-1.3); Total Protein 7.2 g/dL (6.3-8.2)
[2024-08-08 22:53] LABS: NT-Pro-B-Type Natriuretic Pept 878 pg/mL
--- NOTE | 2024-08-08 22:55 | XR ---
EXAMINATION TYPE: XR chest 1V portable DATE OF EXAM: 08/08/2024 10:38 PM COMPARISON: Chest radiographs from 08/17/2021 CLINICAL INDICATION: Male, 59 years old with history of sob; [facility] TECHNIQUE: XR chest 1V portable Frontal view of the chest. FINDINGS: Lungs/Pleura: Consolidation changes in the apices bilaterally which is decreased from prior exam in 2 022.. There is no evidence of pleural effusion, focal consolidation, or pneumothorax. Pulmonary vascularity: Unremarkable. Heart/mediastinum: Cardiomediastinal silhouette is unremarkable. Single-lead cardiac conduction devic e overlying the left hemithorax with lead projecting over the right ventricle. Musculoskeletal: No acute osseous pathology. Other findings: Non IMPRESSION: 1. Scarring changes in the upper lungs bilaterally. This is improved from 2021. 2. No acute cardiopulmonary disease/process. [facility], , 08/08/2024 10:52 PM
[2024-08-08 23:17] LABS: Influenza A Not Detected (Not Detectd); Influenza B Not Detected (Not Detectd); RSV Not Detected (Not Detectd)
[2024-08-09] MEDS ORDERED: NALOXONE 0.4 MG/ML 1 ML VIAL IV PRN (00:45)
--- NOTE | 2024-08-09 00:45 | ED ---
SOB HPI - General Chief Complaint: Shortness of Breath Stated Complaint: shortness of breath Time Seen by Provider: 08/08/24 21:35 Source: patient Mode of arrival: ambulatory Limitations: no limitations - History of Present Illness Initial Comments: 59-year-old male presents to the emergency department reporting shortness of breath. Patient does have a history of COPD and CHF. He typically wears 1 L of oxygen at night to sleep. Reports that he has been turning it up to 2 L. He is supposed to wear oxygen during the day as needed and states he has been wearing it consistently. He continues to smoke half pack a day. He saw Dr. Guerrero in an office and had a chest x-ray was performed. He was told that his lungs were looking better. He does take steroids daily. He also has a history of CHF. Denies any lower extremity swelling. No chest pain. He does take Lasix daily without any missed doses. He follows with Dr. Owens. He denies fevers. Does admit to a cough. No sick contacts. He last had a breathing treatment around 7 PM. No other alleviating, precipitating roughing factors - Related Data Home Medications Medication Instructions Recorded Confirmed Buprenorphine HCl/Naloxone HCl 0.5 film SL TID PRN 03/13/15 08/04/21 [Suboxone 8 mg-2 mg Sl Film] Aspirin [Adult Low Dose Aspirin EC] 81 tab PO DAILY 03/28/17 08/04/21 Albuterol Inhaler [Ventolin Hfa 2 puff INHALATION RT-QID PRN 06/19/21 08/04/21 Inhaler] Atorvastatin [Lipitor] 40 mg PO HS 06/19/21 08/04/21 Fluticasone/Umeclidin/Vilanter 1 puff INHALATION RT-DAILY 06/19/21 08/04/21 [Trelegy Ellipta 200-62.5-25] Nicotine 21Mg/24Hr Patch [Habitrol] 1 patch TRANSDERM DAILY 06/19/21 08/04/21 Pantoprazole [Protonix] 40 mg PO DAILY@1200 08/04/21 08/04/21 Sodium Chloride 0.65% Nasal [Deep 1 spray EA NOSTRIL Q4HR PRN 08/04/21 08/04/21 Sea (Saline)] Previous Rx's Medication Instructions Recorded Acetaminophen Tab [Tylenol] 650 mg PO Q6HR PRN tab 03/04/22 Itraconazole [Sporanox] 200 mg PO TID 30 Days #120 capsule 07/31/21 carvediloL [Coreg] 6.25 mg PO BID-W/MEALS 30 Days #60 08/18/21 tab Allergies Allergy/AdvReac Type Severity Reaction Status Date / Time clopidogrel bisulfate Allergy Anaphylaxis Verified 08/08/24 21:35 [From Plavix] Review of Systems ROS Statement: Those systems with pertinent positive or pertinent negative responses have been documented in the HPI. ROS Other: All systems not noted in ROS Statement are negative. Past Medical History Past Medical History: Atrial Fibrillation, Coronary Artery Disease (CAD), Chest Pain / Angina, Heart Failure, COPD, Myocardial Infarction (NE) Additional Past Medical History / Comment(s): Pt recently sent from [facility] ER to [facility] for lower GI bleed/he states he had endoscopies and was told he had an ulcer/polyps and hemorrhoids, pt also recently admitted to [facility] and treated for double pneumonia/sepsis/histoplasmosis infection and was sent home with home oxygen. Other hx: Severe COPD, past norco addiction and is on suboxone past 4 year and it is being weaned down, MIs x3. Last Myocardial Infarction Date:: 2008 History of Any Multi-Drug Resistant Organisms: None Reported Past Surgical History: AICD, Heart Catheterization, Heart Catheterization With Stent, Hernia Repair, Orthopedic Surgery, Pacemaker Additional Past Surgical History / Comment(s): PCI with stents, AICD/pacer, EGD/colonoscopy, bronchoscopies x2, bilateral inguinal hernia repairs, bilateral carpal tunnel releases. Past Anesthesia/Blood Transfusion Reactions: No Reported Reaction Date of Last Stent Placement:: 2010 Type of Cardiac Device: Permanent Pacemaker, AICD Device Placement Date:: 2008 Past Psychological History: No Psychological Hx Reported Smoking Status: Former smoker Past Alcohol Use History: None Reported Past Drug Use History: None Reported - Past Family History Father Family Medical History: No Reported History Additional Family Medical History / Comment(s): Father pt believes d/t his spouses passing. Mother Family Medical History: Myocardial Infarction (NE) Additional Family Medical History / Comment(s): Mother of a massive NE at the age of 53yrs. General Exam Limitations: no limitations Course Vital Signs 08/08/24 08/08/24 08/08/24 21:32 22:20 22:30 Temperature 97.8 F Pulse Rate 116 H 112 H 114 H Respiratory 22 24 22 Rate Blood Pressure 156/104 O2 Sat by Pulse 96 Oximetry 08/08/24 08/08/24 23:09 23:14 Temperature Pulse Rate 112 H Respiratory 22 Rate Blood Pressure 148/109 O2 Sat by Pulse 97 Oximetry Medical Decision Making - Medical Decision Making Was pt. sent in by a medical professional or institution (, [facility], [employer] [employer], urgent care, hospital, or [facility]...) When possible be specific @ -[No] Did you speak to anyone other than the patient for history (EMS, parent, family, police, friend...)? What history was obtained from this source @ -[No] Did you review nursing and triage notes (agree or disagree)? Why? @ -[I reviewed and agree with nursing and triage notes] Were old charts reviewed (outside hosp., previous admission, EMS record, old EKG, old radiological studies, urgent care reports/EKG's, [facility] records)? Report findings @ -[No old charts were reviewed] Differential Diagnosis (chest pain, altered mental status, abdominal pain women, abdominal pain men, vaginal bleeding, weakness, fever, dyspnea, syncope, headac he, dizziness, GI bleed, back pain, seizure, CVA, palpatations, mental health, musculoskeletal)? @ -[not applicable] EKG interpreted by me (3pts min.). @ -Yes and demonstrates sinus tachycardia with a rate of 114. AL interval 113. QRS 104. QTc of 379. Right bundle branch block. No acute ST segment elevation X-rays interpreted by me (1pt min.). @ -[None done] CT interpreted by me (1pt min.). @ -[None done] U/S interpreted by me (1pt. min.). @ -[None done] What testing was considered but not performed or refused? (CT, X-rays, U/S, labs)? Why? @ -[None] What meds were considered but not given or refused? Why? @ -[None] Did you discuss the management of the patient with other professionals (professionals i.e. [facility]ATT Martinez, [employer], lab, RT, psych nurse, certified social workers in health care, welding inspector, teacher, defence force senior officer, egg caser)? Give summary @ -[No] Was smoking cessation discussed for >3mins.? @ -[No] Was critical care preformed (if so, how long)? @ -[No] Were there social determinants of health that impacted care today? How? (Homelessness, low income, unemployed, alcoholism, drug addiction, tra nsportation, low edu. Level, literacy, decrease access to med. care, longterm, rehab)? @ -[No] Was there de-escalation of care discussed even if they declined (Discuss DNR or withdrawal of care, Hospice)? DNR status @ -[No] What co-morbidities impacted this encounter? (DM, HTN, Smoking, COPD, CAD, Can cer, CVA, ARF, Chemo, Hep., AIDS, mental health diagnosis, sleep apnea, morbid obesity)? @ -[None] Was patient admitted / discharged? Hospital course, mention meds given and route, prescriptions, significant lab abnormalities, going to OR and other pertinent info. @ -[hospital course] Undiagnosed new problem with uncertain prognosis? @ -[No] Drug Therapy requiring intensive monitoring for toxicity (Heparin, Nitro, Insulin, Cardizem)? @ -[No] Were any procedures done? @ -[No] Diagnosis/symptom? @ -[default] Acute, or Chronic, or Acute on Chronic? @ -[default] Uncomplicated (without systemic symptoms) or Complicated (systemic symptoms)? @ -[default] Side effects of treatment? @ -[No] Exacerbation, Progression, or Severe Exacerbation? @ -[No] Poses a threat to life or bodily function? How? (Chest pain, USA, NE, pneumonia, PE, COPD, DKA, ARF, appy, cholecystitis, CVA, Diverticulitis, Homicidal, Suicidal, threat to staff... and all critical care pts) @ -[No] - Lab Data Result diagrams: 08/08/24 22:20 08/08/24 22:20 Lab Results 08/08/24 08/08/24 08/08/24 Range/Units 22:20 22:20 22:20 WBC 12.28 H (4.50-10.00) 10*3/uL RBC 5.79 H (4.40-5.60) 10*6/uL Hgb 17.5 H (13.0-17.0) g/dL Hct 52.2 H (39.6-50.0) % MCV 90.2 (80.0-97.0) fL MCH 30.2 (27.0-32.0) pg MCHC 33.5 (32.0-37.0) g/dL Plt Count 243 (140-440) 10*3/uL MPV 9.8 (9.5-12.2) fL Immature Gran % (Auto) 1.5 % Neutrophils % 79.4 % Lymphocytes % 11.4 % Monocytes % 6.2 % Eosinophils % 1.2 % Basophils % 0.3 % Immature Gran # 0.19 H (0.00-0.04) 10*3/uL Neutrophils # 9.74 H (1.80-7.70) 10*3/uL Lymphocytes # 1.40 (0.90-5.00) 10*3/uL Monocytes # 0.76 (0.20-1.00) 10*3/uL Eosinophils # 0.15 (0.04-0.35) 10*3/uL Basophils # 0.04 (0.00-0.10) 10*3/uL PT 10.1 (10.0-12.5) sec INR 0.9 (<1.2) APTT 24.4 (22.0-30.0) sec Sodium 135 L (137-145) mmol/L Potassium 4.3 (3.5-5.1) mmol/L Chloride 98 (98-107) mmol/L Carbon Dioxide 28 (22-30) mmol/L Anion Gap 9 mmol/L BUN 15 (9-20) mg/dL Creatinine 0.58 L (0.66-1.25) mg/dL Est GFR (CKD-EPI)AfAm >90 (>60 ml/min/1.73 sqM) Est GFR (CKD-EPI)NonAf >90 (>60 ml/min/1.73 sqM) Glucose 106 H (74-99) mg/dL Plasma Lactic Acid Yevgeniy (0.7-2.0) mmol/L Calcium 9.9 (8.4-10.2) mg/dL Total Bilirubin 0.6 (0.2-1.3) mg/dL AST 30 (17-59) U/L ALT 42 (4-49) U/L Alkaline Phosphatase 74 (38-126) U/L Troponin I (0.000-0.034) ng/mL NT-Pro-B Natriuret Pep 878 pg/mL Total Protein 7.2 (6.3-8.2) g/dL Albumin 4.6 (3.5-5.0) g/dL Influenza Type A (PCR) (Not Detectd) Influenza Type B (PCR) (Not Detectd) RSV (PCR) (Not Detectd) SARS-CoV-2 (PCR) (Not Detectd) 08/08/24 08/08/24 08/08/24 Range/Units 22:20 22:20 22:33 WBC (4.50-10.00) 10*3/uL RBC (4.40-5.60) 10*6/uL Hgb (13.0-17.0) g/dL Hct (39.6-50.0) % MCV (80.0-97.0) fL MCH (27.0-32.0) pg MCHC (32.0-37.0) g/dL Plt Count (140-440) 10*3/uL MPV (9.5-12.2) fL Immature Gran % (Auto) % Neutrophils % % Lymphocytes % % Monocytes % % Eosinophils % % Basophils % % Immature Gran # (0.00-0.04) 10*3/uL Neutrophils # (1.80-7.70) 10*3/uL Lymphocytes # (0.90-5.00) 10*3/uL Monocytes # (0.20-1.00) 10*3/uL Eosinophils # (0.04-0.35) 10*3/uL Basophils # (0.00-0.10) 10*3/uL PT (10.0-12.5) sec INR (<1.2) APTT (22.0-30.0) sec Sodium (137-145) mmol/L Potassium (3.5-5.1) mmol/L Chloride (98-107) mmol/L Carbon Dioxide (22-30) mmol/L Anion Gap mmol/L BUN (9-20) mg/dL Creatinine (0.66-1.25) mg/dL Est GFR (CKD-EPI)AfAm (>60 ml/min/1.73 sqM) Est GFR (CKD-EPI)NonAf (>60 ml/min/1.73 sqM) Glucose (74-99) mg/dL Plasma Lactic Acid Yevgeniy 1.1 (0.7-2.0) mmol/L Calcium (8.4-10.2) mg/dL Total Bilirubin (0.2-1.3) mg/dL AST (17-59) U/L ALT (4-49) U/L Alkaline Phosphatase (38-126) U/L Troponin I 0.042 H* (0.000-0.034) ng/mL NT-Pro-B Natriuret Pep pg/mL Total Protein (6.3-8.2) g/dL Albumin (3.5-5.0) g/dL Influenza Type A (PCR) Not Detected (Not Detectd) Influenza Type B (PCR) Not Detected (Not Detectd) RSV (PCR) Not Detected (Not Detectd) SARS-CoV-2 (PCR) Not Detected (Not Detectd) Disposition Clinical Impression: Acute respiratory distress, Acute exacerbation of COPD with asthma Disposition: ADMITTED IP TO THIS [facility] Condition: Stable Is patient prescribed a controlled substance at d/c from ED?: No Referrals: Marisol Lundberg MD [Primary Care Provider] - 1-2 days Time of Disposition: 00:44 Decision to Admit Reason: Admit from EC Decision Date: 08/09/24 Decision Time: 00:45
[2024-08-09] MEDS: IPRATROPIUM-ALBUTEROL 3 ML NEB INHALATION SCH (03:44)
[2024-08-09] MEDS ORDERED: guaiFENesin-DM 100-10MG/5ML 10 ML CUP PO PRN (05:39)
[2024-08-09] MEDS: methylPREDNISolone SOD SUCCI 40 MG/ML 1 ML VIAL IV SCH (05:46)
--- NOTE | 2024-08-09 05:46 | P.CNPUL ---
History of Present Illness Consult date: 08/09/24 Requesting physician: Annabel Hutton Reason for consult: COPD Chief complaint: Acute on chronic shortness of breath History of present illness: Patient is a 59-year-old male with past medical history significant for COPD, current ongoing tobacco dependence, oxygen dependence, histoplasmosis lung infection, previous left-sided pneumothorax, coronary artery disease with previous PCI/stents, hypertension, paroxysmal A-fib, ischemic cardiomyopathy with a AICD. Patient does follow in the pulmonary office with Dr. Lundberg for management of his COPD/emphysema. Currently on a Trelegy inhaler. Started smoking again approximately 6 months ago, continues to smoke approximately 1/2 to 1 pack/day. He chronically wears 1 L home O2, mostly at night, which he has been wearing [id number] more recently. Reportedly, did see Dr. Lundberg in the office on 07/27/2024. Was given a steroid shot and oral steroid burst taper. He has previously received multiple courses of antibiotics outpatient. Presented the emergency department late last night with a chief complaint acute on chronic shortness of breath. States that he had a upper respiratory infection in April 2024, his respiratory status never returned to baseline. He has been treated in outpatient basis with multiple courses of steroids and antibiotics. Also, states his blood pressure was reading high at home. Workup in the emergency department including a chest x-ray which does not show any acute cardiopulmonary process. There is chronic apical scarring bilaterally. Viral screen negative for influenza A/B, RSV, COVID. CBC with a WBC count of 12.3, hemoglobin 17.5, platelets 243. BMP: Sodium 135, potassium 4.3, chloride 98, serum bicarb 28, BUN 15, creatinine 0.58, glucose 106. Lactic 1.1. LFTs not elevated. Troponin 0.042. NT proBNP only 878. EKG: Sinus tachycardia, rate 114 bpm, minimal ST depression in leads II, 3, aVF. No acute ST segment elevations. Recent outpatient stress test noted. Patient currently being evaluated emergency department. He is resting comfortably on 5 L/min nasal cannula. SpO2 reading 98% on bedside monitor. Audibly wheezing. He smells like tobacco smoke. Endorses increased work of breathing, chest tightness, wheezing and dry cough. Extreme dyspnea with minimal ambulation. Denies fevers. Denies any recent sick contacts. Denies any sputum production, hemoptysis, chest pain. Denies any heart palpitations, lightheadedness/syncopal events, orthopnea, increased lower extremity edema. Current vital signs: Temperature 97.8 F, heart rate 96 beats per minute, blood pressure 126/99 mmHg, nontachypneic, SPO2 recorded at 98% on 5 L/min nasal cannula. Review of Systems Constitutional: Reports fatigue, Denies chills, Denies fever, Denies poor appetite, Denies weakness, Denies weight gain, Denies weight loss Ears, nose, mouth and throat: Denies headache, Denies nasal congestion, Denies nasal discharge, Denies post-nasal drip, Denies sinus pain, Denies sinus pressure, Denies sore throat Cardiovascular: Reports dyspnea on exertion, Denies chest pain, Denies leg edema, Denies lightheadedness, Denies orthopnea, Denies palpitations, Denies paroxysmal nocturnal dyspnea, Denies syncope Respiratory: Reports as per HPI Gastrointestinal: Denies abdominal pain, Denies constipation, Denies diarrhea, Denies hematochezia, Denies melena, Denies nausea, Denies vomiting Genitourinary: Denies dysuria Musculoskeletal: Denies limitation of motion Integumentary: Denies rash Neurological: Denies seizures, Denies syncope Psychiatric: Denies anxiety, Denies depression Past Medical History Past Medical History: Atrial Fibrillation, Coronary Artery Disease (CAD), Chest Pain / Angina, Heart Failure, COPD, Myocardial Infarction (SC) Additional Past Medical History / Comment(s): Pt recently sent from [facility] ER to [facility] for lower GI bleed/he states he had endoscopies and was told he had an ulcer/polyps and hemorrhoids, pt also recently admitted to [facility] and treated for double pneumonia/sepsis/histoplasmosis infection and was sent home with home oxygen. Other hx: Severe COPD, past norco addiction and is on suboxone past 4 year and it is being weaned down, MIs x3. Last Myocardial Infarction Date:: 2008 History of Any Multi-Drug Resistant Organisms: None Reported Past Surgical History: AICD, Heart Catheterization, Heart Catheterization With Stent, Hernia Repair, Orthopedic Surgery, Pacemaker Additional Past Surgical History / Comment(s): PCI with stents, AICD/pacer, EGD/colonoscopy, bronchoscopies x2, bilateral inguinal hernia repairs, bilateral carpal tunnel releases. Past Anesthesia/Blood Transfusion Reactions: No Reported Reaction Date of Last Stent Placement:: 2010 Type of Cardiac Device: Permanent Pacemaker, AICD Device Placement Date:: 2008 Past Psychological History: No Psychological Hx Reported Smoking Status: Former smoker Past Alcohol Use History: None Reported Past Drug Use History: None Reported - Past Family History Father Family Medical History: No Reported History Additional Family Medical History / Comment(s): Father pt believes d/t his spouses passing. Mother Family Medical History: Myocardial Infarction (SC) Additional Family Medical History / Comment(s): Mother of a massive SC at the age of 53yrs. Medications and Allergies Home Medications Medication Instructions Recorded Confirmed Type Buprenorphine HCl/Naloxone HCl 0.5 film SL TID PRN 03/13/15 08/04/21 History [Suboxone 8 mg-2 mg Sl Film] Aspirin [Adult Low Dose Aspirin EC] 81 tab PO DAILY 03/28/17 08/04/21 History Albuterol Inhaler [Ventolin Hfa 2 puff INHALATION RT-QID PRN 06/19/21 08/04/21 History Inhaler] Atorvastatin [Lipitor] 40 mg PO HS 06/19/21 08/04/21 History Fluticasone/Umeclidin/Vilanter 1 puff INHALATION RT-DAILY 06/19/21 08/04/21 History [Trelegy Ellipta 200-62.5-25] Nicotine 21Mg/24Hr Patch [Habitrol] 1 patch TRANSDERM DAILY 06/19/21 08/04/21 History Acetaminophen Tab [Tylenol] 650 mg PO Q6HR PRN tab 07/03/21 08/04/21 Rx Itraconazole [Sporanox] 200 mg PO TID 30 Days #120 capsule 07/31/21 08/04/21 Rx Pantoprazole [Protonix] 40 mg PO DAILY@1200 08/04/21 08/04/21 History Sodium Chloride 0.65% Nasal [Deep 1 spray EA NOSTRIL Q4HR PRN 08/04/21 08/04/21 History Sea (Saline)] carvediloL [Coreg] 6.25 mg PO BID-W/MEALS 30 Days #60 08/18/21 Rx tab Allergies Allergy/AdvReac Type Severity Reaction Status Date / Time clopidogrel bisulfate Allergy Anaphylaxis Verified 08/08/24 21:35 [From Plavix] Physical Exam Vitals: Vital Signs Temp Pulse Resp BP Pulse Ox 08/09/24 04:54 91 20 120/110 97 08/09/24 03:50 89 18 08/09/24 03:44 92 18 08/09/24 00:42 96 22 126/99 98 08/08/24 23:14 148/109 08/08/24 23:09 112 H 22 97 08/08/24 22:30 114 H 22 08/08/24 22:20 112 H 24 08/08/24 21:32 97.8 F 116 H 22 156/104 96 Intake and Output 08/08/24 08/08/24 08/09/24 14:59 22:59 06:59 Other: Weight 61.235 kg GENERAL EXAM: Alert, 59-year-old white male, on 5 L/min nasal cannula, fairly comfortable in no apparent distress. HEAD: Normocephalic and atraumatic EYES: Normal reaction of pupils, equal size. NOSE: Clear with pink turbinates. THROAT: No erythema or exudates. NECK: No masses, no JVD. CHEST: No chest wall deformity. Left chest implanted device/generator LUNGS: Equal air entry with diffuse expiratory wheezing heard bilaterally throughout. No conversational dyspnea or accessory muscle use while at rest CVS: S1 and S2 normal with no audible murmur, regular rhythm. No extra heart sounds ABDOMEN: No hepatosplenomegaly, active bowel sounds, no guarding or rigidity. SPINE: No scoliosis or deformity SKIN: No rashes CENTRAL NERVOUS SYSTEM: No focal deficits, tone is normal in all 4 extremities. EXTREMITIES: There is no peripheral edema, clubbing, or cyanosis. Peripheral pulses are intact. Results - Laboratory Findings CBC and BMP: 08/08/24 22:20 08/08/24 22:20 PT/INR, D-dimer PT 10.1 sec (10.0-12.5) 08/08/24 22:20 INR 0.9 (<1.2) 08/08/24 22:20 Abnormal lab findings: Abnormal Labs 08/08/24 08/08/24 08/08/24 22:20 22:20 22:20 WBC 12.28 H RBC 5.79 H Hgb 17.5 H Hct 52.2 H Immature Gran # 0.19 H Neutrophils # 9.74 H Sodium 135 L Creatinine 0.58 L Glucose 106 H Troponin I 0.042 H* - Diagnostic Findings Chest x-ray: image reviewed Assessment and Plan Assessment: Acute COPD exacerbation Acute on chronic hypoxemic respiratory failure, secondary to above Current ongoing tobacco dependence Elevated troponin, likely secondary to supply/demand mismatch Moderate to severe chronic obstructive pulmonary disease, with an FEV1 50% of predicted; normally maintained on a combination of Trelegy inhaler, albuterol nebs [id number], and albuterol rescue inhaler as needed. Chronic hypoxemic respiratory failure History of pulmonary histoplasmosis History of previous left-sided pneumothorax History of coronary artery disease History of paroxysmal atrial fibrillation History of ischemic cardiomyopathy with AICD/pacemaker, ejection fraction of 30 to 35% Hypertension History of hyperlipidemia Plan: Patient's medications, labs, chest x-ray reviewed No acute cardiopulmonary process noted, chronic bilateral apical scarring. Viral 4 Plex screen negative for influenza A/B, RSV, COVID Continue supplement supplemental oxygen maintain oxygen saturation of 90% or greater Smoking cessation counseling performed Nicotine patch offered Start patient on combination of DuoNebs [id number], Symbicort inhaler, and IV Solu-Medrol Start empiric antibiotics Resume home medications We will continue to follow I have personally seen and examined the patient, performed the documentation and the assessment and plan as written. Number of minutes spent on the visit:20 Time with Patient: Greater than 30
[2024-08-09] MEDS ORDERED: methylPREDNISolone SOD SUCCI 40 MG/ML 1 ML VIAL IV SCH (06:00)
[2024-08-09] MEDS: carvediloL 6.25 MG TAB PO SCH (06:41)
[2024-08-09] MEDS: PANTOPRAZOLE 40 MG TABLET PO SCH (06:42)
[2024-08-09] MEDS: SYMBICORT 160-4.5 MCG INHALER INHALATION SCH (07:55)
[2024-08-09] MEDS: NICOTINE 21MG/24HR PATCH TRANSDERM SCH (08:07)
[2024-08-09] MEDS: AZITHROMYCIN 500 MG TAB PO SCH (08:07)
[2024-08-09] MEDS: ASPIRIN 81 MG PO SCH (08:07)
[2024-08-09] MEDS: FUROSEMIDE 20 MG TAB PO SCH (08:07)
[2024-08-09] MEDS: SACUBITRIL/VALSARTAN 24 MG-26 MG TABLET PO SCH (08:07)
--- NOTE | 2024-08-09 10:09 | CT ---
EXAMINATION TYPE: CT chest w con DATE OF EXAM: 08/09/2024 9:41 AM COMPARISON: None. CLINICAL INDICATION: Male, 59 years old with history of sob, hx heart failure, hx pericardial effusio n, Pt presents to ED for c/o worsening SOB x3 days. Pt has hx CHF. Pt wears home o2 at 2L. Currently on 3L. TECHNIQUE: Axial images were obtained at 5 mm thick sections. Reconstructed images are reviewed on [employer] computer in the coronal plane. Contrast used:100 ml mL of Isovue 300 with IV Contrast, (none if empty) Oral contrast used: (none if empty) CT DLP: 319 mGycm, Automated exposure control for dose reduction was used. FINDINGS: Portion of the thyroid visualized is normal. Chronic changes are at the lung apices. Cavitation thickening is present. This appears stable from co mparison. Emphysematous changes are present. No enlarged mediastinal or hilar adenopathy is evident. The ascending aorta diameter at the level o f the main pulmonary artery is 3.2 cm. The main pulmonary artery diameter at the bifurcation is 2.0 cm. Small pericardial effusion may be present this is diminished from comparison. Mild coronary artery calcifications present. Limited CT sections are obtained through the upper abdomen. Abdomen is essentially unremarkable. IMPRESSION: 1. Chronic appearing changes bilateral upper lung hendricks posterior right midlung. 2. Small pericardial effusion. 3. Emphysematous changes [facility], , 08/09/2024 10:06 AM
[2024-08-09] MEDS ORDERED: IPRATROPIUM-ALBUTEROL 3 ML NEB INHALATION PRN (19:46)
[2024-08-09] MEDS: ATORVASTATIN 40 MG TAB PO SCH (20:41)
[2024-08-09] MEDS: ALPRAZolam 0.5 MG TAB PO PRN (23:54)
[2024-08-10 08:08] LABS: HCT 46.4 % (39.6-50.0); HGB 15.1 g/dL (13.0-17.0); MCH 29.7 pg (27.0-32.0); MCHC 32.5 g/dL (32.0-37.0); MCV 91.3 FL (80.0-97.0); Mean Platelet Volume 10.2 FL (9.5-12.2); NRBC Per 100 WBC 0 X 10*3/uL (0.00-0.01); Platelet Count 206 X 10*3/uL (140-440); RBC 5.08 X 10*6/uL (4.40-5.60); RDW 17.5 % (11.5-14.5); WBC 9.98 X 10*3/uL (4.50-10.00)
[2024-08-10 08:09] LABS: Basophils # (A) 0.02 X 10*3/uL (0.00-0.10); Basophils % (A) 0.2 %; Eosinophils # (A) 0 X 10*3/uL (0.04-0.35); Eosinophils % (A) 0 %; Lymphocytes # (A) 1.11 X 10*3/uL (0.90-5.00); Lymphocytes % (A) 11.1 %; Monocytes # (A) 0.57 X 10*3/uL (0.20-1.00); Monocytes % (A) 5.7 %; Neutrophils # (A) 8.19 X 10*3/uL (1.80-7.70); Neutrophils % (A) 82.1 %
[2024-08-10 08:20] LABS: Blood Urea Nitrogen 21.6 mg/dL (9.0-27.0); Calcium 9.1 mg/dL (8.7-10.3); Carbon Dioxide 28.1 mmol/L (21.6-31.8); Chloride 97 mmol/L (96-109); Glucose 154 mg/dL (70-110); Potassium 4.7 mmol/L (3.5-5.5); Sodium 136 mmol/L (135-145)
--- NOTE | 2024-08-10 08:21 | HP ---
HISTORY AND PHYSICAL CHIEF COMPLAINT: Difficulty breathing. HISTORY OF PRESENT ILLNESS: This is a 59-year-old white male who came to the emergency room with difficulty breathing and was admitted with exacerbation of COPD. He has been a long-time smoker. He also has coronary artery disease. Past medical history, family history, and personal and social histories are significant, in that he takes, 1. Prednisone 20 mg once a day. 2. Iron. 3. Trelegy once a day. 4. Albuterol q.i.d. p.r.n. 5. Pantoprazole. 6. Xanax. 7. Updrafts with DuoNeb. 8. Suboxone 8/ three a day. 9. Entresto one half twice a day. 10.Lasix 20 mg once a day. 11.Aspirin. 12.Lipitor 40 once a day. 13.Coreg 3.125 twice a day. ALLERGIES: He is allergic to Plavix. The remainder of the history is unremarkable other than he has had previous myocardial infarctions with congestive heart failure. SOCIAL HISTORY: He continues to smoke. PHYSICAL EXAMINATION: VITAL SIGNS: Normal. HEAD, EARS, EYES, NOSE, and MOUTH: Normal. NECK: Neck veins are not distended. CHEST: Demonstrated increased AP diameter with poor breath sounds along with scattered rales and rhonchi. He was tachypneic and had prolonged expiratory phase. CARDIAC: Demonstrated sinus tachycardia. ABDOMEN: Flat, soft, nontender. EXTREMITIES: Normal. NEUROLOGICAL: He is intact. He is admitted to the hospital with diagnoses of, 1. Exacerbation of chronic obstructive pulmonary disease. 2. Coronary artery disease. PLAN: 1. Bedrest. 2. IV fluids. 3. IV and inhaled steroids. 4. Updrafts. MMODL / IJN: [id number] /
--- NOTE | 2024-08-10 08:21 | PN ---
PROGRESS NOTE DATE OF SERVICE: 08/09/2024 CHIEF COMPLAINT: COPD. HISTORY OF PRESENT ILLNESS: This gentleman is still having difficulty breathing and still quite tight. PHYSICAL EXAMINATION: LUNGS: He still has very poor breath sounds with crackly rales and expiratory wheezing. CARDIAC: Normal. IMPRESSION: 1. Exacerbation of chronic obstructive pulmonary disease. 2. Coronary artery disease. PLAN: Continue with inpatient pulmonary IV treatment. MMNETOL / GAMALN: [id number] /
[2024-08-10] MEDS: IPRATROPIUM-ALBUTEROL 3 ML NEB INHALATION SCH (08:43)
--- NOTE | 2024-08-10 12:46 | P.PN ---
Subjective Progress Note Date: 08/10/24 Patient is a 59-year-old male with past medical history significant for COPD, current ongoing tobacco dependence, oxygen dependence, histoplasmosis lung infection, previous left-sided pneumothorax, coronary artery disease with previous PCI/stents, hypertension, paroxysmal A-fib, ischemic cardiomyopathy wi th a AICD. Patient does follow in the pulmonary office with Dr. Lundberg for management of his COPD/emphysema. Currently on a Trelegy inhaler. Started smoking again approximately 6 months ago, continues to smoke approximately 1/2 to 1 pack/day. He chronically wears 1 L home O2, mostly at night, which he has been wearing [id number] more recently. Reportedly, did see Dr. Lundberg in the office on 07/27/2024. Was given a steroid shot and oral steroid burst taper. He has previously received multiple courses of antibiotics outpatient. Presented the emergency department late last night with a chief complaint acute on chronic shortness of breath. States that he had a upper respiratory infection in April 2024, his respiratory status never returned to baseline. He has been treated in outpatient basis with multiple courses of steroids and antibiotics. Also, states his blood pressure was reading high at home. Workup in the emergency department including a chest x-ray which does not show any acute cardiopulmonary process. There is chronic apical scarring bilaterally. Viral screen negative for influenza A/B, RSV, COVID. CBC with a WBC count of 12.3, hemoglobin 17.5, platelets 243. BMP: Sodium 135, potassium 4.3, chloride 98, serum bicarb 28, BUN 15, creatinine 0.58, glucose 106. Lactic 1.1. LFTs not elevated. Troponin 0.042. NT proBNP only 878. EKG: Sinus tachycardia, rate 114 bpm, minimal ST depression in leads II, 3, aVF. No acute ST segment elevations. Recent outpatient stress test noted. Patient currently being evaluated emergency department. He is resting comfortably on 5 L/min nasal cannula. SpO2 reading 98% on bedside monitor. Audibly wheezing. He smells like tobacco smoke. Endorses increased work of breathing, chest tightness, wheezing and dry cough. Extreme dyspnea with minimal ambulation. Denies fevers. Denies any recent sick contacts. Denies any sputum production, hemoptysis, chest pain. Denies any heart palpitations, lightheadedness/syncopal events, orthopnea, increased lower extremity edema. Current vital signs: Temperature 97.8 F, heart rate 96 beats per minute, blood pressure 126/99 mmHg, nontachypneic, SPO2 recorded at 98% on 5 L/min nasal cannula. The patient is seen today August 10, 2024 in follow-up on the regular medical floor. He is currently up ambulating in his room. Awake and alert in no acute distress. Feeling better today compared to yesterday. Not quite back to his baseline. Still with some dyspnea with conversation. Dyspnea with activity. He is maintaining good O2 saturations in the upper 90s on 3 L/min per nasal cannula. He has been afebrile. Hemodynamically stable. CT scan of the chest revealed chronic appearing changes bilateral upper lung hendricks posterior right midlung. Small pericardial effusion. Emphysematous changes. White count 9.9. Hemoglobin 15.1. Platelets 206. Sodium 136. Potassium 4.7. Bicarb 28. BUN 22. Creatinine 0.6. Glucose 154. He is continued on DuoNeb inhalations, Symbicort, Solu-Medrol. NicoDerm patch in place. Remains on oral diuretics. Remains on azithromycin. Objective - Vital Signs Vital signs: Vital Signs Temp 97.9 F 08/10/24 07:00 Pulse 92 08/10/24 12:15 Resp 18 08/10/24 07:00 BP 135/79 08/10/24 07:00 Pulse Ox 97 08/10/24 08:43 FiO2 Intake & Output 08/09/24 08/10/24 08/10/24 18:59 06:59 18:59 Other: Voiding Method Toilet # Voids 2 - Exam GENERAL EXAM: Alert, active, pleasant 59-year-old male, on 3 L nasal cannula, fairly comfortable in no apparent distress. HEAD: Normocephalic. EYES: Normal reaction of pupils, equal size. NOSE: Clear with pink turbinates. THROAT: No erythema or exudates. NECK: No masses, no JVD. CHEST: No chest wall deformity. LUNGS: Equal air entry with bilateral end expiratory wheeze. CVS: S1 and S2 normal with no audible murmur, regular rhythm. ABDOMEN: No hepatosplenomegaly, normal bowel sounds, no guarding or rigidity. SPINE: No scoliosis or deformity SKIN: No rashes CENTRAL NERVOUS SYSTEM: No focal deficits, tone is normal in all 4 extremities. EXTREMITIES: There is no peripheral edema. No clubbing, no cyanosis. Peripheral pulses are intact. - Labs CBC & Chem 7: 08/10/24 05:09 08/10/24 05:09 Labs: Abnormal Lab Results - Last 24 Hours (Table) 08/10/24 08/10/24 Range/Units 05:09 05:09 RDW 17.5 H (11.5-14.5) % Immature Gran # 0.09 H (0.00-0.04) X 10*3/uL Neutrophils # 8.19 H (1.80-7.70) X 10*3/uL Eosinophils # 0 L (0.04-0.35) X 10*3/uL BUN/Creatinine Ratio 36.00 H (12.00-20.00) Ratio Glucose 154 H (70-110) mg/dL Assessment and Plan Assessment: Acute COPD exacerbation Acute on chronic hypoxemic respiratory failure, secondary to above Current ongoing tobacco dependence Elevated troponin, likely secondary to supply/demand mismatch Moderate to severe chronic obstructive pulmonary disease, with an FEV1 50% of predicted; normally maintained on a combination of Trelegy inhaler, albuterol nebs [id number], and albuterol rescue inhaler as needed. Chronic hypoxemic respiratory failure History of pulmonary histoplasmosis History of previous left-sided pneumothorax History of coronary artery disease History of paroxysmal atrial fibrillation History of ischemic cardiomyopathy with AICD/pacemaker, ejection fraction of 30 to 35% Hypertension History of hyperlipidemia Plan: The patient was seen and evaluated CT scan of the chest, labs and medications reviewed Remains on oxygen at 3 L/min per nasal cannula Continued on DuoNeb and elations Continued on Symbicort Continued on Solu-Medrol NicoDerm patch in place Educated regarding smoking cessation Increase his activity as tolerated We will continue to follow I have personally seen and examined the patient, performed the documentation and the assessment and plan as written. Number of minutes spent on the visit: 10 Dictation was produced using [employer] dictation software. Please excuse any gra mmatical, word or spelling errors.
[2024-08-10] MEDS ORDERED: IPRATROPIUM-ALBUTEROL 3 ML NEB INHALATION PRN (18:18)
[2024-08-10] MEDS ORDERED: NON FORMULARY DRUG (Buprenorphine Hcl/Naloxone Hcl [Suboxone 8 Mg-2 Mg Sl Film] 1 EACH Fil SUBLINGUAL PRN (18:18)
[2024-08-10] MEDS ORDERED: ATORVASTATIN 40 MG TAB PO SCH (21:00)
[2024-08-10] MEDS: SACUBITRIL/VALSARTAN 24 MG-26 MG TABLET PO SCH (23:03)
[2024-08-10] MEDS: ASPIRIN 81 MG PO SCH (23:03)
[2024-08-10] MEDS: ALPRAZolam 0.25 MG TAB PO PRN (23:04)
--- NOTE | 2024-08-11 03:57 | PN ---
PROGRESS NOTE CHIEF COMPLAINT: Exacerbation of COPD. HISTORY OF PRESENT ILLNESS: This gentleman is doing fairly well. Breathing is little bit better since he has been on the steroids overnight. PHYSICAL EXAMINATION: LUNGS: Breath sounds are diminished. He still has scattered rales and rhonchi. CARDIAC: Normal. ABDOMEN: Soft and nontender. IMPRESSION: 1. Exacerbation of chronic obstructive pulmonary disease. 2. Elevated troponin and BNP. PLAN: Continue with pulmonary program and consider cardiac evaluation upon repeating these studies. MMODL / IJN: [id number] /
[2024-08-11] MEDS ORDERED: NON FORMULARY DRUG (Fluticasone/Umeclidin/Vilanter [Trelegy Ellipta 200-62.5-25] 1 EACH Bl INHALATION SCH (08:00)
[2024-08-11] MEDS: carvediloL 3.125 MG TAB PO SCH (08:40)
[2024-08-11] MEDS ORDERED: PANTOPRAZOLE 40 MG TABLET PO SCH (09:00)
[2024-08-11] MEDS ORDERED: FUROSEMIDE 20 MG TAB PO SCH (09:00)
--- NOTE | 2024-08-11 11:46 | P.PN ---
Subjective Progress Note Date: 08/11/24 Patient is a 59-year-old male with past medical history significant for COPD, current ongoing tobacco dependence, oxygen dependence, histoplasmosis lung infection, previous left-sided pneumothorax, coronary artery disease with previous PCI/stents, hypertension, paroxysmal A-fib, ischemic cardiomyopathy wi th a AICD. Patient does follow in the pulmonary office with Dr. Lundberg for management of his COPD/emphysema. Currently on a Trelegy inhaler. Started smoking again approximately 6 months ago, continues to smoke approximately 1/2 to 1 pack/day. He chronically wears 1 L home O2, mostly at night, which he has been wearing [id number] more recently. Reportedly, did see Dr. Lundberg in the office on 07/27/2024. Was given a steroid shot and oral steroid burst taper. He has previously received multiple courses of antibiotics outpatient. Presented the emergency department late last night with a chief complaint acute on chronic shortness of breath. States that he had a upper respiratory infection in April 2024, his respiratory status never returned to baseline. He has been treated in outpatient basis with multiple courses of steroids and antibiotics. Also, states his blood pressure was reading high at home. Workup in the emergency department including a chest x-ray which does not show any acute cardiopulmonary process. There is chronic apical scarring bilaterally. Viral screen negative for influenza A/B, RSV, COVID. CBC with a WBC count of 12.3, hemoglobin 17.5, platelets 243. BMP: Sodium 135, potassium 4.3, chloride 98, serum bicarb 28, BUN 15, creatinine 0.58, glucose 106. Lactic 1.1. LFTs not elevated. Troponin 0.042. NT proBNP only 878. EKG: Sinus tachycardia, rate 114 bpm, minimal ST depression in leads II, 3, aVF. No acute ST segment elevations. Recent outpatient stress test noted. Patient currently being evaluated emergency department. He is resting comfortably on 5 L/min nasal cannula. SpO2 reading 98% on bedside monitor. Audibly wheezing. He smells like tobacco smoke. Endorses increased work of breathing, chest tightness, wheezing and dry cough. Extreme dyspnea with minimal ambulation. Denies fevers. Denies any recent sick contacts. Denies any sputum production, hemoptysis, chest pain. Denies any heart palpitations, lightheadedness/syncopal events, orthopnea, increased lower extremity edema. Current vital signs: Temperature 97.8 F, heart rate 96 beats per minute, blood pressure 126/99 mmHg, nontachypneic, SPO2 recorded at 98% on 5 L/min nasal cannula. The patient is seen today August 10, 2024 in follow-up on the regular medical floor. He is currently up ambulating in his room. Awake and alert in no acute distress. Feeling better today compared to yesterday. Not quite back to his baseline. Still with some dyspnea with conversation. Dyspnea with activity. He is maintaining good O2 saturations in the upper 90s on 3 L/min per nasal cannula. He has been afebrile. Hemodynamically stable. CT scan of the chest revealed chronic appearing changes bilateral upper lung hendricks posterior right midlung. Small pericardial effusion. Emphysematous changes. White count 9.9. Hemoglobin 15.1. Platelets 206. Sodium 136. Potassium 4.7. Bicarb 28. BUN 22. Creatinine 0.6. Glucose 154. He is continued on DuoNeb inhalations, Symbicort, Solu-Medrol. NicoDerm patch in place. Remains on oral diuretics. Remains on azithromycin. The patient is seen today August 11, 2024 in follow-up on the regular medical rosi or. Currently sitting up in a chair at the bedside. Awake and alert in no acute distress. Maintaining O2 saturations in the upper 90s on 3 L/min per nasal cannula. He is afebrile. Hemodynamically stable. Magnesium 2.1. He remains on DuoNeb inhalations, Symbicort, Solu-Medrol. NicoDerm patch in place. Objective - Vital Signs Vital signs: Vital Signs Temp 97.4 F L 08/11/24 06:55 Pulse 92 08/11/24 11:26 Resp 18 08/11/24 08:00 BP 135/89 08/11/24 06:55 Pulse Ox 97 08/11/24 06:55 FiO2 Intake & Output 08/10/24 08/11/24 08/11/24 18:59 06:59 18:59 Intake Total 118 550 222 Balance 118 550 222 Intake: Oral 118 550 222 Other: Voiding Method Toilet # Voids 1 1 - Exam GENERAL EXAM: Alert, active, 59-year-old male, sitting up in a chair, on 3 L nasal cannula, comfortable in no apparent distress. HEAD: Normocephalic. EYES: Normal reaction of pupils, equal size. NOSE: Clear with pink turbinates. THROAT: No erythema or exudates. NECK: No masses, no JVD. CHEST: No chest wall deformity. LUNGS: Equal air entry with bilateral end expiratory wheeze. CVS: S1 and S2 normal with no audible murmur, regular rhythm. ABDOMEN: No hepatosplenomegaly, normal bowel sounds, no guarding or rigidity. SPINE: No scoliosis or deformity SKIN: No rashes CENTRAL NERVOUS SYSTEM: No focal deficits, tone is normal in all 4 extremities. EXTREMITIES: There is no peripheral edema. No clubbing, no cyanosis. Peripheral pulses are intact. - Labs CBC & Chem 7: 08/10/24 05:09 08/10/24 05:09 Assessment and Plan Assessment: Acute on chronic hypoxemic respiratory failure secondary to an acute exacerbation of chronic obstructive pulmonary disease Current ongoing tobacco dependence Elevated troponin, likely secondary to supply/demand mismatch Moderate to severe chronic obstructive pulmonary disease, with an FEV1 50% of predicted; normally maintained on a combination of Trelegy inhaler, albuterol nebs [id number], and albuterol rescue inhaler as needed. Chronic hypoxemic respiratory failure History of pulmonary histoplasmosis History of previous left-sided pneumothorax History of coronary artery disease History of paroxysmal atrial fibrillation History of ischemic cardiomyopathy with AICD/pacemaker, ejection fraction of 30 to 35% Hypertension History of hyperlipidemia Plan: The patient was seen and evaluated Labs and medications reviewed Remains on oxygen at 3 L/min per nasal cannula Continued on DuoNeb inhalations Continued on Symbicort Continued on Solu-Medrol NicoDerm patch in place Again educated regarding smoking cessation Increase his activity as tolerated Probable discharge in a.m. We will continue to follow I have personally seen and examined the patient, performed the documentation and the assessment and plan as written. Number of minutes spent on the visit: 10 Dictation was produced using [employer] software. Please excuse any grammatical, word or spelling errors.
--- NOTE | 2024-08-11 14:06 | P.CRDCN ---
History of Present Illness Consult date: 08/11/24 Requesting physician: Jarrod Velázquez Reason for Consult (text): cad Chief complaint: shortness of breath History of present illness: This is a pleasant 59-year-old gentleman patient of Dr. Owens with past medical history of CAD status post multiple stents done in the [place] area, ischemic cardiomyopathy, AICD, hypertension, hyperlipidemia, tobacco abuse, severe COPD and prior GI bleed. Presented to the hospital with complaints of worsening shortness of breath. The patient previously quit smoking but had resumed. He had become progressively more short of breath. He has been on home oxygen since April. He complains of minimal lower extremity edema since starting steroids. He has complaints of random left-sided chest tightness not related to activity. He underwent outpatient Lexiscan done here in June that showed old infarct but could not exclude acute margoth-infarct ischemia. He was scheduled to see Dr. Owens a few days ago but canceled due to hospitalization. He continues to complain of significant shortness of breath, orthopnea and wheezing. He had an 11 beat run of nonsustained VT this morning at around 745 that was asymptomatic. Diagnostics -EKG: Sinus rhythm with PACs -Chest x-ray: Scarring changes in the upper lobes bilaterally, improved from , no acute cardiopulmonary disease/process -Chest CT: Chronic appearing changes bilateral upper lung hendricks posterior right midlung, small pericardial effusion, emphysematous changes -Laboratory studies: Troponin 0.042, NT proBNP 878 -Home cardiac medications: Aspirin 81 mg p.o. daily, Lasix 20 mg p.o. daily, carvedilol 3.125 mg p.o. twice daily, Entresto 24-26 mg half a tablet p.o. twice daily. -Prior stress test: June 2024 old infarct/dilated cardiomyopathy involving the septum and apex, cannot exclude acute margoth-infarct ischemia -Echocardiogram: April 2023 ejection fraction 30% with segmental wall motion abnormality, mild to moderate MR mild TR and PA pressure 35 mmHg -Cardiac catheterization: Not available Review Of Systems: At the time of my exam: CONSTITUTIONAL: Denies fever or chills. HEENT: Denies blurred vision, vision changes. CARDIOVASCULAR: Denies chest pain. Denies PND. Denies palpitations, dizziness, or syncope. RESPIRATORY: Complains of shortness of breath, wheezing, and cough. Complains of orthopnea denies hemoptysis. GASTROINTESTINAL: Denies abdominal pain. Denies nausea or vomiting. Denies bleeding. HEMATOLOGIC: Denies bleeding disorders. GENITOURINARY: Denies hematuria. SKIN: Denies puritis. Denies rash. PHYSICAL EXAMINATION: This is a 59-year-old gentleman in no apparent distress at the time of my examination. VITAL SIGNS: Reviewed. HEENT: Head is atraumatic, normocephalic. Pupils are equal, round. Sclerae anicteric. Conjunctivae are clear. Mucous membranes of the mouth are moist. Neck is supple. There is no elevated jugular venous pressure. No carotid bruit is heard. CHEST EXAMINATION: Wheezing throughout. Respirations even and nonlabored. HEART EXAMINATION: Heart regular, positive S1 and S2. No S3. No S4. No clicks, rubs or murmurs. ABDOMEN: Soft, nontender. Bowel sounds are heard. No organomegaly noted. EXTREMITIES: 2+ peripheral pulses with no evidence of peripheral edema and no calf tenderness noted. NEUROLOGIC EXAMINATION: Patient is awake, alert and oriented x3. Assessment: 1. CAD status post multiple stenting, recent stress test showing possibility of acute margoth-infarct ischemia 2. Ischemic cardiomyopathy status post ICD patient appears euvolemic 3. Acute COPD exacerbation 4. Nicotine dependence Plan: From cardiology's perspective we obtain a 2D echo with Doppler study. Patient will likely be evaluated as an outpatient by Dr. Owens for further ischemic workup once lung status is improved. Discussed importance of smoking cessation. Check magnesium. Thank you kindly for this consultation. Nurse practitioner note has been reviewed, I agree with documented findings and plan of care. Patient was seen and examined. Past Medical History Past Medical History: Atrial Fibrillation, Coronary Artery Disease (CAD), Chest Pain / Angina, Heart Failure, COPD, Myocardial Infarction ([place]) Additional Past Medical History / Comment(s): Pt recently sent from [facility] ER to [facility] for lower GI bleed/he states he had endoscopies and was told he had an ulcer/polyps and hemorrhoids, pt also recently admitted to [facility] and treated for double pneumonia/sepsis/histoplasmosis infection and was sent home with home oxygen. Other hx: Severe COPD, past norco addiction and is on suboxone past 4 year and it is being weaned down, MIs x3. Last Myocardial Infarction Date:: 2008 History of Any Multi-Drug Resistant Organisms: None Reported Past Surgical History: AICD, Heart Catheterization, Heart Catheterization With Stent, Hernia Repair, Orthopedic Surgery, Pacemaker Additional Past Surgical History / Comment(s): PCI with stents, AICD/pacer, E GD/colonoscopy, bronchoscopies x2, bilateral inguinal hernia repairs, bilateral carpal tunnel releases. Past Anesthesia/Blood Transfusion Reactions: No Reported Reaction Date of Last Stent Placement:: 2010 Type of Cardiac Device: Permanent Pacemaker, AICD Device Placement Date:: 2008 Past Psychological History: No Psychological Hx Reported Smoking Status: Former smoker Past Alcohol Use History: None Reported Past Drug Use History: None Reported - Past Family History Father Family Medical History: No Reported History Additional Family Medical History / Comment(s): Father pt believes d/t his spouses passing. Mother Family Medical History: Myocardial Infarction ([place]) Additional Family Medical History / Comment(s): Mother of a massive [place] at the age of 53yrs. Medications and Allergies Home Medications Medication Instructions Recorded Confirmed Type Buprenorphine HCl/Naloxone HCl 1 film SL TID PRN 03/13/15 08/09/24 History [Suboxone 8 mg-2 mg Sl Film] Aspirin [Adult Low Dose Aspirin EC] 81 tab PO HS 03/28/17 08/09/24 History Atorvastatin [Lipitor] 40 mg PO HS 06/19/21 08/09/24 History Fluticasone/Umeclidin/Vilanter 1 puff INHALATION RT-DAILY 06/19/21 08/09/24 History [Trelegy Ellipta 200-62.5-25] Pantoprazole [Protonix] 40 mg PO DAILY 08/04/21 08/09/24 History ALPRAZolam [Xanax] 0.25 mg PO TID PRN 08/09/24 08/09/24 History Furosemide [Lasix] 20 mg PO DAILY 08/09/24 08/09/24 History Ipratropium-Albuterol Nebulize 3 ml INHALATION RT-QID PRN 08/09/24 08/09/24 Hist ory [Duoneb 0.5 mg-3 mg/3 ml Soln] Sacubitril/Valsartan [Entresto 24 0.5 tab PO BID 08/09/24 08/09/24 History mg-26 mg Tablet] carvediloL [Coreg] 3.125 mg PO BID 08/09/24 08/09/24 History predniSONE See Taper PO DIRECTED 08/09/24 08/09/24 History Allergies Allergy/AdvReac Type Severity Reaction Status Date / Time clopidogrel bisulfate Allergy Anaphylaxis Verified 08/09/24 10:56 [From Plavix] Physical Exam Vitals: Vital Signs Temp Pulse Pulse Resp BP BP Pulse Ox 08/11/24 11:26 92 08/11/24 11:09 89 08/11/24 08:00 18 08/11/24 06:55 97.4 F L 85 16 135/89 97 08/11/24 03:17 97.7 F 78 18 96/63 98 08/10/24 19:55 104 H 08/10/24 19:10 97.6 F 104 H 19 130/93 98 08/10/24 16:02 96 08/10/24 15:52 96 08/10/24 15:00 97.7 F 110 H 18 142/96 98 08/10/24 14:00 18 Intake and Output 08/10/24 08/11/24 08/11/24 22:59 06:59 14:59 Intake Total 550 222 Balance 550 222 Intake: Oral 550 222 Other: Voiding Method Toilet Toilet # Voids 1 1 3 # Bowel Movements 0 Results 08/10/24 05:09 08/10/24 05:09 Cardiac Enzymes 08/11/24 Range/Units 11:09 Troponin I 0.033 (0.000-0.034) ng/mL Current Medications Generic Name Dose Route Start Last Admin Trade Name Freq PRN Reason Stop Dose Admin Albuterol/Ipratropium 3 ml 08/10/24 08:00 08/11/24 11:09 Ipratropium-Albuterol 3 Ml Neb INHALATION 3 ml RT-QID MARIANGEL Administration Albuterol/Ipratropium 3 ml 08/09/24 19:46 Ipratropium-Albuterol 3 Ml Neb INHALATION RT-Q4H PRN Shortness Of Breath Or Wheezing Alprazolam 0.25 mg 08/10/24 18:18 08/10/24 23:04 Alprazolam 0.25 Mg Tab PO 0.25 mg TID PRN Administration Anxiety Aspirin 81 mg 08/10/24 21:00 08/10/24 23:03 Aspirin 81 Mg PO 81 mg HS MARIANGEL Administration Atorvastatin Calcium 40 mg 08/09/24 21:00 08/10/24 23:04 Atorvastatin 40 Mg Tab PO 40 mg HS MARIANGEL Administration Budesonide/Formoterol Fumarate 2 puff 08/09/24 08:00 08/11/24 08:16 Symbicort 160-4.5 Mcg Inhaler INHALATION Not Given RT-BID MARIANGEL Carvedilol 3.125 mg 08/11/24 07:30 08/11/24 08:40 Carvedilol 3.125 Mg Tab PO 3.125 mg BID-W/MEALS MARIANGEL Administration Furosemide 20 mg 08/09/24 09:00 08/11/24 08:41 Furosemide 20 Mg Tab PO 20 mg DAILY MARIANGEL Administration Guaifenesin/Dextromethorphan 10 ml 08/09/24 05:39 Guaifenesin-Dm 100-10mg/5ml 10 Ml Cup PO Q6HR PRN Cough Methylprednisolone Sodium Succinate 60 mg 08/09/24 06:00 08/11/24 11:55 Methylprednisolone Sod Succi 40 Mg/Ml 1 Ml Vial IV 60 mg Q6HR MARIANGEL Administration Naloxone HCl 0.2 mg 08/09/24 00:45 Naloxone 0.4 Mg/Ml 1 Ml Vial IV Q2M PRN Opioid Reversal Nicotine 1 patch 08/09/24 09:00 08/11/24 08:41 Nicotine 21mg/24hr Patch TRANSDERM 1 patch DAILY PENDING SALE TO [facility] Administration Non-Formulary Medication 1 film 08/10/24 18:18 Buprenorphine Hcl/Naloxone Hcl [Suboxone 8 Mg-2 Mg Sl Film] SUBLINGUAL TID PRN Pain/Withdrawal Pantoprazole Sodium 40 mg 08/09/24 07:30 08/11/24 11:25 Pantoprazole 40 Mg Tablet PO 40 mg [id number] MARIANGEL Administration Sacubitril/Valsartan 0.5 each 08/10/24 21:00 08/11/24 08:40 Sacubitril/Valsartan 24 Mg-26 Mg Tablet PO 0.5 each BID MARIANGEL Administration Intake and Output 08/10/24 08/11/24 08/11/24 22:59 06:59 14:59 Intake Total 550 222 Balance 550 222 Intake: Oral 550 222 Other: Voiding Method Toilet Toilet # Voids 1 1 3 # Bowel Movements 0 08/10/24 05:09 08/10/24 05:09
--- NOTE | 2024-08-11 15:47 | CA ---
Transthoracic Echo Report Name: Yuan Li Age: 59 Gender: M : 1965 Exam Date: 08/11/2024 13:53 Exam Location: [facility] Ht (in): 67 Wt (lb): 135 Ordering Physician: Jolynn Michele Attending/Referring Phys: [id number], [facility] Out[facility] Specialist Mai Villatoro RDCS Procedure CPT: Indications: cardiomyopathy Cardiac Hx: Technical Quality: Poor Contrast 1: Definity Total Dose (mL): 2 Contrast 2: Total Dose (mL): MEASUREMENTS (Male / Female) Normal Values 2D ECHO LV Diastolic Diameter PLAX 5.3 cm 4.2 - 5.9 / 3.9 - 5.3 cm LV Systolic Diameter PLAX 4.6 cm IVS Diastolic Thickness 0.8 cm 0.6 - 1.0 / 0.6 - 0.9 cm LVPW Diastolic Thickness 0.9 cm 0.6 - 1.0 / 0.6 - 0.9 cm LV Relative Wall Thickness 0.3 LVOT Diameter 1.8 cm LV Diastolic Volume MOD BP 199.8 cm??? 67 - 155 / 56 - 104 cm??? LV Systolic Volume MOD BP 131.1 cm??? 22 - 58 / 19 - 49 cm??? LV Ejection Fraction MOD BP 34.4 % >= 55 % LV Cardiac Index MOD BP 2668.1 cm???/min???m??? LV Diastolic Volume MOD 4C 175.2 cm??? LV Systolic Volume MOD 4C 122.2 cm??? LV Ejection Fraction MOD 4C 30.3 % LV Cardiac Index MOD 4C 2059.0 cm???/min???m??? LV Diastolic Length 4C 9.1 cm LV Systolic Length 4C 8.9 cm LV Diastolic Volume MOD 2C 212.4 cm??? LV Systolic Volume MOD 2C 134.5 cm??? LV Ejection Fraction MOD 2C 36.7 % LV Cardiac Index MOD 2C 3022.9 cm???/min???m??? LV Diastolic Length 2C 9.8 cm LV Systolic Length 2C 9.4 cm LA Volume 22.6 cm??? 18 - 58 / 22 - 52 cm??? LA Volume Index 13.3 cm???/m??? 16 - 28 cm???/m??? DOPPLER AV Peak Velocity 132.2 cm/s AV Peak Gradient 7.0 mmHg AV Mean Velocity 78.4 cm/s AV Mean Gradient 3.0 mmHg AV Velocity Time Integral 18.2 cm LVOT Peak Velocity 109.4 cm/s LVOT Peak Gradient 4.8 mmHg LVOT Velocity Time Integral 15.1 cm LVOT Stroke Volume 37.7 cm??? LVOT Stroke Volume Index 22.0 ml/m??? LVOT Cardiac Index 1462.7 cm???/min???m??? AV Area Cont Eq vti 2.1 cm??? AV Area Cont Eq pk 2.1 cm??? MV Area PHT 2.5 cm??? Mitral E Point Velocity 44.6 cm/s Mitral A Point Velocity 100.5 cm/s Mitral E to A Ratio 0.4 MV Deceleration Time 302.0 ms MV E' Velocity 3.6 cm/s Mitral E to MV E' Ratio 12.5 FINDINGS Left Ventricle Moderately increased left ventricular diastolic volume. Severely increased left ventricular systolic volume. Severely decreased left ventricular ejection fraction. Left ventricular ejection fraction is estimated at 25-30 %. Anteroapical, anteroseptal and anterolateral akinesis Right Ventricle Normal right ventricular size and function. Right Atrium Normal right atrial size. Left Atrium Normal left atrial size. Mitral Valve Structurally normal mitral valve. Mild mitral regurgitation. Aortic Valve Trileaflet aortic valve. No aortic valve stenosis or regurgitation. Tricuspid Valve Structurally normal tricuspid valve. Mild tricuspid regurgitation. Pulmonic Valve Pulmonic valve not well visualized. Pericardium Minimal pericardial effusion (normal variant). Aorta Normal size aortic root and proximal ascending aorta. CONCLUSIONS Technically difficult study. Definity ECHO contrast used for improved visualization of the endocardial borders (inadequate visualization of two or more contiguous segments). Severely impaired left ventricular systolic function with segmental wall motion abnormality Mild mitral and tricuspid regurgitation Previewed by: Dr. Andrea Crisostomo MD (Electronically Signed) Final Date: 11 August 2024 15:46
--- NOTE | 2024-08-12 10:46 | P.PN ---
Subjective Progress Note Date: 08/12/24 Patient is a 59-year-old male with past medical history significant for COPD, current ongoing tobacco dependence, oxygen dependence, histoplasmosis lung infection, previous left-sided pneumothorax, coronary artery disease with previous PCI/stents, hypertension, paroxysmal A-fib, ischemic cardiomyopathy wi th a AICD. Patient does follow in the pulmonary office with Dr. Lundberg for management of his COPD/emphysema. Currently on a Trelegy inhaler. Started smoking again approximately 6 months ago, continues to smoke approximately 1/2 to 1 pack/day. He chronically wears 1 L home O2, mostly at night, which he has been wearing [id number] more recently. Reportedly, did see Dr. Lundberg in the office on 07/27/2024. Was given a steroid shot and oral steroid burst taper. He has previously received multiple courses of antibiotics outpatient. Presented the emergency department late last night with a chief complaint acute on chronic shortness of breath. States that he had a upper respiratory infection in April 2024, his respiratory status never returned to baseline. He has been treated in outpatient basis with multiple courses of steroids and antibiotics. Also, states his blood pressure was reading high at home. Workup in the emergency department including a chest x-ray which does not show any acute cardiopulmonary process. There is chronic apical scarring bilaterally. Viral screen negative for influenza A/B, RSV, COVID. CBC with a WBC count of 12.3, hemoglobin 17.5, platelets 243. BMP: Sodium 135, potassium 4.3, chloride 98, serum bicarb 28, BUN 15, creatinine 0.58, glucose 106. Lactic 1.1. LFTs not elevated. Troponin 0.042. NT proBNP only 878. EKG: Sinus tachycardia, rate 114 bpm, minimal ST depression in leads II, 3, aVF. No acute ST segment elevations. Recent outpatient stress test noted. Patient currently being evaluated emergency department. He is resting comfortably on 5 L/min nasal cannula. SpO2 reading 98% on bedside monitor. Audibly wheezing. He smells like tobacco smoke. Endorses increased work of breathing, chest tightness, wheezing and dry cough. Extreme dyspnea with minimal ambulation. Denies fevers. Denies any recent sick contacts. Denies any sputum production, hemoptysis, chest pain. Denies any heart palpitations, lightheadedness/syncopal events, orthopnea, increased lower extremity edema. Current vital signs: Temperature 97.8 F, heart rate 96 beats per minute, blood pressure 126/99 mmHg, nontachypneic, SPO2 recorded at 98% on 5 L/min nasal cannula. The patient is seen today August 10, 2024 in follow-up on the regular medical floor. He is currently up ambulating in his room. Awake and alert in no acute distress. Feeling better today compared to yesterday. Not quite back to his baseline. Still with some dyspnea with conversation. Dyspnea with activity. He is maintaining good O2 saturations in the upper 90s on 3 L/min per nasal cannula. He has been afebrile. Hemodynamically stable. CT scan of the chest revealed chronic appearing changes bilateral upper lung hendricks posterior right midlung. Small pericardial effusion. Emphysematous changes. White count 9.9. Hemoglobin 15.1. Platelets 206. Sodium 136. Potassium 4.7. Bicarb 28. BUN 22. Creatinine 0.6. Glucose 154. He is continued on DuoNeb inhalations, Symbicort, Solu-Medrol. NicoDerm patch in place. Remains on oral diuretics. Remains on azithromycin. The patient is seen today August 11, 2024 in follow-up on the regular medical rosi or. Currently sitting up in a chair at the bedside. Awake and alert in no acute distress. Maintaining O2 saturations in the upper 90s on 3 L/min per nasal cannula. He is afebrile. Hemodynamically stable. Magnesium 2.1. He remains on DuoNeb inhalations, Symbicort, Solu-Medrol. NicoDerm patch in place. The patient is seen today August 12, 2024 in follow-up on the regular medical floor. He is awake and alert in no acute distress. Sitting up in a chair. Still not quite back to his baseline. Still dyspneic with conversation. Dyspneic with exertion. He has been afebrile. Hemodynamically stable. Maintaining O2 saturations in the 90s on 3 L/min per nasal cannula. No new labs today. Is on DuoNeb inhalations, Symbicort, Solu-Medrol. Remains on oral diuretics. NicoDerm patch in place. Objective - Vital Signs Vital signs: Vital Signs Temp 97.5 F L 08/12/24 01:33 Pulse 100 08/12/24 08:29 Resp 17 04/13/25 07:00 BP 123/75 08/12/24 07:00 Pulse Ox 98 08/12/24 08:18 FiO2 Intake & Output 08/11/24 08/12/24 08/12/24 18:59 06:59 18:59 Intake Total 762 590 Balance 762 590 Intake: Oral 762 590 Other: Voiding Method Toilet Toilet Toilet # Voids 3 2 # Bowel Movements 0 - Exam GENERAL EXAM: Alert, pleasant 59-year-old male, up in a chair, on 3 L nasal cannula, in no apparent distress. HEAD: Normocephalic. EYES: Normal reaction of pupils, equal size. NOSE: Clear with pink turbinates. THROAT: No erythema or exudates. NECK: No masses, no JVD. CHEST: No chest wall deformity. LUNGS: Equal air entry with bilateral end expiratory wheeze. CVS: S1 and S2 normal with no audible murmur, regular rhythm. ABDOMEN: No hepatosplenomegaly, normal bowel sounds, no guarding or rigidity. SPINE: No scoliosis or deformity SKIN: No rashes CENTRAL NERVOUS SYSTEM: No focal deficits, tone is normal in all 4 extremities. EXTREMITIES: There is no peripheral edema. No clubbing, no cyanosis. Peripheral pulses are intact. - Labs CBC & Chem 7: 08/10/24 05:09 08/10/24 05:09 Assessment and Plan Assessment: Acute on chronic hypoxemic respiratory failure secondary to an acute exacerbation of chronic obstructive pulmonary disease Current and ongoing tobacco dependence Elevated troponin, likely secondary to supply/demand mismatch Moderate to severe chronic obstructive pulmonary disease, with an FEV1 50% of predicted; normally maintained on a combination of Trelegy inhaler, albuterol nebs [id number], and albuterol rescue inhaler as needed. Chronic hypoxemic respiratory failure History of pulmonary histoplasmosis History of previous left-sided pneumothorax History of coronary artery disease History of paroxysmal atrial fibrillation History of ischemic cardiomyopathy with AICD/pacemaker, ejection fraction of 30 to 35% Hypertension History of hyperlipidemia Plan: The patient was seen and evaluated Medications reviewed Remains on 3 L/min per nasal cannula Continued on DuoNeb inhalations, Symbicort Continued on Solu-Medrol NicoDerm patch in place Increase his activity as tolerated He has been slow to progress We will continue to follow I have personally seen and examined the patient, performed the documentation and the assessment and plan as written. Number of minutes spent on the visit: 10 Dictation was produced using [employer] dictation software. Please excuse any grammatical, word or spelling errors.
--- NOTE | 2024-08-12 12:23 | P.PN ---
Subjective Progress Note Date: 08/12/24 This is a pleasant 59-year-old gentleman patient of Dr. Owens with past medical history of CAD status post multiple stents done in the [place] area, ischemic cardiomyopathy, AICD, hypertension, hyperlipidemia, tobacco abuse, severe COPD and prior GI bleed. Presented to the hospital with complaints of wo rsening shortness of breath. The patient previously quit smoking but had resumed. He had become progressively more short of breath. He has been on home oxygen since April. He complains of minimal lower extremity edema since starting steroids. He has complaints of random left-sided chest tightness not related to activity. He underwent outpatient Lexiscan done here in June that showed old infarct but could not exclude acute margoth-infarct ischemia. He was scheduled to see Dr. Owens a few days ago but canceled due to hospitalization. He continues to complain of significant shortness of breath, orthopnea and wheezing. He had an 11 beat run of nonsustained VT this morning at around 745 that was asymptomatic. Diagnostics -EKG: Sinus rhythm with PACs -Chest x-ray: Scarring changes in the upper lobes bilaterally, improved from 2021, no acute cardiopulmonary disease/process -Chest CT: Chronic appearing changes bilateral upper lung hendricks posterior right midlung, small pericardial effusion, emphysematous changes -Laboratory studies: Troponin 0.042, NT proBNP 878 -Home cardiac medications: Aspirin 81 mg p.o. daily, Lasix 20 mg p.o. daily, carvedilol 3.125 mg p.o. twice daily, Entresto 24-26 mg half a tablet p.o. twice daily. -Prior stress test: June 2024 old infarct/dilated cardiomyopathy involving the septum and apex, cannot exclude acute margoth-infarct ischemia -Echocardiogram: April 2023 ejection fraction 30% with segmental wall motion abnormality, mild to moderate MR mild TR and PA pressure 35 mmHg -Cardiac catheterization: Not available 08/12/2024 Patient was seen and examined sitting up in a chair. Overall does not feel much better compared to yesterday. Continues to feel quite short of breath with getting up to the bathroom. Continues to be followed by pulmonary. He denies any complaints of chest discomfort. Echocardiogram with Doppler study showed s everely impaired LV systolic function with segmental wall motion abnormality similar to previous, ejection fraction 25 to 30% with mild MR and mild TR. PHYSICAL EXAMINATION: This is a 59-year-old gentleman in no apparent distress at the time of my examination. VITAL SIGNS: Reviewed. HEENT: Head is atraumatic, normocephalic. Pupils are equal, round. Sclerae anicteric. Conjunctivae are clear. Mucous membranes of the mouth are moist. Neck is supple. There is no elevated jugular venous pressure. No carotid bruit is heard. CHEST EXAMINATION: Wheezing throughout. Respirations even and nonlabored. HEART EXAMINATION: Heart regular, positive S1 and S2. No S3. No S4. No clicks, rubs or murmurs. ABDOMEN: Soft, nontender. Bowel sounds are heard. No organomegaly noted. EXTREMITIES: 2+ peripheral pulses with no evidence of peripheral edema and no calf tenderness noted. NEUROLOGIC EXAMINATION: Patient is awake, alert and oriented x3. Assessment: 1. CAD status post multiple stenting, recent stress test showing possibility of acute margoth-infarct ischemia 2. Ischemic cardiomyopathy status post ICD patient appears euvolemic 3. Acute COPD exacerbation 4. Nicotine dependence Plan: From cardiology's perspective patient will likely be evaluated as an outpatient by Dr. Owens for further ischemic workup once lung status is improved. Discussed importance of smoking cessation. Nurse practitioner note has been reviewed, I agree with documented findings and plan of care. Patient was seen and examined. Objective - Vital Signs Vital signs: Vital Signs Temp 97.5 F L 08/12/24 01:33 Pulse 100 08/12/24 08:29 Resp 17 08/12/24 07:00 BP 123/75 08/12/24 07:00 Pulse Ox 98 08/12/24 08:18 FiO2 Intake & Output 08/11/24 08/12/24 08/12/24 18:59 06:59 18:59 Intake Total 762 590 Balance 762 590 Intake: Oral 762 590 Other: Voiding Method Toilet Toilet Toilet # Voids 3 2 # Bowel Movements 0 - Labs CBC & Chem 7: 08/10/24 05:09 08/10/24 05:09
--- NOTE | 2024-08-12 23:03 | PN ---
PROGRESS NOTE CHIEF COMPLAINT: Exacerbation, COPD. HISTORY OF PRESENT ILLNESS: This gentleman is doing a little bit better, but he is still quite dyspneic. He has had no chest pain. He has been evaluated by Cardiology. PHYSICAL EXAMINATION: CHEST: Demonstrates poor breath sounds due to his emphysema, but there are very few rales or rhonchi. CARDIAC: Normal. IMPRESSION: 1. Exacerbation of chronic obstructive pulmonary disease. 2. Coronary artery disease. PLAN: Continue with inpatient program until his pulmonary function improves. MMODL / IJN: [id number] /
--- NOTE | 2024-08-12 23:09 | PN ---
PROGRESS NOTE DATE OF SERVICE: 08/12/2024 CHIEF COMPLAINT: COPD. HISTORY OF PRESENT ILLNESS: This gentleman is doing quite well. Breathing is slowly improving. He will probably be able to go home soon. He has had no chest pain. PHYSICAL EXAMINATION: CHEST: Clear. CARDIAC: Normal. ABDOMEN: Soft, nontender. EXTREMITIES: Normal. IMPRESSION: 1. Exacerbation of chronic obstructive pulmonary disease. 2. Coronary artery disease. PLAN: Continue with inpatient management and increase his activity with the idea that he may be able to go home in the next day or two. MMNETOL / IJN: [id number] /
[2024-08-13 07:50] VITALS: BP 147/93; RESP 19; TEMP 97.6
[2024-08-13] MEDS: predniSONE 20 MG TAB PO SCH (09:06)
[2024-08-13 09:21] VITALS: PULSE 115
[2024-08-13] MEDS: carvediloL 3.125 MG TAB PO STA (09:55)
--- NOTE | 2024-08-13 12:31 | P.PN ---
Subjective Progress Note Date: 08/13/24 Patient is a 59-year-old male with past medical history significant for COPD, current ongoing tobacco dependence, oxygen dependence, histoplasmosis lung infection, previous left-sided pneumothorax, coronary artery disease with previous PCI/stents, hypertension, paroxysmal A-fib, ischemic cardiomyopathy wi th a AICD. Patient does follow in the pulmonary office with Dr. Lundberg for management of his COPD/emphysema. Currently on a Trelegy inhaler. Started smoking again approximately 6 months ago, continues to smoke approximately 1/2 to 1 pack/day. He chronically wears 1 L home O2, mostly at night, which he has been wearing [id number] more recently. Reportedly, did see Dr. Lundberg in the office on 07/27/2024. Was given a steroid shot and oral steroid burst taper. He has previously received multiple courses of antibiotics outpatient. Presented the emergency department late last night with a chief complaint acute on chronic shortness of breath. States that he had a upper respiratory infection in April 2024, his respiratory status never returned to baseline. He has been treated in outpatient basis with multiple courses of steroids and antibiotics. Also, states his blood pressure was reading high at home. Workup in the emergency department including a chest x-ray which does not show any acute cardiopulmonary process. There is chronic apical scarring bilaterally. Viral screen negative for influenza A/B, RSV, COVID. CBC with a WBC count of 12.3, hemoglobin 17.5, platelets 243. BMP: Sodium 135, potassium 4.3, chloride 98, serum bicarb 28, BUN 15, creatinine 0.58, glucose 106. Lactic 1.1. LFTs not elevated. Troponin 0.042. NT proBNP only 878. EKG: Sinus tachycardia, rate 114 bpm, minimal ST depression in leads II, 3, aVF. No acute ST segment elevations. Recent outpatient stress test noted. Patient currently being evaluated emergency department. He is resting comfortably on 5 L/min nasal cannula. SpO2 reading 98% on bedside monitor. Audibly wheezing. He smells like tobacco smoke. Endorses increased work of breathing, chest tightness, wheezing and dry cough. Extreme dyspnea with minimal ambulation. Denies fevers. Denies any recent sick contacts. Denies any sputum production, hemoptysis, chest pain. Denies any heart palpitations, lightheadedness/syncopal events, orthopnea, increased lower extremity edema. Current vital signs: Temperature 97.8 F, heart rate 96 beats per minute, blood pressure 126/99 mmHg, nontachypneic, SPO2 recorded at 98% on 5 L/min nasal cannula. The patient is seen today August 10, 2024 in follow-up on the regular medical floor. He is currently up ambulating in his room. Awake and alert in no acute distress. Feeling better today compared to yesterday. Not quite back to his baseline. Still with some dyspnea with conversation. Dyspnea with activity. He is maintaining good O2 saturations in the upper 90s on 3 L/min per nasal cannula. He has been afebrile. Hemodynamically stable. CT scan of the chest revealed chronic appearing changes bilateral upper lung hendricks posterior right midlung. Small pericardial effusion. Emphysematous changes. White count 9.9. Hemoglobin 15.1. Platelets 206. Sodium 136. Potassium 4.7. Bicarb 28. BUN 22. Creatinine 0.6. Glucose 154. He is continued on DuoNeb inhalations, Symbicort, Solu-Medrol. NicoDerm patch in place. Remains on oral diuretics. Remains on azithromycin. The patient is seen today August 11, 2024 in follow-up on the regular medical rosi or. Currently sitting up in a chair at the bedside. Awake and alert in no acute distress. Maintaining O2 saturations in the upper 90s on 3 L/min per nasal cannula. He is afebrile. Hemodynamically stable. Magnesium 2.1. He remains on DuoNeb inhalations, Symbicort, Solu-Medrol. NicoDerm patch in place. The patient is seen today August 12, 2024 in follow-up on the regular medical floor. He is awake and alert in no acute distress. Sitting up in a chair. Still not quite back to his baseline. Still dyspneic with conversation. Dyspneic with exertion. He has been afebrile. Hemodynamically stable. Maintaining O2 saturations in the 90s on 3 L/min per nasal cannula. No new labs today. Is on DuoNeb inhalations, Symbicort, Solu-Medrol. Remains on oral diuretics. NicoDerm patch in place. The patient is seen today August 13, 2024 and follow-up on the regular medical floor. He is up in a chair at the bedside. Awake and alert in no acute distress. Maintaining O2 saturations in the 90s on 2 L/min per nasal cannula. He is afebrile. Hemodynamically stable. No new labs today. He is continued on DuoNeb inhalations, Symbicort, Solu-Medrol. He remains on oral diuretics. NicoDerm patch in place. Objective - Vital Signs Vital signs: Vital Signs Temp 97.6 F 08/13/24 07:00 Pulse 115 H 08/13/24 09:20 Resp 19 08/13/24 07:00 BP 147/93 08/13/24 07:00 Pulse Ox 95 08/13/24 09:14 FiO2 Intake & Output 08/12/24 08/13/24 08/13/24 18:59 06:59 18:59 Intake Total 590 222 240 Balance 590 222 240 Intake: Oral 590 222 240 Other: Voiding Method Toilet Toilet Toilet # Voids 3 2 1 # Bowel Movements 1 - Exam GENERAL EXAM: Alert, 59-year-old male, sitting up in a chair, on 3 L nasal cannula, comfortable in no apparent distress. HEAD: Normocephalic. EYES: Normal reaction of pupils, equal size. NOSE: Clear with pink turbinates. THROAT: No erythema or exudates. NECK: No masses, no JVD. CHEST: No chest wall deformity. LUNGS: Equal air entry with bilateral end expiratory wheeze. CVS: S1 and S2 normal with no audible murmur, regular rhythm. ABDOMEN: No hepatosplenomegaly, normal bowel sounds, no guarding or rigidity. SPINE: No scoliosis or deformity SKIN: No rashes CENTRAL NERVOUS SYSTEM: No focal deficits, tone is normal in all 4 extremities. EXTREMITIES: There is no peripheral edema. No clubbing, no cyanosis. Peripheral pulses are intact. - Labs CBC & Chem 7: 08/10/24 05:09 08/10/24 05:09 Assessment and Plan Assessment: Acute on chronic hypoxemic respiratory failure secondary to an acute exacerbation of chronic obstructive pulmonary disease Current and ongoing tobacco dependence Elevated troponin, likely secondary to supply/demand mismatch Moderate to severe chronic obstructive pulmonary disease, with an FEV1 50% of predicted; normally maintained on a combination of Trelegy inhaler, albuterol nebs [id number], and albuterol rescue inhaler as needed. Chronic hypoxemic respiratory failure History of pulmonary histoplasmosis History of previous left-sided pneumothorax History of coronary artery disease History of paroxysmal atrial fibrillation History of ischemic cardiomyopathy with AICD/pacemaker, ejection fraction of 30 to 35% Hypertension History of hyperlipidemia Plan: The patient was seen and evaluated Medications reviewed Cleared for discharge Continue his home oxygen Continue his home Trelegy, DuoNebs Complete a prednisone taper Educated regarding the importance of smoking cessation NicoDerm patch in place Keep his appointment as scheduled in our office 08/17/2024 This patient was seen independently by the pulmonary nurse practitioner addressing pulmonary issues I have personally seen and examined the patient, performed the documentation and the assessment and plan as written. Number of minutes spent on the visit: 25 Dictation was produced using varinode dictation software. Please excuse any grammatical, word or spelling errors.
--- NOTE | 2024-08-13 14:15 | DS ---
DISCHARGE SUMMARY CHIEF COMPLAINT: Difficulty breathing. HISTORY OF PRESENT ILLNESS AND PHYSICAL EXAMINATION: Details of this man's history and physical can be found in the initial workup. LABORATORY STUDIES: While he was in the hospital, he had laboratory studies, details of which can be found in the laboratory section of his chart. COURSE IN THE HOSPITAL: After admission, he was placed on bedrest and started on intravenous fluids with IV and inhaled steroids and updrafts. He is also seen by Cardiology because of his coronary artery disease and chest pain. He improved and was doing quite well and it was felt that he could be discharged on the . He will follow up in my office and he will also follow up with Cardiology. FINAL DIAGNOSES: 1. Exacerbation of chronic obstructive pulmonary disease. 2. Coronary artery disease. OPERATIONS: None. CONSULTATIONS: Cardiology and Pulmonology. MMRAHEEL / GAMALN: [id number] /
--- NOTE | 2024-08-13 14:49 | P.PN ---
Subjective Progress Note Date: 08/13/24 This is a pleasant 59-year-old gentleman patient of Dr. Owens with past medical history of CAD status post multiple stents done in the [place] area, ischemic cardiomyopathy, AICD, hypertension, hyperlipidemia, tobacco abuse, severe COPD and prior GI bleed. Presented to the hospital with complaints of w orsening shortness of breath. The patient previously quit smoking but had resumed. He had become progressively more short of breath. He has been on home oxygen since April. He complains of minimal lower extremity edema since starting steroids. He has complaints of random left-sided chest tightness not related to activity. He underwent outpatient Lexiscan done here in June that showed old infarct but could not exclude acute margoth-infarct ischemia. He was scheduled to see Dr. Owens a few days ago but canceled due to hospitalization. He continues to complain of significant shortness of breath, orthopnea and wheezing. He had an 11 beat run of nonsustained VT this morning at around 745 that was asymptomatic. Diagnostics -EKG: Sinus rhythm with PACs -Chest x-ray: Scarring changes in the upper lobes bilaterally, improved from 2021, no acute cardiopulmonary disease/process -Chest CT: Chronic appearing changes bilateral upper lung hendricks posterior right midlung, small pericardial effusion, emphysematous changes -Laboratory studies: Troponin 0.042, NT proBNP 878 -Home cardiac medications: Aspirin 81 mg p.o. daily, Lasix 20 mg p.o. daily, carvedilol 3.125 mg p.o. twice daily, Entresto 24-26 mg half a tablet p.o. twice daily. -Prior stress test: June 2024 old infarct/dilated cardiomyopathy involving the septum and apex, cannot exclude acute margoth-infarct ischemia -Echocardiogram: April 2023 ejection fraction 30% with segmental wall motion abnormality, mild to moderate MR mild TR and PA pressure 35 mmHg -Cardiac catheterization: Not available 08/12/2024 Patient was seen and examined sitting up in a chair. Overall does not feel much better compared to yesterday. Continues to feel quite short of breath with getting up to the bathroom. Continues to be followed by pulmonary. He denies any complaints of chest discomfort. Echocardiogram with Doppler study showed severely impaired LV systolic function with segmental wall motion abnormality similar to previous, ejection fraction 25 to 30% with mild MR and mild TR. 08/13/2024 Denies any chest pain chest pressure shortness of breath, appears euvolemic, still having wheezing on bilateral lung exam BP 147/93, heart rate 104 bpm. PHYSICAL EXAMINATION: This is a 59-year-old gentleman in no apparent distress at the time of my examination. VITAL SIGNS: Reviewed. HEENT: Head is atraumatic, normocephalic. Pupils are equal, round. Sclerae anicteric. Conjunctivae are clear. Mucous membranes of the mouth are moist. Neck is supple. There is no elevated jugular venous pressure. No carotid bruit is heard. CHEST EXAMINATION: Wheezing throughout. Respirations even and nonlabored. HEART EXAMINATION: Heart regular, positive S1 and S2. No S3. No S4. No clicks, rubs or murmurs. ABDOMEN: Soft, nontender. Bowel sounds are heard. No organomegaly noted. EXTREMITIES: 2+ peripheral pulses with no evidence of peripheral edema and no calf tenderness noted. NEUROLOGIC EXAMINATION: Patient is awake, alert and oriented x3. Assessment: 1. CAD status post multiple stenting, recent stress test showing possibility of acute margoth-infarct ischemia 2. Ischemic cardiomyopathy status post ICD patient appears euvolemic 3. Acute COPD exacerbation 4. Nicotine dependence Plan: Continue home medication without any changes Follow-up with Dr. Owens Patient is cleared from cardiovascular standpoint with recommended outpatient follow-up Objective - Vital Signs Vital signs: Vital Signs Temp 97.6 F 08/13/24 07:00 Pulse 115 H 08/13/24 09:20 Resp 19 08/13/24 07:00 BP 147/93 08/13/24 07:00 Pulse Ox 95 08/13/24 09:14 FiO2 Intake & Output 08/12/24 08/13/24 08/13/24 18:59 06:59 18:59 Intake Total 590 222 240 Balance 590 222 240 Intake: Oral 590 222 240 Other: Voiding Method Toilet Toilet Toilet # Voids 3 2 1 # Bowel Movements 1 - Labs CBC & Chem 7: 08/10/24 05:09 08/10/24 05:09
[2024-08-13] MEDS ORDERED: carvediloL 6.25 MG TAB PO SCH (17:30)
[2024-08-14] MEDS ORDERED: methylPREDNISolone 4 MG TAB TAPER PO SCH (09:00)
== END 2024-08-13 13:50 | disposition home or self-care (01) | DRG 190 ==
LOC: EC 21:29 → OBSVTOIN 08-09 00:46 → 6NMEDSUR 08-09 00:46
PROVIDERS: ADMIT Family Medicine; ATTEND Family Medicine
DX: J44.1 Chronic obstructive pulmonary disease with (acute) exacerbation (principal); J96.21 Acute and chronic respiratory failure with hypoxia; I11.0 Hypertensive heart disease with heart failure; I25.5 Ischemic cardiomyopathy; J43.9 Emphysema, unspecified; I50.9 Heart failure, unspecified; I48.0 Paroxysmal atrial fibrillation; F17.210 Nicotine dependence, cigarettes, uncomplicated; I25.10 Atherosclerotic heart disease of native coronary artery without angina pectoris; Z79.82 Long term (current) use of aspirin; Z79.899 Other long term (current) drug therapy; Z88.2 Allergy status to sulfonamides; Z95.810 Presence of automatic (implantable) cardiac defibrillator; E78.5 Hyperlipidemia, unspecified; Z88.8 Allergy status to other drugs, medicaments and biological substances; Z95.5 Presence of coronary angioplasty implant and graft; I25.2 Old myocardial infarction; Z99.81 Dependence on supplemental oxygen
CPT/HCPCS: 36415; 71045; 71260; 80048; 80053; 83605; 83735; 83880; 84484; 85025; 85610; 85730; 87636; 93005; 93306; 94640; 94760; 96365; 96366; 96375; 96376; 99285

== ENCOUNTER → 2024-11-13 | Outpatient (CLI) | payer MEDICARE ==
--- NOTE | 2024-11-13 08:36 | US ---
EXAMINATION TYPE: US abdomen complete DATE OF EXAM: 11/13/2024 COMPARISON: 06/24/2021 CLINICAL INDICATION: Male, 59 years old with history of R10.11 RUQ PAIN; Lump appears in RUQ, worse a t night, without pain, nausea, or vomiting. Social smoker. Patient denies any other signs, symptoms, or relevant history. TECHNIQUE: Grayscale and color Doppler imaging of the abdomen was performed. FINDINGS: EXAM MEASUREMENTS: Liver Length: 14.1 cm Gallbladder Wall: 0.2 cm CBD: 0.5 cm, color Doppler imaging was utilized to isolate the common bile duct for measurement. Spleen: 10.9 cm Right Kidney: Mid and inferior portion obscured by bowel gas cm Left Kidney: 12.9 x 5.3 x 5.8 cm DISPLAY DIRECTOR NOTES: Pancreas: wnl Liver: wnl, no dilated ducts, masses or cysts. Gallbladder: wnl Evidence for sonographic Caceres's sign: No CBD: wnl Spleen: wnl Right Kidney: Obscured by overlying bowel gas Left Kidney: wnl, No hydronephrosis, calculi or masses seen Upper IVC: wnl Abd Aorta: Obscured by overlying bowel gas The liver is homogenous. The intrahepatic portion of the IVC and proximal abdominal aorta are within normal limits. There is no evidence of cholelithiasis. The visualized portions of the pancreas are homogenous. The spleen is unremarkable. IMPRESSION: No evidence for acute process. No evidence for mass or lymphadenopathy. [facility], , 11/13/2024 8:33 AM
== END | disposition home or self-care (01) ==
LOC: RADUSWWP 08:02
PROVIDERS: ATTEND Family Medicine
DX: R10.11 Right upper quadrant pain (principal); F17.200 Nicotine dependence, unspecified, uncomplicated
CPT/HCPCS: 76700